=== PATIENT | male | born 1940 | race Caucasian/White ===

== ENCOUNTER 2016-07-30 12:01 | Outpatient (RCR) | payer MEDICARE, OTHER ==
--- OUTSIDE RECORDS SUMMARY | 2016-07-13 15:28 | XMS REPORT | Continuity of Care Document ---
Author Author [facility] Organization [facility] Address Unknown Phone Unavailable Care Team Providers Care Patient Portal Representative Name Role Phone Nidhi Roper PCP [phone] Source Comments Some departments are not documenting in the electronic medical record. If you do not see the information that you expected, contact Release of Information in the Health Information Management department at [phone] for further assistance in locating additional records.[facility] Active Allergies and Adverse Reactions No Known Allergies Current Medications Prescription Sig. Disp. Refills Start End Date Status Date furosemide (LASIX) 40 mg Take 40 mg by mouth Active tablet daily. atorvastatin (LIPITOR) 10 Take 10 mg by mouth Active mg tablet daily. aspirin 81 mg chewable Take 81 mg by mouth Active tablet daily. benazepril (LOTENSIN) 40 Take 40 mg by mouth Active mg tablet daily. glyBURIDE (DIABETA) 5 mg Take 2.5 mg by mouth Active tablet daily with breakfast. metFORMIN-XR(+) Take 500 mg by mouth Active (GLUCOPHAGE XR) 500 mg daily with dinner. tablet spironolactone Take 25 mg by mouth every Active (ALDACTONE) 25 mg tablet 48 hours. COD LIVER OIL PO Take by mouth daily. Active GARLIC PO Take by mouth daily. Active apixaban (ELIQUIS) 5 mg Take 1 Tab by mouth twice 30 Tab 0 06/10/20 Active tab tablet daily. 15 metoprolol XL (TOPROL XL) Take 1.5 Tabs by mouth 135 Tab 3 06/10/20 Active 50 mg tablet daily. 15 Active Problems Problem Noted Date Chronic combined systolic and diastolic congestive heart failure (HCC) 05/17 Typical atrial flutter (HCC) 05/17/2015 Overview: 04/19/15: Successful DCCV. 04/19/15: CROW: EF 35-40%. Moderately impaired LV function. Moderate AV sclerosis. No thrombus. Mild MR. 04/18/15: Echo: LA size 5.1cm. EF 30%. 04/17/15: CT angio chest: No Pulm Embolism. Cardiac enlargement wit post sternotomy changes. Coronary artery disease involving coronary bypass graft of [place] heart without angina pectoris Overview: 2009: CABG at [place] Essential hypertension 05/17/2015 Type 2 diabetes mellitus (HCC) 05/17/2015 Social History Tobacco Use Types Packs/Day Years Used Date Former Smoker Cigarettes 0.5 5 Quit: 09/02/1984 Smokeless Tobacco: Former Chew User Alcohol Use Drinks/Week oz/Week Comments No Last Filed Vital Signs Vital Sign Reading Time Taken Blood Pressure 152/80 06/10/2015 10:22 AM CDT Pulse 70 06/10/2015 10:22 AM CDT Temperature 36.7 C (98.1 F) 06/10/2015 10:22 AM CDT Respiratory Rate - - Height 1.829 m (6') 06/09/2015 7:27 AM CDT Weight 83 kg (182 lb 15.7 oz) 06/09/2015 7:27 AM CDT Body Mass Index 24.81 06/09/2015 7:27 AM CDT Oxygen Saturation 100% 06/10/2015 10:22 AM CDT Plan of Care Health Maintenance Due Date Last Done Comments Physical (Comprehensive) 1947 Exam Pertussis Vaccine 1952 Tetanus Vaccine 1958 Dilated Eye Exam 1959 Foot Exam 1959 Hba1c 1959 Microalbumin 1959 Colorectal Cancer 1991 Screening Shingles Vaccine 2001 Prevnar/Pneumovax (#1) 2006 Influenza Vaccine 05/03/2016 Results from Last 3 Months Not on file
[~2016-07-30 12:01] MED LIST: AMLO10TA2 PO; AMLO5TAB2 PO; APIX5TAB PO; ASPI-983 PO; ATEN-147 PO; ATEN25TA PO; ATOR10TA66 PO; BENA40TA59 PO; BNZ40T PO; CEFU500T PO; COD1CAPS6 PO; DIGO250T PO; DIGO250T15 PO; FRSM40T PO; FURO40TA4 PO; GARL1CAP7 PO; GLYB2.5T2 PO; GLYB5TAB6 PO; KCL10CCR PO; METF500T8 PO; METO-272 PO; METO-274 PO; METO-351 PO; METO-352 PO; PRD20T PO; SPIR25TA3 PO
== END 2016-10-11 | disposition home or self-care (01) ==
LOC: CR 12:01
PROVIDERS: ATTEND Internal Medicine Cardiovascular Disease
DX: I50.9 Heart failure, unspecified (principal)
CPT/HCPCS: 93798

== ENCOUNTER → 2016-09-06 | Outpatient (CLI) | payer MEDICARE, OTHER ==
[~2016-09-06] MED LIST changes: +ALLO100T PO; +AMIO200T2 PO; +AMOX1TAB12 PO; +APIX2.5T PO; +METO-270 PO; +OSLT75C PO; +SACU1TAB PO
--- OUTSIDE RECORDS SUMMARY | 2016-09-06 13:09 | XMS REPORT | Continuity of Care Document ---
Author Author [facility] Organization [facility] Address Unknown Phone Unavailable Care Team Providers Care Certified Paralegal Name Role Phone Nidhi Roper PCP [phone] Source Comments Some departments are not documenting in the electronic medical record. If you do not see the information that you expected, contact Release of Information in the Health Information Management department at [phone] for further assistance in locating additional records.[facility] Active Allergies and Adverse Reactions No Known Allergies Current Medications Prescription Sig. Disp. Refills Start End Date Status Date furosemide (LASIX) 40 mg Take 40 mg by mouth twice Active tablet daily. glyBURIDE (DIABETA) 5 mg Take 2.5 mg by mouth Active tablet daily with breakfast. COD LIVER OIL PO Take by mouth daily. Active GARLIC PO Take by mouth daily. Active apixaban (ELIQUIS) 5 mg Take 1 Tab by mouth twice 30 Tab 0 06/10/20 Active tab tablet daily. 15 sacubitril/valsartan Take 1 Tab by mouth twice Active (ENTRESTO) 24/26 mg daily. tablet digoxin (DIGOX) 125 mcg Take 125 mcg by mouth Active tablet daily. allopurinol (ZYLOPRIM) Take 100 mg by mouth Active 100 mg tablet daily. Take with food. metoprolol XL (TOPROL XL) Take 2 Tabs by mouth 135 Tab 3 09/05/19 Active 50 mg extended release daily. 17 tablet atorvastatin (LIPITOR) 10 Take 10 mg by mouth 09/05/19 Discontin mg tablet daily. 17 ued aspirin 81 mg chewable Take 81 mg by mouth 09/05/19 Discontin tablet daily. 17 ued benazepril (LOTENSIN) 40 Take 40 mg by mouth 09/05/19 Discontin mg tablet daily. 17 ued metFORMIN-XR(+) Take 500 mg by mouth 09/05/19 Discontin (GLUCOPHAGE XR) 500 mg daily with dinner. 17 ued tablet spironolactone Take 25 mg by mouth every 09/05/19 Discontin (ALDACTONE) 25 mg tablet 48 hours. 17 ued metoprolol XL (TOPROL XL) Take 1.5 Tabs by mouth 135 Tab 3 06/10/20 09/05/19 Discontin 50 mg tablet daily. 15 17 ued Active Problems Problem Noted Date Ischemic cardiomyopathy 09/05/2016 Overview: 04/08/16 implantation of ICD - functioning normally but with high pacing threshold. last interrogation 07/11/16 04/13/16 Echo: EF 20%, 10/14/15 Echo: LVEF 25% 05/24/15 MUGA LVEF 33%, 05/19/15 MPE LVEF 22% 04/18/15 - 04/18/15 Echo and CROW LVEF 35 - 40% 02/07/16 [facility]: Single chamber ICD implantation: [employer] [place] passive dual coil 64 cm lead with model number 0286 and serial number [id number], lead - [employer] model E140 serial number [id number] Chronic combined systolic and diastolic congestive heart failure (HCC) 05/17 Typical atrial flutter (HCC) 05/17/2015 Overview: 04/19/15: Successful DCCV. 04/19/15: CROW: EF 35-40%. Moderately impaired LV function. Moderate AV sclerosis. No thrombus. Mild MR. 04/18/15: Echo: LA size 5.1cm. EF 30%. 04/17/15: CT angio chest: No Pulm Embolism. Cardiac enlargement wit post sternotomy changes. Coronary artery disease involving coronary bypass graft of [place] heart without angina pectoris Overview: 2008: CABG at [facility]. CABG x 5 - CARDONA to LAD x 2, 2 SVG to Right ventricular epicardial branch and PDA, SVG to obtuse marginal, Ligation of the left atrial appendage 05/19/15 MPI did not show ischemia or infarction but there was LV enlargement at 22% 04/13/16 Echo: marked impairment of LV systolic function with EF 20%, global hypokinesis of the LV, more marked in the anteroseptal wall. Mod Severe MR and TR mild to mod mitral anular calcification and aortic valve sclerosis without evidence of significant valvular stenosis. PASP est to approx 40 mmHg. Mod to mod severe enlargement of the LA Essential hypertension 05/17/2015 Type 2 diabetes mellitus (HCC) 05/17/2015 Most Recent Encounters Date Type Specialty Providers Description 09/13/2016 Hospital Cardiology Gagan Hernández MD Encounter 09/05/2016 Hospital Cardiology Gagan Hernández MD Arrived Encounter 09/05/2016 Office Visit Cardiology Gagan Hernández MD Atrial Flutter 09/05/2016 Pre-Procedure Cardiology Glenna Calles RN EP Pre-Procedure Instructions Instructions - tikosyn administration, AVN RFA, device upgrade to SECURITIES ATTORNEY-D and RV lead repositioning 09/05/2016 Orders Only Cardiology Mac, Referring 09/05/2016 Documentation Cardiology Дмитрий Toney RN Precertification - Medicare 09/05/2016 Pre-Procedure Cardiology Glenna Calles RN EP Pre-Procedure Instructions Instructions - tikosyn admission, AVN RFA and upgrade device with lead repositioning and cardioversion 09/05/2016 Orders Only Cardiology Angelina Shetty RN Ischemic cardiomyopathy (Primary Dx) 08/06/2016 Orders Only Cardiology Kaci Centeno Atrial fibrillation, unspecified type (HCC) (Primary Dx) Social History Tobacco Use Types Packs/Day Years Used Date Former Smoker Cigarettes 0.5 5 Quit: 09/02/1984 Smokeless Tobacco: Former Chew User Alcohol Use Drinks/Week oz/Week Comments No Last Filed Vital Signs Vital Sign Reading Time Taken Blood Pressure 124/90 09/05/2016 8:33 AM CONTROL INSPECTOR Pulse 116 09/05/2016 8:33 AM CONTROL INSPECTOR Temperature 36.7 C (98.1 F) 06/10/2015 10:22 AM CDT Respiratory Rate - - Height 1.854 m (6' 1") 09/05/2016 8:33 AM CONTROL INSPECTOR Weight 87.998 kg (194 lb) 09/05/2016 8:33 AM CONTROL INSPECTOR Body Mass Index 25.6 09/05/2016 8:33 AM CONTROL INSPECTOR Oxygen Saturation 100% 06/10/2015 10:22 AM CDT Plan of Care Date Type Specialty Providers Description 09/13/2016 Surgery Cardiology Gagan Hernández MD Upgrade to SECURITIES ATTORNEY-D [address] [place] [address] [phone] (Fax) 09/13/2016 Surgery Cardiology Gagan Hernández MD Atrio-Ventricular Node [address] [place] [address] [phone] (Fax) 12/04/2016 Appointment Cardiology Gagan Hernández MD [address] [place] [address] [phone] (Fax) 12/04/2016 Appointment Cardiology Gagan Hernández MD [address] [place] [address] [phone] (Fax) Health Maintenance Due Date Last Done Comments Physical (Comprehensive) 1947 Exam Pertussis Vaccine 1952 Tetanus Vaccine 1958 Dilated Eye Exam 1959 Foot Exam 1959 Hba1c 1959 Microalbumin 1959 Colorectal Cancer 1991 Screening Shingles Vaccine 2001 Prevnar/Pneumovax (#1) 2006 Influenza Vaccine 05/03/2016 Results from Last 3 Months ECG/QRS (09/05/2016) Component Value Range QRS DURATION 102
--- NOTE | 2016-09-06 15:21 | Diagnostic Imaging Report ---
INDICATION: Congestive heart failure. PA and lateral chest. FINDINGS: There are postop changes from a median sternotomy. There is a unipolar pacemaker with AICD. There is elevation of the left hemidiaphragm. There is a small left pleural effusion with some left basilar atelectasis. IMPRESSION: Left basilar atelectasis and effusion. No change compared to 08/03/2016. Dictated by: Dictated on workstation # [id number]
== END ==
LOC: RAD 13:05
PROVIDERS: ATTEND Family Medicine
DX: I50.42 Chronic combined systolic (congestive) and diastolic (congestive) heart failure (principal); J98.11 Atelectasis; J90 Pleural effusion, not elsewhere classified; Z95.0 Presence of cardiac pacemaker
CPT/HCPCS: 71020

== ENCOUNTER 2016-10-21 19:34 | Inpatient (IN) | payer MEDICARE, OTHER ==
[~2016-10-21] VITALS: Ht 182.9 cm; Wt 84.8 kg
[~2016-10-21 19:34] MED LIST changes: -ALLO100T PO; -AMIO200T2 PO; -AMOX1TAB12 PO; -APIX2.5T PO; -METO-270 PO; -OSLT75C PO; -SACU1TAB PO
--- OUTSIDE RECORDS SUMMARY | 2016-10-21 19:40 | XMS REPORT | Continuity of Care Document ---
Author Author [facility] Organization [facility] Address Unknown Phone Unavailable Care Team Providers Care [employer] Collision Estimator Name Role Phone Judson Nidhi PCP [phone] Source Comments Some departments are not documenting in the electronic medical record. If you do not see the information that you expected, contact Release of Information in the Health Information Management department at [phone] for further assistance in locating additional records.[facility] Active Allergies and Adverse Reactions No [...] twice Active (ENTRESTO) 24/26 mg daily. tablet allopurinol (ZYLOPRIM) Take 100 mg by mouth Active 100 mg tablet daily. Take with food. metoprolol XL (TOPROL XL) Take 3 Tabs by mouth 90 Tab 3 09/19/19 Active 25 mg extended release daily. Indications: 17 tablet CHRONIC HEART FAILURE amiodarone (CORDARONE) Take 1 Tab by mouth 90 Tab 3 09/19/19 Active 200 mg tablet daily. Take with food. 17 spironolactone Take 1 Tab by mouth 90 Tab 3 09/19/19 Active (ALDACTONE) 25 mg tablet daily. Take with food. 17 Active Problems Problem Noted Date Acute combined systolic and diastolic CHF, NYHA class 2 (HCC) 09/24/2016 Torsades de pointes (HCC) 09/19/2016 ICD (implantable cardioverter-defibrillator), biventricular, in situ 2016 Overview: 2016 Single-chamber ICD ([employer]) 09/13/16 RV lead revision, RA/LV lead placement and upgrade to BATCH UNLOADER-D (Defibrillation threshold testing (DFTs) at the time of implant) Paroxysmal atrial fibrillation (HCC) 09/12/2016 Overview: 09/17/16 Tikosyn Initiation 09/13/16 AV Katherine Radiofrequency Ablation Ischemic cardiomyopathy 09/05/2016 Overview: 04/08/16 implantation of ICD - functioning normally but with high pacing threshold. last interrogation 07/11/16 04/13/16 Echo: EF 20%, 10/14/15 Echo: LVEF 25% 05/24/15 MUGA LVEF 33%, 05/19/15 MPE LVEF 22% 04/18/15 - 04/18/15 Echo and CROW LVEF 35 - 40% 02/07/16 [facility]: Single chamber ICD implantation: [employer] [place] passive dual coil 64 cm lead with model number 0286 and serial number [id number], lead - [employer] model E140 serial number [id number] Chronic combined systolic and diastolic congestive heart failure (HCC) 05/17 Typical atrial flutter (HCC) 05/17/2015 Overview: 04/19/15: Successful DCCV. 04/19/15: CROW: EF 35-40%. Moderately impaired LV function. Moderate AV sclerosis. No thrombus. Mild MR. 04/18/15: Echo: LA size 5.1cm. EF 30%. 04/17/15: CT angio chest: No Pulm Embolism. Cardiac enlargement wit post sternotomy changes. Coronary artery disease involving coronary bypass graft of sun'aq heart without angina pectoris Overview: 2008: CABG at [facility]. CABG x 5 - CARDONA to [...] Recent Encounters Date Type Specialty Providers Description 09/19/2016 Hospital Cardiology Ggaan Hernández MD Encounter 09/19/2016 Ancillary Cardiology Gagan Hernández MD Biventricular ICD Orders (implantable cardioverter-defibrillato r) in place (Primary Dx); Ischemic cardiomyopathy 09/18/2016 Surgery Cardiology Cath, Physician Coronary Angiography 09/14/2016 [facility] Cardiology Gagan Hernández MD Encounter 09/13/2016 Hospital Cardiology Gagan Hernández MD Encounter 09/13/2016 Surgery Cardiology Gagan Hernández MD Atrio-Ventricular Node Ablation 09/13/2016 Surgery Cardiology Gagan Hernández MD Fluoroscopy 09/12/2016 [facility] Cardiology Khushboo Costa APRN Encounter 09/12/2016 [facility] Joe Watson MD Essential hypertension - Encounter Gagan Hernández MD 09/19/2016 Alesia Jerry MD Mulhern, Kevin M, MD 09/12/2016 [facility] Tamra Reid PA-C Illness, unspecified Encounter 09/12/2016 [facility] Cardiology Joe Watson MD Encounter 09/12/2016 Anesthesia Cardiology Maicol Dixon MD Event 09/10/2016 Pre-Admit Cardiology Tamra Reid PA-C Orders Only 09/10/2016 Documentation Cardiology Conchis Dukes RN Labs Only - Pre -procedure labs 09/05/2016 [facility] Cardiology Gagan Hernández MD Encounter 09/05/2016 Office Visit Cardiology Gagan Hernández MD Atrial Flutter 09/05/2016 Pre-Procedure Cardiology Glenna Calles, VIVEK EP Pre-Procedure Instructions Instructions - tikosyn administration, AVN RFA, device upgrade to BATCH UNLOADER-D and RV lead repositioning 09/05/2016 Orders Only Cardiology Mac, Referring 09/05/2016 Documentation Cardiology Дмитрий Toney RN Precertification - Medicare 09/05/2016 Pre-Procedure Cardiology Glenna Calles, VIVEK EP Pre-Procedure Instructions Instructions - tikosyn admission, [...] Vital Sign Reading Time Taken Blood Pressure 94/63 09/19/2016 12:08 PM YIELD ENGINEER Pulse 80 09/19/2016 12:08 PM YIELD ENGINEER Temperature 36.5 C (97.7 F) 09/19/2016 12:08 PM YIELD ENGINEER Respiratory Rate - - Height 1.829 m (6') 09/13/2016 7:51 PM YIELD ENGINEER Weight 89.812 kg (198 lb) 09/19/2016 6:00 AM YIELD ENGINEER Body Mass Index 26.85 09/19/2016 6:00 AM YIELD ENGINEER Oxygen Saturation 97% 09/19/2016 12:08 PM YIELD ENGINEER Plan of Care Date Type Specialty Providers Description 12/04/2016 Appointment Cardiology Gagan Hernández MD [address] [facility] [address] [place] [address] [phone] (Fax) 12/04/2016 Appointment Cardiology Gagan Hernández MD [address] [facility] [address] [place] [address] [phone] (Fax) 12/20/2016 Appointment Cardiology Health Maintenance Due Date Last Done Comments Physical (Comprehensive) 1948 Exam Pertussis Vaccine 1952 Tetanus Vaccine 1958 Dilated Eye Exam 1959 Foot Exam 1959 Hba1c 1959 Microalbumin 1959 Colorectal Cancer 1991 Screening Shingles Vaccine 2001 Prevnar/Pneumovax (#1) 2006 Influenza Vaccine 05/03/2016 Procedures from Last 3 Months Procedure Name Priority Date/Time Associated Diagnosis Comments ECG-SCAN 09/25/2016 Results for this 9:18 AM YIELD ENGINEER procedure are in the results section. ECG-SCAN 09/25/2016 Results for this 9:18 AM YIELD ENGINEER procedure are in the results section. TELEMETRY STRIPS-SCAN 09/24/2016 Results for this 1:09 PM YIELD ENGINEER procedure are in the results section. PROCEDURE RECORD-SCAN 09/21/2016 Results for this 10:15 AM YIELD ENGINEER procedure are in the results section. ECG UNCONFIRMED-SCAN 09/21/2016 Results for this 8:57 AM YIELD ENGINEER procedure are in the results section. ECG UNCONFIRMED-SCAN 09/21/2016 Results for this 8:57 AM YIELD ENGINEER procedure are in the results section. ECG UNCONFIRMED-SCAN 09/21/2016 Results for this 8:57 AM YIELD ENGINEER procedure are in the results section. ECG UNCONFIRMED-SCAN 09/21/2016 Results for this 8:57 AM YIELD ENGINEER procedure are in the results section. ECG UNCONFIRMED-SCAN 09/21/2016 Results for this 8:57 AM YIELD ENGINEER procedure are in the results section. ECG-SCAN 09/21/2016 Results for this 8:56 AM YIELD ENGINEER procedure are in the results section. ECG-SCAN 09/21/2016 Results for this 8:56 AM YIELD ENGINEER procedure are in the results section. ECG-SCAN 09/21/2016 Results for this 8:56 AM YIELD ENGINEER procedure are in the results section. ECG-SCAN 09/21/2016 Results for this 8:56 AM YIELD ENGINEER procedure are in the results section. ECG-SCAN 09/21/2016 Results for this 8:56 AM YIELD ENGINEER procedure are in the results section. ECG-SCAN 09/19/2016 Results for this 10:28 AM YIELD ENGINEER procedure are in the results section. ECG-SCAN 09/19/2016 Results for this 10:28 AM YIELD ENGINEER procedure are in the results section. ECG-SCAN 09/19/2016 Results for this 10:28 AM YIELD ENGINEER procedure are in the results section. ECG-SCAN 09/19/2016 Results for this 10:28 AM YIELD ENGINEER procedure are in the results section. ECG-SCAN 09/14/2016 Results for this 8:36 AM YIELD ENGINEER procedure are in the results section. ECG-SCAN 09/14/2016 Results for this 8:36 AM YIELD ENGINEER procedure are in the results section. CONSULT IV THERAPY TEAM Routine 09/12/2016 3:10 PM YIELD ENGINEER Results from Last 3 Months ECG-SCAN (09/25/2016 9:18 AM) Narrative Ordered by an unspecified provider. ECG-SCAN (09/25/2016 9:18 AM) Narrative Ordered by an unspecified provider. TELEMETRY STRIPS-SCAN (09/24/2016 1:09 PM) Narrative Ordered by an unspecified provider. PROCEDURE RECORD-SCAN (09/21/2016 10:15 AM) Narrative Ordered by an unspecified provider. CARDIAC CATH REPORT (09/21/2016 9:46 AM) Procedure Note e Sep 18, 2016 5:48 PM YIELD ENGINEER Formatting of this note may be different from the original. [facility] CARDIAC CATHETERIZATION REPORT Page 2 NISHANT Morales : 1940 KU#: [id number] MR #/Billing ID #: [id number] / [id number] DATE: 09/18/2016 ICE CRUSHER: Han Amaya MD DICTATING PROVIDER: Isauro Charles MD REFERRING PHYSICIAN: NIDHI FARIAS FELLOW: Isauro Charles MD PROCEDURES PERFORMED: 1. Left heart catheterization. 2. Selective angiography. 3. Graft angiography of the saphenous venous graft to the jump graft to PDA and right marginal artery. 4. Graft angiography, which is a jump graft from SVG to OM-1 and OM-2. 5. Graft angiography of CARDONA to LAD. INDICATION FOR PROCEDURE: Mr. Nishant Farias is a 75-year-old man who was on Tikosyn and had developed torsades. Given patient has a history of coronary artery disease, status post CABG, there was some concern that this torsades may be an ischemic origin and as a result of which they wanted to get a cardiac catheterization. Patient referred to us for cardiac catheterization. WRITTEN INFORMED CONSENT: Mr. Nishant Farias was consented in the holding area after a thorough explanation of the risks and benefits of the procedure, including alternatives of the procedure. Patient agreed to proceed and gave the written informed consent. DETAILS OF THE PROCEDURE: Mr. Nishant Farias was brought to cardiac catheterization laboratory in a fasting and nonsedated state. Moderate sedation was achieved with 1 mg of Versed and 25 mcg IV fentanyl during the entire procedure and this was maintained. All neurological, hemodynamic, and respiratory parameters, including respiratory rate, heart rate, blood pressure, EKG, level of consciousness, respiratory rate, and pulse oximetry were monitored during the entire procedure by myself, Dr. Han Amaya, and the optical lab technician staff. Total duration of the procedure was 36 minutes. After sterile prep and drape, 20 mL of 1% lidocaine was injected in the right groin subcutaneously, and a 5-[place] long sheath was inserted into the right femoral artery over the regular J-tip guidewire as there was tortuosity noted in the iliac arteries. Once the long sheath was in place, a 5-[place] JL4 was advanced over the guidewire into the aortic root and engaged to the left coronary ostia and left coronary artery images done in multiple views. JL4 removed. A 5-[place] JR4 was advanced over the guidewire into the aortic root and engaged to the right coronary ostia, and right coronary artery images done in multiple views. Then, the JR4 was engaged to the saphenous venous graft to the PDA and saphenous venous graft to PDA angiography done. This graft was also a jump graft to the right active marginal artery. Then, the JR4 was engaged to the saphenous venous graft, which is a jump graft to OM-1 and OM-2, and graft angiography done. Then, JR4 was pulled back, and then further using a guidewire we were able to engage to the left subclavian artery. Over the guidewire, we were able to advance the JR4 all the way into the CARDONA. The CARDONA to LAD angiography done. This beltran the end of the diagnostic coronary angiography and graft angiography. JR4 catheter removed. Then, a 5-[place] pigtail catheter advanced over the guidewire into the aortic root and further advanced into the LV, and LV pressure measurements done. Then, the pigtail catheter pulled back from LV into the aorta, and LV-AO pullback gradient recorded. This beltran the end of the left heart catheterization. After reviewing the images, this was the end of the case. HEMOSTASIS: Hemostasis was achieved at the right femoral arterial access site using the manual sheath pullout ACT protocol in the holding area. FINDINGS OF THE PROCEDURE: HEMODYNAMICS: 1. Aortic systolic pressure 118 with a diastolic of 66 with a mean of 83 mmHg. 2. Left ventricle systolic pressure 118 with left ventricular end-diastolic pressure of 15 mmHg. CORONARY ANGIOGRAPHY FINDINGS: 1. Left main: Left main is a large vessel arising from the left coronary cusp. It bifurcates into LAD and left circumflex. Left main has some calcification. It has no significant stenosis. 2. LAD: LAD is a type 3 configuration vessel wrapping around the apex. However, it is high grade haziness, calcified lesion in the proximal portion, around 80% to 90% stenosis. It gives rise to 4 diagonal branches before the competitive flow is noted from CARDONA to LAD. These 4 diagonal branches are small branches, around 1.5 to 2 mm vessels. 3. Left circumflex: Left circumflex has a high-grade stenosis in the proximal portion, around 80% to 90% haziness. After this, it gives rise to an AV groove branch, and after this is completely occluded. There seems to be competitive flow noted in the OM-1; however, there is no competitive flow noted in the distal left circumflex, is probably a continuation for OM-2. 4. RCA: RCA is a large, dominant vessel arising from right coronary cusp. It has 100% occlusion in the mid RCA SHREDDER OPERATOR and then multiple sequential high-grade lesions in the proximal portion. 5. Saphenous venous graft to PDA and jump graft to the right acute marginal artery. This is widely patent and has around 20% stenosis right around the anastomosis of the SVG to the PDA, but it is widely patent and has no other significant stenosis. 6. Saphenous venous graft, which is a jump graft to OM-1 and sequential graft to OM-1 and OM-2. The sequential graft to OM-1 is widely patent, but sequential to OM-2 is completely occluded. 7. CARDONA to LAD: CARDONA to LAD is widely patent and post anastomosis the LAD is a medium-size vessel, which wraps around the apex and a type 3 configuration, with no significant stenosis. BLOOD LOSS: 20 mL. SPECIMENS REMOVED: None. COMPLICATIONS: None. CONTRAST: Type Visipaque 320, amount 70 mL. FLUORO TIME: 7.8 minutes. AIR KERMA: 866 mGy. MEDICATIONS USED: 1. 1% lidocaine 20 mL subcutaneously. 2. Fentanyl 25 mg IV. 3. Versed 1 mg IV. CONCLUSIONS AND RECOMMENDATIONS: 1. Multivessel CAD with 80% to 90% high-grade occlusion of proximal LAD, 80% to 90% stenosis of the proximal left circumflex, 100% occlusion of the distal left circumflex into OM-2, 100% occlusion of the mid RCA with patent saphenous venous graft to PDA/right marginal artery, patent SVG graft to OM-1, but occluded sequential portion to OM-2, patent CARDONA to LAD, and normal LV filling pressures, LVEDP of 15 mmHg. 2. If there is ischemia and patient has recurrent symptoms or torsades in absence of Tikosyn or other confounding factors, can consider intervention to the distal left circumflex into OM-2, which has an occluded graft portion so the sun'aq vessel can be opened up. 3. Risk factor and lifestyle modification changes. Dr. Han Amaya was present throughout the procedure, monitoring and supervision, performing important parts of the procedure himself when necessary. I was personally present throughout the entire procedure. Han Amaya MD JP/Melissa /[id number] cc: - NIDHI Farias DO, [address] [place] [address], Fax: [phone] ECG UNCONFIRMED-SCAN (09/21/2016 8:57 AM) Narrative Ordered by an unspecified provider. ECG UNCONFIRMED-SCAN (09/21/2016 8:57 AM) Narrative Ordered by an unspecified provider. ECG UNCONFIRMED-SCAN (09/21/2016 8:57 AM) Narrative Ordered by an unspecified provider. ECG UNCONFIRMED-SCAN (09/21/2016 8:57 AM) Narrative Ordered by an unspecified provider. ECG UNCONFIRMED-SCAN (09/21/2016 8:57 AM) Narrative Ordered by an unspecified provider. ECG-SCAN (09/21/2016 8:56 AM) Narrative Ordered by an unspecified provider. ECG-SCAN (09/21/2016 8:56 AM) Narrative Ordered by an unspecified provider. ECG-SCAN (09/21/2016 8:56 AM) Narrative Ordered by an unspecified provider. ECG-SCAN (09/21/2016 8:56 AM) Narrative Ordered by an unspecified provider. ECG-SCAN (09/21/2016 8:56 AM) Narrative Ordered by an unspecified provider. DEVICE EVALUATION - REMOTE ICD (09/19/2016 4:50 PM) Component Value Range Generator Model # INOGEN X4 BATCH UNLOADER-D G148 Generator Serial # [id number] Generator Implnat Date 09/13/2016 GUILLERMINA/EOL Indicator j2ee programmer/transmitter indicated Generator Local Delivery Driver [employer] Generator Investigational No Wireless Generator Yes Device Type BATCH UNLOADER-D Device Wolford Latitude Consult Transmitter Compatible Atrial Lead Model # CapSureFix [id number] MRI SureScan 5076 - 52cm Atrial Lead Serial # [id number] Atrial Lead Implant Date 09/13/2016 Atrial Lead Diaph. 10 Stimulation Atrial Lead Local Delivery Driver Medtronic Atrial Lead No Investigational Atrial Lead Fixation active fixation Atrial Lead Location mid lateral right atrium Atrial Lead Pin Connector IS1 Atrial Lead Polarity Bipolar RV Lead Model # ENDOTAK RELIANCE G Model 0296 64cm RV Lead Serial # [id number] RV Lead Implant Date 09/13/2016 RV Lead Diaph. 10 Stimulation RV Lead Local Delivery Driver [employer] RV Lead Investigational No RV Lead Fixation active fixation RV Lead Location RV low septum RV Lead Pin Connector ICD IS1 RV Lead Coil Dual LV Lead Model # ACUITY X4 Spiral S Model 4674 LV Lead Serial # [id number] LV Lead Implant Date 09/13/2016 LV Lead Polarity Other IS4 LV Lead Configuration E1-E3 Other LV Lead Local Delivery Driver [employer] LV Lead Investigational No LV Lead Fixation passive fixation LV Lead Location posterior lateral vein LV Lead Polarity Mulitpolar Device Mode DDD Lower Rate Limit 90 Upper Rate Limit 130 Sensor Rate Limit 130 Pace AV Delay 180 Sense AV Delay 180 VT Detect Rate (bpm) 150 VT Detect Rate Tx MONITOR ONLY FVT Detect Rate (bpm) 185 FVT Detect Rate Tx ATP AND SHOCKS VF Detect Rate (bpm) 220 VF Detect Rate Tx ATP AND SHOCKS Mode Switch (bpm) 150 Mode Switch Status On Device Implanted By Gagan Hernández MD EP Device Followed by Dr. Hernández Name Pacemaker Dependant Yes EP Device Followed By [facility] Date of Last Remote Check 09/14/16 Next Remote Check Due 12/20/16 AT/AF Daily Exira Hours 6 Remote Monitoring? Yes Remote Check? Yes Daily Exira Threshld On Alert? VF Detection/Therapy Off On Narrative Current Monitoring Period: 09/14/16 - 12/20/16 INITIAL TRANSMISSION: NO CHARGE [09/20/2016 9:39:30 AM - LATOYA EL] Remote alert for ventricular shock therapy delivered to convert arrhythmia. Known issue. Pt was in hospital at time. Device implanted 09/13/16. Shock occurred 09/14/16 at 15:20. Shock X 1 successful. 286 avg V rate bpm. See notes in chart from 09/14/16 for further detail. See attached report for further detail. Report sent to [facility] for review. [09/19/2016 4:51:29 PM - JACK SHEEHAN]This is an initial transmission post implant.No current data to report for measurements. No events.AP-BiVP on presenting. POC GLUCOSE (09/19/2016 12:08 PM)Only the most recent of 31 results within the time period is included. Component Value Range Glucose, POC 163 (H) 70-100 MG/DL ECG-SCAN (09/19/2016 10:28 AM) Narrative Ordered by an unspecified provider. ECG-SCAN (09/19/2016 10:28 AM) Narrative Ordered by an unspecified provider. ECG-SCAN (09/19/2016 10:28 AM) Narrative Ordered by an unspecified provider. ECG-SCAN (09/19/2016 10:28 AM) Narrative Ordered by an unspecified provider. CBC (09/19/2016 4:57 AM)Only the most recent of 9 results within the time period is included. Component Value Range White Blood Cells 8.9 4.5-11.0 K/UL RBC 5.94 (H) 4.4-5.5 M/UL Hemoglobin 16.1 13.5-16.5 GM/DL Hematocrit 51.5 (H) 40-50 % MCV 86.7 80-100 FL MCH 27.2 26-34 PG MCHC 31.3 (L) 32.0-36.0 G/DL RDW 20.8 (H) 11-15 % Platelet Count 126 (L) 150-400 K/UL MPV 9.1 7-11 FL Specimen Blood BASIC METABOLIC PANEL (09/19/2016 4:57 AM)Only the most recent of 12 results within the time period is included. Component Value Range Sodium 135 (L) 137-147 MMOL/L Potassium 5.0 3.5-5.1 MMOL/L Chloride 97 (L) 98-110 MMOL/L CO2 34 (H) 21-30 MMOL/L Anion Gap 4 3-12 Glucose 82 70-100 MG/DL Blood Urea Nitrogen 23 7-25 MG/DL Creatinine 0.94 0.4-1.24 MG/DL Calcium 9.0 8.5-10.6 MG/DL eGFR Non >60Comment: >60 mL/min The eGFR is not validated for use in drug dosing adjustments. Continue to use estimated creatinine clearance per dosing reference text. Please contact the Clinical Pharmacist for questions. eGFR >60Comment: >60 mL/min The eGFR is not validated for use in drug dosing adjustments. Continue to use estimated creatinine clearance per dosing reference text. Please contact the Clinical Pharmacist for questions. Specimen Blood MAGNESIUM (09/19/2016 4:57 AM)Only the most recent of 12 results within the time period is included. Component Value Range Magnesium 2.0 1.6-2.6 mg/dL Specimen Blood CHEST IMMEDIATE POST PROCEDURE (09/18/2016 1:47 PM) Impressions 1. No pneumothorax status post thoracentesis. 2. Persistent mild cardiomegaly with no significant change in appearance of moderate left and small right pleural effusions. 3. Slight improved aeration in the left lung base. By my electronic signature, I attest that I have personally reviewed the images for this examination and formulated the interpretations and opinions expressed in this report Finalized by INDER MCCANN M.D. on 09/18/2016 3:07 PM. Dictated by Hamzah Banks M.D. on 09/18/2016 1:54 PM. Narrative CHEST IMMEDIATE POST PROCEDURE Clinical history: Post thoracentesis (left). Comparison: CT chest 09/16/2016 and CXR 09/15/2016 Findings: Prior median sternotomy. Left chest wall cardiac conduction device remains in place with leads in stable position. Persistent mild cardiomegaly. Pulmonary vasculature is within normal limits. Unchanged moderate left pleural effusion with slight improved aeration in adjacent atelectasis or consolidation. The small right pleural effusion also appears unchanged. No pneumothorax is identified. Procedure Note Interface, Radiant Results - Tue Sep 18, 2016 3:10 PM YIELD ENGINEER CHEST IMMEDIATE POST PROCEDURE Clinical history: Post thoracentesis (left). Comparison: CT chest 09/16/2016 and CXR 09/15/2016 Findings: Prior median sternotomy. Left chest wall cardiac conduction device remains in place with leads in stable position. Persistent mild cardiomegaly. Pulmonary vasculature is within normal limits. Unchanged moderate left pleural effusion with slight improved aeration in adjacent atelectasis or consolidation. The small right pleural effusion also appears unchanged. No pneumothorax is identified. IMPRESSION 1. No pneumothorax status post thoracentesis. 2. Persistent mild cardiomegaly with no significant change in appearance of moderate left and small right pleural effusions. 3. Slight improved aeration in the left lung base. By my electronic signature, I attest that I have personally reviewed the images for this examination and formulated the interpretations and opinions expressed in this report Finalized by INDER MCCANN M.D. on 09/18/2016 3:07 PM. Dictated by Hamzah Banks M.D. on 09/18/2016 1:54 PM. IR ASPIRATION/DRAIN (09/18/2016 1:15 PM) Impressions Successful ultrasound guided thoracentesis with removal of 900 ml of fluid. Finalized by Nahid Rodriguez M.D. on 09/19/2016 9:05 AM. Dictated by Nahid Rodriguez M.D. on 09/19/2016 9:00 AM. Narrative Thoracentesis: History: Pleural effusion Technique and Findings: The risks and benefits of the procedure were explained to the patient, who was allowed to ask any questions at that time.An informed consent was obtained. Using ultrasound guidance, an appropriate insertion site in the lower left chest was marked.The patient was prepped and draped in the usual sterile fashion.A thoracentesis needle was inserted into the pleural space with return of clear yellow-colored pleural fluid.Approximately 900 ml of fluid was aspirated and the needle subsequently removed. The patient tolerated the procedure well. A single expiratory view of the chest would be obtained to assess for a pneumothorax. Sedation: 0 mg IV Versed, 0 mcg IV Fentanyl Procedure Note Interface, Radiant Results - SatSep 19, 2016 9:08 AM YIELD ENGINEER Thoracentesis: History: Pleural effusion Technique and Findings: The risks and benefits of the procedure were explained to the patient, who was allowed to ask any questions at that time. An informed consent was obtained. Using ultrasound guidance, an appropriate insertion site in the lower left chest was marked. The patient was prepped and draped in the usual sterile fashion. A thoracentesis needle was inserted into the pleural space with return of clear yellow-colored pleural fluid. Approximately 900 ml of fluid was aspirated and the needle subsequently removed. The patient tolerated the procedure well. A single expiratory view of the chest would be obtained to assess for a pneumothorax. Sedation: 0 mg IV Versed, 0 mcg IV Fentanyl IMPRESSION Successful ultrasound guided thoracentesis with removal of 900 ml of fluid. Finalized by Nahid Rodriguez M.D. on 09/19/2016 9:05 AM. Dictated by Nahid Rodriguez M.D. on 09/19/2016 9:00 AM. CELL COUNT W/DIFF-FLUIDS (09/18/2016 1:15 PM) Component Value Range White Blood Cells,Fluid 360 /UL Red Blood Cells,Fluid 6000 /UL Segmented Neutrophils, 7 % Fluid Lymphocytes,Fluid 83 % Monocyte/Histo,Fluid 10 % Eosinophils, Fluid 0 % Fluid Source THORACENTESIS FLUID Pathology HEMORRHAGIC FLUID Interpretation,Fluid CHRONIC INFLAMMATION Pathologist Signature INTERPRETED BY MARIANA CABAN M.D. By the PATH SIGNATURE ABOVE, I attest that I have personally formulated the final interpretation expressed in this report and that the above diagnosis is based upon my examination of the slides and/or other material indicated in this report. Specimen Fluid - Thoracentesis Fluid NON-MOLDED GOODS [employer]ER CYTOLOGY (BODY FLUIDS/TISSUE) (09/18/2016 10:28 AM) Component Value Range Cytology [facility] [email or web address] Carly Spangler MD, Director Cytopathology Department of Pathology and Laboratory Medicine [address] [place] [id number] Office: [phone] CYTOLOGY REPORT NAME: NISHANT FARIAS CYTOLOGY #: [id number] MR #: [id number] ALT ID #: [id number] #: [id number] LOCATION: [facility] DATE OF PROCEDURE: 09/18/2016 10:28 AGE: 75 SEX: M DATE RECEIVED: 09/19/2016 : 1940 TIME RECEIVED: 10:28 PHYSICIAN: ALESIA JERRY DATE OF REPORT: 09/19/2016 COPY TO: GAGAN HERNÁNDEZ RAGHUVEER MULHERN, KEVIN DATE OF PRINTIN09/19/2016 HISTORY: Date of Last Menstrual Period: None Given Menstrual History: None Given Contraceptive History: None Given Cancer History: None Given Infection History: None Given Treatment History: None Given Other Clinical Conditions: None Given CLINICAL DIAGNOSIS: 75 year old male with pleural effusion, history of heart disease. MATERIAL RECEIVED: A: Pleural Fluid, Left ################################################## ###################### Final Diagnosis: A. Pleural Fluid, Left: Negative for malignant cells. Attestation: By this signature, I attest that I have personally formulated the final interpretation expressed in this report and that the above diagnosis is based upon my examination of the slides and/or other material indicated in this report. mp/09/19/2016 +++Electronically Signed Out By Fly Puentes MD PhD, Attending Physician+++ Cervical cytology is a SCREENING TEST primarily for detecting cancers and precancerous lesions. This screening test has a well documented false negative rate. Your patient's pap test results should be interpreted in conjunction with history and clinical findings. Reported using [employer] terminology. ################################################## ###################### PTT (APTT) (09/18/2016 5:40 AM)Only the most recent of 8 results within the time period is included. Component Value Range APTT 103.8 (H) 24.0-40.0 SEC Specimen Blood US DOPPLER VENOUS W EXTRM LEFT (09/16/2016 2:14 PM)Only the most recent of 2 results within the time period is included. Impressions Limited examination of the left subclavian vein secondary to overlying bandage material, although no evidence of DVT is visualized within the surveyed areas. By my electronic signature, I attest that I have personally reviewed the images for this examination and formulated the interpretations and opinions expressed in this report Finalized by Edgar Martínez M.D. on 09/16/2016 2:23 PM. Dictated by Joel Montelongo M.D. on 09/16/2016 2:14 PM. Narrative LIMITED DOPPLER ULTRASOUND OF THE LEFT UPPER EXTREMITY CLINICAL HISTORY: 75-year-old male, left forearm swelling. TECHNIQUE: Limited real-time grayscale sonographic images were obtained throughout the left upper extremity with attention to the left internal jugular, and prominent , and subclavian veins with additional color Doppler and duplex acquisitions. COMPARISON: Left extremity Doppler from September 15, 2016. FINDINGS: Edgar Martínez M.D. has personally reviewed these images and formulated the interpretations and opinions expressed in this report. No filling defects are identified within the left internal jugular, and prominent, and axillary veins. There is limited evaluation of the subclavian vein as there was overlying bandage material the patient did not want removed. There is partial visualization of cardiac conduction device leads within the left subclavian vein. No additional filling defects are identified within the medial aspect of the subclavian vein. No evidence of soft tissue mass or fluid collection. CT CHEST W CONTRAST (09/16/2016 12:04 PM)Only the most recent of 2 results within the time period is included. Impressions 1.Limited evaluation of the left subclavian vein. If there is clinical concern for left upper extremity thrombus having developed since one day prior, a repeat left upper extremity venous Doppler could be performed to further evaluate this finding. 2.Near-complete resolution of postoperative gas and blood products along the left chest wall cardiac conduction device battery pack. 3.Postsurgical changes of median sternotomy with persistent mild cardiomegaly and sun'aq coronary artery disease. 4.Unchanged moderate left and small right pleural effusions with bibasilar consolidation, left greater than right. 5.Persistent mild upper abdominal ascites and gallbladder sludge. 6.Unchanged right upper lobe pulmonary nodule, which most likely represents a tiny noncalcified granuloma. In the absence of significant clinical risk factors for pulmonary malignancy, no further follow-up of this nodule is required. By my electronic signature, I attest that I have personally reviewed the images for this examination and formulated the interpretations and opinions expressed in this report Finalized by Pako Juarez M.D. on 09/16/2016 12:36 PM. Dictated by Joel Montelongo M.D. on 09/16/2016 12:[address] CHEST WITH CONTRAST CLINICAL HISTORY: 75-year-old male, left upper extremity swelling, concern for subclavian thrombus. TECHNIQUE: Multiple contiguous axial CT images were obtained through the chest following the administration of IV contrast.Post processing coronal and sagittal reconstruction images were made from the axial images. COMPARISON: CT chest September 14, 2016. IV CONTRAST: Isovue-370 FINDINGS: Lower Neck: Unremarkable. Axilla, Mediastinum and Isabela: No axillary, mediastinal, or hilar lymphadenopathy. Minimal high density material is noted within the distal esophagus. Subtle mild thickening of the lower esophagus and the GE junction. Heart and Great Vessels: Postsurgical changes of median sternotomy and CABG. The heart remains mildly enlarged with dense sun'aq coronary artery disease. No pericardial effusion is identified. A left chest wall cardiac conduction device remains in similar position with right atrial, right ventricular, and coronary sinus leads in appropriate position. The thoracic aorta is normal in caliber. Airway, Lungs and Pleura: The central airways are widely patent. There are persistent moderate left and small right pleural effusions with bibasilar atelectasis, greater on the left. A tiny nodule is noted within the anterior aspect of the right upper lobe, measuring 0.3 cm. The left subclavian vein is poorly evaluated on this exam. Upper Abdomen: Mild abdominal ascites is redemonstrated. High density material is noted within the gallbladder lumen, which may represent biliary sludge or vicarious excretion of contrast. Chest Wall and Osseous Structures: Mild thoracolumbar spondylosis. No destructive osseous lesions are identified. There is moderate body wall edema. Mild bilateral gynecomastia. There has been resolution of near complete resolution of postoperative gas and blood products about the left upper chest cardiac conduction device. Procedure Note Interface, Radiant Results - Sun Sep 16, 2016 12:[address] CHEST WITH CONTRAST CLINICAL HISTORY: 75-year-old male, left upper extremity swelling, concern for subclavian thrombus. TECHNIQUE: Multiple contiguous axial CT images were obtained through the chest following the administration of IV contrast. Post processing coronal and sagittal reconstruction images were made from the axial images. COMPARISON: CT chest September 14, 2016. IV CONTRAST: Isovue-370 FINDINGS: Lower Neck: Unremarkable. Axilla, Mediastinum and Isabela: No axillary, mediastinal, or hilar lymphadenopathy. Minimal high density material is noted within the distal esophagus. Subtle mild thickening of the lower esophagus and the GE junction. Heart and Great Vessels: Postsurgical changes of median sternotomy and CABG. The heart remains mildly enlarged with dense sun'aq coronary artery disease. No pericardial effusion is identified. A left chest wall cardiac conduction device remains in similar position with right atrial, right ventricular, and coronary sinus leads in appropriate position. The thoracic aorta is normal in caliber. Airway, Lungs and Pleura: The central airways are widely patent. There are persistent moderate left and small right pleural effusions with bibasilar atelectasis, greater on the left. A tiny nodule is noted within the anterior aspect of the right upper lobe, measuring 0.3 cm. The left subclavian vein is poorly evaluated on this exam. Upper Abdomen: Mild abdominal ascites is redemonstrated. High density material is noted within the gallbladder lumen, which may represent biliary sludge or vicarious excretion of contrast. Chest Wall and Osseous Structures: Mild thoracolumbar spondylosis. No destructive osseous lesions are identified. There is moderate body wall edema. Mild bilateral gynecomastia. There has been resolution of near complete resolution of postoperative gas and blood products about the left upper chest cardiac conduction device. IMPRESSION 1. Limited evaluation of the left subclavian vein. If there is clinical concern for left upper extremity thrombus having developed since one day prior, a repeat left upper extremity venous Doppler could be performed to further evaluate this finding. 2. Near-complete resolution of postoperative gas and blood products along the left chest wall cardiac conduction device battery pack. 3. Postsurgical changes of median sternotomy with persistent mild cardiomegaly and sun'aq coronary artery disease. 4. Unchanged moderate left and small right pleural effusions with bibasilar consolidation, left greater than right. 5. Persistent mild upper abdominal ascites and gallbladder sludge. 6. Unchanged right upper lobe pulmonary nodule, which most likely represents a tiny noncalcified granuloma. In the absence of significant clinical risk factors for pulmonary malignancy, no further follow-up of this nodule is required. By my electronic signature, I attest that I have personally reviewed the images for this examination and formulated the interpretations and opinions expressed in this report Finalized by Pako Juarez M.D. on 09/16/2016 12:36 PM. Dictated by Joel Montelongo M.D. on 09/16/2016 12:03 PM. SHOULDER MIN 2 VIEWS LEFT (09/16/2016 10:47 AM) Impressions Mild degenerative changes about the left shoulder without evidence of fracture or dislocation. There is an at least moderate left pleural effusion partially visualized. Finalized by Atul Mirza M.D. on 09/16/2016 10:50 AM. Dictated by Atul Mirza M.D. on 09/16/2016 10:48 AM. Narrative Exam: 3views left shoulder Clinical history: Left shoulder pain and swelling after fall. Findings: 3 views of the left shoulder are submitted. There is mild AC joint spurring and mild spurring about the glenohumeral joint. No fractures or dislocations are identified. Cardiac pacer is partially visualized. A left pleural effusion is partially seen. Procedure Note Interface, Radiant Results - Sun Sep 16, 2016 10:53 AM YIELD ENGINEER Exam: 3views left shoulder Clinical history: Left shoulder pain and swelling after fall. Findings: 3 views of the left shoulder are submitted. There is mild AC joint spurring and mild spurring about the glenohumeral joint. No fractures or dislocations are identified. Cardiac pacer is partially visualized. A left pleural effusion is partially seen. IMPRESSION Mild degenerative changes about the left shoulder without evidence of fracture or dislocation. There is an at least moderate left pleural effusion partially visualized. Finalized by Atul Mirza M.D. on 09/16/2016 10:50 AM. Dictated by Atul Mirza M.D. on 09/16/2016 10:48 AM. FOREARM 2 VIEWS LEFT (09/15/2016 9:34 AM) Impressions No acute osseous abnormality of left elbow or forearm. Approved by Teo Rutherford M.D. on 09/15/2016 11:59 AM By my electronic signature, I attest that I have personally reviewed the images for this examination and formulated the interpretations and opinions expressed in this report Finalized by Claude Feng M.D. on 09/15/2016 12:24 PM. Dictated by Teo Rutherford M.D. on 09/15/2016 11:07 AM. Narrative ELBOW MIN 3 VIEWS LEFT, FOREARM 2 VIEWS LEFT CLINICAL HISTORY: Male, 75 years old. fall and swelling. COMPARISON:None TECHNIQUE:ELBOW MIN 3 VIEWS LEFT, FOREARM 2 VIEWS LEFT FINDINGS: Elbow: No joint effusion is identified. Mild subcutaneous edema. No radiopaque foreign bodies. There is no acute fracture or dislocation. No focal osseous lesions are seen.The joint spaces are preserved. Forearm: There is no acute fracture or dislocation. Alignment of the radius and ulna is anatomic. The visualized wrist joints are maintained. There are no focal osseous lesions.Vascular calcification. There are no radiopaque foreign bodies. Procedure Note Interface, Radiant Results - Sat Sep 15, 2016 12:27 PM YIELD ENGINEER ELBOW MIN 3 VIEWS LEFT, FOREARM 2 VIEWS LEFT CLINICAL HISTORY: Male, 75 years old. fall and swelling. COMPARISON: None TECHNIQUE: ELBOW MIN 3 VIEWS LEFT, FOREARM 2 VIEWS LEFT FINDINGS: Elbow: No joint effusion is identified. Mild subcutaneous edema. No radiopaque foreign bodies. There is no acute fracture or dislocation. No focal osseous lesions are seen. The joint spaces are preserved. Forearm: There is no acute fracture or dislocation. Alignment of the radius and ulna is anatomic. The visualized wrist joints are maintained. There are no focal osseous lesions. Vascular calcification. There are no radiopaque foreign bodies. IMPRESSION No acute osseous abnormality of left elbow or forearm. Approved by Teo Rutherford M.D. on 09/15/2016 11:59 AM By my electronic signature, I attest that I have personally reviewed the images for this examination and formulated the interpretations and opinions expressed in this report Finalized by Claude Feng M.D. on 09/15/2016 12:24 PM. Dictated by Teo Rutherford M.D. on 09/15/2016 11:07 AM. ELBOW MIN 3 VIEWS LEFT (09/15/2016 9:33 AM) Impressions No acute osseous abnormality of left elbow or forearm. Approved by Teo Rutherford M.D. on 09/15/2016 11:59 AM By my electronic signature, I attest that I have personally reviewed the images for this examination and formulated the interpretations and opinions expressed in this report Finalized by Claude Feng M.D. on 09/15/2016 12:24 PM. Dictated by Teo Rutherford M.D. on 09/15/2016 11:07 AM. Narrative ELBOW MIN 3 VIEWS LEFT, FOREARM 2 VIEWS LEFT CLINICAL HISTORY: Male, 75 years old. fall and swelling. COMPARISON:None TECHNIQUE:ELBOW MIN 3 VIEWS LEFT, FOREARM 2 VIEWS LEFT FINDINGS: Elbow: No joint effusion is identified. Mild subcutaneous edema. No radiopaque foreign bodies. There is no acute fracture or dislocation. No focal osseous lesions are seen.The joint spaces are preserved. Forearm: There is no acute fracture or dislocation. Alignment of the radius and ulna is anatomic. The visualized wrist joints are maintained. There are no focal osseous lesions.Vascular calcification. There are no radiopaque foreign bodies. Procedure Note Interface, Radiant Results - Sat Sep 15, 2016 12:27 PM YIELD ENGINEER ELBOW MIN 3 VIEWS LEFT, FOREARM 2 VIEWS LEFT CLINICAL HISTORY: Male, 75 years old. fall and swelling. COMPARISON: None TECHNIQUE: ELBOW MIN 3 VIEWS LEFT, FOREARM 2 VIEWS LEFT FINDINGS: Elbow: No joint effusion is identified. Mild subcutaneous edema. No radiopaque foreign bodies. There is no acute fracture or dislocation. No focal osseous lesions are seen. The joint spaces are preserved. Forearm: There is no acute fracture or dislocation. Alignment of the radius and ulna is anatomic. The visualized wrist joints are maintained. There are no focal osseous lesions. Vascular calcification. There are no radiopaque foreign bodies. IMPRESSION No acute osseous abnormality of left elbow or forearm. Approved by Teo Rutherford M.D. on 09/15/2016 11:59 AM By my electronic signature, I attest that I have personally reviewed the images for this examination and formulated the interpretations and opinions expressed in this report Finalized by Claude Feng M.D. on 09/15/2016 12:24 PM. Dictated by Teo Rutherford M.D. on 09/15/2016 11:07 AM. CHEST 2 VIEWS (09/15/2016 6:22 AM)Only the most recent of 2 results within the time period is included. Impressions Stable appearance of the chest with mild cardiomegaly, moderate left pleural effusion and left lower lung consolidation. Finalized by Atul Mirza M.D. on 09/15/2016 9:38 AM. Dictated by Atul Mirza M.D. on 09/15/2016 9:37 AM. Narrative 2 views of the chest Clinical history: Pleural effusion. Findings: Comparison chest film: 09/14/2016 Sternotomy wires and 3-lead cardiac pacer remains in place. There is persistent mild cardiomegaly. There is no significant change in moderate left pleural effusion and left lower lung consolidation. The right lung is clear. No pneumothorax is identified. Procedure Note Interface, Radiant Results - Sat Sep 15, 2016 9:41 AM YIELD ENGINEER 2 views of the chest Clinical history: Pleural effusion. Findings: Comparison chest film: 09/14/2016 Sternotomy wires and 3-lead cardiac pacer remains in place. There is persistent mild cardiomegaly. There is no significant change in moderate left pleural effusion and left lower lung consolidation. The right lung is clear. No pneumothorax is identified. IMPRESSION Stable appearance of the chest with mild cardiomegaly, moderate left pleural effusion and left lower lung consolidation. Finalized by Atul Mirza M.D. on 09/15/2016 9:38 AM. Dictated by Atul Mirza M.D. on 09/15/2016 9:37 AM. CHEST SINGLE VIEW (09/14/2016 4:28 PM) Impressions Persistent mild cardiomegaly, moderate left and small right pleural effusions, and left basilar atelectasis. Finalized by Atul Mirza M.D. on 09/14/2016 4:35 PM. Dictated by Atul Mirza M.D. on 09/14/2016 4:34 PM. Narrative Single view of the chest Clinical history: Congestive heart failure. Findings: Comparison chest film: Correlation is made with same-day chest CT Cardiac pacer leads and sternotomy wires remain in place. There is persistent mild cardiomegaly with moderate left and small right pleural effusion. Left basilar atelectasis is again noted. No pneumothorax. Procedure Note Interface, Radiant Results - SatSep 14, 2016 4:38 PM YIELD ENGINEER Single view of the chest Clinical history: Congestive heart failure. Findings: Comparison chest film: Correlation is made with same-day chest CT Cardiac pacer leads and sternotomy wires remain in place. There is persistent mild cardiomegaly with moderate left and small right pleural effusion. Left basilar atelectasis is again noted. No pneumothorax. IMPRESSION Persistent mild cardiomegaly, moderate left and small right pleural effusions, and left basilar atelectasis. Finalized by Atul Mirza M.D. on 09/14/2016 4:35 PM. Dictated by Atul Mirza M.D. on 09/14/2016 4:34 PM. DEVICE EVALUATION - ICD (09/14/2016 8:57 AM)Only the most recent of 3 results within the time period is included. Component Value Range Generator Model # INOGEN X4 BATCH UNLOADER-D G148 Generator Serial # [id number] Generator Implnat Date 09/13/2016 Generator Local Delivery Driver [employer] Generator Investigational No Wireless Generator Yes Device Type BATCH UNLOADER-D Atrial Lead Model # CapSureFix Novus MRI SureScan 5076 - 52cm Atrial Lead Serial # [id number] Atrial Lead Implant Date 09/13/2016 Atrial Lead Diaph. 10 Stimulation Atrial Lead Local Delivery Driver [employer] Atrial Lead No Investigational Atrial Lead Fixation active fixation Atrial Lead Location mid lateral right atrium Atrial Lead Pin Connector IS1 Atrial Lead Polarity Bipolar RV Lead Model # ENDOTAK RELIANCE G Model 0296 64cm RV Lead Serial # [id number] RV Lead Implant Date 09/13/2016 RV Lead Diaph. 10 Stimulation RV Lead Local Delivery Driver [employer] RV Lead Investigational No RV Lead Fixation active fixation RV Lead Location RV low septum RV Lead Pin Connector ICD IS1 RV Lead Coil Dual LV Lead Model # ACUITY X4 Spiral S Model 4674 LV Lead Serial # [id number] LV Lead Implant Date 09/13/2016 LV Lead Polarity Other IS4 LV Lead Configuration E1-E3 Other LV Lead Local Delivery Driver [employer] LV Lead Investigational No LV Lead Fixation passive fixation LV Lead Location posterior lateral vein LV Lead Polarity Mulitpolar Device Mode DDD Lower Rate Limit 90 Upper Rate Limit 130 Sensor Rate Limit 130 Pace AV Delay 180 Sense AV Delay 180 VT Detect Rate (bpm) 150 VT Detect Rate Tx MONITOR ONLY FVT Detect Rate (bpm) 185 FVT Detect Rate Tx ATP AND SHOCKS VF Detect Rate (bpm) 220 VF Detect Rate Tx ATP AND SHOCKS Mode Switch (bpm) 150 Mode Switch Status On Device Implanted By Gagan Hernández MD Pacemaker Dependant Yes EP Device Followed By MAC Narrative Device Eval by Rep Post Implant Please see attached HRM data sheet for > detail as needed. [09/14/2016 11:36:10 AM - MAICOL PANG] BATCH UNLOADER-D device checked by [employer] rep. Presenting Rhythm : AP-BiVP Underlying: SB w/CHB, No sig escape bts. No changes made by rep. Routed to E for co-sign. ECG-SCAN (09/14/2016 8:36 AM) Narrative Ordered by an unspecified provider. ECG-SCAN (09/14/2016 8:36 AM) Narrative Ordered by an unspecified provider. EP STUDY (09/13/2016 10:56 PM) Narrative [facility] [facility] REPORTER: Gagan Hernández MD MAINTENANCE SPECIALIST: Jhonny Reza MD PROCEDURE: 1. His bundle electrogram recording. 2. Placement of temporary pacing RV catheter 3. Catheter mapping and AV node ablation. 4. Moderate sedation INDICATION FOR PROCEDURE:Recurrent AFib with RVR refractory to medical Tx and with Sxs of fatigue and palpitations.Aslo CHF, 100% RV pacing and CM and RV lead Malfunction--so RV lead needs revision. CONSENT:The risks, benefits and alternatives to the procedure have been explained to the patient in great detail.The patient expresses understanding and wants to proceed. DETAILS OF PROCEDURE:The patient presented to the EP lab in sinus.The heart rate, blood pressure, respiratory rate, level of consciousness and oxygen saturation were monitored prior to, throughout and after the procedure.IV sedation was administered by a trained registered nurse who was, in turn, supervised by me. An 8.5 -[place] right femoral venous sheath and 6Fr sheaths were placed in the right femoral vein. An 8 mm Litespritezer catheter was used to map the His bundle area extensions. We identified the AV katherine region and ablated it using radiofrequency energy at 70 carrasco and 70 deg temperature ,with complete AV block and the patient was in VVI 40 beats per minute paced through the temporary pacemaker. He also had a passive fixation RV ICD lead in place for backup pacing. The patient was in sinus rhythm with CHB at the end of procedure. The patient tolerated the procedure well. 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 LIMITED ECHOCARDIOGRAM (09/13/2016 7:50 PM) Component Value Range BSA 2.09 m2 ECHO EF 20 % Referring Provider Nidhi Farias LVIDD 5.4 4.2-5.9 cm LVIDS 4.8 cm IVS 1.1 0.6-1.0 cm PW 1.3 0.6-1.0 cm FS 11.11 28-44 % EF 18.89 % LA size 6.0 3.0-4.0 cm LA volume 78.0 18-58 mL Left Atrium Index 37.32 10-32 Right Ventricular Basal 4.1 cm (2.4-4.2) Diameter Right Atrial Area 24.2 cm2 (<=18) Right Ventricular Mid 3.7 cm (2.0-3.5) Diameter Right Ventricular Long 8.7 cm (5.6-8.6) Diameter Sinus 3.7 2.1-3.5 cm Narrative 2D only study 1. Trivial pericardial effusion. Located posteriorly. No hemodynamic consequences 2. Normal LV size, mild concentric LVH, and severely reduced systolic function, EF ~ 20-25% 3. Diastolic function not assessed 4. Abnormal septal motion, likely secondary to RV pacing.Septum is D-shaped throughout the cardiac cycle indicative of probable RV pressure and volume overload 5. Mildly dilated RV with qualitatively moderately reduced systolic function 6. Moderate RA enlargement.Mild LA enlargement 7. Device leads noted in right sided cardiac chambers 8. Visualized valves were normal in structure and without 2D evidence of stenosis.Regurgitation not assessed 9. Probable left pleural effusion There are no prior studies for comparison. BNP (B-TYPE NATRIURETIC PEPTI) (09/12/2016 3:30 PM) Component Value Range B Type Natriuretic 1097.0 (H) 0-100 PG/ML Peptide Specimen Blood ECG/QRS (09/05/2016) Component Value Range QRS DURATION 102
[2016-10-21] MEDS ORDERED: SACU1TAB PO (19:46)
[2016-10-21] MEDS ORDERED: ALLO100T PO (19:46)
[2016-10-21] MEDS ORDERED: RT-ALBUTEROL/IPRATROPIUM 3 ML (DUONEB) VIAL INH ONE (20:00)
[2016-10-21 20:05] LABS: BASOPHILS % (AUTO) 0 % (0-10); EOSINOPHILS % (AUTO) 0 % (0-10); LYMPHOCYTES # (AUTO) 1.2 X 10^3 (1.0-4.0); LYMPHOCYTES % (AUTO) 10 % (12-44); MEAN CORPUSCULAR HEMOGLOBIN 28 PG (25-34); MEAN CORPUSCULAR HGB CONC 34 G/DL (32-36); MEAN CORPUSCULAR VOLUME 83 FL (80-99); MEAN PLATELET VOLUME 11.5 FL (7.4-10.4); MONOCYTES # (AUTO) 1.7 X 10^3 (0.0-1.0); MONOCYTES % (AUTO) 15 % (0-12); NEUTROPHILS # (AUTO) 8.8 X 10^3 (1.8-7.8); NEUTROPHILS % (AUTO) 75 % (42-75); PLATELET COUNT 103 10^3/uL (130-400); RED BLOOD COUNT 6.33 10^6/uL (4.35-5.85); RED CELL DISTRIBUTION WIDTH 22.3 % (10.0-14.5); WHITE BLOOD COUNT 11.7 10^3/uL (4.3-11.0)
[2016-10-21 20:17] LABS: INR 2.7 (0.8-1.4); PROTHROMBIN TIME PATIENT 28.1 SEC (12.2-14.7)
[2016-10-21] MEDS ORDERED: RX-OSELTAMIVIR 75 MG (TAMIFLU) BOX OF 10 PO STA (20:33)
--- NOTE | 2016-10-21 20:35 | Diagnostic Imaging Report ---
INDICATION: Weakness. COMPARISON: 09/06/2016 FINDINGS: Frontal and lateral radiographic views of the chest were obtained. There is persistent mild cardiomegaly. Pulmonary vasculature is improved. There is also improved appearance to the pulmonary interstitium. No large effusion is seen on the right on today's exam. There is trace residual left effusion with asymmetric elevation left hemidiaphragm and residual patchy opacities within the left lung base. No pneumothorax is seen on either side. Left-sided AICD and sternotomy wires are noted. Bony structures show no gross acute abnormalities. IMPRESSION: 1. Overall, improved appearance to the chest. There is residual small left basilar effusion with some associated atelectasis and/or infiltrate. Dictated by: Dictated on workstation # [id number]
[2016-10-21 20:37] LABS: ALANINE AMINOTRANSFERASE 932 U/L (0-55); ALBUMIN 3.7 G/DL (3.2-4.5); ANION GAP 15 MMOL/L (5-14); ASPARTATE AMINO TRANSFERASE 627 U/L (5-34); BILIRUBIN,TOTAL 2.8 MG/DL (0.1-1.0); BLOOD UREA NITROGEN 32 MG/DL (7-18); BUN/CREATININE RATIO 28; CALCIUM 8.6 MG/DL (8.5-10.1); CARBON DIOXIDE 23 MMOL/L (21-32); CHLORIDE 94 MMOL/L (98-107); CREATININE SERUM 1.13 MG/DL (0.60-1.30); GFR ESTIMATED > 60; GLUCOSE 155 MG/DL (70-105); POTASSIUM 4.5 MMOL/L (3.6-5.0); SODIUM 132 MMOL/L (135-145); TOTAL PROTEIN 7.3 G/DL (6.4-8.2)
[2016-10-21] MEDS ORDERED: ONDANSETRON 4 MG/2 ML (SDV) Z0FRAN IVP ONE (20:45)
[2016-10-21] MEDS ORDERED: PIPERACILLIN SODIUM/TAZOBACTAM 4.5 GM in NS (IVPB) 100 ML IV ONE (20:45)
[2016-10-21 21:09] LABS: hs C REACTIVE PROTEIN 7.41 MG/DL (0.00-0.50)
--- NOTE | 2016-10-21 21:51 | ED General ---
General Chief Complaint: Respiratory Problems Stated Complaint: SOA, CONGESTION Nursing Triage Note: C/O PRODUCTIVE COUGH, WEAKNESS AND SOA X 1 WEEK. DENIES FEVER Nursing Sepsis Screen: No Definite Risk Source of Information: Patient, Family, Old Records Exam Limitations: No Limitations History of Present Illness Time Seen by Provider: 19:46 Initial Comments This pleasant 76-year-old gentleman presents to the emergency room with complaints of chest rattling, cough, headache, sore throat, nausea, weakness, and loss of appetite for about one week. He denies fever. He also has developed some recent lower extremity edema and some gradual weight gain over the past couple of days. Prior to his cardiac interventions, he had marked edema and lost greater than 20 pounds of water weight during treatment. He has multiple chronic problems including diabetes, atrial fibrillation and cardiomyopathy with congestive heart failure. On September 13 he had an ablation for treatment of atrial fibrillation as well as an upgrade on his pacemaker/ defibrillator. An echocardiogram in his chart from April 2016 demonstrates an EF of 20 percent. He also has significant valvular disease. His primary care provider is Kyle Roper. His associate teacher is Dr. Montes De Oca. Breath sounds are very wet and course even without auscultation. Allergies and Home Medications Allergies Coded Allergies: No Known Drug Allergies (Unverified , 04/17/15) Home Medications Allopurinol 100 Mg Tablet #90 (Reported) Apixaban 5 Mg Tablet 5 MG PO BID (Reported) Aspirin 81 Mg Tablet.dr 81 MG PO HS (Reported) Atorvastatin Calcium 10 Mg Tablet 10 MG PO DAILY (Reported) Benazepril HCl 40 Mg Tab 40 MG PO DAILY (Reported) Cod Liver Oil 1 Each Capsule 1 CAP PO HS (Reported) Digoxin 250 Mcg Tablet 250 MCG PO DAILY (Reported) Furosemide 40 Mg Tablet 40 MG PO DAILY (Reported) Garlic 1 Each Capsule 1 CAP PO DAILY (Reported) Glyburide 5 Mg Tablet 2.5 MG PO DAILY (Reported) TAKES 1/2 (5MG) TABLET Metformin HCl 500 Mg Tab.er.24h 500 MG PO DAILY (Reported) Metoprolol Succinate 50 Mg Tab.er.24h 100 MG PO DAILY (Reported) TAKES 2 (50MG) TABLETS Metoprolol Succinate 25 Mg Tab.er.24h #30 25 MG PO HS Prescribed by: EDEL CHUN on 02/08/16 0941 Sacubitril/Valsartan 1 Each Tablet #60 (Reported) Constitutional: see HPI EENTM: see HPI Respiratory: see HPI Cardiovascular: see HPI Gastrointestinal: nausea Genitourinary: no symptoms reported Musculoskeletal: no symptoms reported Skin: no symptoms reported Psychiatric/Neurological: No Symptoms Reported Hematologic/Lymphatic: No Symptoms Reported Past Ggvrxvg-Tquvoi-Kcjkah Hx Patient Social History Alcohol Use: Denies Use Recreational Drug Use: No Smoking Status: Former Smoker Former Smoker/When Quit: Recent Foreign Travel: No Contact w/Someone Who Travel: No Recent Infectious Disease Expo: No Recent Hopitalizations: No Surgeries HX Surgeries: Yes (PACEMAKER) Surgeries: Cardiac (ablation for treatment of atrial fibrillation), CABG, Defibrillator, Pacemaker Respiratory Hx Respiratory Disorders: No Cardiovascular Hx Cardiac Disorders: Yes (CABG/ATRIAL FLUTTER, congestive heart failure) Cardiac Disorders: Atrial Fibrillation, Cardiomyopathy, Coronary Artery Disease , Hypertension, Valvular Heart Disease Neurological Hx Neurological Disorders: No Reproductive System Hx Reproductive Disorders: No Genitourinary Hx Genitourinary Disorders: No Gastrointestinal Hx Gastrointestinal Disorders: No Musculoskeletal Hx Musculoskeletal Disorders: No Endocrine Hx Endocrine Disorders: Yes Endocrine Disorders: Diabetes, Non-Insulin dep HEENT HX ENT Disorders: No Cancer Hx Cancer: No Psychosocial Hx Psychiatric Problems: No Integumentary HX Skin/Integumentary Disorder: No Blood Transfusions Hx Blood Disorders: No Physical Exam Vital Signs Vital Sign - Last 12Hours 10/21/16 10/21/16 19:41 20:03 Temp 98.4 Pulse 69 Resp 22 B/P 118/78 Pulse Ox 94 O2 Delivery Room Air O2 Flow Rate 2 Capillary Refill : Less Than 3 Seconds General Appearance: WD/WN Moderate Distress HEENT: PERRL/EOMI Normal ENT Inspection Other (mouth is red from eating Jell-O ) Neck: Normal Inspection Respiratory: No Accessory Muscle Use No Respiratory Distress Rhonci Other ( very coarse and gurgly breath sounds throughout) Cardiovascular: Regular Rate, Rhythm No Edema No Murmur Gastrointestinal: Normal Bowel Sounds Non Tender Soft Extremity: Non Tender Pedal Edema (mild to moderate lower leg pitting edema bilaterally) Swelling Neurologic/Psychiatric: Alert Oriented x3 No Motor/Sensory Deficits Normal Mood/Affect aligning checker II-XII Norm as Tested Other (generalized weakness) Skin: Normal Color Warm/Dry Progress/Results/Core Measures Results/Orders Lab Results Laboratory Tests Test 10/21/16 19:50 10/21/16 21:39 10/21/16 22:39 10/22/16 00:20 Range/Units Activated Partial Thromboplast Time 44 H 44 H 24-35 SEC Alanine Aminotransferase (ALT/SGPT) 932 H 715 H 0-55 U/L Albumin 3.7 3.0 L 3.2-4.5 G/DL Alkaline Phosphatase 138 H 106 40-136 U/L Anion Gap 15 H 13 5-14 MMOL/L Aspartate Amino Transf (AST/SGOT) 627 H 445 H 5-34 U/L B-Type Natriuretic Peptide 3535.4 H <100.0 PG/ML BUN/Creatinine Ratio 28 31 Basophils # (Auto) 0.0 0.0-0.1 10^3/uL Basophils (%) (Auto) 0 0-10 % Blood Urea Nitrogen 32 H 33 H 7-18 MG/DL C-Reactive Protein High Sensitivity 7.41 H 0.00-0.50 MG/DL Calcium Level 8.6 7.8 L 8.5-10.1 MG/DL Carbon Dioxide Level 23 25 21-32 MMOL/L Chloride Level 94 L 94 L 98-107 MMOL/L Creatinine 1.13 1.05 0.60-1.30 MG/DL Digoxin Level < 0.30 L 0.80-2.00 NG/ML Eosinophils # (Auto) 0.0 0.0-0.3 10^3/uL Eosinophils (%) (Auto) 0 0-10 % Estimat Glomerular Filtration Rate > 60 > 60 Glucose Level 155 H 135 H 70-105 MG/DL Hematocrit 52 47 40-54 % Hemoglobin 17.9 H 16.2 13.3-17.7 G/DL INR Comment 2.7 H 2.7 H 0.8-1.4 Lactate Dehydrogenase 428 H 125-220 U/L Lactic Acid Level 3.4 *H 3.1 *H 2.6 *H 0.5-2.0 MMOL/L Lipase 24 8-78 U/L Lymphocytes # (Auto) 1.2 1.0-4.0 X 10^3 Lymphocytes (%) (Auto) 10 L 12-44 % Mean Corpuscular Hemoglobin 28 28 25-34 PG Mean Corpuscular Hemoglobin Concent 34 34 32-36 G/DL Mean Corpuscular Volume 83 83 80-99 FL Mean Platelet Volume 11.5 H 7.4-10.4 FL Monocytes # (Auto) 1.7 H 0.0-1.0 X 10^3 Monocytes (%) (Auto) 15 H 0-12 % Neutrophils # (Auto) 8.8 H 1.8-7.8 X 10^3 Neutrophils (%) (Auto) 75 42-75 % Platelet Count 103 L 87 L 130-400 10^3/uL Potassium Level 4.5 3.8 3.6-5.0 MMOL/L Prothrombin Time 28.1 H 28.9 H 12.2-14.7 SEC Red Blood Count 6.33 H 5.71 4.35-5.85 10^6/uL Red Cell Distribution Width 22.3 H 21.8 H 10.0-14.5 % Sodium Level 132 L 132 L 135-145 MMOL/L Total Bilirubin 2.8 H 2.4 H 0.1-1.0 MG/DL Total Protein 7.3 5.9 L 6.4-8.2 G/DL Troponin I < 0.30 <0.30 NG/ML White Blood Count 11.7 H 10.0 4.3-11.0 10^3/uL Urine Bacteria MODERATE H /HPF Urine Bilirubin NEGATIVE NEGATIVE Urine Casts PRESENT /LPF Urine Clarity SLIGHTLY CLOUDY Urine Color YELLOW Urine Crystals NONE /LPF Urine Culture Indicated YES Urine Glucose (UA) NEGATIVE NEGATIVE Urine Granular Casts 0-2 H /LPF Urine Hyaline Casts RARE /LPF Urine Ketones NEGATIVE NEGATIVE Urine Leukocyte Esterase NEGATIVE NEGATIVE Urine Mucus NEGATIVE /LPF Urine Nitrite NEGATIVE NEGATIVE Urine Protein 3+ H NEGATIVE Urine RBC NONE /HPF Urine RBC (Auto) 1+ H NEGATIVE Urine Specific Maxwell 1.020 1.016-1.022 Urine Squamous Epithelial Cells 0-2 /HPF Urine Urobilinogen 4 H NORMAL MG/DL Urine WBC 0-2 /HPF Urine White Blood Cell Casts 0-2 H /LPF Urine pH 5 5-9 Test 10/22/16 02:10 10/22/16 03:37 Range/Units Lactic Acid Level 2.2 *H 0.5-2.0 MMOL/L Alanine Aminotransferase (ALT/SGPT) 650 H 0-55 U/L Albumin 2.9 L 3.2-4.5 G/DL Alkaline Phosphatase 100 40-136 U/L Anion Gap 14 5-14 MMOL/L Aspartate Amino Transf (AST/SGOT) 387 H 5-34 U/L BUN/Creatinine Ratio 32 Basophils # (Auto) 0.0 0.0-0.1 10^3/uL Basophils (%) (Auto) 0 0-10 % Blood Urea Nitrogen 30 H 7-18 MG/DL Calcium Level 7.7 L 8.5-10.1 MG/DL Carbon Dioxide Level 25 21-32 MMOL/L Chloride Level 96 L 98-107 MMOL/L Creatinine 0.93 0.60-1.30 MG/DL Eosinophils # (Auto) 0.0 0.0-0.3 10^3/uL Eosinophils (%) (Auto) 0 0-10 % Estimat Glomerular Filtration Rate > 60 Glucose Level 99 70-105 MG/DL Hematocrit 47 40-54 % Hemoglobin 15.9 13.3-17.7 G/DL INR Comment 2.8 H 0.8-1.4 Lymphocytes # (Auto) 1.3 1.0-4.0 X 10^3 Lymphocytes (%) (Auto) 13 12-44 % Magnesium Level 1.7 L 1.8-2.4 MG/DL Mean Corpuscular Hemoglobin 28 25-34 PG Mean Corpuscular Hemoglobin Concent 34 32-36 G/DL Mean Corpuscular Volume 83 80-99 FL Mean Platelet Volume 11.5 H 7.4-10.4 FL Monocytes # (Auto) 1.1 H 0.0-1.0 X 10^3 Monocytes (%) (Auto) 11 0-12 % Neutrophils # (Auto) 7.6 1.8-7.8 X 10^3 Neutrophils (%) (Auto) 76 H 42-75 % Phosphorus Level 2.9 2.3-4.7 MG/DL Platelet Count 91 L 130-400 10^3/uL Potassium Level 3.6 3.6-5.0 MMOL/L Prothrombin Time 29.0 H 12.2-14.7 SEC Red Blood Count 5.64 4.35-5.85 10^6/uL Red Cell Distribution Width 21.6 H 10.0-14.5 % Sodium Level 135 135-145 MMOL/L Total Bilirubin 2.4 H 0.1-1.0 MG/DL Total Protein 5.7 L 6.4-8.2 G/DL White Blood Count 10.0 4.3-11.0 10^3/uL Micro Results Microbiology 10/21/16 Influenza Types A,B Antigen ([place]) - Final, Complete My Orders Orders-BIJAL FERNANDEZ MD Cbc With Automated Diff (10/21/16 19:41) Comprehensive Metabolic Panel (10/21/16 19:41) Lactic Acid Analyzer (10/21/16 19:41) Blood Culture (10/21/16 19:41) Sputum Culture (10/21/16:41) Ua Culture If Indicated (10/21/16:41) Protime With Inr (10/21/16:41) Partial Thromboplastin Time (10/21/16 19:41) O2 (10/21/16:41) Saline Lock/Iv-Start (10/21/16:41) Saline Lock/Iv-Start (10/21/16 19:41) Vital Signs Adult Sepsis Patie Q1HR (10/21/16 19:41) Remove Rings In Anticipation O (10/21/16 19:41) Influenza A And B Antigens (10/21/16:41) Chest Pa/Lat (2 View) (10/21/16 19:41) Albuterol/Ipra Inhalation Soln (Duoneb I (10/21/16 20:00) BNP (10/21/16 20:00) Troponin I (10/21/16 20:00) Svn Sm Volume Nebulizer Rt-Rfs (10/21/16 20:00) Ekg Tracing (10/21/16 20:00) Monitor-Rhythm Ecg Trace Only (10/21/16 20:00) Rx-Oseltamivir Caps (Rx-Tamiflu Caps) (10/21/16 20:33) Ondansetron Injection (Zofran Injectio (10/21/16 20:45) Hs C Reactive Protein (10/21/16 20:45) Lipase (10/21/16 20:45) Piperacillin Sodium/Tazobactam (Zosyn Vi (10/21/16 20:45) Digoxin (10/21/16 21:15) Furosemide Injection (Lasix Injection) (10/21/16 22:00) Urine Culture (10/21/16 22:39) Medications Given in ED Current Medications Medications Dose Ordered Sig/Kat Route Start Time Stop Time Status Last Admin Dose Admin Albuterol/ Ipratropium 3 ml ONCE ONCE INH 10/21/16 20:00 10/21/16 20:03 DC 10/21/16 20:24 3 ML Furosemide 80 mg ONCE ONCE IVP 10/21/16 22:00 10/21/16 22:01 DC 10/21/16 22:08 80 MG Ondansetron HCl 8 mg 8 mg ONCE ONCE IVP 10/21/16 20:45 10/21/16 20:47 DC 10/21/16 20:51 8 MG Piperacillin Sod/ Tazobactam Sod/ Sodium Chloride 100 ml @ 200 mls/hr ONCE ONCE IV 10/21/16 20:45 10/21/16 21:14 DC 10/21/16 20:52 200 MLS/HR Vital Signs/I&O Vital Sign - Last 12Hours 10/21/16 10/21/16 10/21/16 10/21/16 19:41 20:03 20:20 20:36 Temp 98.4 100.1 Pulse 69 84 Resp B/P 118/78 126/81 Pulse Ox 94 95 96 98 O2 Delivery Room Air Nasal Cannula Nasal Cannula O2 Flow Rate 2 2 2 10/21/16 10/21/16 10/21/16 10/21/16 21:53 22:45 23:00 23:00 Temp 99.4 99.9 99.9 Pulse 81 80 80 Resp 19 B/P 120/69 115/69 115/69 Pulse Ox 97 93 93 93 O2 Delivery Nasal Cannula Nasal Cannula Nasal Cannula O2 Flow Rate 2 2.00 2.00 10/21/16 10/21/16 10/22/16 10/22/16 23:07 23:18 00:00 00:00 Temp 99.9 99.9 Pulse 80 80 80 Resp 24 B/P 108/65 108/65 Pulse Ox 94 95 95 O2 Delivery Nasal Cannula Nasal Cannula O2 Flow Rate 2.00 2.00 2.00 10/22/16 10/22/16 10/22/16 10/22/16 00:30 01:00 01:00 02:00 Pulse 80 80 80 Resp 26 B/P 97/63 92/57 Pulse Ox 95 95 94 O2 Delivery Nasal Cannula Nasal Cannula O2 Flow Rate 2.00 2.00 2.00 10/22/16 10/22/16 10/22/16 10/22/16 03:00 04:00 04:00 04:00 Temp 99.2 Pulse 80 80 Resp 26 27 B/P 102/66 94/65 Pulse Ox 93 93 92 O2 Delivery Nasal Cannula Nasal Cannula O2 Flow Rate 2.00 2.00 2.00 10/22/16 10/22/16 05:00 06:00 Pulse 80 80 Resp 25 23 B/P 98/67 98/64 Pulse Ox 94 93 O2 Delivery Nasal Cannula Nasal Cannula O2 Flow Rate 2.00 2.00 Intake and Output 10/22/16 00:00 Intake Total 100 ml Balance 100 ml Blood Pressure Mean: 96 Progress Note : Progress Note Pneumonia and sepsis were suspected on initial assessment. Influenza screen was obtained and was positive. Patient was started on Tamiflu. Congestive heart failure was also suspected given his recent reaccumulation of fluid and the very wet breath sounds. BNP was markedly elevated but there was no congestion visible on the chest x-ray. Pneumonia was questionable as there was some subtle infiltrate possible in the left lower lung. As a precaution, he was started on broad-spectrum antibiotic therapy. Case was reviewed with Dr. Roper, Dr. Felix, and Dr. Montes De Oca. Fluid status was considered carefully. Given the wet sounds on physical exam and recent fluid accumulation, it was determined Lasix should be given. Fluid resuscitation can be administered in the ICU if response to Lasix is not as anticipated. Patient was noted to have markedly elevated transaminases which is new according to his lab trends in the record. He also has a new thrombocytopenia. Cause is uncertain at this time. An ultrasound of the liver and gallbladder will be performed in the morning. Medications are being held at this time as none were deemed necessary. INR is 2.[address] Montes De Oca cautioned against using any further anticoagulation in the setting of his liver function abnormalities. ECG Initial ECG Impression Date: Oct 21, 2016 Initial ECG Impression Time: 19:46 Initial ECG Rate: 85 Comment Atrial sensed ventricular paced complexes consistent with patient's pacemaker. No acute ST elevation appreciated. Diagnostic Imaging Diagonstic Imaging: Xray Plain Films/CT/US/NM/MRI: chest Comments Chest x-ray viewed by me and report reviewed. See report below: NAME: MICHAELA ROPER [facility] REC#: [id number] PT STATUS: REG ER : 1940 PHYSICIAN: BIJAL FERNANDEZ MD ADMIT DATE: 10/21/16/ER Draft Date of Exam:10/21/16 CHEST PA/LAT (2 VIEW) INDICATION: Weakness. COMPARISON: 09/06/2016 FINDINGS: Frontal and lateral radiographic views of the chest were obtained. There is persistent mild cardiomegaly. Pulmonary vasculature is improved. There is also improved appearance to the pulmonary interstitium. No large effusion is seen on the right on today's exam. There is trace residual left effusion with asymmetric elevation left hemidiaphragm and residual patchy opacities within the left lung base. No pneumothorax is seen on either side. Left-sided AICD and sternotomy wires are noted. Bony structures show no gross acute abnormalities. IMPRESSION: 1. Overall, improved appearance to the chest. There is residual small left basilar effusion with some associated atelectasis and/or infiltrate. Dictated on workstation # [id number] Dict: 10/21/162030 Trans: 10/21/162033 [facility] [id number] Interpreted by: DEVONTE CHRISTIAN Electronically signed by: Departure Impression Impression: Primary Impression: Influenza A Additional Impressions: Sepsis Qualified Code: A41.9 - Sepsis, unspecified organism Left lower lobe pneumonia Qualified Code: J18.1 - Lobar pneumonia, unspecified organism Elevated liver enzymes Thrombocytopenia Cardiomyopathy Qualified Code: I42.9 - Cardiomyopathy, unspecified Fluid overload Qualified Code: E87.70 - Fluid overload, unspecified Disposition: 09 ADMITTED INPATIENT Condition: Improved Departure-Patient Inst. Referrals: KYLE ROPER DO (PCP/Family) Primary Care Physician BIJAL FERNANDEZ MD Oct 21, 2016 21:51
[2016-10-21] MEDS ORDERED: FUROSEMIDE 40 MG/4 ML INJ (LASIX) IVP ONE (22:00)
[2016-10-21 22:44] LABS: BILIRUBIN,URINE NEGATIVE (NEGATIVE); KETONES,URINE NEGATIVE (NEGATIVE); LEUKOCYTE ESTERASE ,URINE NEGATIVE (NEGATIVE); NITRITE,URINE NEGATIVE (NEGATIVE); PH,URINE 5 (5-9); PROTEIN,URINE 3+ (NEGATIVE); UROBILINOGEN,URINE 4 MG/DL (NORMAL)
[2016-10-21 22:53] LABS: GRANULAR CASTS,URINE 0-2 /LPF; HYALINE CASTS, URINE RARE /LPF; SQUAMOUS EPITHELIAL CELL,UR 0-2 /HPF; WBC,URINE 0-2 /HPF
[2016-10-21 22:54] LABS: WHITE BLOOD CELL CASTS, URINE 0-2 /LPF
[2016-10-21 23:00] VITALS: BP 115/69
[2016-10-21] MEDS ORDERED: VANCOMYCIN 1 GM/NS 250 ML IVPB IV SCH ×2 (23:00)
[2016-10-21] MEDS ORDERED: CATHETER FLUSH 10 ML SYR IV PRN (23:00)
[2016-10-21] MEDS ORDERED: ONDANSETRON 4 MG/2 ML (SDV) Z0FRAN IV PRN (23:00)
[2016-10-21] MEDS: LEVOFLOXACIN 750 MG/D5W 150 ML PRE-MIX IV SCH (23:16)
[2016-10-21] MEDS ORDERED: RT-ALBUTEROL SULF 2.5 MG/3 ML PRE-MIX VIAL INH PRN (23:30)
[2016-10-22] VITALS (22 sets, daily range): BP systolic 89–118; BP diastolic 54–77
[2016-10-22 00:41] LABS: MEAN CORPUSCULAR HEMOGLOBIN 28 PG (25-34); MEAN CORPUSCULAR HGB CONC 34 G/DL (32-36); MEAN CORPUSCULAR VOLUME 83 FL (80-99); PLATELET COUNT 87 10^3/uL (130-400); RED BLOOD COUNT 5.71 10^6/uL (4.35-5.85); RED CELL DISTRIBUTION WIDTH 21.8 % (10.0-14.5)
[2016-10-22 00:51] LABS: INR 2.7 (0.8-1.4); PROTHROMBIN TIME PATIENT 28.9 SEC (12.2-14.7)
[2016-10-22 01:02] LABS: ALANINE AMINOTRANSFERASE 715 U/L (0-55); ANION GAP 13 MMOL/L (5-14); ASPARTATE AMINO TRANSFERASE 445 U/L (5-34); BILIRUBIN,TOTAL 2.4 MG/DL (0.1-1.0); BLOOD UREA NITROGEN 33 MG/DL (7-18); BUN/CREATININE RATIO 31; CALCIUM 7.8 MG/DL (8.5-10.1); CARBON DIOXIDE 25 MMOL/L (21-32); CHLORIDE 94 MMOL/L (98-107); CREATININE SERUM 1.05 MG/DL (0.60-1.30); GFR ESTIMATED > 60; GLUCOSE 135 MG/DL (70-105); POTASSIUM 3.8 MMOL/L (3.6-5.0); SODIUM 132 MMOL/L (135-145); TOTAL PROTEIN 5.9 G/DL (6.4-8.2)
[2016-10-22] MEDS: CATHETER FLUSH 10 ML SYR IV SCH ×3 (02:44→19:50)
[2016-10-22] MEDS: PIPERACILLIN/TAZOBACTAM 4.5 GM/NS100 ML IVPB IV SCH ×6 (02:44→19:50)
[2016-10-22 04:09] LABS: BASOPHILS % (AUTO) 0 % (0-10); EOSINOPHILS % (AUTO) 0 % (0-10); LYMPHOCYTES # (AUTO) 1.3 X 10^3 (1.0-4.0); LYMPHOCYTES % (AUTO) 13 % (12-44); MEAN CORPUSCULAR HEMOGLOBIN 28 PG (25-34); MEAN CORPUSCULAR HGB CONC 34 G/DL (32-36); MEAN CORPUSCULAR VOLUME 83 FL (80-99); MEAN PLATELET VOLUME 11.5 FL (7.4-10.4); MONOCYTES # (AUTO) 1.1 X 10^3 (0.0-1.0); MONOCYTES % (AUTO) 11 % (0-12); NEUTROPHILS # (AUTO) 7.6 X 10^3 (1.8-7.8); NEUTROPHILS % (AUTO) 76 % (42-75); PLATELET COUNT 91 10^3/uL (130-400); RED BLOOD COUNT 5.64 10^6/uL (4.35-5.85); RED CELL DISTRIBUTION WIDTH 21.6 % (10.0-14.5)
[2016-10-22 04:18] LABS: INR 2.8 (0.8-1.4)
[2016-10-22 04:36] LABS: ALANINE AMINOTRANSFERASE 650 U/L (0-55); ALBUMIN 2.9 G/DL (3.2-4.5); ANION GAP 14 MMOL/L (5-14); ASPARTATE AMINO TRANSFERASE 387 U/L (5-34); BILIRUBIN,TOTAL 2.4 MG/DL (0.1-1.0); BLOOD UREA NITROGEN 30 MG/DL (7-18); BUN/CREATININE RATIO 32; CALCIUM 7.7 MG/DL (8.5-10.1); CARBON DIOXIDE 25 MMOL/L (21-32); CHLORIDE 96 MMOL/L (98-107); CREATININE SERUM 0.93 MG/DL (0.60-1.30); GFR ESTIMATED > 60; GLUCOSE 99 MG/DL (70-105); MAGNESIUM 1.7 MG/DL (1.8-2.4); PHOSPHORUS 2.9 MG/DL (2.3-4.7); POTASSIUM 3.6 MMOL/L (3.6-5.0); SODIUM 135 MMOL/L (135-145); TOTAL PROTEIN 5.7 G/DL (6.4-8.2)
[2016-10-22] MEDS: RT-ALBUTEROL SULF 2.5 MG/3 ML PRE-MIX VIAL INH SCH ×4 (07:11→18:45)
[2016-10-22] MEDS ORDERED: FLU TRIvalent (5 YOA+) 2016-17 (AFLURIA) 0.5 ML IM ONE (07:30)
[2016-10-22] MEDS ORDERED: VANCOMYCIN INJECTION 1,250 MG in NS (IVPB) 250 ML IV SCH (08:00)
--- NOTE | 2016-10-22 08:00 | Diagnostic Imaging Report ---
INDICATION: Dyspnea, followup pneumonia. DISCUSSION: Single portable upright view of the chest was obtained, comparison 10/21/2016. Borderline cardiomegaly is stable. Median sternotomy and left-sided pacemaker are again noted. Elevated left hemidiaphragm is stable. Suspect small left pleural effusion. The right lung is well-aerated. IMPRESSION: 1. Suspect small left pleural effusion. Dictated by: Dictated on workstation # [id number]
--- NOTE | 2016-10-22 08:35 | Diagnostic Imaging Report ---
PROCEDURE: US Gallbladder. TECHNIQUE: Multiple real-time grayscale images were obtained over the right upper quadrant in various projections. Indication: Abnormal liver function test, sepsis. Comparison: None. Discussion: Sonographic evaluation of the right upper quadrant was performed. The liver appears normal in echotexture and size. No hepatic mass identified. The gallbladder appears normal without evidence of cholelithiasis, wall thickening, or pericholecystic fluid. No evidence of biliary duct dilatation. The common bile duct is normal measuring 0.4 cm. The pancreas is obscured due to overlying bowel gas. The right kidney appears normal in echotexture and size without evidence of hydronephrosis or renal mass. The right kidney measures 13.9 cm. Trace perihepatic ascites is present. No drainable fluid identified. No sonographic Stein sign was reported. Impression: 1. Trace perihepatic ascites. Dictated by: Dictated on workstation # [id number]
--- NOTE | 2016-10-22 09:01 | Consultation-Cardiology ---
HPI-Cardiology Cardiology Consultation: Date of Consultation 10/22/16 Date of Admission 10-21-16 Attending Physician Eduar Paula MD Admitting Physician Nidhi Roper DO Consulting Physician Bolivar Montes De Oca MD HPI: Chief Complaint: CHF Mr. Roper is a 76 year old male admitted to ICU 9 from the ED. He reports increasing weakness, shortness of breath and non-productive cough over the course of the last few days. No reports of fever, chills. He does report nausea. No report of vomiting or diarrhea. He reports he feels somewhat better , but continues to feel weak and short of breath. No c/o CP, palpitations, syncope or near syncope. Review of Systems-Cardiology Review of Systems Constitutional: As described under HPI Eyes: No blurred vision, No drainage, No pain, No vision change Ears/Nose/Throat: No ear discharge, No ear pain, No nasal drainage, No ulcerations Respiratory: As described under HPI Cardiovascular: As described under HPI Gastrointestinal: No constipation, No diarrhea, nauseaNo vomiting, No stool coloration changes Genitourinary: No dysuria, No discharge, No frequency, No hematuria, No urgency Skin: No rash, No skin related problems, No ulcerations Psychiatric/Neurological: No anxiety, No depression, No focal weakness, No seizure, No syncope Hematologic: No bleeding abnormalities FZC-Svaios-Ipodqb Hx Patient Social History Alcohol Use: Denies Use Recreational Drug Use: No Smoking Status: Former Smoker Former smoker/When Quit: Recent Foreign Travel: No Recent Infectious Disease Expo: No Hospitalization with Isolation: Denies Physical Abuse Screen: No Sexual Abuse: No Past Medical History PMH As described under Assessment. Family Medical History Family Medical History: No fam history of early CAD Allergies and Home Medications Allergies Coded Allergies: No Known Drug Allergies (Unverified , 04/17/15) Home Medications Allopurinol 100 Mg Tablet 100 MG PO DAILY (Reported) Amiodarone HCl 200 Mg Tablet 200 MG PO DAILY (Reported) Apixaban 5 Mg Tablet 5 MG PO BID (Reported) Aspirin 81 Mg Tablet.dr 81 MG PO HS (Reported) Cod Liver Oil 1 Each Capsule 1 CAP PO DAILY (Reported) Furosemide 40 Mg Tablet 40 MG PO BID (Reported) Garlic 1 Each Capsule 1 CAP PO DAILY (Reported) Glyburide 5 Mg Tablet 2.5 MG PO DAILY (Reported) TAKES 1/2 (5MG) TABLET Metoprolol Succinate 50 Mg Tab.er.24h 50 MG PO DAILY (Reported) Metoprolol Succinate 25 Mg Tab.er.24h 25 MG PO HS (Reported) Sacubitril/Valsartan 1 Each Tablet 1 TAB PO BID (Reported) Physical Exam-Cardiology Physical Exam Vital Signs/I&O Vital Sign - Last 12Hours 10/22/16 10/22/16 10/22/16 10/22/16 02:00 03:00 04:00 04:00 Pulse 80 80 80 Resp 26 26 27 B/P 92/57 102/66 94/65 Pulse Ox 94 93 93 92 O2 Delivery Nasal Cannula Nasal Cannula Nasal Cannula O2 Flow Rate 2.00 2.00 2.00 2.00 10/22/16 10/22/16 10/22/16 10/22/16 04:00 05:00 06:00 07:00 Temp 99.2 Pulse 80 80 80 Resp 25 23 B/P 98/67 98/64 Pulse Ox 94 93 O2 Delivery Nasal Cannula Nasal Cannula O2 Flow Rate 2.00 2.00 10/22/16 10/22/16 10/22/16 10/22/16 07:00 07:11 08:00 09:00 Pulse 80 80 80 Resp 24 24 26 B/P 93/64 101/64 92/59 Pulse Ox 94 94 92 92 O2 Delivery Nasal Cannula Nasal Cannula Nasal Cannula O2 Flow Rate 2.00 1.00 2.00 2.00 10/22/16 10/22/16 10:00 11:08 Pulse 80 Resp 23 B/P 95/60 Pulse Ox 95 94 O2 Delivery Nasal Cannula O2 Flow Rate 2.00 2.00 Intake and Output 10/22/16 00:00 Intake Total 100 ml Output Total 250 ml Balance -150 ml Capillary Refill : Less Than 3 Seconds Constitutional: appears stated ageNo apparent distress, well-developed well- nourished HEENT: PERRLNo discharge, hearing is well preserved oral hygience is goodNo ulceration, No xanthelasmas are seen Neck: No carotid bruit, carotid pulses are 2 + bilaterally Respiratory: other (good air entry, poor inspiratory effort) Cardiovascular: regular rate-rhythmNo JVD, S1 and S2 systolic murmur Gastrointestinal: No tender, soft roundNo spleenomegaly Extremities: No clubbing, No cyanosis, significant edema (mild bilat LE edema) Neurologic/Psychiatric: alert oriented x 3 power is 5/5 both on sides Skin: No rash, No ulcerations Data Review Labs Laboratory Tests 10/21/16 19:50: Activated Partial Thromboplast Time 44H, Alanine Aminotransferase (ALT/SGPT) 932H, Albumin 3.7, Alkaline Phosphatase 138H, Anion Gap 15H, Aspartate Amino Transf (AST/SGOT) 627H, B-Type Natriuretic Peptide 3535.4H, BUN/Creatinine Ratio 28, Basophils # (Auto) 0.0, Basophils (%) (Auto) 0, Blood Urea Nitrogen 32H, C-Reactive Protein High Sensitivity 7.41H, Calcium Level 8.6, Carbon Dioxide Level 23, Chloride Level 94L, Creatinine 1.13, Digoxin Level < 0.30L, Eosinophils # (Auto) 0.0, Eosinophils (%) (Auto) 0, Estimat Glomerular Filtration Rate > 60, Glucose Level 155H, Hematocrit 52, Hemoglobin 17.9H, INR Comment 2.7H, Lactate Dehydrogenase 428H, Lactic Acid Level 3.4*H, Lipase 24, Lymphocytes # (Auto) 1.2, Lymphocytes (%) (Auto) 10L, Mean Corpuscular Hemoglobin 28, Mean Corpuscular Hemoglobin Concent 34, Mean Corpuscular Volume 83, Mean Platelet Volume 11.5H, Monocytes # (Auto) 1.7H, Monocytes (%) (Auto) 15H, Neutrophils # (Auto) 8.8H, Neutrophils (%) (Auto) 75, Platelet Count 103L, Potassium Level 4.5, Prothrombin Time 28.1H, Red Blood Count 6.33H, Red Cell Distribution Width 22.3H, Sodium Level 132L, Total Bilirubin 2.8H, Total Protein 7.3, Troponin I < 0.30, White Blood Count 11.7H 10/21/16 21:39: Lactic Acid Level 3.1*H 10/21/16 22:39: Urine Bacteria MODERATEH, Urine Bilirubin NEGATIVE, Urine Casts PRESENT, Urine Clarity SLIGHTLY CLOUDY, Urine Color YELLOW, Urine Crystals NONE, Urine Culture Indicated YES, Urine Glucose (UA) NEGATIVE, Urine Granular Casts 0-2H, Urine Hyaline Casts RARE, Urine Ketones NEGATIVE, Urine Leukocyte Esterase NEGATIVE, Urine Mucus NEGATIVE, Urine Nitrite NEGATIVE, Urine Protein 3+H, Urine RBC NONE , Urine RBC (Auto) 1+H, Urine Specific [place] 1.020, Urine Squamous Epithelial Cells 0-2, Urine Urobilinogen 4H, Urine WBC 0-2, Urine White Blood Cell Casts 0- 2H, Urine pH 5 10/22/16 00:20: Activated Partial Thromboplast Time 44H, Alanine Aminotransferase (ALT/SGPT) 715H, Albumin 3.0L, Alkaline Phosphatase 106, Anion Gap 13, Aspartate Amino Transf (AST/SGOT) 445H, BUN/Creatinine Ratio 31, Blood Urea Nitrogen 33H, Calcium Level 7.8L, Carbon Dioxide Level 25, Chloride Level 94L, Creatinine 1.05 , Estimat Glomerular Filtration Rate > 60, Glucose Level 135H, Hematocrit 47, Hemoglobin 16.2, INR Comment 2.7H, Lactic Acid Level 2.6*H, Mean Corpuscular Hemoglobin 28, Mean Corpuscular Hemoglobin Concent 34, Mean Corpuscular Volume 83, Mean Platelet Volume , Platelet Count 87L, Potassium Level 3.8, Prothrombin Time 28.9H, Red Blood Count 5.71, Red Cell Distribution Width 21.8H, Sodium Level 132L, Total Bilirubin 2.4H, Total Protein 5.9L, White Blood Count 10.0 10/22/16 02:10: Lactic Acid Level 2.2*H 10/22/16 03:37: Alanine Aminotransferase (ALT/SGPT) 650H, Albumin 2.9L, Alkaline Phosphatase 100 , Anion Gap 14, Aspartate Amino Transf (AST/SGOT) 387H, BUN/Creatinine Ratio 32 , Basophils # (Auto) 0.0, Basophils (%) (Auto) 0, Blood Urea Nitrogen 30H, Calcium Level 7.7L, Carbon Dioxide Level 25, Chloride Level 96L, Creatinine 0.93 , Eosinophils # (Auto) 0.0, Eosinophils (%) (Auto) 0, Estimat Glomerular Filtration Rate > 60, Glucose Level 99, Hematocrit 47, Hemoglobin 15.9, INR Comment 2.8H, Lymphocytes # (Auto) 1.3, Lymphocytes (%) (Auto) 13, Magnesium Level 1.7L, Mean Corpuscular Hemoglobin 28, Mean Corpuscular Hemoglobin Concent 34, Mean Corpuscular Volume 83, Mean Platelet Volume 11.5H, Monocytes # (Auto) 1.1H, Monocytes (%) (Auto) 11, Neutrophils # (Auto) 7.6, Neutrophils (%) (Auto) 76H, Phosphorus Level 2.9, Platelet Count 91L, Potassium Level 3.6, Prothrombin Time 29.0H, Red Blood Count 5.64, Red Cell Distribution Width 21.6H, Sodium Level 135, Total Bilirubin 2.4H, Total Protein 5.7L, White Blood Count 10.0 10/22/16 09:15: Ammonia 44H Microbiology 10/21/16 Influenza Types A,B Antigen ([place]) - Final, Complete Radiology NAME: MICHAELA ROPER [facility] REC#: [id number] PT STATUS: ADM [place] : 1940 PHYSICIAN: EDUAR PAULA MD ADMIT DATE: 10/21/16/ICU Draft Date of Exam:10/22/16 US GALLBLADDER [id number] PROCEDURE: US Gallbladder. TECHNIQUE: Multiple real-time grayscale images were obtained over the right upper quadrant in various projections. Indication: Abnormal liver function test, sepsis. Comparison: None. Discussion: Sonographic evaluation of the right upper quadrant was performed. The liver appears normal in echotexture and size. No hepatic mass identified. The gallbladder appears normal without evidence of cholelithiasis, wall thickening, or pericholecystic fluid. No evidence of biliary duct dilatation. The common bile duct is normal measuring 0.4 cm. The pancreas is obscured due to overlying bowel gas. The right kidney appears normal in echotexture and size without evidence of hydronephrosis or renal mass. The right kidney measures 13.9 cm. Trace perihepatic ascites is present. No drainable fluid identified. No sonographic Stein sign was reported. Impression: 1. Trace perihepatic ascites. Dictated on workstation # [id number] Dict: 10/22/16 0829 Trans: 10/22/16 0834 ERICK [id number] Interpreted by: KUN HUBBARD MD Electronically signed by: NAME: MICHAELA ROPER [facility] REC#: [id number] PT STATUS: ADM IN : 1940 PHYSICIAN: EDUAR PAULA MD ADMIT DATE: 10/21/16/ICU Draft Date of Exam:10/22/16 CHEST 1 VIEW, AP/PA ONLY INDICATION: Dyspnea, followup pneumonia. DISCUSSION: Single portable upright view of the chest was obtained, comparison 10/21/2016. Borderline cardiomegaly is stable. Median sternotomy and left-sided pacemaker are again noted. Elevated left hemidiaphragm is stable. Suspect small left pleural effusion. The right lung is well-aerated. IMPRESSION: 1. Suspect small left pleural effusion. 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 S/p ext elec cardioversion to NSR on 04/19/15. S/P ablation for atrial flutter by Dr. Hernández at [facility] by Dr. Hernández on 06/09/15 Ischemic Cardiomyopathy. LVEF 35-40%, based on TTE and CROW of 04/18 and 04/19/15. LVEF 22% on MPI of 05/19/15. LVEF 33% on MUGA of 05/24/15. LVEF 25% on echo of 08/17 CAD with history of CABGx5 at the [facility] 5-6 years ago. Details of CABG unavailable. MPI of 05/19/15 did not show ischemia or infarction but there was LV enlargement and LVEF was 22% Echocardiogram of April 13, 2016 showed marked impairment of LV systolic function iwth an ejection fraction of 20%. Global ypokinesis of the LV, more marked in the anteroseptal wall. Mod sever MR and TR. Mild to mod mitral anular calcification and aortic valve sclerosis without evidence of significant valvular stenosis. PASP estimated to approx 40mmHg. 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 Acute on chronic systolic CHF we will treat with diuretics. Monitor lab closely. D/ t acute hepatic failure with coagulopathy (INR >2.5) we are holding off on OAC at this time. We will give Lovenox 40mg subcut daily. Monitor lab closely. Sepsis being managed by medical services. We would like to thank Dr. Collins for this consult. Further recommendations will be based on his hospital course. This consult is being scribed by Pepper Mathis APRN on behalf of Dr. Montes De Oca after examination and discussion regarding plan of care. Clinical Quality Measures DVT/VTE Risk/Contraindication: Risk Factor Score Per Nursin RFS Level Per Nursing on Admit: 2=Moderate Physician Assessment Physician Assessment Lungs: good bilat air entry Cor: reg A&R * As documented in our note above that I updated at the time of this writing * Management is complex due to multiple comorbidities * Monitor closely in ICU EDEL MATHIS Oct 22, 2016 09:01 BOLIVAR MONTES DE OCA MD [facility] Oct 22, 2016 13:09 Ischemic Cardiomyopathy. LVEF 35-40%, based on TTE and CROW of 04/18 and 04/19/15. LVEF 22% on MPI of 05/19/15. LVEF 33% on MUGA of 05/24/15. LVEF 25% on echo of 08/17 CAD with history of CABGx5 at the [facility] 5-6 years ago. Details of CABG unavailable. MPI of 05/19/15 did not show ischemia or infarction but there was LV enlargement and LVEF was 22% Echocardiogram of April 13, 2016 showed marked impairment of LV systolic function iwth an ejection fraction of 20%. Global ypokinesis of the LV, more marked in the anteroseptal wall. Mod sever MR and TR. Mild to mod mitral anular calcification and aortic valve sclerosis without evidence of significant valvular stenosis. PASP estimated to approx 40mmHg. 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 Acute on chronic systolic CHF we will treat with diuretics. Monitor lab closely. D/ t acute hepatic failure with coagulopathy (INR >2.5) we are holding off on OAC at this time. We will give Lovenox 40mg subcut daily. Monitor lab closely. Sepsis being managed by medical services. We would like to thank Dr. Collins for this consult. Further recommendations will be based on his hospital course. This consult is being scribed by Pepper Mathis APRN on behalf of Dr. Montes De Oca after examination and discussion regarding plan of care. Clinical Quality Measures DVT/VTE Risk/Contraindication: Risk Factor Score Per Nursin RFS Level Per Nursing on Admit: 2=Moderate EDEL MATHIS Oct 22, 2016 09:01
--- NOTE | 2016-10-22 09:01 | History & Physical-Hospitalist ---
HPI History of Present Illness: HPI/Chief Complaint CC: Fever with cough HPI: This is a 76-year-old white male clinic patient a [facility] with a past medical history of atrial fibrillation on Eliquis and diabetes mellitus the presents to the ICU after admitted due to fever and cough with an acute influenza a diagnosis with possible left lower lobe pneumonia versus effusion. Cardiology has been consulted for atrial fibrillation and he has a long-standing history of suppressed systolic function due to ischemic cardiomyopathy. At this current time patient is mildly tachypneic but not in any respiratory distress but I am according ABG and I did speak to cardiology regarding the need for gentle IV fluids due to elevated lactic acid. Ultrasound of the liver showed mild ascites and that was obtained due to the elevated liver enzymes and he had not been aware of any liver problems before. He denies any heavy alcohol use and he is vague on when he did have alcohol exposure but it appears to be a remote history. Acute viral hepatitis panel is pending at this current time but doesn't have any risk like IV drug abuse or tattoos that would pose any risk for that so unsure the etiology. The coagulopathy is significant indicating significant cirrhosis since his INR is 2.8 and platelet count is decreased. I did narrow the antibiotic spectrum with discontinuation of vancomycin but maintained Levaquin and Zosyn. Source: patient Exam Limitations: no limitations Date Seen 10/22/16 Attending Physician Kaitlin Felix MD PCP Nidhi Roper DO Referring Physician Date of Admission Oct 21, 2016 at 22:14 Home Medications & Allergies Home Medications Reviewed patient Home Medication Reconciliation Form Allergies Coded Allergies: No Known Drug Allergies (Unverified , 04/17/15) Past Tskxwrx-Gosoiu-Vigxup Hx Patient Social History Marrital Status: Employed/Student: retired Alcohol Use: Denies Use Recreational Drug Use: No Smoking Status: Former Smoker Former smoker/When Quit: Physical Abuse Screen: No Sexual Abuse: No Recent Foreign Travel: No Contact w/other who traveled: No Recent Hopitalizations: No Recent Infectious Disease Expo: No Seasonal Allergies Seasonal Allergies: No Surgeries HX Surgeries: Yes (PACEMAKER) Surgeries: Cardiac, CABG, Defibrillator, Pacemaker Respiratory Hx Respiratory Disorders: No Cardiovascular Hx Cardiovascular Disorders: Yes (CABG/ATRIAL FLUTTER, congestive heart failure ) Cardiac Disorders: Atrial Fibrillation, Cardiomyopathy, Coronary Artery Disease , Hypertension, Valvular Heart Disease Neurological Hx Neurological Disorders: No Reproductive System Hx Reproductive Disorders: No Genitourinary Hx Genitourinary Disorders: No Gastrointestinal Hx Gastrointestinal Disorders: No Musculoskeletal Hx Musculoskeletal Disorders: No Endocrine Hx Endocrine Disorders: Yes Endocrine Disorders: Diabetes, Non-Insulin dep HEENT HX ENT Disorders: No Cancer Hx Cancer: No Psychosocial Hx Psychiatric Problems: No Integumentary HX Skin/Integumentary Disorder: No Blood Transfusions Hx Blood Disorders: No Review of Systems Constitutional: see HPI dizziness fever malaise weakness EENTM: no symptoms reported Respiratory: cough dyspnea on exertion short of breath wheezing Cardiovascular: edema Gastrointestinal: no symptoms reported Genitourinary: no symptoms reported Musculoskeletal: no symptoms reported Skin: no symptoms reported Psychiatric/Neurological: No Symptoms Reported All Other Systems Reviewed Negative Unless Noted: Yes Physical Exam Physical Exam Vital Signs Vital Sign - Last 12Hours 10/21/16 10/21/16 19:41 20:03 Temp 98.4 Pulse 69 Resp 22 B/P 118/78 Pulse Ox 94 O2 Delivery Room Air O2 Flow Rate 2 Capillary Refill : Less Than 3 Seconds General Appearance: No Apparent Distress WD/WN Chronically ill Mild Distress ( mild tachypnea) Eyes: Bilateral Eye Normal Inspection, Bilateral Eye PERRL HEENT: PERRL/EOMI Normal ENT Inspection Pharynx Normal Neck: Full Range of Motion Normal Inspection Non Tender Supple Carotid Bruit Respiratory: Chest Non Tender No Respiratory Distress Crackles Decreased Breath Sounds Wheezing Cardiovascular: No Edema No Gallop No JVD No Murmur Normal Peripheral Pulses Irregularly Irregular Gastrointestinal: Normal Bowel Sounds No Organomegaly No Pulsatile Mass Non Tender Soft Back: Normal Inspection No CVA Tenderness No Vertebral Tenderness Extremity: Normal Capillary Refill Normal Inspection Normal Range of Motion Non Tender No Calf Tenderness Swelling Neurologic/Psychiatric: Alert Oriented x3 No Motor/Sensory Deficits Normal Mood/Affect Skin: Normal Color Warm/Dry Lymphatic: No Adenopathy Results Results/Procedures Lab Laboratory Tests 10/21/16 19:50 10/22/16 00:20 10/22/16 03:37 Assessment/Plan Admission Diagnosis Acute influenza A w/sepsis and elevated lactic acid Pleural effusion left questionable pneumonia so covering empirically Elevated liver enzymes USG reveals small amount of ascites vital hepatitis panel pending Coagulopathy Atrial Fibrillation Wide complex tachycardia hx Acute on Chronic Systolic CHF Ex Diabetes Mellitus Type 2 Mild tachypnea on exam checking ABG CAD previous CABG Assessment and Plan Continue empiric broad-spectrum antibiotics of Zosyn and Levaquin Evaluate acute viral hepatitis panel Gentle IV fluids due to elevated lactic acid Check ABG Consult pulmonology Appreciate cardiology input for atrial fibrillation Monitor labs Maintain ICU admission due to critical illness Monitor closely Clinical Quality Measures DVT/VTE Risk/Contraindication: Risk Factor Score Per Nursin RFS Level Per Nursing on Admit: 2=Moderate CAMMY MIXON DO Oct 22, 2016 09:01
[2016-10-22] MEDS ORDERED: FUROSEMIDE 40 MG/4 ML INJ (LASIX) IVP NR (09:30)
--- NOTE | 2016-10-22 10:04 | Pulmonary Consultation ---
History of Present Illness History of Present Illness Date of Consultation 10/22/16 10:00 Date of Admission History of Present Illness 76yo with hx of A-Fib, DM, ischemic cardiomyopathy presented secondary to worsening SOB, weakness and nonproductive cough. NO prior episodes like this. Denies CP, palpitations, syncope I am consulted for pulmonary management. Allergies and Home Medications Allergies Coded Allergies: No Known Drug Allergies (Unverified , 04/17/15) Home Medications Allopurinol 100 Mg Tablet, 100 MG PO DAILY, (Reported) Amiodarone HCl 200 Mg Tablet, 200 MG PO DAILY, (Reported) Amoxicillin/Potassium Clav 1 Each Tablet, 875 MG PO BID WITH MEALS, #6 Prescribed by: CAMMY MIXON on 10/25/16 1139 Apixaban 2.5 Mg Tablet, 2.5 MG PO BID, #60 Prescribed by: CAMMY MIXON on 10/25/16 1145 Aspirin 81 Mg Tablet.dr, 81 MG PO HS, (Reported) Cod Liver Oil 1 Each Capsule, 1 CAP PO DAILY, (Reported) Furosemide 40 Mg Tablet, 40 MG PO BID, (Reported) Garlic 1 Each Capsule, 1 CAP PO DAILY, (Reported) Glyburide 5 Mg Tablet, 2.5 MG PO DAILY, (Reported) TAKES 1/2 (5MG) TABLET Metoprolol Succinate 50 Mg Tab.er.24h, 50 MG PO DAILY, (Reported) Metoprolol Succinate 25 Mg Tab.er.24h, 25 MG PO HS, (Reported) Oseltamivir Phosphate 75 Mg Cap, 1 EACH PO BID for 2 Days Prescribed by: CAMMY MIXON on 10/25/16 1143 Sacubitril/Valsartan 1 Each Tablet, 1 TAB PO BID, (Reported) Past Txcotvu-Ftgwkg-Akpiox Hx Patient Social History Alcohol Use: Denies Use Recreational Drug Use: No Smoking Status: Former Smoker Former Smoker/When Quit: Recent Foreign Travel: No Contact w/Someone Who Travel: No Recent Infectious Disease Expo: No Recent Hopitalizations: No Physical Abuse Screen: No Sexual Abuse: No Immunizations Up To Date PED Vaccines UTD: No Seasonal Allergies Seasonal Allergies: No Surgeries HX Surgeries: Yes (PACEMAKER) Surgeries: Cardiac, CABG, Defibrillator, Pacemaker Respiratory Hx Respiratory Disorders: No Cardiovascular Hx Cardiac Disorders: Yes (CABG/ATRIAL FLUTTER, congestive heart failure) Cardiac Disorders: Atrial Fibrillation, Cardiomyopathy, Coronary Artery Disease , Hypertension, Valvular Heart Disease Neurological Hx Neurological Disorders: No Reproductive System Hx Reproductive Disorders: No Genitourinary Hx Genitourinary Disorders: No Gastrointestinal Hx Gastrointestinal Disorders: No Musculoskeletal Hx Musculoskeletal Disorders: No Endocrine Hx Endocrine Disorders: Yes Endocrine Disorders: Diabetes, Non-Insulin dep HEENT HX ENT Disorders: No Cancer Hx Cancer: No Psychosocial Hx Psychiatric Problems: No Integumentary HX Skin/Integumentary Disorder: No Blood Transfusions Hx Blood Disorders: No Review of Systems Constitutional: Fever, Malaise, Weakness Eyes: No: Conjunctivae inflammation, Eyelid inflammation, Other, Pain, Redness , Vision change Respiratory: SOB with excertion, Shortness of breath, Sputum Cardiovascular: Paroxysmal Noc. Dyspnea Gastrointestinal: No: Abdominal Pain, Constipation, Diarrhea, Hematochezia, Melena, Nausea, Other, Vomiting Neurological: Weakness Exam Exam Vital Signs Date Time Temp Pulse Resp B/P Pulse Ox O2 Delivery O2 Flow Rate FiO2 10/22/16 09:00 80 26 92/59 92 Nasal Cannula 2.00 10/22/16 08:00 80 24 101/64 92 Nasal Cannula 2.00 10/22/16 07:11 94 1.00 10/22/16 07:00 80 24 93/64 94 Nasal Cannula 2.00 10/22/16 07:00 80 10/22/16 06:00 80 23 98/64 93 Nasal Cannula 2.00 10/22/16 05:00 80 25 98/67 94 Nasal Cannula 2.00 10/22/16 04:00 99.2 10/22/16 04:00 80 27 94/65 92 Nasal Cannula 2.00 10/22/16 04:00 93 2.00 10/22/16 03:00 80 26 102/66 93 Nasal Cannula 2.00 10/22/16 02:00 80 26 92/57 94 Nasal Cannula 2.00 10/22/16 01:00 80 26 97/63 95 Nasal Cannula 2.00 10/22/16 01:00 80 10/22/16 00:30 95 2.00 10/22/16 00:00 99.9 80 24 108/65 95 Nasal Cannula 2.00 10/22/16 00:00 99.9 80 24 108/65 95 Nasal Cannula 2.00 10/21/16 23:18 94 2.00 10/21/16 23:07 80 2/19/17 23:00 99.9 80 19 115/69 93 Nasal Cannula 2.00 10/21/16 23:00 99.9 80 17 115/69 93 Nasal Cannula 10/21/16 22:45 93 2.00 10/21/16 21:53 99.4 81 22 120/69 97 Nasal Cannula 2 10/21/16 20:36 100.1 84 31 126/81 98 Nasal Cannula 2 10/21/16 20:20 96 2 10/21/16 20:03 95 Nasal Cannula 2 10/21/16 19:41 98.4 69 22 118/78 94 Room Air I & O 10/22/16 07:00 Intake Total 875 ml Output Total 1500 ml Balance -625 ml General Appearance: No Apparent Distress, WD/WN, Chronically ill, Mild Distress (mild tachypnea) HEENT: PERRL/EOMI, Normal ENT Inspection, Pharynx Normal Neck: Full Range of Motion, Normal Inspection, Non Tender, Supple, Carotid Bruit Respiratory: Chest Non Tender, No Respiratory Distress, Crackles, Decreased Breath Sounds, Wheezing Cardiovascular: No Edema, No Gallop, No JVD, No Murmur, Normal Peripheral Pulses, Irregularly Irregular Capillary Refill: Less Than 3 Seconds Extremity: Normal Capillary Refill, Normal Inspection, Normal Range of Motion, Non Tender, No Calf Tenderness, Swelling Neurologic/Psychiatric: Alert, Oriented x3, No Motor/Sensory Deficits, Normal Mood/Affect Skin: Normal Color, Warm/Dry Lymphatic: No Adenopathy Results Lab Laboratory Tests 10/21/16 19:50 10/22/16 00:20 10/22/16 03:37 Assessment/Plan Assessment/Plan Acute influenza A w/sepsis Metabolic acidosis and elevated lactic acid -IVF Pneumonia -Continue Abx Elevated liver enzymes USG reveals small amount of ascites -hepatitis panel pending Coagulopathy Atrial Fibrillation Wide complex tachycardia hx Acute on Chronic Systolic CHF Ex Diabetes Mellitus Type 2 Mild tachypnea on exam checking ABG CAD previous CABG Clinical Quality Measures DVT/VTE Risk/Contraindication: Risk Factor Score Per Nursin RFS Level Per Nursing on Admit: 2=Moderate GARRETT MACHADO DO Oct 22, 2016 10:04
[2016-10-22] MEDS: OSELTAMIVIR 75 MG (TAMIFLU) BOX OF 10 PO SCH ×2 (10:14→19:50)
[2016-10-22] MEDS: NS IV 1000 ML 1,000 ML IV SCH ×2 (10:23→19:50)
[2016-10-22] MEDS ORDERED: METO-270 PO (10:26)
[2016-10-22] MEDS ORDERED: AMIO200T2 PO (10:26)
[2016-10-22] MEDS ORDERED: SPIR25TA3 PO (10:26)
[2016-10-22] MEDS: ENOXAPARIN 40 MG/0.4 ML (LOVENOX) SYR SC SCH (10:30)
[2016-10-22] MEDS ORDERED: FUROSEMIDE 40 MG/4 ML INJ (LASIX) IVP SCH (17:00)
[2016-10-22] MEDS: LEVOFLOXACIN 750 MG/D5W 150 ML PRE-MIX IV SCH (23:01)
[2016-10-23] VITALS (9 sets, daily range): BP systolic 104–121; BP diastolic 65–82
[2016-10-23] MEDS: PIPERACILLIN/TAZOBACTAM 4.5 GM/NS100 ML IVPB IV SCH ×6 (02:39→19:51)
[2016-10-23] MEDS: CATHETER FLUSH 10 ML SYR IV SCH ×3 (03:55→22:00)
[2016-10-23 04:29] LABS: BASOPHILS % (AUTO) 0 % (0-10); EOSINOPHILS % (AUTO) 0 % (0-10); LYMPHOCYTES # (AUTO) 1.5 X 10^3 (1.0-4.0); LYMPHOCYTES % (AUTO) 19 % (12-44); MEAN CORPUSCULAR HEMOGLOBIN 28 PG (25-34); MEAN CORPUSCULAR HGB CONC 34 G/DL (32-36); MEAN CORPUSCULAR VOLUME 84 FL (80-99); MONOCYTES % (AUTO) 12 % (0-12); NEUTROPHILS # (AUTO) 5.5 X 10^3 (1.8-7.8); NEUTROPHILS % (AUTO) 69 % (42-75); PLATELET COUNT 83 10^3/uL (130-400); RED BLOOD COUNT 5.67 10^6/uL (4.35-5.85); RED CELL DISTRIBUTION WIDTH 21.9 % (10.0-14.5)
[2016-10-23 04:42] LABS: INR 1.7 (0.8-1.4); PROTHROMBIN TIME PATIENT 19.3 SEC (12.2-14.7)
[2016-10-23 05:07] LABS: ALANINE AMINOTRANSFERASE 463 U/L (0-55); ALBUMIN 2.6 G/DL (3.2-4.5); ANION GAP 10 MMOL/L (5-14); ASPARTATE AMINO TRANSFERASE 204 U/L (5-34); BILIRUBIN,TOTAL 2.4 MG/DL (0.1-1.0); BLOOD UREA NITROGEN 16 MG/DL (7-18); BUN/CREATININE RATIO 22; CARBON DIOXIDE 27 MMOL/L (21-32); CHLORIDE 101 MMOL/L (98-107); CREATININE SERUM 0.73 MG/DL (0.60-1.30); GFR ESTIMATED > 60; GLUCOSE 81 MG/DL (70-105); MAGNESIUM 1.7 MG/DL (1.8-2.4); PHOSPHORUS 2.1 MG/DL (2.3-4.7); POTASSIUM 3.5 MMOL/L (3.6-5.0); SODIUM 138 MMOL/L (135-145); TOTAL PROTEIN 5.5 G/DL (6.4-8.2)
[2016-10-23] MEDS: NS IV 1000 ML 1,000 ML IV SCH (05:24)
[2016-10-23] MEDS ORDERED: KCL 20 MEQ TAB (K-DUR) PO SCH (06:00)
[2016-10-23] MEDS ORDERED: POTASSIUM CL 10MEQ/50ML IVPB 50 ML IV SCH (06:00)
[2016-10-23] MEDS ORDERED: KCL 20 MEQ TAB (K-DUR) PO ONE (06:00)
[2016-10-23] MEDS ORDERED: MAGNESIUM 1 GM/100 ML IVPB 100 ML IV SCH (06:00)
--- NOTE | 2016-10-23 06:13 | Pulmonary Progress Note ---
Subjective Subjective/Events-last exam PT is doing well no complications noted. Exam Exam Vital Signs Date Time Temp Pulse Resp B/P Pulse Ox O2 Delivery O2 Flow Rate FiO2 10/23/16 04:00 98.3 80 20 104/74 96 Nasal Cannula 2.00 10/23/16 03:55 94 2.00 10/23/16 03:00 80 25 110/81 96 Nasal Cannula 2.00 10/23/16 02:37 111/82 10/23/16 02:00 80 27 97 Nasal Cannula 2.00 10/23/16 01:00 80 32 111/72 97 Nasal Cannula 2.00 10/23/16 01:00 80 10/23/16 00:00 98.6 80 22 121/78 96 Nasal Cannula 2.00 10/22/16 23:35 95 2.00 10/22/16 23:15 80 26 96 Nasal Cannula 2.00 10/22/16 23:00 80 13 116/74 91 Room Air 10/22/16 22:00 80 18 118/77 95 Room Air 10/22/16 21:00 80 16 101/65 94 Nasal Cannula 2.00 10/22/16 20:00 80 23 111/68 95 Nasal Cannula 2.00 10/22/16 20:00 93 2.00 10/22/16 19:00 80 10/22/16 19:00 98.2 80 20 118/75 95 Nasal Cannula 2.00 10/22/16 18:45 95 2.00 10/22/16 16:00 93 2.00 10/22/16 16:00 80 89/55 92 Nasal Cannula 2.00 10/22/16 15:00 80 89/54 94 Nasal Cannula 2.00 10/22/16 14:00 80 24 101/55 94 Nasal Cannula 2.00 10/22/16 13:00 80 10/22/16 13:00 80 23 102/65 95 Nasal Cannula 2.00 10/22/16 12:00 93 2.00 10/22/16 12:00 80 20 100/60 94 Nasal Cannula 2.00 10/22/16 11:08 94 2.00 10/22/16 11:00 80 24 106/68 95 Nasal Cannula 2.00 10/22/16 10:00 80 23 95/60 95 Nasal Cannula 2.00 10/22/16 09:00 80 26 92/59 92 Nasal Cannula 2.00 10/22/16 08:00 80 24 101/64 92 Nasal Cannula 2.00 10/22/16 08:00 93 2.00 10/22/16 07:11 94 1.00 10/22/16 07:00 80 24 93/64 94 Nasal Cannula 2.00 10/22/16 07:00 80 I & O 10/23/16 07:00 Intake Total 3750 ml Output Total 2075 ml Balance 1675 ml General Appearance: No Apparent Distress WD/WN Chronically ill Mild Distress ( mild tachypnea) HEENT: PERRL/EOMI Normal ENT Inspection Pharynx Normal Neck: Full Range of Motion Normal Inspection Non Tender Supple Carotid Bruit Respiratory: Chest Non Tender No Respiratory Distress Crackles Decreased Breath Sounds Wheezing Cardiovascular: No Edema No Gallop No JVD No Murmur Normal Peripheral Pulses Irregularly Irregular Capillary Refill: Less Than 3 Seconds Extremity: Normal Capillary Refill Normal Inspection Normal Range of Motion Non Tender No Calf Tenderness Swelling Neurologic/Psychiatric: Alert Oriented x3 No Motor/Sensory Deficits Normal Mood/Affect Skin: Normal Color Warm/Dry Lymphatic: No Adenopathy Results Lab Laboratory Tests 10/21/16 19:50 10/22/16 00:20 10/22/16 03:37 10/23/16 03:40 Assessment/Plan Assessment/Plan Acute influenza A w/sepsis Metabolic acidosis and elevated lactic acid -IVF -repeat LA Pneumonia -Continue Abx Elevated liver enzymes USG reveals small amount of ascites -hepatitis panel pending hx o Coagulopathy Atrial Fibrillation Wide complex tachycardia hx Acute on Chronic Systolic CHF Ex EF 20% Diabetes Mellitus Type 2 Mild tachypnea on exam checking ABG CAD previous CABG Transfer pt to floor. Clinical Quality Measures DVT/VTE Risk/Contraindication: Risk Factor Score Per Nursin RFS Level Per Nursing on Admit: 2=Moderate GARRETT MACHADO DO Oct 23, 2016 06:13
[2016-10-23] MEDS ORDERED: SODIUM PHOSPHATE INJ 30 MM in NS (IVPB) 250 ML IV NR (06:15)
[2016-10-23] MEDS: MAGNESIUM 1 GM/100 ML IVPB 100 ML IV SCH ×2 (06:24→07:18)
[2016-10-23] MEDS: RT-ALBUTEROL SULF 2.5 MG/3 ML PRE-MIX VIAL INH SCH ×4 (06:58→20:04)
[2016-10-23] MEDS ORDERED: TROUGH ORDER-PHARMACY XX NR (07:00)
--- NOTE | 2016-10-23 08:42 | Diagnostic Imaging Report ---
INDICATION: Influenza, sepsis.. TECHNIQUE: Single-view chest 5:22 AM. CORRELATION STUDY: 10/22/2016. FINDINGS: Effusion along with atelectasis or infiltrate, left lung base, persists, relatively stable. Right lung unchanged. Patient is poststernotomy. Stable severity cardiac enlargement. No evidence for overt failure. Left-sided pacemaker stable. IMPRESSION: 1. Small left pleural effusion along with infiltrate or atelectasis, left lung base, generally stable. 2. Stable cardiac enlargement without failure. Dictated by: Dictated on workstation # [id number]
--- NOTE | 2016-10-23 09:06 | Progress Note-Cardiology ---
Cardiology SOAP Progress Note Subjective: States he feels better today. Continues to feel weak. C/O occ loose cough. No c/o CP, palpitations or dyspnea. Objective: I&O/Vital Signs Vital Sign - Last 12Hours 10/23/16 10/23/16 10/23/16 10/23/16 02:00 02:37 03:00 03:55 Pulse 80 80 Resp 27 25 B/P 111/82 110/81 Pulse Ox 97 96 94 O2 Delivery Nasal Cannula Nasal Cannula O2 Flow Rate 2.00 2.00 2.00 10/23/16 10/23/16 10/23/16 10/23/16 04:00 05:00 06:00 06:58 Temp 98.3 Pulse 80 80 80 Resp 20 17 19 B/P 104/74 112/70 121/79 Pulse Ox 96 98 99 98 O2 Delivery Nasal Cannula Nasal Cannula Nasal Cannula O2 Flow Rate 2.00 2.00 2.00 3.00 10/23/16 10/23/16 10/23/16 10/23/16 07:00 08:00 11:09 12:00 Pulse 80 Pulse Ox 94 95 95 10/23/16 12:00 Temp 98.0 Pulse 80 Resp 18 B/P 111/66 O2 Delivery Room Air Intake and Output 10/23/16 00:00 Intake Total 2200 ml Output Total 1400 ml Balance 800 ml Weight (Pounds): 174 Weight (Ounces): 6.0 Weight (Calculated Kilograms): 79.255927 Constitutional: appears stated ageNo apparent distress, well-developed well- nourished Respiratory: wheezing (scattered exp) other (coarse lung sounds lower lobes bilat) Cardiovascular: regular rate-rhythmNo JVD, S1 and S2 systolic murmur Gastrointestional: No tender, soft roundNo spleenomegaly Extremities: No clubbing, No cyanosis, significant edema (mild bilat LE edema) Neurologic/Psychiatric: alert oriented x 3 power is 5/5 both on sides Skin: No rash, No ulcerations Results/Procedures: Labs Laboratory Tests 10/22/16 21:38: Glucometer 117H 10/23/16 03:40: Alanine Aminotransferase (ALT/SGPT) 463H, Albumin 2.6L, Alkaline Phosphatase 86 , Anion Gap 10, Aspartate Amino Transf (AST/SGOT) 204H, BUN/Creatinine Ratio 22 , Basophils # (Auto) 0.0, Basophils (%) (Auto) 0, Blood Urea Nitrogen 16, Calcium Level 8.0L, Carbon Dioxide Level 27, Chloride Level 101, Creatinine 0.73 , Eosinophils # (Auto) 0.0, Eosinophils (%) (Auto) 0, Estimat Glomerular Filtration Rate > 60, Glucose Level 81, Hematocrit 48, Hemoglobin 16.0, INR Comment 1.7H, Lymphocytes # (Auto) 1.5, Lymphocytes (%) (Auto) 19, Magnesium Level 1.7L, Mean Corpuscular Hemoglobin 28, Mean Corpuscular Hemoglobin Concent 34, Mean Corpuscular Volume 84, Mean Platelet Volume , Monocytes # (Auto) 1.0, Monocytes (%) (Auto) 12, Neutrophils # (Auto) 5.5, Neutrophils (%) (Auto) 69, Phosphorus Level 2.1L, Platelet Count 83L, Potassium Level 3.5L, Prothrombin Time 19.3H, Red Blood Count 5.67, Red Cell Distribution Width 21.9H, Sodium Level 138, Total Bilirubin 2.4H, Total Protein 5.5L, White Blood Count 8.0 10/23/16 07:10: Lactic Acid Level 1.5, Vancomycin Level Trough 1.2L 10/23/16 11:15: Glucometer 166H Microbiology 10/21/16 Blood Culture - Preliminary, Resulted No growth 10/21/16 MRSA Screen - Final, Complete MRSA not isolated 10/21/16 Urine Culture - Final, Complete NO GROWTH Laboratory Tests 10/21/16 19:50 10/22/16 00:20 10/22/16 03:37 10/23/16 03:40 Procedures NAME: MICHAELA ROPER [facility] REC#: [id number] PT STATUS: ADM IN : 1940 PHYSICIAN: EDUAR PAULA MD ADMIT DATE: 10/21/16/ICU Draft Date of Exam:10/23/16 CHEST 1 VIEW, AP/PA ONLY INDICATION: Influenza, sepsis.. TECHNIQUE: Single-view chest 5:22 AM. CORRELATION STUDY: 10/22/2016. FINDINGS: Effusion along with atelectasis or infiltrate, left lung base, persists, relatively stable. Right lung unchanged. Patient is poststernotomy. Stable severity cardiac enlargement. No evidence for overt failure. Left-sided pacemaker stable. IMPRESSION: 1. Small left pleural effusion along with infiltrate or atelectasis, left lung base, generally stable. 2. Stable cardiac enlargement without failure. Dictated on workstation # [id number] Dict: 10/23/16 0754 Trans: 10/23/16 0841 [id number] Interpreted by: AMBER LOPEZ DO Electronically signed by: A/P: Assessment: Probable sepsis with multi-organ involvement and hepatic insufficiency - liver enzymes improving (+) Influenza A - medical services managing Chronic systolic CHF - treat with IV diuretics, as needed Persistent a fib with poor vent rate control, treated with AVN ablation in mid Sep 2015 at [facility] by Dr Hernández S/p single ch ICD implanted on 02/07/16, upgraded to SOFTWARE DEVELOPMENT ANALYST-D by Dr Hernández in Sep 2015 , functioning normally on interrogation of 10/10/16 Episode of wide complex tachycardia during hospitalization of January 20, 2016 OAC with Eliquis - currently being withheld d/t coagulopathy d/t hepatic insufficiency Documented episode of NSVT during hospitalization of January 21, 2016 Slow atrial flutter, newly diagnosed on 04/17/15, with 2:1 AV conduction. S/p ext elec cardioversion to NSR on 04/19/15. S/P ablation for atrial flutter by Dr. Hernández at [facility] by Dr. Hernández on 06/09/15 Ischemic Cardiomyopathy. LVEF 35-40%, based on TTE and CROW of 04/18 and 04/19/15. LVEF 22% on MPI of 05/19/15. LVEF 33% on MUGA of 05/24/15. LVEF 25% on echo of 08/17 CAD with history of CABGx5 at the [facility] 5-6 years ago. Details of CABG unavailable. MPI of 05/19/15 did not show ischemia or infarction but there was LV enlargement and LVEF was 22% Echocardiogram of April 13, 2016 showed marked impairment of LV systolic function iwth an ejection fraction of 20%. Global ypokinesis of the LV, more marked in the anteroseptal wall. Mod sever MR and TR. Mild to mod mitral anular calcification and aortic valve sclerosis without evidence of significant valvular stenosis. PASP estimated to approx 40mmHg. 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 Acute on chronic systolic CHF we will treat with diuretics as needed - being managed by pulmonary services Monitor lab closely. D/t acute hepatic failure with coagulopathy at admission (INR >2.5) we are holding off on OAC at this time. Thrombocytopenia (somewhat worse today) - being managed by medical services Sepsis being managed by medical services Generalized weakness Physician Assessment Physician Assessment Lungs: good bilat air entry Cor: reg A&R * As documented in our note above * I spoke with him and answered questions EDEL CHUN Oct 23, 2016 09:05 JESICA PATRICK MD FACP FAC CCDS Oct 23, 2016 14:00 managed by pulmonary services Monitor lab closely. D/t acute hepatic failure with coagulopathy at admission (INR >2.5) we are holding off on OAC at this time. Thrombocytopenia (somewhat worse today) - being managed by medical services Sepsis being managed by medical services Generalized weakness EDEL CHUN Oct 23, 2016 09:05
--- NOTE | 2016-10-23 09:24 | Progress Note-Hospitalist ---
Progress Note HPI/CC on Admission CC: Fever with cough HPI: This is a 76-year-old white male clinic patient a [facility] with a past medical history of atrial fibrillation on Eliquis and diabetes mellitus the presents to the ICU after admitted due to fever and cough with an acute influenza a diagnosis with possible left lower lobe pneumonia versus effusion. Cardiology has been consulted for atrial fibrillation and he has a long-standing history of suppressed systolic function due to ischemic cardiomyopathy. At this current time patient is mildly tachypneic but not in any respiratory distress but I am according ABG and I did speak to cardiology regarding the need for gentle IV fluids due to elevated lactic acid. Ultrasound of the liver showed mild ascites and that was obtained due to the elevated liver enzymes and he had not been aware of any liver problems before. He denies any heavy alcohol use and he is vague on when he did have alcohol exposure but it appears to be a remote history. Acute viral hepatitis panel is pending at this current time but doesn't have any risk like IV drug abuse or tattoos that would pose any risk for that so unsure the etiology. The coagulopathy is significant indicating significant cirrhosis since his INR is 2.8 and platelet count is decreased. I did narrow the antibiotic spectrum with discontinuation of vancomycin but maintained Levaquin and Zosyn. Progress Notes/Assess & Plan Date Seen 10/23/16 Admission Dx/Process Acute influenza A w/sepsis and elevated lactic acid Pleural effusion left questionable pneumonia so covering empirically Elevated liver enzymes USG reveals small amount of ascites vital hepatitis panel pending Coagulopathy Atrial Fibrillation Wide complex tachycardia hx Acute on Chronic Systolic CHF Ex Diabetes Mellitus Type 2 Mild tachypnea on exam checking ABG CAD previous CABG Diagonsis/Assessment & Plan Patient doing much better and has weaned off oxygen very wheezy on exam and overall very weak Liver enzymes are much improved but ammonia level is noted to be 44 and needs bowel movement education anyway so we'll will initiate lactulose to help with that Physical therapy and occupational therapy will be ordered in inpatient rehabilitation evaluate and management to see if we can recuperate there Overall doing well otherwise No fever, vital signs stable, pleasant, improved, chronically ill Irregular rate and rhythm, clear to auscultation in the upper lobes but wheezing in the lower lobes and improved tachypnea from yesterday Trace edema lower extremities with venous stasis changes with vascular changes Laboratory Tests 10/23/16 03:40 Assessment: Acute influenza A w/sepsis and elevated lactic acid Pleural effusion with left pneumonia so covering empirically Elevated liver enzymes USG reveals small amount of ascites vital hepatitis panel pending and ammonia was elevated at 44 Coagulopathy Atrial Fibrillation Wide complex tachycardia hx Acute on Chronic Systolic CHF Ex Diabetes Mellitus Type 2 Mild tachypnea on exam checking ABG CAD previous CABG Constipation Continue empiric broad-spectrum antibiotics of Zosyn Evaluate acute viral hepatitis panel s/p Gentle IV fluids due to elevated lactic acid Consult pulmonology Appreciate cardiology input for atrial fibrillation Monitor labs Monitor closely PT/OT IGORU CAMMY MIXON DO Oct 23, 2016 09:24
--- NOTE | 2016-10-23 10:32 | Physical Therapy Evaluation ---
PT Evaluation-General Medical Diagnosis Admission Date Oct 21, 2016 at 22:14 Medical Diagnosis: influenza A, sepsis, pneumonia Onset Date: Oct 21, 2016 Therapy Diagnosis Therapy Diagnosis: generalized weakness/debility Height/Weight Height (Feet): 6 Height (Inches): 0.00 Weight (Pounds): 174 Weight (Ounces): 6.0 Precautions Precautions/Isolations: Standard Precautions Referral Physician: Karina Reason for Referral: Evaluation/Treatment Medical History Pertinent Medical History: Atrial Fib (pacemaker), CABG, CAD, DM, Heart Failure (EF 20%), HTN Current History SOA x 1 wk with weakness, cough, HUGHES, nausea, loss of appetite Reviewed History: Yes Social History Home: Single Level Current Living Status: Spouse Entry Into Home: Stairs Without Railing PT Steps Into Home: 2 Prior/Core FIM Prior Level of Function Functional [place] Measure 0=Not Assessed/NA 4=Minimal Assistance 1=Total Assistance 5=Supervision or Setup 2=Maximal Assistance 6=Modified [place] 3=Moderate Assistance 7=Complete [place] Bed Mobility: 7 Transfers (B,C,W/C) (FIM): 7 Gait: 7 Locomotion: 7 PT Evaluation-Current Subjective Patient agrees to PT. Patient states he is much stronger than Saturday. Pain Numeric Pain Scale: 0-No Pain Location: No Pain Reported Objective Patient Orientation: Normal For Age Problem Solving: Good ROM/Strength ROM Lower Extremities bilateral LE WFL Strenght Lower Extremities bilateral LE 4/5 grossly Integumentary/Posture Integumentary refer to nursing notes Bowel Incontinence: No Bladder Incontinence: No Posture slightly kyphotic Neuromuscular (Tone, Coordination, Reflexes) grossly intact Sensory Vision: Wears Glasses Hearing: Functional Sensation Right Lower Extremit: Impaired Sensation Left Lower Extremity: Impaired Transfers Functional [place] Measure 0=Not Assessed/NA 4=Minimal Assistance 1=Total Assistance 5=Supervision or Setup 2=Maximal Assistance 6=Modified [place] 3=Moderate Assistance 7=Complete [place] Transfers (B, C, W/C) (FIM): 5 Scootin Rollin Supine to/from Sit: 5 Sit to/from Stand: 5 Gait Mode of Locomotion: Walk Anticipated Mode of Locomotion: Walk Gait (FIM): 5 Distance (FIM): 3=150 ft Distance: 200' Gait Level of Assist: 5 Gait Persons Needed: 1 Gait Assistive Device: FWW Comments/Gait Description safe and functional with FWW; fatigues quickly with activity Balance Sitting Static: Normal Sitting Dynamic: Normal Standing Static: Normal Standing Dynamic: Normal Assessment/Needs 76 y.o. male, will benefit from short term skilled PT to address functional mobility to return to home with spouse at maximum LOF. Rehab Potential: Good PT Short Term Goals Short Term Goals Time Frame: Oct 26, 2016 Transfers (B,C,W/C) (FIM): 6 Gait (FIM): 6 Distance (FIM): 3=150 ft Gait Level of Assist: 6 Gait Assistive Device: None, FWW PT Plan Problem List Problem List: Activity Tolerance Treatment/Plan Treatment Plan: Continue Plan of Care Treatment Plan: Education, Functional Activity Felecia, Functional Strength, Gait , Safety, Therapeutic Exercise, Transfers Treatment Duration: Oct 26, 2016 # of days/week 4 Visits Per Week: 4 Pt/Family Agrees w/Plan: Yes Safety Risks/Education Patient Education: Safety Issues Teaching Recipient: Patient Teaching Methods: Discussion Response to Teaching: Verbalize Understanding Discharge Recommendations Therapy D/C Recommendations: Home w/ Family Support Time/GCodes Time In: 935 Time Out: 955 Total Billed Treatment Time: 20 Total Billed Treatment 1 visit EVLowC 20 min G Codes Necessary: ANITA Smith PT Oct 23, 2016 10:32
[2016-10-23] MEDS: OSELTAMIVIR 75 MG (TAMIFLU) BOX OF 10 PO SCH ×2 (10:42→20:19)
[2016-10-23] MEDS: ENOXAPARIN 40 MG/0.4 ML (LOVENOX) SYR SC SCH (10:42)
[2016-10-23] MEDS: LACTULOSE SYRUP 10GM/15ML (ENULOSE) 30ML UDC PO SCH ×2 (10:43→20:18)
--- NOTE | 2016-10-23 11:13 | Occupational Therapy Eval ---
OT Evaluation-General/PLF Medical Diagnosis Admission Date Oct 21, 2016 at 22:14 Medical Diagnosis: influenza A, sepsis, pneumonia Onset Date: Oct 21, 2016 Therapy Diagnosis Therapy Diagnosis: weakness, decreased self care, decreased activity tolerance Height/Weight Height (Feet): 6 Height (Inches): 0.00 Weight (Pounds): 174 Weight (Ounces): 6.0 Precautions Precautions/Isolations: Standard Precautions Safety Interventions: None Referral Physician: Karina Referral Reason: Evaluation/Treatment Medical History Pertinent Medical History: Atrial Fib (pacemaker), CABG, CAD, DM, Heart Failure (EF 20%), HTN Additional Medical History pacemaker, defibrillator, cardiomyopathy, valvular heart disease, EF 20% Current History Admitted through ED with influenza, sepsis, pneumonia, CHF exacerbation Reviewed History: Yes Social History Home: Single Level Current Living Status: Spouse Entry Into Home: Stairs Without Railing Steps Into Home: 2 ADL-Prior Level of Function ADL PLOF Comments Pt reported that he was able to manage all of his basic ADLs prior to admission. he also did things around the house, mowed, fed the cats in the barn. He still drives and is retired. 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 Pt reported pain 0/10. Pt reported he was interested in ARU but concerned about LOS of 7-10 days. Appearance Alert, cooperative Mental Status/Objective Patient Orientation: Person, Place, Time, Situation Attachments: IV, Telemetry Current Glasses/Contacts: Yes Upper Extremity ROM Grossly WFL bilat. Upper Extremity Sensation Pt reported no problems Upper Extremity Strength Grossly 4/5 bilat Edema: Some edema noted in hands and feet ADL-Treatment Functional [place] Measure 0=Not Assessed/NA 4=Minimal Assistance 1=Total Assistance 5=Supervision or Setup 2=Maximal Assistance 6=Modified [place] 3=Moderate Assistance 7=Complete IndependenceIRFPAI Quality Coding Scale 6 Independent with activity with or without an assistive device 5 Patient requires set up or clean up by helper. Patient completes activity by themselves 4 Supervision or touching assist (CGA). [place] provide cues , steadying assist 3 The helper provides less than half the effort to complete the activity 2 The helper provides more than half the effort to complete the activity 1 Dependent. The helper does all the effort to complete an activity 7 Patient refused to complete or attempt activity 9 The patient did not perform the activity before the current illness or injury 88 Not attempted due to Medical conditions or safety concerns Eating (FIM): 5 (Per pt report) Lower Body Dressing (FIM): 5 (Able to doff and don slipper socks without assistance. will bring in clothes) Toileting (FIM): 3 (Help with wiping, per pt report) Transfers (B, C, W/C) (FIM): 5 (SBA, sit to stand. Stood with FWW with SBA) Pt left up in recliner, legs elevated, all needs met Other Treatments Pt encouraged to elevate legs when up in recliner, Feet were dark and a little edematous Education OT Patient Education: Purpose of tx/functional activities, Rehab process OT Short Term Goals Short Term Goals Transfers (B,C,W/C) (FIM): 6 OT Superintendent Institution Goals Superintendent Institution Goals Time Frame: Oct 30, 2016 Eating (FIM): 6 Grooming(FIM): 6 Bathing(FIM): 6 Upper Body Dressing(FIM): 6 Lower Body Dressing(FIM): 6 Toileting(FIM): 6 Toilet/Commode Transfer(FIM): 6 Shower Transfer(FIM): 6 Additional Goals: 2-Verbalize Understanding, 3-ImproveStrength/Felecia 1=Demonstrate adherence to instructed precautions during ADL tasks. 2=Patient will verbalize/demonstrate understanding of assistive devices/ modifications for ADL. 3=Patient will improve strength/tolerance for activity to enable patient to perform ADL's. OT Education/Plan Problem List/Assessment Assessment: Decreased Activ Tolerance, Decreased UE Strength, Impaired Self- Care Skills Pt would benefit from skilled OT to increase his activity tolerance and independence in basic ADLs to allow him to safely return to his home with his . Discharge Recommendations Plan/Recommendations: Continue POC Treatment Plan/Plan of Care Treatment,Training & Education: Yes Patient would benefit from OT for education, treatment and training to promote independence in ADL's, mobility, safety and/or upper extremity function for ADL' s. Plan of Care: ADL Retraining, UE Funct Exercise/Act Treatment Duration: Oct 30, 2016 # of days/week 5 Visits Per Week: 5 Agreement: Yes Rehab Potential: Good Time/GCodes Start Time: 10:40 Stop Time: 11:00 Total Time Billed (hr/min): 20 Billed Treatment Time visitaraseli low intensity 20 minutes MAICOL WRIGHT OT Oct 23, 2016 11:13
[2016-10-24 02:02] VITALS: BP 119/80
[2016-10-24] MEDS: PIPERACILLIN/TAZOBACTAM 4.5 GM/NS100 ML IVPB IV SCH ×6 (03:52→18:44)
[2016-10-24 04:10] VITALS: BP 124/86
[2016-10-24] MEDS: CATHETER FLUSH 10 ML SYR IV SCH ×3 (06:00→22:00)
[2016-10-24 06:38] LABS: BASOPHILS % (AUTO) 1 % (0-10); EOSINOPHILS % (AUTO) 0 % (0-10); LYMPHOCYTES # (AUTO) 2.2 X 10^3 (1.0-4.0); LYMPHOCYTES % (AUTO) 30 % (12-44); MEAN CORPUSCULAR HEMOGLOBIN 28 PG (25-34); MEAN CORPUSCULAR HGB CONC 33 G/DL (32-36); MEAN CORPUSCULAR VOLUME 84 FL (80-99); MEAN PLATELET VOLUME 11.8 FL (7.4-10.4); MONOCYTES # (AUTO) 0.8 X 10^3 (0.0-1.0); MONOCYTES % (AUTO) 10 % (0-12); NEUTROPHILS # (AUTO) 4.4 X 10^3 (1.8-7.8); NEUTROPHILS % (AUTO) 59 % (42-75); PLATELET COUNT 87 10^3/uL (130-400); RED BLOOD COUNT 5.91 10^6/uL (4.35-5.85); WHITE BLOOD COUNT 7.4 10^3/uL (4.3-11.0)
[2016-10-24 06:40] LABS: ALANINE AMINOTRANSFERASE 364 U/L (0-55); ANION GAP 12 MMOL/L (5-14); ASPARTATE AMINO TRANSFERASE 122 U/L (5-34); BILIRUBIN,TOTAL 2.5 MG/DL (0.1-1.0); BLOOD UREA NITROGEN 14 MG/DL (7-18); BUN/CREATININE RATIO 20; CALCIUM 8.3 MG/DL (8.5-10.1); CARBON DIOXIDE 25 MMOL/L (21-32); CHLORIDE 102 MMOL/L (98-107); CREATININE SERUM 0.69 MG/DL (0.60-1.30); GFR ESTIMATED > 60; GLUCOSE 83 MG/DL (70-105); MAGNESIUM 1.8 MG/DL (1.8-2.4); PHOSPHORUS 2.6 MG/DL (2.3-4.7); POTASSIUM 3.6 MMOL/L (3.6-5.0); SODIUM 139 MMOL/L (135-145); TOTAL PROTEIN 6.1 G/DL (6.4-8.2)
[2016-10-24 06:49] LABS: BAND NEUTROPHILS 2 %; BASOPHILS % (MANUAL) 0 %; EOSINOPHILS % (MANUAL) 1 %; LYMPHOCYTES % (MANUAL) 11 %; NEUTROPHILS % (MANUAL) 59 %; REACTIVE LYMPHOCYTES 15 %
[2016-10-24 06:50] LABS: ANISOCYTOSIS MODERATE; HYPOCHROMASIA SLIGHT; POIKILOCYTOSIS SLIGHT; TARGET CELLS SLIGHT
[2016-10-24] MEDS: RT-ALBUTEROL SULF 2.5 MG/3 ML PRE-MIX VIAL INH SCH ×4 (07:04→18:57)
[2016-10-24] MEDS: LACTULOSE SYRUP 10GM/15ML (ENULOSE) 30ML UDC PO SCH ×2 (08:04→20:00)
[2016-10-24] MEDS: OSELTAMIVIR 75 MG (TAMIFLU) BOX OF 10 PO SCH ×2 (08:05→20:00)
[2016-10-24] MEDS: ENOXAPARIN 40 MG/0.4 ML (LOVENOX) SYR SC SCH (08:05)
--- NOTE | 2016-10-24 08:10 | Pulmonary Progress Note ---
Subjective Subjective/Events-last exam Pt sitting up in chair and states he feels much better. He is not requiring oxygen and does not wear at home. He denies shortness of breath. He denies f/ns/ c. He does have a productive cough. He reports good appetite. He denies pain. He would like to go home tomorrow. Exam Exam Vital Signs Date Time Temp Pulse Resp B/P Pulse Ox O2 Delivery O2 Flow Rate FiO2 10/24/16 07:05 92 10/24/16 04:10 97.6 80 18 124/86 96 Room Air 10/24/16 02:02 97.7 82 22 119/80 98 Room Air 10/23/16 20:04 96 10/23/16 20:00 2.00 10/23/16 15:55 98.0 80 20 108/65 96 Room Air 10/23/16 14:43 96 10/23/16 13:00 2.00 10/23/16 12:00 98.0 80 18 111/66 Room Air 10/23/16 12:00 95 10/23/16 11:09 95 I & O 10/24/16 07:00 Intake Total 1680 ml Output Total 400 ml Balance 1280 ml General Appearance: No Apparent Distress WD/WN Chronically ill HEENT: PERRL/EOMI Normal ENT Inspection Pharynx Normal Neck: Full Range of Motion Normal Inspection Non Tender Supple Respiratory: Chest Non Tender No Respiratory Distress Crackles (LLL) Decreased Breath Sounds (LLL) Cardiovascular: No Edema No Gallop No JVD No Murmur Normal Peripheral Pulses Irregularly Irregular Capillary Refill: Less Than 3 Seconds Extremity: Normal Capillary Refill Normal Inspection Normal Range of Motion Non Tender No Calf Tenderness Swelling Neurologic/Psychiatric: Alert Oriented x3 No Motor/Sensory Deficits Normal Mood/Affect Skin: Normal Color Warm/Dry Lymphatic: No Adenopathy Results Lab Laboratory Tests 10/23/16 03:40 10/24/16 05:30 Assessment/Plan Assessment/Plan Acute influenza A w/sepsis Pneumonia -Continue Abx Elevated liver enzymes USG reveals small amount of ascites -hepatitis panel non-reactive hx of Coagulopathy Atrial Fibrillation Wide complex tachycardia hx Acute on Chronic Systolic CHF Ex EF 20% Diabetes Mellitus Type 2 Mild tachypnea on exam checking ABG CAD previous CABG Clinical Quality Measures DVT/VTE Risk/Contraindication: Risk Factor Score Per Nursin RFS Level Per Nursing on Admit: 2=Moderate KIM TROY APRN Oct 24, 2016 08:10 KIM TROY APRN Oct 24, 2016 08:10
--- NOTE | 2016-10-24 10:06 | Physical Therapy Daily Note ---
PT Daily Note-Current Subjective Patient in bed pre tx, agrees to PT, pleasant and cooperative. No complaints of pain. Appearance Patient in sitting EOB post tx with nurse call, phone, tray, all needs met. Mental Status Patient Orientation: Normal For Age Transfers Functional [place] Measure 0=Not Assessed/NA 4=Minimal Assistance 1=Total Assistance 5=Supervision or Setup 2=Maximal Assistance 6=Modified [place] 3=Moderate Assistance 7=Complete IndependenceIRFPAI Quality Coding Scale 6 Independent with activity with or without an assistive device 5 Patient requires set up or clean up by helper. Patient completes activity by themselves 4 Supervision or touching assist (CGA). [place] provide cues , steadying assist 3 The helper provides less than half the effort to complete the activity 2 The helper provides more than half the effort to complete the activity 1 Dependent. The helper does all the effort to complete an activity 7 Patient refused to complete or attempt activity 9 The patient did not perform the activity before the current illness or injury 88 Not attempted due to Medical conditions or safety concerns Transfers (B, C, W/C) (FIM): 5 Scootin Rollin Supine to/from Sit: 6 Sit to/from Stand: 5 Gait Training Gait (FIM): 4 Distance: 200' Gait Level of Assist: 4 (CGA) Gait Persons Needed: 1 Gait Assistive Device: FWW Patient needs cues for safety and to keep walker closer to him. He is fairly kyphotic. Exercises Seated Therapy Exercises: Ankle pumps, Long arc quads Seated Reps: 20 Treatments bed mobility and transfers, ambulation, functional strengthening Assessment Current Status: Fair Progress Patient joi well, no pain with tx. PT Short Term Goals Short Term Goals Time Frame: Oct 26, 2016 Transfers (B,C,W/C) (FIM): 6 Gait (FIM): 6 Distance (FIM): 3=150 ft Gait Level of Assist: 6 Gait Assistive Device: None, FWW PT Plan Problem List Problem List: Activity Tolerance, Functional Strength, Safety, Balance, Gait, Transfer Treatment/Plan Treatment Plan: Continue Plan of Care Treatment Plan: Education, Functional Activity [place], Functional Strength, Gait , Safety, Therapeutic Exercise, Transfers Treatment Duration: Oct 26, 2016 Visits Per Week: 4 Safety Risks/Education Patient Education: Gait Training, Transfer Techniques, Safety Issues Teaching Recipient: Patient Teaching Methods: Demonstration, Discussion Response to Teaching: Reinforcement Needed Time/GCodes Time In: 940 Time Out: 955 Total Billed Treatment Time: 15 Total Billed Treatment 1 visit GT 15 min FLETCHER BEDOYA PT Oct 24, 2016 10:06
--- NOTE | 2016-10-24 10:29 | Progress Note-Cardiology ---
Cardiology SOAP Progress Note Subjective: Sitting up in bed. States he feels much better today. Still c/o some weakness. C/O occ productive cough. No c/o CP, palpitations, syncope or near syncope. Objective: I&O/Vital Signs Vital Sign - Last 12Hours 10/24/16 10/24/16 10/24/16 10/24/16 07:05 08:05 10:29 12:52 Temp 97.6 96.7 Pulse 80 Resp 20 B/P 118/71 Pulse Ox 92 93 94 O2 Delivery Room Air 10/24/16 10/24/16 14:14 16:00 Temp 97.8 Pulse 80 Resp 20 B/P 121/74 Pulse Ox 95 95 O2 Delivery Room Air Intake and Output 10/24/16 00:00 Intake Total 1060 ml Output Total 200 ml Balance 860 ml Weight (Pounds): 187 Weight (Ounces): 0.0 Weight (Calculated Kilograms): 84.079426 Constitutional: appears stated ageNo apparent distress, well-developed well- nourished Respiratory: wheezing (scattered exp) other (coarse lung sounds lower lobes bilat) Cardiovascular: regular rate-rhythmNo JVD, S1 and S2 systolic murmur Gastrointestional: No tender, soft roundNo spleenomegaly Extremities: No clubbing, No cyanosis, significant edema (mild bilat LE edema) Neurologic/Psychiatric: alert oriented x 3 power is 5/5 both on sides Skin: No rash, No ulcerations Results/Procedures: Labs Laboratory Tests 10/23/16 21:39: Glucometer 114H 10/24/16 05:30: Alanine Aminotransferase (ALT/SGPT) 364H, Albumin 3.0L, Alkaline Phosphatase 99 , Anion Gap 12, Anisocytosis MODERATE, Aspartate Amino Transf (AST/SGOT) 122H, BUN/Creatinine Ratio 20, Band Neutrophils 2, Basophils # (Auto) 0.0, Basophils % (Manual) 0, Basophils (%) (Auto) 1, Blood Urea Nitrogen 14, Calcium Level 8.3L , Carbon Dioxide Level 25, Chloride Level 102, Creatinine 0.69, Elliptocytes SLIGHT, Eosinophils # (Auto) 0.0, Eosinophils % (Manual) 1, Eosinophils (%) ( Auto) 0, Estimat Glomerular Filtration Rate > 60, Glucose Level 83, Hematocrit 50, Hemoglobin 16.5, Hypochromasia SLIGHT, Lymphocytes # (Auto) 2.2, Lymphocytes % (Manual) 11, Lymphocytes (%) (Auto) 30, Magnesium Level 1.8, Mean Corpuscular Hemoglobin 28, Mean Corpuscular Hemoglobin Concent 33, Mean Corpuscular Volume 84, Mean Platelet Volume 11.8H, Monocytes # (Auto) 0.8, Monocytes % (Manual) 12, Monocytes (%) (Auto) 10, Neutrophils # (Auto) 4.4, Neutrophils % (Manual) 59, Neutrophils (%) (Auto) 59, Phosphorus Level 2.6, Platelet Count 87L, Poikilocytosis SLIGHT, Potassium Level 3.6, Reactive Lymphocytes 15, Red Blood Count 5.91H, Red Cell Distribution Width 22.0H, Sodium Level 139, Target Cells SLIGHT, Total Bilirubin 2.5H, Total Protein 6.1L , White Blood Count 7.4 10/24/16 09:35: Glucometer 127H 10/24/16 15:59: Glucometer 156H Microbiology 10/21/16 Blood Culture - Preliminary, Resulted No growth 10/21/16 MRSA Screen - Final, Complete MRSA not isolated 10/21/16 Urine Culture - Final, Complete NO GROWTH A/P: Assessment: Sepsis with multi-organ involvement and hepatic insufficiency - liver enzymes improving (+) Influenza A - medical services managing Chronic systolic CHF - treat with IV diuretics, as needed Persistent a fib with poor vent rate control, treated with AVN ablation in mid Sep 2015 at [facility] by Dr Hernández S/p single ch ICD implanted on 02/07/16, upgraded to CONVERTER SUPERVISOR-D by Dr Hernández in Sep 2015 , functioning normally on interrogation of 10/10/16 Episode of wide complex tachycardia during hospitalization of January 20, 2016 OAC with Eliquis - currently being withheld d/t coagulopathy d/t hepatic insufficiency Documented episode of NSVT during hospitalization of January 21, 2016 Slow atrial flutter, newly diagnosed on 04/17/15, with 2:1 AV conduction. S/p ext elec cardioversion to NSR on 04/19/15. S/P ablation for atrial flutter by Dr. Hernández at [facility] by Dr. Hernández on 06/09/15 Ischemic Cardiomyopathy. LVEF 35-40%, based on TTE and CROW of 04/18 and 04/19/15. LVEF 22% on MPI of 05/19/15. LVEF 33% on MUGA of 05/24/15. LVEF 25% on echo of 08/17 CAD with history of [facility] at [facility] 5[facility]6 years ago. Details of CABG unavailable. MPI of 05/19/15 did not show ischemia or infarction but there was LV enlargement and LVEF was 22% Echocardiogram of April 13, 2016 showed marked impairment of LV systolic function iwth an ejection fraction of 20%. Global ypokinesis of the LV, more marked in the anteroseptal wall. Mod sever MR and TR. Mild to mod mitral anular calcification and aortic valve sclerosis without evidence of significant valvular stenosis. PASP estimated to approx 40mmHg. 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 Liver enzymes are trending down Acute on chronic systolic CHF we will treat with diuretics as needed - being managed by pulmonary services Monitor lab closely. D/t acute hepatic failure with coagulopathy at admission (INR >2.5) we are holding off on OAC at this time. Thrombocytopenia (somewhat better today) - being managed by medical services Sepsis being managed by medical services Generalized weakness Spoke with Dr. Roper Physician Assessment Physician Assessment Lungs: good air entry Cor: reg Mild bilat leg swelling A&R * As documented in our note above * I spoke with him and answered questions EDEL CHUN PROJECT CONTROL OFFICER Oct 24, 2016 10:29 JESICA PATRICK MD FACP FAC CCDS Oct 24, 2016 17:30
[2016-10-24] MEDS ORDERED: guaiFENesin/CODEINE (ROBITUSSIN AC) 10ML UDC PO PRN (10:45)
[2016-10-24] MEDS: inSUlin ASPART (NovoLOG) 1 UNIT/0.01 ML (CHARGE PER UNIT) SC SCH ×3 (11:00→21:00)
--- NOTE | 2016-10-24 11:12 | Progress Note-Hospitalist ---
Progress Note HPI/CC on Admission CC: Fever with cough HPI: This is a 76-year-old white male clinic patient a [facility] with a past medical history of atrial fibrillation on Eliquis and diabetes mellitus the presents to the ICU after admitted due to fever and cough with an acute influenza a diagnosis with possible left lower lobe pneumonia versus effusion. Cardiology has been consulted for atrial fibrillation and he has a long-standing history of suppressed systolic function due to ischemic cardiomyopathy. At this current time patient is mildly tachypneic but not in any respiratory distress but I am according ABG and I did speak to cardiology regarding the need for gentle IV fluids due to elevated lactic acid. Ultrasound of the liver showed mild ascites and that was obtained due to the elevated liver enzymes and he had not been aware of any liver problems before. He denies any heavy alcohol use and he is vague on when he did have alcohol exposure but it appears to be a remote history. Acute viral hepatitis panel is pending at this current time but doesn't have any risk like IV drug abuse or tattoos that would pose any risk for that so unsure the etiology. The coagulopathy is significant indicating significant cirrhosis since his INR is 2.8 and platelet count is decreased. I did narrow the antibiotic spectrum with discontinuation of vancomycin but maintained Levaquin and Zosyn. Progress Notes/Assess & Plan Date Seen 10/24/16 Admission Dx/Process Acute influenza A w/sepsis and elevated lactic acid Pleural effusion left questionable pneumonia so covering empirically Elevated liver enzymes USG reveals small amount of ascites vital hepatitis panel pending Coagulopathy Atrial Fibrillation Wide complex tachycardia hx Acute on Chronic Systolic CHF Ex Diabetes Mellitus Type 2 Mild tachypnea on exam checking ABG CAD previous CABG Diagonsis/Assessment & Plan cashier manager: RN states that pt is being evaluated for move to in-pt rehab. Overall pt is doing very well. Pt has a cough. Pt does not have sliding scale ordered, but sugars are stable. Sugars ere 127 but on fasting was at 83. Patient Interview: Pt states that he feels much better today. Dr. Collins discusses plans for in-pt rehab with pt, but pt does not want to go to rehab. Physical exam stable. Pt states that he is having regular BMs. Pt does not have a walker at home, and does not wear O2 at home. Pt has been ambulating with walker today. Pt has DM. Scribed by Damián Jara under the direct supervision of Dr. Collins. No fever, vital signs stable, pleasant, improved, chronically ill Irregular rate and rhythm, clear to auscultation in the upper lobes but wheezing in the lower lobes and improved tachypnea from yesterday Trace edema lower extremities with venous stasis changes with vascular changes Laboratory Tests 10/24/16 05:30 Assessment: Acute influenza A w/sepsis and elevated lactic acid Pleural effusion with left pneumonia so covering empirically Elevated liver enzymes USG reveals small amount of ascites viral hepatitis panel pending and ammonia was elevated at 44 now much improved Coagulopathy Atrial Fibrillation Wide complex tachycardia hx Acute on Chronic Systolic CHF Ex Diabetes Mellitus Type 2 Mild tachypnea now resolved CAD previous CABG Constipation Plan: Continue empiric broad-spectrum antibiotics of Zosyn Evaluate acute viral hepatitis panel s/p Gentle IV fluids due to elevated lactic acid Consult pulmonology appreciated Appreciate cardiology input for atrial fibrillation Monitor labs Monitor closely PT/OT IRU? DC tomorrow if declines IRU CAMMY COLLINS DO Oct 24, 2016 11:12
[2016-10-24 12:52] VITALS: BP 118/71
--- NOTE | 2016-10-24 14:35 | Occupational Ther Daily Note ---
OT Current Status-Daily Note Subjective Pt in bed, agrees to treatment. Pt has no c/o pain. Mental Status/Objective Functional [place] Measure 0=Not Assessed/NA 4=Minimal Assistance 1=Total Assistance 5=Supervision or Setup 2=Maximal Assistance 6=Modified [place] 3=Moderate Assistance 7=Complete [place] Attachments: IV ADL-Treatment Pt supine to sit with modified independence. Pt demonstrates ability to doff/ don socks without assistance while sitting EOB. Sit to stand with SBA. Gait to restroom with FWW. Pt demonstrates ability to perform toilet transfer with SBA using grab bars for balance. Stood at sink to brush teeth with SBA. Pt stood at toilet to urinate with SBA. Washed hands at sink with SBA. Pt transferred to bed with SBA with FWW. Sit to supine with modified independence. Pt states he hopes to d/c home tomorrow, states spouse will be available to assist if needed. Pt in bed with needs met after session. Grooming (FIM): 5 Toileting (FIM): 5 Toilet/Commode Transfer (FIM): 5 OT Short Term Goals Short Term Goals Transfers (B,C,W/C) (FIM): 6 1=Demonstrate adherence to instructed precautions during ADL tasks. 2=Patient will verbalize/demonstrate understanding of assistive devices/ modifications for ADL. 3=Patient will improve strength/tolerance for activity to enable patient to perform ADL's. OT Prison Goals Echo Vascular Tech Goals Time Frame: Oct 30, 2016 Eating (FIM): 6 Grooming(FIM): 6 Bathing(FIM): 6 Upper Body Dressing(FIM): 6 Lower Body Dressing(FIM): 6 Toileting(FIM): 6 Toilet/Commode Transfer(FIM): 6 Shower Transfer(FIM): 6 Additional Goals: 2-Verbalize Understanding, 3-ImproveStrength/Fele[place] 1=Demonstrate adherence to instructed precautions during ADL tasks. 2=Patient will verbalize/demonstrate understanding of assistive devices/ modifications for ADL. 3=Patient will improve strength/tolerance for activity to enable patient to perform ADL's. OT Education/Plan Problem List/Assessment Pt would benefit from skilled OT to increase his activity tolerance and independence in basic ADLs to allow him to safely return to his home with his . Discharge Recommendations Plan/Recommendations: Continue POC Treatment Plan/Plan of Care Patient would benefit from OT for education, treatment and training to promote independence in ADL's, mobility, safety and/or upper extremity function for ADL' s. Plan of Care: ADL Retraining, UE Funct Exercise/Act Treatment Duration: Oct 30, 2016 Visits Per Week: 5 Agreement: Yes Rehab Potential: Good Time/GCodes Start Time: 14:00 Stop Time: 14:14 Total Time Billed (hr/min): 14 Billed Treatment Time 1 visit, ADL(14minutes) RUDY NUNEZ OT Oct 24, 2016 14:35
[2016-10-24 16:00] VITALS: BP 121/74
[2016-10-24 20:00] VITALS: BP 129/80
[2016-10-25] VITALS: BP 121/75
[2016-10-25] MEDS: PIPERACILLIN/TAZOBACTAM 4.5 GM/NS100 ML IVPB IV SCH ×2 (03:21)
[2016-10-25 05:14] LABS: BASOPHILS % (AUTO) 1 % (0-10); EOSINOPHILS % (AUTO) 0 % (0-10); LYMPHOCYTES % (AUTO) 29 % (12-44); MEAN CORPUSCULAR HEMOGLOBIN 28 PG (25-34); MEAN CORPUSCULAR HGB CONC 33 G/DL (32-36); MEAN CORPUSCULAR VOLUME 84 FL (80-99); MEAN PLATELET VOLUME 10.8 FL (7.4-10.4); MONOCYTES # (AUTO) 0.9 X 10^3 (0.0-1.0); MONOCYTES % (AUTO) 13 % (0-12); NEUTROPHILS % (AUTO) 58 % (42-75); PLATELET COUNT 93 10^3/uL (130-400); RED BLOOD COUNT 5.83 10^6/uL (4.35-5.85); RED CELL DISTRIBUTION WIDTH 22.1 % (10.0-14.5); WHITE BLOOD COUNT 6.9 10^3/uL (4.3-11.0)
[2016-10-25 05:33] LABS: ANION GAP 10 MMOL/L (5-14); BLOOD UREA NITROGEN 10 MG/DL (7-18); BUN/CREATININE RATIO 14; CALCIUM 8.6 MG/DL (8.5-10.1); CARBON DIOXIDE 28 MMOL/L (21-32); CHLORIDE 101 MMOL/L (98-107); CREATININE SERUM 0.73 MG/DL (0.60-1.30); GFR ESTIMATED > 60; GLUCOSE 94 MG/DL (70-105); MAGNESIUM 1.7 MG/DL (1.8-2.4); POTASSIUM 3.8 MMOL/L (3.6-5.0); SODIUM 139 MMOL/L (135-145)
[2016-10-25] MEDS: CATHETER FLUSH 10 ML SYR IV SCH ×2 (06:00→14:00)
[2016-10-25] MEDS: inSUlin ASPART (NovoLOG) 1 UNIT/0.01 ML (CHARGE PER UNIT) SC SCH ×2 (06:00→11:00)
[2016-10-25] MEDS: RT-ALBUTEROL SULF 2.5 MG/3 ML PRE-MIX VIAL INH SCH ×3 (06:55→13:53)
[2016-10-25 08:00] VITALS: BP 124/77
[2016-10-25] MEDS: OSELTAMIVIR 75 MG (TAMIFLU) BOX OF 10 PO SCH (08:36)
[2016-10-25] MEDS: LACTULOSE SYRUP 10GM/15ML (ENULOSE) 30ML UDC PO SCH (08:36)
[2016-10-25] MEDS: ENOXAPARIN 40 MG/0.4 ML (LOVENOX) SYR SC SCH (08:36)
[2016-10-25 09:14] LABS: ALBUMIN 2.9 G/DL (3.2-4.5); BILIRUBIN,DIRECT 1.7 MG/DL (0.0-0.3); BILIRUBIN,INDIRECT 1.1 MG/DL; BILIRUBIN,TOTAL 2.8 MG/DL (0.1-1.0); TOTAL PROTEIN 6.2 G/DL (6.4-8.2)
--- NOTE | 2016-10-25 09:45 | Pulmonary Progress Note ---
Subjective Subjective/Events-last exam PT is doing very well today. He reports he would like to go home today. He denies being short of breath. He is not requiring oxygen. Exam Exam Vital Signs Date Time Temp Pulse Resp B/P Pulse Ox O2 Delivery O2 Flow Rate FiO2 10/25/16 08:00 94 2.00 10/25/16 08:00 97.4 80 20 124/77 94 Room Air 10/25/16 06:56 92 10/25/16 00:00 97.3 80 22 121/75 95 Room Air 10/24/16 20:00 96.7 81 22 129/80 94 Room Air 10/24/16 18:57 95 10/24/16 16:00 97.8 80 20 121/74 95 Room Air 10/24/16 14:14 95 10/24/16 12:52 96.7 80 20 118/71 94 Room Air 10/24/16 10:29 93 I & O 10/25/16 07:00 Intake Total 2210 ml Output Total 545 ml Balance 1665 ml General Appearance: No Apparent Distress WD/WN HEENT: PERRL/EOMI Normal ENT Inspection Pharynx Normal Neck: Full Range of Motion Normal Inspection Non Tender Supple Respiratory: No Accessory Muscle Use No Respiratory Distress Decreased Breath Sounds Cardiovascular: Regular Rate, Rhythm No Edema No Gallop Capillary Refill: Less Than 3 Seconds Gastrointestinal: normal bowel sounds non tender soft Extremity: Normal Capillary Refill Normal Inspection Normal Range of Motion Non Tender No Calf Tenderness Swelling Neurologic/Psychiatric: Alert Oriented x3 No Motor/Sensory Deficits Normal Mood/Affect technical support analyst II-XII Norm as Tested Skin: Normal Color Warm/Dry Lymphatic: No Adenopathy Results Lab Laboratory Tests 10/24/16 05:30 10/25/16 04:53 Assessment/Plan Assessment/Plan Acute influenza A w/sepsis Pneumonia -Continue Abx Elevated liver enzymes USG reveals small amount of ascites -hepatitis panel non-reactive hx of Coagulopathy Atrial Fibrillation Wide complex tachycardia hx Acute on Chronic Systolic CHF Ex EF 20% Diabetes Mellitus Type 2 Mild tachypnea on exam checking ABG CAD previous CABG Clinical Quality Measures DVT/VTE Risk/Contraindication: Risk Factor Score Per Nursin RFS Level Per Nursing on Admit: 2=Moderate KIM TROY APRN Oct 25, 2016 09:45
[2016-10-25] MEDS ORDERED: APIXABAN 2.5 MG (ELIQUIS) TABLET PO NR (10:15)
[2016-10-25] MEDS ORDERED: FUROSEMIDE 40 MG (LASIX) TAB PO NR (10:15)
--- NOTE | 2016-10-25 10:22 | Progress Note-Cardiology ---
Cardiology SOAP Progress Note Subjective: Sitting up on the side of the bed. Wants to go home. C/O LE edema. No c/o CP , palpitations, dyspnea, syncope or near syncope. Objective: I&O/Vital Signs Vital Sign - Last 12Hours 10/25/16 10/25/16 10/25/16 10/25/16 00:00 06:56 08:00 08:00 Temp 97.3 97.4 Pulse 80 80 Resp 22 20 B/P 121/75 124/77 Pulse Ox 95 92 94 94 O2 Delivery Room Air Room Air O2 Flow Rate 2.00 10/25/16 10:19 Pulse Ox 91 Intake and Output 10/25/16 00:00 Intake Total 1760 ml Output Total 545 ml Balance 1215 ml Weight (Pounds): 187 Weight (Ounces): 0.0 Weight (Calculated Kilograms): 84.370898 Constitutional: appears stated ageNo apparent distress, well-developed well- nourished Respiratory: wheezing (scattered exp) other (coarse lung sounds lower lobes bilat) Cardiovascular: regular rate-rhythmNo JVD, S1 and S2 systolic murmur Gastrointestional: No tender, soft roundNo spleenomegaly Extremities: No clubbing, No cyanosis, significant edema (mod bilat LE edema) Neurologic/Psychiatric: alert oriented x 3 power is 5/5 both on sides Skin: No rash, No ulcerations Results/Procedures: Labs Laboratory Tests 10/24/16 15:59: Glucometer 156H 10/24/16 21:16: Glucometer 115H 10/25/16 04:53: Alanine Aminotransferase (ALT/SGPT) 293H, Albumin 2.9L, Alkaline Phosphatase 94 , Anion Gap 10, Aspartate Amino Transf (AST/SGOT) 84H, BUN/Creatinine Ratio 14, Basophils # (Auto) 0.0, Basophils (%) (Auto) 1, Blood Urea Nitrogen 10, Calcium Level 8.6, Carbon Dioxide Level 28, Chloride Level 101, Creatinine 0.73, Direct Bilirubin 1.7H, Eosinophils # (Auto) 0.0, Eosinophils (%) (Auto) 0, Estimat Glomerular Filtration Rate > 60, Glucose Level 94, Hematocrit 49, Hemoglobin 16.2, Indirect Bilirubin 1.1, Lymphocytes # (Auto) 2.0, Lymphocytes (%) (Auto) 29, Magnesium Level 1.7L, Mean Corpuscular Hemoglobin 28, Mean Corpuscular Hemoglobin Concent 33, Mean Corpuscular Volume 84, Mean Platelet Volume 10.8H, Monocytes # (Auto) 0.9, Monocytes (%) (Auto) 13H, Neutrophils # (Auto) 4.0, Neutrophils (%) (Auto) 58, Phosphorus Level 3.0, Platelet Count 93L, Potassium Level 3.8, Red Blood Count 5.83, Red Cell Distribution Width 22.1H, Sodium Level 139, Total Bilirubin 2.8H, Total Protein 6.2L, White Blood Count 6.9 Microbiology 10/21/16 Blood Culture - Preliminary, Resulted No growth 10/21/16 MRSA Screen - Final, Complete MRSA not isolated 10/21/16 Urine Culture - Final, Complete NO GROWTH A/P: Assessment: Sepsis with multi-organ involvement and hepatic insufficiency - liver enzymes improving (+) Influenza A - medical services managing Acute on Chronic systolic CHF Persistent a fib with poor vent rate control, treated with AVN ablation in mid Sep 2015 at [facility] by Dr Hernández S/p single ch ICD implanted on 02/07/16, upgraded to [employer] by Dr Hernández in Sep 2015 , functioning normally on interrogation of 10/10/16 Episode of wide complex tachycardia during hospitalization of January 20, 2016 OAC with Eliquis Documented episode of NSVT during hospitalization of January 21, 2016 Slow atrial flutter, newly diagnosed on 04/17/15, with 2:1 AV conduction. S/p ext elec cardioversion to NSR on 04/19/15. S/P ablation for atrial flutter by Dr. Hernández at [facility] by Dr. Hernández on 06/09/15 Ischemic Cardiomyopathy. LVEF 35-40%, based on TTE and CROW of 04/18 and 04/19/15. LVEF 22% on MPI of 05/19/15. LVEF 33% on MUGA of 05/24/15. LVEF 25% on echo of 08/17 CAD with history of CABGx5 at the [facility] 5-6 years ago. Details of CABG unavailable. MPI of 05/19/15 did not show ischemia or infarction but there was LV enlargement and LVEF was 22% Echocardiogram of April 13, 2016 showed marked impairment of LV systolic function iwth an ejection fraction of 20%. Global ypokinesis of the LV, more marked in the anteroseptal wall. Mod sever MR and TR. Mild to mod mitral anular calcification and aortic valve sclerosis without evidence of significant valvular stenosis. PASP estimated to approx 40mmHg. 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 Liver enzymes are trending down Acute on chronic systolic CHF - resume diuretics Monitor lab closely. Complex issue. He has h/o a-fib which places him at risk for CVA. However d/t hypercoagulation, elevated liver enzymes and new onset of thrombocytopenia OAC was being withheld. However his liver enzymes are improving and his INR is improving. We will restart his OAC, but at a reduced dose if OK with medical services. Advise close outpt f/u Advise close outpt f/u on lab Physician Assessment Physician Assessment Lungs: good bilat air entry Cor: reg Bilat mod pitting edema of the legs A&R * As documented in our note above * I spoke with him, answered questions, and advised outpatient f/u EDEL CHUN Oct 25, 2016 10:22 JESICA PATRICK MD FACP FAC CCDS Oct 25, 2016 11:24
--- NOTE | 2016-10-25 10:51 | Physical Therapy Daily Note ---
PT Daily Note-Current Subjective Patient is agreeable to participate with PT. Pain Numeric Pain Scale: 0-No Pain Location: No Pain Reported Mental Status Patient Orientation: Normal For Age Transfers Functional [place] Measure 0=Not Assessed/NA 4=Minimal Assistance 1=Total Assistance 5=Supervision or Setup 2=Maximal Assistance 6=Modified [place] 3=Moderate Assistance 7=Complete IndependenceIRFPAI Quality Coding Scale 6 Independent with activity with or without an assistive device 5 Patient requires set up or clean up by helper. Patient completes activity by themselves 4 Supervision or touching assist (CGA). [place] provide cues , steadying assist 3 The helper provides less than half the effort to complete the activity 2 The helper provides more than half the effort to complete the activity 1 Dependent. The helper does all the effort to complete an activity 7 Patient refused to complete or attempt activity 9 The patient did not perform the activity before the current illness or injury 88 Not attempted due to Medical conditions or safety concerns Transfers (B, C, W/C) (FIM): 6 Scootin Supine to/from Sit: 6 Sit to/from Stand: 6 Gait Training Gait (FIM): 6 Distance (FIM): 3=150 ft Distance: 300' x 2 Gait Level of Assist: 6 Gait Assistive Device: FWW kyphotic posture with extended UE's with skilled verbal instruction for body placement in FWW Stair Training Stair Training: Handrails/: 1 handrail Stairs (FIM): 2 #of Steps: 4 Stairs: Pattern: Step to Level of Assist: 5 Assessment Patient tolerated treatment well and desires to return to home on this date. Daughter in law and patient discussed with PT POC and agrees to home health upon dismissal. PT Short Term Goals Short Term Goals Time Frame: Oct 26, 2016 Transfers (B,C,W/C) (FIM): 6 Gait (FIM): 6 Distance (FIM): 3=150 ft Gait Level of Assist: 6 Gait Assistive Device: None, FWW PT Plan Treatment/Plan Treatment Plan: Discontinue PT, goals met Treatment Plan: Education, Functional Activity [place], Functional Strength, Gait , Safety, Therapeutic Exercise, Transfers Treatment Duration: Oct 26, 2016 Visits Per Week: 4 Time/GCodes Time In: 915 Time Out: 925 Total Billed Treatment Time: 10 Total Billed Treatment 1 visit FA 10 min ANITA OLVERA PT Oct 25, 2016 10:51
--- NOTE | 2016-10-25 11:27 | Discharge Summary-Hospitalist ---
Diagnosis/Chief Complaint Date of Admission Oct 21, 2016 at 22:14 Date of Discharge Discharge Date: Admission Diagnosis Acute influenza A w/sepsis and elevated lactic acid Pleural effusion left questionable pneumonia so covering empirically Elevated liver enzymes USG reveals small amount of ascites vital hepatitis panel pending Coagulopathy Atrial Fibrillation Wide complex tachycardia hx Acute on Chronic Systolic CHF Ex Diabetes Mellitus Type 2 Mild tachypnea on exam checking ABG CAD previous CABG Discharge Diagnosis Assessment: Acute influenza A w/sepsis and elevated lactic acid Pleural effusion with left pneumonia so covering empirically Elevated liver enzymes USG reveals small amount of ascites viral hepatitis panel pending and ammonia was elevated at 44 now much improved Coagulopathy Atrial Fibrillation Wide complex tachycardia hx Acute on Chronic Systolic CHF Ex Diabetes Mellitus Type 2 Mild tachypnea now resolved CAD previous CABG 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 Overall pt is doing very well. Pt has a cough. Pt does not have sliding scale ordered, but sugars are stable. Sugars ere 127 but on fasting was at 83. Patient Interview: Pt states that he feels much better today. Dr. Collins discusses plans for in-pt rehab with pt, but pt does not want to go to rehab. Physical exam stable. Pt states that he is having regular BMs. Pt does not have a walker at home, and does not wear O2 at home. Pt has been ambulating with walker today. Pt has DM. Scribed by Damián Jara under the direct supervision of Dr. Collins. No fever, vital signs stable, pleasant, improved, chronically ill Irregular rate and rhythm, clear to auscultation in the upper lobes but wheezing in the lower lobes and improved tachypnea from yesterday Trace edema lower extremities with venous stasis changes with vascular changes Laboratory Tests 10/24/16 05:30 Assessment: Acute influenza A w/sepsis and elevated lactic acid Pleural effusion with left pneumonia so covering empirically Elevated liver enzymes USG reveals small amount of ascites viral hepatitis panel pending and ammonia was elevated at 44 now much improved Coagulopathy Atrial Fibrillation Wide complex tachycardia hx Acute on Chronic Systolic CHF Ex Diabetes Mellitus Type 2 Mild tachypnea now resolved CAD previous CABG Constipation Plan: Continue empiric broad-spectrum antibiotics of Zosyn Evaluate acute viral hepatitis panel s/p Gentle IV fluids due to elevated lactic acid Consult pulmonology appreciated Appreciate cardiology input for atrial fibrillation Monitor labs Monitor closely PT/OT IRU? DC tomorrow if declines IRU Reason Hospital Visit/Course CC: Fever with cough HPI: This is a 76-year-old white male clinic patient a [facility] with a past medical history of atrial fibrillation on Eliquis and diabetes mellitus the presents to the ICU after admitted due to fever and cough with an acute influenza a diagnosis with possible left lower lobe pneumonia versus effusion. Cardiology has been consulted for atrial fibrillation and he has a long-standing history of suppressed systolic function due to ischemic cardiomyopathy. At this current time patient is mildly tachypneic but not in any respiratory distress but I am according ABG and I did speak to cardiology regarding the need for gentle IV fluids due to elevated lactic acid. Ultrasound of the liver showed mild ascites and that was obtained due to the elevated liver enzymes and he had not been aware of any liver problems before. He denies any heavy alcohol use and he is vague on when he did have alcohol exposure but it appears to be a remote history. Acute viral hepatitis panel is pending at this current time but doesn't have any risk like IV drug abuse or tattoos that would pose any risk for that so unsure the etiology. The coagulopathy is significant indicating significant cirrhosis since his INR is 2.8 and platelet count is decreased. I did narrow the antibiotic spectrum with discontinuation of vancomycin but maintained Levaquin and Zosyn. Notes from 10/25/2016: Chart Review: No fever Vitals stable WBC 6.9 Platelets 93 and improving Hepatic profile not done so will check that Patient Interview: Pt states that he feels ready to go home, and feels strong enough. Pt does not have a walker. Pt denies need for pain meds. Physical exam stable. Pt states that he would like to have home health upon DC. Pt denies using cough syrup. Pt is unable to remember which physician he sees at [facility]. no fever vital signs stable, pleasant, oriented 3, much improved Irregular irregular rhythm, clear to auscultation bilaterally in the upper lobes but wheezing in the lower lobes much improved and good air movement compared to yesterday Trace edema Plan: Check if pt can DC with walker. Home health Hepatic profile check DC on Augmentin 875 BID for three more days. Scribed by Damián Jara under the direct supervision of Dr. Collins. Hospital course: Patient had a lengthy hospital course that started in the ICU due to severe respiratory insufficiency with elevated lactic acid and influenza A. Zosyn was initiated for empiric treatment of pneumonia with pleural effusion and patient tolerated that well. IV steroids were given for wheezing and pulmonary and cardiology consultation ensued monitoring the patient closely maintaining gentle IV fluids and monitoring due to critical illness. Overall patient improved maintained on Tamiflu for influenza a treatment along with antibiotics for pneumonia and participated in physical therapy and felt overall stronger and declined inpatient rehabilitation transfer. He was doing well was ready for discharge and will have close follow-up with [facility] and will be monitor closely maintain on Tamiflu until finish in 2 days and Augmentin for a total of 3 more days. Discharge Summary Discharge Physical Examination Allergies: Coded Allergies: No Known Drug Allergies (Unverified , 04/17/15) Vitals & I&Os Vital Signs Date Time Temp Pulse Resp B/P Pulse Ox O2 Delivery O2 Flow Rate FiO2 10/25/16 10:19 91 10/25/16 08:00 2.00 10/25/16 08:00 97.4 80 20 124/77 Room Air Hospital Course Labs (last 24 hrs) Laboratory Tests 10/24/16 15:59: Glucometer 156H 10/24/16 21:16: Glucometer 115H 10/25/16 04:53: Alanine Aminotransferase (ALT/SGPT) 293H, Albumin 2.9L, Alkaline Phosphatase 94 , Anion Gap 10, Aspartate Amino Transf (AST/SGOT) 84H, BUN/Creatinine Ratio 14, Basophils # (Auto) 0.0, Basophils (%) (Auto) 1, Blood Urea Nitrogen 10, Calcium Level 8.6, Carbon Dioxide Level 28, Chloride Level 101, Creatinine 0.73, Direct Bilirubin 1.7H, Eosinophils # (Auto) 0.0, Eosinophils (%) (Auto) 0, Estimat Glomerular Filtration Rate > 60, Glucose Level 94, Hematocrit 49, Hemoglobin 16.2, Indirect Bilirubin 1.1, Lymphocytes # (Auto) 2.0, Lymphocytes (%) (Auto) 29, Magnesium Level 1.7L, Mean Corpuscular Hemoglobin 28, Mean Corpuscular Hemoglobin Concent 33, Mean Corpuscular Volume 84, Mean Platelet Volume 10.8H, Monocytes # (Auto) 0.9, Monocytes (%) (Auto) 13H, Neutrophils # (Auto) 4.0, Neutrophils (%) (Auto) 58, Phosphorus Level 3.0, Platelet Count 93L, Potassium Level 3.8, Red Blood Count 5.83, Red Cell Distribution Width 22.1H, Sodium Level 139, Total Bilirubin 2.8H, Total Protein 6.2L, White Blood Count 6.9 10/25/16 10:55: Glucometer 126H Microbiology 10/21/16 Blood Culture - Preliminary, Resulted No growth 10/21/16 MRSA Screen - Final, Complete MRSA not isolated 10/21/16 Urine Culture - Final, Complete NO GROWTH Pending Labs Laboratory Tests 10/25/16 04:53: Alanine Aminotransferase (ALT/SGPT) 293, Albumin 2.9, Alkaline Phosphatase 94, Anion Gap 10, Aspartate Amino Transf (AST/SGOT) 84, BUN/Creatinine Ratio 14, Basophils # (Auto) 0.0, Basophils (%) (Auto) 1, Blood Urea Nitrogen 10, Calcium Level 8.6, Carbon Dioxide Level 28, Chloride Level 101, Creatinine 0.73, Direct Bilirubin 1.7, Eosinophils # (Auto) 0.0, Eosinophils (%) (Auto) 0, Estimat Glomerular Filtration Rate > 60, Glucose Level 94, Hematocrit 49, Hemoglobin 16.2, Indirect Bilirubin 1.1, Lymphocytes # (Auto) 2.0, Lymphocytes (%) (Auto) 29, Magnesium Level 1.7, Mean Corpuscular Hemoglobin 28, Mean Corpuscular Hemoglobin Concent 33, Mean Corpuscular Volume 84, Mean Platelet Volume 10.8, Monocytes # (Auto) 0.9, Monocytes (%) (Auto) 13, Neutrophils # (Auto) 4.0, Neutrophils (%) (Auto) 58, Phosphorus Level 3.0, Platelet Count 93, Potassium Level 3.8, Red Blood Count 5.83, Red Cell Distribution Width 22.1, Sodium Level 139, Total Bilirubin 2.8, Total Protein 6.2, White Blood Count 6.9 10/25/16 10:55: Glucometer 126 Discharge Home Medications: Active Scripts Active Eliquis (Apixaban) 2.5 Mg Tablet 2.5 Mg PO BID Tamiflu (Oseltamivir Phosphate) 75 Mg Cap 1 Each PO BID 2 Days Amox Tr-K Clv 875-125 mg Tab (Amoxicillin/Potassium Clav) 1 Each Tablet 875 Mg PO BID WITH MEALS Reported Metoprolol Succinate 25 Mg Tab.er.24h 25 Mg PO HS Amiodarone HCl 200 Mg Tablet 200 Mg PO DAILY Entresto 24 mg-26 mg Tablet (Sacubitril/Valsartan) 1 Each Tablet 1 Tab PO BID Allopurinol 100 Mg Tablet 100 Mg PO DAILY Metoprolol Succinate 50 Mg Tab.er.24h 50 Mg PO DAILY Eliquis (Apixaban) 5 Mg Tablet 5 Mg PO BID Furosemide 40 Mg Tablet 40 Mg PO BID Cod Liver Oil 1 Each Capsule 1 Cap PO DAILY Garlic 1 Each Capsule 1 Cap PO DAILY Aspirin EC (Aspirin) 81 Mg Tablet.dr 81 Mg PO HS Glyburide 5 Mg Tablet 2.5 Mg PO DAILY TAKES 1/2 (5MG) TABLET Instructions to patient/family Please see electonic discharge instructions given to patient. Clinical Quality Measures DVT/VTE Risk/Contraindication: Risk Factor Score Per Nursin RFS Level Per Nursing on Admit: 2=Moderate CAMMY COLLINS DO Oct 25, 2016 11:27
[2016-10-25] MEDS ORDERED: AMOX1TAB12 PO (11:39)
--- NOTE | 2016-10-25 11:42 | Discharge Inst-Home Health ---
Discharge Inst-to Home Health Patient Instructions Patient Instructions/FollowUp: Maintain appointment at [facility] is scheduled Complete antibiotics and Tamiflu Patient Problems: influenza Pneumonia [place], [place] DISCHARGE ORDERS Allergies: Coded Allergies: No Known Drug Allergies (Unverified , 04/17/15) Height (Feet): 6 Height (Inches): 0.00 Weight (Pounds): 187 Weight (Ounces): 0.0 Home Health Need/Face to Face Reason Pt Homebound severe weakness following influenza and pneumonia I Have Seen Pt Pdse-am-Msci: Yes Date of Face to Face: Oct 25, 2016 Discharged To: Home Diagnosis/Conditions HH Order: medication administration Monitor lung status Consult/Follow Up/New Order *I certify that based on my findings, the following services are medically necessary Home Health Services: Services: Nursing Services My clinical findings support the need for the above services; see Diagnosis. Dicharge Diet: ADA Diet, Cardiac Diet Daily Activity as Tolerated: Yes Pneu Vac Indicated: Yes Discharge Medications: New, Converted, or Re-newed RX: Transmited to Pharmacy I certify that this patient is under my care and that I, a nurse practitioner or a physician; a respiratory therapy assistant working with me, had a face to face encounter that - meets the physician face to face encounter requirements with this patient as dated. CAMMY MIXON DO Oct 25, 2016 11:42
[2016-10-25] MEDS ORDERED: OSLT75C PO (11:43)
[2016-10-25] MEDS ORDERED: RELABEL FOR HOME USE MC SCH (11:45)
[2016-10-25] MEDS ORDERED: APIX2.5T PO (11:45)
[2016-10-25] MEDS ORDERED: AUGMENTIN 875 MG TAB (AMOXICILLIN/CLAVULANATE) PO SCH (17:00)
[2016-10-25] MEDS ORDERED: APIXABAN 2.5 MG (ELIQUIS) TABLET PO SCH (21:00)
[2016-10-26] MEDS ORDERED: FUROSEMIDE 40 MG (LASIX) TAB PO SCH (09:00)
== END 2016-10-25 16:08 | disposition home health service (06) | DRG 871 ==
LOC: EDUNIT# 19:34 → ER 19:35 → ICU 22:14 → 4TH 10-23 12:30
PROVIDERS: ADMIT Family Medicine; ATTEND Family Medicine
DX: A41.89 Other specified sepsis (principal); B97.89 Other viral agents as the cause of diseases classified elsewhere; R65.20 Severe sepsis without septic shock; J10.00 Influenza due to other identified influenza virus with unspecified type of pneumonia; K72.00 Acute and subacute hepatic failure without coma; I50.23 Acute on chronic systolic (congestive) heart failure; I25.5 Ischemic cardiomyopathy; K74.60 Unspecified cirrhosis of liver; D68.4 Acquired coagulation factor deficiency; I10 Essential (primary) hypertension; E11.9 Type 2 diabetes mellitus without complications; I48.91 Unspecified atrial fibrillation; I25.10 Atherosclerotic heart disease of native coronary artery without angina pectoris; D69.6 Thrombocytopenia, unspecified; M10.9 Gout, unspecified; N62 Hypertrophy of breast; K59.00 Constipation, unspecified; Z95.1 Presence of aortocoronary bypass graft; Z79.84 Long term (current) use of oral hypoglycemic drugs; Z87.891 Personal history of nicotine dependence; Z95.810 Presence of automatic (implantable) cardiac defibrillator; Z79.01 Long term (current) use of anticoagulants
CPT/HCPCS: 36415; 71010; 71020; 76705; 80048; 80053; 80074; 80076; 80162; 80202; 81000; 82140; 82962; 83605; 83615; 83690; 83735; 83880; 84100; 84484; 85007; 85025; 85027; 85610; 85730; 86141; 87040; 87081; 87088; 87804; 93005; 93041; 94640; 94760; 96365; 96375

== ENCOUNTER → 2017-08-05 | Outpatient (CLI) | payer MEDICARE, OTHER ==
[~2017-08-05] MED LIST changes: +ALLO100T PO; +AMIO200T2 PO; +AMOX1TAB12 PO; +APIX2.5T PO; -METO-272 PO; -METO-274 PO; +METO-370 PO; +METO-387 PO; +METO-395 PO; +OSLT75C PO; +SACU1TAB PO
[2017-08-05 12:21] LABS: ALBUMIN 3.8 GM/DL (3.2-4.5); BILIRUBIN,TOTAL 2.6 MG/DL (0.1-1.0); CALCIUM 9.5 MG/DL (8.5-10.1); CREATININE SERUM 1.6 MG/DL (0.60-1.30); MAGNESIUM 1.9 MG/DL (1.8-2.4); POTASSIUM 3.5 MMOL/L (3.6-5.0); TOTAL PROTEIN 8.4 GM/DL (6.4-8.2)
== END ==
LOC: LAB 11:29
PROVIDERS: ATTEND Nurse Practitioner Family
DX: I25.5 Ischemic cardiomyopathy (principal); I25.10 Atherosclerotic heart disease of native coronary artery without angina pectoris; I50.22 Chronic systolic (congestive) heart failure; I48.2 Chronic atrial fibrillation
CPT/HCPCS: 36415; 80053; 83735; 83880

== ENCOUNTER → 2017-09-06 | Outpatient (CLI) | payer MEDICARE, OTHER | LOC: CARD 08:53 | PROVIDERS: ATTEND Nurse Practitioner Family | DX: I25.10 Atherosclerotic heart disease of native coronary artery without angina pectoris (principal); I25.5 Ischemic cardiomyopathy; I50.22 Chronic systolic (congestive) heart failure; I48.2 Chronic atrial fibrillation | CPT/HCPCS: 93306 ==

== ENCOUNTER 2017-11-10 18:09 | Inpatient (IN) | payer MEDICARE, OTHER ==
[2017-11-10] VITALS (8 sets, daily range): BP systolic 114–125; BP diastolic 73–97
[~2017-11-10] VITALS: Ht 182.9 cm; Wt 85.0 kg
--- NOTE | 2017-11-10 18:43 | ED General ---
General Chief Complaint: Neurological Problems Stated Complaint: SOB Nursing Triage Note: PT TO RM 5 BY WC FROM VEHICLE WITH CC OF WEAKNESS, CONFUSION THAT STARTED THIS A.M. Nursing Sepsis Screen: No Definite Risk Source of Information: Patient Exam Limitations: Physical Impairments History of Present Illness Date Seen by Provider: Nov 10, 2017 Time Seen by Provider: 18:07 Initial Comments Here by private vehicle with report of weakness and confusion that started this morning but definitely worsened this afternoon. No reported nausea or vomiting. Patient reports that he has not urinated today. He is answering questions well with yes or no but is confused and is not able to really define his situation. He is confused on date. Denies pain currently or respiratory problems. Denies weakness but was two-person assist to get out of the wheelchair. Daughter arrives with him. Timing/Duration: 24 Hours Severity: Moderate, Severe Associated Systoms: Fever/Chills, No Nausea/Vomiting, No Shortness of Air, Weakness Allergies and Home Medications Allergies Coded Allergies: No Known Drug Allergies (Unverified , 04/17/15) Home Medications Allopurinol 100 Mg Tablet, 100 MG PO DAILY, (Reported) Amiodarone HCl 200 Mg Tablet, 200 MG PO DAILY, (Reported) Amoxicillin/Potassium Clav 1 Each Tablet, 875 MG PO BID WITH MEALS Prescribed by: CAMMY MIXON on 10/25/16 1139 Apixaban 2.5 Mg Tablet, 2.5 MG PO BID Prescribed by: CAMMY MIXON on 10/25/16 1145 Aspirin 81 Mg Tablet.dr, 81 MG PO HS, (Reported) Cod Liver Oil 1 Each Capsule, 1 CAP PO DAILY, (Reported) Furosemide 40 Mg Tablet, 40 MG PO BID, (Reported) Garlic 1 Each Capsule, 1 CAP PO DAILY, (Reported) Glyburide 5 Mg Tablet, 2.5 MG PO DAILY, (Reported) TAKES 1/2 (5MG) TABLET Metoprolol Succinate 50 Mg Tab.er.24h, 50 MG PO DAILY, (Reported) Metoprolol Succinate 25 Mg Tab.er.24h, 25 MG PO HS, (Reported) Oseltamivir Phosphate 75 Mg Cap, 1 EACH PO BID Prescribed by: CAMMY MIXON on 10/25/16 1143 Sacubitril/Valsartan 1 Each Tablet, 1 TAB PO BID, (Reported) Patient Home Medication List Home Medication List Reviewed: Yes Constitutional: see HPI, No chills, No fever, weakness EENTM: no symptoms reported Respiratory: No short of breath Cardiovascular: No chest pain, edema Other Unable to complete review of systems due to altered mental status Past Zkxfkwx-Eposbg-Pmypdc Hx Patient Social History Alcohol Use: Denies Use Recreational Drug Use: No Smoking Status: Former Smoker Former Smoker, Quit: Sep 02, 1973 Recent Foreign Travel: No Contact w/Someone Who Travel: No Recent Infectious Disease Expo: No Recent Hopitalizations: No Immunizations Up To Date Tetanus Booster (TDap): Unknown PED Vaccines UTD: No Date of Influenza Vaccine: Jun 05, 2017 Seasonal Allergies Seasonal Allergies: No Surgeries History of Surgeries: Yes (PACEMAKER) Surgeries: Cardiac, CABG, Defibrillator, Pacemaker Respiratory History of Respiratory Disorde: No Currently Using CPAP: No Currently Using BIPAP: No Cardiovascular History of Cardiac Disorders: Yes (CABG/ATRIAL FLUTTER, congestive heart failure) Cardiac Disorders: Atrial Fibrillation, Cardiomyopathy, Coronary Artery Disease , Hypertension, Valvular Heart Disease Neurological History of Neurological Disord: No Reproductive System Hx Reproductive Disorders: No Genitourinary History of Genitourinary Disor: No Gastrointestinal History of Gastrointestinal Di: No Musculoskeletal History of Musculoskeletal Dis: No Endocrine History of Endocrine Disorders: Yes Endocrine Disorders: Diabetes, Non-Insulin dep Cancer History of Cancer: No Psychosocial History of Psychiatric Problem: No Integumentary History of Skin or Integumenta: No Blood Transfusions History of Blood Disorders: No Reviewed Nursing Assessment Reviewed/Agree w Nursing PMH: Yes Family Medical History Significant Family History: No Pertinent Family Hx Physical Exam-Suspected Sepsis Physical Exam Vital Signs Vital Signs - First Documented 11/10/17 18:16 Temp 96.8 Pulse 80 Resp 20 B/P (MAP) 118/89 (99) Pulse Ox 98 O2 Delivery Room Air Capillary Refill : Greater Than 3 Seconds Blood Pressure Mean: 99 General Appearance: Mild Distress, Other (ill appearing) HEENT: PERRL/EOMI, Pharynx Normal Neck: Non Tender, Supple Respiratory: Lungs Clear, Normal Breath Sounds Cardiovascular: Regular Rate, Rhythm, No Murmur Gastrointestinal: Normal Bowel Sounds, No Organomegaly, No Pulsatile Mass, Non Tender, Soft Back: Normal Inspection, No Vertebral Tenderness Extremity: No Calf Tenderness, Pedal Edema (portable is edema to the knees bilaterally), Pelvis Stable Neurologic/Psychiatric: Other (awake and answers yes or no questions. Confused. Does follow commands. Disoriented to time and place but oriented to person.) Skin: warm/dry, cool, No jaundice, No ulcerations Focused Exam Evaluation Lactate Level Laboratory Tests 11/10/17 19:13: Lactic Acid Level 3.63*H Lactic Acid Level Laboratory Tests Test 11/10/17 19:13 Lactic Acid Level 3.63 MMOL/L (0.50-2.00) *H Progress/Results/Core Measures Suspected Sepsis Recent Fever Within 48 Hours: No Infection Criteria Present: Suspected New Infection New/Unexplained Altered Menta: Yes Sepsis Screen: No Definite Risk Sepsis Diagnosis: SIRS Temperature:96.8 Pulse: 80 Respiratory Rate: 20 Laboratory Tests 11/10/17 19:13: White Blood Count 8.8 Blood Pressure 118 /89 Mean: 99 Laboratory Tests 11/10/17 19:13: Lactic Acid Level 3.63*H Laboratory Tests 11/10/17 19:13: Creatinine 1.44H, INR Comment 1.7H, Platelet Count 146, Total Bilirubin 5.1H Results/Orders Lab Results Laboratory Tests Test 11/10/17 18:14 11/10/17 19:00 11/10/17 19:13 11/10/17 20:20 Range/Units Glucometer 153 H 70-110 MG/DL Blood Gas Puncture Site LEFT BRACHIAL Blood Gas Patient Temperature 94.5 Arterial Blood pH 7.47 H 7.37-7.43 Arterial Blood Partial Pressure CO2 30 L 35-45 MMHG Arterial Blood Partial Pressure O2 80 79-93 MMHG Arterial Blood HCO3 22 L 23-27 MMOL/L Arterial Blood Total CO2 23.4 21.0-31.0 MMOL/L Arterial Blood Oxygen Saturation 98 94-100 % Arterial Blood Base Excess -1.2 -2.5-2.5 MMOL/L Oli Test NA Blood Gas Ventilator Setting NO Blood Gas Inspired Oxygen ROOM AIR White Blood Count 8.8 4.3-11.0 10^3/uL Red Blood Count 6.15 H 4.35-5.85 10^6/uL Hemoglobin 17.6 13.3-17.7 G/DL Hematocrit 52 40-54 % Mean Corpuscular Volume 84 80-99 FL Mean Corpuscular Hemoglobin 29 25-34 PG Mean Corpuscular Hemoglobin Concent 34 32-36 G/DL Red Cell Distribution Width 20.8 H 10.0-14.5 % Platelet Count 146 130-400 10^3/uL Mean Platelet Volume 11.2 H 7.4-10.4 FL Neutrophils (%) (Auto) 80 H 42-75 % Lymphocytes (%) (Auto) 13 12-44 % Monocytes (%) (Auto) 7 0-12 % Eosinophils (%) (Auto) 0 0-10 % Basophils (%) (Auto) 0 0-10 % Neutrophils # (Auto) 7.0 1.8-7.8 X 10^3 Lymphocytes # (Auto) 1.2 1.0-4.0 X 10^3 Monocytes # (Auto) 0.6 0.0-1.0 X 10^3 Eosinophils # (Auto) 0.0 0.0-0.3 10^3/uL Basophils # (Auto) 0.0 0.0-0.1 10^3/uL Prothrombin Time 19.8 H 12.2-14.7 SEC INR Comment 1.7 H 0.8-1.4 Activated Partial Thromboplast Time 33 24-35 SEC Sodium Level 137 135-145 MMOL/L Potassium Level 4.3 3.6-5.0 MMOL/L Chloride Level 101 98-107 MMOL/L Carbon Dioxide Level 23 21-32 MMOL/L Anion Gap 13 5-14 MMOL/L Blood Urea Nitrogen 35 H 7-18 MG/DL Creatinine 1.44 H 0.60-1.30 MG/DL Estimat Glomerular Filtration Rate 48 BUN/Creatinine Ratio 24 Glucose Level 153 H 70-105 MG/DL Lactic Acid Level 3.63 *H 0.50-2.00 MMOL/L Calcium Level 9.9 8.5-10.1 MG/DL Magnesium Level 2.0 1.8-2.4 MG/DL Total Bilirubin 5.1 H 0.1-1.0 MG/DL Aspartate Amino Transf (AST/SGOT) 48 H 5-34 U/L Alanine Aminotransferase (ALT/SGPT) 34 0-55 U/L Alkaline Phosphatase 145 H 40-136 U/L Troponin I < 0.30 <0.30 NG/ML C-Reactive Protein High Sensitivity 1.88 H 0.00-0.50 MG/DL B-Type Natriuretic Peptide 1594.0 H <100.0 PG/ML Total Protein 8.0 6.4-8.2 GM/DL Albumin 3.5 3.2-4.5 GM/DL Thyroid Stimulating Hormone (TSH) 3.53 0.35-4.94 UIU/ML Urine Color BECKY H Urine Clarity CLEAR Urine pH 5 5-9 Urine Specific Edison 1.025 H 1.016-1.022 Urine Protein 3+ H NEGATIVE Urine Glucose (UA) 1+ H NEGATIVE Urine Ketones NEGATIVE NEGATIVE Urine Nitrite POSITIVE H NEGATIVE Urine Bilirubin 2+ H NEGATIVE Urine Urobilinogen 12 H NORMAL MG/DL Urine Leukocyte Esterase 1+ H NEGATIVE Urine RBC (Auto) 3+ H NEGATIVE Urine RBC 5-10 H /HPF Urine WBC 0-2 /HPF Urine Crystals PRESENT H /LPF Urine Amorphous Sediment FEW HILDA URATES H /LPF Urine Bacteria NONE /HPF Urine Casts NONE /LPF Urine Mucus NEGATIVE /LPF Urine Culture Indicated YES My Orders Orders - LISA RED MD BNP (11/10/17 18:) Cbc With Automated Diff (11/10/17:) Comprehensive Metabolic Panel (11/10/17:) Hs C Reactive Protein (11/10/17) Lactic Acid Analyzer (11/10/17) Magnesium (11/10/17:) Protime With Inr (11/10/17) Partial Thromboplastin Time (11/10/17) Thyroid Stimulating Hormone (11/10/17) Troponin I (11/10/17:) Ua Culture If Indicated (11/10/17:) Blood Culture (11/10/17:) Chest 1 View, Ap/Pa Only (11/10/17:) Ct Head Wo-R/O Stroke (11/10/17:) Saline Lock/Iv-Start (11/10/17 18:) Ekg Tracing (11/10/17:) Monitor-Rhythm Ecg Trace Only (11/10/17) Arterial Blood Gas (11/10/17 18:30) Ct Chest Wo (11/10/17 19:22) Saline Lock/Iv-Start (11/10/17 19:34) Ns Iv 1000 Ml (Sodium Chloride 0.9%) (11/10/17 19:34) Urine Culture (11/10/17 20:20) Piperacillin Sodium/Tazobactam (Zosyn Vi (11/10/17 20:45) Medications Given in ED Current Medications Medications Dose Ordered Sig/Kat Route Start Time Stop Time Status Last Admin Dose Admin Sodium Chloride 1,000 ml @ 0 mls/hr Q0M ONCE IV 11/10/17 19:34 11/10/17 19:36 DC 11/10/17 20:05 500 MLS/HR Vital Signs/I&O Vital Sign - Last 12Hours 11/10/17 18:16 Temp 96.8 Pulse 80 Resp 20 B/P (MAP) 118/89 (99) Pulse Ox 98 O2 Delivery Room Air Capillary Refill : Greater Than 3 Seconds Blood Pressure Mean: 99 Progress Note : Progress Note Seen and evaluated. IV, labs, EKG and chest x-ray ordered. We will get CT head due to mental status changes. Patient is not a candidate for TPA due to being on oral anticoagulants and he is outside the timeframe. This is discussed with family who agree. Normal saline 500 mL bolus. Monitor patient. Chest x-ray shows what appears to be large left pleural effusion so we will get CT chest without contrast to further evaluate given the significance of the findings. Monitor patient. 1999: Lactic acid is elevated. Patient is receiving 500 mL bolus of normal saline. BP remains in normal range and heart rate is to although he is paced. Monitor patient. 2034: I discussed the case with Dr. Montes De Oca. Patient will be admitted to the ICU. He does have elevated total bilirubin. Dr. Montes De Oca will consult related to the heart failure concerns. He also has a large pleural effusion that we will have Dr. Shetty evaluate the morning and patient likely needs thoracentesis. The lactic acid elevation may be related to the heart failure and strain related to that. Do not see an obvious focus for infection at this time. He is not in septic shock. Fluid resuscitation would be dangerous in this patient at this point although can be considered if status changes. We will go ahead and give Zosyn 4.5 g IV and continue that due to concerns related to the gallbladder. Also could have underlying pneumonia despite not seeing that given that the long is fairly compressed due to fluids. I discussed the case with Dr. Demarcus le at 2049 and she accepts patient for admission, inpatient status. I did discuss the case with Dr. Hernandez at 2037 and he will see the patient in consult. We will get a gallbladder ultrasound in the morning as well as echocardiogram. All the findings, concerns and plan were discussed with the family who agree with the plan. Admit, inpatient status. ECG Initial ECG Impression Date: Nov 10, 2017 Initial ECG Impression Time: 18:20 Initial ECG Rate: 80 Initial ECG Comparisson: Unchanged Comment AV dual paced rhythm. No indications of ST elevation MS. Unchanged from previous. Interpreted by me. Diagnostic Imaging Diagonstic Imaging: Xray Comments NAME: MICHAELA FARIAS [facility] REC#: [id number] PT STATUS: REG ER : 1940 PHYSICIAN: LISA RED MD ADMIT DATE: 11/10/17/ER Signed Date of Exam: 11/10/17 CHEST 1 VIEW, AP/PA ONLY INDICATION: Weakness and confusion. COMPARISON STUDY: Chest from October 23. FINDINGS: A portable upright view of the chest demonstrates increase of the left pleural effusion. Cardiomegaly and postoperative changes are again identified with a cardiac pacemaker in place. The vascularity is normal. IMPRESSION: 1. Increase of the moderate to large left pleural effusion. 2. Stable cardiomegaly and postoperative changes. Dictated by: Dictated on workstation # [id number] Dict: 11/10/171924 Trans: 11/10/171936 Interpreted by: COURTNEY BONE MD Electronically signed by: COURTNEY BONE MD 11/10/171936 Diagonstic Imaging: CT Plain Films/CT/US/NM/MRI: head Comments NAME: MICHAELA FARIAS [facility] REC#: [id number] PT STATUS: REG ER : 1940 PHYSICIAN: LISA RED MD ADMIT DATE: 11/10/17/ER Signed Date of Exam: 11/10/17 CT HEAD WO-R/O STROKE Indication: CVA weakness nonverbal Technique: Standard noncontrast CT scan the head was obtained. Findings: Noncontrast CT scan the head demonstrates mass effect midline shift hemorrhage or extra-axial collections. Moderate atrophy microvascular disease is present. No focal areas of ischemia identified. No insular ribbon sign or hyperdense MCA sign is present. Impression: There is atrophy marked pressure disease with no acute or focal findings. Dictated by: Dictated on workstation # [id number] Dict: 11/10/171854 Trans: 11/10/171855 Interpreted by: COURTNEY BONE MD Electronically signed by: COURTNEY BONE MD 11/10/171855 Diagonstic Imaging: CT Plain Films/CT/US/NM/MRI: chest Comments NAME: MICHAELA FARIAS [facility] REC#: [id number] PT STATUS: REG ER : 1940 PHYSICIAN: LISA RED MD ADMIT DATE: 11/10/17/ER Signed Date of Exam: 11/10/17 CT CHEST WO INDICATION: Shortness of air and weakness. COMPARISON STUDY: Plain film of the chest from today. FINDINGS: There is a large nonloculated left pleural effusion. A small amount of ascites is present. There is a small right pleural effusion. Cardiomegaly is present with no pericardial effusion. Dense coronary artery calcifications are present. There is coronary artery bypass graft changes. A cardiac pacemaker is in place. Atelectasis is seen adjacent to the left pleural effusion. No infiltrates are present. No abnormal adenopathy is seen. IMPRESSION: 1. There is a large left pleural effusion and a small right pleural effusion and some ascites. 2. Cardiomegaly is present with coronary artery bypass graft changes and a cardiac pacemaker. 3. Dependent atelectasis is seen adjacent to the left pleural effusion. Dictated by: Dictated on workstation # [id number] Dict: 11/10/171945 Trans: 11/10/171953 Interpreted by: COURTNEY BONE MD Electronically signed by: COURTNEY BONE MD 11/10/171953 Departure Communication (Admissions) Time/Spoke to Admitting Phy: 20:50 Time/Spoke to Consulting Phy: 20:35 Impression Impression: Primary Impression: Pleural effusion, left Additional Impressions: Elevated lactic acid level Total bilirubin, elevated Disposition: ADMITTED INPATIENT Condition: Stable Admissions Decision to Admit Reason: Admit from ER (General) Decision to Admit/Date: Nov 10, 2017 Time/Decision to Admit Time: 20:35 Departure-Patient Inst. Referrals: KYLE FARIAS DO (PCP/Family) Primary Care Physician LISA RED MD Nov 10, 2017 18:43
--- NOTE | 2017-11-10 18:58 | Diagnostic Imaging Report ---
Indication: CVA weakness nonverbal Technique: Standard noncontrast CT scan the head was obtained. Findings: Noncontrast CT scan the head demonstrates mass effect midline shift hemorrhage or extra-axial collections. Moderate atrophy microvascular disease is present. No focal areas of ischemia identified. No insular ribbon sign or hyperdense MCA sign is present. Impression: There is atrophy marked pressure disease with no acute or focal findings. Dictated by: Dictated on workstation # [id number]
[2017-11-10 19:19] LABS: ABG BASE EXCESS -1.2 MMOL/L (-2.5-2.5); ABG OXYGEN SATURATION 98 % (94-100); ABG PCO2 30 MMHG (35-45); ABG PH 7.47 (7.37-7.43); ABG PO2 80 MMHG (79-93); ABG TCO2 23.4 MMOL/L (21.0-31.0)
[2017-11-10 19:23] LABS: INSPIRED O2 ROOM AIR; PATIENT TEMP 94.5; VENTILATOR NO
[2017-11-10 19:24] LABS: BASOPHILS % (AUTO) 0 % (0-10); EOSINOPHILS % (AUTO) 0 % (0-10); HEMATOCRIT 52 % (40-54); HEMOGLOBIN 17.6 G/DL (13.3-17.7); LYMPHOCYTES # (AUTO) 1.2 X 10^3 (1.0-4.0); LYMPHOCYTES % (AUTO) 13 % (12-44); MEAN CORPUSCULAR HEMOGLOBIN 29 PG (25-34); MEAN CORPUSCULAR HGB CONC 34 G/DL (32-36); MEAN CORPUSCULAR VOLUME 84 FL (80-99); MEAN PLATELET VOLUME 11.2 FL (7.4-10.4); MONOCYTES # (AUTO) 0.6 X 10^3 (0.0-1.0); MONOCYTES % (AUTO) 7 % (0-12); NEUTROPHILS % (AUTO) 80 % (42-75); PLATELET COUNT 146 10^3/uL (130-400); RED BLOOD COUNT 6.15 10^6/uL (4.35-5.85); RED CELL DISTRIBUTION WIDTH 20.8 % (10.0-14.5); WHITE BLOOD COUNT 8.8 10^3/uL (4.3-11.0)
[2017-11-10] MEDS ORDERED: NS IV 1000 ML 1,000 ML IV ONE (19:34)
--- NOTE | 2017-11-10 19:34 | Diagnostic Imaging Report ---
INDICATION: Weakness and confusion. COMPARISON STUDY: Chest from October 23. FINDINGS: A portable upright view of the chest demonstrates increase of the left pleural effusion. Cardiomegaly and postoperative changes are again identified with a cardiac pacemaker in place. The vascularity is normal. IMPRESSION: 1. Increase of the moderate to large left pleural effusion. 2. Stable cardiomegaly and postoperative changes. Dictated by: Dictated on workstation # [id number]
[2017-11-10 19:44] LABS: ALANINE AMINOTRANSFERASE 34 U/L (0-55); ALBUMIN 3.5 GM/DL (3.2-4.5); ALKALINE PHOSPHATASE 145 U/L (40-136); BILIRUBIN,TOTAL 5.1 MG/DL (0.1-1.0); BUN/CREATININE RATIO 24; CALCIUM 9.9 MG/DL (8.5-10.1); CARBON DIOXIDE 23 MMOL/L (21-32); CHLORIDE 101 MMOL/L (98-107); CREATININE SERUM 1.44 MG/DL (0.60-1.30); GFR ESTIMATED 48; GLUCOSE 153 MG/DL (70-105); POTASSIUM 4.3 MMOL/L (3.6-5.0); SODIUM 137 MMOL/L (135-145)
--- NOTE | 2017-11-10 19:51 | Diagnostic Imaging Report ---
INDICATION: Shortness of air and weakness. COMPARISON STUDY: Plain film of the chest from today. FINDINGS: There is a large nonloculated left pleural effusion. A small amount of ascites is present. There is a small right pleural effusion. Cardiomegaly is present with no pericardial effusion. Dense coronary artery calcifications are present. There is coronary artery bypass graft changes. A cardiac pacemaker is in place. Atelectasis is seen adjacent to the left pleural effusion. No infiltrates are present. No abnormal adenopathy is seen. IMPRESSION: 1. There is a large left pleural effusion and a small right pleural effusion and some ascites. 2. Cardiomegaly is present with coronary artery bypass graft changes and a cardiac pacemaker. 3. Dependent atelectasis is seen adjacent to the left pleural effusion. Dictated by: Dictated on workstation # [id number]
[2017-11-10 20:25] LABS: CLARITY,URINE CLEAR; COLOR,URINE AMBER; GLUCOSE, URINE (UA) 1+ (NEGATIVE); KETONES,URINE NEGATIVE (NEGATIVE); LEUKOCYTE ESTERASE ,URINE 1+ (NEGATIVE); NITRITE,URINE POSITIVE (NEGATIVE); PH,URINE 5 (5-9); PROTEIN,URINE 3+ (NEGATIVE); UROBILINOGEN,URINE 12 MG/DL (NORMAL)
[2017-11-10 20:35] LABS: BILIRUBIN,URINE 2+ (NEGATIVE); WBC,URINE 0-2 /HPF
[2017-11-10 20:36] LABS: AMORPHOUS SEDIMENT,UR FEW AMOR URATES /LPF
[2017-11-10] MEDS ORDERED: PIPERACILLIN SODIUM/TAZOBACTAM 4.5 GM in D5W 100 ML IVPB 100 ML IV ONE (20:45)
[2017-11-10 20:46] LABS: INR 1.7 (0.8-1.4); PROTHROMBIN TIME PATIENT 19.8 SEC (12.2-14.7)
[2017-11-10] MEDS ORDERED: LIDOCAINE UROJET 2% GEL 10 ML PKG ONE (23:24)
[2017-11-11] VITALS (26 sets, daily range): BP systolic 82–128; BP diastolic 56–97
[2017-11-11] MEDS: NS IV 1000 ML 1,000 ML IV SCH ×2 (00:06→02:45)
[2017-11-11] MEDS ORDERED: RT-ALBUTEROL/IPRATROPIUM 3 ML (DUONEB) VIAL INH PRN (00:30)
[2017-11-11] MEDS: PIPERACILLIN SODIUM/TAZOBACTAM 4.5 GM in NS (IVPB) 100 ML IV SCH ×3 (02:44→17:45)
[2017-11-11 03:31] LABS: BASOPHILS % (AUTO) 0 % (0-10); EOSINOPHILS % (AUTO) 0 % (0-10); HEMATOCRIT 47 % (40-54); HEMOGLOBIN 16.1 G/DL (13.3-17.7); LYMPHOCYTES # (AUTO) 0.9 X 10^3 (1.0-4.0); LYMPHOCYTES % (AUTO) 12 % (12-44); MEAN CORPUSCULAR HEMOGLOBIN 29 PG (25-34); MEAN CORPUSCULAR HGB CONC 35 G/DL (32-36); MEAN CORPUSCULAR VOLUME 84 FL (80-99); MEAN PLATELET VOLUME 10.9 FL (7.4-10.4); MONOCYTES # (AUTO) 0.8 X 10^3 (0.0-1.0); MONOCYTES % (AUTO) 11 % (0-12); NEUTROPHILS # (AUTO) 5.9 X 10^3 (1.8-7.8); NEUTROPHILS % (AUTO) 78 % (42-75); PLATELET COUNT 120 10^3/uL (130-400); RED BLOOD COUNT 5.53 10^6/uL (4.35-5.85); RED CELL DISTRIBUTION WIDTH 20.5 % (10.0-14.5); WHITE BLOOD COUNT 7.7 10^3/uL (4.3-11.0)
[2017-11-11 03:54] LABS: ALANINE AMINOTRANSFERASE 27 U/L (0-55); ALBUMIN 2.9 GM/DL (3.2-4.5); ALKALINE PHOSPHATASE 106 U/L (40-136); BILIRUBIN,TOTAL 4.8 MG/DL (0.1-1.0); BUN/CREATININE RATIO 32; CALCIUM 8.9 MG/DL (8.5-10.1); CARBON DIOXIDE 21 MMOL/L (21-32); CHLORIDE 102 MMOL/L (98-107); CREATININE SERUM 1.06 MG/DL (0.60-1.30); GFR ESTIMATED > 60; GLUCOSE 127 MG/DL (70-105); MAGNESIUM 1.9 MG/DL (1.8-2.4); PHOSPHORUS 3.5 MG/DL (2.3-4.7); POTASSIUM 4.5 MMOL/L (3.6-5.0); SODIUM 136 MMOL/L (135-145); TOTAL PROTEIN 6.6 GM/DL (6.4-8.2)
[2017-11-11] MEDS: RT-ALBUTEROL/IPRATROPIUM 3 ML (DUONEB) VIAL INH SCH ×4 (04:52→20:02)
--- NOTE | 2017-11-11 06:49 | Pulmonary Consultation ---
History of Present Illness History of Present Illness Date of Consultation 11/11/17 06:44 Time Seen by Provider: 06:44 Date of Admission History of Present Illness 77yo pt presented to ED secondary to worsening weakness and confusion. He is unsure when symptoms started. Pt is confused and it is difficult to obtain complete ROS. He has been seen at [facility] secondary to CAD and cardiomyopathy. His last Echo shows EF of 20%. PT has been having progressive weakness, and confusion. I am consulted for ICU management. Allergies and Home Medications Allergies Coded Allergies: No Known Drug Allergies (Unverified , 04/17/15) Home Medications Allopurinol 100 Mg Tablet, 100 MG PO DAILY, (Reported) Amiodarone HCl 200 Mg Tablet, 200 MG PO DAILY, (Reported) Amoxicillin/Potassium Clav 1 Each Tablet, 875 MG PO BID WITH MEALS Prescribed by: CAMMY MIXON on 10/25/16 1139 Apixaban 2.5 Mg Tablet, 2.5 MG PO BID Prescribed by: CAMMY MIXON on 10/25/16 1145 Aspirin 81 Mg Tablet.dr, 81 MG PO HS, (Reported) Cod Liver Oil 1 Each Capsule, 1 CAP PO DAILY, (Reported) Furosemide 40 Mg Tablet, 40 MG PO BID, (Reported) Garlic 1 Each Capsule, 1 CAP PO DAILY, (Reported) Glyburide 5 Mg Tablet, 2.5 MG PO DAILY, (Reported) TAKES 1/2 (5MG) TABLET Metoprolol Succinate 50 Mg Tab.er.24h, 50 MG PO DAILY, (Reported) Metoprolol Succinate 25 Mg Tab.er.24h, 25 MG PO HS, (Reported) Oseltamivir Phosphate 75 Mg Cap, 1 EACH PO BID Prescribed by: CAMMY MIXON on 10/25/16 1143 Sacubitril/Valsartan 1 Each Tablet, 1 TAB PO BID, (Reported) Past Woavopv-Vvutas-Bggpff Hx Patient Social History Alcohol Use: Denies Use Recreational Drug Use: No Smoking Status: Former Smoker Former Smoker, Quit: Sep 02, 1973 Recent Foreign Travel: No Contact w/Someone Who Travel: No Recent Infectious Disease Expo: No Recent Hopitalizations: No Immunizations Up To Date Tetanus Booster (TDap): Unknown PED Vaccines UTD: No Date of Pneumonia Vaccine: Jun 02, 2017 Date of Influenza Vaccine: Jun 05, 2017 Seasonal Allergies Seasonal Allergies: No Surgeries History of Surgeries: Yes (PACEMAKER) Surgeries: Cardiac, CABG, Defibrillator, Pacemaker Respiratory History of Respiratory Disorde: No Currently Using CPAP: No Currently Using BIPAP: No Cardiovascular History of Cardiac Disorders: Yes (CABG/ATRIAL FLUTTER, congestive heart failure) Cardiac Disorders: Atrial Fibrillation, Cardiomyopathy, Coronary Artery Disease , Hypertension, Valvular Heart Disease Neurological History of Neurological Disord: No Reproductive System Hx Reproductive Disorders: No Sexually Transmitted Disease: No HIV/AIDS: No Genitourinary History of Genitourinary Disor: No Genitourinary Disorders: Kidney Stones Gastrointestinal History of Gastrointestinal Di: No Musculoskeletal History of Musculoskeletal Dis: No Endocrine History of Endocrine Disorders: Yes Endocrine Disorders: Diabetes, Non-Insulin dep HEENT History of HEENT Disorders: No Cancer History of Cancer: No Psychosocial History of Psychiatric Problem: No Integumentary History of Skin or Integumenta: No Blood Transfusions History of Blood Disorders: No Reviewed Nursing Assessment Reviewed/Agree w Nursing PMH: Yes Family Medical History Significant Family History: No Pertinent Family Hx Review of Systems Time Seen by Provider: 07:43 Exam Exam Vital Signs Date Time Temp Pulse Resp B/P (MAP) Pulse Ox O2 Delivery O2 Flow Rate FiO2 11/11/17 06:00 80 12 105/65 (78) 96 Room Air 11/11/17 05:00 80 12 97/66 (76) 95 Room Air 11/11/17 04:06 98.9 11/11/17 04:00 80 13 99/73 (82) 97 Room Air 11/11/17 03:51 97 Room Air 11/11/17 03:00 80 23 98/74 (82) 97 Room Air 11/11/17 02:00 80 13 109/69 (82) 97 Room Air 11/11/17 01:10 97.1 11/11/17 01:00 86 11/11/17 01:00 86 23 124/79 (94) 97 Room Air 11/11/17 00:21 80 97 21 11/11/17 00:00 97 Room Air 11/11/17 00:00 80 13 128/85 (99) 97 Room Air 11/10/17 23:17 80 11/10/17 23:15 80 17 122/84 (97) 98 Room Air 11/10/17 23:00 80 12 114/73 (87) 97 Room Air 11/10/17 22:45 80 15 119/83 (95) 98 Room Air 11/10/17 22:30 80 15 115/87 (96) 98 Room Air 11/10/17 22:15 80 12 119/84 (96) 98 Room Air 11/10/17 22:00 80 15 118/85 (96) 98 Room Air 11/10/17 22:00 98 Room Air 11/10/17 22:00 95.7 80 16 118/88 (94) 97 Room Air 11/10/17 21:58 96.1 80 20 121/80 (94) 98 Room Air 11/10/17 21:45 80 25 125/97 (106) 98 Room Air 11/10/17 21:45 80 11/10/17 18:16 96.8 80 20 118/89 (99) 98 Room Air I & O 11/11/17 07:00 Intake Total 500 ml Output Total 385 ml Balance 115 ml General Appearance: Mild Distress, Other (ill appearing) HEENT: PERRL/EOMI, Pharynx Normal Neck: Non Tender, Supple Respiratory: Decreased Breath Sounds (Left > RIght ) Cardiovascular: Regular Rate, Rhythm, No Murmur Capillary Refill: Less Than 3 Seconds Extremity: No Calf Tenderness, Pedal Edema (portable is edema to the knees bilaterally), Pelvis Stable Neurologic/Psychiatric: Other (awake and answers yes or no questions. Confused. Does follow commands. Disoriented to time and place but oriented to person.) Skin: Normal Color, Warm/Dry Lymphatic: No Adenopathy Results Lab Laboratory Tests 11/10/17 19:13 11/11/17 03:05 Assessment/Plan Assessment/Plan UTI with severe sepsis SIRS criteria (RR, Hypothermia) -Continue Zosyn -secondary to CHF we must be careful with IVF -Decrease IVF to 50cc/hr -Alanis culture pending Left >Right pleural effusion probably from ascites -Pt is on Eliquis at home Dementia with worsening confusion -Check ammonia level -treat UTI currently on Zosyn Cardiomyopathy with EF of 20% - Lasix is ordered BID Weakness/debility -PT/OT Chronically elevated Liver enzymes with ascites -Last hep panel was negative Hx of Afib -PT is on Eliquis at home I discussed pt with and Dr. Roper. Will Continue current plan of care and hold off on thoracentesis vs paracentesis. Critical Care: Critically Ill Patient Time spent with patient (mins): 120 GARRETT MACHADO DO Nov 11, 2017 06:49
--- NOTE | 2017-11-11 08:06 | Diagnostic Imaging Report ---
INDICATION: Heart failure, compared 11/10. FINDINGS: Moderate to large left-sided pleural effusion, unchanged. Cardiomegaly, Unchanged. The right lung clear. The right lung vascularity not pathologically distended. Left lower lobe atelectatic likely owing to compression by the adjacent pleural fluid. IMPRESSION: No substantial change in cardiomegaly, partial left lung atelectasis and prominent left-sided pleural effusion. Dictated by: Dictated on workstation # [id number]
[2017-11-11] MEDS: APIXABAN 2.5 MG (ELIQUIS) TABLET PO SCH ×2 (09:04→20:10)
[2017-11-11] MEDS: ASPIRIN 81 MG CHEW (CHILDREN'S ASA) PO SCH (09:04)
[2017-11-11] MEDS: FUROSEMIDE 40 MG/4 ML INJ (LASIX) IV SCH ×2 (09:04→20:10)
--- NOTE | 2017-11-11 09:12 | Diagnostic Imaging Report ---
PROCEDURE: US abdomen complete. TECHNIQUE: Multiple Real-time grayscale images were obtained over the abdomen in various projections. INDICATION: Ascites with elevated bilirubin. COMPARISON: Gallbladder ultrasound from October 2016. FINDINGS: There is a large amount of shadowing bowel gas limiting acoustical windows in this patient. There is perihepatic and perisplenic ascites without visualized loculated collection. The aorta, IVC, spleen, and pancreas as well as the extrahepatic bile duct are obscured from visualization by overlying bowel gas. There is a large amount of sludge within the gallbladder lumen with no visualized discrete echogenic or shadowing stones and the gallbladder wall is non-thickened. The liver appears nonfocal. The unobstructed right kidney appears grossly unremarkable. The left kidney is partially obscured by overlying shadowing gas but appears grossly unremarkable. IMPRESSION: Ascites without visualized loculated collection. Biliary sludge is noted without bile duct dilatation intrahepatic. Large segments large of the viscera are obscured from visualization by overlying bowel gas limiting the acoustical windows. Dictated by: Dictated on workstation # [id number]
--- OUTSIDE RECORDS SUMMARY | 2017-11-11 10:04 | XMS REPORT | Encounter Summary ---
Author Author [facility] Organization [facility] Address Unknown Phone Unavailable Care Team Providers Care Locomotive Crane Engineer Name Role Phone Kalina Garza Unavailable JudsonNidhi PCP Vickie Monroe RN Unavailable Unavailable Reason for Visit * Reason Comments Medication Refill Encounter Details Date Type Department Care Team Description 10/16/2017 Refill [facility] Ernie Theodore MD Medication Refill [address] [place] [address] [place] [address] [phone] Social History Tobacco Use Types Packs/Day Years Used Date Former Smoker Cigarettes 0.5 5 Quit: 09/02/1984 Smokeless Tobacco: Former Chew User Alcohol Use Drinks/Week oz/Week Comments No Sex Assigned at Date Recorded Not on file as of this encounter Functional Status Functional Status Response Date of Assessment Does the patient have a hearing impairment: No 09/18/2016 as of this encounter Plan of Treatment Not on fileas of this encounter Visit Diagnoses Diagnosis Coronary artery disease involving coronary bypass graft of [place] heart without angina pectoris Essential hypertension Unspecified essential hypertension PVC's (premature ventricular contractions) Other premature beats 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
--- OUTSIDE RECORDS SUMMARY | 2017-11-11 10:04 | XMS REPORT | Encounter Summary ---
Author Author [facility] Organization [facility] Address Unknown Phone Unavailable Care Team Providers Care Demolition Specialist Name Role Phone Kalina Garza Unavailable RoperNidhi PCP Vickie Monroe RN Unavailable Unavailable Reason for Visit * Reason Comments Medication Refill Encounter Details Date Type Department Care Team Description 10/18/2017 Refill [facility] Gagan Hernández MD Medication Refill [address] [facility] [address] [place] [address] [place] [address] [phone] Social History Tobacco Use Types Packs/Day Years Used Date Former Smoker Cigarettes 0.5 5 Quit: 09/02/1984 Smokeless Tobacco: Former Chew User Alcohol Use Drinks/Week oz/Week Comments No Sex Assigned at Date Recorded Not on file as of this encounter Functional Status Functional Status Response Date of Assessment Does the patient have a hearing impairment: No 09/18/2016 as of this encounter Miscellaneous Notes * Telephone Encounter - Frannie Daley, RN - 10/18/2017 9:27 AM MACHINE TOOL ELECTRICIAN Overdue for OV, sees Dr Montes De Oca Is not going to f/u with [facility] in this encounter Plan of Treatment Not on fileas of this encounter Visit Diagnoses Not on filein this encounter
--- OUTSIDE RECORDS SUMMARY | 2017-11-11 10:04 | XMS REPORT | Continuity of Care Document ---
Author Author [employer] Organization [facility] Address Unknown Phone Unavailable Care Team Providers Care Marble Ceiling Installer Name Role Phone [employer] Unavailable Unavailable Problems Medications Allergies, Adverse Reactions, Alerts Immunizations Results Vital Signs Encounters Location Location Details Encounter Type Encounter Number Reason For Visit Attending Provider ADM Date DC Date Status Source OUTPATIENT [id number] MARITZA DIGGS 03/21/2017 03/21/2017 Active [facility] OUTPATIENT [id number] MARITZA DIGGS 06/20/2017 06/20/2017 Active [facility] OUTPATIENT [id number] MARITZA DIGGS 09/19/2017 09/19/2017 Active [facility] O Active [facility] Procedures Plan of Care Social History Assessment and Plan Family History Advance Directives Functional Status
--- OUTSIDE RECORDS SUMMARY | 2017-11-11 10:04 | XMS REPORT | Clinical Summary ---
Author Author [facility] Organization [facility] Address Unknown Phone Unavailable Care Team Providers Care Production Team Advisor Name Role Phone Kalina Garza Unavailable JudsonNidhi PCP Vickie Monroe RN Unavailable Unavailable Source Comments Some departments are not documenting in the electronic medical record. If you do not see the information that you expected, contact Release of Information in the Health Information Management department at [phone] for further assistance in locating additional records.[facility] Allergies No Known Allergies Current Medications Prescription Sig. [...] 25 mg extended release daily. Indications: 17 tabletIndications: CHRONIC HEART FAILURE chronic heart failure amiodarone (CORDARONE) Take 1 Tab by mouth 90 Tab 3 09/19/19 Active 200 mg tabletIndications: daily. Take with food. 17 Coronary artery disease involving coronary bypass graft of [place] heart without angina pectoris, Essential hypertension, PVC's (premature ventricular contractions), Chronic combined systolic and diastolic congestive heart failure (HCC), Ischemic cardiomyopathy, Paroxysmal atrial fibrillation (HCC), Pleural effusion, ICD (implantable cardioverter-defibrillato r), biventricular, in situ, Typical atrial flutter (HCC), Type 2 diabetes mellitus with complication, without long-term current use of insulin (HCC), Torsades de pointes (HCC) spironolactone Take 1 Tab by mouth 90 Tab 3 09/19/19 Active (ALDACTONE) 25 mg daily. Take with food. 17 tabletIndications: Coronary artery disease involving coronary bypass graft of [place] heart without angina pectoris, Essential hypertension, PVC's (premature ventricular contractions), Chronic combined systolic and diastolic congestive heart failure (HCC), Ischemic cardiomyopathy, Paroxysmal atrial fibrillation (HCC), Pleural effusion, ICD (implantable cardioverter-defibrillato r), biventricular, in situ, Typical atrial flutter (HCC), Type 2 diabetes mellitus with complication, without long-term current use of insulin (HCC), Torsades de pointes (HCC) Active Problems Problem Noted Date Acute combined systolic and diastolic CHF, NYHA class 2 (HCC) 09/24/2016 Torsades de pointes (HCC) 09/19/2016 ICD (implantable cardioverter-defibrillator), biventricular, in situ 2016 Overview: 2016 Single-chamber ICD ([place] [employer]) 09/13/16 RV lead revision, RA/LV lead placement and upgrade to TRANSFORMER ASSEMBLER-D (Defibrillation threshold testing (DFTs) at the time of implant) Paroxysmal atrial fibrillation (HCC) 09/12/2016 Overview: 09/17/16 Tikosyn Initiation 09/13/16 AV Fantasma Radiofrequency Ablation Ischemic cardiomyopathy 09/05/2016 Overview: 04/08/16 implantation of ICD - functioning normally but with high pacing threshold. last interrogation 07/11/16 04/13/16 Echo: EF 20%, 10/14/15 Echo: LVEF 25% 05/24/15 MUGA LVEF 33%, 05/19/15 MPE LVEF 22% 04/18/15 - 04/18/15 Echo and CROW LVEF 35 - 40% 02/07/16 [facility]: Single chamber ICD implantation: [employer] [place] passive dual coil 64 cm lead with model number 0286 and serial number [id number], lead - [place] [employer] model E140 serial number [id number] Chronic combined systolic and diastolic congestive heart failure (HCC) 05/17 Typical atrial flutter (HCC) 05/17/2015 Overview: 04/19/15: Successful DCCV. 04/19/15: CROW: EF 35-40%. Moderately impaired LV function. Moderate AV sclerosis. No thrombus. Mild MR. 04/18/15: Echo: LA size 5.1cm. EF 30%. 04/17/15: CT angio chest: No Pulm Embolism. Cardiac enlargement wit post sternotomy changes. Coronary artery disease involving coronary bypass graft of [place] heart without angina pectoris Overview: 2008: [place]. CABG x 5 - CARDONA to LAD [...] 05/17/2015 Type 2 diabetes mellitus (HCC) 05/17/2015 Encounters Date Type Specialty Care Team Description 10/18/2017 Refill Cardiology Gagan Hernández MD Medication Refill 10/16/2017 Refill Cardiology Ernie Theodore MD Medication Refill 10/02/2017 Telephone Cardiology Malina Handley RN Follow Up (Sees Dr. Montes De Oca in [place]) 09/19/2017 [facility] Cardiology Gagan Hernández MD Encounter from Last 3 Months Family History Relation Name Status Comments Father Mother Social History Tobacco Use Types Packs/Day Years Used Date Former Smoker Cigarettes 0.5 5 Quit: 09/02/1984 Smokeless Tobacco: Former Chew User Alcohol Use Drinks/Week oz/Week Comments No Sex Assigned at Date Recorded Not on file Last Filed Vital Signs Vital Sign Reading Time Taken Blood Pressure 94/63 09/19/2016 12:08 PM LIGHTHOUSE KEEPER Pulse 80 09/19/2016 12:08 PM LIGHTHOUSE KEEPER Temperature 36.5 C (97.7 F) 09/19/2016 12:08 PM LIGHTHOUSE KEEPER Respiratory Rate - - Oxygen Saturation 97% 09/19/2016 12:08 PM LIGHTHOUSE KEEPER Inhaled Oxygen - - Concentration Weight 89.8 kg (198 lb) 09/19/2016 6:00 AM LIGHTHOUSE KEEPER Height 182.9 cm (6') 09/13/2016 7:51 PM LIGHTHOUSE KEEPER Body Mass Index 26.85 09/19/2016 6:00 AM LIGHTHOUSE KEEPER Plan of Treatment Health Maintenance Due Date Last Done Comments PHYSICAL (COMPREHENSIVE) 1948 EXAM PERTUSSIS VACCINE 1952 TETANUS VACCINE 1958 DILATED EYE EXAM 1959 FOOT EXAM 1959 HBA1C 1959 MICROALBUMIN 1959 SHINGLES VACCINE 2001 PREVNAR/PNEUMOVAX (#1) 2006 INFLUENZA VACCINE 06/02/2018 Results * DEVICE EVALUATION - REMOTE ICD (10/02/2017 9:02 AM) Component Value Ref Range Generator Model # INOGEN X4 TRANSFORMER ASSEMBLER-D G148 Generator Serial # [id number] Generator Implnat Date 09/13/2016 GUILLERMINA/EOL Indicator python programmer/transmitter indicated Generator Field Auto Appraiser [employer] [employer] Generator Investigational No Wireless Generator Yes Device Type TRANSFORMER ASSEMBLER-D Device Lucan Latitude Consult Transmitter Compatible Atrial Lead Model # CapSureFix Novus MRI SureScan 5076 - 52cm Atrial Lead Serial # [id number] Atrial Lead Implant Date 09/13/2016 Atrial Lead Diaph. 10 Stimulation Atrial Lead Field Auto Appraiser Medtronic Atrial Lead No Investigational Atrial Lead Fixation active fixation Atrial Lead Location mid lateral right atrium Atrial Lead Pin Connector IS1 Atrial Lead Polarity Bipolar RV Lead Model # ENDOTAK RELIANCE G Model 0296 64cm RV Lead Serial # [id number] RV Lead Implant Date 09/13/2016 RV Lead Diaph. 10 Stimulation RV Lead Field Auto Appraiser [employer] RV Lead Investigational No RV Lead Fixation active fixation RV Lead Location RV low septum RV Lead Pin Connector ICD IS1 RV Lead Coil Dual LV Lead Model # ACUITY X4 Spiral S Model 4674 LV Lead Serial # [id number] LV Lead Implant Date 09/13/2016 LV Lead Polarity Other IS4 LV Lead Configuration E1-E3 Other LV Lead Field Auto Appraiser [employer] LV Lead Investigational No LV Lead [...] Pacemaker Dependant Yes EP Device [place] [facility] [place] of Last Remote Check 09/19/17 AT/AF Daily Mcbrides Hours 6 Remote Monitoring? No Daily Mcbrides Threshld On Alert? VF Detection/Therapy Off On Remote Check? Yes Known Diagnosed AFib Yes Other Reason Not Remote Pt will no longer follow with [facility]. Pt sees Dr. Gerard salamanca 3 mo. Specimen Performing Laboratory OTHER OUTSIDE LAB Narrative Current monitoring period 09/19/17-12/18/17 [10/09/2017 10:52:54 AM - REFUGIO TAVERAS] - remote monitoring discontinued and pt to f/u with Dr. Tavon salamanca 3 mo as they have been doing. Pt/ happy with plan. Note in chart. [10/02/2017 9:06:37 AM - MALINA HANDLEY] Please see scanned data sheets for further review. Scheduled Latitude remote transmission received 09/19/17 and reviewed today for 3 chamber TRANSFORMER ASSEMBLER-D.Device function appears appropriate. Presenting EGM shows Ap-BiVp 80bpm. Battery longevity 8yr. Events noted since 06/19/17: Atrial:none. Ventricular:none. Pt is BiVP 100% of the time. PVC burden/amount: 659 over last 91day. Next follow up appt is currently pending. Pt has not been seen here since implant but last check was 06/19/17 so I suspect he is being followed by Dr. Montes De Oca in [place]. Next remote scheduled for 3 months. Results routed to Dr. Hernández for signature and review. __ from Last 3 Months
--- OUTSIDE RECORDS SUMMARY | 2017-11-11 10:05 | XMS REPORT ---
Author Author KYLE FARIAS [facility] Address [address] [place] [address] Care Team Providers Care Shear Tender Name Role Phone KYLE FARIAS Unavailable PROBLEMS Type Condition ICD9-CM Code [id number] Code Onset Dates Condition Status SNOMED Code Problem Nonsustained ventricular tachycardia I47.2 Active 941583487 Problem Acute on chronic systolic (congestive) heart failure I50.23 Active 013793833 Problem Chronic gout, unspecified cause, unspecified site M1A.9XX0 Active 51428551 Problem Gait disturbance R26.9 Active 95915890 Problem 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 Sep, Active 861963581 Problem Typical atrial flutter I48.3 Active 979423504 Problem Dilated cardiomyopathy I42.0 Active 672976358 Problem Hx of atrioventricular node ablation Z98.890 12 Sep, 2016 Active 605443178 Problem Persistent atrial fibrillation I48.1 Active 101114915 Problem Hx of renal calculi Z87.442 Active 257746172 Problem S/P CABG (coronary artery bypass graft) Z95.1 Active 533974047 Problem Coronary artery disease involving [place] coronary artery of [place] heart without angina pectoris I25.10 Active 8042655676966 Problem Type 2 diabetes mellitus without complication E11.9 Active 53445558 Problem Non-ischemic cardiomyopathy I42.9 Apr, Active 00615886 Problem Essential hypertension I10 Active 26727220 Problem 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 Active 916620520983080 Problem Atypical atrial flutter I48.4 Apr, Active 6130481 ALLERGIES No Known Allergies SOCIAL HISTORY No smoking Hx information available PLAN OF CARE VITAL SIGNS MEDICATIONS No Known Medications RESULTS Name Result Date Reference Range Chest X-ray PA and Lateral 2016-09-06 PROCEDURES No Known procedures IMMUNIZATIONS No Known Immunizations
--- OUTSIDE RECORDS SUMMARY | 2017-11-11 10:05 | XMS REPORT ---
Author Author [employer] Organization [facility] Address [address] [place] [address] Care Team Providers Care Bread And Pastry Baker Name Role Phone SAPPHIRE FRANK Unavailable PROBLEMS Type Condition ICD9-CM Code LLU28-HE Code Onset Dates Condition Status SNOMED Code Problem Nonsustained ventricular tachycardia I47.2 Active 923830241 Problem Acute on chronic systolic (congestive) heart failure I50.23 Active 112358809 Problem Chronic gout, unspecified cause, unspecified site M1A.9XX0 Active 92605038 Problem Gait disturbance R26.9 Active 37348577 Problem 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 Sep, Active 199613511 Problem Typical atrial flutter I48.3 Active 884983071 Problem Dilated cardiomyopathy I42.0 Active 626513296 Problem Hx of atrioventricular node ablation Z98.890 12 Sep, 2016 Active 345886520 Problem Persistent atrial fibrillation I48.1 Active 545841726 Problem Hx of renal calculi Z87.442 Active 397942070 Problem S/P CABG (coronary artery bypass graft) Z95.1 Active 686882455 Problem Coronary artery disease involving [place] coronary artery of [place] heart without angina pectoris I25.10 Active 1419616172720 Problem Type 2 diabetes mellitus without complication E11.9 Active 60238319 Problem Non-ischemic cardiomyopathy I42.9 Apr, Active 13813047 Problem Essential hypertension I10 Active 22894973 Problem 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 Active 233731269946657 Problem Atypical atrial flutter I48.4 Apr, Active 8251348 ALLERGIES No Known Allergies SOCIAL HISTORY No smoking Hx information available PLAN OF CARE VITAL SIGNS MEDICATIONS Medication Instructions Dosage Frequency Start Date End Date Duration Status GlyBURIDE 5 mg Orally Once a day 1/4 tablet 24h Mar, Active RESULTS No Results PROCEDURES No Known procedures IMMUNIZATIONS No Known Immunizations
--- OUTSIDE RECORDS SUMMARY | 2017-11-11 10:05 | XMS REPORT | Encounter Summary ---
Author Author [facility] Organization [facility] Address Unknown Phone Unavailable Care Team Providers Care Physical Science Aide Name Role Phone Kalina Garza Unavailable JudsonNidhi PCP Vickie Monroe RN Unavailable Unavailable Encounter Details Date Type Department Care Team Description 09/19/2017 [facility] Cardiology Gagan Hernández MD Encounter Remote Device Check [address] [facility] [phone] [address] [place] [address] [phone] Social History Tobacco Use Types Packs/Day Years Used Date Former Smoker Cigarettes 0.5 5 Quit: 09/02/1984 Smokeless Tobacco: Former Chew User Alcohol Use Drinks/Week oz/Week Comments No Sex Assigned at Date Recorded Not on file as of this encounter Functional Status Functional Status Response Date of Assessment Does the patient have a hearing impairment: No 09/18/2016 as of this encounter Medications at Time of Discharge Medication Sig. Disp. Refills Start Date End Date allopurinol (ZYLOPRIM) Take 100 mg by mouth 100 mg tablet daily. Take with food. amiodarone (CORDARONE) Take 1 Tab by mouth 90 Tab 3 09/19/2016 200 mg tabletIndications: daily. Take with food. Coronary artery disease involving coronary bypass graft of [place] heart without angina pectoris, Essential hypertension, PVC's (premature ventricular contractions), Chronic combined systolic and diastolic congestive heart failure (HCC), Ischemic cardiomyopathy, Paroxysmal atrial fibrillation (HCC), Pleural effusion, ICD (implantable cardioverter-defibrillato r), biventricular, in situ, Typical atrial flutter (HCC), Type 2 diabetes mellitus with complication, without long-term current use of insulin (HCC), Torsades de pointes (HCC) apixaban (ELIQUIS) 5 mg Take 1 Tab by mouth twice 30 Tab 0 06/10/2015 tab tablet daily. COD LIVER OIL PO Take by mouth daily. furosemide (LASIX) 40 mg Take 40 mg by mouth twice tablet daily. GARLIC PO Take by mouth daily. glyBURIDE (DIABETA) 5 mg Take 2.5 mg by mouth tablet daily with breakfast. metoprolol XL (TOPROL XL) Take 3 Tabs by mouth 90 Tab 3 09/19/2016 25 mg extended release daily. Indications: tabletIndications: CHRONIC HEART FAILURE chronic heart failure sacubitril/valsartan Take 1 Tab by mouth twice (ENTRESTO) 24/26 mg daily. tablet spironolactone Take 1 Tab by mouth 90 Tab 3 09/19/2016 (ALDACTONE) 25 mg daily. Take with food. tabletIndications: Coronary artery disease involving coronary bypass graft of [place] heart without angina pectoris, Essential hypertension, PVC's (premature ventricular contractions), Chronic combined systolic and diastolic congestive heart failure (HCC), Ischemic cardiomyopathy, Paroxysmal atrial fibrillation (HCC), Pleural effusion, ICD (implantable cardioverter-defibrillato r), biventricular, in situ, Typical atrial flutter (HCC), Type 2 diabetes mellitus with complication, without long-term current use of insulin (HCC), Torsades de pointes (HCC) as of this encounter Plan of Treatment Not on fileas of this encounter Results * DEVICE EVALUATION - REMOTE ICD (10/02/2017 9:02 AM) Component Value Ref Range Generator Model # INOGEN X4 SUPPLY AND DISTRIBUTION MANAGER-D G148 Generator Serial # [id number] Generator Implnat Date 09/13/2016 GUILLERMINA/EOL Indicator coordinate measuring machine programmer/transmitter indicated Generator Bootmaker Hand Pickie Generator Investigational No Wireless Generator Yes Device Type SUPPLY AND DISTRIBUTION MANAGER-D Device Cascade Latitude Consult Transmitter Compatible Atrial Lead Model # CapSureFix Novus MRI SureScan 5076 - 52cm Atrial Lead Serial # [id number] Atrial Lead Implant Date 09/13/2016 Atrial Lead Diaph. 10 Stimulation Atrial Lead Bootmaker Hand Medtronic Atrial Lead No Investigational Atrial Lead Fixation active fixation Atrial Lead Location mid lateral right atrium Atrial Lead Pin Connector IS1 Atrial Lead Polarity Bipolar RV Lead Model # ENDOTAK RELIANCE G Model 0296 64cm RV Lead Serial # [id number] RV Lead Implant Date 09/13/2016 RV Lead Diaph. 10 Stimulation RV Lead Bootmaker Hand [place] [employer] RV Lead Investigational No RV Lead Fixation active fixation RV Lead Location RV low septum RV Lead Pin Connector ICD IS1 RV Lead Coil Dual LV Lead Model # ACUITY X4 Spiral S Model 4674 LV Lead Serial # [id number] LV Lead Implant Date 09/13/2016 LV Lead Polarity Other IS4 LV Lead Configuration E1-E3 Other LV Lead Bootmaker Hand [place] [employer] LV Lead Investigational No LV Lead [...] Pacemaker Dependant Yes EP Device Followed By [facility] [place] Date of Last Remote Check 09/19/17 AT/AF Daily Acampo Hours 6 Remote Monitoring? No Daily [place] Threshld On Alert? VF Detection/Therapy Off On Remote Check? Yes Known Diagnosed AFib Yes Other Reason Not Remote Pt will no longer follow with [facility]. Pt sees Dr. Gerard salamanca 3 mo. Specimen Performing Laboratory OTHER OUTSIDE LAB Narrative Current monitoring period 09/19/17-12/18/17 [10/09/2017 10:52:54 AM - REFUGIO TAVERAS] - remote monitoring discontinued and pt to f/u with Dr. Tavon salamanca 3 mo as they have been doing. Pt/ happy with plan. Note in chart. [10/02/2017 9:06:37 AM - ABHIJIT HANDLEY] Please see scanned data sheets for further review. Scheduled Latitude remote transmission received 09/19/17 and reviewed today for 3 chamber SUPPLY AND DISTRIBUTION MANAGER-D.Device function appears appropriate. Presenting EGM shows Ap-BiVp 80bpm. Battery longevity 8yr. Events noted since 06/19/17: Atrial:none. Ventricular:none. Pt is BiVP 100% of the time. PVC burden/amount: 659 over last 91day. Next follow up appt is currently pending. Pt has not been seen here since implant but last check was 06/19/17 so I suspect he is being followed by Dr. Montes De Oca in [place]. Next remote scheduled for 3 months. Results routed to Dr. Hernández for signature and review. __ in this encounter Visit Diagnoses Diagnosis ICD (implantable cardioverter-defibrillator) in place
--- OUTSIDE RECORDS SUMMARY | 2017-11-11 10:05 | XMS REPORT | Encounter Summary ---
Author [facility] Address Unknown Phone Unavailable Care Team Providers Care Ceramics Machine Operator Name Role Phone Kalina Garza Unavailable Judson Nidhi PCP Vickie Monroe RN Unavailable Unavailable Reason for Visit * Reason Comments Follow Up Sees Dr. Montes De Oca in [place] Encounter Details Date Type Department Care Team Description 10/02/2017 Telephone [facility] Cardiology Malina Dumont RN Follow Up (Sees [id number] [address] Montes De Oca in [place]) [address] [place] [address] Social History Tobacco Use Types Packs/Day Years [...] encounter Miscellaneous Notes * Telephone Encounter - Ger Morales RN - 10/09/2017 10:48 AM DISPATCHER SERVICE Called patient and spoke with spouse. They continue to see Dr. Montes De Oca every 3 months with a device check every time so they will discontinue home monitoring at this time and see Dr. Montes De Oca regularly. Pt is not going to f/u with MPE any time so home monitoring with [facility] discontinued. I let patient's spouse know to keep home monitor just in case Dr. Montes De Oca's office had the ability to follow device in the future. Pt's spouse happy with plan. * Telephone Encounter - Malina Dumont RN - 10/02/2017 9:22 AM DISPATCHER SERVICE Noted per chart review that pt has not had OV since 09/2016 (when CRTD was implanted) yet we have been doing q 3 mo remote. Looks like there have been a few attempts to contact pt for f/u appts. I tried to call pt. No answer at home number. Left VM at cell number listed. I called Dr. Montes De Oca's office in [facility] and spoke to his nurse Angelina. Pt has been f/u regularly there. (Pt lives in [facility]) His last CRTD check was in June and he is scheduled for another in Oct. They check him in the office q 3-4 months because they do not have remote capability. I will check with Dr. Hernández re: continued remote f/u with this pt. in this encounter Plan of Treatment Not on fileas of this encounter Visit Diagnoses Not on filein this encounter
--- OUTSIDE RECORDS SUMMARY | 2017-11-11 10:05 | XMS REPORT ---
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 Active 919818137105400 Problem Atypical atrial flutter I48.4 16 Apr, 2015 Active 4392268 Problem Coronary artery disease involving [place] coronary artery of [place] heart without angina pectoris I25.10 Active 8054445555857 Problem Typical atrial flutter I48.3 Active 8889677 Problem Acute on chronic systolic (congestive) heart failure I50.23 Active 503775232 Problem Chronic gout, unspecified cause, unspecified site M1A.9XX0 Active 15034841 Problem History of placement of internal cardiac defibrillator Z95.810 Active 095060294 Problem Dilated cardiomyopathy I42.0 Active 594042870 Problem Status post internal cardiac defibrillator procedure Z95.810 Active 179965859 Assessment 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 Aug, Active 156442667428815 Problem S/P CABG (coronary artery bypass graft) Z95.1 Active 770260976 Problem Type 2 diabetes mellitus without complication E11.9 Active 62591305 Problem Nonsustained ventricular tachycardia I47.2 Active 967990467 Problem Non-ischemic cardiomyopathy I42.9 16 Apr, 2015 Active 18270958 Problem Hx of renal calculi Z87.442 Active 854097606 Problem Essential hypertension I10 Active 34416616 ALLERGIES Unknown Allergies SOCIAL HISTORY No smoking Hx information available PLAN OF CARE Activity Details Pending Test DIGOXIN Pending Test MAGNESIUM, SERUM Pending Test BMP ,Reason: VITAL SIGNS MEDICATIONS Unknown Medications RESULTS Name Result Date Reference Range DIGOXIN 2016-08-06 Digoxin, Serum 0.4 0.9-2.0 MAGNESIUM, SERUM 2016-08-06 Magnesium, Serum 2.0 1.6-2.3 BMP 2016-08-06 Glucose, Serum 144 65-99 BUN 22 8-27 Creatinine, Serum 1.06 0.76-1.27 eGFR If NonAfricn Am 69 >59 eGFR If Africn Am 80 >59 BUN/Creatinine Ratio 21 10-22 Sodium, Serum 140 136-144 Potassium, Serum 4.8 3.5-5.2 Chloride, Serum 96 97-106 Carbon Dioxide, Total 26 18-29 Calcium, Serum 9.3 8.6-10.2 PROCEDURES Procedure Date Ordered Related Diagnosis Body Site [facility] Aug 06, 2016 VENIPUNCT, ROUTINE* Aug 06, 2016 IMMUNIZATIONS No Known Immunizations
--- OUTSIDE RECORDS SUMMARY | 2017-11-11 10:05 | XMS REPORT ---
Author Author SAPPHIRE FRANK Organization [employer] Address Unknown Phone Unavailable Care Team Providers Care Airplane Captain Name Role Phone SAPPHIRE FRANK CP Unavailable Allergies No Known Allergies Problems Problem Type Condition ICD-9 Code Onset Dates Condition Status Problem CAD (coronary artery disease) 414.00 Active Medications No Known Medications Results No Known Results Summary Purpose [employer] Submission
--- OUTSIDE RECORDS SUMMARY | 2017-11-11 10:05 | XMS REPORT ---
Author KATARZYNA Granados [facility] [employer] Address Unknown Phone Unavailable Care Team Providers Care Wellness Director Name Role Phone KATARZYNA FARNSWORTH CP Unavailable Allergies, Adverse Reactions, Alerts Substance Reaction Event Type N.K.D.A. 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 Active Problem Acute on chronic systolic (congestive) heart failure I50.23 Active Problem Dilated cardiomyopathy I42.0 Active Problem Typical atrial flutter I48.3 Active Problem History of placement of internal cardiac defibrillator Z95.810 Active Problem Atypical atrial flutter I48.4 Apr 17, 2015 Active Problem Status post internal cardiac defibrillator procedure Z95.810 Active Problem Chronic gout, unspecified cause, unspecified site M1A.9XX0 Active Problem Hx of renal calculi Z87.442 Active Problem S/P CABG (coronary artery bypass graft) Z95.1 Active Assessment Type 2 diabetes mellitus without complication E11.9 Active Problem Type 2 diabetes mellitus without complication E11.9 Active Problem Nonsustained ventricular tachycardia I47.2 Active Problem Non-ischemic cardiomyopathy I42.9 Apr 17, 2015 Active Medications Medication Code System Code Instructions Start Date End Date Status Dosage Garlic [facility] [address] 1000 MG Orally not defined Cod Liver Oil [facility] [address]-09 Orally not defined Furosemide [facility] [address]-50 40 MG Orally Twice a day 1 tablet Digoxin [facility] [address]-08 250 MCG Orally Once a day January 26, 2016 1 tablet Benazepril HCl [facility] 69412584295 40 MG TAKE ONE TABLET BY MOUTH DAILY GlyBURIDE [facility] [address]-90 5 mg Orally Once a day March 07, 2015 1/ 2 tablet Allopurinol [facility] [address]-54 100 MG Orally Once a day March 19, 2016 1 tablet Spironolactone [facility] [address]-26 25 MG Once a day TAKE ONE TABLET BY MOUTH ONCE DAILY Metoprolol Succinate ER [facility] [address]-48 50 MG Orally Once a day TAKE TWO TABLETS BY MOUTH ONCE DAILY Eliquis [facility] [address]-75 5 MG Orally 2 times a day per grants specialist Apr 1 tablet Procedures Procedure Coding System Code Date [facility] VISIT ESTABLISHED PATIENT CPT-4 G0467 Jul 09, 2016 Office Visit, Est Pt., Level 3 CPT-4 27468 Jul 09, 2016 GLYCATED HEMOGLOBIN TEST CPT-4 68307 Jul 09, 2016 Vital Signs Date/Time: Jul 09, 2016 Cardiac Monitoring Heart Rate 72 bpm Weight 177.1 lbs Height 74 in BMI 22.74 Index Blood Pressure Diastolic 76 mmHg Blood Pressure Systolic 108 mmHg Results Name Result Date Reference Range Unit Abnormality Flag A1C (IN HOUSE) ----A1C IN HOUSE 6.9 [id number] 4.3 - 5.6 % ----Previous A1c 7.7 [id number] ----Lot [id number] ----Exp date [id number] Summary Purpose [employer] Submission
--- OUTSIDE RECORDS SUMMARY | 2017-11-11 10:06 | XMS REPORT ---
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 Sep, Active 638062173 Problem Typical atrial flutter I48.3 Active 949737917 Problem Dilated cardiomyopathy I42.0 Active 741200504 Problem Hx of atrioventricular node ablation Z98.890 12 Sep, 2016 Active 105925163 Problem Persistent atrial fibrillation I48.1 Active 292471755 Problem Hx of renal calculi Z87.442 Active 209163400 Problem S/P CABG (coronary artery bypass graft) Z95.1 Active 758945356 Problem Coronary artery disease involving [place] coronary artery of [place] heart without angina pectoris I25.10 Active 6048938671184 Problem Type 2 diabetes mellitus without complication E11.9 Active 15880492 Problem Non-ischemic cardiomyopathy I42.9 Apr, Active 65290240 Problem Essential hypertension I10 Active 21601513 Problem 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 Active 998990864888399 Problem Atypical atrial flutter I48.4 Apr, Active 4864315 ALLERGIES No Known Allergies SOCIAL HISTORY No smoking Hx information available PLAN OF CARE VITAL SIGNS MEDICATIONS Medication Instructions Dosage Frequency Start Date End Date Duration Status Furosemide 40 MG Orally Twice a day 1 tablet 12h Active Blood Glucose Test Strip Test Strips test blood sugar 12h Sep, 30 days Active Blood Glucose Meter 1 glucometer test blood sugar 12h Sep, lifetime Active Eliquis 5 MG Orally 2 times a day per interactive marketing strategist 1 tablet Apr, Active Cod Liver Oil Active Garlic 1000 MG Active GlyBURIDE 5 mg Orally Once a day 1/2 tablet 24h Mar, Active Allopurinol 100 MG Orally Once a day 1 tablet 24h Mar, Active Entresto 24-26 MG Orally Twice a day 1 tablet 12h Active Lancets Ultra Thin Lancets test blood sugar 12h Sep, 30 days Active RESULTS No Results PROCEDURES No Known procedures IMMUNIZATIONS No Known Immunizations
--- OUTSIDE RECORDS SUMMARY | 2017-11-11 10:06 | XMS REPORT ---
Author Author SAPPHIRE FRANK [facility] [employer] Address Unknown Phone Unavailable Care Team Providers Care Lead Printer Name Role Phone SAPPHIRE FRANK CP Unavailable Allergies, Adverse Reactions, Alerts Substance Reaction Event Type N.K.D.A. 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 Apr 17, 2015 Active Problem Atypical atrial flutter I48.4 Apr 17, 2015 Active Problem Type 2 diabetes mellitus without complication E11.9 Active Problem S/P CABG (coronary artery bypass graft) Z95.1 Active Problem Essential hypertension I10 Active Problem Non-ischemic cardiomyopathy I42.9 Apr 17, 2015 Active Medications Medication Code System Code Instructions Start Date End Date Status Dosage Atorvastatin Calcium [facility] 85162510280 10 MG Orally Once a day Pt an appt for further refills 1 tablet Eliquis [facility] [address]-50 5 MG Orally 2 times a day per sr. social media & mobile manager Apr 1 tablet Benazepril HCl [facility] [address]-04 40 MG Orally Once a day March 07, 2015 1 tablet Aspir-81 [facility] [address]-24 81 MG Orally Once a day 1 tablet Atenolol [facility] [address]-17 25 MG take 1 tablet by Oral route 1 time per day Spironolactone [facility] [address]-36 25 MG every other day TAKE ONE TABLET BY MOUTH ONCE DAILY MetFORMIN HCl ER [facility] 69791261729 500 MG TAKE ONE TABLET BY MOUTH ONCE DAILY Metoprolol Succinate ER [facility] 51399624742 50 MG TAKE ONE TABLET BY MOUTH ONCE DAILY Furosemide [facility] [address]-10 40 MG Orally Once a day 1 tablet Procedures Procedure Coding System Code Date [facility] VISIT ESTABLISHED PATIENT CPT-4 G0467 Aug 24, 2015 Office Visit, Est Pt., Level 3 CPT-4 71400 Aug 24, 2015 GLYCATED HEMOGLOBIN TEST CPT-4 52553 Aug 24, 2015 Vital Signs Date/Time: Aug 24, 2015 Temperature 97.4 F Weight 194.9 lbs Height 74 in BMI 25.02 Index Blood Pressure Diastolic 80 mmHg Blood Pressure Systolic 130 mmHg Cardiac Monitoring Heart Rate 72 bpm Results No Known Results Summary Purpose [employer]ClinicalWorks Submission
--- OUTSIDE RECORDS SUMMARY | 2017-11-11 10:06 | XMS REPORT ---
Author Author DEUAR PAULA Organization [facility] Address [address] [place] [address] Care Team Providers Care Spa Assistant Manager Name Role Phone EDUAR PAULA Unavailable PROBLEMS Type Condition ICD9-CM Code [id number] Code Onset Dates Condition Status SNOMED Code Problem Nonsustained ventricular tachycardia I47.2 Active 630238056 Problem Acute on chronic systolic (congestive) heart failure I50.23 Active 691473381 Problem Chronic gout, unspecified cause, unspecified site M1A.9XX0 Active 35074262 Problem Gait disturbance R26.9 Active 03842160 Problem 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 Sep, Active 410259501 Problem Typical atrial flutter I48.3 Active 408013167 Problem Dilated cardiomyopathy I42.0 Active 495773838 Problem Hx of atrioventricular node ablation Z98.890 12 Sep, 2016 Active 347127306 Problem Persistent atrial fibrillation I48.1 Active 807853211 Problem Hx of renal calculi Z87.442 Active 853175442 Problem S/P CABG (coronary artery bypass graft) Z95.1 Active 062919307 Problem Coronary artery disease involving [place] coronary artery of [place] heart without angina pectoris I25.10 Active 7025843023679 Problem Type 2 diabetes mellitus without complication E11.9 Active 21511412 Problem Non-ischemic cardiomyopathy I42.9 Apr, Active 87575929 Problem Essential hypertension I10 Active 17977909 Problem 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 Active 353975701176239 Problem Atypical atrial flutter I48.4 Apr, Active 4362195 ALLERGIES No Information SOCIAL HISTORY Never Assessed PLAN OF CARE VITAL SIGNS MEDICATIONS Medication Instructions Dosage Frequency Start Date End Date Duration Status Aspir-81 81 MG Orally Once a day 1 tablet 24h Active Blood Glucose Test Strip Test Strips test blood sugar 12h Sep, 30 days Active Furosemide 40 MG Orally Twice a day 1 tablet 12h Active Cod Liver Oil Active Blood Glucose Meter 1 glucometer test blood sugar 12h Sep, lifetime Active GlyBURIDE 5 mg Orally Once a day 1/2 tablet 24h Mar, Active Augmentin 875-125 MG Orally 2 times a day with meals 1 tablet Oct, Oct, Active Garlic 1000 MG Active Allopurinol 100 mg Orally Once a day 1 tablet 24h Active Lancets Ultra Thin Lancets test blood sugar 12h Sep, 30 days Active Entresto 24-26 MG Orally Twice a day 1 tablet 12h Active Eliquis 2.5 MG Orally 2 times a day 1 tablet 12h Apr, Active Metoprolol Succinate ER 50 mg Orally Once a day 1 tablet 24h Active Amiodarone HCl 200 MG Orally Once a day 1 tablet 24h Active Metoprolol Succinate 50 mg Orally at bedtime 1/2 tablet Active Tamiflu 75 MG Orally Twice a day 1 capsule 12h Oct, Oct, Active RESULTS No Results PROCEDURES No Known procedures IMMUNIZATIONS No Known Immunizations MEDICAL (GENERAL) HISTORY Type Description Date Medical History hypertension Medical History type II diabetes Medical History hx of kidney stones Medical History hx viral cardiomyopathy Medical History CAD s/p CABG X5 2009 Medical History Atrial Flutter s/p Cardioversion 04/2015, s/p ablation 06/2015 Medical History CHF - chronic, systolic and diastolic heart failure; EF 06/16 33% Medical History Hyperlipidemia Medical History Non-ischemic cardiomyopathy (possibly tachycardia induced) Medical History Gout Medical History History of placement of internal cardiac defibrillator 01/2015 Medical History AV node ablation w/ upgrade of device to pacemaker/ defibrillator 09/13/16 (Dr. Hernández) Surgical History Cardiac Ablation Surgical History Cardiac Bypasses x5 2012 Surgical History History of placement of internal cardiac defibrillator ( [place]) 02/2016 Surgical History implantable cardioverter/defibrillator [facility] 09/2016 Surgical History AV node ablation 09/2016 Hospitalization History Heart Monitoring 2012 Hospitalization History influenza A, Sepsis, Pneumonia, Elevated liver enzymes -[facility] 10/21/16
--- OUTSIDE RECORDS SUMMARY | 2017-11-11 10:06 | XMS REPORT ---
Author Author JESICA PATRICK Organization [facility] Address [address] [place], [place] [address] Care Team Providers Care Audio Production Manager Name Role Phone JESICA PATRICK Unavailable PROBLEMS Type Condition ICD9-CM Code [id number] Code Onset Dates Condition Status SNOMED Code Problem S/P CABG (coronary artery bypass graft) Z95.1 Active 729364924 Problem Non-ischemic cardiomyopathy I42.9 16 Apr, 2015 Active 58382430 Problem Type 2 diabetes mellitus without complication E11.9 Active 80461398 Problem Chronic gout, unspecified cause, unspecified site M1A.9XX0 Active 80484293 Problem History of placement of internal cardiac defibrillator Z95.810 Active 825237904 Problem 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 Active 643402825627258 Problem Essential hypertension I10 Active 31495255 Problem Atypical atrial flutter I48.4 Apr, Active 3057003 Problem Coronary artery disease involving [place] coronary artery of circle heart without angina pectoris I25.10 Active 6009525943026 Assessment Dilated cardiomyopathy I42.0 May, Active 327890131 Assessment Coronary artery disease involving [place] coronary artery of circle heart without angina pectoris I25.10 May, Active 1151834218917 Problem Nonsustained ventricular tachycardia I47.2 Active 620273473 Assessment Typical atrial flutter I48.3 07 May, 2016 Active 6368722 Problem Hx of renal calculi Z87.442 Active 720890334 ALLERGIES Unknown Allergies SOCIAL HISTORY No smoking Hx information available PLAN OF CARE VITAL SIGNS MEDICATIONS Unknown Medications RESULTS Name Result Date Reference Range DIGOXIN 2016-05-09 Digoxin, Serum 1.1 0.9-2.0 MAGNESIUM, SERUM 2016-05-09 Magnesium, Serum 2.0 1.6-2.3 BMP 2016-05-09 Glucose, Serum 137 65-99 BUN 19 8-27 Creatinine, Serum 0.83 0.76-1.27 eGFR If NonAfricn Am 87 >59 eGFR If Africn Am 100 >59 BUN/Creatinine Ratio 23 10-22 Sodium, Serum 139 134-144 Potassium, Serum 4.7 3.5-5.2 Chloride, Serum 95 97-108 Carbon Dioxide, Total 27 18-29 Calcium, Serum 9.8 8.6-10.2 PROCEDURES Procedure Date Ordered Related Diagnosis Body Site LAB [facility] May 09, 2016 VENIPUNCT, ROUTINE* May 09, 2016 IMMUNIZATIONS No Known Immunizations
--- OUTSIDE RECORDS SUMMARY | 2017-11-11 10:06 | XMS REPORT ---
Author Author SAPPHIRE FRANK Organization [employer] Address Unknown Phone Unavailable Care Team Providers Care Skin Care Therapist Name Role Phone SAPPHIRE FRANK CP Unavailable Allergies No Known Allergies Problems Problem Type Condition ICD-9 Code Onset Dates Condition Status Problem CAD (coronary artery disease) 414.00 Active Medications No Known Medications Results No Known Results Summary Purpose [employer] Submission
--- OUTSIDE RECORDS SUMMARY | 2017-11-11 10:06 | XMS REPORT ---
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 Active Problem Acute on chronic systolic (congestive) heart failure I50.23 Active Assessment Status post internal cardiac defibrillator procedure Z95.810 Active Problem Dilated cardiomyopathy I42.0 Active Problem Typical atrial flutter I48.3 Active Problem History of placement of internal cardiac defibrillator Z95.810 Active Problem Atypical atrial flutter I48.4 Apr 17, 2015 Active Problem Status post internal cardiac defibrillator procedure Z95.810 Active Problem Chronic gout, unspecified cause, unspecified site M1A.9XX0 Active Assessment 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 Active Assessment Typical atrial flutter I48.3 Active Assessment Dilated cardiomyopathy I42.0 Active Assessment Acute on chronic systolic (congestive) heart failure I50.23 Active Problem Hx of renal calculi Z87.442 Active Problem S/P CABG (coronary artery bypass graft) Z95.1 Active Assessment Coronary artery disease involving [place] coronary artery of [place] heart without angina pectoris I25.10 Active Problem Type 2 diabetes mellitus without complication E11.9 Active Problem Nonsustained ventricular tachycardia I47.2 Active Problem Non-ischemic cardiomyopathy I42.9 Apr 17, 2015 Active Medications No Known Medications Procedures Procedure Coding System Code Date VENIPUNCT, ROUTINE* CPT-4 29793 Jul 06, 2016 [facility] C[facility] NOBLL Jul 06, 2016 Results Name Result Date Reference Range Unit Abnormality Flag ROUTINE VENIPUNCTURE Summary Purpose [employer]ClinicalWorks Submission
--- OUTSIDE RECORDS SUMMARY | 2017-11-11 10:06 | XMS REPORT ---
Author Author SAPPHIRE FRANK [facility] [employer] Address Unknown Phone Unavailable Care Team Providers Care Merchandise Adjustment Clerk Name Role Phone SAPPHIRE FRANK CP Unavailable Allergies No Known Allergies Problems Problem Type Condition Code Onset Dates Condition Status Problem Hx of renal calculi Z87.442 Active Problem Type 2 diabetes mellitus without complication E11.9 Active Problem S/P CABG (coronary artery bypass graft) Z95.1 Active Problem Nonsustained ventricular tachycardia I47.2 Active Problem History of placement of internal cardiac defibrillator Z95.810 Active Problem Atypical atrial flutter I48.4 Apr 17, 2015 Active Problem Chronic gout, unspecified cause, unspecified site M1A.9XX0 Active Problem Essential hypertension I10 Active Problem Non-ischemic cardiomyopathy I42.9 Apr 17, 2015 Active Problem Coronary artery disease involving [place] coronary artery of [place] heart without angina pectoris I25.10 Active Problem 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
--- OUTSIDE RECORDS SUMMARY | 2017-11-11 10:06 | XMS REPORT ---
Author Author JESICA PATRICK [facility] eClinicalWorks Address Unknown Phone Unavailable Care Team Providers Care Special Procedures Tech Name Role Phone JESICA PATRICK CP Unavailable Allergies No Known Allergies Problems Problem Type Condition Code Onset Dates Condition Status Problem Hx of renal calculi Z87.442 Active Problem Type 2 diabetes mellitus without complication E11.9 Active Problem S/P CABG (coronary artery bypass graft) Z95.1 Active Problem History of placement of internal cardiac defibrillator Z95.810 Active Problem Atypical atrial flutter I48.4 Apr 17, 2015 Active Problem Chronic gout, unspecified cause, unspecified site M1A.9XX0 Active Problem Essential hypertension I10 Active Problem Non-ischemic cardiomyopathy I42.9 Apr 17, 2015 Active Problem 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 Active Problem 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
--- OUTSIDE RECORDS SUMMARY | 2017-11-11 10:07 | XMS REPORT ---
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 Sep, Active 301197233 Problem Typical atrial flutter I48.3 Active 628290818 Problem Dilated cardiomyopathy I42.0 Active 269297864 Problem Hx of atrioventricular node ablation Z98.890 12 Sep, 2016 Active 634456110 Problem Persistent atrial fibrillation I48.1 Active 718417082 Problem Hx of renal calculi Z87.442 Active 480873291 Problem S/P CABG (coronary artery bypass graft) Z95.1 Active 203916807 Problem Coronary artery disease involving [place] coronary artery of [place] heart without angina pectoris I25.10 Active 2329000978882 Problem Type 2 diabetes mellitus without complication E11.9 Active 40434781 Problem Non-ischemic cardiomyopathy I42.9 Apr, Active 44301640 Problem Essential hypertension I10 Active 16267620 Problem 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
--- OUTSIDE RECORDS SUMMARY | 2017-11-11 10:07 | XMS REPORT ---
Author Author SAPPHIRE FRANK Organization eClinicalWorks Address Unknown Phone Unavailable Care Team Providers Care Cfo Name Role Phone SAPPHIRE FRANK CP Unavailable Allergies No Known Allergies Problems Problem Type Condition Code Onset Dates Condition Status Problem Hx of renal calculi Z87.442 Active Problem Type 2 diabetes mellitus without complication E11.9 Active Problem S/P CABG (coronary artery bypass graft) Z95.1 Active Assessment Chronic gout, unspecified cause, unspecified site M1A.9XX0 Active Problem Nonsustained ventricular tachycardia I47.2 Active Problem History of placement of internal cardiac defibrillator Z95.810 Active Problem Atypical atrial flutter I48.4 Apr 17, 2015 Active Problem Chronic gout, unspecified cause, unspecified site M1A.9XX0 Active Problem Essential hypertension I10 Active Problem Non-ischemic cardiomyopathy I42.9 Apr 17, 2015 Active Problem Coronary artery disease involving [place] coronary artery of [place] heart without angina pectoris I25.10 Active Problem 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
--- OUTSIDE RECORDS SUMMARY | 2017-11-11 10:07 | XMS REPORT ---
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 Sep, Active 124084582 Problem Typical atrial flutter I48.3 Active 669849590 Problem Dilated cardiomyopathy I42.0 Active 417722531 Problem Hx of atrioventricular node ablation Z98.890 12 Sep, 2016 Active 470646605 Problem Persistent atrial fibrillation I48.1 Active 921478011 Problem Hx of renal calculi Z87.442 Active 544028172 Problem S/P CABG (coronary artery bypass graft) Z95.1 Active 781178104 Problem Coronary artery disease involving [place] coronary artery of [place] heart without angina pectoris I25.10 Active 3624937191168 Problem Type 2 diabetes mellitus without complication E11.9 Active 90768811 Problem Non-ischemic cardiomyopathy I42.9 Apr, Active 17775578 Problem Essential hypertension I10 Active 10881900 Problem 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 Active 148799408871635 Problem Atypical atrial flutter I48.4 Apr, Active 6508205 ALLERGIES No Known Allergies SOCIAL HISTORY No smoking Hx information available PLAN OF CARE VITAL SIGNS MEDICATIONS No Known Medications RESULTS Name Result Date Reference Range MAGNESIUM, SERUM 2016-09-06 Magnesium, Serum 1.9 1.6-2.3 CBC 2016-09-06 WBC 8.0 3.4-10.8 RBC 6.04 4.14-5.80 Hemoglobin 16.5 12.6-17.7 Hematocrit 51.1 37.5-51.0 MCV 85 79-97 MCH 27.3 26.6-33.0 MCHC 32.3 31.5-35.7 RDW 18.4 12.3-15.4 Platelets 153 150-379 Neutrophils 69 Lymphs 19 Monocytes 10 Eos 2 Basos 0 Neutrophils (Absolute) 5.5 1.4-7.0 Lymphs (Absolute) 1.5 0.7-3.1 Monocytes(Absolute) 0.8 0.1-0.9 Eos (Absolute) 0.2 0.0-0.4 Baso (Absolute) 0.0 0.0-0.2 Immature Granulocytes 0 Immature Grans (Abs) 0.0 0.0-0.1 BMP 2016-09-06 Glucose, Serum 144 65-99 BUN 15 8-27 Creatinine, Serum 0.84 0.76-1.27 eGFR If NonAfricn Am 86 >59 eGFR If Africn Am 100 >59 BUN/Creatinine Ratio 18 10-22 Sodium, Serum 144 134-144 Potassium, Serum 4.0 3.5-5.2 Chloride, Serum 98 96-106 Carbon Dioxide, Total 31 18-29 Calcium, Serum 8.9 8.6-10.2 PROCEDURES Procedure Date Ordered Related Diagnosis Body [facility] Sep 06, 2016 VENIPUNCT, ROUTINE* Sep 06, 2016 IMMUNIZATIONS No Known Immunizations
--- OUTSIDE RECORDS SUMMARY | 2017-11-11 10:08 | XMS REPORT ---
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
--- OUTSIDE RECORDS SUMMARY | 2017-11-11 10:08 | XMS REPORT ---
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
--- OUTSIDE RECORDS SUMMARY | 2017-11-11 10:08 | XMS REPORT ---
Author KYLE Delgado [facility] eClinicalWorks Address Unknown Phone Unavailable Care Team Providers Care Wrapper Sizer Name Role Phone KYLE FARIAS CP Unavailable Allergies No Known Allergies Problems Problem Type Condition ICD-9 Code Onset Dates Condition Status Problem CAD (coronary artery disease) 414.00 Active Medications Medication Code System Code Instructions Start Date End Date Status Dosage Furosemide [facility] [address]-91 40 MG Orally Once a day 1 tablet Results No Known Results Summary Purpose eClinicalWorks Submission
--- OUTSIDE RECORDS SUMMARY | 2017-11-11 10:08 | XMS REPORT ---
Author Author SAPPHIRE FRANK Organization eClinicalWorks Address Unknown Phone Unavailable Care Team Providers Care Bronze Chaser Name Role Phone SAPPHIRE FRANK CP Unavailable Allergies No Known Allergies Problems Problem Type Condition ICD-9 Code Onset Dates Condition Status Problem CAD (coronary artery disease) 414.00 Active Medications Medication Code System Code Instructions Start Date End Date Status Dosage MetFORMIN HCl ER [facility] [address]-13 500 MG Orally Once a day from hospital Apr 25, 2015 1 tablet with evening meal Toprol XL [facility] [address]-96 50 MG Orally Once a day from hospital Apr 25, 2015 1 tablet Spironolactone [facility] [address]-78 25 MG Orally Once a day from hospital Apr 25, 2015 May 25, 2015 1 tablet Eliquis [facility] [address]-14 5 MG Orally 2 times a day per textile knitter Apr 1 tablet Results No Known Results Summary Purpose eClinicalWorks Submission
--- OUTSIDE RECORDS SUMMARY | 2017-11-11 10:08 | XMS REPORT ---
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 Sep, Active 705960680 Problem Typical atrial flutter I48.3 Active 233303522 Problem Dilated cardiomyopathy I42.0 Active 077751844 Problem Hx of atrioventricular node ablation Z98.890 12 Sep, 2016 Active 575185558 Problem Persistent atrial fibrillation I48.1 Active 658811092 Problem Hx of renal calculi Z87.442 Active 729953846 Problem S/P CABG (coronary artery bypass graft) Z95.1 Active 645243922 Problem Coronary artery disease involving [place] coronary artery of [place] heart without angina pectoris I25.10 Active 4505262673467 Problem Type 2 diabetes mellitus without complication E11.9 Active 83692014 Problem Non-ischemic cardiomyopathy I42.9 Apr, Active 14261479 Problem Essential hypertension I10 Active 38259533 Problem 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 Active 820074282167181 Problem Atypical atrial flutter I48.4 Apr, Active 3617759 ALLERGIES No Information SOCIAL HISTORY Never Assessed PLAN OF CARE VITAL SIGNS MEDICATIONS No Known Medications RESULTS No Results PROCEDURES No Known procedures IMMUNIZATIONS No Known Immunizations MEDICAL (GENERAL) HISTORY Type Description Date Medical History hypertension Medical History type II diabetes Medical History hx of kidney stones Medical History hx viral cardiomyopathy Medical History CAD s/p CABG X5 2010 Medical History Atrial Flutter s/p Cardioversion 04/2015, [...] influenza A, Sepsis, Pneumonia, Elevated liver enzymes -[facility] 10/21/16
--- OUTSIDE RECORDS SUMMARY | 2017-11-11 10:08 | XMS REPORT ---
Author Author SAPPHIRE FRANK Organization eClinicalWorks Address Unknown Phone Unavailable Care Team Providers Care Small Lot Operator Name Role Phone SAPPHIRE FRANK CP Unavailable Allergies No Known Allergies Problems Problem Type Condition ICD-9 Code Onset Dates Condition Status Problem CAD (coronary artery disease) 414.00 Active Medications No Known Medications Results No Known Results Summary Purpose eClinicalWorks Submission
--- OUTSIDE RECORDS SUMMARY | 2017-11-11 10:08 | XMS REPORT ---
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 Sep, Active 904555897 Problem Typical atrial flutter I48.3 Active 569993517 Problem Dilated cardiomyopathy I42.0 Active 800108583 Problem Hx of atrioventricular node ablation Z98.890 12 Sep, 2016 Active 742688656 Problem Persistent atrial fibrillation I48.1 Active 910906119 Problem Hx of renal calculi Z87.442 Active 399327140 Problem S/P CABG (coronary artery bypass graft) Z95.1 Active 318727577 Problem Coronary artery disease involving [place] coronary artery of [place] heart without angina pectoris I25.10 Active 1728167401918 Problem Type 2 diabetes mellitus without complication E11.9 Active 76395978 Problem Non-ischemic cardiomyopathy I42.9 Apr, Active 19058273 Problem Essential hypertension I10 Active 26518411 Problem 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 Active 610906063118277 Problem Atypical atrial flutter I48.4 Apr, Active 5567257 ALLERGIES No Information SOCIAL HISTORY Never Assessed PLAN OF CARE VITAL SIGNS MEDICATIONS No Known Medications RESULTS Name Result Date Reference Range MAGNESIUM, SERUM 2016-10-15 Magnesium, Serum 1.7 1.6-2.3 CMP 2016-10-15 Glucose, Serum 161 65-99 BUN 16 8-27 Creatinine, Serum 0.90 0.76-1.27 eGFR If NonAfricn Am 83 >59 eGFR If Africn Am 96 >59 BUN/Creatinine Ratio 18 10-22 Sodium, Serum 139 134-144 Potassium, Serum 4.3 3.5-5.2 Chloride, Serum 98 96-106 Carbon Dioxide, Total 24 18-29 Calcium, Serum 8.9 8.6-10.2 Protein, Total, Serum 6.7 6.0-8.5 Albumin, Serum 3.6 3.5-4.8 Globulin, Total 3.1 1.5-4.5 A/G Ratio 1.2 1.1-2.5 Bilirubin, Total 1.9 0.0-1.2 Alkaline Phosphatase, S 120 39-117 AST (SGOT) 18 0-40 ALT (SGPT) 14 0-44 PROCEDURES Procedure Date Ordered Result Body Site LAB NOT BILLED BY [facility] Oct 15, 2016 VENIPUNCT, ROUTINE* Oct 15, 2016 IMMUNIZATIONS No Known Immunizations MEDICAL (GENERAL) HISTORY [...] influenza A, Sepsis, Pneumonia, Elevated liver enzymes -[facility] 10/21/16
--- OUTSIDE RECORDS SUMMARY | 2017-11-11 10:08 | XMS REPORT ---
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 12 Sep, 2016 Active 606438039 Problem Typical atrial flutter I48.3 Active 508149249 Problem Dilated cardiomyopathy I42.0 Active 317523219 Problem Hx of atrioventricular node ablation Z98.890 12 Sep, 2016 Active 003242234 Problem Persistent atrial fibrillation I48.1 Active 090935620 Problem Hx of renal calculi Z87.442 Active 170234333 Problem S/P CABG (coronary artery bypass graft) Z95.1 Active 381613484 Problem Coronary artery disease involving [place] coronary artery of [place] heart without angina pectoris I25.10 Active 5007655662804 Problem Type 2 diabetes mellitus without complication E11.9 Active 59878155 Problem Non-ischemic cardiomyopathy I42.9 Apr, Active 50178242 Problem Essential hypertension I10 Active 01405998 Problem 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
--- OUTSIDE RECORDS SUMMARY | 2017-11-11 10:08 | XMS REPORT ---
Author Author SAPPHIRE FRANK Organization eClinicalWorks Address Unknown Phone Unavailable Care Team Providers Care Form Layer Name Role Phone SAPPHIRE FRANK CP Unavailable Allergies No Known Allergies Problems Problem Type Condition ICD-9 Code Onset Dates Condition Status Assessment A-fib 427.31 Active Assessment Chronic ischemic heart disease, 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 Active Problem CAD (coronary artery disease) 414.00 Active Assessment Diabetes with hyperosmolarity, type II or unspecified type, uncontrolled 250.22 Active Assessment Ischemic cardiomyopathy 414.8 Active Assessment Chronic combined systolic and diastolic heart failure 428.42 Active Medications No Known Medications Procedures Procedure Coding System Code Date VENIPUNCT, ROUTINE* CPT-4 06029 Apr 26, 2015 [facility] NOB[facility] Apr 26, 2015 Results Name Result Date Reference Range Unit Abnormality Flag ROUTINE VENIPUNCTURE Summary Purpose eClinicalWorks Submission
--- OUTSIDE RECORDS SUMMARY | 2017-11-11 10:09 | XMS REPORT | Continuity of Care Document ---
Author Author [facility] Address Unknown Phone Unavailable Allergies Active Description Code Type Severity Reaction Onset Reported/Identified Relationship to Patient Clinical Status Yes No Known Drug Allergies [id number] Drug Allergy Unknown N/A 04/17/2015 Medications There is no data. Problems Date Dx Coded Attending Type Code Diagnosis Diagnosed By 03/30/2008 ROME FRANK APRNA S 250.00 DIABETES MELLITUS TYPE 2 03/30/2008 250.00 DIABETES MELLITUS TYPE 2 03/30/2008 250.00 DIABETES MELLITUS TYPE 2 03/30/2008 250.00 DIABETES MELLITUS TYPE 2 03/30/2008 KUN BASILIO MD 250.00 DIABETES MELLITUS TYPE 2 03/30/2008 EMORY FRANK APRNNDA S 250.00 DIABETES MELLITUS TYPE 2 03/30/2008 EMORY FRANK APRNNDA S 250.00 DIABETES MELLITUS TYPE 2 03/30/2008 KYLE FARIAS DO 250.00 DIABETES MELLITUS TYPE 2 07/01/2008 EMORY FRANK APRNNDA S 401.1 HYPERTENSION, BENIGN ESSENTIAL 07/01/2008 401.1 HYPERTENSION, BENIGN ESSENTIAL 07/01/2008 401.1 HYPERTENSION, BENIGN ESSENTIAL 07/01/2008 401.1 HYPERTENSION, BENIGN ESSENTIAL 07/01/2008 KUN BASILIO MD 401.1 HYPERTENSION, BENIGN ESSENTIAL 07/01/2008 EMORY FRANK APRNNDA S 401.1 HYPERTENSION, BENIGN ESSENTIAL 07/01/2008 EMORY FRANK APRNNDA S 401.1 HYPERTENSION, BENIGN ESSENTIAL 07/01/2008 KYLE FARIAS DO 401.1 HYPERTENSION, BENIGN ESSENTIAL 05/15/2010 EMORY FRANK APRNNDA S 429.3 ATHLETE'S HEART 05/15/2010 EMORY FRANK APRNNDA S V76.44 psa screening 05/15/2010 429.3 ATHLETE'S HEART 05/15/2010 V76.44 psa screening 05/15/2010 429.3 ATHLETE'S HEART 05/15/2010 V76.44 psa screening 05/15/2010 429.3 ATHLETE'S HEART 05/15/2010 V76.44 psa screening 05/15/2010 KUN BASILIO MD 429.3 ATHLETE'S HEART 05/15/2010 KUN BASILIO MD V76.44 psa screening 05/15/2010 ZAC MEAT TEAM LEAD, SAPPHIRE S 429.3 ATHLETE'S HEART 05/15/2010 ZAC MEAT TEAM LEADEMORY PonceNDA S V76.44 psa screening 05/15/2010 ZAC MEAT TEAM LEAD, SAPPHIRE S 429.3 ATHLETE'S HEART 05/15/2010 ZAC MEAT TEAM LEAD, SAPPHIRE S V76.44 psa screening 05/15/2010 FARIAS DO KYLE K 429.3 ATHLETE'S HEART 05/15/2010 FARIAS DO KYLE K V76.44 psa screening 04/28/2012 EMORY FRANK APRNNDA S 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 [place] OR GRAFT 04/28/2012 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 [place] OR GRAFT 04/28/2012 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 [place] OR GRAFT 04/28/2012 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 [place] OR GRAFT 04/28/2012 KUN BASILIO MD 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 [place] OR GRAFT 04/28/2012 ZAC CASTRO SAPPHIRE S 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 [place] OR GRAFT 04/28/2012 EMORY FRANK APRNNDA S 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 [place] OR GRAFT 04/28/2012 FARIAS DO, KYLE K 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 [place] OR GRAFT 04/19/2015 FARIAS DO, KYLE K Ot 250.00 04/19/2015 FARIAS DO, KYLE K Ot 272.4 04/19/2015 FARIAS DO, KYLE K Ot 401.9 04/19/2015 FARIAS DO, KYLE K Ot 414.00 04/19/2015 FARIAS DO, KYLE K Ot 425.9 04/19/2015 FARIAS DO, KYLE K Ot 427.32 04/19/2015 FARIAS DO, KYLE K Ot 428.0 04/19/2015 FARIAS DO, KYLE K Ot 428.41 04/19/2015 FARIAS DO, KYLE K Ot V15.82 04/19/2015 FARIAS DO, KYLE K Ot V45.81 04/20/2015 FARIAS DO, KYLE K Ot 250.00 04/20/2015 AFRIAS DO, KYLE K Ot 272.4 04/20/2015 FARIAS DO, KYLE K Ot 401.9 04/20/2015 FARIAS DO, KYLE K Ot 414.00 04/20/2015 FARIAS DO, KYLE K Ot 425.9 04/20/2015 FARIAS DO, KYLE K Ot 427.32 04/20/2015 FARIAS DO, KYLE K Ot 428.0 04/20/2015 FARIAS DO, KYLE K Ot 428.41 04/20/2015 FARIAS DO, KYLE K Ot V15.82 04/20/2015 FARIAS DO, KYLE K Ot V45.81 04/20/2015 FARIAS DO, KYLE K Ot 250.00 DIAB KARLI WO COMPL, TYPE II OR UNSPEC TY 04/20/2015 FARIAS DO, KYLE K Ot 272.4 HYPERLIPIDEMIA NEC/NOS 04/20/2015 FARIAS DO, KYLE K Ot 401.9 HYPERTENSION NOS 04/20/2015 FARIAS DO, KYLE K Ot 414.00 CORON ATHEROSCLER NOS TYPE VESSEL, NATIV 04/20/2015 FARIAS DO, KYLE K Ot 414.8 CHR ISCHEMIC HRT DIS NEC 04/20/2015 FARIAS DO, KYLE K Ot 425.9 SECOND CARDIOMYOPATH NOS 04/20/2015 FARIAS DO, KYLE K Ot 427.32 ATRIAL FLUTTER 04/20/2015 FARIAS DO, KYLE K Ot 428.0 CONGESTIVE HEART FAILURE NOS 04/20/2015 FARIAS DO, KYLE K Ot 428.41 ACUTE SYSTOLIC/DIASTOLIC HRT FAILURE 04/20/2015 FARIAS DO, KYLE K Ot V15.82 HISTORY OF TOBACCO USE 04/20/2015 FARIAS DO, KYLE K Ot V45.81 AORTOCORONARY BYPASS 04/28/2015 FARIAS DO, KYLE K Ot 250.00 04/28/2015 FARIAS DO, KYLE K Ot 272.4 04/28/2015 FARIAS DO, KYLE K Ot 401.9 04/28/2015 FARIAS DO, KYLE K Ot 414.00 04/28/2015 FARIAS DO, KYLE K Ot 414.8 04/28/2015 FARIAS DO, KYLE K Ot 425.9 04/28/2015 FARIAS DO, KYLE K Ot 427.32 04/28/2015 FARIAS DO, KYLE K Ot 428.0 04/28/2015 FARIAS DO, KYLE K Ot 428.41 04/28/2015 FARIAS DO, KYLE K Ot V15.82 04/28/2015 FARIAS DO, KYLE K Ot V45.81 04/28/2015 FARIAS DO, KYLE K Ot 250.00 04/28/2015 FARIAS DO, KYLE K Ot 272.4 04/28/2015 FARIAS DO, KYLE K Ot 401.9 04/28/2015 FARIAS DO, KYLE K Ot 414.00 04/28/2015 FARIAS DO, KYLE K Ot 414.8 04/28/2015 FARIAS DO, KYLE K Ot 425.9 04/28/2015 FARIAS DO, KYLE K Ot 427.32 04/28/2015 FARIAS DO, KYLE K Ot 428.0 04/28/2015 FARIAS DO, KYLE K Ot 428.41 04/28/2015 FARIAS DO, KYLE K Ot V15.82 04/28/2015 FARIAS DO, KYLE K Ot V45.81 04/28/2015 FARIAS DO, KYLE K Ot 250.00 04/28/2015 FARIAS DO, KYLE K Ot 272.4 04/28/2015 FARIAS DO, KYLE K Ot 401.9 04/28/2015 FARIAS DO, KYLE K Ot 414.00 04/28/2015 FARIAS DO, KYLE K Ot 414.8 04/28/2015 FARIAS DO, KYLE K Ot 425.9 04/28/2015 FARIAS DO, KYLE K Ot 427.32 04/28/2015 FARIAS DO, KYLE K Ot 428.0 04/28/2015 FARIAS DO, KYLE K Ot 428.41 04/28/2015 FARIAS DO, KYLE K Ot V15.82 04/28/2015 FARIAS DO, KYLE K Ot V45.81 04/28/2015 FARIAS DO, KYLE K Ot 250.00 04/28/2015 FARIAS DO, KYLE K Ot 272.4 04/28/2015 FARIAS DO, KYLE K Ot 401.9 04/28/2015 FARIAS DO, KYLE K Ot 414.00 04/28/2015 FARIAS DO, KYLE K Ot 414.8 04/28/2015 FARIAS DO, KYLE K Ot 425.9 04/28/2015 FARIAS DO, KYLE K Ot 427.32 04/28/2015 FARIAS DO, KYLE K Ot 428.0 04/28/2015 FARIAS DO, KYLE K Ot 428.41 04/28/2015 FARIAS DO, KYLE K Ot V15.82 04/28/2015 FARIAS DO, KYLE K Ot V45.81 06/08/2015 DARNELL ROSARIO FACC, ALI FACP CCDS Ot 250.22 06/08/2015 DARNELL ROSARIO FACC, ALI FACP CCDS Ot 414.8 06/08/2015 DARNELL MD FACC, ALI FACP CCDS Ot 427.32 06/08/2015 DARNELL MD FACC, ALI FACP CCDS Ot 428.42 06/15/2015 DARNELL ROSARIO FACC, ALI FACP CCDS Ot 250.00 06/15/2015 DARNELL ROSARIO FACC, ALI FACP CCDS Ot 414.9 06/15/2015 DARNELL ROSARIO FACC, ALI FACP CCDS Ot 425.4 06/15/2015 DARNELL ROSARIO FACC, ALI FACP CCDS Ot 427.32 06/15/2015 DARNELL ROSARIO FACC, ALI FACP CCDS Ot 428.42 06/28/2015 DARNELL ROSARIO FACC, ALI FACP CCDS Ot 250.22 06/28/2015 DARNELL ROSARIO FACC, ALI FACP CCDS Ot 414.8 06/28/2015 DARNELL ROSARIO FACC, ALI FACP CCDS Ot 427.32 06/28/2015 DARNELL ROSARIO FACC, ALI FACP CCDS Ot 428.42 07/01/2015 DARNELL ROSARIO FACC, ALI FACP CCDS Ot 250.00 07/01/2015 DARNELL ROSARIO FACC, ALI FACP CCDS Ot 414.9 07/01/2015 DARNELL ROSARIO FACC, ALI FACP CCDS Ot 425.4 07/01/2015 DARNELL ROSARIO FACC, ALI FACP CCDS Ot 427.32 07/01/2015 DARNELL ROSARIO FACC, ALI FACP CCDS Ot 428.42 10/14/2015 DARNELL ROSARIO FACC, ALI FACP CCDS Ot 250.22 10/14/2015 DARNELL ROSARIO FACC, ALI FACP CCDS Ot 414.8 10/14/2015 DARNELL ROSARIO FACC, ALI FACP CCDS Ot 427.32 10/14/2015 DARNELL ROSARIO [facility], ALI FACP CCDS Ot 428.42 10/14/2015 DARNELL ROSARIO [facility], ALI FACP CCDS Ot 250.00 10/14/2015 DARNELL ROSARIO [facility], ALI FACP CCDS Ot 414.9 10/14/2015 DARNELL ROSARIO [facility], ALI FACP CCDS Ot 425.4 10/14/2015 DARNELL ROSARIO [facility], ALI FACP CCDS Ot 427.32 10/14/2015 DARNELL ROSARIO [facility], ALI FACP CCDS Ot 428.42 11/04/2015 DARNELL ROSARIO [facility], ALI FACP CCDS Ot E11.9 11/04/2015 DARNELL ROSARIO [facility], ALI FACP CCDS Ot I25.10 11/04/2015 DARNELL ROSARIO [facility], ALI FACP CCDS Ot I42.0 11/04/2015 DARNELL MD [facility], ALI FACP CCDS Ot I48.3 11/28/2015 DARNELL ROSARIO [facility], ALI FACP CCDS Ot E11.9 11/28/2015 DARNELL MD [facility], ALI FACP CCDS Ot I25.10 11/28/2015 DARNELL MD [facility], ALI FACP CCDS Ot I42.0 11/28/2015 DARNELL MD [facility], ALI FACP CCDS Ot I48.3 01/23/2016 WALDEMAR BERGERON MD Ot E11.9 TYPE 2 DIABETES MELLITUS WITHOUT COMPLIC 01/23/2016 WALDEMAR BERGERON MD Ot I10 ESSENTIAL (PRIMARY) HYPERTENSION 01/23/2016 WALDEMAR BERGERON MD Ot I25.10 ATHSCL HEART DISEASE OF [place] CORONARY 01/23/2016 WALDEMAR BERGERON MD Ot I25.5 ISCHEMIC CARDIOMYOPATHY 01/23/2016 WALDEMAR BERGERON MD Ot I47.2 VENTRICULAR TACHYCARDIA 01/23/2016 WALDEMAR BERGERON MD Ot I48.91 UNSPECIFIED ATRIAL FIBRILLATION 01/23/2016 WALDEMAR BERGERON MD Ot I50.23 ACUTE ON CHRONIC SYSTOLIC (CONGESTIVE) H 01/23/2016 WALDEMAR BERGERON MD Ot Z87.891 PERSONAL HISTORY OF NICOTINE DEPENDENCE 01/23/2016 WALDEMAR BERGERON MD Ot Z95.1 PRESENCE OF AORTOCORONARY BYPASS GRAFT 01/24/2016 WALDEMAR BERGERON MD Ot E11.9 TYPE 2 DIABETES MELLITUS WITHOUT COMPLIC 01/24/2016 WALDEMAR BERGERON MD Ot I10 ESSENTIAL (PRIMARY) HYPERTENSION 01/24/2016 WALDEMAR BERGERON MD Ot I25.10 ATHSCL HEART DISEASE OF [place] CORONARY 01/24/2016 WALDEMAR BERGERON MD Ot I25.5 ISCHEMIC CARDIOMYOPATHY 01/24/2016 WALDEMAR BERGERON MD Ot I47.2 VENTRICULAR TACHYCARDIA 01/24/2016 WALDEMAR BERGERON MD Ot I48.91 UNSPECIFIED ATRIAL FIBRILLATION 01/24/2016 WALDEMAR BERGERON MD Ot I50.23 ACUTE ON CHRONIC SYSTOLIC (CONGESTIVE) H 01/24/2016 WALDEMAR BERGERON MD Ot Z87.891 PERSONAL HISTORY OF NICOTINE DEPENDENCE 01/24/2016 WALDEMAR BERGERON MD Ot Z95.1 PRESENCE OF AORTOCORONARY BYPASS GRAFT 01/24/2016 WALDEMAR BERGERON MD Ot E11.9 TYPE 2 DIABETES MELLITUS WITHOUT COMPLIC 01/24/2016 WALDEMAR BERGERON MD Ot I10 ESSENTIAL (PRIMARY) HYPERTENSION 01/24/2016 WALDEMAR BERGERON MD Ot I25.10 ATHSCL HEART DISEASE OF [place] CORONARY 01/24/2016 WALDEMAR BERGERON MD Ot I25.5 ISCHEMIC CARDIOMYOPATHY 01/24/2016 WALDEMAR BERGERON MD Ot I47.2 VENTRICULAR TACHYCARDIA 01/24/2016 WALDEMAR BERGERON MD Ot I48.91 UNSPECIFIED ATRIAL FIBRILLATION 01/24/2016 WALDEMAR BERGERON MD Ot I50.23 ACUTE ON CHRONIC SYSTOLIC (CONGESTIVE) H 01/24/2016 WALDEMAR BERGERON MD Ot Z87.891 PERSONAL HISTORY OF NICOTINE DEPENDENCE 01/24/2016 WALDEMAR BERGERON MD Ot Z95.1 PRESENCE OF AORTOCORONARY BYPASS GRAFT 01/24/2016 WALDEMAR BERGERON MD Ot E11.9 TYPE 2 DIABETES MELLITUS WITHOUT COMPLIC 01/24/2016 WALDEMAR BERGERON MD Ot I10 ESSENTIAL (PRIMARY) HYPERTENSION 01/24/2016 WALDEMAR BERGERON MD Ot I25.10 ATHSCL HEART DISEASE OF [place] CORONARY 01/24/2016 WALDEMAR BERGERON MD Ot I25.5 ISCHEMIC CARDIOMYOPATHY 01/24/2016 WALDEMAR BERGERON MD Ot I47.2 VENTRICULAR TACHYCARDIA 01/24/2016 WALDEMAR BERGERON MD Ot I48.91 UNSPECIFIED ATRIAL FIBRILLATION 01/24/2016 WALDEMAR BERGERON MD Ot I50.23 ACUTE ON CHRONIC SYSTOLIC (CONGESTIVE) H 01/24/2016 WALDEMAR BERGERON MD Ot Z87.891 PERSONAL HISTORY OF NICOTINE DEPENDENCE 01/24/2016 WALDEMAR BERGERON MD Ot Z95.1 PRESENCE OF AORTOCORONARY BYPASS GRAFT 01/25/2016 WALDEMAR BERGERON MD Ot E11.9 TYPE 2 DIABETES MELLITUS WITHOUT COMPLIC 01/25/2016 WALDEMAR BERGERON MD Ot I10 ESSENTIAL (PRIMARY) HYPERTENSION 01/25/2016 WALDEMAR BERGERON MD Ot I25.10 ATHSCL HEART DISEASE OF [place] CORONARY 01/25/2016 WALDEMAR BERGERON MD Ot I25.5 ISCHEMIC CARDIOMYOPATHY 01/25/2016 WALDEMAR BERGERON MD Ot I47.2 VENTRICULAR TACHYCARDIA 01/25/2016 WALDEMAR BERGERON MD Ot I48.91 UNSPECIFIED ATRIAL FIBRILLATION 01/25/2016 WALDEMAR BERGERON MD Ot I50.23 ACUTE ON CHRONIC SYSTOLIC (CONGESTIVE) H 01/25/2016 WALDEMAR BERGERON MD Ot Z87.891 PERSONAL HISTORY OF NICOTINE DEPENDENCE 01/25/2016 WALDEMAR BERGERON MD Ot Z95.1 PRESENCE OF AORTOCORONARY BYPASS GRAFT 01/26/2016 WALDEMAR BERGERON MD Ot E11.9 TYPE 2 DIABETES MELLITUS WITHOUT COMPLIC 01/26/2016 WALDEMAR BERGERON MD Ot I10 ESSENTIAL (PRIMARY) HYPERTENSION 01/26/2016 WALDEMAR BERGERON MD Ot I25.10 ATHSCL HEART DISEASE OF [place] CORONARY 01/26/2016 WALDEMAR BERGERON MD Ot I25.5 ISCHEMIC CARDIOMYOPATHY 01/26/2016 WALDEMAR BERGERON MD Ot I47.2 VENTRICULAR TACHYCARDIA 01/26/2016 WALDEMAR BERGERON MD Ot I48.91 UNSPECIFIED ATRIAL FIBRILLATION 01/26/2016 WALDEMAR BERGERON MD Ot I50.23 ACUTE ON CHRONIC SYSTOLIC (CONGESTIVE) H 01/26/2016 WALDEMAR BERGERON MD Ot Z87.891 PERSONAL HISTORY OF NICOTINE DEPENDENCE 01/26/2016 WALDEMAR BERGERON MD Ot Z95.1 PRESENCE OF AORTOCORONARY BYPASS GRAFT 01/26/2016 RUBIO MD, WALDEMAR A Ot E11.9 TYPE 2 DIABETES MELLITUS WITHOUT COMPLIC 01/26/2016 WALDEMAR BERGERON MD Ot I10 ESSENTIAL (PRIMARY) HYPERTENSION 01/26/2016 WALDEMAR BERGERON MD Ot I25.10 ATHSCL HEART DISEASE OF [place] CORONARY 01/26/2016 WALDEMAR BERGERON MD Ot I25.5 ISCHEMIC CARDIOMYOPATHY 01/26/2016 WALDEMAR BERGERON MD Ot I47.2 VENTRICULAR TACHYCARDIA 01/26/2016 WALDEMAR BERGERON MD Ot I48.91 UNSPECIFIED ATRIAL FIBRILLATION 01/26/2016 WALDEMAR BERGERON MD Ot I50.23 ACUTE ON CHRONIC SYSTOLIC (CONGESTIVE) H 01/26/2016 WALDEMAR BERGERON MD Ot I73.9 PERIPHERAL VASCULAR DISEASE, UNSPECIFIED 01/26/2016 WALDEMAR BERGERON MD Ot 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, LEFT ANKLE AND FOOT 01/26/2016 WALDEMAR BERGERON MD Ot Z87.891 PERSONAL HISTORY OF NICOTINE DEPENDENCE 01/26/2016 WALDEMAR BERGERON MD Ot Z95.1 PRESENCE OF AORTOCORONARY BYPASS GRAFT 02/08/2016 JESICA PATRICK MD, FACCP CCDS Ot E11.9 TYPE 2 DIABETES MELLITUS WITHOUT COMPLIC 02/08/2016 JESICA PATRICK MD, FACC FACP CCDS Ot I10 ESSENTIAL (PRIMARY) HYPERTENSION 02/08/2016 JESICA PATRICK MD, FACC FACP CCDS Ot I25.10 ATHSCL HEART DISEASE OF [place] CORONARY 02/08/2016 JESICA PATRICK MD, FACC FACP CCDS Ot I42.0 DILATED CARDIOMYOPATHY 02/08/2016 JESICA PATRICK MD, FACC FACP CCDS Ot I48.0 PAROXYSMAL ATRIAL FIBRILLATION 02/08/2016 JESICA PATRICK MD, FACC FACP CCDS Ot I50.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 02/08/2016 JESICA PATRICK MD, FACC FACP CCDS Ot Z79.01 PENITENTIARY (CURRENT) USE OF ANTICOAGULANT 02/08/2016 JESICA PATRICK MD, FACC FACP CCDS Ot Z79.899 OTHER PENITENTIARY (CURRENT) DRUG THERAPY 02/08/2016 JESICA PATRICK MD, FACC FACP CCDS Ot Z95.1 PRESENCE OF AORTOCORONARY BYPASS GRAFT 03/07/2016 JESICA PATRICK MD, FACC FACP CCDS Ot E11.9 TYPE 2 DIABETES MELLITUS WITHOUT COMPLIC 03/07/2016 DARNELL ROSARIO FACC, JESICA FACP CCDS Ot I10 ESSENTIAL (PRIMARY) HYPERTENSION 03/07/2016 JESICA PATRICK MD, FACC FACP CCDS Ot I25.10 ATHSCL HEART DISEASE OF [place] CORONARY 03/07/2016 JESICA PATRICK MD, FACC FACP CCDS Ot I42.0 DILATED CARDIOMYOPATHY 03/07/2016 JESICA PATRICK MD, FACC FACP CCDS Ot I48.0 PAROXYSMAL ATRIAL FIBRILLATION 03/07/2016 JESICA PATRICK MD, FACC FACP CCDS Ot I50.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 03/07/2016 JESICA PATRICK MD, FACCP CCDS Ot Z79.01 PENITENTIARY (CURRENT) USE OF ANTICOAGULANT 03/07/2016 JESICA PATRICK MD, FACCP CCDS Ot Z79.899 OTHER [facility]ILD [facility] WORKER (CURRENT) DRUG THERAPY 03/07/2016 JESICA PATRICK MD, FACCP CCDS Ot Z95.1 PRESENCE OF AORTOCORONARY BYPASS GRAFT 04/16/2016 JESICA PATRICK MD, FACC FACP CCDS Ot E11.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 04/16/2016 JESICA PATRICK MD, FACC FACP CCDS Ot I25.10 ATHSCL HEART DISEASE OF [place] CORONARY 04/16/2016 JESICA PATRICK MD, FACC FACP CCDS Ot I42.0 DILATED CARDIOMYOPATHY 04/16/2016 JESICA PATRICK MD, FACCP CCDS Ot I50.23 ACUTE ON CHRONIC SYSTOLIC (CONGESTIVE) H 04/17/2016 JESICA PATRICK MD, FACC FACP CCDS Ot I50.9 HEART FAILURE, UNSPECIFIED 04/24/2016 JESICA PATRICK MD, FACC FACP CCDS Ot 250.22 DIAB W HYPEROSMOLARITY, TYPE II OR UNSPE 04/24/2016 JESICA PATRICK MD, FACC FACP CCDS Ot 414.8 CHR ISCHEMIC HRT DIS NEC 04/24/2016 JESICA PATRICK MD, FACC FACP CCDS Ot 427.32 ATRIAL FLUTTER 04/24/2016 JESICA PATRICK MD, FACC FACP CCDS Ot 428.42 CHRONIC SYSTOLIC/DIASTOLIC HRT FAILURE 04/24/2016 JESICA PATRICK MD, FACC FACP CCDS Ot 250.00 DIAB KARLI WO COMPL, TYPE II OR UNSPEC TY 04/24/2016 JESICA PATRICK MD, FACC FACP CCDS Ot 414.9 CHR ISCHEMIC HRT DIS NOS 04/24/2016 DARNELL ROSARIO FACC, JESICA FACP CCDS Ot 425.4 PRIM CARDIOMYOPATHY NEC 04/24/2016 DARNELL ROSARIO FACC, JESICA FACP CCDS Ot 427.32 ATRIAL FLUTTER 04/24/2016 DARNELL ROSARIO FACC, JESICA FACP CCDS Ot 428.42 CHRONIC SYSTOLIC/DIASTOLIC HRT FAILURE 04/24/2016 DARNELL ROSARIO FACC, JESICA FACP CCDS Ot E11.9 TYPE 2 DIABETES MELLITUS WITHOUT COMPLIC 04/24/2016 DARNELL ROSARIO FACC, JESICA FACP CCDS Ot I25.10 ATHSCL HEART DISEASE OF [place] CORONARY 04/24/2016 DARNELL ROSARIO FACC, JESICA FACP CCDS Ot I42.0 DILATED CARDIOMYOPATHY 04/24/2016 DARNELL ROSARIO FACC, JESICA FACP CCDS Ot I48.3 TYPICAL ATRIAL FLUTTER 04/24/2016 DARNELL ROSARIO FACC, JESICA FACP CCDS Ot I50.9 HEART FAILURE, UNSPECIFIED 04/24/2016 DARNELL ROSARIO FACC, JESICA FACP CCDS Ot E11.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 04/24/2016 DARNELL ROSARIO FACC, JESICA FACP CCDS Ot I25.10 ATHSCL HEART DISEASE OF [place] CORONARY 04/24/2016 DARNELL ROSARIO FACC, JESICA FACP CCDS Ot I42.0 DILATED CARDIOMYOPATHY 04/24/2016 DARNELL ROSARIO FACC, JESICA FACP CCDS Ot I50.23 ACUTE ON CHRONIC SYSTOLIC (CONGESTIVE) H 05/04/2016 DARNELL ROSARIO FACC, JESICA FACP CCDS Ot E11.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 05/04/2016 DARNELL ROSARIO FACC, JESICA FACP CCDS Ot I25.10 ATHSCL HEART DISEASE OF [place] CORONARY 05/04/2016 DARNELL ROSARIO FACC, JESICA FACP CCDS Ot I42.0 DILATED CARDIOMYOPATHY 05/04/2016 DARNELL ROSARIO FACC, JESICA FACP CCDS Ot I50.23 ACUTE ON CHRONIC SYSTOLIC (CONGESTIVE) H 05/11/2016 DARNELL ROSARIO FACC, ALI FACP CCDS Ot E11.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 05/11/2016 DARNELL MD FACC, ALI FACP CCDS Ot I25.10 ATHSCL HEART DISEASE OF [place] CORONARY 05/11/2016 DARNELL ROSARIO FACC, ALI FACP CCDS Ot I42.0 DILATED CARDIOMYOPATHY 05/11/2016 DARNELL ROSARIO FACC, ALI FACP CCDS Ot I50.23 ACUTE ON CHRONIC SYSTOLIC (CONGESTIVE) H 05/24/2016 DARNELL WONGC, ALI FACP CCDS Ot I50.9 HEART FAILURE, UNSPECIFIED 05/30/2016 DARNELL ROSARIO FACC, ALI FACP CCDS Ot I50.9 HEART FAILURE, UNSPECIFIED 07/12/2016 DARNELL WONGC, ALI FACP CCDS Ot I50.9 HEART FAILURE, UNSPECIFIED 07/13/2016 DANRELL ROSARIO FACC, ALI FACP CCDS Ot I50.9 HEART FAILURE, UNSPECIFIED 07/16/2016 DARNELL ROSARIO FACC, ALI FACP CCDS Ot I50.9 HEART FAILURE, UNSPECIFIED 07/17/2016 DARNELL ROSARIO FACC, ALI FACP CCDS Ot I50.9 HEART FAILURE, UNSPECIFIED 08/07/2016 DARNELL WONGC, ALI FACP CCDS Ot I48.2 CHRONIC ATRIAL FIBRILLATION 08/07/2016 DARNELL ROSARIO FACC, ALI FACP CCDS Ot I50.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 08/08/2016 DARNELL WONGC, ALI FACP CCDS Ot I50.9 HEART FAILURE, UNSPECIFIED 08/08/2016 DARNELL ROSARIO FACC, ALI FACP CCDS Ot I50.9 HEART FAILURE, UNSPECIFIED 08/30/2016 DARNELL ROSARIO FACC, ALI FACP CCDS Ot I50.9 HEART FAILURE, UNSPECIFIED 08/30/2016 DARNELL WONGC, ALI FACP CCDS Ot I48.2 CHRONIC ATRIAL FIBRILLATION 08/30/2016 DARNELL ROSARIO FACC, ALI FACP CCDS Ot I50.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 08/30/2016 DARNELL WONGC, ALI FACP CCDS Ot I50.9 HEART FAILURE, UNSPECIFIED 08/30/2016 DARNELL ROSARIO FACC, ALI FACP CCDS Ot I48.2 CHRONIC ATRIAL FIBRILLATION 08/30/2016 DARNELL ROSARIO FACC, ALI FACP CCDS Ot I50.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 10/04/2016 KYLE FARIAS DO Ot I50.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 10/04/2016 FARIAS DO, KYLE K Ot J90 PLEURAL EFFUSION, NOT ELSEWHERE CLASSIFI 10/04/2016 FARIAS DO, KYLE K Ot J98.11 ATELECTASIS 10/04/2016 FARIAS DO, KYLE K Ot Z95.0 PRESENCE OF CARDIAC PACEMAKER 10/09/2016 FARIAS DO, KYLE K Ot I50.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 10/09/2016 FARIAS DO, KYLE K Ot J90 PLEURAL EFFUSION, NOT ELSEWHERE CLASSIFI 10/09/2016 FARIAS DO, KYLE K Ot J98.11 ATELECTASIS 10/09/2016 FARIAS DO, KYLE K Ot Z95.0 PRESENCE OF CARDIAC PACEMAKER 10/11/2016 DARNELL [facility], JESICA ASTORGA CCDS Ot I50.9 HEART FAILURE, UNSPECIFIED 10/12/2016 DARNELL ROSARIO FACC, JESICA ASTORGA CCDS Ot I50.9 HEART FAILURE, UNSPECIFIED 10/25/2016 EDUAR PAULA MD Ot A41.89 OTHER SPECIFIED SEPSIS 10/25/2016 EDUAR PAULA MD Ot B97.89 OTH VIRAL AGENTS THE CAUSE OF DISEASE 10/25/2016 EDUAR PAULA MD Ot D68.4 ACQUIRED COAGULATION FACTOR DEFICIENCY 10/25/2016 EDUAR PAULA MD, Ot D69.6 THROMBOCYTOPENIA, UNSPECIFIED 10/25/2016 EDUAR PAULA MD Ot E11.9 TYPE 2 DIABETES MELLITUS WITHOUT COMPLIC 10/25/2016 EDUAR PAULA MD Ot I10 ESSENTIAL (PRIMARY) HYPERTENSION 10/25/2016 EDUAR PAULA MD Ot I25.10 ATHSCL HEART DISEASE OF [place] CORONARY 10/25/2016 EDUAR PAULA MD Ot I25.5 ISCHEMIC CARDIOMYOPATHY 10/25/2016 EDUAR PAULA MD Ot I48.91 UNSPECIFIED ATRIAL FIBRILLATION 10/25/2016 EDUAR PAULA MD, Ot I50.23 ACUTE ON CHRONIC SYSTOLIC (CONGESTIVE) H 10/25/2016 EDUAR PAULA MD Ot J10.00 FLU DUE TO OTH IDENT FLU VIRUS W UNSP TY 10/25/2016 EDUAR PAULA MD Ot K59.00 CONSTIPATION, UNSPECIFIED 10/25/2016 EDUAR PAULA MD Ot K72.00 ACUTE AND SUBACUTE HEPATIC FAILURE WITHO 10/25/2016 EDUAR PAULA MD Ot K74.60 UNSPECIFIED CIRRHOSIS OF LIVER 10/25/2016 EDUAR PAULA MD, Ot M10.9 GOUT, UNSPECIFIED 10/25/2016 EDUAR PAULA MD Ot N62 HYPERTROPHY OF BREAST 10/25/2016 EDUAR PAULA MD Ot R65.20 SEVERE SEPSIS WITHOUT SEPTIC SHOCK 10/25/2016 EDUAR PAULA MD Ot Z79.01 CHILD [facility] WORKER (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22 CHRONIC SYSTOLIC (CONGESTIVE) HEART FAIL 08/28/2017 EDEL CHUN L TAX EXPERT Ot I25.10 ATHSCL HEART DISEASE OF [place] CORONARY 08/28/2017 TAMMI CHUNHER L TAX EXPERT Ot I25.5 ISCHEMIC CARDIOMYOPATHY 08/28/2017 TAMMI CHUNHER L TAX EXPERT Ot I48.2 CHRONIC ATRIAL FIBRILLATION 08/28/2017 ADIEL EDEL L TAX EXPERT Ot I50.22 CHRONIC SYSTOLIC (CONGESTIVE) HEART FAIL 10/03/2017 EDEL CHUN L TAX EXPERT Ot I25.10 ATHSCL HEART DISEASE OF [place] CORONARY 10/03/2017 EDEL CHUN L TAX EXPERT Ot I25.5 ISCHEMIC CARDIOMYOPATHY 10/03/2017 TAMMI CHUNHER L TAX EXPERT Ot I48.2 CHRONIC ATRIAL FIBRILLATION 10/03/2017 TAMMI CHUNHER L TAX EXPERT Ot I50.22 CHRONIC SYSTOLIC (CONGESTIVE) HEART FAIL Procedures Code Description [place] [id number] MICROALBUMIN 09/08/2012 86320 A1C (IN-HOUSE) 09/08/2012 00353 MICRO ALBUMIN-IN HOUSE 09/08/2012 38343 A1C (IN-HOUSE) 01/08/2013 95195 ROUTINE VENIPUNCTURE 04/23/2013 93184 A1C (IN-HOUSE) 04/23/2013 20698 MICRO ALBUMIN-IN HOUSE 04/23/2013 32673 CBC 04/23/2013 33609 LIPID PANEL 04/23/2013 78805 CMP 04/23/2013 [id number] GFR CALC (RESULT ONLY) 04/23/2013 17219 MICROALBUMIN 04/23/2013 10143 MICRO ALBUMIN-IN HOUSE 03/02/2014 02337 A1C (IN-HOUSE) 03/02/2014 10973 MICROALBUMIN 03/03/2014 64722 ROUTINE VENIPUNCTURE 03/11/2014 08105 CBC 03/11/2014 [id number] GFR CALC (RESULT ONLY) 03/11/2014 85920 CMP 03/11/2014 02519 LIPID PANEL 03/11/2014 33307 TSH 03/11/2014 99.61 04/19/2015 Results Test Result Range Bacterial blood culture - 10/21/16 19:38 QUANTITY OF GROWTH Isolated [facility] Bacterial blood culture [id number] [facility] Influenza virus A and B antigen detection - 10/21/16 19:45 CALL POSITIVES (F1 HELP) CALLED TO JAMES IN ED AT 2023 [facility] FLU RESULT POSITIVE FOR INFLUENZA A ANTIGEN, NEG FOR B ANTIGEN, BY [facility] Complete blood count (CBC) with automated white blood cell (WBC) differential - 10/21/16 19:50 Blood leukocytes automated count (number/volume) 11.7 10*3/uL 4.3-11.0 Blood erythrocytes automated count (number/volume) 6.33 10*6/uL 4.35-5.85 Venous blood hemoglobin measurement (mass/volume) 17.9 g/dL 13.3-17.7 Blood hematocrit (volume fraction) 52 % 40-54 Automated erythrocyte mean corpuscular volume 83 [foz_us] 80-99 Automated erythrocyte mean corpuscular hemoglobin (mass per erythrocyte) 28 pg 25-34 Automated erythrocyte mean corpuscular hemoglobin concentration measurement ( mass/volume) 34 g/dL 32-36 Automated erythrocyte distribution width ratio 22.3 % 10.0-14.5 Automated blood platelet count (count/volume) 103 10*3/uL 130-400 Automated blood platelet mean volume measurement 11.5 [foz_us] 7.4-10.4 Automated blood neutrophils/100 leukocytes 75 % 42-75 Automated blood lymphocytes/100 leukocytes 10 % 12-44 Blood monocytes/100 leukocytes 15 % 0-12 Automated blood eosinophils/100 leukocytes 0 % 0-10 Automated blood basophils/100 leukocytes 0 % 0-10 Blood neutrophils automated count (number/volume) 8.8 10*3 1.8-7.8 Blood lymphocytes automated count (number/volume) 1.2 10*3 1.0-4.0 Blood monocytes automated count (number/volume) 1.7 10*3 0.0-1.0 Automated eosinophil count 0.0 10*3/uL 0.0-0.3 Automated blood basophil count (count/volume) 0.0 10*3/uL 0.0-0.1 PT panel in platelet poor plasma by coagulation assay - 10/21/16 19:50 Prothrombin time (PT) in platelet poor plasma by coagulation assay 28.1 s 12.2-14.7 INR in platelet poor plasma or blood by coagulation assay 2.7 0.8-1.4 Activated partial thromboplastin time (aPTT) in platelet poor plasma bycoagulation assay - 10/21/16 19:50 Activated partial thromboplastin time (aPTT) in platelet poor plasma bycoagulation assay 44 s 24-35 Serum or plasma troponin i.cardiac measurement (mass/volume) - 10/21/16 19:50 Serum or plasma troponin i.cardiac measurement (mass/volume) < ng/ mL <0.30 Comprehensive metabolic panel - 10/21/16 19:50 Serum or plasma sodium measurement (moles/volume) 132 mmol/L 135-145 Serum or plasma potassium measurement (moles/volume) 4.5 mmol/L 3.6-5.0 Serum or plasma chloride measurement (moles/volume) 94 mmol/L 98-107 Carbon dioxide 23 mmol/L 21-32 Serum or plasma anion gap determination (moles/volume) 15 mmol/L 5-14 Serum or plasma urea nitrogen measurement (mass/volume) 32 mg/dL 7-18 Serum or plasma creatinine measurement (mass/volume) 1.13 mg/dL 0.60-1.30 Serum or plasma urea nitrogen/creatinine mass ratio 28 NRG Serum or plasma creatinine measurement with calculation of estimated glomerular filtration rate > NRG Serum or plasma glucose measurement (mass/volume) 155 mg/dL 70-105 Serum or plasma calcium measurement (mass/volume) 8.6 mg/dL 8.5-10.1 Serum or plasma total bilirubin measurement (mass/volume) 2.8 mg/dL 0.1-1.0 Serum or plasma alkaline phosphatase measurement (enzymatic activity/volume) 138 U/L 40-136 Serum or plasma aspartate aminotransferase measurement (enzymatic activity/ volume) 627 U/L 5-34 Serum or plasma alanine aminotransferase measurement (enzymatic activity/volume ) 932 U/L 0-55 Serum or plasma protein measurement (mass/volume) 7.3 g/dL 6.4-8.2 Serum or plasma albumin measurement (mass/volume) 3.7 g/dL 3.2-4.5 Blood lactic acid measurement (moles/volume) - 10/21/16 19:50 Blood lactic acid measurement (moles/volume) 3.4 mmol/L 0.5-2.0 Serum or plasma lithium measurement (moles/volume) - 10/21/16 19:50 BNP level 3535.4 pg/mL <100.0 Lipase - 10/21/16 19:50 Lipase 24 U/L 8-78 Serum or plasma C reactive protein measurement (mass/volume) - 10/21/16 19:50 Serum or plasma C reactive protein measurement (mass/volume) 7.41 mg /dL 0.00-0.50 Digoxin - 10/21/16 19:50 Digoxin < ng/mL 0.80-2.00 Lactate dehydrogenase 1 [enzymatic activity/volume] in serum or plasma - 19:50 Lactate dehydrogenase 1 [enzymatic activity/volume] in serum or plasma 428 U/L 125-220 Bacterial blood culture - 10/21/16 19:50 Bacterial blood culture NG NRG Serum or plasma lactate measurement (moles/volume) - 10/21/16 21:39 Serum or plasma lactate measurement (moles/volume) 3.1 mmol/L 0.5-2.0 Complete urinalysis with reflex to culture - 10/21/16 22:39 Urine color determination YELLOW NRG Urine clarity determination SLIGHTLY CLOUDY NRG Urine pH measurement by test strip 5 5-9 Specific gravity of urine by test strip 1.020 1.016- 1.022 Urine protein assay by test strip, semi-quantitative 3+ NEGATIVE Urine glucose detection by automated test strip NEGATIVE NEGATIVE Erythrocytes detection in urine sediment by light microscopy 1+ NEGATIVE Urine ketones detection by automated test strip NEGATIVE NEGATIVE Urine nitrite detection by test strip NEGATIVE NEGATIVE Urine total bilirubin detection by test strip NEGATIVE NEGATIVE Urine urobilinogen measurement by automated test strip (mass/volume) 4 mg/dL NORMAL Urine leukocyte esterase detection by dipstick NEGATIVE NEGATIVE Automated urine sediment erythrocyte count by microscopy (number/high power field) NONE NRG Automated urine sediment leukocyte count by microscopy (number/high power field ) [HPF] NRG Bacteria detection in urine sediment by light microscopy MODERATE NRG Squamous epithelial cells detection in urine sediment by light microscopy 0-2 NRG Crystals detection in urine sediment by light microscopy NONE NRG Casts detection in urine sediment by light microscopy PRESENT NRG Mucus detection in urine sediment by light microscopy NEGATIVE NRG Complete urinalysis with reflex to culture YES NRG Hyaline casts detection in urine sediment by light microscopy RARE NRG Granular casts detection in urine sediment by light microscopy 0-2 NRG WBC casts detection in urine sediment by light microscopy 0-2 NRG Bacterial urine culture - 10/21/16 22:39 Bacterial urine culture NG NRG Methicillin resistant Staphylococcus aureus (MRSA) screening culture - 23:00 Methicillin resistant Staphylococcus aureus (MRSA) screening culture NEG NRG Automated blood complete blood count (hemogram) panel - 10/22/16 00:20 Blood leukocytes automated count (number/volume) 10.0 10*3/uL 4.3-11.0 Blood erythrocytes automated count (number/volume) 5.71 10*6/uL 4.35-5.85 Venous blood hemoglobin measurement (mass/volume) 16.2 g/dL 13.3-17.7 Blood hematocrit (volume fraction) 47 % 40-54 Automated erythrocyte mean corpuscular volume 83 [foz_us] 80-99 Automated erythrocyte mean corpuscular hemoglobin (mass per erythrocyte) 28 pg 25-34 Automated erythrocyte mean corpuscular hemoglobin concentration measurement ( mass/volume) 34 g/dL 32-36 Automated erythrocyte distribution width ratio 21.8 % 10.0-14.5 Automated blood platelet count (count/volume) 87 10*3/uL 130-400 Automated blood platelet mean volume measurement TNP 7.4 -10.4 PT panel in platelet poor plasma by coagulation assay - 10/22/16 00:20 Prothrombin time (PT) in platelet poor plasma by coagulation assay 28.9 s 12.2-14.7 INR in platelet poor plasma or blood by coagulation assay 2.7 0.8-1.4 Activated partial thromboplastin time (aPTT) in platelet poor plasma bycoagulation assay - 10/22/16 00:20 Activated partial thromboplastin time (aPTT) in platelet poor plasma bycoagulation assay 44 s 24-35 Comprehensive metabolic panel - 10/22/16 00:20 Serum or plasma sodium measurement (moles/volume) 132 mmol/L 135-145 Serum or plasma potassium measurement (moles/volume) 3.8 mmol/L 3.6-5.0 Serum or plasma chloride measurement (moles/volume) 94 mmol/L 98-107 Carbon dioxide 25 mmol/L 21-32 Serum or plasma anion gap determination (moles/volume) 13 mmol/L 5-14 Serum or plasma urea nitrogen measurement (mass/volume) 33 mg/dL 7-18 Serum or plasma creatinine measurement (mass/volume) 1.05 mg/dL 0.60-1.30 Serum or plasma urea nitrogen/creatinine mass ratio 31 NRG Serum or plasma creatinine measurement with calculation of estimated glomerular filtration rate > NRG Serum or plasma glucose measurement (mass/volume) 135 mg/dL 70-105 Serum or plasma calcium measurement (mass/volume) 7.8 mg/dL 8.5-10.1 Serum or plasma total bilirubin measurement (mass/volume) 2.4 mg/dL 0.1-1.0 Serum or plasma alkaline phosphatase measurement (enzymatic activity/volume) 106 U/L 40-136 Serum or plasma aspartate aminotransferase measurement (enzymatic activity/ volume) 445 U/L 5-34 Serum or plasma alanine aminotransferase measurement (enzymatic activity/volume ) 715 U/L 0-55 Serum or plasma protein measurement (mass/volume) 5.9 g/dL 6.4-8.2 Serum or plasma albumin measurement (mass/volume) 3.0 g/dL 3.2-4.5 Blood lactic acid measurement (moles/volume) - 10/22/16 00:20 Blood lactic acid measurement (moles/volume) 2.6 mmol/L 0.5-2.0 Acute hepatitis panel - 10/22/16 00:20 Confirmatory quantitative serum or plasma hepatitis B virus surface antigen measurement Non-Reactive Non-Reactive Hepatitis A virus IgM antibody assay Non-Reactive Non- Reactive Hepatitis B virus core IgM antibody assay Non-Reactive Non-Reactive Serum hepatitis C virus antibody detection Non-Reactive Non-Reactive Serum or plasma lactate measurement (moles/volume) - 10/22/16 02:10 Serum or plasma lactate measurement (moles/volume) 2.2 mmol/L 0.5-2.0 Complete blood count (CBC) with automated white blood cell (WBC) differential - 10/22/16 03:37 Blood leukocytes automated count (number/volume) 10.0 10*3/uL 4.3-11.0 Blood erythrocytes automated count (number/volume) 5.64 10*6/uL 4.35-5.85 Venous blood hemoglobin measurement (mass/volume) 15.9 g/dL 13.3-17.7 Blood hematocrit (volume fraction) 47 % 40-54 Automated erythrocyte mean corpuscular volume 83 [foz_us] 80-99 Automated erythrocyte mean corpuscular hemoglobin (mass per erythrocyte) 28 pg 25-34 Automated erythrocyte mean corpuscular hemoglobin concentration measurement ( mass/volume) 34 g/dL 32-36 Automated erythrocyte distribution width ratio 21.6 % 10.0-14.5 Automated blood platelet count (count/volume) 91 10*3/uL 130-400 Automated blood platelet mean volume measurement 11.5 [foz_us] 7.4-10.4 Automated blood neutrophils/100 leukocytes 76 % 42-75 Automated blood lymphocytes/100 leukocytes 13 % 12-44 Blood monocytes/100 leukocytes 11 % 0-12 Automated blood eosinophils/100 leukocytes 0 % 0-10 Automated blood basophils/100 leukocytes 0 % 0-10 Blood neutrophils automated count (number/volume) 7.6 10*3 1.8-7.8 Blood lymphocytes automated count (number/volume) 1.3 10*3 1.0-4.0 Blood monocytes automated count (number/volume) 1.1 10*3 0.0-1.0 Automated eosinophil count 0.0 10*3/uL 0.0-0.3 Automated blood basophil count (count/volume) 0.0 10*3/uL 0.0-0.1 PT panel in platelet poor plasma by coagulation assay - 10/22/16 03:37 Prothrombin time (PT) in platelet poor plasma by coagulation assay 29.0 s 12.2-14.7 INR in platelet poor plasma or blood by coagulation assay 2.8 0.8-1.4 Comprehensive metabolic panel - 10/22/16 03:37 Serum or plasma sodium measurement (moles/volume) 135 mmol/L 135-145 Serum or plasma potassium measurement (moles/volume) 3.6 mmol/L 3.6-5.0 Serum or plasma chloride measurement (moles/volume) 96 mmol/L 98-107 Carbon dioxide 25 mmol/L 21-32 Serum or plasma anion gap determination (moles/volume) 14 mmol/L 5-14 Serum or plasma urea nitrogen measurement (mass/volume) 30 mg/dL 7-18 Serum or plasma creatinine measurement (mass/volume) 0.93 mg/dL 0.60-1.30 Serum or plasma urea nitrogen/creatinine mass ratio 32 NRG Serum or plasma creatinine measurement with calculation of estimated glomerular filtration rate > NRG Serum or plasma glucose measurement (mass/volume) 99 mg/dL 70-105 Serum or plasma calcium measurement (mass/volume) 7.7 mg/dL 8.5-10.1 Serum or plasma total bilirubin measurement (mass/volume) 2.4 mg/dL 0.1-1.0 Serum or plasma alkaline phosphatase measurement (enzymatic activity/volume) 100 U/L 40-136 Serum or plasma aspartate aminotransferase measurement (enzymatic activity/ volume) 387 U/L 5-34 Serum or plasma alanine aminotransferase measurement (enzymatic activity/volume ) 650 U/L 0-55 Serum or plasma protein measurement (mass/volume) 5.7 g/dL 6.4-8.2 Serum or plasma albumin measurement (mass/volume) 2.9 g/dL 3.2-4.5 Serum or plasma phosphate measurement (mass/volume) - 10/22/16 03:37 Serum or plasma phosphate measurement (mass/volume) 2.9 mg/dL 2.3-4.7 Magnesium - 10/22/16 03:37 Magnesium 1.7 mg/dL 1.8-2.4 Ammonia - 10/22/16 09:15 Ammonia 44 umol/L 11-32 Capillary blood glucose measurement by glucometer (mass/volume) - 10/22/16 21: 38 Capillary blood glucose measurement by glucometer (mass/volume) 117 mg/dL 70-110 Complete blood count (CBC) with automated white blood cell (WBC) differential - 10/23/16 03:40 Blood leukocytes automated count (number/volume) 8.0 10*3/uL 4.3-11.0 Blood erythrocytes automated count (number/volume) 5.67 10*6/uL 4.35-5.85 Venous blood hemoglobin measurement (mass/volume) 16.0 g/dL 13.3-17.7 Blood hematocrit (volume fraction) 48 % 40-54 Automated erythrocyte mean corpuscular volume 84 [foz_us] 80-99 Automated erythrocyte mean corpuscular hemoglobin (mass per erythrocyte) 28 pg 25-34 Automated erythrocyte mean corpuscular hemoglobin concentration measurement ( mass/volume) 34 g/dL 32-36 Automated erythrocyte distribution width ratio 21.9 % 10.0-14.5 Automated blood platelet count (count/volume) 83 10*3/uL 130-400 Automated blood platelet mean volume measurement TNP 7.4 -10.4 Automated blood neutrophils/100 leukocytes 69 % 42-75 Automated blood lymphocytes/100 leukocytes 19 % 12-44 Blood monocytes/100 leukocytes 12 % 0-12 Automated blood eosinophils/100 leukocytes 0 % 0-10 Automated blood basophils/100 leukocytes 0 % 0-10 Blood neutrophils automated count (number/volume) 5.5 10*3 1.8-7.8 Blood lymphocytes automated count (number/volume) 1.5 10*3 1.0-4.0 Blood monocytes automated count (number/volume) 1.0 10*3 0.0-1.0 Automated eosinophil count 0.0 10*3/uL 0.0-0.3 Automated blood basophil count (count/volume) 0.0 10*3/uL 0.0-0.1 PT panel in platelet poor plasma by coagulation assay - 10/23/16 03:40 Prothrombin time (PT) in platelet poor plasma by coagulation assay 19.3 s 12.2-14.7 INR in platelet poor plasma or blood by coagulation assay 1.7 0.8-1.4 Comprehensive metabolic panel - 10/23/16 03:40 Serum or plasma sodium measurement (moles/volume) 138 mmol/L 135-145 Serum or plasma potassium measurement (moles/volume) 3.5 mmol/L 3.6-5.0 Serum or plasma chloride measurement (moles/volume) 101 mmol/L 98-107 Carbon dioxide 27 mmol/L 21-32 Serum or plasma anion gap determination (moles/volume) 10 mmol/L 5-14 Serum or plasma urea nitrogen measurement (mass/volume) 16 mg/dL 7-18 Serum or plasma creatinine measurement (mass/volume) 0.73 mg/dL 0.60-1.30 Serum or plasma urea nitrogen/creatinine mass ratio 22 NRG Serum or plasma creatinine measurement with calculation of estimated glomerular filtration rate > NRG Serum or plasma glucose measurement (mass/volume) 81 mg/dL 70-105 Serum or plasma calcium measurement (mass/volume) 8.0 mg/dL 8.5-10.1 Serum or plasma total bilirubin measurement (mass/volume) 2.4 mg/dL 0.1-1.0 Serum or plasma alkaline phosphatase measurement (enzymatic activity/volume) 86 U/L 40-136 Serum or plasma aspartate aminotransferase measurement (enzymatic activity/ volume) 204 U/L 5-34 Serum or plasma alanine aminotransferase measurement (enzymatic activity/volume ) 463 U/L 0-55 Serum or plasma protein measurement (mass/volume) 5.5 g/dL 6.4-8.2 Serum or plasma albumin measurement (mass/volume) 2.6 g/dL 3.2-4.5 Serum or plasma phosphate measurement (mass/volume) - 10/23/16 03:40 Serum or plasma phosphate measurement (mass/volume) 2.1 mg/dL 2.3-4.7 Magnesium - 10/23/16 03:40 Magnesium 1.7 mg/dL 1.8-2.4 Blood lactic acid measurement (moles/volume) - 10/23/16 07:10 Blood lactic acid measurement (moles/volume) 1.5 mmol/L 0.5-2.0 Vancomycin trough - 10/23/16 07:10 Vancomycin trough 1.2 ug/mL 10.0-20.0 Capillary blood glucose measurement by glucometer (mass/volume) - 10/23/16 11: 15 Capillary blood glucose measurement by glucometer (mass/volume) 166 mg/dL 70-110 Capillary blood glucose measurement by glucometer (mass/volume) - 10/23/16 14: 22 Capillary blood glucose measurement by glucometer (mass/volume) 161 mg/dL 70-110 Capillary blood glucose measurement by glucometer (mass/volume) - 10/23/16 21: 39 Capillary blood glucose measurement by glucometer (mass/volume) 114 mg/dL 70-110 Comprehensive metabolic panel - 10/24/16 05:30 Serum or plasma sodium measurement (moles/volume) 139 mmol/L 135-145 Serum or plasma potassium measurement (moles/volume) 3.6 mmol/L 3.6-5.0 Serum or plasma chloride measurement (moles/volume) 102 mmol/L 98-107 Carbon dioxide 25 mmol/L 21-32 Serum or plasma anion gap determination (moles/volume) 12 mmol/L 5-14 Serum or plasma urea nitrogen measurement (mass/volume) 14 mg/dL 7-18 Serum or plasma creatinine measurement (mass/volume) 0.69 mg/dL 0.60-1.30 Serum or plasma urea nitrogen/creatinine mass ratio 20 NRG Serum or plasma creatinine measurement with calculation of estimated glomerular filtration rate > NRG Serum or plasma glucose measurement (mass/volume) 83 mg/dL 70-105 Serum or plasma calcium measurement (mass/volume) 8.3 mg/dL 8.5-10.1 Serum or plasma total bilirubin measurement (mass/volume) 2.5 mg/dL 0.1-1.0 Serum or plasma alkaline phosphatase measurement (enzymatic activity/volume) 99 U/L 40-136 Serum or plasma aspartate aminotransferase measurement (enzymatic activity/ volume) 122 U/L 5-34 Serum or plasma alanine aminotransferase measurement (enzymatic activity/volume ) 364 U/L 0-55 Serum or plasma protein measurement (mass/volume) 6.1 g/dL 6.4-8.2 Serum or plasma albumin measurement (mass/volume) 3.0 g/dL 3.2-4.5 Serum or plasma phosphate measurement (mass/volume) - 10/24/16 05:30 Serum or plasma phosphate measurement (mass/volume) 2.6 mg/dL 2.3-4.7 Magnesium - 10/24/16 05:30 Magnesium 1.8 mg/dL 1.8-2.4 Complete blood count (CBC) with automated white blood cell (WBC) differential - 10/24/16 05:30 Blood leukocytes automated count (number/volume) 7.4 10*3/uL 4.3-11.0 Blood erythrocytes automated count (number/volume) 5.91 10*6/uL 4.35-5.85 Venous blood hemoglobin measurement (mass/volume) 16.5 g/dL 13.3-17.7 Blood hematocrit (volume fraction) 50 % 40-54 Automated erythrocyte mean corpuscular volume 84 [foz_us] 80-99 Automated erythrocyte mean corpuscular hemoglobin (mass per erythrocyte) 28 pg 25-34 Automated erythrocyte mean corpuscular hemoglobin concentration measurement ( mass/volume) 33 g/dL 32-36 Automated erythrocyte distribution width ratio 22.0 % 10.0-14.5 Automated blood platelet count (count/volume) 87 10*3/uL 130-400 Automated blood platelet mean volume measurement 11.8 [foz_us] 7.4-10.4 Automated blood neutrophils/100 leukocytes 59 % 42-75 Automated blood lymphocytes/100 leukocytes 30 % 12-44 Blood monocytes/100 leukocytes 10 % 0-12 Automated blood eosinophils/100 leukocytes 0 % 0-10 Automated blood basophils/100 leukocytes 1 % 0-10 Blood neutrophils automated count (number/volume) 4.4 10*3 1.8-7.8 Blood lymphocytes automated count (number/volume) 2.2 10*3 1.0-4.0 Blood monocytes automated count (number/volume) 0.8 10*3 0.0-1.0 Automated eosinophil count 0.0 10*3/uL 0.0-0.3 Automated blood basophil count (count/volume) 0.0 10*3/uL 0.0-0.1 Blood manual differential performed detection - 10/24/16 05:30 Blood monocytes/100 leukocytes 12 % NRG Manual blood segmented neutrophils/100 leukocytes 59 % NRG Blood band neutrophils/100 leukocytes 2 % NRG Manual blood lymphocytes/100 leukocytes 11 % NRG Manual eosinophils/100 leukocytes in nose 1 % NRG Manual blood basophils/100 leukocytes 0 % NRG Blood lymphocytes variant/100 leukocytes 15 % NRG Blood anisocytosis detection by light microscopy MODERATE NRG Blood ovalocytes detection by light microscopy SLIGHT NRG Blood poikilocytosis detection by light microscopy SLIGHT NRG Blood hypochromia detection by light microscopy SLIGHT NRG Blood target cells detection by light microscopy SLIGHT NRG Capillary blood glucose measurement by glucometer (mass/volume) - 10/24/16 09: 35 Capillary blood glucose measurement by glucometer (mass/volume) 127 mg/dL 70-110 Capillary blood glucose measurement by glucometer (mass/volume) - 10/24/16 15: 59 Capillary blood glucose measurement by glucometer (mass/volume) 156 mg/dL 70-110 Capillary blood glucose measurement by glucometer (mass/volume) - 10/24/16 21: 16 Capillary blood glucose measurement by glucometer (mass/volume) 115 mg/dL 70-110 Complete blood count (CBC) with automated white blood cell (WBC) differential - 10/25/16 04:53 Blood leukocytes automated count (number/volume) 6.9 10*3/uL 4.3-11.0 Blood erythrocytes automated count (number/volume) 5.83 10*6/uL 4.35-5.85 Venous blood hemoglobin measurement (mass/volume) 16.2 g/dL 13.3-17.7 Blood hematocrit (volume fraction) 49 % 40-54 Automated erythrocyte mean corpuscular volume 84 [foz_us] 80-99 Automated erythrocyte mean corpuscular hemoglobin (mass per erythrocyte) 28 pg 25-34 Automated erythrocyte mean corpuscular hemoglobin concentration measurement ( mass/volume) 33 g/dL 32-36 Automated erythrocyte distribution width ratio 22.1 % 10.0-14.5 Automated blood platelet count (count/volume) 93 10*3/uL 130-400 Automated blood platelet mean volume measurement 10.8 [foz_us] 7.4-10.4 Automated blood neutrophils/100 leukocytes 58 % 42-75 Automated blood lymphocytes/100 leukocytes 29 % 12-44 Blood monocytes/100 leukocytes 13 % 0-12 Automated blood eosinophils/100 leukocytes 0 % 0-10 Automated blood basophils/100 leukocytes 1 % 0-10 Blood neutrophils automated count (number/volume) 4.0 10*3 1.8-7.8 Blood lymphocytes automated count (number/volume) 2.0 10*3 1.0-4.0 Blood monocytes automated count (number/volume) 0.9 10*3 0.0-1.0 Automated eosinophil count 0.0 10*3/uL 0.0-0.3 Automated blood basophil count (count/volume) 0.0 10*3/uL 0.0-0.1 Whole blood basic metabolic panel - 10/25/16 04:53 Serum or plasma sodium measurement (moles/volume) 139 mmol/L 135-145 Serum or plasma potassium measurement (moles/volume) 3.8 mmol/L 3.6-5.0 Serum or plasma chloride measurement (moles/volume) 101 mmol/L 98-107 Carbon dioxide 28 mmol/L 21-32 Serum or plasma anion gap determination (moles/volume) 10 mmol/L 5-14 Serum or plasma urea nitrogen measurement (mass/volume) 10 mg/dL 7-18 Serum or plasma creatinine measurement (mass/volume) 0.73 mg/dL 0.60-1.30 Serum or plasma urea nitrogen/creatinine mass ratio 14 NRG Serum or plasma creatinine measurement with calculation of estimated glomerular filtration rate > NRG Serum or plasma glucose measurement (mass/volume) 94 mg/dL 70-105 Serum or plasma calcium measurement (mass/volume) 8.6 mg/dL 8.5-10.1 Serum or plasma phosphate measurement (mass/volume) - 10/25/16 04:53 Serum or plasma phosphate measurement (mass/volume) 3.0 mg/dL 2.3-4.7 Magnesium - 10/25/16 04:53 Magnesium 1.7 mg/dL 1.8-2.4 Liver function panel (serum or plasma alk phos, alb, total and direct bili, total protein, ALT, AST) - 10/25/16 04:53 Serum or plasma total bilirubin measurement (mass/volume) 2.8 mg/dL 0.1-1.0 Serum or plasma alkaline phosphatase measurement (enzymatic activity/volume) 94 U/L 40-136 Serum or plasma aspartate aminotransferase measurement (enzymatic activity/ volume) 84 U/L 5-34 Serum or plasma alanine aminotransferase measurement (enzymatic activity/volume ) 293 U/L 0-55 Serum or plasma protein measurement (mass/volume) 6.2 g/dL 6.4-8.2 Serum or plasma albumin measurement (mass/volume) 2.9 g/dL 3.2-4.5 Bilirubin direct 1.7 mg/dL 0.0-0.3 Serum or plasma indirect bilirubin measurement (mass/volume) 1.1 mg/ dL NRG Capillary blood glucose measurement by glucometer (mass/volume) - 10/25/16 10: 55 Capillary blood glucose measurement by glucometer (mass/volume) 126 mg/dL 70-110 Encounters ACCT No. Visit Date/Time Discharge Status Pt. Type Provider Facility Loc./Unit Complaint [id number] 03/11/2014 07:29:00 03/11/2014 23:59:59 CLS Outpatient SAPPHIRE FRANK APRN [id number] 03/02/2014 15:39:00 03/02/2014 23:59:59 CLS Outpatient KYEL FARIAS DO [id number] 10/20/2013 15:10:00 10/20/2013 23:59:59 CLS Outpatient ZAC SAPPHIRE CASTRO Blanca [id number] 05/14/2013 17:12:00 05/14/2013 23:59:59 CLS Outpatient KUN BASILIO MD [id number] 09/08/2012 15:44:00 09/08/2012 23:59:59 CLS Outpatient [id number] 09/08/2012 15:44:00 09/08/2012 23:59:59 CLS Outpatient SAPPHIRE FRANK APRN [id number] 04/23/2013 08:00:00 Document Registration [id number] 01/08/2013 15:59:00 Document Registration [id number] 09/06/2017 08:53:00 09/06/2017 23:59:59 CLS Outpatient EDEL CHUN [facility] CARD CAD I25.10 [id number] 08/05/2017 11:29:00 08/05/2017 23:59:59 CLS Outpatient EDEL CHUN [facility] LAB I25.5 I25.10 I50.22 I48.2 [id number] 10/21/2016 22:14:00 10/25/2016 16:08:00 DIS Inpatient EDUAR PAULA MD [facility] 4TH INFLUENZA A; SEPSIS; PNEUMONIA; ELEVATED LOWER ENZ [id number] 10/12/2016 11:00:00 10/12/2016 23:59:59 CLS Preadmit JESICA PATRICK MD, FACC, FACP CCDS [facility] CR CHF,IMPLANT [id number] 07/30/2016 12:01:00 10/11/2016 00:01:00 DIS Outpatient JESICA PATRICK MD, FACC, FACP CCDS [facility] CR CHF,IMPLANT [id number] 09/06/2016 13:05:00 09/06/2016 23:59:59 CLS Outpatient KYLE FARIAS DO [facility] RAD CONGESTIVE HEART FAILURE [id number] 08/03/2016 11:25:00 08/03/2016 23:59:59 CLS Outpatient DARNELL ROSARIO FACC, ALI FACP CCDS [facility] RAD EVALUATION FOR ASCITES,CHF [id number] 07/09/2016 16:28:00 07/12/2016 00:01:00 DIS Outpatient DARNELL ROSARIO FACC, ALI FACP CCDS [facility] CR CHF,IMPLANT [id number] 04/13/2016 13:53:00 04/13/2016 23:59:59 CLS Outpatient DARNELL ROSARIO FACC, ALI FACP CCDS [facility] CARD CAD,DM,DM II [id number] 02/07/2016 09:30:00 02/08/2016 14:30:00 DIS Outpatient DARNELL ROSARIO FACC, JESICA FACP CCDS [facility] CATH CARDIOMYOPATHY,CAD,HTN [id number] 01/21/2016 12:13:00 01/26/2016 15:26:00 DIS Inpatient WALDEMAR BERGERON MD [facility] ICU EXACERBATION OF CHF, SHORT RUN OF V TACH,BRONCHITIS [id number] 10/14/2015 13:59:00 10/14/2015 23:59:59 CLS Outpatient DARNELL ROSARIO FACC, ALI FACP CCDS [facility] CARD CARDIOMYOPATHY, CAD [id number] 05/24/2015 13:23:00 05/24/2015 23:59:59 CLS Outpatient DARNELL ROSARIO FACC, ALI FACP CCDS [facility] CARD CARDIOMYOPATHY [id number] 05/19/2015 07:37:00 05/19/2015 23:59:59 CLS Outpatient DARNELL ROSARIO FACC, ALI FACP CCDS [facility] CARD A FLUTTER, CAD [id number] 04/18/2015 09:13:00 04/20/2015 11:30:00 DIS Inpatient KYLE FARIAS DO [facility] CSD CHF TACHYCARDIA
--- NOTE | 2017-11-11 10:16 | Consultation ---
History of Present Illness History of Present Illness Patient Consulted On(claire/time) 11/11/17 10:11 Time Seen by Provider: 09:52 History of Present Illness Surgery is asked to consult regarding Ascites, Pleural Effusion and Elevated LFT 's. HPI per ED: Here by private vehicle with report of weakness and confusion that started this morning but definitely worsened this afternoon. No reported nausea or vomiting. Patient reports that he has not urinated today. He is answering questions well with yes or no but is confused and is not able to really define his situation. He is confused on date. Denies pain currently or respiratory problems. Denies weakness but was two-person assist to get out of the wheelchair. Daughter arrives with him. Timing/Duration: 24 Hours Severity: Moderate, Severe Associated Systoms: Fever/Chills, No Nausea/Vomiting, No Shortness of Air, Weakness When seen today pt denies any abdominal pain, he states he came in yesterday because he was feeling weak but feels stronger today. He appear comfortable and not in any respiratory distress. Allergies and Home Medications Allergies Coded Allergies: No Known Drug Allergies (Unverified , 04/17/15) Home Medications Allopurinol 100 Mg Tablet, 100 MG PO DAILY, (Reported) Amiodarone HCl 200 Mg Tablet, 200 MG PO DAILY, (Reported) Amoxicillin/Potassium Clav 1 Each Tablet, 875 MG PO BID WITH MEALS Prescribed by: CAMMY MIXON on 10/25/16 1139 Apixaban 2.5 Mg Tablet, 2.5 MG PO BID Prescribed by: CAMMY MIXON on 10/25/16 1145 Aspirin 81 Mg Tablet.dr, 81 MG PO HS, (Reported) Cod Liver Oil 1 Each Capsule, 1 CAP PO DAILY, (Reported) Furosemide 40 Mg Tablet, 40 MG PO BID, (Reported) Garlic 1 Each Capsule, 1 CAP PO DAILY, (Reported) Glyburide 5 Mg Tablet, 2.5 MG PO DAILY, (Reported) TAKES 1/2 (5MG) TABLET Metoprolol Succinate 50 Mg Tab.er.24h, 50 MG PO DAILY, (Reported) Metoprolol Succinate 25 Mg Tab.er.24h, 25 MG PO HS, (Reported) Oseltamivir Phosphate 75 Mg Cap, 1 EACH PO BID Prescribed by: CAMMY MIXON on 10/25/16 1143 Sacubitril/Valsartan 1 Each Tablet, 1 TAB PO BID, (Reported) Patient Home Medication List Home Medication List Reviewed: Yes Past Ptocmir-Ybjjph-Luckzt Hx Patient Social History Alcohol Use: Denies Use Recreational Drug Use: No Smoking Status: Former Smoker Former Smoker, Quit: Sep 02, 1973 Recent Foreign Travel: No Contact w/Someone Who Travel: No Recent Infectious Disease Expo: No Recent Hopitalizations: No Physical Abuse Screen: No Sexual Abuse: No Immunizations Up To Date Tetanus Booster (TDap): Unknown PED Vaccines UTD: No Date of Pneumonia Vaccine: Jun 02, 2017 Date of Influenza Vaccine: Jun 05, 2017 Seasonal Allergies Seasonal Allergies: No Surgeries History of Surgeries: Yes (PACEMAKER) Surgeries: Cardiac, CABG, Defibrillator, Pacemaker Respiratory History of Respiratory Disorde: No Cardiovascular History of Cardiac Disorders: Yes (CABG/ATRIAL FLUTTER, congestive heart failure) Cardiac Disorders: Atrial Fibrillation, Cardiomyopathy, Coronary Artery Disease , Hypertension, Valvular Heart Disease Neurological History of Neurological Disord: No Reproductive System Hx Reproductive Disorders: No Sexually Transmitted Disease: No HIV/AIDS: No Genitourinary History of Genitourinary Disor: No Genitourinary Disorders: Kidney Stones Gastrointestinal History of Gastrointestinal Di: No Musculoskeletal History of Musculoskeletal Dis: No Endocrine History of Endocrine Disorders: Yes Endocrine Disorders: Diabetes, Non-Insulin dep HEENT History of HEENT Disorders: No Cancer History of Cancer: No Psychosocial History of Psychiatric Problem: No Integumentary History of Skin or Integumenta: No Blood Transfusions History of Blood Disorders: No Reviewed Nursing Assessment Reviewed/Agree w Nursing PMH: Yes Family Medical History Significant Family History: Cancer (Mother and sister), Hypertension (Father) Review of Systems-General Constitutional: No chills, No diaphoresis, weakness EENTM: No blurred vision, No mouth swelling, No epistaxis Respiratory: No cough, No hemoptysis, short of breath Cardiovascular: No chest pain, Hx of Intervention, vascular heart diseas Gastrointestinal: No abdominal pain, No hematemesis Genitourinary: No dysuria, No frequency, No hematuria Skin: No change in color, No change in hair/nails Physical Exam-General Problems Physical Exam Vital Signs Vital Signs - First Documented 11/10/17 11/11/17 18:16 00:21 Temp 96.8 Pulse 80 Resp 20 B/P (MAP) 118/89 (99) Pulse Ox 98 O2 Delivery Room Air FiO2 21 Capillary Refill : Less Than 3 Seconds General Appearance: no apparent distress, thin Eyes: Bilateral Eye PERRL, Bilateral Eye EOMI HEENT: pharynx normal, scleral icterus (R), scleral icterus (L) Neck: supple, No thyromegaly Respiratory: decreased breath sounds (left more than right), crackles, other ( dullness to percusion on left) Cardiovascular: systolic murmur, other (Paced rhythm) Gastrointestinal: normal bowel sounds, soft, No guarding, No rebound, hepatomegaly Back: no CVA tenderness, no vertebral tenderness Extremities: normal range of motion, no calf tenderness, normal capillary refill Neurologic/Psychiatric: welfare interviewer II-XII nml as tested, alert, normal mood/affect Skin: warm/dry Lymphatic: no adenopathy (neck, axilla or groin) Data Review Labs Laboratory Tests 11/10/17 18:14: Glucometer 153H 11/10/17 19:00: Blood Gas Puncture Site LEFT BRACHIAL, Blood Gas Patient Temperature 94.5, Arterial Blood pH 7.47H, Arterial Blood Partial Pressure CO2 30L, Arterial Blood Partial Pressure O2 80, Arterial Blood HCO3 22L, Arterial Blood Total CO2 23.4, Arterial Blood Oxygen Saturation 98, Arterial Blood Base Excess -1.2, Oli Test NA, Blood Gas Ventilator Setting NO, Blood Gas Inspired Oxygen ROOM AIR 11/10/17 19:13: White Blood Count 8.8, Red Blood Count 6.15H, Hemoglobin 17.6, Hematocrit 52, Mean Corpuscular Volume 84, Mean Corpuscular Hemoglobin 29, Mean Corpuscular Hemoglobin Concent 34, Red Cell Distribution Width 20.8H, Platelet Count 146, Mean Platelet Volume 11.2H, Neutrophils (%) (Auto) 80H, Lymphocytes (%) (Auto) 13, Monocytes (%) (Auto) 7, Eosinophils (%) (Auto) 0, Basophils (%) (Auto) 0, Neutrophils # (Auto) 7.0, Lymphocytes # (Auto) 1.2, Monocytes # (Auto) 0.6, Eosinophils # (Auto) 0.0, Basophils # (Auto) 0.0, Prothrombin Time 19.8H, INR Comment 1.7H, Activated Partial Thromboplast Time 33, Sodium Level 137, Potassium Level 4.3, Chloride Level 101, Carbon Dioxide Level 23, Anion Gap 13, Blood Urea Nitrogen 35H, Creatinine 1.44H, Estimat Glomerular Filtration Rate 48 , BUN/Creatinine Ratio 24, Glucose Level 153H, Lactic Acid Level 3.63*H, Calcium Level 9.9, Magnesium Level 2.0, Total Bilirubin 5.1H, Aspartate Amino Transf (AST/SGOT) 48H, Alanine Aminotransferase (ALT/SGPT) 34, Alkaline Phosphatase 145H, Troponin I < 0.30, C-Reactive Protein High Sensitivity 1.88H, B-Type Natriuretic Peptide 1594.0H, Total Protein 8.0, Albumin 3.5, Thyroid Stimulating Hormone (TSH) 3.53 11/10/17 20:20: Urine Color AMBERH, Urine Clarity CLEAR, Urine pH 5, Urine Specific [place] 1.025H, Urine Protein 3+H, Urine Glucose (UA) 1+H, Urine Ketones NEGATIVE, Urine Nitrite POSITIVEH, Urine Bilirubin 2+H, Urine Urobilinogen 12H, Urine Leukocyte Esterase 1+H, Urine RBC (Auto) 3+H, Urine RBC 5-10H, Urine WBC 0-2, Urine Crystals PRESENTH, Urine Amorphous Sediment FEW HILDA URATESH, Urine Bacteria NONE, Urine Casts NONE, Urine Mucus NEGATIVE, Urine Culture Indicated YES 11/10/17 21:12: Lactic Acid Level 2.55*H 11/11/17 03:05: Lactic Acid Level 2.21*H, White Blood Count 7.7, Red Blood Count 5.53, Hemoglobin 16.1, Hematocrit 47, Mean Corpuscular Volume 84, Mean Corpuscular Hemoglobin 29, Mean Corpuscular Hemoglobin Concent 35, Red Cell Distribution Width 20.5H, Platelet Count 120L, Mean Platelet Volume 10.9H, Neutrophils (%) ( Auto) 78H, Lymphocytes (%) (Auto) 12, Monocytes (%) (Auto) 11, Eosinophils (%) ( Auto) 0, Basophils (%) (Auto) 0, Neutrophils # (Auto) 5.9, Lymphocytes # (Auto) 0.9L, Monocytes # (Auto) 0.8, Eosinophils # (Auto) 0.0, Basophils # (Auto) 0.0, Sodium Level 136, Potassium Level 4.5, Chloride Level 102, Carbon Dioxide Level 21, Anion Gap 13, Blood Urea Nitrogen 34H, Creatinine 1.06, Estimat Glomerular Filtration Rate > 60, BUN/Creatinine Ratio 32, Glucose Level 127H, Calcium Level 8.9, Phosphorus Level 3.5, Magnesium Level 1.9, Total Bilirubin 4.8H, Aspartate Amino Transf (AST/SGOT) 44H, Alanine Aminotransferase (ALT/SGPT) 27, Alkaline Phosphatase 106, Total Protein 6.6, Albumin 2.9L 11/11/17 05:04: Lactic Acid Level 1.80 11/11/17 07:08: Ammonia 64H Assessment/Plan Assessment/Plan Assessment/Plan Ascites Pleural Effusion Hyperbilirubinemia Elevated ammonia level CHF AMS Pt has multiple medical problems, most likely secondary to his CHF. His O2 saturation is 100% so probably doesn't need a thoracentesis at this time. The US of abdomen did not really have much fluid; probably not enough to do paracentesis. He would benefit from Lactulose to try and bring down ammonia level. Would watch LFT's, most likley elevated secondary to back-up of liver caused by CHF. I will follow along if anything is needed, thank you for the consult. Clinical Quality Measures DVT/VTE Risk/Contraindication: Risk Factor Score Per Nursin RFS Level Per Nursing on Admit: 4+=Very High SINHG GRIMES DO Nov 11, 2017 10:16
--- OUTSIDE RECORDS SUMMARY | 2017-11-11 10:38 | XMS REPORT | Encounter Summary ---
Author Author [facility] Organization [facility] Address Unknown Phone Unavailable Care Team Providers Care Director Presales Name Role Phone Kalina Garza Unavailable RoperNidhi PCP Vickie Monroe RN Unavailable Unavailable Reason for Visit * Reason Comments Medication Refill Encounter Details Date Type Department Care Team Description 10/18/2017 Refill [facility] Gagan Hernández MD Medication Refill [address] [place] [address] [place] [address] [phone] Social History Tobacco Use Types Packs/Day Years [...] Frannie Daley, RN - 10/18/2017 9:27 AM PET ADOPTION COUNSELOR Overdue for OV, sees Dr Montes De Oca Is not going to f/u with [facility] in this encounter Plan of Treatment Not on fileas of this encounter Visit Diagnoses Not on filein this encounter
--- OUTSIDE RECORDS SUMMARY | 2017-11-11 10:38 | XMS REPORT | Encounter Summary ---
Author Author [facility] Organization [facility] Address Unknown Phone Unavailable Care Team Providers Care Natural Resource Officer Name Role Phone Kalina Garza Unavailable Judson Nidhi PCP Vickie Monroe RN Unavailable Unavailable Reason for Visit * Reason Comments Follow Up Sees Dr. Montes De Oca in [place] Encounter Details Date Type Department Care Team Description 10/02/2017 Telephone [facility] Cardiology Malina Dumont RN Follow Up (Sees [id number] Montes De Oca in [place]) [address] [place] [address] Social History Tobacco Use Types Packs/Day Years [...] Ger Morales RN - 10/09/2017 10:48 AM ORTHOPEDICS PEDIATRIC PHYSICIAN Called patient and spoke with spouse. They [...] Malina Dumont RN - 10/02/2017 9:22 AM ORTHOPEDICS PEDIATRIC PHYSICIAN Noted per chart review that pt has not had OV since 09/2016 (when CRTD was implanted) yet we have been doing q 3 mo remote. Looks like there have been a few attempts to contact pt for f/u appts. I tried to call pt. No answer at home number. Left VM at cell number listed. I called Dr. Montes De Oca's office in [facility] and spoke to his nurse Angelina. Pt has been f/u regularly there. (Pt lives in [facility]) His last CRTD check was in June [...]
--- OUTSIDE RECORDS SUMMARY | 2017-11-11 10:38 | XMS REPORT | Encounter Summary ---
Author Author [facility] Organization [facility] Address Unknown Phone Unavailable Care Team Providers Care Clipman Name Role Phone Kalina Garza Unavailable JudsonNidhi PCP Vickie Monroe RN Unavailable Unavailable Encounter Details Date Type Department Care Team Description 09/19/2017 [facility] Cardiology Gagan Hernández MD Encounter Remote Device Check [address] [phone] [place] [address] [phone] Social History Tobacco Use Types Packs/Day Years [...] artery disease involving coronary bypass graft of [place] heart without angina pectoris, Essential hypertension, PVC's [...] artery disease involving coronary bypass graft of [place] heart without angina pectoris, Essential hypertension, PVC's [...] Ref Range Generator Model # INOGEN X4 LABORER YARD-D G148 Generator Serial # [id number] Generator Implnat Date 09/13/2016 GUILLERMINA/EOL Indicator perl programmer/transmitter indicated Generator Physician/Internist Nimbix Generator Investigational No Wireless Generator Yes Device Type LABORER YARD-D Device [place] Latitude Consult Transmitter Compatible Atrial Lead Model # CapSureFix Novus MRI SureScan 5076 - 52cm Atrial Lead Serial # [id number] Atrial Lead Implant Date 09/13/2016 Atrial Lead Diaph. 10 Stimulation Atrial Lead Physician/Internist Medtronic Atrial Lead No Investigational Atrial Lead Fixation active fixation Atrial Lead Location mid lateral right atrium Atrial Lead Pin Connector IS1 Atrial Lead Polarity Bipolar RV Lead Model # ENDOTAK RELIANCE G Model 0296 64cm RV Lead Serial # [id number] RV Lead Implant Date 09/13/2016 RV Lead Diaph. 10 Stimulation RV Lead Physician/Internist [employer] RV Lead Investigational No RV Lead Fixation active fixation RV Lead Location RV low septum RV Lead Pin Connector ICD IS1 RV Lead Coil Dual LV Lead Model # ACUITY X4 Spiral S Model 4674 LV Lead Serial # [id number] LV Lead Implant Date 09/13/2016 LV Lead Polarity Other IS4 LV Lead Configuration E1-E3 Other LV Lead Physician/Internist [employer] LV Lead Investigational No LV Lead [...] Pacemaker Dependant Yes EP Device Followed By [facility] Date of Last Remote Check 09/19/17 AT/AF Daily [place] Hours 6 Remote Monitoring? No Daily [place] Threshld On Alert? VF Detection/Therapy Off On [...] 09/19/17 and reviewed today for 3 chamber LABORER YARD-D.Device function appears appropriate. Presenting EGM shows Ap-BiVp 80bpm. Battery longevity 8yr. Events noted since 06/19/17: Atrial:none. Ventricular:none. Pt is BiVP 100% of the time. PVC burden/amount: 659 over last 91day. Next follow up appt is currently pending. Pt has not been seen here since implant but last check was 06/19/17 so I suspect he is being followed by Dr. Montes De Oca in [place]. Next remote scheduled for 3 months. Results routed to Dr. Hernández for signature and review. __ in this encounter Visit Diagnoses Diagnosis ICD (implantable cardioverter-defibrillator) in place
--- OUTSIDE RECORDS SUMMARY | 2017-11-11 10:38 | XMS REPORT | Encounter Summary ---
Author Author [facility] Organization [facility] Address Unknown Phone Unavailable Support Name Relationship Address Phone Makayla Roper [address] [address] Matty Roper Unknown Care Team Providers Care Silviculture Forester Name Role Phone Kalina Garza Unavailable JudsonNidhi PCP Vickie Monroe RN Unavailable Unavailable Reason for Visit * Reason Comments Medication Refill Encounter Details Date Type Department Care Team Description 10/16/2017 Refill [facility] Cardiology Ernie Theodore MD Medication Refill [address] [place] [address] [place] [address] [phone] Social History Tobacco Use Types Packs/Day Years [...] artery disease involving coronary bypass graft of [place] heart without angina pectoris Essential hypertension Unspecified [...]
--- OUTSIDE RECORDS SUMMARY | 2017-11-11 10:38 | XMS REPORT | Clinical Summary ---
Author Author [facility] Organization [facility] Address Unknown Phone Unavailable Care Team Providers Care Waterproof Material Folder Name Role Phone Kalina Garza Unavailable JudsonNidhi PCP Vickie Monroe RN Unavailable Unavailable Source Comments Some departments are not documenting in the electronic medical record. If you do not see the information that you expected, contact Release of Information in the Health Information Management department at [phone] for further assistance in locating additional records.[facility] Allergies No Known Allergies Current Medications Prescription [...] artery disease involving coronary bypass graft of [place] heart without angina pectoris, Essential hypertension, PVC's [...] artery disease involving coronary bypass graft of [place] heart without angina pectoris, Essential hypertension, PVC's [...] in situ 2016 Overview: 2016 Single-chamber ICD ([employer]) 09/13/16 RV lead revision, RA/LV lead placement and upgrade to EXPLOSIVES DETONATOR-D (Defibrillation threshold testing (DFTs) at the time [...] CROW LVEF 35 - 40% 02/07/16 [facility]: Single chamber ICD implantation: [employer] [place] passive dual coil 64 cm lead with model number 0286 and serial number [id number], lead - [employer] model E140 serial number [id number] Chronic combined systolic and diastolic congestive heart failure (HCC) 05/17 Typical atrial flutter (HCC) 05/17/2015 Overview: 04/19/15: Successful DCCV. 04/19/15: CROW: EF 35-40%. Moderately impaired LV function. Moderate AV sclerosis. No thrombus. Mild MR. 04/18/15: Echo: LA size 5.1cm. EF 30%. 04/17/15: CT angio chest: No Pulm Embolism. Cardiac enlargement wit post sternotomy changes. Coronary artery disease involving coronary bypass graft of [place] heart without angina pectoris Overview: 2008: CAB[place]. CABG x 5 - CARDONA to [...] Up (Sees Dr. Montes De Oca in [place]) 09/19/2017 [facility] Cardiology Gagan Hernández MD Encounter from Last [...] Taken Blood Pressure 94/63 09/19/2016 12:08 PM CIRCUIT BREAKER SUPERVISOR Pulse 80 09/19/2016 12:08 PM CIRCUIT BREAKER SUPERVISOR Temperature 36.5 C (97.7 F) 09/19/2016 12:08 PM CIRCUIT BREAKER SUPERVISOR Respiratory Rate - - Oxygen Saturation 97% 09/19/2016 12:08 PM CIRCUIT BREAKER SUPERVISOR Inhaled Oxygen - - Concentration Weight 89.8 kg (198 lb) 09/19/2016 6:00 AM CIRCUIT BREAKER SUPERVISOR Height 182.9 cm (6') 09/13/2016 7:51 PM CIRCUIT BREAKER SUPERVISOR Body Mass Index 26.85 09/19/2016 6:00 AM CIRCUIT BREAKER SUPERVISOR Plan of Treatment Health Maintenance Due Date Last Done Comments PHYSICAL (COMPREHENSIVE) 1948 EXAM PERTUSSIS VACCINE 1952 TETANUS VACCINE 1958 DILATED EYE EXAM 1959 FOOT EXAM 1959 HBA1C 1959 MICROALBUMIN 1959 SHINGLES VACCINE 2001 PREVNAR/PNEUMOVAX (#1) 2006 INFLUENZA VACCINE 06/02/2018 Results * DEVICE EVALUATION - REMOTE ICD (10/02/2017 9:02 AM) Component Value Ref Range Generator Model # INOGEN X4 EXPLOSIVES DETONATOR-D G148 Generator Serial # [id number] Generator Implnat Date 09/13/2016 GUILLERMINA/EOL Indicator senior systems programmer/transmitter indicated Generator Hydrotreater Operator [employer] Generator Investigational No Wireless Generator Yes Device Type EXPLOSIVES DETONATOR-D Device [place] Latitude Consult Transmitter Compatible Atrial Lead Model # CapSureFix Novus MRI SureScan 5076 - 52cm Atrial Lead Serial # [id number] Atrial Lead Implant Date 09/13/2016 Atrial Lead Diaph. 10 Stimulation Atrial Lead Hydrotreater Operator Medtronic Atrial Lead No Investigational Atrial Lead Fixation active fixation Atrial Lead Location mid lateral right atrium Atrial Lead Pin Connector IS1 Atrial Lead Polarity Bipolar RV Lead Model # ENDOTAK RELIANCE G Model 0296 64cm RV Lead Serial # [id number] RV Lead Implant Date 09/13/2016 RV Lead Diaph. 10 Stimulation RV Lead Hydrotreater Operator [employer] RV Lead Investigational No RV Lead Fixation active fixation RV Lead Location RV low septum RV Lead Pin Connector ICD IS1 RV Lead Coil Dual LV Lead Model # ACUITY X4 Spiral S Model 4674 LV Lead Serial # [id number] LV Lead Implant Date 09/13/2016 LV Lead Polarity Other IS4 LV Lead Configuration E1-E3 Other LV Lead Hydrotreater Operator [employer] LV Lead Investigational No LV Lead [...] Pacemaker Dependant Yes EP Device Followed By [facility] Date of Last Remote Check 09/19/17 AT/AF Daily [place] Hours 6 Remote Monitoring? No Daily [place] Threshld On Alert? VF Detection/Therapy Off On [...] 09/19/17 and reviewed today for 3 chamber EXPLOSIVES DETONATOR-D.Device function appears appropriate. Presenting EGM shows Ap-BiVp 80bpm. Battery longevity 8yr. Events noted since 06/19/17: Atrial:none. Ventricular:none. Pt is BiVP 100% of the time. PVC burden/amount: 659 over last 91day. Next follow up appt is currently pending. Pt has not been seen here since implant but last check was 06/19/17 so I suspect he is being followed by Dr. Montes De Oca in [place]. Next remote scheduled for 3 months. Results routed to Dr. Hernández for signature and review. __ from Last 3 Months
--- OUTSIDE RECORDS SUMMARY | 2017-11-11 10:38 | XMS REPORT | Continuity of Care Document ---
Author Author [employer] Organization [facility] Address Unknown Phone Unavailable Care Team Providers Care Photogravure Press Operator Name Role Phone [employer] Unavailable Unavailable Problems Medications Allergies, Adverse Reactions, Alerts Immunizations Results Vital Signs Encounters Location Location Details Encounter Type Encounter Number Reason For Visit Attending Provider ADM Date DC Date Status Source OUTPATIENT [id number] MARITZA DIGGS 03/21/2017 03/21/2017 Active [facility] OUTPATIENT [id number] MARITZA DIGGS 06/20/2017 06/20/2017 Active [facility] OUTPATIENT [id number] MARITZA DIGGS 09/19/2017 09/19/2017 Active [facility] O Active [facility] Procedures Plan of Care Social History Assessment and Plan Family History Advance Directives Functional Status
--- OUTSIDE RECORDS SUMMARY | 2017-11-11 10:42 | XMS REPORT | Continuity of Care Document ---
Author Author [facility] Address Unknown Phone Unavailable Allergies Active Description Code Type Severity Reaction Onset Reported/Identified Relationship to Patient Clinical Status Yes No Known Drug Allergies [id number] Drug Allergy Unknown N/A 04/17/2015 Medications There [...] BASILIO MD V76.44 psa screening 05/15/2010 ZAC METAL MOCKUP MAKER, SAPPHIRE S 429.3 ATHLETE'S HEART 05/15/2010 ZAC METAL MOCKUP MAKEREMORY PonceNDA S V76.44 psa screening 05/15/2010 ZAC METAL MOCKUP MAKER, SAPPHIRE S 429.3 ATHLETE'S HEART 05/15/2010 ZAC METAL MOCKUP MAKER, SAPPHIRE S V76.44 psa screening 05/15/2010 FARIAS DO KYLE K 429.3 ATHLETE'S HEART 05/15/2010 FARIAS DO KYLE K V76.44 psa screening 04/28/2012 EMORY FRANK APRNNDA S 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 [place] OR GRAFT 04/28/2012 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 [place] OR GRAFT 04/28/2012 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 [place] OR GRAFT 04/28/2012 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 [place] OR GRAFT 04/28/2012 KUN BASILIO MD 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 [place] OR GRAFT 04/28/2012 ZAC CASTRO SAPPHIRE S 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 [place] OR GRAFT 04/28/2012 EMORY FRANK APRNNDA S 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 [place] OR GRAFT 04/28/2012 FARIAS DO, KYLE K 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 [place] OR GRAFT 04/19/2015 FARIAS DO, KYLE K [...] FARIAS DO, KYLE K Ot 250.00 04/20/2015 FARIAS DO, KYLE K Ot 272.4 04/20/2015 FARIAS [...] FACP CCDS Ot 427.32 10/14/2015 DARNELL ROSARIO [facility], ALI FACP CCDS Ot 428.42 10/14/2015 DARNELL ROSARIO [facility], ALI FACP CCDS Ot 250.00 10/14/2015 DARNELL ROSARIO [facility], ALI FACP CCDS Ot 414.9 10/14/2015 DARNELL ROSARIO [facility], ALI FACP CCDS Ot 425.4 10/14/2015 DARNELL ROSARIO [facility], ALI FACP CCDS Ot 427.32 10/14/2015 DARNELL ROSARIO [facility], ALI FACP CCDS Ot 428.42 11/04/2015 DARNELL ROSARIO [facility], ALI FACP CCDS Ot E11.9 11/04/2015 DARNELL ROSARIO [facility], ALI FACP CCDS Ot I25.10 11/04/2015 DARNELL ROSARIO [facility], ALI FACP CCDS Ot I42.0 11/04/2015 DARNELL MD [facility], ALI FACP CCDS Ot I48.3 11/28/2015 DARNELL ROSARIO [facility], ALI FACP CCDS Ot E11.9 11/28/2015 DARNELL MD [facility], ALI FACP CCDS Ot I25.10 11/28/2015 DARNELL MD [facility], ALI FACP CCDS Ot I42.0 11/28/2015 DARNELL MD [facility], ALI FACP CCDS Ot I48.3 01/23/2016 WALDEMAR BERGERON MD Ot E11.9 TYPE 2 DIABETES MELLITUS WITHOUT COMPLIC 01/23/2016 WALDEMAR BERGERON MD Ot I10 ESSENTIAL (PRIMARY) HYPERTENSION 01/23/2016 WALDEMAR BERGERON MD Ot I25.10 ATHSCL HEART DISEASE OF [place] CORONARY 01/23/2016 WALDEMAR BERGERON MD Ot I25.5 [...] MD Ot I25.10 ATHSCL HEART DISEASE OF [place] CORONARY 01/24/2016 WALDEMAR BERGERON MD Ot I25.5 [...] MD Ot I25.10 ATHSCL HEART DISEASE OF [place] CORONARY 01/24/2016 WALDEMAR BERGERON MD Ot I25.5 [...] MD Ot I25.10 ATHSCL HEART DISEASE OF [place] CORONARY 01/24/2016 WALDEMAR BERGERON MD Ot I25.5 [...] MD Ot I25.10 ATHSCL HEART DISEASE OF [place] CORONARY 01/25/2016 WALDEMAR BERGERON MD Ot I25.5 [...] MD Ot I25.10 ATHSCL HEART DISEASE OF [place] CORONARY 01/26/2016 WALDEMAR BERGERON MD Ot I25.5 [...] MD Ot I25.10 ATHSCL HEART DISEASE OF [place] CORONARY 01/26/2016 WALDEMAR BERGERON MD Ot I25.5 [...] CCDS Ot I25.10 ATHSCL HEART DISEASE OF [place] CORONARY 02/08/2016 JESICA PATRICK MD, FACC FACP [...] CCDS Ot I25.10 ATHSCL HEART DISEASE OF [place] CORONARY 03/07/2016 JESICA PATRICK MD, FACC FACP CCDS Ot I42.0 DILATED CARDIOMYOPATHY 03/07/2016 JESICA PATRICK MD, FACC FACP CCDS Ot I48.0 PAROXYSMAL ATRIAL FIBRILLATION 03/07/2016 JESICA PATRICK MD, FACC FACP CCDS Ot I50.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 03/07/2016 JESICA PATRICK MD, FACCP CCDS Ot Z79.01 PENITENTIARY (CURRENT) USE OF ANTICOAGULANT 03/07/2016 JESICA PATRICK MD, FACCP CCDS Ot Z79.899 OTHER DEPARTMENT STORE DOOR GREETER (CURRENT) DRUG THERAPY 03/07/2016 JESICA PATRICK MD, FACCP CCDS Ot Z95.1 PRESENCE OF AORTOCORONARY BYPASS GRAFT 04/16/2016 JESICA PATRICK MD, FACC FACP CCDS Ot E11.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 04/16/2016 JESICA PATRICK MD, FACC FACP CCDS Ot I25.10 ATHSCL HEART DISEASE OF [place] CORONARY 04/16/2016 JESICA PATRICK MD, FACC FACP [...] CCDS Ot I25.10 ATHSCL HEART DISEASE OF [place] CORONARY 04/24/2016 DARNELL ROSARIO FACC, JESICA FACP [...] CCDS Ot I25.10 ATHSCL HEART DISEASE OF [place] CORONARY 04/24/2016 DARNELL ROSARIO FACC, JESICA FACP CCDS Ot I42.0 DILATED CARDIOMYOPATHY 04/24/2016 DARNELL ROSARIO FACC, JESICA FACP CCDS Ot I50.23 ACUTE ON CHRONIC SYSTOLIC (CONGESTIVE) H 05/04/2016 DARNELL ROSARIO FACC, JESICA FACP CCDS Ot E11.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 05/04/2016 DARNELL ROSARIO FACC, JESICA FACP CCDS Ot I25.10 ATHSCL HEART DISEASE OF [place] CORONARY 05/04/2016 DARNELL ROSARIO FACC, JESICA FACP CCDS Ot I42.0 DILATED CARDIOMYOPATHY 05/04/2016 DARNELL ROSARIO FACC, JESICA FACP CCDS Ot I50.23 ACUTE ON CHRONIC SYSTOLIC (CONGESTIVE) H 05/11/2016 DARNELL ROSARIO FACC, ALI FACP CCDS Ot E11.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 05/11/2016 DARNELL MD FACC, ALI FACP CCDS Ot I25.10 ATHSCL HEART DISEASE OF [place] CORONARY 05/11/2016 DARNELL ROSARIO FACC, ALI FACP CCDS Ot I42.0 DILATED CARDIOMYOPATHY 05/11/2016 DARNELL ROSARIO FACC, ALI FACP CCDS Ot I50.23 ACUTE ON CHRONIC SYSTOLIC (CONGESTIVE) H 05/24/2016 DARNELL WONGC, ALI FACP CCDS Ot I50.9 HEART FAILURE, UNSPECIFIED 05/30/2016 DARNELL ROSARIO FACC, ALI FACP CCDS Ot I50.9 HEART FAILURE, UNSPECIFIED 07/12/2016 DARNELL WONGC, ALI FACP CCDS Ot I50.9 HEART FAILURE, UNSPECIFIED 07/13/2016 DARNELL ROSARIO FACC, ALI FACP CCDS Ot [...] Ot I50.9 HEART FAILURE, UNSPECIFIED 08/30/2016 DARNELL ORSARIO FACC, ALI FACP CCDS Ot I48.2 CHRONIC [...] PRESENCE OF CARDIAC PACEMAKER 10/11/2016 DARNELL ROSARIO [facility], JESICA ASTORGA CCDS Ot I50.9 HEART FAILURE, [...] MD Ot I25.10 ATHSCL HEART DISEASE OF [place] CORONARY 10/25/2016 EDUAR PAULA MD Ot I25.5 [...] SHOCK 10/25/2016 EDUAR PAULA MD Ot Z79.01 DEPARTMENT STORE DOOR GREETER (CURRENT) USE OF ANTICOAGULANT 10/25/2016 EDUAR PAULA MD Ot Z79.84 PENITENTIARY (CURRENT) USE OF ORAL HYPOGLYC 10/25/2016 EDUAR PAULA MD, Ot Z87.891 PERSONAL HISTORY OF NICOTINE DEPENDENCE 10/25/2016 EDUAR PAULA MD Ot Z95.1 PRESENCE OF AORTOCORONARY BYPASS GRAFT 10/25/2016 EDUAR PAULA MD Ot Z95.810 PRESENCE OF AUTOMATIC (IMPLANTABLE) CARD 08/06/2017 EDEL CHUN L WATER CARTER Ot I25.10 ATHSCL HEART DISEASE OF [place] CORONARY 08/06/2017 EDEL CHUN L WATER CARTER Ot I25.5 ISCHEMIC CARDIOMYOPATHY 08/06/2017 EDEL CHUN L WATER CARTER Ot I48.2 CHRONIC ATRIAL FIBRILLATION 08/06/2017 EDEL CHUN L WATER CARTER Ot I50.22 CHRONIC SYSTOLIC (CONGESTIVE) HEART FAIL 08/28/2017 EDEL CHUN L WATER CARTER Ot I25.10 ATHSCL HEART DISEASE OF [place] CORONARY 08/28/2017 TAMMI CHUNHER L WATER CARTER Ot I25.5 ISCHEMIC CARDIOMYOPATHY 08/28/2017 TAMMI CHUNHER L WATER CARTER Ot I48.2 CHRONIC ATRIAL FIBRILLATION 08/28/2017 ADIEL EDEL L WATER CARTER Ot I50.22 CHRONIC SYSTOLIC (CONGESTIVE) HEART FAIL 10/03/2017 EDEL CHUN L WATER CARTER Ot I25.10 ATHSCL HEART DISEASE OF [place] CORONARY 10/03/2017 EDEL CHUN L WATER CARTER Ot I25.5 ISCHEMIC CARDIOMYOPATHY 10/03/2017 TAMMI CHUNHER L WATER CARTER Ot I48.2 CHRONIC ATRIAL FIBRILLATION 10/03/2017 TAMMI CHUNHER L WATER CARTER Ot I50.22 CHRONIC SYSTOLIC (CONGESTIVE) HEART FAIL Procedures Code Description [place] [address] MICROALBUMIN 09/08/2012 82120 A1C (IN-HOUSE) 09/08/2012 15759 MICRO ALBUMIN-IN HOUSE 09/08/2012 62459 A1C (IN-HOUSE) 01/08/2013 33500 ROUTINE VENIPUNCTURE 04/23/2013 09695 A1C (IN-HOUSE) 04/23/2013 91770 MICRO ALBUMIN-IN HOUSE 04/23/2013 92609 CBC 04/23/2013 30505 LIPID PANEL 04/23/2013 32764 CMP 04/23/2013 4759135 GFR CALC (RESULT ONLY) 04/23/2013 18305 MICROALBUMIN 04/23/2013 17280 MICRO ALBUMIN-IN HOUSE 03/02/2014 45233 A1C (IN-HOUSE) 03/02/2014 24595 MICROALBUMIN 03/03/2014 06082 ROUTINE VENIPUNCTURE 03/11/2014 66461 CBC 03/11/2014 8925746 GFR CALC (RESULT ONLY) 03/11/2014 86905 CMP 03/11/2014 18330 LIPID PANEL 03/11/2014 37374 TSH 03/11/2014 99.61 04/19/2015 Results Test Result Range Bacterial blood culture - 10/21/16 19:38 QUANTITY OF GROWTH Isolated [facility] Bacterial blood culture [id number] [facility] Influenza virus A and B antigen detection - 10/21/16 19:45 CALL POSITIVES (F1 HELP) CALLED TO JAMES IN ED AT 2023 [facility] FLU RESULT POSITIVE FOR INFLUENZA A ANTIGEN, NEG FOR B ANTIGEN, BY IA [facility] Complete blood count (CBC) with automated [...] Status Pt. Type Provider Facility Loc./Unit Complaint [id number] 03/11/2014 07:29:00 03/11/2014 23:59:59 CLS Outpatient SAPPHIRE FRANK APRN [id number] 03/02/2014 15:39:00 03/02/2014 23:59:59 CLS Outpatient KYLE FARIAS DO [id number] 10/20/2013 15:10:00 10/20/2013 23:59:59 CLS Outpatient ZAC SAPPHIRE CASTRO Blanca [id number] 05/14/2013 17:12:00 05/14/2013 23:59:59 CLS Outpatient KUN BASILIO MD [id number] 09/08/2012 15:44:00 09/08/2012 23:59:59 CLS Outpatient [id number] 09/08/2012 15:44:00 09/08/2012 23:59:59 CLS Outpatient SAPPHIRE FRANK APRN [id number] 04/23/2013 08:00:00 Document Registration [id number] 01/08/2013 15:59:00 Document Registration [id number] 09/06/2017 08:53:00 09/06/2017 23:59:59 CLS Outpatient EDEL CHUN [facility] CARD CAD I25.10 [id number] 08/05/2017 11:29:00 08/05/2017 23:59:59 CLS Outpatient EDEL CHUN [facility] LAB I25.5 I25.10 I50.22 I48.2 [id number] 10/21/2016 22:14:00 10/25/2016 16:08:00 DIS Inpatient EDUAR PAULA MD [facility] 4TH INFLUENZA A; SEPSIS; PNEUMONIA; ELEVATED LOWER ENZ [id number] 10/12/2016 11:00:00 10/12/2016 23:59:59 CLS Preadmit JESICA PATRICK MD, FACC, FACP CCDS [facility] CR CHF,IMPLANT [id number] 07/30/2016 12:01:00 10/11/2016 00:01:00 DIS Outpatient JESICA PATRICK MD, FACC, FACP CCDS [facility] CR CHF,IMPLANT [id number] 09/06/2016 13:05:00 09/06/2016 23:59:59 CLS Outpatient KYLE FARIAS DO [facility] RAD CONGESTIVE HEART FAILURE [id number] 08/03/2016 11:25:00 08/03/2016 23:59:59 CLS Outpatient DARNELL ROSARIO FACC, ALI FACP CCDS [facility] RAD EVALUATION FOR ASCITES,CHF [id number] 07/09/2016 16:28:00 07/12/2016 00:01:00 DIS Outpatient DARNELL ROSARIO FACC, ALI FACP CCDS [facility] CR CHF,IMPLANT [id number] 04/13/2016 13:53:00 04/13/2016 23:59:59 CLS Outpatient DARNELL ROSARIO FACC, ALI FACP CCDS [facility] CARD CAD,DM,DM II [id number] 02/07/2016 09:30:00 02/08/2016 14:30:00 DIS Outpatient DARNELL ROSARIO FACC, JESICA FACP CCDS [facility] CATH CARDIOMYOPATHY,CAD,HTN [id number] 01/21/2016 12:13:00 01/26/2016 15:26:00 DIS Inpatient WALDEMAR BERGERON MD [facility] ICU EXACERBATION OF CHF, SHORT RUN OF V TACH,BRONCHITIS [id number] 10/14/2015 13:59:00 10/14/2015 23:59:59 CLS Outpatient DARNELL ROSARIO FACC, ALI FACP CCDS [facility] CARD CARDIOMYOPATHY, CAD [id number] 05/24/2015 13:23:00 05/24/2015 23:59:59 CLS Outpatient DARNELL ROSARIO FACC, ALI FACP CCDS [facility] CARD CARDIOMYOPATHY [id number] 05/19/2015 07:37:00 05/19/2015 23:59:59 CLS Outpatient DARNELL ROSARIO FACC, ALI FACP CCDS [facility] CARD A FLUTTER, CAD [id number] 04/18/2015 09:13:00 04/20/2015 11:30:00 DIS Inpatient KYLE FARIAS DO [facility] CSD CHF TACHYCARDIA
[2017-11-11] MEDS ORDERED: LISI10TA2 PO (11:06)
[2017-11-11] MEDS ORDERED: POTA10TA6 PO (11:21)
[2017-11-11] MEDS ORDERED: GARL10002 PO (11:21)
[2017-11-11] MEDS ORDERED: MULT-35 PO (11:21)
[2017-11-11] MEDS ORDERED: METO5TAB6 PO (11:23)
--- NOTE | 2017-11-11 13:33 | History & Physicial (CHS) ---
HPI History of Present Illness: 77 yo M with multiple medical comorbidities that presents to the ER brought in by family with increasing confusion. Patient was found to have UTI with Severe Sepsis. Patient states that he had been feeling bad for several days prior to coming to ER. Denies missing doses of medications. Denies any pain. Still pleasantly confused this AM. Source: patient, RN/MD Exam Limitations: clinical condition Date seen by provider: Nov 11, 2017 Time Seen by Provider: 10:09 Attending Physician Ana Pryor DO PCP Nidhi Roper DO Consult Date of Admission Nov 10, 2017 at 20:45 Home Medications Home Medications Reviewed patient Home Medication Reconciliation Form Allergies Coded Allergies: No Known Drug Allergies (Unverified , 04/17/15) JXI-Hafjrr-Gkzjhi Hx Patient Social History Living Status: Lives in home with Alcohol Use: Denies Use Recreational Drug Use: No Smoking Status: Former Smoker Recent Foreign Travel: No Contact w/other who traveled: No Recent Hopitalizations: No Recent Infectious Disease Expo: No Physical Abuse Screen: No Sexual Abuse: No Immunizations Up To Date Tetanus Booster (TDap): Unknown Date of Pneumonia Vaccine: Jun 02, 2017 Date of Influenza Vaccine: Jun 05, 2017 Past Medical History Chronic Systolic CHF EF 20% 2018 Elevated LFTs Chronic Atrial fibrillation Diabetes PVD Family Medical History Significant Family History: Cancer (Mother and sister), Hypertension (Father) Review of Systems ([facility]) Constitutional: No chills, No fever, malaise, weakness EENTM: no symptoms reported Respiratory: no symptoms reported, No cough, No dyspnea on exertion, No short of breath Cardiovascular: no symptoms reported, No chest pain, No palpitations Gastrointestinal: no symptoms reported, No abdominal pain, No constipation, No diarrhea, No nausea, No vomiting Genitourinary: frequency Musculoskeletal: no symptoms reported, No back pain, No joint pain, No muscle pain Skin: no symptoms reported Psychiatric/Neurological: Denies Headache Reviewed Test Results Reviewed Test Results Lab Laboratory Tests Test 11/11/17 03:05 11/11/17 05:04 11/11/17 07:08 11/12/17 03:50 Range/Units White Blood Count 7.7 8.6 4.3-11.0 10^3/uL Red Blood Count 5.53 5.26 4.35-5.85 10^6/uL Hemoglobin 16.1 15.4 13.3-17.7 G/DL Hematocrit 47 45 40-54 % Mean Corpuscular Volume 84 86 80-99 FL Mean Corpuscular Hemoglobin 29 29 25-34 PG Mean Corpuscular Hemoglobin Concent 35 34 32-36 G/DL Red Cell Distribution Width 20.5 H 20.2 H 10.0-14.5 % Platelet Count 120 L 112 L 130-400 10^3/uL Mean Platelet Volume 10.9 H 10.7 H 7.4-10.4 FL Neutrophils (%) (Auto) 78 H 69 42-75 % Lymphocytes (%) (Auto) 12 18 12-44 % Monocytes (%) (Auto) 11 14 H 0-12 % Eosinophils (%) (Auto) 0 0 0-10 % Basophils (%) (Auto) 0 0 0-10 % Neutrophils # (Auto) 5.9 5.9 1.8-7.8 X 10^3 Lymphocytes # (Auto) 0.9 L 1.5 1.0-4.0 X 10^3 Monocytes # (Auto) 0.8 1.2 H 0.0-1.0 X 10^3 Eosinophils # (Auto) 0.0 0.0 0.0-0.3 10^3/uL Basophils # (Auto) 0.0 0.0 0.0-0.1 10^3/uL Sodium Level 136 139 135-145 MMOL/L Potassium Level 4.5 4.0 3.6-5.0 MMOL/L Chloride Level 102 103 98-107 MMOL/L Carbon Dioxide Level 21 24 21-32 MMOL/L Anion Gap 13 12 5-14 MMOL/L Blood Urea Nitrogen 34 H 32 H 7-18 MG/DL Creatinine 1.06 1.31 H 0.60-1.30 MG/DL Estimat Glomerular Filtration Rate > 60 53 BUN/Creatinine Ratio 32 24 Glucose Level 127 H 166 H 70-105 MG/DL Lactic Acid Level 2.21 *H 1.80 0.50-2.00 MMOL/L Calcium Level 8.9 8.8 8.5-10.1 MG/DL Phosphorus Level 3.5 3.9 2.3-4.7 MG/DL Magnesium Level 1.9 1.8 1.8-2.4 MG/DL Total Bilirubin 4.8 H 0.1-1.0 MG/DL Aspartate Amino Transf (AST/SGOT) 44 H 5-34 U/L Alanine Aminotransferase (ALT/SGPT) 27 0-55 U/L Alkaline Phosphatase 106 40-136 U/L Total Protein 6.6 6.4-8.2 GM/DL Albumin 2.9 L 3.2-4.5 GM/DL Ammonia 64 H 11-32 UMOL/L Radiology NAME: MICHAELA ROPER [facility] REC#: [id number] PT STATUS: ADM IN : 1940 PHYSICIAN: GARRETT MACHADO DO ADMIT DATE: 11/10/17/ICU Draft Date of Exam:11/11/17 CHEST 1 VIEW, AP/PA ONLY INDICATION: Heart failure, compared 11/10. FINDINGS: Moderate to large left-sided pleural effusion, unchanged. Cardiomegaly, Unchanged. The right lung clear. The right lung vascularity not pathologically distended. Left lower lobe atelectatic likely owing to compression by the adjacent pleural fluid. IMPRESSION: No substantial change in cardiomegaly, partial left lung atelectasis and prominent left-sided pleural effusion. Dictated on workstation # [id number] Dict: 11/11/17 [id number] Trans: 11/11/17 [id number] [id number] Interpreted by: SELWYN CANDELARIA Electronically signed by: NAME: MICHAELA ROPER [facility] REC#: [id number] PT STATUS: REG ER : 1940 PHYSICIAN: LISA RED MD ADMIT DATE: 11/10/17/ER Signed Date of Exam: 11/10/17 CT CHEST WO INDICATION: Shortness of air and weakness. COMPARISON STUDY: Plain film of the chest from today. FINDINGS: There is a large nonloculated left pleural effusion. A small amount of ascites is present. There is a small right pleural effusion. Cardiomegaly is present with no pericardial effusion. Dense coronary artery calcifications are present. There is coronary artery bypass graft changes. A cardiac pacemaker is in place. Atelectasis is seen adjacent to the left pleural effusion. No infiltrates are present. No abnormal adenopathy is seen. IMPRESSION: 1. There is a large left pleural effusion and a small right pleural effusion and some ascites. 2. Cardiomegaly is present with coronary artery bypass graft changes and a cardiac pacemaker. 3. Dependent atelectasis is seen adjacent to the left pleural effusion. Dictated by: Dictated on workstation # [id number] Dict: 11/10/171945 Trans: 11/10/171953 Interpreted by: COURTNEY BONE MD Electronically signed by: COURTNEY BONE MD 11/10/171953 Physical Exam-([facility]) Physical Exam Vital Signs VS - Last 72 Hours, by Label 11/10/17 11/10/17 11/10/17 11/10/17 18:16 21:45 21:45 21:58 Temp 96.8 96.1 Pulse 80 80 80 80 Resp 20 25 20 B/P (MAP) 118/89 (99) 125/97 (106) 121/80 (94) Pulse Ox 98 98 98 O2 Delivery Room Air Room Air Room Air 11/10/17 11/10/17 11/10/17 11/10/17 22:00 22:00 22:00 22:15 Temp 95.7 Pulse 80 80 80 Resp 16 15 12 B/P (MAP) 118/88 (94) 118/85 (96) 119/84 (96) Pulse Ox 97 98 98 98 O2 Delivery Room Air Room Air Room Air Room Air 11/10/17 11/10/17 11/10/17 11/10/17 22:30 22:45 23:00 23:15 Pulse 80 80 80 80 Resp 15 15 12 17 B/P (MAP) 115/87 (96) 119/83 (95) 114/73 (87) 122/84 (97) Pulse Ox 98 98 97 98 O2 Delivery Room Air Room Air Room Air Room Air 11/10/17 11/11/17 11/11/17 11/11/17 23:17 00:00 00:00 00:21 Pulse 80 80 80 Resp 13 B/P (MAP) 128/85 (99) Pulse Ox 97 97 97 O2 Delivery Room Air Room Air FiO2 21 11/11/17 11/11/17 11/11/17 11/11/17 01:00 01:00 01:10 02:00 Temp 97.1 Pulse 86 86 80 Resp 23 13 B/P (MAP) 124/79 (94) 109/69 (82) Pulse Ox 97 97 O2 Delivery Room Air Room Air 11/11/17 11/11/17 11/11/17 11/11/17 03:00 03:51 04:00 04:06 Temp 98.9 Pulse 80 80 Resp 23 13 B/P (MAP) 98/74 (82) 99/73 (82) Pulse Ox 97 97 97 O2 Delivery Room Air Room Air Room Air 11/11/17 11/11/17 11/11/17 11/11/17 05:00 06:00 07:00 07:00 Pulse 80 80 80 80 Resp 12 12 16 B/P (MAP) 97/66 (76) 105/65 (78) 113/73 (86) Pulse Ox 95 96 96 O2 Delivery Room Air Room Air Room Air 11/11/17 11/11/17 11/11/17 11/11/17 08:00 08:00 09:00 09:48 Temp 96.9 Pulse 80 80 Resp 18 16 B/P (MAP) 108/72 (84) 104/75 (85) Pulse Ox 95 98 99 O2 Delivery Room Air Room Air Room Air Room Air 11/11/17 11/11/17 11/11/17 11/11/17 10:00 11:00 11:53 11:53 Temp 97.0 Pulse 80 80 Resp 15 12 B/P (MAP) 110/73 (85) 104/66 (79) Pulse Ox 99 97 O2 Delivery Room Air Room Air Room Air 11/11/17 11/11/17 11/11/17 11/11/17 12:00 13:00 13:00 14:00 Pulse 80 80 80 80 Resp 19 13 12 B/P (MAP) 103/69 (80) 101/69 (80) 106/73 (84) Pulse Ox 94 96 97 O2 Delivery Room Air Room Air Room Air 11/11/17 11/11/17 11/11/17 11/11/17 15:00 16:00 16:00 16:57 Pulse 80 80 Resp 12 14 B/P (MAP) 95/66 (76) 98/63 (75) Pulse Ox 91 97 98 O2 Delivery Room Air Room Air Room Air Room Air 11/11/17 11/11/17 11/11/17 11/11/17 17:00 17:45 18:00 19:00 Temp 99.0 Pulse 80 80 80 80 Resp 12 12 13 12 B/P (MAP) 99/66 (77) 93/56 (68) 92/57 (69) 91/59 (70) Pulse Ox 100 97 99 99 O2 Delivery Room Air Room Air Room Air Room Air 11/11/17 11/11/17 11/11/17 11/11/17 19:00 20:00 20:00 20:00 Temp 97.2 Pulse 80 80 Resp 12 B/P (MAP) 82/62 (69) Pulse Ox 100 96 O2 Delivery Room Air Room Air 11/11/17 11/11/17 11/11/17 11/11/17 20:03 21:00 22:00 23:00 Pulse 81 80 80 Resp 17 18 12 B/P (MAP) 93/59 (70) 103/69 (80) 85/57 (66) Pulse Ox 99 98 99 99 O2 Delivery Room Air Room Air Room Air Room Air 11/12/17 11/12/17 11/12/17 11/12/17 00:00 00:00 00:00 00:00 Temp 97.5 97.6 Pulse 80 Resp 12 B/P (MAP) 92/64 (73) Pulse Ox 91 94 O2 Delivery Room Air Room Air 11/12/17 11/12/17 11/12/17 11/12/17 01:00 01:00 02:00 03:00 Pulse 80 80 80 80 Resp 12 15 12 B/P (MAP) 91/59 (70) 96/69 (78) 93/70 (78) Pulse Ox 97 97 94 O2 Delivery Room Air Room Air Room Air 11/12/17 11/12/17 11/12/17 11/12/17 03:28 04:00 04:00 04:00 Temp 97.2 Pulse 80 Resp 14 B/P (MAP) 99/65 (76) Pulse Ox 99 98 93 O2 Delivery Room Air Room Air Room Air 11/12/17 11/12/17 11/12/17 11/12/17 05:00 06:00 07:00 07:00 Pulse 80 80 80 80 Resp 10 11 14 B/P (MAP) 98/63 (75) 96/60 (72) 94/65 (75) Pulse Ox 92 96 97 O2 Delivery Room Air Room Air 11/12/17 11/12/17 11/12/17 11/12/17 08:00 08:00 08:00 08:58 Temp 97.8 Pulse 80 Resp 17 B/P (MAP) 95/64 (74) Pulse Ox 97 97 O2 Delivery Room Air Room Air Room Air 11/12/17 11/12/17 11/12/17 11/12/17 09:00 10:00 10:39 12:00 Temp 98.4 97.7 Pulse 80 80 81 80 Resp 23 12 18 20 B/P (MAP) 99/74 (82) 95/57 (70) 107/56 (73) 111/69 (83) Pulse Ox 97 98 99 99 O2 Delivery Room Air Room Air Room Air Room Air 11/12/17 11/12/17 11/12/17 11/12/17 13:00 16:06 16:55 19:00 Temp 98.1 Pulse 81 79 81 Resp 16 B/P (MAP) 102/63 (76) Pulse Ox 98 99 O2 Delivery Room Air Room Air Capillary Refill : Less Than 3 Seconds General Appearance: no apparent distress, other (pleasantly confused) HEENT: PERRL/EOMI Neck: full range of motion, supple Respiratory: chest non-tender, lungs clear, no respiratory distress, no accessory muscle use Cardiovascular: regular rate, rhythm, systolic murmur, irregularly irregular Gastrointestinal: normal bowel sounds, non tender, soft, No rebound, No tenderness, No mass Extremities: non-tender, no calf tenderness, pedal edema, other (hemociderin deposition) 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, no motor/sensory deficits, alert, normal mood/affect Skin: warm/dry, cool Lymphatic: no adenopathy Assessment/Plan Assessment/Plan Admission Status: Inpatient Order (span 2 midnights) Reason for Inpatient Admission: Requires IV medications including antiboitics (1) Altered mental status Status: Acute Assessment & Plan: - Infection vs hepatic - Ammonia level elevated - Improving but not at baseline this AM Qualifiers: Qualified Codes: R41.0 - Disorientation, unspecified (2) Increased ammonia level Status: Acute Assessment & Plan: - Discussed with Dr Hernandez and will start lactulose (3) UTI (urinary tract infection) Status: Acute Assessment & Plan: - Start antibiotics Qualifiers: Qualified Codes: N30.01 - Acute cystitis with hematuria (4) Pleural effusion Status: Acute (5) Chronic atrial fibrillation Status: Chronic Assessment & Plan: - Continue oral anticoagulation (6) Elevated liver enzymes Status: Acute Assessment & Plan: - Abdominal US pending (7) Acute on chronic combined systolic and diastolic CHF (congestive heart failure) Status: Acute Assessment & Plan: - Cardiology consulted - IV lasix given this AM (8) LIMITATION OF ACTIVITIES DUE TO DISABILITY Status: Acute Assessment & Plan: - PT/OT consulted (9) DVT prophylaxis Status: Acute Assessment & Plan: - Oral anticoagulation Clinical Quality Measures DVT/VTE Risk/Contraindication: Risk Factor Score Per Nursin RFS Level Per Nursing on Admit: 4+=Very High Copy Copies To 1: Tacho LO HOLLY R MD Nov 11, 2017 13:33
--- NOTE | 2017-11-11 13:49 | Speech Therapy Progress Note ---
Therapy Progress Note Speech pathology consult (dysphagia) received at 13:25 and chart extensively reviewed. As this clinician will be out of the office at 14:00, she contacted the [employer] to notify of availability of dysphagia evaluation and information of evaluation to be completed on 11/12/2017 at 8am. The RN stated she would update the ordering physician. ROSA ROSARIO Nov 11, 2017 13:49
--- NOTE | 2017-11-11 17:21 | Consultation-Cardiology ---
HPI-Cardiology Cardiology Consultation: Date of Consultation 11/11/17 Time Seen by Provider: 09:20 Date of Admission Attending Physician Ana Pryor DO Admitting Physician Nidhi Roper DO Consulting Physician JESICA PATRICK MD, MA, FACP, FACC, FSCAI, CCDS HPI: Chief Complaint: Reason for consultation: Pleural effusion, chronic systolic CHF HPI Mr. Roper is a 77 year old male admitted from the ED to ICU 11 with increasing confusion and generalized weakness. He was found to have a large left pleural effusion on CXR. He reports increasing weakness over the last 3 weeks. He states approx 3 weeks ago he tripped and fell at home. He reports he hit his right leg and it was bruised, but this has improved. He reports increasing shortness of breath over the last 3 weeks as well. He has chronic bilat LE edema, but feels this has also been increasingly worse over the last several weeks. He denies any CP, syncope or near syncope. No c/o n/v/d. No c/ o fever or chills. He reports he continues to feel weak this morning. Review of Systems-Cardiology Review of Systems Constitutional: No chills, No fever, malaise Eyes: No vision change Ears/Nose/Throat: No recent hearing loss Respiratory: As described under HPI Cardiovascular: As described under HPI Gastrointestinal: No diarrhea, No nausea, No vomiting Genitourinary: No dysuria, No hematuria Musculoskeletal: joint pain (chronic) Skin: other (abrasion to right crouch and knee) Psychiatric/Neurological: No anxiety, No depression, No syncope Hematologic: No bleeding abnormalities KCP-Pdyudo-Qabjfx Hx Patient Social History Alcohol Use: Denies Use Recreational Drug Use: No Smoking Status: Former Smoker Recent Foreign Travel: No Recent Infectious Disease Expo: No Physical Abuse Screen: No Sexual Abuse: No Immunizations Up To Date Tetanus Booster (TDap): Unknown Date of Pneumonia Vaccine: Jun 02, 2017 Date of Influenza Vaccine: Jun 05, 2017 Past Medical History PMH As described under Assessment. Family Medical History Family Medical History: No fam history of early CAD Allergies and Home Medications Allergies Coded Allergies: No Known Drug Allergies (Unverified , 04/17/15) Home Medications Allopurinol 100 Mg Tablet, 100 MG PO DAILY, (Reported) Amiodarone HCl 200 Mg Tablet, 200 MG PO DAILY, (Reported) Aspirin 81 Mg Tablet., 81 MG PO DAILY, (Reported) Furosemide 40 Mg Tablet, 80 MG PO DAILY, (Reported) LAST FILLED #60 08-27-17 TAKES 2 (40MG) TABLETS Garlic 1,000 Mg Capsule, 1,000 MG PO DAILY, (Reported) Glyburide 5 Mg Tablet, 2.5 MG PO DAILY, (Reported) LAST FILLED #45 05-27-17 TAKES 1/2 (5MG) TABLET Lisinopril 10 Mg Tablet, 10 MG PO DAILY, (Reported) Metolazone 5 Mg Tablet, 5 MG PO DAILY, (Reported) LAST FILLED #31 AUGUST 2017 Metoprolol Succinate 25 Mg Tab.er.24h, 25 MG PO DAILY, (Reported) Multivitamin 1 Each Tablet, 1 TAB PO DAILY, (Reported) Potassium Chloride 10 Meq Tablet.er, 10 MEQ PO DAILY, (Reported) Patient Home Medication List Home Medication List Reviewed: Yes Physical Exam-Cardiology Physical Exam Vital Signs/I&O Vital Sign - Last 12Hours 11/11/17 11/11/17 11/11/17 11/11/17 06:00 07:00 07:00 08:00 Temp 96.9 Pulse 80 80 80 80 Resp 12 16 18 B/P (MAP) 105/65 (78) 113/73 (86) 108/72 (84) Pulse Ox 96 96 95 O2 Delivery Room Air Room Air Room Air 11/11/17 11/11/17 11/11/17 11/11/17 08:00 09:00 09:48 10:00 Pulse 80 80 Resp 16 15 B/P (MAP) 104/75 (85) 110/73 (85) Pulse Ox 98 99 99 O2 Delivery Room Air Room Air Room Air Room Air 11/11/17 11/11/17 11/11/17 11/11/17 11:00 11:53 11:53 12:00 Temp 97.0 Pulse 80 80 Resp 12 19 B/P (MAP) 104/66 (79) 103/69 (80) Pulse Ox 97 94 O2 Delivery Room Air Room Air Room Air 11/11/17 11/11/17 11/11/17 11/11/17 13:00 13:00 14:00 16:00 Pulse 80 80 80 Resp 13 12 B/P (MAP) 101/69 (80) 106/73 (84) Pulse Ox 96 97 O2 Delivery Room Air Room Air Room Air 11/11/17 16:57 Pulse Ox 98 O2 Delivery Room Air Intake and Output 11/11/17 00:00 Intake Total 500 ml Output Total 100 ml Balance 400 ml Capillary Refill : Less Than 3 Seconds Constitutional: AAO x 3 HEENT: hard of hearing, oral hygience is good Neck: carotid pulses are 2 + bilaterally Respiratory: other (diminished left lower lobe) Cardiovascular: regular rate-rhythm (paced), S1 and S2, systolic murmur Gastrointestinal: soft, audible bowel sounds Rectal: deferred Genital/Rectal: other (urinary catheter to DD with dark, louis urine) Extremities: significant edema (2 (+) bilat LE edema, mild upper extremity edema) Neurologic/Psychiatric: grossly intact Skin: warm/dry, jaundice, No ulcerations, other (scabbing to the right knee; right crouch with an abrasion with serous drainage) Lymphatic: no adenopathy (neck, axilla or groin) Data Review Labs Laboratory Tests 11/10/17 18:14: Glucometer 153H 11/10/17 19:00: Blood Gas Puncture Site LEFT BRACHIAL, Blood Gas Patient Temperature 94.5, Arterial Blood pH 7.47H, Arterial Blood Partial Pressure CO2 30L, Arterial Blood Partial Pressure O2 80, Arterial Blood HCO3 22L, Arterial Blood Total CO2 23.4, Arterial Blood Oxygen Saturation 98, Arterial Blood Base Excess -1.2, Oli Test NA, Blood Gas Ventilator Setting NO, Blood Gas Inspired Oxygen ROOM AIR 11/10/17 19:13: White Blood Count 8.8, Red Blood Count 6.15H, Hemoglobin 17.6, Hematocrit 52, Mean Corpuscular Volume 84, Mean Corpuscular Hemoglobin 29, Mean Corpuscular Hemoglobin Concent 34, Red Cell Distribution Width 20.8H, Platelet Count 146, Mean Platelet Volume 11.2H, Neutrophils (%) (Auto) 80H, Lymphocytes (%) (Auto) 13, Monocytes (%) (Auto) 7, Eosinophils (%) (Auto) 0, Basophils (%) (Auto) 0, Neutrophils # (Auto) 7.0, Lymphocytes # (Auto) 1.2, Monocytes # (Auto) 0.6, Eosinophils # (Auto) 0.0, Basophils # (Auto) 0.0, Prothrombin Time 19.8H, INR Comment 1.7H, Activated Partial Thromboplast Time 33, Sodium Level 137, Potassium Level 4.3, Chloride Level 101, Carbon Dioxide Level 23, Anion Gap 13, Blood Urea Nitrogen 35H, Creatinine 1.44H, Estimat Glomerular Filtration Rate 48 , BUN/Creatinine Ratio 24, Glucose Level 153H, Lactic Acid Level 3.63*H, Calcium Level 9.9, Magnesium Level 2.0, Total Bilirubin 5.1H, Aspartate Amino Transf (AST/SGOT) 48H, Alanine Aminotransferase (ALT/SGPT) 34, Alkaline Phosphatase 145H, Troponin I < 0.30, C-Reactive Protein High Sensitivity 1.88H, B-Type Natriuretic Peptide 1594.0H, Total Protein 8.0, Albumin 3.5, Thyroid Stimulating Hormone (TSH) 3.53 11/10/17 20:20: Urine Color AMBERH, Urine Clarity CLEAR, Urine pH 5, Urine Specific [place] 1.025H, Urine Protein 3+H, Urine Glucose (UA) 1+H, Urine Ketones NEGATIVE, Urine Nitrite POSITIVEH, Urine Bilirubin 2+H, Urine Urobilinogen 12H, Urine Leukocyte Esterase 1+H, Urine RBC (Auto) 3+H, Urine RBC 5-10H, Urine WBC 0-2, Urine Crystals PRESENTH, Urine Amorphous Sediment FEW HILDA URATESH, Urine Bacteria NONE, Urine Casts NONE, Urine Mucus NEGATIVE, Urine Culture Indicated YES 11/10/17 21:12: Lactic Acid Level 2.55*H 11/11/17 03:05: Lactic Acid Level 2.21*H, White Blood Count 7.7, Red Blood Count 5.53, Hemoglobin 16.1, Hematocrit 47, Mean Corpuscular Volume 84, Mean Corpuscular Hemoglobin 29, Mean Corpuscular Hemoglobin Concent 35, Red Cell Distribution Width 20.5H, Platelet Count 120L, Mean Platelet Volume 10.9H, Neutrophils (%) ( Auto) 78H, Lymphocytes (%) (Auto) 12, Monocytes (%) (Auto) 11, Eosinophils (%) ( Auto) 0, Basophils (%) (Auto) 0, Neutrophils # (Auto) 5.9, Lymphocytes # (Auto) 0.9L, Monocytes # (Auto) 0.8, Eosinophils # (Auto) 0.0, Basophils # (Auto) 0.0, Sodium Level 136, Potassium Level 4.5, Chloride Level 102, Carbon Dioxide Level 21, Anion Gap 13, Blood Urea Nitrogen 34H, Creatinine 1.06, Estimat Glomerular Filtration Rate > 60, BUN/Creatinine Ratio 32, Glucose Level 127H, Calcium Level 8.9, Phosphorus Level 3.5, Magnesium Level 1.9, Total Bilirubin 4.8H, Aspartate Amino Transf (AST/SGOT) 44H, Alanine Aminotransferase (ALT/SGPT) 27, Alkaline Phosphatase 106, Total Protein 6.6, Albumin 2.9L 11/11/17 05:04: Lactic Acid Level 1.80 11/11/17 07:08: Ammonia 64H Microbiology 11/10/17 Blood Culture - Preliminary, Resulted No growth 11/10/17 Urine Culture - Preliminary, Resulted NO GROWTH Laboratory Tests 11/10/17 19:13 11/11/17 03:05 A/P-Cardiology Assessment/Admission Diagnosis Dyspnea likely multifactorial r/t large left pleural effusion and acute on chronic systolic CHF Large left pleural effusion seen on CT of the chest of 11-10-17 and CXR of - management per pulmonary services Weakness/confusion of new onset - confusion improved, but remains weak Elevated bilirubin, indicative of jaundice of unknown etiology Elevated AST and bilirubin level - poss d/t hepatobiliary congestion Ischemic Cardiomyopathy. LVEF 35-40%, based on TTE and CROW of 04/18/15 and . LVEF 22% on MPI of 05/19/15. LVEF 33% on MUGA of 05/24/15. LVEF 20-25% on echo of 09/06/17 (that also showed grade 3 clemente dysfunction, mod to sev dilated LA , mod dilate RA, mod MR, mod TR) Hospitalization in Oct 2016 with sepsis and influenza A and multi-organ involvement, including hepatic insufficiency - resolved Acut on Chronic systolic CHF Persistent a fib with poor vent rate control, treated with AVN ablation in mid Sep 2015 at [facility] by Dr Hernández. S/P ablation for atrial flutter by Dr. Hernández at [facility] by Dr. Hernández on 06/09/15 S/p single ch ICD implanted on 02/07/16, upgraded to [employer] by Dr Hernández in Sep 2015 , functioning normally on interrogation of June 2017 Episode of wide complex tachycardia during hospitalization of January 20, 2016 OAC with Xarelto CAD with history of CABGx5 at the [facility] February 2012. Details of CABG unavailable. 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
[2017-11-12] VITALS (16 sets, daily range): BP systolic 91–124; BP diastolic 56–79
[2017-11-12] MEDS: NS IV 1000 ML 1,000 ML IV SCH (02:12)
[2017-11-12] MEDS: PIPERACILLIN SODIUM/TAZOBACTAM 4.5 GM in NS (IVPB) 100 ML IV SCH ×3 (02:12→17:03)
[2017-11-12] MEDS: RT-ALBUTEROL/IPRATROPIUM 3 ML (DUONEB) VIAL INH SCH ×4 (03:28→22:45)
[2017-11-12 04:16] LABS: BASOPHILS % (AUTO) 0 % (0-10); EOSINOPHILS % (AUTO) 0 % (0-10); HEMATOCRIT 45 % (40-54); HEMOGLOBIN 15.4 G/DL (13.3-17.7); LYMPHOCYTES # (AUTO) 1.5 X 10^3 (1.0-4.0); LYMPHOCYTES % (AUTO) 18 % (12-44); MEAN CORPUSCULAR HEMOGLOBIN 29 PG (25-34); MEAN CORPUSCULAR HGB CONC 34 G/DL (32-36); MEAN CORPUSCULAR VOLUME 86 FL (80-99); MEAN PLATELET VOLUME 10.7 FL (7.4-10.4); MONOCYTES # (AUTO) 1.2 X 10^3 (0.0-1.0); MONOCYTES % (AUTO) 14 % (0-12); NEUTROPHILS # (AUTO) 5.9 X 10^3 (1.8-7.8); NEUTROPHILS % (AUTO) 69 % (42-75); PLATELET COUNT 112 10^3/uL (130-400); RED BLOOD COUNT 5.26 10^6/uL (4.35-5.85); RED CELL DISTRIBUTION WIDTH 20.2 % (10.0-14.5); WHITE BLOOD COUNT 8.6 10^3/uL (4.3-11.0)
[2017-11-12 04:34] LABS: CALCIUM 8.8 MG/DL (8.5-10.1); CREATININE SERUM 1.31 MG/DL (0.60-1.30); MAGNESIUM 1.8 MG/DL (1.8-2.4); PHOSPHORUS 3.9 MG/DL (2.3-4.7)
[2017-11-12] MEDS ORDERED: KCL 20 MEQ TAB (K-DUR) PO SCH (06:00)
[2017-11-12] MEDS ORDERED: POTASSIUM CL 10MEQ/50ML IVPB 50 ML IV SCH (06:00)
[2017-11-12] MEDS ORDERED: MAGNESIUM 1 GM/100 ML IVPB 100 ML IV SCH (06:00)
--- NOTE | 2017-11-12 08:11 | Speech Therapy Progress Note ---
Therapy Progress Note Bedside Swallow Screen completed by RN. The patient did not demonstrate any difficulty and an oral diet was initiated. Speech pathology received cancelled orders this AM. Please reconsult speech pathology if warranted. Thank you. ROSA ROSARIO Nov 12, 2017 08:11
--- NOTE | 2017-11-12 08:11 | Diagnostic Imaging Report ---
Indication: Heart failure with elevated bilirubin lactic acidosis. Comparison: 11/11/2017. Findings: Stable moderate to large left pleural effusion. Left basilar confluent pulmonary opacities are stable. Right lung remains clear. No pneumothorax. Stable cardiomegaly with left pectoral transvenous dual-chamber pacemaker/ICD. Impression: 1. No interval change in large left pleural effusion and associated left basilar pulmonary opacities. Dictated by: Dictated on workstation # [id number]
--- NOTE | 2017-11-12 08:19 | Pulmonary Progress Note ---
Subjective Time Seen by Provider: 08:26 Subjective/Events-last exam PT is feeling improved. He is on RA and wants to order breakfast. Focused Exam Evaluation Lactate Level Laboratory Tests 11/10/17 21:12: Lactic Acid Level 2.55*H 11/11/17 03:05: Lactic Acid Level 2.21*H 11/11/17 05:04: Lactic Acid Level 1.80 Exam Exam Vital Signs Date Time Temp Pulse Resp B/P (MAP) Pulse Ox O2 Delivery O2 Flow Rate FiO2 11/12/17 06:00 80 11 96/60 (72) 96 11/12/17 05:00 80 10 98/63 (75) 92 Room Air 11/12/17 04:00 97.2 11/12/17 04:00 93 Room Air 11/12/17 04:00 80 14 99/65 (76) 98 Room Air 11/12/17 03:28 99 Room Air 11/12/17 03:00 80 12 93/70 (78) 94 Room Air 11/12/17 02:00 80 15 96/69 (78) 97 Room Air 11/12/17 01:00 80 12 91/59 (70) 97 Room Air 11/12/17 01:00 80 11/12/17 00:00 94 Room Air 11/12/17 00:00 80 12 92/64 (73) 91 Room Air 11/12/17 00:00 97.6 11/12/17 00:00 97.5 11/11/17 23:00 80 12 85/57 (66) 99 Room Air 11/11/17 22:00 80 18 103/69 (80) 99 Room Air 11/11/17 21:00 81 17 93/59 (70) 98 Room Air 11/11/17 20:03 99 Room Air 11/11/17 20:00 96 Room Air 11/11/17 20:00 97.2 11/11/17 20:00 80 12 82/62 (69) 100 Room Air 11/11/17 19:00 80 11/11/17 19:00 80 12 91/59 (70) 99 Room Air 11/11/17 18:00 80 13 92/57 (69) 99 Room Air 11/11/17 17:45 99.0 80 12 93/56 (68) 97 Room Air 11/11/17 17:00 80 12 99/66 (77) 100 Room Air 11/11/17 16:57 98 Room Air 11/11/17 16:00 Room Air 11/11/17 16:00 80 14 98/63 (75) 97 Room Air 11/11/17 15:00 80 12 95/66 (76) 91 Room Air 11/11/17 14:00 80 12 106/73 (84) 97 Room Air 11/11/17 13:00 80 11/11/17 13:00 80 13 101/69 (80) 96 Room Air 11/11/17 12:00 80 19 103/69 (80) 94 Room Air 11/11/17 11:53 Room Air 11/11/17 11:53 97.0 11/11/17 11:00 80 12 104/66 (79) 97 Room Air 11/11/17 10:00 80 15 110/73 (85) 99 Room Air 11/11/17 09:48 99 Room Air 11/11/17 09:00 80 16 104/75 (85) 98 Room Air I & O 11/12/17 07:00 Intake Total 1840 ml Output Total 2350 ml Balance -510 ml General Appearance: Mild Distress, Other (ill appearing) HEENT: PERRL/EOMI, Pharynx Normal Neck: Non Tender, Supple Respiratory: Decreased Breath Sounds (Left > RIght ) Cardiovascular: Regular Rate, Rhythm, No Murmur Capillary Refill: Less Than 3 Seconds Gastrointestinal: normal bowel sounds, soft, No guarding, No rebound, hepatomegaly Extremity: No Calf Tenderness, Pedal Edema (portable is edema to the knees bilaterally), Pelvis Stable Neurologic/Psychiatric: Alert, Oriented x3, Other (awake and answers yes or no questions. Confused. Does follow commands. Disoriented to time and place but oriented to person.) Skin: Normal Color, Warm/Dry Lymphatic: No Adenopathy Results Lab Laboratory Tests 11/10/17 19:13 11/11/17 03:05 11/12/17 03:50 Assessment/Plan Assessment/Plan UTI with severe sepsis SIRS criteria (RR, Hypothermia) -Continue Zosyn -Alanis culture pending Left >Right pleural effusion probably from ascites -Pt is on Eliquis -I discussed with Dr. Roper will hold off on thoracentesis pt is only on RA -D/C IVF and continue LAsix Dementia with worsening confusion -high ammonia level - start lactulose -treat UTI currently on Zosyn Cardiomyopathy with EF of 20% - Lasix is ordered BID Weakness/debility -PT/OT Chronically elevated Liver enzymes with ascites -Last hep panel was negative Hx of Afib -PT is on Eliquis at home transfer pt to 4th floor. 233 Critical Care: Critically Ill Patient GARRETT MACHADO DO Nov 12, 2017 08:19
[2017-11-12] MEDS: KCL 20 MEQ TAB (K-DUR) PO SCH ×2 (08:33→17:04)
[2017-11-12] MEDS: LACTULOSE SYRUP 10GM/15ML (ENULOSE) 30ML UDC PO SCH ×2 (08:33→21:51)
[2017-11-12] MEDS: FUROSEMIDE 40 MG/4 ML INJ (LASIX) IV SCH ×2 (08:33→21:49)
[2017-11-12] MEDS: ASPIRIN 81 MG CHEW (CHILDREN'S ASA) PO SCH (08:33)
[2017-11-12] MEDS: APIXABAN 2.5 MG (ELIQUIS) TABLET PO SCH ×2 (08:33→21:49)
--- NOTE | 2017-11-12 11:41 | Progress Note-Cardiology ---
Cardiology SOAP Progress Note Subjective: Transferred to [facility] this morning. Sitting up in a chair at the bedside. Spouse and visitors x 2 at the bedside. He is much more alert and talkative today. He reports he feels his breathing is back to his usual baseline. No c/o CP, palpitations, syncope or near syncope. Objective: I&O/Vital Signs Vital Sign - Last 12Hours 11/12/17 11/12/17 11/12/17 11/12/17 03:00 03:28 04:00 04:00 Pulse 80 80 Resp 12 14 B/P (MAP) 93/70 (78) 99/65 (76) Pulse Ox 94 99 98 93 O2 Delivery Room Air Room Air Room Air Room Air 11/12/17 11/12/17 11/12/17 11/12/17 04:00 05:00 06:00 07:00 Temp 97.2 Pulse 80 80 80 Resp 10 11 14 B/P (MAP) 98/63 (75) 96/60 (72) 94/65 (75) Pulse Ox 92 96 97 O2 Delivery Room Air Room Air 11/12/17 11/12/17 11/12/17 11/12/17 07:00 08:00 08:00 08:00 Temp 97.8 Pulse 80 80 Resp 17 B/P (MAP) 95/64 (74) Pulse Ox 97 O2 Delivery Room Air Room Air 11/12/17 11/12/17 11/12/17 11/12/17 08:58 09:00 10:00 10:39 Temp 98.4 Pulse 80 80 81 Resp 23 12 18 B/P (MAP) 99/74 (82) 95/57 (70) 107/56 (73) Pulse Ox 97 97 98 99 O2 Delivery Room Air Room Air Room Air Room Air 11/12/17 12:00 Temp 97.7 Pulse 80 Resp 20 B/P (MAP) 111/69 (83) Pulse Ox 99 O2 Delivery Room Air Intake and Output 11/12/17 00:00 Intake Total 540 ml Output Total 1550 ml Balance -1010 ml Weight (Pounds): 182 Weight (Ounces): 8.0 Weight (Calculated Kilograms): 82.417247 Constitutional: AAO x 3 Respiratory: other (diminished left lower lobe) Cardiovascular: regular rate-rhythm (paced), S1 and S2, systolic murmur Gastrointestional: soft, audible bowel sounds Extremities: significant edema (mod bilat LE edema, mild upper extremity edema) Neurologic/Psychiatric: grossly intact Skin: warm/dry, jaundice, No ulcerations, other (scabbing to the right knee; right crouch with an abrasion with serous drainage) Results/Procedures: Labs Laboratory Tests 11/12/17 03:50: White Blood Count 8.6, Red Blood Count 5.26, Hemoglobin 15.4, Hematocrit 45, Mean Corpuscular Volume 86, Mean Corpuscular Hemoglobin 29, Mean Corpuscular Hemoglobin Concent 34, Red Cell Distribution Width 20.2H, Platelet Count 112L, Mean Platelet Volume 10.7H, Neutrophils (%) (Auto) 69, Lymphocytes (%) (Auto) 18 , Monocytes (%) (Auto) 14H, Eosinophils (%) (Auto) 0, Basophils (%) (Auto) 0, Neutrophils # (Auto) 5.9, Lymphocytes # (Auto) 1.5, Monocytes # (Auto) 1.2H, Eosinophils # (Auto) 0.0, Basophils # (Auto) 0.0, Sodium Level 139, Potassium Level 4.0, Chloride Level 103, Carbon Dioxide Level 24, Anion Gap 12, Blood Urea Nitrogen 32H, Creatinine 1.31H, Estimat Glomerular Filtration Rate 53, BUN/ Creatinine Ratio 24, Glucose Level 166H, Calcium Level 8.8, Phosphorus Level 3.9 , Magnesium Level 1.8 Microbiology 11/10/17 Blood Culture - Preliminary, Resulted No growth 11/10/17 MRSA Screen - Final, Complete MRSA not isolated 11/10/17 Urine Culture - Final, Complete NO GROWTH Procedures NAME: MICHAELA ROPER [facility] REC#: [id number] PT STATUS: ADM IN : 1940 PHYSICIAN: GARRETT SHETTY DO ADMIT DATE: 11/10/17/ICU Signed Date of Exam: 11/12/17 CHEST 1 VIEW, AP/PA ONLY Indication: Heart failure with elevated bilirubin lactic acidosis. Comparison: 11/11/2017. Findings: Stable moderate to large left pleural effusion. Left basilar confluent pulmonary opacities are stable. Right lung remains clear. No pneumothorax. Stable cardiomegaly with left pectoral transvenous dual-chamber pacemaker/ICD. Impression: 1. No interval change in large left pleural effusion and associated left basilar pulmonary opacities. Dictated by: Dictated on workstation # [id number] Dict: 11/12/17 0758 Trans: 11/12/17 1009 Interpreted by: EVER THAKKAR MD Electronically signed by: EVER THAKKAR MD 11/12/17 1009 A/P: Assessment: Shortness of breath that is likely multifactorial (see below) Acute on chronic systolic CHF Large left pleural effusion seen on CT of the chest of 11-10-17 and CXR of - management per pulmonary services Weakness/confusion of new onset - confusion improved, but remains weak Elevated bilirubin, indicative of jaundice of unknown etiology Echo of 11/11/17: LVEF 15-20%, biatrial enlargement, mod MR, mild to mod TR, PASP approx 30 mmHg, IVC dilatation UTI - management per medical services Ischemic Cardiomyopathy. LVEF 35-40%, based on TTE and CROW of 04/18/15 and . LVEF 22% on MPI of 05/19/15. LVEF 33% on MUGA of 05/24/15. LVEF 20-25% on echo of 09/06/17. LVEF 15-20% on echo of 11/11/17 Hospitalization in Oct 2016 with sepsis and influenza A and multi-organ involvement, including hepatic insufficiency - resolved Persistent a fib with poor vent rate control, treated with AVN ablation in mid Sep 2015 at [facility] by Dr Hernández. S/P ablation for atrial flutter by Dr. Hernández at [facility] by Dr. Hernández on 06/09/15 S/p single ch ICD implanted on 02/07/16, upgraded to ADMISSION DISCHARGE RN-D by Dr Hernández in Sep 2015 , functioning normally on interrogation of June 2017 Episode of wide complex tachycardia during hospitalization of January 20, 2016 OAC with Xarelto CAD with history of CABGx5 at [facility] 2012. Details of CABG unavailable. 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 Hernandez/Dr. Shetty * Eval for jaundice (Med Svce) * Follow closely * UTI - management per medical services Physician Assessment Physician Assessment Feels somewhat better. Still short of breath and weak. No cp or palp or syncope Lungs: dec/absent bs on the L base and mid zone (dullness to percussion) Cor: irreg with 2/6 HSM at the apex Ext: 2-3+ bilateral leg edema A&R * As documented in our note above that I updated (italics) and as noted below * Very complex case of very advanced cm and refractory heart failure, in addition to other multisystem comorbidities * terminal operations manager prognosis guarded * If thoracentesis is to be done, we will hold off on Eliquis for 48 hours prior and 24 hours after * Monitor labs EDEL CHUN FURNITURE INSTALLER Nov 12, 2017 11:41 JESICA PATRICK MD FACP [facility] Nov 12, 2017 14:33
--- NOTE | 2017-11-12 11:55 | Physical Therapy Evaluation ---
PT Evaluation-General Medical Diagnosis Admission Date Nov 10, 2017 at 20:45 Medical Diagnosis: acute heart failure Onset Date: Nov 10, 2017 Therapy Diagnosis Therapy Diagnosis: generalized weakness/debility Height/Weight Height (Feet): 6 Height (Inches): 0.00 Weight (Pounds): 182 Weight (Ounces): 8.0 Precautions Precautions/Isolations: Fall Prevention, Standard Precautions Weight Bear Status Right Lower Extremity: Right Weight Bearing/Tolerated Left Lower Extremity: Left Weight Bearing/Tolerated Referral Physician: Carmen Reason for Referral: Evaluation/Treatment Medical History Pertinent Medical History: Atrial Fib, CABG, CAD, DM, Dementia, Heart Failure, HTN Additional Medical History EF 20% Current History ED with increase confusion/weakness, pleural effusion Reviewed History: Yes Social History Home: Single Level Current Living Status: Spouse Prior/Core FIM Prior Level of Function Functional [place] Measure 0=Not Assessed/NA 4=Minimal Assistance 1=Total Assistance 5=Supervision or Setup 2=Maximal Assistance 6=Modified [place] 3=Moderate Assistance 7=Complete [place] Bed Mobility: 6 Transfers (B,C,W/C) (FIM): 6 Gait: 6 uses cane or FWW PT Evaluation-Current Subjective Patient agrees to PT. He does know this PT x several years. Pain Numeric Pain Scale: 0-No Pain Location: No Pain Reported Objective Patient Orientation: Person, Time, Situation Problem Solving: Fair Attachments: Kirby Catheter, IV ROM/Strength ROM Lower Extremities bilateral LE WNL Strength Lower Extremities right knee flexion/extension 4-/5; hip flexion 4-/5; DF/PF 4-/5; abd/add 4-/5 left knee flexion/extension 4-/5; hip flexion 4-/5; DF/PF 4-/5; abd/add 4-/5 Integumentary/Posture Integumentary refer to nursing notes Bowel Incontinence: No Bladder Incontinence: Kirby Cath Posture severe kyphosis Neuromuscular (Tone, Coordination, Reflexes) slightly diminished coordination due to weakness/diminished functional mobility Sensory Vision: Wears Glasses Hearing: Impaired Sensation Right Lower Extremit: Intact Sensation Left Lower Extremity: Intact Transfers Functional [place] Measure 0=Not Assessed/NA 4=Minimal Assistance 1=Total Assistance 5=Supervision or Setup 2=Maximal Assistance 6=Modified [place] 3=Moderate Assistance 7=Complete [place] Transfers (B, C, W/C) (FIM): 4 Scootin Rollin Supine to/from Sit: 5 Sit to/from Stand: 4 Gait Mode of Locomotion: Walk Anticipated Mode of Locomotion: Walk Gait (FIM): 2 Distance (FIM): 1=212-90 ft Distance: 125' Gait Level of Assist: 5 Gait Persons Needed: 1 Gait Assistive Device: FWW Comments/Gait Description functional gait sequence with 2 episodes with LOB with self correction Balance Sitting Static: Normal Sitting Dynamic: Normal Standing Static: Fair Standing Dynamic: Fair Assessment/Needs 77 y.o. male, will benefit from skilled PT to address functional strength and mobility to improve current LOF and to safely return to home with spouse at maximum LOF. From a PT standpoint, patient would benefit from short stay in ARU to improve mobility and strength. Rehab Potential: Good PT Supervisor Publications Goals Supervisor Publications Goals PT Supervisor Publications Goals Time Frame: Nov 29, 2017 Transfers (B,C,W/C) (FIM): 6 Gait (FIM): 6 Gait distance (FIM): 3=150 ft Distance: 200' Gait Level of Assist: 6 Gait Assistive Device: FWW PT Plan Problem List Problem List: Activity Tolerance, Functional Strength, Safety, Balance, Gait, Transfer, Bed Mobility Treatment/Plan Treatment Plan: Continue Plan of Care Treatment Plan: Bed Mobility, Education, Functional Activity Fe[place], Functional Strength, Gait, Safety, Therapeutic Exercise, Transfers Treatment Duration: Nov 29, 2017 Frequency: 6 times per week Estimated Hrs Per Day: .25 hour per day Patient and/or Family Agrees t: Yes Safety Risks/Education Patient Education: Safety Issues Teaching Recipient: Patient Teaching Methods: Discussion Response to Teaching: Verbalize Understanding Discharge Recommendations Therapy D/C Recommendations: Acute Rehab Time/GCodes Time In: 1051 Time Out: 1105 Total Billed Treatment Time: 14 Total Billed Treatment 1 visit EVModC 14 min ANITA OLVERA PT Nov 12, 2017 11:55
--- NOTE | 2017-11-12 21:38 | Progress Note (SOAP) ---
Subjective Subjective/Events-last exam Patient much improved this AM. Alert and oriented. Tolerating PO diet. BM last night. Denies any pain or discomfort. Review of Systems Date Seen by Provider: Nov 12, 2017 Time Seen by Provider: 09:32 Pulmonary: No Dyspnea, No Cough Cardiovascular: Edema, No: Chest Pain, Palpitations Gastrointestinal: No: Nausea, Vomiting, Abdominal Pain, Diarrhea, Constipation Neurological: Weakness, No: Confusion Focused Exam Evaluation Lactate Level Laboratory Tests 11/10/17 21:12: Lactic Acid Level 2.55*H 11/11/17 03:05: Lactic Acid Level 2.21*H 11/11/17 05:04: Lactic Acid Level 1.80 Objective Exam Last Set of Vital Signs Vital Signs Date Time Temp Pulse Resp B/P (MAP) Pulse Ox O2 Delivery O2 Flow Rate FiO2 11/12/17 19:00 81 11/12/17 16:55 98.1 16 102/63 (76) 99 Room Air 11/11/17 00:21 21 Capillary Refill : Less Than 3 Seconds I&O Intake and Output 11/11/17 23:59 Intake Total 540 ml Output Total 1985 ml Balance -1445 ml Intake Oral 440 ml IV Total 100 ml Output Urine Total 1985 ml # Bowel Movements 1 General: Alert, Oriented X3, Cooperative, No Acute Distress HEENT: Mucous Memb Moist/Mcnab Lungs: Clear to Auscultation, Normal Air Movement Heart: Regular Rate, No Murmurs Abdomen: Normal Bowel Sounds, Soft, No Tenderness, No Masses Extremities: Other (2+ pitting edema) Neuro: Sensation Intact, Cranial Nerves 3-12 NL Psych/Mental Status: Mental Status NL, Mood NL Results/Procedures Lab Laboratory Tests 11/12/17 03:50: White Blood Count 8.6, Red Blood Count 5.26, Hemoglobin 15.4, Hematocrit 45, Mean Corpuscular Volume 86, Mean Corpuscular Hemoglobin 29, Mean Corpuscular Hemoglobin Concent 34, Red Cell Distribution Width 20.2H, Platelet Count 112L, Mean Platelet Volume 10.7H, Neutrophils (%) (Auto) 69, Lymphocytes (%) (Auto) 18 , Monocytes (%) (Auto) 14H, Eosinophils (%) (Auto) 0, Basophils (%) (Auto) 0, Neutrophils # (Auto) 5.9, Lymphocytes # (Auto) 1.5, Monocytes # (Auto) 1.2H, Eosinophils # (Auto) 0.0, Basophils # (Auto) 0.0, Sodium Level 139, Potassium Level 4.0, Chloride Level 103, Carbon Dioxide Level 24, Anion Gap 12, Blood Urea Nitrogen 32H, Creatinine 1.31H, Estimat Glomerular Filtration Rate 53, BUN/ Creatinine Ratio 24, Glucose Level 166H, Calcium Level 8.8, Phosphorus Level 3.9 , Magnesium Level 1.8 Microbiology 11/10/17 Blood Culture - Preliminary, Resulted No growth 11/10/17 MRSA Screen - Final, Complete MRSA not isolated 11/10/17 Urine Culture - Final, Complete NO GROWTH Radiology NAME: MICHAELA FARIAS [facility] REC#: [id number] PT STATUS: ADM IN : 1940 PHYSICIAN: GARRETT MACHADO DO ADMIT DATE: 11/10/17/ICU Draft Date of Exam:11/11/17 CHEST 1 VIEW, AP/PA ONLY INDICATION: Heart failure, compared 11/10. FINDINGS: Moderate to large left-sided pleural effusion, unchanged. Cardiomegaly, Unchanged. The right lung clear. The right lung vascularity not pathologically distended. Left lower lobe atelectatic likely owing to compression by the adjacent pleural fluid. IMPRESSION: No substantial change in cardiomegaly, partial left lung atelectasis and prominent left-sided pleural effusion. Dictated on workstation # [id number] Dict: 11/11/17 0758 Trans: 11/11/17 0805 [facility] [id number] Interpreted by: SELWYN CANDELARIA Electronically signed by: NAME: MICHAELA FARIAS [facility] REC#: [id number] PT STATUS: REG ER : 1940 PHYSICIAN: LISA RED MD ADMIT DATE: 11/10/17/ER Signed Date of Exam: 11/10/17 CT CHEST WO INDICATION: Shortness of air and weakness. COMPARISON STUDY: Plain film of the chest from today. FINDINGS: There is a large nonloculated left pleural effusion. A small amount of ascites is present. There is a small right pleural effusion. Cardiomegaly is present with no pericardial effusion. Dense coronary artery calcifications are present. There is coronary artery bypass graft changes. A cardiac pacemaker is in place. Atelectasis is seen adjacent to the left pleural effusion. No infiltrates are present. No abnormal adenopathy is seen. IMPRESSION: 1. There is a large left pleural effusion and a small right pleural effusion and some ascites. 2. Cardiomegaly is present with coronary artery bypass graft changes and a cardiac pacemaker. 3. Dependent atelectasis is seen adjacent to the left pleural effusion. Dictated by: Dictated on workstation # [id number] Dict: 11/10/171945 Trans: 11/10/171953 Interpreted by: COURTNEY BONE MD Electronically signed by: COURTNEY BONE MD 11/10/171953 Assessment/Plan Assessment/Plan (1) Altered mental status Status: Resolved Qualifiers: Qualified Codes: R41.0 - Disorientation, unspecified (2) Increased ammonia level Status: Acute Assessment & Plan: - Mental status improved and at baseline with lactulose (3) UTI (urinary tract infection) Status: Acute Assessment & Plan: - Day 2/5 antibiotics Qualifiers: Qualified Codes: N30.01 - Acute cystitis with hematuria (4) Pleural effusion Status: Acute Assessment & Plan: - Continue to monitor with Daily CXR (5) Chronic atrial fibrillation Status: Chronic Assessment & Plan: - Continue oral anticoagulation (6) Elevated liver enzymes Status: Acute Assessment & Plan: - Abdominal US with ascites and biliary sludge - Dr Hernandez consulted and evaluated patient (7) Acute on chronic combined systolic and diastolic CHF (congestive heart failure) Status: Acute Assessment & Plan: - Cardiology consulted - IV lasix given this AM (8) LIMITATION OF ACTIVITIES DUE TO DISABILITY Status: Acute Assessment & Plan: - PT/OT consulted - IRF consulted this AM (9) DVT prophylaxis Status: Acute Assessment & Plan: - Oral anticoagulation Clinical Quality Measures DVT/VTE Risk/Contraindication: Risk Factor Score Per Nursin RFS Level Per Nursing on Admit: 4+=Very High PARMINDER KAY MD Nov 12, 2017 21:38
[2017-11-12] MEDS: lisINopril 5 MG (PRINIVIL) TABLET PO SCH (21:50)
[2017-11-12] MEDS: CARVEDILOL 3.125 MG (COREG) TABLET PO SCH (21:50)
[2017-11-13] VITALS: BP 121/71
[2017-11-13] MEDS: PIPERACILLIN SODIUM/TAZOBACTAM 4.5 GM in NS (IVPB) 100 ML IV SCH ×2 (02:58→11:06)
[2017-11-13] MEDS: RT-ALBUTEROL/IPRATROPIUM 3 ML (DUONEB) VIAL INH SCH ×3 (03:02→19:54)
[2017-11-13 04:00] VITALS: BP 112/64
[2017-11-13 06:01] LABS: BASOPHILS % (AUTO) 0 % (0-10); EOSINOPHILS # (AUTO) 0.1 10^3/uL (0.0-0.3); EOSINOPHILS % (AUTO) 1 % (0-10); HEMATOCRIT 43 % (40-54); HEMOGLOBIN 14.9 G/DL (13.3-17.7); LYMPHOCYTES # (AUTO) 0.9 X 10^3 (1.0-4.0); LYMPHOCYTES % (AUTO) 11 % (12-44); MEAN CORPUSCULAR HEMOGLOBIN 30 PG (25-34); MEAN CORPUSCULAR HGB CONC 34 G/DL (32-36); MEAN CORPUSCULAR VOLUME 86 FL (80-99); MEAN PLATELET VOLUME 11.9 FL (7.4-10.4); MONOCYTES # (AUTO) 0.8 X 10^3 (0.0-1.0); MONOCYTES % (AUTO) 9 % (0-12); NEUTROPHILS # (AUTO) 6.9 X 10^3 (1.8-7.8); NEUTROPHILS % (AUTO) 79 % (42-75); PLATELET COUNT 105 10^3/uL (130-400); RED BLOOD COUNT 5.04 10^6/uL (4.35-5.85); RED CELL DISTRIBUTION WIDTH 20.3 % (10.0-14.5); WHITE BLOOD COUNT 8.7 10^3/uL (4.3-11.0)
[2017-11-13] MEDS: KCL 20 MEQ TAB (K-DUR) PO SCH ×2 (06:06→17:11)
[2017-11-13 06:24] LABS: ALANINE AMINOTRANSFERASE 25 U/L (0-55); ALBUMIN 2.8 GM/DL (3.2-4.5); ALKALINE PHOSPHATASE 112 U/L (40-136); BILIRUBIN,TOTAL 3.6 MG/DL (0.1-1.0); BUN/CREATININE RATIO 24; CALCIUM 8.1 MG/DL (8.5-10.1); CARBON DIOXIDE 24 MMOL/L (21-32); CHLORIDE 102 MMOL/L (98-107); CREATININE SERUM 1.11 MG/DL (0.60-1.30); GFR ESTIMATED > 60; GLUCOSE 170 MG/DL (70-105); MAGNESIUM 1.8 MG/DL (1.8-2.4); PHOSPHORUS 2.7 MG/DL (2.3-4.7); POTASSIUM 3.9 MMOL/L (3.6-5.0); SODIUM 137 MMOL/L (135-145); TOTAL PROTEIN 6.2 GM/DL (6.4-8.2)
--- NOTE | 2017-11-13 06:33 | Pulmonary Progress Note ---
Subjective Time Seen by Provider: 06:39 Subjective/Events-last exam Pt has no complaints and states he feels improved. Focused Exam Evaluation Lactate Level Laboratory Tests 11/10/17 21:12: Lactic Acid Level 2.55*H 11/11/17 03:05: Lactic Acid Level 2.21*H 11/11/17 05:04: Lactic Acid Level 1.80 Exam Exam Vital Signs Date Time Temp Pulse Resp B/P (MAP) Pulse Ox O2 Delivery O2 Flow Rate FiO2 11/13/17 04:00 98.2 80 18 112/64 (80) 96 Room Air 11/13/17 03:13 97 Room Air 11/13/17 01:00 80 11/13/17 00:00 97.0 83 16 121/71 (88) 98 Room Air 11/12/17 22:45 99 Room Air 11/12/17 21:44 84 124/74 (91) 11/12/17 20:00 98.1 80 16 114/79 (91) 97 Room Air 11/12/17 19:00 81 11/12/17 16:55 98.1 79 16 102/63 (76) 99 Room Air 11/12/17 16:06 98 Room Air 11/12/17 13:00 81 11/12/17 12:00 97.7 80 20 111/69 (83) 99 Room Air 11/12/17 10:39 98.4 81 18 107/56 (73) 99 Room Air 11/12/17 10:00 80 12 95/57 (70) 98 Room Air 11/12/17 09:00 80 23 99/74 (82) 97 Room Air 11/12/17 08:58 97 Room Air 11/12/17 08:00 Room Air 11/12/17 08:00 80 17 95/64 (74) 97 Room Air 11/12/17 08:00 97.8 11/12/17 07:00 80 11/12/17 07:00 80 14 94/65 (75) 97 Room Air I & O 11/13/17 07:00 Intake Total 1740 ml Output Total 1275 ml Balance 465 ml General Appearance: No Apparent Distress, Other (ill appearing) HEENT: PERRL/EOMI, Pharynx Normal Neck: Non Tender, Supple Respiratory: Decreased Breath Sounds (Left > RIght ) Cardiovascular: Regular Rate, Rhythm, No Murmur Capillary Refill: Less Than 3 Seconds Gastrointestinal: normal bowel sounds, non tender, soft, No rebound, No tenderness, No mass Extremity: No Calf Tenderness, Pedal Edema (portable is edema to the knees bilaterally), Pelvis Stable Neurologic/Psychiatric: Alert, Oriented x3, Other (awake and answers yes or no questions. Confused. Does follow commands. Disoriented to time and place but oriented to person.) Skin: Normal Color, Warm/Dry Lymphatic: No Adenopathy Results Lab Laboratory Tests 11/12/17 03:50 11/13/17 05:30 Assessment/Plan Assessment/Plan Left >Right pleural effusion -Pt is on Eliquis -I discussed with Dr. Roper will hold off on thoracentesis pt is only on RA -Dr. Roper will let me know if they decide to have thoracentesis -D/C IVF and continue Lasix UTI with severe sepsis SIRS criteria (RR, Hypothermia) -Zosyn -Alanis culture pending Dementia with worsening confusion - ammonia level is elevated -lactulose Cardiomyopathy with EF of 20% - Lasix is ordered BID -Consider adding spironolactone Weakness/debility -PT/OT Chronically elevated Liver enzymes with ascites -Last hep panel was negative Hx of Afib -PT is on Eliquis at home 232 Critical Care: Critically Ill Patient GARRETT MACHADO DO Nov 13, 2017 06:33
--- NOTE | 2017-11-13 07:55 | Diagnostic Imaging Report ---
INDICATION: Heart failure. Comparison with 11/12/2017. FINDINGS: There continues to be a large left pleural effusion. Left upper lung remains clear. Right lung is well-aerated and clear. There is no pulmonary edema. No hilar adenopathy. Cardiomegaly with median sternotomy changes again noted. The ICD pacer on the left is unchanged. IMPRESSION: Large left pleural effusion unchanged. Dictated by: Dictated on workstation # [id number]
[2017-11-13 08:00] VITALS: BP 110/71
[2017-11-13] MEDS: ASPIRIN 81 MG CHEW (CHILDREN'S ASA) PO SCH (08:32)
[2017-11-13] MEDS: lisINopril 5 MG (PRINIVIL) TABLET PO SCH ×2 (08:32→20:05)
[2017-11-13] MEDS: APIXABAN 2.5 MG (ELIQUIS) TABLET PO SCH ×2 (08:32→20:06)
[2017-11-13] MEDS: FUROSEMIDE 40 MG/4 ML INJ (LASIX) IV SCH (08:33)
[2017-11-13] MEDS: LACTULOSE SYRUP 10GM/15ML (ENULOSE) 30ML UDC PO SCH ×2 (08:33→20:06)
[2017-11-13] MEDS: CARVEDILOL 3.125 MG (COREG) TABLET PO SCH ×2 (08:33→20:05)
--- NOTE | 2017-11-13 11:56 | Progress Note (SOAP) ---
Subjective Subjective/Events-last exam Patient awake and eating breakfast this AM. States that he is feeling better but still weak. Walked to chair yesterday with PT and patient states that he was really unsteady. Denies any pain. Tolerating PO diet. BM this AM Review of Systems Date Seen by Provider: Nov 13, 2017 Time Seen by Provider: 10:25 Pulmonary: No Dyspnea, No Cough Cardiovascular: Edema, No: Chest Pain, Palpitations Gastrointestinal: No: Nausea, Vomiting, Diarrhea, Constipation Neurological: Weakness (generalized) Focused Exam Evaluation Lactate Level Laboratory Tests 11/10/17 21:12: Lactic Acid Level 2.55*H 11/11/17 03:05: Lactic Acid Level 2.21*H 11/11/17 05:04: Lactic Acid Level 1.80 Objective Exam Last Set of Vital Signs Vital Signs Date Time Temp Pulse Resp B/P (MAP) Pulse Ox O2 Delivery O2 Flow Rate FiO2 11/13/17 08:57 95 Room Air 11/13/17 08:00 98.0 80 20 110/71 (84) 11/11/17 00:21 21 Capillary Refill : Less Than 3 Seconds I&O Intake and Output 11/13/17 00:00 Intake Total 3040 ml Output Total 1925 ml Balance 1115 ml Intake Oral 1840 ml IV Total 1200 ml Output Urine Total 1925 ml General: Alert, Oriented X3, Cooperative, No Acute Distress HEENT: Mucous Memb Moist/[place] Lungs: Clear to Auscultation, Normal Air Movement Heart: Regular Rate, Other (systolic murmur) Abdomen: Normal Bowel Sounds, Soft, No Tenderness Extremities: Other (LE pitting edema bilaterally 2+, swelling around elbows bilaterally 1+ pitting edema) Skin: No Rashes, No Breakdown Neuro: Normal Speech Results/Procedures Lab Laboratory Tests 11/13/17 05:30: White Blood Count 8.7, Red Blood Count 5.04, Hemoglobin 14.9, Hematocrit 43, Mean Corpuscular Volume 86, Mean Corpuscular Hemoglobin 30, Mean Corpuscular Hemoglobin Concent 34, Red Cell Distribution Width 20.3H, Platelet Count 105L, Mean Platelet Volume 11.9H, Neutrophils (%) (Auto) 79H, Lymphocytes (%) (Auto) 11L, Monocytes (%) (Auto) 9, Eosinophils (%) (Auto) 1, Basophils (%) (Auto) 0, Neutrophils # (Auto) 6.9, Lymphocytes # (Auto) 0.9L, Monocytes # (Auto) 0.8, Eosinophils # (Auto) 0.1, Basophils # (Auto) 0.0, Sodium Level 137, Potassium Level 3.9, Chloride Level 102, Carbon Dioxide Level 24, Anion Gap 11, Blood Urea Nitrogen 27H, Creatinine 1.11, Estimat Glomerular Filtration Rate > 60, BUN /Creatinine Ratio 24, Glucose Level 170H, Calcium Level 8.1L, Phosphorus Level 2.7, Magnesium Level 1.8, Total Bilirubin 3.6H, Aspartate Amino Transf (AST/SGOT ) 36H, Alanine Aminotransferase (ALT/SGPT) 25, Alkaline Phosphatase 112, Total Protein 6.2L, Albumin 2.8L Microbiology 11/10/17 Blood Culture - Preliminary, Resulted No growth 11/10/17 MRSA Screen - Final, Complete MRSA not isolated 11/10/17 Urine Culture - Final, Complete NO GROWTH Radiology NAME: MICHAELA FARIAS [facility] REC#: [id number] PT STATUS: ADM IN : 1940 PHYSICIAN: GARRETT MACHADO DO ADMIT DATE: 11/10/17/ICU Draft Date of Exam:11/11/17 CHEST 1 VIEW, AP/PA ONLY INDICATION: Heart failure, compared 11/10. FINDINGS: Moderate to large left-sided pleural effusion, unchanged. Cardiomegaly, Unchanged. The right lung clear. The right lung vascularity not pathologically distended. Left lower lobe atelectatic likely owing to compression by the adjacent pleural fluid. IMPRESSION: No substantial change in cardiomegaly, partial left lung atelectasis and prominent left-sided pleural effusion. Dictated on workstation # [id number] Dict: 11/11/17 0758 Trans: 11/11/17 0805 [facility] [id number] Interpreted by: SELWYN CANDELARIA Electronically signed by: NAME: MICHAELA FARIAS [facility] REC#: [id number] PT STATUS: REG ER : 1940 PHYSICIAN: LISA RED MD ADMIT DATE: 11/10/17/ER Signed Date of Exam: 11/10/17 CT CHEST WO INDICATION: Shortness of air and weakness. COMPARISON STUDY: Plain film of the chest from today. FINDINGS: There is a large nonloculated left pleural effusion. A small amount of ascites is present. There is a small right pleural effusion. Cardiomegaly is present with no pericardial effusion. Dense coronary artery calcifications are present. There is coronary artery bypass graft changes. A cardiac pacemaker is in place. Atelectasis is seen adjacent to the left pleural effusion. No infiltrates are present. No abnormal adenopathy is seen. IMPRESSION: 1. There is a large left pleural effusion and a small right pleural effusion and some ascites. 2. Cardiomegaly is present with coronary artery bypass graft changes and a cardiac pacemaker. 3. Dependent atelectasis is seen adjacent to the left pleural effusion. Dictated by: Dictated on workstation # [id number] Dict: 11/10/171945 Trans: 11/10/171953 Interpreted by: COURTNEY BONE MD Electronically signed by: COURTNEY BONE MD 11/10/171953 Assessment/Plan Assessment/Plan (1) Altered mental status Status: Resolved Qualifiers: Qualified Codes: R41.0 - Disorientation, unspecified (2) Increased ammonia level Status: Acute Assessment & Plan: - Continue lactulose (3) UTI (urinary tract infection) Status: Acute Assessment & Plan: - Day 3/5 antibiotics, Will stop antibiotics as culture did not grow Qualifiers: Qualified Codes: N30.01 - Acute cystitis with hematuria (4) Pleural effusion Status: Acute Assessment & Plan: - Continue to monitor with Daily CXR, stable on CXR (5) Chronic atrial fibrillation Status: Chronic Assessment & Plan: - Continue oral anticoagulation, rate controlled (6) Elevated liver enzymes Status: Acute Assessment & Plan: - Abdominal US with ascites and biliary sludge, patient not good surgical candidate - Dr Hernandez consulted and evaluated patient (7) Acute on chronic combined systolic and diastolic CHF (congestive heart failure) Status: Acute Assessment & Plan: - Cardiology consulted - IV lasix given this AM (8) LIMITATION OF ACTIVITIES DUE TO DISABILITY Status: Acute Assessment & Plan: - Plan to transfer to IRF tomorrow or Saturday, patient has been accepted (9) DVT prophylaxis Status: Acute Assessment & Plan: - Oral anticoagulation Clinical Quality Measures DVT/VTE Risk/Contraindication: Risk Factor Score Per Nursin RFS Level Per Nursing on Admit: 4+=Very High PARMINDER KAY MD Nov 13, 2017 11:56
[2017-11-13 12:00] VITALS: BP 96/61
--- NOTE | 2017-11-13 15:50 | Physical Therapy Daily Note ---
PT Daily Note-Current Subjective Pt finishing shower with Aide assisting upon arrival. Pt agrees to PT. Pain Location: No Pain Reported Mental Status Patient Orientation: Person, Place, Situation Attachments: Kirby Catheter, IV Transfers Functional [place] Measure 0=Not Assessed/NA 4=Minimal Assistance 1=Total Assistance 5=Supervision or Setup 2=Maximal Assistance 6=Modified [place] 3=Moderate Assistance 7=Complete IndependenceIRFPAI Quality Coding Scale 6 Independent with activity with or without an assistive device 5 Patient requires set up or clean up by helper. Patient completes activity by themselves 4 Supervision or touching assist (CGA). [place] provide cues , steadying assist 3 The helper provides less than half the effort to complete the activity 2 The helper provides more than half the effort to complete the activity 1 Dependent. The helper does all the effort to complete an activity 7 Patient refused to complete or attempt activity 9 The patient did not perform the activity before the current illness or injury 88 Not attempted due to Medical conditions or safety concerns Scootin Supine to/from Sit: 5 Sit to/from Stand: 4 Weight Bearing Right Lower Extremity: Right Weight Bearing/Tolerated Left Lower Extremity: Left Weight Bearing/Tolerated Gait Training Distance (FIM): 3=150 ft Distance: 200' Gait Level of Assist: 5 Gait Persons Needed: 1 Gait Assistive Device: FWW Pt needs VC to stay closer to FWW. Pt walks with slow but steady gait, no LOB. Exercises Seated Therapy Exercises: Sit to stand Treatments Pt walks with Aide from bathroom to EOB to [facility] socks & shirt. ASSISTANT BOILER OPERATOR asked Nurse to check on pt's IV and upon return IV was pulled and pt was bleeding. Nurse & ASSISTANT BOILER OPERATOR assist pt with clean up. Pt transfers to standing from EOB at SBA then ambulates in hallway using FWW at close SBA. Pt returns to rest in recliner with all needs met at end of tx. Assessment Current Status: Good Progress Pt is walking farther distances with decreased effort. Pt is getting stronger. PT Adjuster And Inspector Goals Adjuster And Inspector Goals PT Snf Goals Time Frame: Nov 29, 2017 Transfers (B,C,W/C) (FIM): 6 Gait (FIM): 6 Gait distance (FIM): 3=150 ft Distance: 200' Gait Level of Assist: 6 Gait Assistive Device: FWW PT Plan Problem List Problem List: Activity Tolerance, Functional Strength, Safety, Balance, Gait Treatment/Plan Treatment Plan: Continue Plan of Care Treatment Plan: Bed Mobility, Education, Functional Activity Fele[place], Functional Strength, Gait, Safety, Therapeutic Exercise, Transfers Treatment Duration: Nov 29, 2017 Frequency: 6 times per week Estimated Hrs Per Day: .25 hour per day Patient and/or Family Agrees t: Yes Safety Risks/Education Patient Education: Gait Training, Transfer Techniques, Correct Positioning, Safety Issues Teaching Recipient: Patient Teaching Methods: Discussion Response to Teaching: Verbalize Understanding Time/GCodes Time In: 1435 Time Out: 1505 Total Billed Treatment Time: 30 Total Billed Treatment 1, GT (15m) & FA (15m) LAKESHA GARCIA ASSISTANT BOILER OPERATOR Nov 13, 2017 15:50
[2017-11-13 16:00] VITALS: BP 93/62
[2017-11-13] MEDS: FUROSEMIDE 40 MG (LASIX) TAB PO SCH (17:11)
--- NOTE | 2017-11-13 18:04 | Progress Note-Cardiology ---
Cardiology SOAP Progress Note Objective: I&O/Vital Signs Vital Sign - Last 12Hours 11/13/17 11/13/17 11/13/17 11/13/17 07:00 08:00 08:15 08:57 Temp 98.0 Pulse 80 80 Resp 20 B/P (MAP) 110/71 (84) Pulse Ox 97 95 O2 Delivery Room Air Room Air Room Air 11/13/17 11/13/17 11/13/17 11/13/17 12:00 13:00 14:56 16:00 Temp 98.6 97.8 Pulse 80 80 80 79 Resp 20 18 B/P (MAP) 96/61 (73) 93/62 (72) Pulse Ox 98 95 93 O2 Delivery Room Air Room Air Intake and Output 11/13/17 00:00 Intake Total 1380 ml Output Total 1000 ml Balance 380 ml Weight (Pounds): 185 Weight (Ounces): 4.0 Weight (Calculated Kilograms): 84.327551 Constitutional: AAO x 3 Respiratory: other (dullness to percussion and dimished bs over the L mid and lower zones ) Cardiovascular: regular rate-rhythm (paced), S1 and S2, systolic murmur Gastrointestional: soft, audible bowel sounds Extremities: significant edema (mod bilat LE edema, mild upper extremity edema) Neurologic/Psychiatric: grossly intact Skin: warm/dry, jaundice, No ulcerations, other (scabbing to the right knee; right crouch with an abrasion with serous drainage) Results/Procedures: Labs Laboratory Tests 11/13/17 05:30: White Blood Count 8.7, Red Blood Count 5.04, Hemoglobin 14.9, Hematocrit 43, Mean Corpuscular Volume 86, Mean Corpuscular Hemoglobin 30, Mean Corpuscular Hemoglobin Concent 34, Red Cell Distribution Width 20.3H, Platelet Count 105L, Mean Platelet Volume 11.9H, Neutrophils (%) (Auto) 79H, Lymphocytes (%) (Auto) 11L, Monocytes (%) (Auto) 9, Eosinophils (%) (Auto) 1, Basophils (%) (Auto) 0, Neutrophils # (Auto) 6.9, Lymphocytes # (Auto) 0.9L, Monocytes # (Auto) 0.8, Eosinophils # (Auto) 0.1, Basophils # (Auto) 0.0, Sodium Level 137, Potassium Level 3.9, Chloride Level 102, Carbon Dioxide Level 24, Anion Gap 11, Blood Urea Nitrogen 27H, Creatinine 1.11, Estimat Glomerular Filtration Rate > 60, BUN /Creatinine Ratio 24, Glucose Level 170H, Calcium Level 8.1L, Phosphorus Level 2.7, Magnesium Level 1.8, Total Bilirubin 3.6H, Aspartate Amino Transf (AST/SGOT ) 36H, Alanine Aminotransferase (ALT/SGPT) 25, Alkaline Phosphatase 112, Total Protein 6.2L, Albumin 2.8L Microbiology 11/10/17 Blood Culture - Preliminary, Resulted No growth 11/10/17 MRSA Screen - Final, Complete MRSA not isolated 11/10/17 Urine Culture - Final, Complete NO GROWTH Laboratory Tests 11/12/17 03:50 11/13/17 05:30 A/P: Assessment: Shortness of breath that is likely multifactorial (see below) Acute on chronic systolic CHF Large left pleural effusion seen on CT of the chest of 11-10-17 and CXR of - management per pulmonary services Weakness/confusion of new onset - confusion improved, but remains weak Elevated bilirubin, indicative of jaundice of unknown etiology Echo of 11/11/17: LVEF 15-20%, biatrial enlargement, mod MR, mild to mod TR, PASP approx 30 mmHg, IVC dilatation UTI - management per medical services Ischemic Cardiomyopathy. LVEF 35-40%, based on TTE and CROW of 04/18/15 and . LVEF 22% on MPI of 05/19/15. LVEF 33% on MUGA of 05/24/15. LVEF 20-25% on echo of 09/06/17. LVEF 15-20% on echo of 11/11/17 Hospitalization in Oct 2016 with sepsis and influenza A and multi-organ involvement, including hepatic insufficiency - resolved Persistent a fib with poor vent rate control, treated with AVN ablation in mid Sep 2015 at [facility] by Dr Hernández. S/P ablation for atrial flutter by Dr. Hernández at [facility] by Dr. Hernández on 06/09/15 S/p single ch ICD implanted on 02/07/16, upgraded to OFFICE CASHIER-D by Dr Hernández in Sep 2015 , functioning normally on interrogation of June 2017 Episode of wide complex tachycardia during hospitalization of January 20, 2016 OAC with Xarelto CAD with history of CABGx5 at the [facility] February 2012. Details of CABG unavailable. 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
[2017-11-13 19:56] VITALS: BP 111/78
[2017-11-14 00:15] VITALS: BP 109/69
[2017-11-14 03:58] VITALS: BP 109/77
[2017-11-14 06:27] LABS: BASOPHILS % (AUTO) 0 % (0-10); EOSINOPHILS # (AUTO) 0.1 10^3/uL (0.0-0.3); EOSINOPHILS % (AUTO) 1 % (0-10); HEMATOCRIT 45 % (40-54); HEMOGLOBIN 15.5 G/DL (13.3-17.7); LYMPHOCYTES # (AUTO) 1.2 X 10^3 (1.0-4.0); LYMPHOCYTES % (AUTO) 13 % (12-44); MEAN CORPUSCULAR HEMOGLOBIN 30 PG (25-34); MEAN CORPUSCULAR HGB CONC 34 G/DL (32-36); MEAN CORPUSCULAR VOLUME 87 FL (80-99); MONOCYTES # (AUTO) 0.8 X 10^3 (0.0-1.0); MONOCYTES % (AUTO) 9 % (0-12); NEUTROPHILS # (AUTO) 6.9 X 10^3 (1.8-7.8); NEUTROPHILS % (AUTO) 77 % (42-75); PLATELET COUNT 108 10^3/uL (130-400); RED BLOOD COUNT 5.24 10^6/uL (4.35-5.85); RED CELL DISTRIBUTION WIDTH 20.2 % (10.0-14.5); WHITE BLOOD COUNT 8.9 10^3/uL (4.3-11.0)
[2017-11-14] MEDS: KCL 20 MEQ TAB (K-DUR) PO SCH (06:32)
[2017-11-14] MEDS: FUROSEMIDE 40 MG (LASIX) TAB PO SCH (06:32)
[2017-11-14 06:47] LABS: INR 1.6 (0.8-1.4); PROTHROMBIN TIME PATIENT 19.4 SEC (12.2-14.7)
--- NOTE | 2017-11-14 06:54 | Diagnostic Imaging Report ---
INDICATION: Acute cardiac failure. COMPARISON: 11/13/2017 FINDINGS: Single frontal radiographic view of the chest was obtained and demonstrates persistent large left-sided pleural effusion. Right lung is relatively clear. There is no large effusion on the right. No pneumothorax is seen on either side. Overall, aeration is largely stable Cardiac silhouette is partially obscured, but does appear to be enlarged. Pulmonary vasculature is within normal limits. Sternotomy wires and left-sided AICD are noted. Bony structures show no gross acute abnormalities. IMPRESSION: 1. Stable exam of the chest showing large left-sided pleural effusion. 2. Cardiomegaly. Dictated by: Dictated on workstation # [id number]
[2017-11-14 07:10] LABS: BUN/CREATININE RATIO 23; CALCIUM 8.5 MG/DL (8.5-10.1); CARBON DIOXIDE 24 MMOL/L (21-32); CHLORIDE 101 MMOL/L (98-107); CREATININE SERUM 1.07 MG/DL (0.60-1.30); GFR ESTIMATED > 60; GLUCOSE 143 MG/DL (70-105); MAGNESIUM 1.8 MG/DL (1.8-2.4); PHOSPHORUS 2.3 MG/DL (2.3-4.7); POTASSIUM 4.2 MMOL/L (3.6-5.0); SODIUM 134 MMOL/L (135-145)
--- NOTE | 2017-11-14 08:15 | Pulmonary Progress Note ---
Subjective Time Seen by Provider: 08:14 Subjective/Events-last exam pt appears stable and is only on RA. Exam Exam Vital Signs Date Time Temp Pulse Resp B/P (MAP) Pulse Ox O2 Delivery O2 Flow Rate FiO2 11/14/17 07:00 80 11/14/17 03:58 97.9 80 16 109/77 (88) 96 Room Air 11/14/17 01:00 80 11/14/17 00:15 98.2 79 17 109/69 (82) 97 Room Air 11/13/17 20:10 Room Air 11/13/17 19:56 98.2 80 20 111/78 (89) 98 Room Air 11/13/17 19:54 96 Room Air 11/13/17 19:00 80 11/13/17 16:00 97.8 79 18 93/62 (72) 93 Room Air 11/13/17 14:56 80 95 11/13/17 13:00 80 11/13/17 12:00 98.6 80 20 96/61 (73) 98 Room Air 11/13/17 08:57 95 Room Air 11/13/17 08:15 Room Air I & O 11/14/17 07:00 Intake Total 1960 ml Output Total 1350 ml Balance 610 ml General Appearance: No Apparent Distress, Other (ill appearing) HEENT: PERRL/EOMI, Pharynx Normal Neck: Non Tender, Supple Respiratory: Decreased Breath Sounds (Left > RIght ) Cardiovascular: Regular Rate, Rhythm, No Murmur Capillary Refill: Less Than 3 Seconds Gastrointestinal: normal bowel sounds, non tender, soft, No rebound, No tenderness, No mass Extremity: No Calf Tenderness, Pedal Edema (portable is edema to the knees bilaterally), Pelvis Stable Neurologic/Psychiatric: Alert, Oriented x3, Other (awake and answers yes or no questions. Confused. Does follow commands. Disoriented to time and place but oriented to person.) Skin: Normal Color, Warm/Dry Lymphatic: No Adenopathy Results Lab Laboratory Tests 11/13/17 05:30 11/14/17 05:30 Assessment/Plan Assessment/Plan Left >Right pleural effusion -Pt is on Eliquis -I discussed with Dr. Roper will hold off on thoracentesis pt is only on RA -Dr. Roper will let me know if they decide to have thoracentesis -D/C IVF and continue Lasix UTI with severe sepsis SIRS criteria (RR, Hypothermia) -Zosyn -Alanis culture pending Dementia with worsening confusion - ammonia level is elevated -lactulose Cardiomyopathy with EF of 20% - Lasix is ordered BID Weakness/debility -PT/OT Chronically elevated Liver enzymes with ascites -Last hep panel was negative Hx of Afib -PT is on Eliquis at home 232 Critical Care: Critically Ill Patient GARRETT MACHADO DO Nov 14, 2017 08:15
[2017-11-14 08:30] VITALS: BP 110/76
--- NOTE | 2017-11-14 08:38 | Cardiology Progress Note ---
Subjective Date Seen by Provider: Nov 14, 2017 Time Seen by Provider: 08:32 Subjective/Events-last exam Patient is sitting up in bed, no new complaints. Denies any CP or dyspnea. Review of Systems General: No Night Sweats, No Fatigue, No Malaise HEENT: No Visual Changes, No Dysphasia, No Sore Throat Pulmonary: No Dyspnea, No Cough Cardiovascular: Edema, No: Chest Pain, Palpitations Gastrointestinal: No: Nausea, Vomiting, Abdominal Pain Genitourinary: No Dysuria, No Frequency Musculoskeletal: No: neck pain, back pain Neurological: Weakness, No: Numbness, Change in speech, Confusion Objective-Cardiology Exam Last Set of Vital Signs Vital Signs 11/11/17 11/14/17 11/14/17 00:21 03:58 07:00 Temp 97.9 Pulse 80 Resp 16 B/P (MAP) 109/77 (88) Pulse Ox 96 O2 Delivery Room Air FiO2 21 Capillary Refill : Less Than 3 Seconds I&O Intake and Output 11/14/17 00:00 Intake Total 1760 ml Output Total 2050 ml Balance -290 ml Intake Oral 1560 ml IV Total 200 ml Output Urine Total 2050 ml # Bowel Movements 1 General: Alert, Oriented X3, Cooperative, No Acute Distress HEENT: Mucous Memb Moist/Wise Lungs: Clear to Auscultation, Normal Air Movement Heart: Regular Rate, Other (systolic murmur) Abdomen: Normal Bowel Sounds, Soft, No Tenderness Extremities: Other (LE pitting edema bilaterally 1+) Skin: No Rashes, No Breakdown Neuro: Normal Speech Psych/Mental Status: Mental Status NL, Mood NL Results Lab Laboratory Tests 11/14/17 05:30 A/P-Cardiology Admission Diagnosis Acute on Chronic CHF, Ischemic Cardiomyopathy CAD HTN Chronic Atrial fibrillation Assessment/Plan Shortness of breath that is likely multifactorial (see below).Patient reports improvement in breathing today. Continue to monitor. Acute on chronic systolic CHF, Ischemic Cardiomyopathy. LVEF 35-40%, based on TTE and CROW of 04/18/15 and 04/19/15. LVEF 22% on MPI of 05/19/15. LVEF 33% on MUGA of 05/24/15. LVEF 20-25% on echo of 09/06/17. LVEF 15-20% on echo of 11/11/17 Large left pleural effusion seen on CT of the chest of 11-10-17 and CXR of - management per pulmonary services CAD with history of CABGx5 at the [facility] February 2012. Details of CABG unavailable. MPI of 05/19/15 did not show ischemia or infarction but there was LV enlargement and LVEF was 22% Persistent a fib with poor vent rate control, treated with AVN ablation in mid Sep 2015 at [facility] by Dr Hernández. S/P ablation for atrial flutter by Dr. Hernández at [facility] by Dr. Hernández on 06/09/15, maintained on Xarelto. Telemetry reveals paced rhythm, continue to monitor. S/p single ch ICD implanted on 02/07/16, upgraded to CEREAL CHEMIST-D by Dr Hernández in Sep 2015 , functioning normally on interrogation of June 2017 Weakness/confusion of new onset - confusion improved, but remains weak Elevated bilirubin, indicative of jaundice of unknown etiology, continue to monitor. 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
[2017-11-14] MEDS ORDERED: cefTRIAXone INJECTION 1,000 MG in NS (IVPB) 100 ML IV NR (09:00)
[2017-11-14] MEDS: RT-ALBUTEROL/IPRATROPIUM 3 ML (DUONEB) VIAL INH SCH (09:37)
[2017-11-14] MEDS: APIXABAN 2.5 MG (ELIQUIS) TABLET PO SCH (09:58)
[2017-11-14] MEDS: ASPIRIN 81 MG CHEW (CHILDREN'S ASA) PO SCH (09:59)
[2017-11-14] MEDS: lisINopril 5 MG (PRINIVIL) TABLET PO SCH (09:59)
[2017-11-14] MEDS: LACTULOSE SYRUP 10GM/15ML (ENULOSE) 30ML UDC PO SCH (09:59)
[2017-11-14] MEDS: CARVEDILOL 3.125 MG (COREG) TABLET PO SCH (09:59)
--- NOTE | 2017-11-14 10:26 | Discharge Summary ---
Diagnosis/Chief Complaint Date of Admission Nov 10, 2017 at 8:45 pm Date of Discharge Chief Complaint/HPI Chief Complaint/HPI 77 yo M with multiple medical comorbidities that presents to the ER brought in by family with increasing confusion. Patient was found to have UTI with Severe Sepsis. Patient states that he had been feeling bad for several days prior to coming to ER. Denies missing doses of medications. Denies any pain. Still pleasantly confused this AM. Discharge Summary-Simple/Stand Consultations Discharge Physical Examination Allergies: Coded Allergies: No Known Drug Allergies (Unverified , 04/17/15) Vitals & I&Os Vital Sign - Last 12Hours Date Time Temp Pulse Resp B/P (MAP) Pulse Ox O2 Delivery O2 Flow Rate FiO2 11/14/17 09:37 95 Room Air 11/14/17 08:30 97.3 80 20 110/76 (87) 11/11/17 00:21 21 Intake and Output 11/14/17 00:00 Intake Total 1560 ml Output Total 1050 ml Balance 510 ml Hospital Course See final discharge diagnosis. Radiology Reviewed NAME: CESILIA FARIASDY Andrew [facility] REC#: [id number] PT STATUS: ADM IN : 1940 PHYSICIAN: GARRETT MACHADO DO ADMIT DATE: 11/10/17/ICU Draft Date of Exam:11/11/17 CHEST 1 VIEW, AP/PA ONLY INDICATION: Heart failure, compared 11/10. FINDINGS: Moderate to large left-sided pleural effusion, unchanged. Cardiomegaly, Unchanged. The right lung clear. The right lung vascularity not pathologically distended. Left lower lobe atelectatic likely owing to compression by the adjacent pleural fluid. IMPRESSION: No substantial change in cardiomegaly, partial left lung atelectasis and prominent left-sided pleural effusion. Dictated on workstation # [id number] Dict: 11/11/17 0758 Trans: 11/11/17 0805 [facility] [id number] Interpreted by: SELWYN CANDELARIA Electronically signed by: NAME: CESILIA FARIASDY Andrew [facility] REC#: [id number] PT STATUS: REG ER : 1940 PHYSICIAN: LISA RED MD ADMIT DATE: 11/10/17/ER Signed Date of Exam: 11/10/17 CT CHEST WO INDICATION: Shortness of air and weakness. COMPARISON STUDY: Plain film of the chest from today. FINDINGS: There is a large nonloculated left pleural effusion. A small amount of ascites is present. There is a small right pleural effusion. Cardiomegaly is present with no pericardial effusion. Dense coronary artery calcifications are present. There is coronary artery bypass graft changes. A cardiac pacemaker is in place. Atelectasis is seen adjacent to the left pleural effusion. No infiltrates are present. No abnormal adenopathy is seen. IMPRESSION: 1. There is a large left pleural effusion and a small right pleural effusion and some ascites. 2. Cardiomegaly is present with coronary artery bypass graft changes and a cardiac pacemaker. 3. Dependent atelectasis is seen adjacent to the left pleural effusion. Dictated by: Dictated on workstation # [id number] Dict: 11/10/171945 Trans: 11/10/171953 Interpreted by: COURTNEY BONE MD Electronically signed by: COURTNEY BONE MD 11/10/171953 Discharge Instructions to patient/family Please see electronic discharge instructions given to patient. Discharge Medications Reviewed and agree with Discharge Medication list on patient's Discharge Instruction sheet Clinical Quality Measures DVT/VTE Risk/Contraindication: Risk Factor Score Per Nursin RFS Level Per Nursing on Admit: 4+=Very High PARMINDER KAY MD Nov 14, 2017 10:26 am
[2017-11-14] MEDS ORDERED: LACT20SO2 PO (10:31)
[2017-11-14] MEDS ORDERED: CARV3.122 PO (10:31)
[2017-11-14] MEDS ORDERED: APIX2.5T PO (10:31)
--- NOTE | 2017-11-14 10:32 | Discharge Instructions ---
Discharge Inst-[facility] Discharge Medications New, Converted or Re-Newed RX: Other New Medications: Apixaban (Eliquis) 2.5 Mg Tablet 2.5 MG PO BID for 30 Days, TAB Carvedilol (Carvedilol) 3.125 Mg Tablet 3.125 MG PO BID for 30 Days, TAB Lactulose (Lactulose) 20 Gm/30 Ml Solution 10 GM PO DAILY for 30 Days, EA Continued Medications: Allopurinol (Allopurinol) 100 Mg Tablet 100 MG PO DAILY, TAB Aspirin (Aspirin EC) 81 Mg Tablet.dr 81 MG PO DAILY, TAB Furosemide (Furosemide) 40 Mg Tablet 80 MG PO DAILY, TAB LAST FILLED #60 08-27-17 TAKES 2 (40MG) TABLETS Glyburide (Glyburide) 5 Mg Tablet 2.5 MG PO DAILY, TAB LAST FILLED #45 05-27-17 TAKES 1/2 (5MG) TABLET Lisinopril (Lisinopril) 10 Mg Tablet 10 MG PO DAILY, TAB Metolazone (Metolazone) 5 Mg Tablet 5 MG PO DAILY, TAB LAST FILLED #31 AUGUST 2017 Multivitamin (Daily Multiple Vitamin) 1 Each Tablet 1 TAB PO DAILY, TAB Potassium Chloride (Klor-Con 10) 10 Meq Tablet.er 10 MEQ PO DAILY, TAB Discontinued Medications: Amiodarone HCl (Amiodarone HCl) 200 Mg Tablet 200 MG PO DAILY, TAB Garlic (Garlic) 1,000 Mg Capsule 1000 MG PO DAILY, CAP Metoprolol Succinate (Metoprolol Succinate) 25 Mg Tab.er.24h 25 MG PO DAILY, TAB Patient Instructions Goal/Follow Up Appt: - Transfer to [facility] PARMINDER KAY MD Nov 14, 2017 10:32 am
[2017-11-14] MEDS ORDERED: AMIO200T2 PO (13:37)
[2017-11-14] MEDS ORDERED: METO-387 PO (13:37)
[2017-11-14] MEDS ORDERED: GARL10002 PO (13:37)
== END 2017-11-14 10:41 | DRG 871 ==
LOC: EDUNIT# 18:09 → ER 18:10 → ICU 20:45 → 4TH 11-12 10:40
PROVIDERS: ADMIT Family Medicine; ATTEND Family Medicine
DX: A41.9 Sepsis, unspecified organism (principal); R65.20 Severe sepsis without septic shock; N39.0 Urinary tract infection, site not specified; I13.0 Hypertensive heart and chronic kidney disease with heart failure and stage 1 through stage 4 chronic kidney disease, or unspecified chronic kidney disease; I50.43 Acute on chronic combined systolic (congestive) and diastolic (congestive) heart failure; N18.4 Chronic kidney disease, stage 4 (severe); R18.8 Other ascites; J90 Pleural effusion, not elsewhere classified; K83.8 Other specified diseases of biliary tract; I25.5 Ischemic cardiomyopathy; I25.10 Atherosclerotic heart disease of native coronary artery without angina pectoris; E11.51 Type 2 diabetes mellitus with diabetic peripheral angiopathy without gangrene; I48.2 Chronic atrial fibrillation; R74.8 Abnormal levels of other serum enzymes; R41.0 Disorientation, unspecified; F03.90 Unspecified dementia, unspecified severity, without behavioral disturbance, psychotic disturbance, mood disturbance, and anxiety; D69.6 Thrombocytopenia, unspecified; R53.1 Weakness; I08.1 Rheumatic disorders of both mitral and tricuspid valves; M10.9 Gout, unspecified; I65.29 Occlusion and stenosis of unspecified carotid artery; N62 Hypertrophy of breast; Z79.84 Long term (current) use of oral hypoglycemic drugs; Z87.891 Personal history of nicotine dependence; Z95.810 Presence of automatic (implantable) cardiac defibrillator; Z95.1 Presence of aortocoronary bypass graft; Z79.01 Long term (current) use of anticoagulants; Z79.899 Other long term (current) drug therapy; Z91.81 History of falling
CPT/HCPCS: 36415; 70450; 71045; 71250; 76700; 80048; 80053; 81000; 82140; 82805; 82962; 83605; 83735; 83880; 84100; 84443; 84484; 85025; 85610; 85730; 86141; 87040; 87081; 87088; 93005; 93041; 93306; 94640; 94760; 96361; 96365

== ENCOUNTER 2017-11-14 10:10 | Inpatient (IN) | payer MEDICARE, OTHER ==
[~2017-11-14] VITALS: Ht 182.9 cm; Wt 84.1 kg
[~2017-11-14 10:10] MED LIST changes: +GARL10002 PO; +LISI10TA2 PO; +METO5TAB6 PO; +MULT-35 PO; +POTA10TA6 PO
[2017-11-14] MEDS ORDERED: LACT20SO2 PO (10:31)
[2017-11-14] MEDS ORDERED: CARV3.122 PO (10:31)
[2017-11-14] MEDS ORDERED: APIX2.5T PO (10:31)
[2017-11-14 10:40] VITALS: BP 124/72
--- NOTE | 2017-11-14 11:34 | Physical Therapy Evaluation ---
PT Evaluation-General Medical Diagnosis Admission Date 2017 Medical Diagnosis: acute heart failure Onset Date: Nov 10, 2017 Therapy Diagnosis Therapy Diagnosis: generalized weakness/debility Height/Weight Height (Feet): 6 Height (Inches): 0.00 Weight (Pounds): 187 Weight (Ounces): 6.4 Precautions Precautions/Isolations: Fall Prevention, Standard Precautions Weight Bear Status Right Lower Extremity: Right Full Weight Bearing Left Lower Extremity: Left Full Weight Bearing Referral Physician: Jt Reason for Referral: Evaluation/Treatment Medical History Pertinent Medical History: Atrial Fib, CABG, CAD, DM, Dementia, Heart Failure, HTN Additional Medical History EF 20% Current History ED with increase confusion and weakness Reviewed History: Yes Social History Home: Single Level Current Living Status: Spouse Entry Into Home: Stairs Without Railing PT Steps Into Home: 3 Prior/Core FIM Prior Level of Function Functional [place] Measure 0=Not Assessed/NA 4=Minimal Assistance 1=Total Assistance 5=Supervision or Setup 2=Maximal Assistance 6=Modified [place] 3=Moderate Assistance 7=Complete [place] Bed Mobility: 6 Transfers (B,C,W/C) (FIM): 6 Gait: 6 PT Evaluation-Current Subjective Patient agrees to PT. No c/o. Pain Numeric Pain Scale: 0-No Pain Location: No Pain Reported Objective Patient Orientation: Normal For Age Problem Solving: Fair ROM/Strength ROM Lower Extremities bilateral LE wNL Strenght Lower Extremities right knee flexion/extension 4-/5; hip flexion 4-/5; DF/PF 4-/5 left knee flexion/extension 4-/5; hip flexion 4-/5; DF/PF 4-/5 Integumentary/Posture Integumentary refer to nursing notes Bowel Incontinence: No Bladder Incontinence: No Posture kyphotic Neuromuscular (Tone, Coordination, Reflexes) diminished coordination due to weakness and inactivity PLOF Sensory Vision: Wears Glasses Hearing: Impaired Sensation Right Lower Extremit: Intact Sensation Left Lower Extremity: Intact Transfers Functional [place] Measure 0=Not Assessed/NA 4=Minimal Assistance 1=Total Assistance 5=Supervision or Setup 2=Maximal Assistance 6=Modified [place] 3=Moderate Assistance 7=Complete IndependenceIRFPAI Quality Coding Scale 6 Independent with activity with or without an assistive device 5 Patient requires set up or clean up by helper. Patient completes activity by themselves 4 Supervision or touching assist (CGA). [place] provide cues , steadying assist 3 The helper provides less than half the effort to complete the activity 2 The helper provides more than half the effort to complete the activity 1 Dependent. The helper does all the effort to complete an activity 7 Patient refused to complete or attempt activity 9 The patient did not perform the activity before the current illness or injury 88 Not attempted due to Medical conditions or safety concerns Transfers (B, C, W/C) (FIM): 4 Scootin Rollin Roll Left to Right (QC): 4 Supine to/from Sit: 4 Sit to/from Stand: 4 Sit to Lying (QC): 4 Lying to Sitting/Side of Bed(Q: 4 Sit to Stand (QC): 4 Chair/Nlg-nq-Xpkzn Xfer(QC): 4 Car Transfer (QC): 4 Gait Does the Patient Walk?: Yes Mode of Locomotion: Walk Anticipated Mode of Locomotion: Walk Gait (FIM): 2 Distance (FIM): 2=896-06 ft Walk 10 feet (QC): 4 Walk 50 ft with 2 Turns(QC): 4 Walk 150 ft (QC): 88 Walking 10ft/uneven surface-QC: 4 Distance: 125' x 4 Gait Level of Assist: 4 Gait Persons Needed: 1 Gait Assistive Device: FWW Comments/Gait Description extended UE's with FWW with skilled verbal instruction for body placement in FWW for safety. shuffle gait sequence/minimal foot clearance Wheelchair Training Does the Pt Use a Wheelchair?: No Stairs Stairs (FIM): 4 #of Steps: 8 Level of Assist: 4 1 Step (curb) (QC): 4 4 Steps (QC): 4 12 Steps (QC): 9 Balance Sitting Static: Normal Sitting Dynamic: Normal Standing Static: Fair Standing Dynamic: Fair Picking up an Object (QC): 3 Treatment NuStep WL 4 x 10 min to increase strength and improve functional mobility Assessment/Needs 77 y.o. male, will benefit from skilled PT to address functional strength and mobility to improve current LOF and to safely return to home with spouse at maximum LOF. Rehab Potential: Fair Post Rehab Potential-Barriers: EF 20% PT Half-Way Goals Half-Way Goals PT Yarn Weigher Goals Time Frame: Dec 06, 2017 Transfers (B,C,W/C) (FIM): 6 Sit to Lying (QC): 6 Lying-Sitting on Side/Bed(QC): 6 Sit to Stand (QC): 6 Rollin Roll Left to Right (QC): 6 Chair/Psf-mq-Uaqli Xfer(QC): 6 Car Transfer (QC): 6 Does the Patient Walk: Yes Gait (FIM): 6 Gait distance (FIM): 3=150 ft Distance: 150' Walk 10 feet (QC): 6 Walk 10ft-Uneven Surface(QC): 6 Walk 50ft with 2 Turns (QC): 6 Walk 150 ft (QC): 6 Gait Level of Assist: 6 Gait Assistive Device: FWW Stairs (FIM): 5 # of Steps: 8 1 Step (curb) (QC): 5 4 Steps (QC): 5 12 Steps (QC): 9 Stairs Level Of Assist: 5 Picking up an Object (QC): 5 PT Plan Problem List Problem List: Activity Tolerance, Functional Strength, Safety, Balance, Gait, Transfer, Bed Mobility, ROM Treatment/Plan Treatment Plan: Continue Plan of Care Treatment Plan: Bed Mobility, Concurrent Therapy, Education, Functional Activity [place], Functional Strength, Group Therapy, Gait, Safety, Therapeutic Exercise, Transfers Treatment Duration: Dec 06, 2017 Frequency: At least 5 of 7 days/Wk (IRF) Estimated Hrs Per Day: 1.5 hours per day Patient and/or Family Agrees t: Yes Safety Risks/Education Patient Education: Safety Issues Teaching Recipient: Patient Teaching Methods: Discussion Response to Teaching: Verbalize Understanding Discharge Recommendations Therapy D/C Recommendations: Home w/ Family Support, Physical Therapy Home Care Time/GCodes Time In: 1035 Time Out: 1125 Total Billed Treatment Time: 50 Total Billed Treatment 1 visit EVModC 40 min EX 10 min ANITA OLVERA PT Nov 14, 2017 11:34
--- NOTE | 2017-11-14 12:43 | PM&R Post Admission Assessment ---
Post Admission Physician Asses The preadmission screen agrees with the post admission assessment that the patient is a good candidate for inpatient rehabilitation. The patient will have a comprehensive program of inpatient rehabilitation with a goal of maximizing level of functional independence prior to discharge home with spouse. The patient will have PT/OT ninety minutes per day, each discipline, five days a week for gait, strengthening, conditioning, balance, ADLs, any patient/family/caregiver training as necessary. Speech therapy to do cognitive assessment and treat as indicated. Rehabilitation nursing to assist with bowel, bladder, skin, wound care, medication administration, pain management. Bread Wrapping Machine Feeder to assist with discharge planning, community reentry. SCD's for DVT prophylaxis. He appears to be well motivated to participate in three hours of therapy a day. He should be able to tolerate three hours of therapy a day from a medical standpoint. He should benefit from the three hours of therapy a day. He has a reasonable discharge plan, reasonable discharge rehabilitation goals and a supportive family. He has various comorbidities that need to be closely monitored with medications and treatments adjusted on a daily basis as needed. These include: acute on chronic Systolic CHF CAD A FIB CKD4 DM 2 Barriers to discharge for this patient who had been independent prior to this are for him to be modified independent to supervision for ADLs and mobility skills prior to discharge home with spouse, so as to lessen the burden of the caregivers. Risks for this patient include: 1. Fall 2. Fracture 3. DVT 4. Pulmonary embolism 5. Worsening CHF 6. Skin breakdown 7. Contractures 8. Poorly controlled pain 9. Urinary retention 10. UTI 11. Respiratory infection 12. Aspiration 13. Recurrent UTI 14. Worsening control of DM 15. Chronic thrombocytopenia 16. Gynecomastia on spironolactone Estimated Length of Stay: 14 days Prognosis: Rehab prognosis appears good for goal of discharge home with spouse modified independent to supervision for ADLs and mobility skills. SINGH REYES MD Nov 14, 2017 12:43 pm
--- NOTE | 2017-11-14 13:05 | ST Cognitive Linguistic Eval ---
Speech Evaluation-General Medical Diagnosis acute heart failure Onset Date: Nov 10, 2017 Therapy Diagnosis Therapy Diagnosis: Cognitive Linguistic Skills WNL Precautions Precautions/Isolations: Fall Prevention, Standard Precautions Referral Referring Physician: Dr. Juan Waters Reason for Referral: Evaluation/Treatment Cognitive Evaluation Medical History Pertinent Medical History: Atrial Fib, CABG, CAD, DM, Dementia, Heart Failure, HTN Reviewed History: Yes Social History Current Living Status: Spouse Speech PLF-Current Status Prior Level of Function The patient (and , present at bedside) denied any challenges with speech, language, or cognition. Subjective The patient was seated upright in recliner, eating lunch upon entrance. The patient greeted the clinician and was agreeable to participation in the cognitive evaluation. Per patient's (with patient confirmation), he does not recall the events immediately surrounding his drive to the hospital, however , does not report any additional memory deficits. Language Eval: Auditory Comprehends Simple Yes/No Ques: Functional Indent/Objects Multiple [place]: Functional Ident/Pics in Multiple [place]: Functional Follows 1-Step Commands: Functional Follows Complex Directions: Functional Follows General Conversations: Functional Language Eval: Verbal Language Completes Spontaneous Greeting: Functional Produces Auto, Serial Info: Functional Imitates Simple Words/Phrases: Functional Word Finding: Mild Requests Basic Needs: Functional States Basic Personal Info: Functional Cognitive Patient Orientation The patient is independently oriented to month, day of week, date, and year. Objective Cognitive Domain Attention: WNL Memory: Mild (Age appropriate.) Problem Solving: Functional Objective Impression The patient demonstrated cognitive linguistic skills grossly within normal limits and appropriate for completion of ADL's. Communication/Social Cognition Comprehension: 6 Expression: 6 Social Interaction: 6 Problem Solvin Memory: 5 Speech Patient Assess Expression of Ideas/Wants: Expression (4) Understanding [place] Content: Understands (4) Brief Interview-Mental Status: Yes Repetition of Three Words: Three (3) Temporal Orientation: Year: Correct (3) Temporal Orientation: Month: Accurate within 5 days(2) Temporal Orientation: Day: Correct (1) Recall : Wear to say "Sock": Yes, no cue required (2) Recall : Color: Yes, no cue required (2) Recall : Bed: Yes,after cueing (1) Speech-Plan Treatment Plan Speech Therapy Treatment Plan: Discontinue ST Evaluation, only. Frequency: Modified Program (IRF) Estimated Hrs Per Day: Other Rehab Potential: Fair Safety Risks/Education Teaching Recipient: Patient, Significant Other Teaching Methods: Discussion Response to Teaching: Verbalize Understanding Education Topics Provided: Results, Recommendations, Plan of Care Time Speech Therapy Time In: 12:20 Speech Therapy Time Out: 12:35 Total Billed Time: 15 Billed Treatment Time 1, ROSA ALVES Nov 14, 2017 13:05
[2017-11-14] MEDS ORDERED: GARL10002 PO (13:37)
[2017-11-14] MEDS ORDERED: METO-387 PO (13:37)
[2017-11-14] MEDS ORDERED: AMIO200T2 PO (13:37)
--- NOTE | 2017-11-14 13:46 | HISTORY AND PHYSICAL ---
DATE OF SERVICE: 11/14/2017 Date of Admission: 11/14/17 CHIEF COMPLAINT: Difficulty with walking. HISTORY OF PRESENT ILLNESS: The patient is a 77-year-old male with multiple medical comorbidities that was admitted to [facility] on 11/10 at [facility] due to increased confusion. He was found to have a UTI associated with severe sepsis. The patient was treated for this and also seen in consultation by cardiology for treatment of acute on chronic systolic congestive heart failure associated with ischemic cardiomyopathy, a large left pleural effusion, coronary artery disease and persistent atrial fibrillation. Medications were adjusted, antibiotics provided, respiratory treatments provided, oxygen provided. The patient was left with general debilitation from this and is referred to inpatient rehabilitation unit. The patient had been modified independent with a walker for the most part prior to this with some assistance from his spouse. Currently, he requires assistance for his ADLs and mobility skills.He is min assist for Gait with walker and min assist for transfers, He is setup for grooming and mod assist for bathing. He is max assist for lower body dressing and Min assist for upper body dressing. PAST MEDICAL HISTORY: Chronic systolic congestive heart failure, ischemic cardiomyopathy with left ventricular ejection fraction 35% to 40%, coronary artery disease, status post CABG x5 at the [facility] in 02/2012, persistent atrial fibrillation with poor ventricular rate control, treated with AVN ablation in mid September 2015 at [facility], status post ablation of atrial flutter at [facility] on 06/09/2015, maintained on Xarelto, history of torsade de pointes, diabetes type 2, chronic kidney disease stage IV, mild to moderate carotid arterial disease by carotid ultrasound in 10/2016, gout in his left hand, tender, gynecomastia, on spironolactone, mild chronic thrombocytopenia, managed by PCP. PAST SURGICAL HISTORY: As per above, CABG, also an ICD implanted on 02/07/2016, upgraded to a DELIMER-D by Dr. Hernández in 09/2015 at [facility]. ALLERGIES: No known medication allergies. FAMILY HISTORY: Noncontributory. SOCIAL HISTORY: Retired, lives with spouse in [place], [place]. His [id number] is Dr. Roper. REVIEW OF SYSTEMS: A 10-point review of systems is significant for some swelling in arms, weakness, shortness of breath, pitting edema in ankles, systolic murmur. MEDICATIONS: Lactulose 10 grams p.o. daily, allopurinol 100 mg p.o. daily, ASA 81 mg p.o. daily, furosemide 80 mg p.o. daily, lisinopril 10 mg p.o. daily, metolazone 5 mg p.o. daily, multivitamins with minerals 1 tablet p.o. daily, KCl 10 mEq p.o. daily, glyburide 2.5 mg p.o. daily, Eliquis 2.5 mg p.o. b.i.d., Coreg 3.125 mg p.o. b.i.d. PHYSICAL EXAMINATION: GENERAL: Significant for a pleasant male sitting in chair, in no acute distress. VITAL SIGNS: He is afebrile, pulse is 80, respirations 16, blood pressure 109/77, O2 sat 96% on room air. HEENT: Vision, speech, hearing are grossly intact. No oral lesion is noted. NECK: Supple without mass. HEART: Regular rhythm. Systolic murmur is appreciated. CHEST: Clear. ABDOMEN: Soft, nontender, bowel sounds present. EXTREMITIES: He has a 1+ pitting edema, both ankles. No calf tenderness. MUSCULOSKELETAL: He has functional active range of motion in all 4 extremities. He has functional strength, both upper limbs. NEUROLOGIC: Cognition appears grossly intact. He is reported to be continent of bowel and bladder. Strength in lower limbs is 4-/5 at the knee, hip flexion and ankle. His coordination is somewhat diminished. His hearing is mildly impaired. He wears glasses for vision. He is min assist for transfers and gait with a front wheel walker.Strength Uppper limbs 3/5. He has generalized edema. SKIN Some weeping associated with edema in arms He has erythema involving the buttocks. IMPRESSION: 1. General debilitation secondary to urinary tract infection associated with sepsis, treated. 2. Acute on chronic systolic congestive heart failure under treatment by Cardiology, associate with generalized edema. 3. Large left pleural effusion seen on CT of the chest on 11/10/2017, improving pulmonary services following. 4. Coronary artery disease with history of coronary artery bypass graft x5. 5. Persistent atrial fibrillation, status post ablation, improved. 6. Status post cardiac resynchronization therapy defibrillator by Dr. Hernández in 09/2015. 7. Diabetes mellitus type 2, controlled with medication. 8. Chronic kidney disease, stage IV, stable. 9. Mild to moderate carotid arterial disease, stable. 10. History of gout, left hand. 11. Tender gynecomastia, on spironolactone. 12. Mild chronic thrombocytopenia. 13. History of torsade de pointes. 14. Hypertension, controlled with medication. PLAN: The patient is admitted to the inpatient rehabilitation unit for a comprehensive program of inpatient rehabilitation with the goal of maximizing level of functional [place] prior to discharge home with spouse. The patient will have PT and OT 90 minutes per day each discipline 5 days a week with plan of care as per post-admission physician evaluation. Please see that separate document for further details. Speech therapy to do cognitive assessment and treat as indicated. Rehabilitation nursing to assist with bowel, bladder, skin care, medication administration. cargo services coordinator to assist with discharge planning, community reentry. Therapy with cardiac and fall precautions. Follow up with [facility] physician and cardiology as per their schedule. Monitor Accu-Cheks and peripheral edema and adjust medications as per PCP and cardiology.Consult DR Jenkins wound care. ESTIMATED LENGTH OF STAY: 14 days. PROGNOSIS: Rehab prognosis appears good for returning to prior level of function, modified independent for ADLs, mobility skills with a wheeled walker with some assistance from family as needed. DIET: Carb consistent. CODE STATUS: Full code. Job ID: [id number] DocumentID: [id number] Dictated Date: 11/14/2017 12:55:17 Shipper/Receiver Date: 11/14/2017 13:45:36 Dictated By: SINGH REYES MD MTDD
--- NOTE | 2017-11-14 14:00 | Physical Therapy Daily Note ---
PT Daily Note-Current Subjective Patient is with OT and agrees to PT cotreat with OT. Pain Numeric Pain Scale: 0-No Pain Location: No Pain Reported Mental Status Patient Orientation: Person, Time, Situation Transfers Functional [place] Measure 0=Not Assessed/NA 4=Minimal Assistance 1=Total Assistance 5=Supervision or Setup 2=Maximal Assistance 6=Modified [place] 3=Moderate Assistance 7=Complete IndependenceIRFPAI Quality Coding Scale 6 Independent with activity with or without an assistive device 5 Patient requires set up or clean up by helper. Patient completes activity by themselves 4 Supervision or touching assist (CGA). [place] provide cues , steadying assist 3 The helper provides less than half the effort to complete the activity 2 The helper provides more than half the effort to complete the activity 1 Dependent. The helper does all the effort to complete an activity 7 Patient refused to complete or attempt activity 9 The patient did not perform the activity before the current illness or injury 88 Not attempted due to Medical conditions or safety concerns Transfers (B, C, W/C) (FIM): 4 Scootin Sit to/from Stand: 4 Sit to Stand (QC): 4 CGA to minimal assist x 5-6 sets with standing LE and UE exercises and balance exercises. PT focused on balance and posture in stand while OT focused on UE exercises. Seated posture also performed during bilateral UE exercises. Weight Bearing Right Lower Extremity: Right Full Weight Bearing Left Lower Extremity: Left Full Weight Bearing Gait Training Does the Patient Walk?: Yes Gait (FIM): 2 Distance (FIM): 9=982-87 ft Distance: 125' Walk 10 feet (QC): 4 Walk 50 ft with 2 Turns(QC): 4 Gait Level of Assist: 4 Gait Persons Needed: 1 Gait Assistive Device: FWW shuffle gait sequence Exercises Seated Therapy Exercises: Ankle pumps, Long arc quads, Hip flexion Seated Reps: 10 (4 sets) Standing: Heel/toe raises, Marching Assessment Patient requires recovery periods secondary to fatigue. Patient continues to be very edematous bilateral LE's and left UE. RN is aware. Patient returned to room and up on recliner with bilateral LE elevated. PT Alf Goals Alf Goals PT Jewel Hole Finish Opener Goals Time Frame: Dec 06, 2017 Transfers (B,C,W/C) (FIM): 6 Sit to Lying (QC): 6 Lying-Sitting on Side/Bed(QC): 6 Sit to Stand (QC): 6 Rollin Roll Left to Right (QC): 6 Chair/Ejd-si-Kdyis Xfer(QC): 6 Car Transfer (QC): 6 Does the Patient Walk: Yes Gait (FIM): 6 Gait distance (FIM): 3=150 ft Distance: 150' Walk 10 feet (QC): 6 Walk 10ft-Uneven Surface(QC): 6 Walk 50ft with 2 Turns (QC): 6 Walk 150 ft (QC): 6 Gait Level of Assist: 6 Gait Assistive Device: FWW Stairs (FIM): 5 # of Steps: 8 1 Step (curb) (QC): 5 4 Steps (QC): 5 12 Steps (QC): 9 Stairs Level Of Assist: 5 Picking up an Object (QC): 5 PT Plan Treatment/Plan Treatment Plan: Continue Plan of Care Treatment Plan: Bed Mobility, Concurrent Therapy, Education, Functional Activity Felecia, Functional Strength, Group Therapy, Gait, Safety, Therapeutic Exercise, Transfers Treatment Duration: Dec 06, 2017 Frequency: At least 5 of 7 days/Wk (IRF) Estimated Hrs Per Day: 1.5 hours per day Patient and/or Family Agrees t: Yes Time/GCodes Time In: 1315 Time Out: 1345 Total Billed Treatment Time: 30 Total Billed Treatment 1 visit FA/EX (25 min cotreat with OT and 5 min GT) ANITA OLVERA PT Nov 14, 2017 14:00
--- NOTE | 2017-11-14 14:48 | Occupational Therapy Eval ---
OT Evaluation-General/PLF Medical Diagnosis Admission Date Nov 14, 2017 at 11:00 Medical Diagnosis: acute heart failure Onset Date: Nov 10, 2017 Therapy Diagnosis Therapy Diagnosis: Weakness Height/Weight Height (Feet): 6 Height (Inches): 0.00 Weight (Pounds): 187 Weight (Ounces): 6.4 Precautions Precautions/Isolations: Fall Prevention, Standard Precautions Weight Bear Status Weight Bearing Restriction: Weight Bearing/Tolerated Referral Physician: Jt Referral Reason: Activity Tolerance, Self Care, Evaluation/Treatment, Strengthening/ROM Medical History Pertinent Medical History: Atrial Fib, CABG, CAD, DM, Dementia, Heart Failure, HTN Additional Medical History Heart valve, non insulin dependent DM Reviewed History: Yes Social History Home: Single Level Current Living Status: Spouse Entry Into Home: Stairs Without Railing Steps Into Home: 3 ADL-Prior Level of Function ADL PLOF Comments Pt. and spouse in room. Spouse answers for pt. States that pt. was able to bathe and dress self previous to getting sick. Uses a walker at home. DME/Equipment: Bath Chair, Tub/Shower OT Current Status Subjective Pt. does not report pain but does report being fatigued after shower. Appearance pt. in chair. Alert but does ask same questions multiple times. Pt. very concerned about missing the [employer] basketball game. Mental Status/Objective Patient Orientation: Person Current Glasses/Contacts: Yes Hand Dominance: Right Upper Extremity ROM WFL Upper Extremity Strength 3/5 bilateral UE strength Edema: Pt. does have edema in bilateral UE. ADL-Treatment Functional [place] Measure 0=Not Assessed/NA 4=Minimal Assistance 1=Total Assistance 5=Supervision or Setup 2=Maximal Assistance 6=Modified [place] 3=Moderate Assistance 7=Complete IndependenceIRFPAI Quality Coding Scale 6 Independent with activity with or without an assistive device 5 Patient requires set up or clean up by helper. Patient completes activity by themselves 4 Supervision or touching assist (CGA). [place] provide cues , steadying assist 3 The helper provides less than half the effort to complete the activity 2 The helper provides more than half the effort to complete the activity 1 Dependent. The helper does all the effort to complete an activity 7 Patient refused to complete or attempt activity 9 The patient did not perform the activity before the current illness or injury 88 Not attempted due to Medical conditions or safety concerns Grooming (FIM): 5 (Pt. able to comb hair with set up.) Bathing (FIM): 3 (Pt. required assist to bathe while seated and assist to stay upright with balance while bathing.) Shower/Bathe Self (QC): 3 Upper Body Dressing (FIM): 4 Upper Body Dressing (QC): 4 Lower Body Dressing (FIM): 2 (Overall, pt. required max assist to don socks, shoes, and pants.) Lower Body Dressing (QC): 2 On/Off Footwear (QC): 2 Transfers (B, C, W/C) (FIM): 4 Shower Transfer (FIM): 4 Other Treatments Pt. demonstrates poor balance and poor endurance at times. Pt. seen for initial evaluation, and then shower. After this, completed partial co-tx with PT due to fatigue. Stood at walker and worked on balance/UE ROM. PT facilitated standing balance while OT facilitated UE strength with dumbbell (2 lb). Completed intermittent bicep flexion/deltoid flexion exercises x 10 reps in all planes while standing. all needs met and PT took pt. back to room. Education OT Patient Education: Exercise program, Modified ADL techniques, Progress toward Goal/Update tx plan, Purpose of tx/functional activities, Reviewed precautions, Rehab process, Transfer techniques Teaching Recipient: Patient Teaching Methods: Demonstration, Discussion Response to Teaching: Verbalize Understanding, Return Demonstration OT Short Term Goals Short Term Goals Time Frame: Nov 28, 2017 Eating(FIM): 5 Grooming(FIM): 5 Bathing(FIM): 3 Upper Body Dressing(FIM): 5 Lower Body Dressing(FIM): 4 Toileting(FIM): 5 Transfers (B,C,W/C) (FIM): 5 Toilet/Commode Transfer(FIM): 5 Shower Transfer(FIM): 4 Additional Short Term Goals: 1-Demonstrate ADL Tasks, 2-Verbalize Understanding , 3-ImproveStrength/Felecia 1=Demonstrate adherence to instructed precautions during ADL tasks. 2=Patient will verbalize/demonstrate understanding of assistive devices/ modifications for ADL. 3=Patient will improve strength/tolerance for activity to enable patient to perform ADL's. OT Nurse Anesthetist Goals Nurse Anesthetist Goals Time Frame: Dec 12, 2017 Eating (FIM): 6 Eating (QC): 6 Groomin Oral Hygiene (QC): 5 Bathing(FIM): 5 Shower/Bathe Self (QC): 5 Upper Body Dressing(FIM): 6 Upper Body Dressing (QC): 6 Lower Body Dressing(FIM): 5 Lower Body Dressing (QC): 5 On/Off Footwear (QC): 5 Toileting(FIM): 6 Toileting Hygiene (QC): 6 Transfers (B,C,W/C) (FIM): 6 Toilet/Commode Transfer(FIM): 6 Toilet/Commode Transfer (QC): 6 Shower Transfer(FIM): 5 Additional Goals: 1-Demonstrate ADL Tasks, 2-Verbalize Understanding, 3- ImproveStrength/Felecia 1=Demonstrate adherence to instructed precautions during ADL tasks. 2=Patient will verbalize/demonstrate understanding of assistive devices/ modifications for ADL. 3=Patient will improve strength/tolerance for activity to enable patient to perform ADL's. OT Education/Plan Problem List/Assessment Assessment: Decreased Activ Tolerance, Dependent Transfers, Impaired Bed Mobility, Impaired Funct Balance, Impaired I ADL's, Impaired Self-Care Skills Discharge Recommendations Plan/Recommendations: Continue POC Therapy D/C Recommendations: Home w/ Family Support, Occupational Therapy Home Care Equpiment Recommendations-D/C: Hip Kit Barriers to Progress Pt. is kyphotic and demonstrates decreased upright balance. Treatment Plan/Plan of Care Treatment,Training & Education: Yes Patient would benefit from OT for education, treatment and training to promote independence in ADL's, mobility, safety and/or upper extremity function for ADL' s. Plan of Care: ADL Retraining, Functional Mobility, UE Funct Exercise/Act Treatment Duration: Dec 12, 2017 Frequency: 5 times per week Estimated Hrs Per Day: 1.5 hours per day Agreement: Yes Rehab Potential: Fair Time/GCodes Start Time: 11:40 Stop Time: 13:40 Total Time Billed (hr/min): 85 Billed Treatment Time 2506-2719 1, EVM 2199-5563 1, ADL x 30minutes, FA x 35minutes (partial co-treat with PT) Please see above note for designated roles. GERMAINE REID OT Nov 14, 2017 14:47
[2017-11-14 16:48] VITALS: BP 115/78
[2017-11-14] MEDS: APIXABAN 2.5 MG (ELIQUIS) TABLET PO SCH (21:13)
[2017-11-14] MEDS: CARVEDILOL 3.125 MG (COREG) TABLET PO SCH (21:13)
[2017-11-15 05:00] VITALS: BP 107/67
[2017-11-15] MEDS: KCL 10 MEQ TAB (MICRO K) PO SCH (07:29)
[2017-11-15] MEDS: glyBURIDE 2.5 MG (MICRONASE) TAB PO SCH (07:29)
[2017-11-15] MEDS: MULTIVIT W/MINERALS TAB (THERAGRAN M) PO SCH (07:29)
[2017-11-15] MEDS: FUROSEMIDE 20 MG (LASIX) TAB PO SCH (08:38)
[2017-11-15] MEDS: APIXABAN 2.5 MG (ELIQUIS) TABLET PO SCH ×2 (08:38→20:26)
[2017-11-15] MEDS: METOLAZONE 5 MG (ZAROXOLYN) TAB PO SCH (08:38)
[2017-11-15] MEDS: lisINopril 10 MG (PRINIVIL) TABLET PO SCH (08:38)
[2017-11-15] MEDS: ALLOPURINOL 100 MG (ZYLOPRIM) TAB PO SCH (08:38)
[2017-11-15] MEDS: ASPIRIN E.C. 81 MG (ECOTRIN) TAB PO SCH (08:38)
[2017-11-15] MEDS: CARVEDILOL 3.125 MG (COREG) TABLET PO SCH ×2 (08:38→20:26)
[2017-11-15] MEDS: LACTULOSE SYRUP 10GM/15ML (ENULOSE) 30ML UDC PO SCH (08:39)
--- NOTE | 2017-11-15 09:29 | Physical Therapy Daily Note ---
PT Daily Note-Current Subjective Patient in bed pre tx, agrees to PT, no complaints of pain. Patient has a lot of swelling in legs, feet, and arms. Appearance Patient BTB post tx with nurse call, phone, tray, all needs met. Mental Status Patient Orientation: Normal For Age Transfers Functional [place] Measure 0=Not Assessed/NA 4=Minimal Assistance 1=Total Assistance 5=Supervision or Setup 2=Maximal Assistance 6=Modified [place] 3=Moderate Assistance 7=Complete IndependenceIRFPAI Quality Coding Scale 6 Independent with activity with or without an assistive device 5 Patient requires set up or clean up by helper. Patient completes activity by themselves 4 Supervision or touching assist (CGA). [place] provide cues , steadying assist 3 The helper provides less than half the effort to complete the activity 2 The helper provides more than half the effort to complete the activity 1 Dependent. The helper does all the effort to complete an activity 7 Patient refused to complete or attempt activity 9 The patient did not perform the activity before the current illness or injury 88 Not attempted due to Medical conditions or safety concerns Transfers (B, C, W/C) (FIM): 3 Scootin Rollin Supine to/from Sit: 3 Sit to/from Stand: 3 Bed to/from Chair: 4 Patient retropulsive upon standing for the first time, had a lot of trouble just sitting up at the edge of the bed. Patient needs cues for positioning during transfers, will let go of walker and turn or not turn completely. Weight Bearing Right Lower Extremity: Right Full Weight Bearing Left Lower Extremity: Left Full Weight Bearing Gait Training Gait (FIM): 4 Distance: 75'x2, 150' Gait Level of Assist: 4 Gait Persons Needed: 1 Gait Assistive Device: FWW slow, slumped, tends to have walker too far out in front Exercises NuStep Minutes: 10 NuStep Workload: 5 Treatments bed mobility and transfers, dressing lowers and socks, ambulation, functional strengthening Assessment Current Status: Fair Progress Patient slow transitioning, stiff, reluctant to move PT Short Term Goals Short Term Goals Transfers (B,C,W/C) (FIM): 5 PT Rehabilitation Coordinator Goals Detention Goals PT Detention Goals Time Frame: Dec 06, 2017 Transfers (B,C,W/C) (FIM): 6 Sit to Lying (QC): 6 Lying-Sitting on Side/Bed(QC): 6 Sit to Stand (QC): 6 Rollin Roll Left to Right (QC): 6 Chair/Gpf-bx-Vhvsl Xfer(QC): 6 Car Transfer (QC): 6 Does the Patient Walk: Yes Gait (FIM): 6 Gait distance (FIM): 3=150 ft Distance: 150' Walk 10 feet (QC): 6 Walk 10ft-Uneven Surface(QC): 6 Walk 50ft with 2 Turns (QC): 6 Walk 150 ft (QC): 6 Gait Level of Assist: 6 Gait Assistive Device: FWW Stairs (FIM): 5 # of Steps: 8 1 Step (curb) (QC): 5 4 Steps (QC): 5 12 Steps (QC): 9 Stairs Level Of Assist: 5 Picking up an Object (QC): 5 PT Plan Problem List Problem List: Activity Tolerance, Functional Strength, Safety, Balance, Gait, Transfer, Bed Mobility, ROM Treatment/Plan Treatment Plan: Continue Plan of Care Treatment Plan: Bed Mobility, Concurrent Therapy, Education, Functional Activity Felecia, Functional Strength, Group Therapy, Gait, Safety, Therapeutic Exercise, Transfers Treatment Duration: Dec 06, 2017 Frequency: At least 5 of 7 days/Wk (IRF) Estimated Hrs Per Day: 1.5 hours per day Patient and/or Family Agrees t: Yes Safety Risks/Education Patient Education: Gait Training, Transfer Techniques, Correct Positioning, Safety Issues Teaching Recipient: Patient Teaching Methods: Demonstration, Discussion Response to Teaching: Reinforcement Needed Time/GCodes Time In: 845 Time Out: 930 Total Billed Treatment Time: 45 Total Billed Treatment 1 visit EX 10' GT 20' FA 15' FLETCHER BEDOYA PT Nov 15, 2017 09:29
--- NOTE | 2017-11-15 09:34 | PM & R (SOAP) Progress Note ---
Subjective Time Seen by Provider: 08:45 Subjective/Events-last exam Patient was seen in his room this AM Patient Min asdsist for transfers Discussed with RN from power and recovery shift engineer and todays day shift Patient up much of night toileting mostlikely due to diuresing with Lasix Peripheral edema improving No accucheks ordered will order BID as patient on meds for DM Review of Systems Cardiovascular: Edema Genitourinary: Frequency Objective Exam Last Set of Vital Signs Vital Signs Date Time Temp Pulse Resp B/P (MAP) Pulse Ox O2 Delivery O2 Flow Rate FiO2 11/15/17 05:00 97.4 80 16 107/67 (80) 95 Room Air Capillary Refill : I&O Intake and Output 11/15/17 00:00 Intake Total 1180 ml Balance 1180 ml Intake Oral 1180 ml # Voids 1 Daily Weight Change No General: Alert, Oriented X3, Cooperative, No Acute Distress HEENT: Atraumatic, PERRLA, EOMI, Mucous Memb Moist/[place] Neck: Supple, No JVD Lungs: Clear to Auscultation Heart: Regular Rate Abdomen: Normal Bowel Sounds, Soft, No Tenderness Extremities: Other (edema decreasing) Neuro: Other (generalized weakness) Assessment/Plan Assessment General debil secondary to UTI with sepsis treated Nocturia most likely related diuresis Acute on chronic Systolic CHF being followed by Cardiology A FIB being followed by Cardiology DM2 being followed by [facility] Accuchecks ordered Mild chronic thrombocytopenia HTN controlled 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 SINGH REYES MD Nov 15, 2017 09:34
--- NOTE | 2017-11-15 11:47 | Consultation (CHS) ---
HPI History of Present Illness: Here for Medical consult while patient is on Rehab. No acute concerns today. Source: patient Exam Limitations: no limitations Date seen by provider: Nov 15, 2017 Time Seen by Provider: 11:45 Attending Physician Juan Waters MD PCP Nidhi Roper DO Consult Date of Admission Nov 14, 2017 at 11:00 Home Medications Home Medications Reviewed patient Home Medication Reconciliation performed by pharmacy medication reconciliations aviation technician aircraft and/or nursing. Patients Allergies have been reviewed. Allergies Coded Allergies: No Known Drug Allergies (Unverified , 04/17/15) [id number] Hx Patient Social History Living Status: Living at home with Alcohol Use: Denies Use Recreational Drug Use: No Recent Foreign Travel: No Contact w/other who traveled: No Recent Hopitalizations: Yes Recent Infectious Disease Expo: No Physical Abuse Screen: No Sexual Abuse: No Immunizations Up To Date Tetanus Booster (TDap): Unknown Date of Pneumonia Vaccine: Jun 02, 2017 Date of Influenza Vaccine: Jun 05, 2017 Past Medical History Chronic Systolic CHF EF 20% 2017 Elevated LFTs Chronic Atrial fibrillation s/p ablation Diabetes PVD CAD s/p 5x bypass Family Medical History Significant Family History: Cancer, Hypertension Family History: Patient reports no known family medical history. Review of Systems ([facility]) Constitutional: malaise, weakness EENTM: no symptoms reported, No nose congestion Respiratory: No cough, dyspnea on exertion, No orthopnea, No short of breath Cardiovascular: No chest pain, edema, No palpitations Gastrointestinal: no symptoms reported, No abdominal pain, No constipation, No diarrhea, No nausea, No vomiting Genitourinary: no symptoms reported, No dysuria, No frequency, No hematuria Musculoskeletal: back pain, joint pain, muscle pain, muscle weakness Skin: no symptoms reported Psychiatric/Neurological: No Symptoms Reported Physical Exam-([facility]) Physical Exam Vital Signs VS - Last 72 Hours, by Label 11/14/17 11/14/17 11/14/17 11/15/17 10:40 12:15 16:48 05:00 Temp 97.5 97.8 97.4 Pulse 84 80 80 Resp 22 17 16 B/P (MAP) 124/72 (89) 115/78 (90) 107/67 (80) Pulse Ox 97 92 95 O2 Delivery Room Air Room Air Room Air Room Air Capillary Refill : General Appearance: WD/WN, no apparent distress HEENT: PERRL/EOMI Neck: non-tender, full range of motion Respiratory: chest non-tender, lungs clear, normal breath sounds, no respiratory distress, no accessory muscle use Cardiovascular: regular rate, rhythm, no murmur Gastrointestinal: normal bowel sounds, non tender, soft Back: no vertebral tenderness Extremities: no calf tenderness, pedal edema (3+ bilaterally with hemociderin deposition) Neurologic/Psychiatric: bariatric surgeon II-XII nml as tested, no motor/sensory deficits, alert, normal mood/affect, oriented x 3 Lymphatic: no adenopathy Assessment/Plan Assessment/Plan (1) Non-insulin dependent type 2 diabetes mellitus Status: Chronic Assessment & Plan: - Continue home meds, ADA diet (2) CKD (chronic kidney disease), stage IV Status: Chronic Assessment & Plan: - At baseline (3) Elevated liver enzymes Status: Chronic (4) Cardiomyopathy Status: Chronic Qualifiers: Qualified Codes: I25.5 - Ischemic cardiomyopathy (5) Acute on chronic combined systolic and diastolic CHF (congestive heart failure) Status: Acute Assessment & Plan: - Continue PO diuresis (6) LIMITATION OF ACTIVITIES DUE TO DISABILITY Status: Acute (7) Pleural effusion Status: Acute (8) UTI (urinary tract infection) Status: Resolved Assessment & Plan: - Culture neg, completed 3 days of antibiotics (9) Chronic atrial fibrillation Status: Chronic Assessment & Plan: Rate controlled, continue PO anticoagulation (10) Increased ammonia level Status: Acute Assessment & Plan: - Daily lactulose Clinical Quality Measures DVT/VTE Risk/Contraindication: Risk Factor Score Per Nursin RFS Level Per Nursing on Admit: 2=Moderate Copy Copies To 1: Amanda watts HOLLY R MD Nov 15, 2017 11:47
--- NOTE | 2017-11-15 12:40 | Occupational Ther Daily Note ---
OT Current Status-Daily Note Subjective Pt asleep in bed, woke to name. Pt agreed to therapy. No c/o pain. Weeping at inner L elbow, nrsg notified. Mental Status/Objective Patient Orientation: Person, Place, Time, Situation Functional [place] Measure 0=Not Assessed/NA 4=Minimal Assistance 1=Total Assistance 5=Supervision or Setup 2=Maximal Assistance 6=Modified [place] 3=Moderate Assistance 7=Complete [place] ADL-Treatment Pt declined shower or sponge bath. Also declined changing clothes. Pt required mod A to go from supine to sitting then assist to sit on EOB due to leaning backwards. Pt was able to go from sit to standing with min A then transferred from bed to recliner using FWW with min A. Nrsg came in to look at edema of L elbow. Assist to don socks and shoes. Pt then ambulated to therapy gym with 1 recovery break. Pt completed UE and fine motor tasks to increase strength and activity tolerance for daily functional tasks. Pt took increased time to complete each tasks. Pt then ambulated back to room and laid down in bed with min A. Mod A for bed mobility. After therapy, pt lying in bed with call light/phone in reach. All needs met in room. Functional [place] Measure 0=Not Assessed/NA 4=Minimal Assistance 1=Total Assistance 5=Supervision or Setup 2=Maximal Assistance 6=Modified [place] 3=Moderate Assistance 7=Complete IndependenceIRFPAI Quality Coding Scale 6 Independent with activity with or without an assistive device 5 Patient requires set up or clean up by helper. Patient completes activity by themselves 4 Supervision or touching assist (CGA). [place] provide cues , steadying assist 3 The helper provides less than half the effort to complete the activity 2 The helper provides more than half the effort to complete the activity 1 Dependent. The helper does all the effort to complete an activity 7 Patient refused to complete or attempt activity 9 The patient did not perform the activity before the current illness or injury 88 Not attempted due to Medical conditions or safety concerns On/Off Footwear (QC): 2 OT Short Term Goals Short Term Goals Time Frame: Nov 28, 2017 Eating(FIM): 5 Grooming(FIM): 5 Bathing(FIM): 3 Upper Body Dressing(FIM): 5 Lower Body Dressing(FIM): 4 Toileting(FIM): 5 Transfers (B,C,W/C) (FIM): 5 Toilet/Commode Transfer(FIM): 5 Shower Transfer(FIM): 4 Additional Short Term Goals: 1-Demonstrate ADL Tasks, 2-Verbalize Understanding , 3-ImproveStrength/Felecia 1=Demonstrate adherence to instructed precautions during ADL tasks. 2=Patient will verbalize/demonstrate understanding of assistive devices/ modifications for ADL. 3=Patient will improve strength/tolerance for activity to enable patient to perform ADL's. OT Solar Mechanical Engineer Goals Long-Term Goals Time Frame: Dec 12, 2017 Eating (FIM): 6 Eating (QC): 6 Groomin Oral Hygiene (QC): 5 Bathing(FIM): 5 Shower/Bathe Self (QC): 5 Upper Body Dressing(FIM): 6 Upper Body Dressing (QC): 6 Lower Body Dressing(FIM): 5 Lower Body Dressing (QC): 5 On/Off Footwear (QC): 5 Toileting(FIM): 6 Toileting Hygiene (QC): 6 Transfers (B,C,W/C) (FIM): 6 Toilet/Commode Transfer(FIM): 6 Toilet/Commode Transfer (QC): 6 Shower Transfer(FIM): 5 Additional Goals: 1-Demonstrate ADL Tasks, 2-Verbalize Understanding, 3- ImproveStrength/Felecia 1=Demonstrate adherence to instructed precautions during ADL tasks. 2=Patient will verbalize/demonstrate understanding of assistive devices/ modifications for ADL. 3=Patient will improve strength/tolerance for activity to enable patient to perform ADL's. OT Education/Plan Discharge Recommendations Plan/Recommendations: Continue POC Treatment Plan/Plan of Care Patient would benefit from OT for education, treatment and training to promote independence in ADL's, mobility, safety and/or upper extremity function for ADL' s. Plan of Care: ADL Retraining, Functional Mobility, UE Funct Exercise/Act Treatment Duration: Dec 12, 2017 Frequency: 5 times per week Estimated Hrs Per Day: 1.5 hours per day Agreement: Yes Rehab Potential: Fair Time/GCodes Start Time: 10:00 Stop Time: 11:00 Total Time Billed (hr/min): 60 Billed Treatment Time 1 visit-FA 2 (30 min) EX 2 (30 min) LAMBERT BRITO Nov 15, 2017 12:40
--- NOTE | 2017-11-15 14:38 | Therapy Group Daily Note ---
Therapy Daily Group Note Other/Notes Each patient participated in group therapy in the common area of rehab. Each patient ambulated or was transported to the common area and everyone sat in a [place]. Each patient then had to introduce themselves, state where they were from and answer a question that involved memory and critical thinking. The group was oriented to rehab due to having a lot of new patients and each discipline was explained and the their daily rehab schedule. Then the group was educated, with encouraged patient interaction, about the senses and changes with aging and injury. Home safety and driving was also covered. Interaction between patients and therapist and other patients was encouraged. Patient performed a stereoagnosis activity at the end of therapy. Each patient then ambulated or was transported back to their room and placed in chair or bed with nurse call, phone, all needs met. Start Time: 13:00 Stop Time: 14:15 Total Billed Treatment Time: 75 Total Billed Treatment 1 visit GRP 75' FLETCHER BEDOYA PT Nov 15, 2017 14:38
--- NOTE | 2017-11-15 14:54 | Therapy Group Daily Note ---
Therapy Daily Group Note Patient Education Topic Other List Below LAMBERT BRITO Nov 15, 2017 14:54
--- NOTE | 2017-11-15 15:37 | Wound Care Assessment ---
Wound Care Assessment Date Seen by Provider: Nov 15, 2017 Time Seen by Provider: 15:15 Chief Complaint R leg ulcers, bilateral buttock ulcers. HPI 77 year old male with debility and ulcers of R anterior calf and bilateral buttock excoriations. Is incontinent of stool and urine. Has moderate lymphedema. Past Medical History: Admits Diabetes Type II, Admits Heart Disease, Admits Myocardial Infarction, Admits Peripheral Artery Disease Pacemaker Recreational Drug Use: No Alcohol Use: Denies Use Review of Systems Pulmonary: No Dyspnea Cardiovascular: No: Chest Pain Exam Vital Signs Date Time Temp Pulse Resp B/P (MAP) Pulse Ox O2 Delivery O2 Flow Rate FiO2 11/15/17 05:00 97.4 80 16 107/67 (80) 95 Room Air Capillary Refill : General Appearance: no apparent distress Respiratory: no respiratory distress Skin: other (R anterior calf -- cluster of 3 wounds, largest is 4.5 x 4.0 x 0.1 cm, 75% regenerating tissue, 25% slough, drainage, large serous.) Assessment/Plan/Dx 1. Venous insufficiency ulcer, R calf, full thickness. 2. Congestive heart failure. 3. Lymphedema. 4. Diabetes. Plan: Xeroform/Kerlix/Nicola dressings daily. The patient is encouraged to elevate his legs. YOLANDA GRIGGS MD Nov 15, 2017 15:37
[2017-11-15 18:20] VITALS: BP 109/70
[2017-11-15] MEDS: ZINC OXIDE 16% OINT (BUTT PASTE) 113 GM TUBE TOP SCH (21:22)
[2017-11-16 05:15] VITALS: BP 98/63
[2017-11-16] MEDS: MULTIVIT W/MINERALS TAB (THERAGRAN M) PO SCH (06:13)
[2017-11-16] MEDS: glyBURIDE 2.5 MG (MICRONASE) TAB PO SCH (06:13)
[2017-11-16] MEDS: KCL 10 MEQ TAB (MICRO K) PO SCH (06:13)
[2017-11-16] MEDS: lisINopril 10 MG (PRINIVIL) TABLET PO SCH (08:07)
[2017-11-16] MEDS: METOLAZONE 5 MG (ZAROXOLYN) TAB PO SCH (08:08)
[2017-11-16] MEDS: FUROSEMIDE 20 MG (LASIX) TAB PO SCH (08:08)
[2017-11-16] MEDS: ASPIRIN E.C. 81 MG (ECOTRIN) TAB PO SCH (08:08)
[2017-11-16] MEDS: CARVEDILOL 3.125 MG (COREG) TABLET PO SCH ×2 (08:08→20:06)
[2017-11-16] MEDS: ALLOPURINOL 100 MG (ZYLOPRIM) TAB PO SCH (08:08)
[2017-11-16] MEDS: APIXABAN 2.5 MG (ELIQUIS) TABLET PO SCH ×2 (08:08→20:06)
[2017-11-16] MEDS: ZINC OXIDE 16% OINT (BUTT PASTE) 113 GM TUBE TOP SCH ×3 (08:09→20:06)
[2017-11-16] MEDS: LACTULOSE SYRUP 10GM/15ML (ENULOSE) 30ML UDC PO SCH (08:09)
--- NOTE | 2017-11-16 11:19 | Cardiology Progress Note ---
Subjective Date Seen by Provider: Nov 16, 2017 Time Seen by Provider: 11:13 Subjective/Events-last exam Mr. Roper is a 77 years old gentleman with history of congestive heart failure, has been seen by Dr. Montes De Oca and was transferred to acute rehabilitation. I was called to evaluate him today. Upon my evaluation he was sitting in a chair, comfortable, reporting shortness of breath and pedal edema. Denied any chest pain, still complaining of generalized weakness and loss of energy. He denied any fever or chills. No palpitation or syncope Review of Systems General: No Chills, No Night Sweats, Fatigue, Malaise, No Appetite, No Other HEENT: No Head Aches, No Visual Changes, No Eye Pain, No Ear Pain, No Dysphasia , No Sinus Congestion, No Post Nasal Drip, No Sore Throat, No Other Pulmonary: Dyspnea, No Cough, No Pleuritic Chest Pain, No Other Cardiovascular: Edema, No: Chest Pain, Palpitations, Orthopnea, Paroxysmal Noc. Dyspnea, Lt Headedness, Other Gastrointestinal: No: Nausea, Vomiting, Abdominal Pain, Diarrhea, Constipation , Melena, Hematochezia, Other Objective-Cardiology Exam Last Set of Vital Signs Vital Signs 11/16/17 05:15 Temp 97.0 Pulse 80 Resp 18 B/P (MAP) 98/63 (75) Pulse Ox 95 O2 Delivery Room Air Capillary Refill : I&O Intake and Output 11/16/17 00:00 Intake Total 1765 ml Output Total 900 ml Balance 865 ml Intake Oral 1765 ml Output Urine Total 900 ml # Voids 4 # Bowel Movements 3 General: Alert, Oriented X3, Cooperative, No Acute Distress HEENT: Atraumatic, PERRLA, EOMI, Mucous Memb Moist/[place] Neck: Supple, No JVD Lungs: Clear to Auscultation Heart: Regular Rate, Normal S1, Normal S2, Other (S3 is present) Abdomen: Normal Bowel Sounds, Soft, No Tenderness Extremities: No Clubbing, No Cyanosis, Other (+3 pedal edema, upper extremities edema) Skin: Other (Chronic venous stasis changes) Neuro: Normal Speech, Normal Tone, Sensation Intact, Other (generalized weakness) Psych/Mental Status: Mental Status NL Results Lab Laboratory Tests Test 11/15/17 16:17 11/16/17 05:09 Range/Units Glucometer 78 71 70-110 MG/DL A/P-Cardiology Admission Diagnosis Debility Congestive heart failure Coronary artery disease Chronic renal insufficiency Assessment/Plan Debility, generalized weakness, Secondary to congestive heart failure and coronary artery disease receiving physical therapy Congestive heart failure, acute on chronic left ventricular systolic dysfunction , ischemic cardiomyopathy, last evaluation estimated ejection fraction 15-20 percent. Still receiving aggressive diuresis. He is maintained on beta blockers and Zestril. I will discontinue JIM inhibitor, patient received the last dose on November 16, 2017, planning to start Entresto on November 18, 2017 in the evening and monitor his tolerance and response closely. Large left pleural effusion seen on CT of the chest of 11-10-17 and CXR of , continue to monitor at this time. Peripheral edema, chronic venous stasis, continue with aggressive diuretics and monitor electrolytes closely, monitor renal function closely CAD with history of CABGx5 at the [facility] February 2012. Details of CABG unavailable. MPI of 05/19/15 did not show ischemia or infarction but there was LV enlargement and LVEF was 22%, no active chest pain. Continue to monitor Persistent a fib with poor vent rate control, treated with AVN ablation in mid Sep 2015 at [facility] by Dr Hernández. S/P ablation for atrial flutter by Dr. Hernández at [facility] by Dr. Hernández on 06/09/15, maintained on Xarelto. Monitor heart rate. No changes are recommended S/p single ch ICD implanted on 02/07/16, upgraded to RADIO INTERFERENCE TROUBLE SHOOTER-D by Dr Hernández in Sep 2015 , functioning normally on interrogation of June 2017, no changes are recommended Elevated bilirubin, indicative of jaundice of unknown etiology, continue to monitor. Hypertension, currently borderline hypotensive. Continue to monitor with continued diuretics and monitor closely. Chronic renal insufficiency, chronic kidney disease stage IV, monitor renal function closely. 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
--- NOTE | 2017-11-16 11:51 | Physical Therapy Daily Note ---
PT Daily Note-Current Subjective Pt. up in recliner. Pillows beneath him damp from weaping LEs and UEs. Agrees to Rx. Wants to stand to use urinal Pain Numeric Pain Scale: 0-No Pain Transfers Functional [place] Measure 0=Not Assessed/NA 4=Minimal Assistance 1=Total Assistance 5=Supervision or Setup 2=Maximal Assistance 6=Modified [place] 3=Moderate Assistance 7=Complete IndependenceIRFPAI Quality Coding Scale 6 Independent with activity with or without an assistive device 5 Patient requires set up or clean up by helper. Patient completes activity by themselves 4 Supervision or touching assist (CGA). [place] provide cues , steadying assist 3 The helper provides less than half the effort to complete the activity 2 The helper provides more than half the effort to complete the activity 1 Dependent. The helper does all the effort to complete an activity 7 Patient refused to complete or attempt activity 9 The patient did not perform the activity before the current illness or injury 88 Not attempted due to Medical conditions or safety concerns Transfers (B, C, W/C) (FIM): 4 Scootin Sit to/from Stand: 4 Bed to/from Chair: 4 Weight Bearing Right Lower Extremity: Right Full Weight Bearing Left Lower Extremity: Left Full Weight Bearing Gait Training Does the Patient Walk?: Yes Gait (FIM): 3 Distance (FIM): 3=150 ft Gait Level of Assist: 4 Gait Persons Needed: 1 Gait Assistive Device: FWW slow, rests in chair Exercises Seated Therapy Exercises: Ankle pumps, Sit to stand, Long arc quads, Hip flexion Seated Reps: 8 Treatments stood with min to mod assist to manage use of urinal managing pants up down and balance. Stats he likes to be up in recliner but it hurts his bottom to be up , this STUDENT RECORDS SPECIALIST explaining reclining in chair and use of pillows as well as adjusting in chair for less wt bearing etc Assessment Current Status: Good Progress PT Short Term Goals Short Term Goals Transfers (B,C,W/C) (FIM): 5 PT Puppet Master Goals Custodial Goals PT Puppet Master Goals Time Frame: Dec 06, 2017 Transfers (B,C,W/C) (FIM): 6 Sit to Lying (QC): 6 Lying-Sitting on Side/Bed(QC): 6 Sit to Stand (QC): 6 Rollin Roll Left to Right (QC): 6 Chair/Zyz-fc-Eakjr Xfer(QC): 6 Car Transfer (QC): 6 Does the Patient Walk: Yes Gait (FIM): 6 Gait distance (FIM): 3=150 ft Distance: 150' Walk 10 feet (QC): 6 Walk 10ft-Uneven Surface(QC): 6 Walk 50ft with 2 Turns (QC): 6 Walk 150 ft (QC): 6 Gait Level of Assist: 6 Gait Assistive Device: FWW Stairs (FIM): 5 # of Steps: 8 1 Step (curb) (QC): 5 4 Steps (QC): 5 12 Steps (QC): 9 Stairs Level Of Assist: 5 Picking up an Object (QC): 5 PT Plan Treatment/Plan Treatment Plan: Continue Plan of Care Treatment Plan: Bed Mobility, Concurrent Therapy, Education, Functional Activity Felecia, Functional Strength, Group Therapy, Gait, Safety, Therapeutic Exercise, Transfers Treatment Duration: Dec 06, 2017 Frequency: At least 5 of 7 days/Wk (IRF) Estimated Hrs Per Day: 1.5 hours per day Patient and/or Family Agrees t: Yes Safety Risks/Education Patient Education: Gait Training, Transfer Techniques Teaching Recipient: Patient Teaching Methods: Demonstration, Discussion Response to Teaching: Verbalize Understanding, Return Demonstration, Reinforcement Needed Time/GCodes Time In: 1035 Time Out: 1100 Total Billed Treatment Time: 25 Total Billed Treatment 1,FA25m G Codes Necessary: NAN Nicole PTA Nov 16, 2017 11:51
--- NOTE | 2017-11-16 15:00 | Diagnostic Imaging Report ---
INDICATION: Peripheral arterial disease. FINDINGS: Resting ankle-brachial indices are greater than one bilaterally. IMPRESSION: Unremarkable screening study with normal ankle-brachial indices. Dictated by: Dictated on workstation # [id number]
[2017-11-16 17:52] VITALS: BP 93/51
[2017-11-17 05:49] VITALS: BP 112/71
[2017-11-17 05:54] LABS: HEMOGLOBIN 14.9 G/DL (13.3-17.7); MEAN PLATELET VOLUME 10.5 FL (7.4-10.4); RED BLOOD COUNT 5.02 10^6/uL (4.35-5.85); RED CELL DISTRIBUTION WIDTH 19.1 % (10.0-14.5); WHITE BLOOD COUNT 8.5 10^3/uL (4.3-11.0)
[2017-11-17] MEDS: MULTIVIT W/MINERALS TAB (THERAGRAN M) PO SCH (06:03)
[2017-11-17] MEDS: KCL 10 MEQ TAB (MICRO K) PO SCH (06:03)
[2017-11-17] MEDS: glyBURIDE 2.5 MG (MICRONASE) TAB PO SCH (06:03)
[2017-11-17 06:33] LABS: ALANINE AMINOTRANSFERASE 22 U/L (0-55); ALBUMIN 2.8 GM/DL (3.2-4.5); ALKALINE PHOSPHATASE 133 U/L (40-136); BILIRUBIN,TOTAL 3.5 MG/DL (0.1-1.0); BUN/CREATININE RATIO 30; CALCIUM 8.6 MG/DL (8.5-10.1); CARBON DIOXIDE 24 MMOL/L (21-32); CHLORIDE 97 MMOL/L (98-107); CREATININE SERUM 0.83 MG/DL (0.60-1.30); GFR ESTIMATED > 60; GLUCOSE 118 MG/DL (70-105); POTASSIUM 3.5 MMOL/L (3.6-5.0); SODIUM 133 MMOL/L (135-145); TOTAL PROTEIN 6.2 GM/DL (6.4-8.2)
[2017-11-17 08:29] VITALS: BP 116/70
[2017-11-17] MEDS: FUROSEMIDE 20 MG (LASIX) TAB PO SCH (08:30)
[2017-11-17] MEDS: METOLAZONE 5 MG (ZAROXOLYN) TAB PO SCH (08:30)
[2017-11-17] MEDS: ASPIRIN E.C. 81 MG (ECOTRIN) TAB PO SCH (08:30)
[2017-11-17] MEDS: CARVEDILOL 3.125 MG (COREG) TABLET PO SCH ×2 (08:30→19:51)
[2017-11-17] MEDS: ALLOPURINOL 100 MG (ZYLOPRIM) TAB PO SCH (08:30)
[2017-11-17] MEDS: APIXABAN 2.5 MG (ELIQUIS) TABLET PO SCH ×2 (08:30→19:50)
[2017-11-17] MEDS: LACTULOSE SYRUP 10GM/15ML (ENULOSE) 30ML UDC PO SCH (08:31)
[2017-11-17] MEDS: ZINC OXIDE 16% OINT (BUTT PASTE) 113 GM TUBE TOP SCH ×3 (08:31→19:51)
--- NOTE | 2017-11-17 09:46 | Cardiology Progress Note ---
Subjective Date Seen by Provider: Nov 17, 2017 Time Seen by Provider: 09:45 Subjective/Events-last exam Patient is laying down in bed, feeling better, breathing better, edema slightly better. Denied any chest pain. Review of Systems General: No Chills, No Night Sweats, No Fatigue, No Malaise, No Appetite, No Other HEENT: No Head Aches, No Visual Changes, No Eye Pain, No Ear Pain, No Dysphasia , No Sinus Congestion, No Post Nasal Drip, No Sore Throat, No Other Pulmonary: Dyspnea, No Cough, No Pleuritic Chest Pain, No Other Cardiovascular: Edema, No: Chest Pain, Palpitations, Orthopnea, Paroxysmal Noc. Dyspnea, Lt Headedness, Other Objective-Cardiology Exam Last Set of Vital Signs Vital Signs 11/17/17 11/17/17 05:49 08:29 Temp 98.1 Pulse 73 Resp 18 B/P (MAP) 116/70 (85) Pulse Ox 96 O2 Delivery Room Air Capillary Refill : I&O Intake and Output 11/17/17 00:00 Intake Total 1050 ml Output Total 775 ml Balance 275 ml Intake Oral 1050 ml Output Urine Total 775 ml # Voids 4 # Bowel Movements 1 General: Alert, Oriented X3, Cooperative, No Acute Distress HEENT: Atraumatic, PERRLA, EOMI, Mucous Memb Moist/[place] Neck: Supple, No JVD Lungs: Clear to Auscultation Heart: Regular Rate, Normal S1, Normal S2, Other (S3 is present) Abdomen: Normal Bowel Sounds, Soft, No Tenderness Extremities: No Clubbing, No Cyanosis, Other (+3 pedal edema, upper extremities edema) Skin: Other (Chronic venous stasis changes) Neuro: Normal Speech, Normal Tone, Sensation Intact, Other (generalized weakness) Psych/Mental Status: Mental Status NL Results Lab Laboratory Tests 11/17/17 05:10 A/P-Cardiology Admission Diagnosis Debility Congestive heart failure Coronary artery disease Chronic renal insufficiency Assessment/Plan Debility, generalized weakness, Secondary to congestive heart failure and coronary artery disease receiving physical therapy, continue to monitor, no changes are recommended Congestive heart failure, acute on chronic left ventricular systolic dysfunction , ischemic cardiomyopathy, last evaluation estimated ejection fraction 15-20 percent. Still receiving aggressive diuresis. He is maintained on beta blockers and Zestril. I will discontinue JIM inhibitor, patient received the last dose on November 16, 2017, planning to start Entresto on November 18, 2017 in the evening and monitor his tolerance and response closely. Large left pleural effusion seen on CT of the chest of 11-10-17 and CXR of , continue to monitor, followed and managed by primary care physician Peripheral edema, chronic venous stasis, continue with aggressive diuretics and monitor electrolytes closely, monitor renal function closely CAD with history of CABGx5 at the [facility] February 2012. Details of CABG unavailable. MPI of 05/19/15 did not show ischemia or infarction but there was LV enlargement and LVEF was 22%, no active chest pain. Continue to monitor Persistent a fib with poor vent rate control, treated with AVN ablation in mid Sep 2015 at [facility] by Dr Hernández. S/P ablation for atrial flutter by Dr. Hernández at [facility] by Dr. Hernández on 06/09/15, maintained on Xarelto. Monitor heart rate. No changes are recommended S/p single ch ICD implanted on 02/07/16, upgraded to VIDEOGAME TESTER-D by Dr Hernández in Sep 2015 , functioning normally on interrogation of June 2017, no changes are recommended Elevated bilirubin, indicative of jaundice of unknown etiology, continue to monitor. Hypertension, currently borderline hypotensive. Continue to monitor with continued diuretics and monitor closely. Chronic renal insufficiency, chronic kidney disease stage IV, monitor renal function closely. 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
[2017-11-17 17:13] VITALS: BP 108/75
[2017-11-18 05:07] VITALS: BP 101/66
[2017-11-18] MEDS: glyBURIDE 2.5 MG (MICRONASE) TAB PO SCH (06:03)
[2017-11-18] MEDS: MULTIVIT W/MINERALS TAB (THERAGRAN M) PO SCH (06:03)
[2017-11-18] MEDS: KCL 10 MEQ TAB (MICRO K) PO SCH (06:03)
[2017-11-18] MEDS: CARVEDILOL 3.125 MG (COREG) TABLET PO SCH ×2 (08:00→20:34)
[2017-11-18] MEDS: APIXABAN 2.5 MG (ELIQUIS) TABLET PO SCH ×2 (08:00→20:34)
[2017-11-18] MEDS: LACTULOSE SYRUP 10GM/15ML (ENULOSE) 30ML UDC PO SCH (08:00)
[2017-11-18] MEDS: ALLOPURINOL 100 MG (ZYLOPRIM) TAB PO SCH (08:00)
[2017-11-18] MEDS: METOLAZONE 5 MG (ZAROXOLYN) TAB PO SCH (08:00)
[2017-11-18] MEDS: ASPIRIN E.C. 81 MG (ECOTRIN) TAB PO SCH (08:00)
[2017-11-18] MEDS: FUROSEMIDE 20 MG (LASIX) TAB PO SCH (08:00)
[2017-11-18] MEDS: ZINC OXIDE 16% OINT (BUTT PASTE) 113 GM TUBE TOP SCH ×3 (08:01→20:35)
--- NOTE | 2017-11-18 08:32 | Cardiology Progress Note ---
Subjective Date Seen by Provider: Nov 18, 2017 Time Seen by Provider: 08:30 Subjective/Events-last exam Patient in bed, no new complaints. Denies any CP or dyspnea. Review of Systems General: No Night Sweats, No Fatigue, No Malaise HEENT: No Visual Changes, No Dysphasia, No Sore Throat Pulmonary: No Dyspnea, No Cough Cardiovascular: No: Chest Pain, Palpitations, Orthopnea Gastrointestinal: No: Nausea, Vomiting, Abdominal Pain Genitourinary: No Dysuria, No Frequency Musculoskeletal: No: neck pain, back pain Neurological: Weakness, No: Numbness, Change in speech, Confusion Objective-Cardiology Exam Last Set of Vital Signs Vital Signs 11/18/17 05:07 Temp 97.9 Pulse 79 Resp 18 B/P (MAP) 101/66 (78) Pulse Ox 95 O2 Delivery Room Air Capillary Refill : I&O Intake and Output 11/18/17 00:00 Intake Total 1155 ml Output Total 2550 ml Balance -1395 ml Intake Oral 1155 ml Output Urine Total 2550 ml General: Alert, Oriented X3, Cooperative, No Acute Distress HEENT: Atraumatic, PERRLA, EOMI, Mucous Memb Moist/[place] Neck: Supple, No JVD Lungs: Clear to Auscultation Heart: Regular Rate, Normal S1, Normal S2, Other (S3 is present) Abdomen: Normal Bowel Sounds, Soft, No Tenderness Extremities: No Clubbing, No Cyanosis, Other (+2 pedal edema, upper extremities edema) Skin: Other (Chronic venous stasis changes) Neuro: Normal Speech, Normal Tone, Sensation Intact, Other (generalized weakness) Psych/Mental Status: Mental Status NL A/P-Cardiology Admission Diagnosis Debility Congestive heart failure Coronary artery disease Chronic renal insufficiency Assessment/Plan Debility, generalized weakness, secondary to congestive heart failure and coronary artery disease receiving physical therapy, continue to monitor, no changes are recommended Congestive heart failure, acute on chronic left ventricular systolic dysfunction , ischemic cardiomyopathy, last evaluation estimated ejection fraction 15-20 percent. Still receiving aggressive diuresis. He is maintained on beta blockers. JIM inhibitor was discontinued, patient received the last dose on November 16, 2017, planning to start Entresto on November 18, 2017 in the evening and monitor his tolerance and response closely. Large left pleural effusion seen on CT of the chest of 11-10-17 and CXR of , continue to monitor, followed and managed by primary care physician Peripheral edema, chronic venous stasis, continue with aggressive diuretics and monitor electrolytes closely, monitor renal function closely CAD with history of CABGx5 at the [facility] February 2012. Details of CABG unavailable. MPI of 05/19/15 did not show ischemia or infarction but there was LV enlargement and LVEF was 22%, no active chest pain. Continue to monitor Persistent a fib with poor vent rate control, treated with AVN ablation in mid Sep 2015 at [facility] by Dr Hernández. S/P ablation for atrial flutter by Dr. Hernández at [facility] by Dr. Hernández on 06/09/15, maintained on Xarelto. Monitor heart rate. No changes are recommended S/p single ch ICD implanted on 02/07/16, upgraded to LABORER ROAD-D by Dr Hernández in Sep 2015 , functioning normally on interrogation of June 2017, no changes are recommended Elevated bilirubin, indicative of jaundice of unknown etiology, continue to monitor. Hypertension, controlled. Continue to monitor with continued diuretics and monitor closely. Chronic renal insufficiency, chronic kidney disease stage IV, monitor renal function closely. Episode of wide complex tachycardia during hospitalization of January 20, 2016 H/o torsade de pointes, continue to monitor Diabetes mellitus, followed and managed by primary care physician Mild to moderate carotid arterial disease carotid u/s of October 2016 Gout in his left hand History of gynecomastia on spironolactone Mild chronic thrombocytopenia, continue to monitor platelets, followed and managed by primary care physician Clinical Quality Measures DVT/VTE Risk/Contraindication: Risk Factor Score Per Nursin RFS Level Per Nursing on Admit: 2=Moderate ANCELMO SIHN Nov 18, 2017 08:32
--- NOTE | 2017-11-18 09:58 | Physical Therapy Daily Note ---
PT Daily Note-Current Subjective Patient in bed pre tx, agrees to PT, has pain of 10/10 on his bottom. Patient needs dressed lowers. Patient seems to have less swelling in general. Appearance Patient in recliner post tx with legs elevated, has nurse call, phone, tray, all needs met. Mental Status Patient Orientation: Person, Place, Situation Transfers Functional [place] Measure 0=Not Assessed/NA 4=Minimal Assistance 1=Total Assistance 5=Supervision or Setup 2=Maximal Assistance 6=Modified [place] 3=Moderate Assistance 7=Complete IndependenceIRFPAI Quality Coding Scale 6 Independent with activity with or without an assistive device 5 Patient requires set up or clean up by helper. Patient completes activity by themselves 4 Supervision or touching assist (CGA). [place] provide cues , steadying assist 3 The helper provides less than half the effort to complete the activity 2 The helper provides more than half the effort to complete the activity 1 Dependent. The helper does all the effort to complete an activity 7 Patient refused to complete or attempt activity 9 The patient did not perform the activity before the current illness or injury 88 Not attempted due to Medical conditions or safety concerns Transfers (B, C, W/C) (FIM): 3 Scootin Rollin Supine to/from Sit: 4 Sit to/from Stand: 4 Bed to/from Chair: 4 occasional cues for positioning Weight Bearing Right Lower Extremity: Right Full Weight Bearing Left Lower Extremity: Left Full Weight Bearing Gait Training Gait (FIM): 4 Distance: 150'x2 Gait Level of Assist: 4 Gait Persons Needed: 1 Gait Assistive Device: FWW CGA, slow but steady, poor foot clearance Exercises Standing: Hip Abduction, Hamstring curls, Heel/toe raises, Marching, Mini squats, Step-ups Standing Reps: 15 NuStep Minutes: 15 NuStep Workload: 5 Treatments transfers, dressing (max assist for lowers), ambulation, functional strengthening Assessment Current Status: Fair Progress improved transfers today PT Short Term Goals Short Term Goals Transfers (B,C,W/C) (FIM): 5 PT Half-Way Goals Gasket Maker Goals PT Half-Way Goals Time Frame: Dec 06, 2017 Transfers (B,C,W/C) (FIM): 6 Sit to Lying (QC): 6 Lying-Sitting on Side/Bed(QC): 6 Sit to Stand (QC): 6 Rollin Roll Left to Right (QC): 6 Chair/Trr-ik-Pyqys Xfer(QC): 6 Car Transfer (QC): 6 Does the Patient Walk: Yes Gait (FIM): 6 Gait distance (FIM): 3=150 ft Distance: 150' Walk 10 feet (QC): 6 Walk 10ft-Uneven Surface(QC): 6 Walk 50ft with 2 Turns (QC): 6 Walk 150 ft (QC): 6 Gait Level of Assist: 6 Gait Assistive Device: FWW Stairs (FIM): 5 # of Steps: 8 1 Step (curb) (QC): 5 4 Steps (QC): 5 12 Steps (QC): 9 Stairs Level Of Assist: 5 Picking up an Object (QC): 5 PT Plan Problem List Problem List: Activity Tolerance, Functional Strength, Safety, Balance, Gait, Transfer, Bed Mobility, ROM Treatment/Plan Treatment Plan: Continue Plan of Care Treatment Plan: Bed Mobility, Concurrent Therapy, Education, Functional Activity Felecia, Functional Strength, Group Therapy, Gait, Safety, Therapeutic Exercise, Transfers Treatment Duration: Dec 06, 2017 Frequency: At least 5 of 7 days/Wk (IRF) Estimated Hrs Per Day: 1.5 hours per day Patient and/or Family Agrees t: Yes Safety Risks/Education Patient Education: Gait Training, Transfer Techniques, Correct Positioning, Safety Issues Teaching Recipient: Patient Teaching Methods: Demonstration, Discussion Response to Teaching: Reinforcement Needed Time/GCodes Time In: 900 Time Out: 1000 Total Billed Treatment Time: 60 Total Billed Treatment 1 visit EX 30' GT 20' FA 10' FLETCHER BEDOYA PT Nov 18, 2017 09:57
--- NOTE | 2017-11-18 11:38 | Occupational Ther Daily Note ---
OT Current Status-Daily Note Subjective No pain reported. Appearance Pt. states that he is tired and asks OT to come back. OT explains purpose of rehab and that there is a schedule. Pt. agrees to get cleaned up but declines showering. Mental Status/Objective Patient Orientation: Person Functional [place] Measure 0=Not Assessed/NA 4=Minimal Assistance 1=Total Assistance 5=Supervision or Setup 2=Maximal Assistance 6=Modified [place] 3=Moderate Assistance 7=Complete [place] ADL-Treatment Functional [place] Measure 0=Not Assessed/NA 4=Minimal Assistance 1=Total Assistance 5=Supervision or Setup 2=Maximal Assistance 6=Modified [place] 3=Moderate Assistance 7=Complete IndependenceIRFPAI Quality Coding Scale 6 Independent with activity with or without an assistive device 5 Patient requires set up or clean up by helper. Patient completes activity by themselves 4 Supervision or touching assist (CGA). [place] provide cues , steadying assist 3 The helper provides less than half the effort to complete the activity 2 The helper provides more than half the effort to complete the activity 1 Dependent. The helper does all the effort to complete an activity 7 Patient refused to complete or attempt activity 9 The patient did not perform the activity before the current illness or injury 88 Not attempted due to Medical conditions or safety concerns Grooming (FIM): 4 (Pt. requires min assist to comb hair. Pt. is able to shave face after set up seated at sink.) Oral Hygiene (QC): 4 Bathing (FIM): 4 (Pt. required min assist in stance to wash cassie area. ) Shower/Bathe Self (QC): 4 Upper Body (FIM): 4 (Pt. had difficulty finding hole of shirt and orienting it to put it on.) Upper Body Dressing (QC): 4 Lower Body Dressing (FIM): 2 Lower Body Dressing (QC): 2 On/Off Footwear (QC): 2 Transfers (B, C, W/C) (FIM): 4 (Min assist to ambulate with walker to gym.) After ADLs in room, pt. stood at walker and ambulated to therapy gym. OT donned 1 lb. wrist weights and pt. completed nut/bolt activity with bilateral UE to increase overall strength. Tolerated treatment well. Education OT Patient Education: Exercise program, Progress toward Goal/Update tx plan, Purpose of tx/functional activities, Reviewed precautions, Rehab process, Transfer techniques Teaching Recipient: Patient Teaching Methods: Demonstration, Discussion Response to Teaching: Verbalize Understanding, Return Demonstration OT Short Term Goals Short Term Goals Time Frame: Nov 28, 2017 Eating(FIM): 5 Grooming(FIM): 5 Bathing(FIM): 3 Upper Body Dressing(FIM): 5 Lower Body Dressing(FIM): 4 Toileting(FIM): 5 Transfers (B,C,W/C) (FIM): 5 Toilet/Commode Transfer(FIM): 5 Shower Transfer(FIM): 4 Additional Short Term Goals: 1-Demonstrate ADL Tasks, 2-Verbalize Understanding , 3-ImproveStrength/Felecia 1=Demonstrate adherence to instructed precautions during ADL tasks. 2=Patient will verbalize/demonstrate understanding of assistive devices/ modifications for ADL. 3=Patient will improve strength/tolerance for activity to enable patient to perform ADL's. OT Combination Technician Goals [facility] Goals Time Frame: Dec 12, 2017 Eating (FIM): 6 Eating (QC): 6 Groomin Oral Hygiene (QC): 5 Bathing(FIM): 5 Shower/Bathe Self (QC): 5 Upper Body Dressing(FIM): 6 Upper Body Dressing (QC): 6 Lower Body Dressing(FIM): 5 Lower Body Dressing (QC): 5 On/Off Footwear (QC): 5 Toileting(FIM): 6 Toileting Hygiene (QC): 6 Transfers (B,C,W/C) (FIM): 6 Toilet/Commode Transfer(FIM): 6 Toilet/Commode Transfer (QC): 6 Shower Transfer(FIM): 5 Additional Goals: 1-Demonstrate ADL Tasks, 2-Verbalize Understanding, 3- ImproveStrength/Felecia 1=Demonstrate adherence to instructed precautions during ADL tasks. 2=Patient will verbalize/demonstrate understanding of assistive devices/ modifications for ADL. 3=Patient will improve strength/tolerance for activity to enable patient to perform ADL's. OT Education/Plan Problem List/Assessment Assessment: Decreased Activ Tolerance, Dependent Transfers, Edema, Impaired Funct Balance, Impaired I ADL's, Impaired Self-Care Skills Discharge Recommendations Plan/Recommendations: Continue POC Therapy D/C Recommendations: 24 hr Supervision, Home w/ Family Support, Occupational Therapy Home Care Treatment Plan/Plan of Care Treatment,Training & Education: Yes Patient would benefit from OT for education, treatment and training to promote independence in ADL's, mobility, safety and/or upper extremity function for ADL' s. Plan of Care: ADL Retraining, Functional Mobility, UE Funct Exercise/Act Treatment Duration: Dec 12, 2017 Frequency: 5 times per week Estimated Hrs Per Day: 1.5 hours per day Agreement: Yes Rehab Potential: Fair Time/GCodes Start Time: 10:00 Stop Time: 11:00 Total Time Billed (hr/min): 60 Billed Treatment Time 1, ADL x 45minutes, Ex x 15minutes GERMAINE REID OT Nov 18, 2017 11:37
--- NOTE | 2017-11-18 14:37 | Therapy Group Daily Note ---
Therapy Daily Group Note Other/Notes Each patient participated in group therapy in the common area of rehab. Each patient ambulated or was transported to the common area of rehab and seated in a solomon. Each patient had to introduce themselves, state where they were born and answer a question that required memory and critical thinking. The group was educated about adaptive equipment for showers, transfers, and dressing. Patients then participated in group lower extremity strengthening exercises. Each patient had to perform a car transfer and Nishant performed it with Román. Then each patient performed a matching game that involved memory, upper extremity strength, and manual dexterity. Patients were encouraged to participate and interact with each other to problem solve. Then, each patient ambulated or was transported back to their room and placed in bed or chair with nurse call, phone, and tray. Start Time: 13:00 Stop Time: 14:20 Total Billed Treatment Time: 80 Total Billed Treatment 1 visit GRP 80' FLETCHER BEDOYA PT Nov 18, 2017 14:37
[2017-11-18 17:54] VITALS: BP 110/56
[2017-11-19 06:00] VITALS: BP 102/71
[2017-11-19] MEDS: glyBURIDE 2.5 MG (MICRONASE) TAB PO SCH (06:24)
[2017-11-19] MEDS: KCL 10 MEQ TAB (MICRO K) PO SCH (06:24)
[2017-11-19] MEDS: MULTIVIT W/MINERALS TAB (THERAGRAN M) PO SCH (06:24)
[2017-11-19 07:01] VITALS: BP 102/71
--- NOTE | 2017-11-19 08:09 | Cardiology Progress Note ---
Subjective Date Seen by Provider: Nov 19, 2017 Time Seen by Provider: 08:08 Subjective/Events-last exam Patient is asleep in bed, easily awakens to answer questions. Denies any CP or dyspnea. Review of Systems General: No Night Sweats, No Fatigue, No Malaise HEENT: No Visual Changes, No Dysphasia Pulmonary: No Dyspnea, No Cough Cardiovascular: Edema, No: Chest Pain, Palpitations, Paroxysmal Noc. Dyspnea Gastrointestinal: No: Nausea, Vomiting, Diarrhea, Constipation Genitourinary: No Dysuria, No Frequency Musculoskeletal: No: neck pain, back pain Neurological: No: Weakness, Numbness, Change in speech, Confusion Objective-Cardiology Exam Last Set of Vital Signs Vital Signs 11/19/17 07:01 Temp 96.5 Pulse 86 Resp 18 B/P (MAP) 102/71 (81) Pulse Ox 94 O2 Delivery Room Air Capillary Refill : I&O Intake and Output 11/19/17 00:00 Intake Total 1125 ml Output Total 550 ml Balance 575 ml Intake Oral 1125 ml Output Urine Total 550 ml # Voids 5 # Bowel Movements 2 General: Alert, Oriented X3, Cooperative, No Acute Distress HEENT: Atraumatic, PERRLA, EOMI, Mucous Memb Moist/[place] Neck: Supple, No JVD Lungs: Clear to Auscultation Heart: Regular Rate, Normal S1, Normal S2, Other (S3 is present) Abdomen: Normal Bowel Sounds, Soft, No Tenderness Extremities: No Clubbing, No Cyanosis, Other (+1-2 pedal edema, upper extremities edema) Skin: Other (Chronic venous stasis changes) Neuro: Normal Speech, Normal Tone, Sensation Intact, Other (generalized weakness) Psych/Mental Status: Mental Status NL A/P-Cardiology Admission Diagnosis Debility Congestive heart failure Coronary artery disease Chronic renal insufficiency Assessment/Plan Debility, generalized weakness, secondary to congestive heart failure and coronary artery disease receiving physical therapy, continue to monitor, no changes are recommended Congestive heart failure, acute on chronic left ventricular systolic dysfunction , ischemic cardiomyopathy, last evaluation estimated ejection fraction 15-20 percent. Still receiving aggressive diuresis. He is maintained on beta blockers. JIM inhibitor was discontinued, patient received the last dose on November 16, 2017, Entresto started this morning, continue to monitor. Large left pleural effusion seen on CT of the chest of 11-10-17 and CXR of , continue to monitor, followed and managed by primary care physician Peripheral edema, chronic venous stasis, continue with aggressive diuretics and monitor electrolytes closely, monitor renal function closely CAD with history of CABGx5 at [facility] February 2012. Details of CABG unavailable. MPI of 05/19/15 did not show ischemia or infarction but there was LV enlargement and LVEF was 22%, no active chest pain. Continue to monitor Persistent a fib with poor vent rate control, treated with AVN ablation in mid Sep [address] [facility] by Dr Hernández. S/P ablation for atrial flutter by Dr. Hernández at [facility] by Dr. Hernández on 06/09/15, maintained on Xarelto. Monitor heart rate. No changes are recommended S/p single ch ICD implanted on 02/07/16, upgraded to OIL LABORATORY ANALYST-D by Dr Hernández in Sep 2015 , functioning normally on interrogation of June 2017, no changes are recommended Elevated bilirubin, indicative of jaundice of unknown etiology, continue to monitor. Hypertension, controlled. Continue to monitor with continued diuretics and monitor closely. Chronic renal insufficiency, chronic kidney disease stage IV, monitor renal function closely. Episode of wide complex tachycardia during hospitalization of January 20, 2016 H/o torsade de pointes, continue to monitor Diabetes mellitus, followed and managed by primary care physician Mild to moderate carotid arterial disease carotid u/s of October 2016 Gout in his left hand History of gynecomastia on spironolactone Mild chronic thrombocytopenia, continue to monitor platelets, followed and managed by primary care physician Clinical Quality Measures DVT/VTE Risk/Contraindication: Risk Factor Score Per Nursin RFS Level Per Nursing on Admit: 2=Moderate ANCELMO SHIN Nov 19, 2017 08:09
--- NOTE | 2017-11-19 08:12 | Cardiology Progress Note ---
Subjective Date Seen by Provider: Nov 19, 2017 Time Seen by Provider: 08:11 Subjective/Events-last exam Patient is laying down in bed, feeling better, still having edema. Review of Systems General: No Chills, No Night Sweats, No Fatigue, No Malaise, No Appetite, No Other HEENT: No Head Aches, No Visual Changes, No Eye Pain, No Ear Pain, No Dysphasia , No Sinus Congestion, No Post Nasal Drip, No Sore Throat, No Other Pulmonary: Dyspnea, No Cough, No Pleuritic Chest Pain, No Other Cardiovascular: Edema, No: Chest Pain, Palpitations, Orthopnea, Paroxysmal Noc. Dyspnea, Lt Headedness, Other Objective-Cardiology Exam Last Set of Vital Signs Vital Signs 11/19/17 07:01 Temp 96.5 Pulse 86 Resp 18 B/P (MAP) 102/71 (81) Pulse Ox 94 O2 Delivery Room Air Capillary Refill : I&O Intake and Output 11/19/17 00:00 Intake Total 1125 ml Output Total 550 ml Balance 575 ml Intake Oral 1125 ml Output Urine Total 550 ml # Voids 5 # Bowel Movements 2 General: Alert, Oriented X3, Cooperative, No Acute Distress HEENT: Atraumatic, PERRLA, EOMI, Mucous Memb Moist/[place] Neck: Supple, No JVD Lungs: Clear to Auscultation Heart: Regular Rate, Normal S1, Normal S2, Other (S3 is present) Abdomen: Normal Bowel Sounds, Soft, No Tenderness Extremities: No Clubbing, No Cyanosis, Other (+1-2 pedal edema, upper extremities edema) Skin: Other (Chronic venous stasis changes) Neuro: Normal Speech, Normal Tone, Sensation Intact, Other (generalized weakness) Psych/Mental Status: Mental Status NL Results Lab Laboratory Tests Test 11/18/17 16:25 11/19/17 06:26 Range/Units Glucometer 155 H 88 70-110 MG/DL A/P-Cardiology Admission Diagnosis Debility Congestive heart failure Coronary artery disease Chronic renal insufficiency Assessment/Plan Debility, generalized weakness, secondary to congestive heart failure and coronary artery disease receiving physical therapy, continue to monitor, no changes are recommended Congestive heart failure, acute on chronic left ventricular systolic dysfunction , ischemic cardiomyopathy, last evaluation estimated ejection fraction 15-20 percent. Still receiving aggressive diuresis. He is maintained on beta blockers. JIM inhibitor was discontinued, patient received the last dose on November 16, 2017, Entresto started this morning, continue to monitor. Large left pleural effusion seen on CT of the chest of 11-10-17 and CXR of , continue to monitor, followed and managed by primary care physician Peripheral edema, chronic venous stasis, continue with aggressive diuretics and monitor electrolytes closely, monitor renal function closely CAD with history of CABGx5 at the [facility] February 2012. Details of CABG unavailable. MPI of 05/19/15 did not show ischemia or infarction but there was LV enlargement and LVEF was 22%, no active chest pain. Continue to monitor Persistent a fib with poor vent rate control, treated with AVN ablation in mid Sep 2015 at [facility] by Dr Hernández. S/P ablation for atrial flutter by Dr. Hernández at [facility] by Dr. Hernández on 06/09/15, maintained on Xarelto. Monitor heart rate. No changes are recommended S/p single ch ICD implanted on 02/07/16, upgraded to IMAGE ARCHIVIST-D by Dr Hernández in Sep 2015 , functioning normally on interrogation of June 2017, no changes are recommended Elevated bilirubin, indicative of jaundice of unknown etiology, continue to monitor. Hypertension, controlled. Continue to monitor with continued diuretics and monitor closely. Chronic renal insufficiency, chronic kidney disease stage IV, monitor renal function closely. Episode of wide complex tachycardia during hospitalization of January 20, 2016 H/o torsade de pointes, continue to monitor Diabetes mellitus, followed and managed by primary care physician Mild to moderate carotid arterial disease carotid u/s of October 2016 Gout in his left hand History of gynecomastia on spironolactone Mild chronic thrombocytopenia, continue to monitor platelets, followed and managed by primary care physician Dr. Duarte is covering Clinical Quality Measures DVT/VTE Risk/Contraindication: Risk Factor Score Per Nursin RFS Level Per Nursing on Admit: 2=Moderate PAGE BENDER MD Nov 19, 2017 08:12
[2017-11-19] MEDS: CARVEDILOL 3.125 MG (COREG) TABLET PO SCH ×2 (08:30→21:39)
[2017-11-19] MEDS: LACTULOSE SYRUP 10GM/15ML (ENULOSE) 30ML UDC PO SCH (08:31)
[2017-11-19] MEDS: METOLAZONE 5 MG (ZAROXOLYN) TAB PO SCH (08:31)
[2017-11-19] MEDS: ALLOPURINOL 100 MG (ZYLOPRIM) TAB PO SCH (08:31)
[2017-11-19] MEDS: FUROSEMIDE 20 MG (LASIX) TAB PO SCH (08:31)
[2017-11-19] MEDS: ASPIRIN E.C. 81 MG (ECOTRIN) TAB PO SCH (08:31)
[2017-11-19] MEDS: APIXABAN 2.5 MG (ELIQUIS) TABLET PO SCH ×2 (08:31→21:39)
[2017-11-19] MEDS: ZINC OXIDE 16% OINT (BUTT PASTE) 113 GM TUBE TOP SCH ×3 (08:31→21:39)
[2017-11-19] MEDS: SACUBITRIL/VALSARTAN 24/26 MG (ENTRESTO) TABLET PO SCH ×2 (08:32→21:39)
--- NOTE | 2017-11-19 09:45 | Physical Therapy Daily Note ---
PT Daily Note-Current Subjective Patient in bed pre tx, agrees to PT, no complaints of pain. Appearance Patient in bed post tx with nurse call, phone, tray, all needs met. Mental Status Patient Orientation: Person, Place, Situation Transfers Functional [place] Measure 0=Not Assessed/NA 4=Minimal Assistance 1=Total Assistance 5=Supervision or Setup 2=Maximal Assistance 6=Modified [place] 3=Moderate Assistance 7=Complete IndependenceIRFPAI Quality Coding Scale 6 Independent with activity with or without an assistive device 5 Patient requires set up or clean up by helper. Patient completes activity by themselves 4 Supervision or touching assist (CGA). [place] provide cues , steadying assist 3 The helper provides less than half the effort to complete the activity 2 The helper provides more than half the effort to complete the activity 1 Dependent. The helper does all the effort to complete an activity 7 Patient refused to complete or attempt activity 9 The patient did not perform the activity before the current illness or injury 88 Not attempted due to Medical conditions or safety concerns Transfers (B, C, W/C) (FIM): 4 Scootin Rollin Supine to/from Sit: 4 Sit to/from Stand: 5 Bed to/from Chair: 5 min assist getting leg into bed Weight Bearing Right Lower Extremity: Right Full Weight Bearing Left Lower Extremity: Left Full Weight Bearing Gait Training Gait (FIM): 5 Distance: 150'x4 Gait Level of Assist: 5 Gait Persons Needed: 1 Gait Assistive Device: FWW slow ambulation, slumped with walker too far out in front, does not correct much with cues Exercises Supine Ex: Bridging, Ankle pumps, Quad Set, Glut sets, Heel Slides, Short Arc Quads, Straight leg raise, Hip abd/add Supine Reps: 20 LAQ alternating with 2# ankle weights for 5 min Treatments bed mobility and transfers, ambulation, functional strengthening, patient was also toileted once for a BM and needed assist with wiping and to get his pants up but not down Assessment Current Status: Fair Progress slowly improving strength and endurance PT Short Term Goals Short Term Goals Transfers (B,C,W/C) (FIM): 5 PT Production [place] Goals Production [place] Goals PT Production [place] Goals Time Frame: Dec 06, 2017 Transfers (B,C,W/C) (FIM): 6 Sit to Lying (QC): 6 Lying-Sitting on Side/Bed(QC): 6 Sit to Stand (QC): 6 Rollin Roll Left to Right (QC): 6 Chair/Cqf-av-Rrkds Xfer(QC): 6 Car Transfer (QC): 6 Does the Patient Walk: Yes Gait (FIM): 6 Gait distance (FIM): 3=150 ft Distance: 150' Walk 10 feet (QC): 6 Walk 10ft-Uneven Surface(QC): 6 Walk 50ft with 2 Turns (QC): 6 Walk 150 ft (QC): 6 Gait Level of Assist: 6 Gait Assistive Device: FWW Stairs (FIM): 5 # of Steps: 8 1 Step (curb) (QC): 5 4 Steps (QC): 5 12 Steps (QC): 9 Stairs Level Of Assist: 5 Picking up an Object (QC): 5 PT Plan Problem List Problem List: Activity Tolerance, Functional Strength, Safety, Balance, Gait, Transfer, Bed Mobility, ROM Treatment/Plan Treatment Plan: Continue Plan of Care Treatment Plan: Bed Mobility, Concurrent Therapy, Education, Functional Activity Felecia, Functional Strength, Group Therapy, Gait, Safety, Therapeutic Exercise, Transfers Treatment Duration: Dec 06, 2017 Frequency: At least 5 of 7 days/Wk (IRF) Estimated Hrs Per Day: 1.5 hours per day Patient and/or Family Agrees t: Yes Safety Risks/Education Patient Education: Gait Training, Transfer Techniques, Correct Positioning, Safety Issues Teaching Recipient: Patient Teaching Methods: Demonstration, Discussion Response to Teaching: Reinforcement Needed Time/GCodes Time In: 845 Time Out: 945 Total Billed Treatment Time: 60 Total Billed Treatment 1 visit GT 30' EX 20' FA 10' FLETCHER BEDOYA PT Nov 19, 2017 09:45
--- NOTE | 2017-11-19 10:48 | Occupational Ther Daily Note ---
OT Current Status-Daily Note Subjective No pain reported. Appearance Pt. in bed. Agrees to shower. Mental Status/Objective Patient Orientation: Person Functional [place] Measure 0=Not Assessed/NA 4=Minimal Assistance 1=Total Assistance 5=Supervision or Setup 2=Maximal Assistance 6=Modified [place] 3=Moderate Assistance 7=Complete [place] ADL-Treatment Functional [place] Measure 0=Not Assessed/NA 4=Minimal Assistance 1=Total Assistance 5=Supervision or Setup 2=Maximal Assistance 6=Modified [place] 3=Moderate Assistance 7=Complete IndependenceIRFPAI Quality Coding Scale 6 Independent with activity with or without an assistive device 5 Patient requires set up or clean up by helper. Patient completes activity by themselves 4 Supervision or touching assist (CGA). [place] provide cues , steadying assist 3 The helper provides less than half the effort to complete the activity 2 The helper provides more than half the effort to complete the activity 1 Dependent. The helper does all the effort to complete an activity 7 Patient refused to complete or attempt activity 9 The patient did not perform the activity before the current illness or injury 88 Not attempted due to Medical conditions or safety concerns Grooming (FIM): 4 (Pt. would like to stand instead of sit at sink to shave. Pt. requires CGA in stance.) Oral Hygiene (QC): 4 Bathing (FIM): 4 (Pt. requires min assist in stance to wash cassie areas. Pt. holds onto grab bars in shower. Pt. requires assist to wash feet.) Shower/Bathe Self (QC): 4 Upper Body (FIM): 5 Upper Body Dressing (QC): 4 Lower Body Dressing (FIM): 2 (Pt. requires max assist overall to don socks and pants. Pt. states that his spouse will assist at home.) Lower Body Dressing (QC): 2 On/Off Footwear (QC): 2 Toileting (FIM): 4 (CGA in stance to manage urinal.) Toileting Hygiene (QC): 4 Transfers (B, C, W/C) (FIM): 4 Shower Transfer(FIM): 4 Other Treatment Pt. does not initiate tasks well. Requires cues to start or to try the task. Pt. is encouraged to do things for himself. Will state that he can do them, but then unable to. When prompted, pt. states that his spouse can assist at home. OT removes bandage on right LE after shower. Nursing notified to change bandage. All needs met. Education OT Patient Education: Correct positioning, Modified ADL techniques, Progress toward Goal/Update tx plan, Purpose of tx/functional activities, Reviewed precautions, Rehab process, Transfer techniques Teaching Recipient: Patient Teaching Methods: Demonstration, Discussion Response to Teaching: Verbalize Understanding, Return Demonstration OT Short Term Goals Short Term Goals Time Frame: Nov 28, 2017 Eating(FIM): 5 Grooming(FIM): 5 Bathing(FIM): 3 Upper Body Dressing(FIM): 5 Lower Body Dressing(FIM): 4 Toileting(FIM): 5 Transfers (B,C,W/C) (FIM): 5 Toilet/Commode Transfer(FIM): 5 Shower Transfer(FIM): 4 Additional Short Term Goals: 1-Demonstrate ADL Tasks, 2-Verbalize Understanding , 3-ImproveStrength/Felecia 1=Demonstrate adherence to instructed precautions during ADL tasks. 2=Patient will verbalize/demonstrate understanding of assistive devices/ modifications for ADL. 3=Patient will improve strength/tolerance for activity to enable patient to perform ADL's. OT Jail Goals Jail Goals Time Frame: Dec 12, 2017 Eating (FIM): 6 Eating (QC): 6 Groomin Oral Hygiene (QC): 5 Bathing(FIM): 5 Shower/Bathe Self (QC): 5 Upper Body Dressing(FIM): 6 Upper Body Dressing (QC): 6 Lower Body Dressing(FIM): 5 Lower Body Dressing (QC): 5 On/Off Footwear (QC): 5 Toileting(FIM): 6 Toileting Hygiene (QC): 6 Transfers (B,C,W/C) (FIM): 6 Toilet/Commode Transfer(FIM): 6 Toilet/Commode Transfer (QC): 6 Shower Transfer(FIM): 5 Additional Goals: 1-Demonstrate ADL Tasks, 2-Verbalize Understanding, 3- ImproveStrength/Felecia 1=Demonstrate adherence to instructed precautions during ADL tasks. 2=Patient will verbalize/demonstrate understanding of assistive devices/ modifications for ADL. 3=Patient will improve strength/tolerance for activity to enable patient to perform ADL's. OT Education/Plan Problem List/Assessment Assessment: Decreased Activ Tolerance, Decreased UE Strength, Dependent Transfers, Impaired Bed Mobility, Impaired Funct Balance, Impaired I ADL's, Impaired Self-Care Skills Discharge Recommendations Plan/Recommendations: Continue POC Therapy D/C Recommendations: Home w/ Family Support, Occupational Therapy Home Care Comment Equipment needs to be determined. Treatment Plan/Plan of Care Treatment,Training & Education: Yes Patient would benefit from OT for education, treatment and training to promote independence in ADL's, mobility, safety and/or upper extremity function for ADL' s. Plan of Care: ADL Retraining, Functional Mobility, UE Funct Exercise/Act Treatment Duration: Dec 12, 2017 Frequency: 5 times per week Estimated Hrs Per Day: 1.5 hours per day Agreement: Yes Rehab Potential: Fair Time/GCodes Start Time: 09:45 Stop Time: 10:45 Total Time Billed (hr/min): 60 Billed Treatment Time 1, ADL x 4 GERMAINE REID OT Nov 19, 2017 10:48
--- NOTE | 2017-11-19 14:04 | Physical Therapy Daily Note ---
PT Daily Note-Current Subjective Patient in therapy gym pre tx, agrees to PT, no complaints of pain. Appearance Patient in bed post tx with nurse call, phone, tray, all needs met. Mental Status Patient Orientation: Person, Place, Situation Transfers Functional [place] Measure 0=Not Assessed/NA 4=Minimal Assistance 1=Total Assistance 5=Supervision or Setup 2=Maximal Assistance 6=Modified [place] 3=Moderate Assistance 7=Complete IndependenceIRFPAI Quality Coding Scale 6 Independent with activity with or without an assistive device 5 Patient requires set up or clean up by helper. Patient completes activity by themselves 4 Supervision or touching assist (CGA). [place] provide cues , steadying assist 3 The helper provides less than half the effort to complete the activity 2 The helper provides more than half the effort to complete the activity 1 Dependent. The helper does all the effort to complete an activity 7 Patient refused to complete or attempt activity 9 The patient did not perform the activity before the current illness or injury 88 Not attempted due to Medical conditions or safety concerns Transfers (B, C, W/C) (FIM): 4 Scootin Rollin Supine to/from Sit: 4 Sit to/from Stand: 5 Bed to/from Chair: 5 Patient needs assist with left leg getting into bed. Weight Bearing Right Lower Extremity: Right Full Weight Bearing Left Lower Extremity: Left Full Weight Bearing Gait Training Gait (FIM): 5 Distance: 150' Gait Level of Assist: 5 Gait Persons Needed: 1 Gait Assistive Device: FWW Exercises NuStep Minutes: 10 NuStep Workload: 5 Treatments ambulation, functional strengthening, patient also needed to be toileted for a BM, he was able to get his pants up and down without assist but needed help wiping and butt paste applied Assessment Current Status: Fair Progress improving endurance PT Short Term Goals Short Term Goals Transfers (B,C,W/C) (FIM): 5 PT Wire Communications Engineer Goals Alf Goals PT Alf Goals Time Frame: Dec 06, 2017 Transfers (B,C,W/C) (FIM): 6 Sit to Lying (QC): 6 Lying-Sitting on Side/Bed(QC): 6 Sit to Stand (QC): 6 Rollin Roll Left to Right (QC): 6 Chair/Wms-hl-Drxey Xfer(QC): 6 Car Transfer (QC): 6 Does the Patient Walk: Yes Gait (FIM): 6 Gait distance (FIM): 3=150 ft Distance: 150' Walk 10 feet (QC): 6 Walk 10ft-Uneven Surface(QC): 6 Walk 50ft with 2 Turns (QC): 6 Walk 150 ft (QC): 6 Gait Level of Assist: 6 Gait Assistive Device: FWW Stairs (FIM): 5 # of Steps: 8 1 Step (curb) (QC): 5 4 Steps (QC): 5 12 Steps (QC): 9 Stairs Level Of Assist: 5 Picking up an Object (QC): 5 PT Plan Problem List Problem List: Activity Tolerance, Functional Strength, Safety, Balance, Gait, Transfer, Bed Mobility, ROM Treatment/Plan Treatment Plan: Continue Plan of Care Treatment Plan: Bed Mobility, Concurrent Therapy, Education, Functional Activity Felecia, Functional Strength, Group Therapy, Gait, Safety, Therapeutic Exercise, Transfers Treatment Duration: Dec 06, 2017 Frequency: At least 5 of 7 days/Wk (IRF) Estimated Hrs Per Day: 1.5 hours per day Patient and/or Family Agrees t: Yes Safety Risks/Education Patient Education: Gait Training, Transfer Techniques, Correct Positioning, Safety Issues Teaching Recipient: Patient Teaching Methods: Demonstration, Discussion Response to Teaching: Reinforcement Needed Time/GCodes Time In: 1330 Time Out: 1400 Total Billed Treatment Time: 30 Total Billed Treatment 1 visit EX 10' FA 20' FLETCHER BEDOYA PT Nov 19, 2017 14:04
--- NOTE | 2017-11-19 14:56 | Occupational Ther Daily Note ---
OT Current Status-Daily Note Subjective Pt. asleep. Wakes up and agrees to work with OT. Appearance Pt. in bed. Agrees to work with OT. Mental Status/Objective Patient Orientation: Person, Place Functional [place] Measure 0=Not Assessed/NA 4=Minimal Assistance 1=Total Assistance 5=Supervision or Setup 2=Maximal Assistance 6=Modified [place] 3=Moderate Assistance 7=Complete [place] ADL-Treatment Functional [place] Measure 0=Not Assessed/NA 4=Minimal Assistance 1=Total Assistance 5=Supervision or Setup 2=Maximal Assistance 6=Modified [place] 3=Moderate Assistance 7=Complete IndependenceIRFPAI Quality Coding Scale 6 Independent with activity with or without an assistive device 5 Patient requires set up or clean up by helper. Patient completes activity by themselves 4 Supervision or touching assist (CGA). [place] provide cues , steadying assist 3 The helper provides less than half the effort to complete the activity 2 The helper provides more than half the effort to complete the activity 1 Dependent. The helper does all the effort to complete an activity 7 Patient refused to complete or attempt activity 9 The patient did not perform the activity before the current illness or injury 88 Not attempted due to Medical conditions or safety concerns Transfers (B, C, W/C) (FIM): 4 (Pt. transfers supine-sit with min assist, and sit-stand with SBA.) Other Treatment Pt. ambulated to therapy gym with OT assist. Pt. donned 1lb. wrist weights and completed arm arc and then therapy peg exercise with intermittent reaching to increase overall strength with bilateral UE. Pt. tolerated this well. At end of session, all needs met and PT coming into treatment area. Education OT Patient Education: Correct positioning, Exercise program, Modified ADL techniques, Progress toward Goal/Update tx plan, Purpose of tx/functional activities, Reviewed precautions, Rehab process, Transfer techniques Teaching Recipient: Patient Teaching Methods: Demonstration, Discussion Response to Teaching: Verbalize Understanding, Return Demonstration OT Short Term Goals Short Term Goals Time Frame: Nov 28, 2017 Eating(FIM): 5 Grooming(FIM): 5 Bathing(FIM): 3 Upper Body Dressing(FIM): 5 Lower Body Dressing(FIM): 4 Toileting(FIM): 5 Transfers (B,C,W/C) (FIM): 5 Toilet/Commode Transfer(FIM): 5 Shower Transfer(FIM): 4 Additional Short Term Goals: 1-Demonstrate ADL Tasks, 2-Verbalize Understanding , 3-ImproveStrength/Felecia 1=Demonstrate adherence to instructed precautions during ADL tasks. 2=Patient will verbalize/demonstrate understanding of assistive devices/ modifications for ADL. 3=Patient will improve strength/tolerance for activity to enable patient to perform ADL's. OT Tear Down Matcher Goals Tear Down Matcher Goals Time Frame: Dec 12, 2017 Eating (FIM): 6 Eating (QC): 6 Groomin Oral Hygiene (QC): 5 Bathing(FIM): 5 Shower/Bathe Self (QC): 5 Upper Body Dressing(FIM): 6 Upper Body Dressing (QC): 6 Lower Body Dressing(FIM): 5 Lower Body Dressing (QC): 5 On/Off Footwear (QC): 5 Toileting(FIM): 6 Toileting Hygiene (QC): 6 Transfers (B,C,W/C) (FIM): 6 Toilet/Commode Transfer(FIM): 6 Toilet/Commode Transfer (QC): 6 Shower Transfer(FIM): 5 Additional Goals: 1-Demonstrate ADL Tasks, 2-Verbalize Understanding, 3- ImproveStrength/Felecia 1=Demonstrate adherence to instructed precautions during ADL tasks. 2=Patient will verbalize/demonstrate understanding of assistive devices/ modifications for ADL. 3=Patient will improve strength/tolerance for activity to enable patient to perform ADL's. OT Education/Plan Problem List/Assessment Assessment: Decreased Activ Tolerance, Decreased UE Strength, Dependent Transfers, Impaired I ADL's, Impaired Self-Care Skills Discharge Recommendations Plan/Recommendations: Continue POC Therapy D/C Recommendations: Home w/ Family Support Target Placement Home with family and home health as needed. Treatment Plan/Plan of Care Treatment,Training & Education: Yes Patient would benefit from OT for education, treatment and training to promote independence in ADL's, mobility, safety and/or upper extremity function for ADL' s. Plan of Care: ADL Retraining, Functional Mobility, UE Funct Exercise/Act Treatment Duration: Dec 12, 2017 Frequency: 5 times per week Estimated Hrs Per Day: 1.5 hours per day Agreement: Yes Rehab Potential: Fair Time/GCodes Start Time: 13:00 Stop Time: 13:30 Total Time Billed (hr/min): 30 Billed Treatment Time 1, FA x 2 GERMAINE REID OT Nov 19, 2017 14:56
[2017-11-19 17:55] VITALS: BP 92/60
--- NOTE | 2017-11-19 18:19 | Wound Care Assessment ---
Wound Care Assessment Date Seen by Provider: Nov 19, 2017 Time Seen by Provider: 18:06 Chief Complaint R leg ulcers. HPI 77 year old male with debility and ulcers of R anterior calf. The lymphedema is better. Arterial studies show adequate perfusion. Will order Nicola compression. Past Medical History: Admits Diabetes Type II, Admits Myocardial Infarction Congestive heart failure, EF 15-20% Smoking Status: Never a Smoker Recreational Drug Use: No Alcohol Use: Denies Use Review of Systems Pulmonary: No Dyspnea Musculoskeletal: No: leg pain Exam Vital Signs Date Time Temp Pulse Resp B/P (MAP) Pulse Ox O2 Delivery O2 Flow Rate FiO2 11/19/17 07:01 96.5 86 18 102/71 (81) 94 Room Air Capillary Refill : General Appearance: no apparent distress Respiratory: no respiratory distress Skin Character: lesion (R anterior calf ulcer -- 4.6 x 3.7 x 0.2 cm 50% slough, 50% regenerating tissue.) Results Laboratory Tests 11/19/17 06:26: Glucometer 88 11/19/17 15:56: Glucometer 116H Assessment/Plan/Dx 1. Ulcer R anterior calf, due to lymphedema and diabetes. 2. Congestive heart failure with secondary lymphedema. 3. Adequate arterial perfusion. 4. Debility Plan: Change to Xeroform/Kerlix/Nicola dressings. YOLANDA GRIGGS MD Nov 19, 2017 18:19
--- NOTE | 2017-11-19 20:46 | PM & R (SOAP) Progress Note ---
Subjective Time Seen by Provider: 20:45 Subjective/Events-last exam Patient was seen in his room thi s evening patient min assist for transfers Appreciate Dr Becerril and Gwen notes and orders RT Leg nas wrapped Objective Exam Last Set of Vital Signs Vital Signs Date Time Temp Pulse Resp B/P (MAP) Pulse Ox O2 Delivery O2 Flow Rate FiO2 11/19/17 17:55 97.0 82 14 92/60 (71) 97 Room Air Capillary Refill : I&O Intake and Output 11/19/17 00:00 Intake Total 1125 ml Output Total 550 ml Balance 575 ml Intake Oral 1125 ml Output Urine Total 550 ml # Voids 5 # Bowel Movements 2 General: Alert, Oriented X3, Cooperative, No Acute Distress HEENT: Atraumatic, PERRLA, EOMI, Mucous Memb Moist/[place] Neck: Supple, No JVD Lungs: Clear to Auscultation Heart: Regular Rate, Normal S1, Normal S2, Other (S3 is present) Abdomen: Normal Bowel Sounds, Soft, No Tenderness Extremities: No Clubbing, No Cyanosis, Other (+1-2 pedal edema, upper extremities edema) Skin: Other (Chronic venous stasis changes) Neuro: Normal Speech, Normal Tone, Sensation Intact, Other (generalized weakness) Psych/Mental Status: Mental Status NL Results Lab Laboratory Tests 11/17/17 05:03: Glucometer 109 11/17/17 05:10: White Blood Count 8.5, Red Blood Count 5.02, Hemoglobin 14.9, Hematocrit 42, Mean Corpuscular Volume 83, Mean Corpuscular Hemoglobin 30, Mean Corpuscular Hemoglobin Concent 36, Red Cell Distribution Width 19.1H, Platelet Count 104L, Mean Platelet Volume 10.5H, Sodium Level 133L, Potassium Level 3.5L, Chloride Level 97L, Carbon Dioxide Level 24, Anion Gap 12, Blood Urea Nitrogen 25H, Creatinine 0.83, Estimat Glomerular Filtration Rate > 60, BUN/Creatinine Ratio 30, Glucose Level 118H, Calcium Level 8.6, Total Bilirubin 3.5H, Aspartate Amino Transf (AST/SGOT) 35H, Alanine Aminotransferase (ALT/SGPT) 22, Alkaline Phosphatase 133, Total Protein 6.2L, Albumin 2.8L 11/17/17 16:20: Glucometer 95 11/18/17 05:13: Glucometer 101 11/18/17 16:25: Glucometer 155H 11/19/17 06:26: Glucometer 88 11/19/17 15:56: Glucometer 116H Assessment/Plan Assessment General debil secondary to UTI with sepsis treated Nocturia most likely related diuresis-improved Acute on chronic Systolic CHF being followed by Cardiology A FIB being followed by Cardiology DM2 being followed by [facility] Accuchecks ordered Mild chronic thrombocytopenia HTN controlled 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 SINGH REYES MD Nov 19, 2017 20:46
--- NOTE | 2017-11-19 20:54 | Individualized Plan of Care ---
Individualized Plan of Care Rehab Nursing IPOC Order Admission Date Nov 14, 2017 at 11:00 Current Orders Orders Cho 60g/M 0snack (16-2000 Stone) (11/14/17 Lunch) Admission Order(Inpt,Obs,Sdc) (11/14/17 11:19) Vital Signs: Routine (Ord) 08,16,00 (11/14/17 11:19) Sequential Compression Device 08,20 (11/14/17 11:19) Security System Analyst-Inpt Rehab (11/14/17 11:19) Rehab Nursing Orders-Ipoc (11/14/17 11:19) Physical Therapy Rehab Orders (11/14/17 11:19) Occupational Therapy Rehab Ord (11/14/17 11:19) Speech Therapy Rehab Orders (11/14/17 11:19) Precautions (Aru) (11/14/17 11:19) Weekly Weight (Lbs) WEEK (11/14/17 11:19) Consult Physician (11/14/17 11:24) Admission Arrival Bed Request (11/14/17 11:26) Apixaban Tablet (Eliquis Tablet) (11/14/17 21:00) Carvedilol Tablet (Coreg Tablet) (11/14/17 21:00) Lactulose Oral Solution (Enulose Oral So (11/15/17 09:00) Allopurinol Tablet (Zyloprim Tablet) (11/15/17 09:00) Aspirin Enteric Coated Tablet (Ecotrin T (11/15/17 09:00) Furosemide Tablet (Lasix Tablet) (11/15/17 09:00) Glyburide Tablet (Micronase Tablet) (11/15/17 06:30) Lisinopril Tablet (Zestril Tablet) (11/15/17 09:00) Metolazone Tablet (Zaroxolyn Tablet) (11/15/17 09:00) Therapeutic Multivitamin Tab (Vitamins, (11/15/17 07:00) Potassium Chloride (Tablet) (Klor Con Ta (11/15/17 07:00) Cho 60g/M 1snack (16-2000 Stone) (11/14/17 Lunch) Patient Visit (11/14/17 ) Pt Eval Moderate Complexity (11/14/17 ) Exercise Therap, Ea 15 Min (11/14/17 ) Patient Visit (11/14/17 ) Speech Sound Lang Comp (11/14/17 ) Patient Visit (11/14/17 ) Exercise Therap, Ea 15 Min (11/14/17 ) Functional Activities, Ea 15 (11/14/17 ) Ambulate TID (11/14/17 18:18) Sequential Compression Device 08,20 (11/14/17 18:18) Dvt/Vte Risk - Notifiy Physici 08 (11/14/17 18:18) Consult Physician (11/14/17 19:36) Accucheck Bid DBID (11/15/17 09:22) Patient Visit (11/15/17 ) Functional Activities, Ea 15 (11/15/17 ) Exercise Therap, Ea 15 Min (11/15/17 ) Gait Training, Ea 15 Min (11/15/17 ) Therapeutic, Group (11/15/17 ) Advanced Wound Care Dressing O BID PRN (11/15/17 15:12) Advanced Wound Care Dressing O TID PRN (11/15/17 15:12) Nursing Communication (Ord) Q2HR (11/15/17 15:12) Zinc Oxide 16% Ointment (Butt Paste) (11/15/17 21:00) Us Noninvas Ext 3 Or >[id number] (11/16/17 08:00) Patient Visit (11/15/17 ) Functional Activities, Ea 15 (11/15/17 ) Exercise Therap, Ea 15 Min (11/15/17 ) Cbc No Diff (11/17/17 05:00) Comprehensive Metabolic Panel (11/17/17 05:00) Consult Physician (11/16/17 11:03) Patient Visit (11/16/17 ) Functional Activities, Ea 15 (11/16/17 ) Patient Visit (11/18/17 ) Exercise Therap, Ea 15 Min (11/18/17 ) Gait Training, Ea 15 Min (11/18/17 ) Functional Activities, Ea 15 (11/18/17 ) Therapeutic, Group (11/18/17 ) Sacubitril/Valsartan 24/26 Mg (Entresto (11/19/17 09:00) Patient Visit (11/19/17 ) Gait Training, Ea 15 Min (11/19/17 ) Functional Activities, Ea 15 (11/19/17 ) Exercise Therap, Ea 15 Min (11/19/17 ) Advanced Wound Care Dressing O DAILY PRN (11/19/17 18:20) Rehab Nursing Orders: Diseage Management, Edu in Press Rel Techn, Hydration Management, Nutrition Management, Pain Management Other Nursing Orders: ongoing wound care Monitor for constipation and urinary retention PT IPOC Problem List: Activity Tolerance, Functional Strength, Safety, Balance, Gait, Transfer, Bed Mobility, ROM Treatment Plan: Continue Plan of Care Bed Mobility, Concurrent Therapy, Education, Functional Activity Felecia, Functional Strength, Group Therapy, Gait, Safety, Therapeutic Exercise, Transfers Treatment Duration: Dec 06, 2017 Frequency: At least 5 of 7 days/Wk (IRF) Estimated Hrs Per Day: 1.5 hours per day OT IPOC Problems: Decreased Activ Tolerance, Decreased UE Strength, Dependent Transfers , Impaired I ADL's, Impaired Self-Care Skills OT Treatment, Training and Edu: Yes Plan of Care: ADL Retraining, Functional Mobility, UE Funct Exercise/Act Treatment Duration: Dec 12, 2017 Frequency: 5 times per week Estimated Hrs Per Day: 1.[address] IPOC Speech Therapy Treatment Plan: Discontinue ST Treatment Duration: Nov 19, 2017 Frequency: Modified Program (IRF) Estimated Hrs Per Day: Other Security System Analyst/Case Mgmt Security System Analyst/Case Managemen: Discharge Planning, Patient/Family Counseling Physician IPOC Medical Issues being managed closely and that require the 24 hour availability of a physician: CHF Ulcer rt leg Ischemic cardiomyopathy with EF 35 to 40 % cardiology following Persistent A FIB Medical Issues: DVT Prophylaxis, Falls Precautions, Fluid/Electrolyte/ Nutrition Balance, Infection Protection, Pain Management, Wound Care, Other ( List) (as per above) Brief Synthesis of Preadmission Screen, Post-Admission Evaluation, and Therapy Evaluations: 77 yo male who had been Modified Independent and living with family who had a decline in Functional Mobility due to acute exacerbation of CHF Being followed by [facility] and cardiology and Wound care Has multiple comorbidities as per H&P IGC CODE 20 Etiologic DX Acute on chronic CHF Medical Prognosis: good Anticipated Length of Stay: 4-12-18 Rehab Goals Modified Independent for adls and mobility skills Anticipated discharge destinat: Home with family and [facility] SINGH REYES MD Nov 19, 2017 20:54
[2017-11-20 05:55] VITALS: BP 97/61
[2017-11-20] MEDS: KCL 10 MEQ TAB (MICRO K) PO SCH (06:28)
[2017-11-20] MEDS: glyBURIDE 2.5 MG (MICRONASE) TAB PO SCH (06:28)
[2017-11-20] MEDS: MULTIVIT W/MINERALS TAB (THERAGRAN M) PO SCH (06:28)
[2017-11-20] MEDS: APIXABAN 2.5 MG (ELIQUIS) TABLET PO SCH ×2 (08:33→20:56)
[2017-11-20] MEDS: CARVEDILOL 3.125 MG (COREG) TABLET PO SCH ×2 (08:33→20:56)
[2017-11-20] MEDS: SACUBITRIL/VALSARTAN 24/26 MG (ENTRESTO) TABLET PO SCH ×2 (08:33→20:56)
[2017-11-20] MEDS: ALLOPURINOL 100 MG (ZYLOPRIM) TAB PO SCH (08:33)
[2017-11-20] MEDS: METOLAZONE 5 MG (ZAROXOLYN) TAB PO SCH (08:33)
[2017-11-20] MEDS: ZINC OXIDE 16% OINT (BUTT PASTE) 113 GM TUBE TOP SCH ×3 (08:34→20:56)
[2017-11-20] MEDS: FUROSEMIDE 20 MG (LASIX) TAB PO SCH (08:34)
[2017-11-20] MEDS: LACTULOSE SYRUP 10GM/15ML (ENULOSE) 30ML UDC PO SCH (08:34)
[2017-11-20] MEDS: ASPIRIN E.C. 81 MG (ECOTRIN) TAB PO SCH (08:34)
--- NOTE | 2017-11-20 09:24 | PM & R (SOAP) Progress Note ---
Subjective Time Seen by Provider: 08:05 Subjective/Events-last exam Patient was seen in his room this AM Patient min assist for transfers Objective Exam Last Set of Vital Signs Vital Signs Date Time Temp Pulse Resp B/P (MAP) Pulse Ox O2 Delivery O2 Flow Rate FiO2 11/20/17 05:55 96.1 77 20 97/61 (73) 94 Room Air Capillary Refill : I&O Intake and Output 11/20/17 00:00 Intake Total 1230 ml Output Total 1650 ml Balance -420 ml Intake Oral 1230 ml Output Urine Total 1650 ml # Bowel Movements 3 General: Alert, Oriented X3, Cooperative, No Acute Distress HEENT: Atraumatic, PERRLA, EOMI, Mucous Memb Moist/[place] Neck: Supple, No JVD Lungs: Clear to Auscultation Heart: Regular Rate, Normal S1, Normal S2, Other (S3 is present) Abdomen: Normal Bowel Sounds, Soft, No Tenderness Extremities: No Clubbing, No Cyanosis, Other (+1-2 pedal edema, upper extremities edema) Skin: Other (Chronic venous stasis changes) Neuro: Normal Speech, Normal Tone, Sensation Intact, Other (generalized weakness) Psych/Mental Status: Mental Status NL Results Lab Laboratory Tests 11/17/17 16:20: Glucometer 95 11/18/17 05:13: Glucometer 101 11/18/17 16:25: Glucometer 155H 11/19/17 06:26: Glucometer 88 11/19/17 15:56: Glucometer 116H 11/20/17 06:34: Glucometer 57*L 11/20/17 07:13: Glucometer 78 Assessment/Plan Assessment General debil secondary to UTI with sepsis treated Nocturia most likely related diuresis-improved Acute on chronic Systolic CHF being followed by Cardiology A FIB being followed by Cardiology DM2 being followed by Replaced By [facility] Accuchecks ordered Mild chronic thrombocytopenia HTN controlled Chronic Kidney D stage 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 SINGH REYES MD Nov 20, 2017 09:24
--- NOTE | 2017-11-20 10:12 | Occupational Ther Daily Note ---
OT Current Status-Daily Note Subjective Pt seen in room, up in bed, agreeable to OT. No pain mentioned. Appearance Alert, cooperative Mental Status/Objective Functional [place] Measure 0=Not Assessed/NA 4=Minimal Assistance 1=Total Assistance 5=Supervision or Setup 2=Maximal Assistance 6=Modified [place] 3=Moderate Assistance 7=Complete [place] ADL-Treatment Pt was able to get on/off BSC over toilet with SBA and was able to manage clothing and hygiene with SBA and extra time, FWW. Pt walked back to his bed and was able to get legs into bed with a little difficulty. Left with feet floating on pillow, 4 rails up, all needs met. Functional [place] Measure 0=Not Assessed/NA 4=Minimal Assistance 1=Total Assistance 5=Supervision or Setup 2=Maximal Assistance 6=Modified [place] 3=Moderate Assistance 7=Complete IndependenceIRFPAI Quality Coding Scale 6 Independent with activity with or without an assistive device 5 Patient requires set up or clean up by helper. Patient completes activity by themselves 4 Supervision or touching assist (CGA). [place] provide cues , steadying assist 3 The helper provides less than half the effort to complete the activity 2 The helper provides more than half the effort to complete the activity 1 Dependent. The helper does all the effort to complete an activity 7 Patient refused to complete or attempt activity 9 The patient did not perform the activity before the current illness or injury 88 Not attempted due to Medical conditions or safety concerns Toileting (FIM): 5 Toilet/Commode Transfer (FIM): 5 Other Treatment Pt was able to get up out of bed with CGA and walked CGA, FWW to gym (walker out in front of him). O2 sats remained around 95% after walk and when checked periodically throughout the treatment. Heart rate 55-65 throughout. pt did 12 minutes bilat UE exercise with arm bike set at 15W resistance (gentle). Pt took brief recovery breaks about every two minutes due to fatigue. Pt also did graded clothespins and nuts and bolts board with 1# weight on each arm, to strengthen arms to help with transfers and ADLs. Pt walked back to room with FWW , CGA and several cues to get closer to walker. Education OT Patient Education: Exercise program, Purpose of tx/functional activities Teaching Recipient: Patient Teaching Methods: Discussion Response to Teaching: Verbalize Understanding OT Short Term Goals Short Term Goals Time Frame: Nov 28, 2017 Eating(FIM): 5 Grooming(FIM): 5 Bathing(FIM): 3 Upper Body Dressing(FIM): 5 Lower Body Dressing(FIM): 4 Toileting(FIM): 5 Transfers (B,C,W/C) (FIM): 5 Toilet/Commode Transfer(FIM): 5 Shower Transfer(FIM): 4 Additional Short Term Goals: 1-Demonstrate ADL Tasks, 2-Verbalize Understanding , 3-ImproveStrength/Felecia 1=Demonstrate adherence to instructed precautions during ADL tasks. 2=Patient will verbalize/demonstrate understanding of assistive devices/ modifications for ADL. 3=Patient will improve strength/tolerance for activity to enable patient to perform ADL's. OT Film Printer Goals Intermediate Goals Time Frame: Dec 12, 2017 Eating (FIM): 6 Eating (QC): 6 Groomin Oral Hygiene (QC): 5 Bathing(FIM): 5 Shower/Bathe Self (QC): 5 Upper Body Dressing(FIM): 6 Upper Body Dressing (QC): 6 Lower Body Dressing(FIM): 5 Lower Body Dressing (QC): 5 On/Off Footwear (QC): 5 Toileting(FIM): 6 Toileting Hygiene (QC): 6 Transfers (B,C,W/C) (FIM): 6 Toilet/Commode Transfer(FIM): 6 Toilet/Commode Transfer (QC): 6 Shower Transfer(FIM): 5 Additional Goals: 1-Demonstrate ADL Tasks, 2-Verbalize Understanding, 3- ImproveStrength/Felecia 1=Demonstrate adherence to instructed precautions during ADL tasks. 2=Patient will verbalize/demonstrate understanding of assistive devices/ modifications for ADL. 3=Patient will improve strength/tolerance for activity to enable patient to perform ADL's. OT Education/Plan Discharge Recommendations Plan/Recommendations: Continue POC Treatment Plan/Plan of Care Patient would benefit from OT for education, treatment and training to promote independence in ADL's, mobility, safety and/or upper extremity function for ADL' s. Plan of Care: ADL Retraining, Functional Mobility, UE Funct Exercise/Act Treatment Duration: Dec 12, 2017 Frequency: 5 times per week Estimated Hrs Per Day: 1.5 hours per day Agreement: Yes Rehab Potential: Fair Time/GCodes Start Time: 09:00 Stop Time: 10:05 Total Time Billed (hr/min): 65 Billed Treatment Time visit, 50 minutes exercise, 15 minutes ADL MAICOL WRIGHT OT Nov 20, 2017 10:12
--- NOTE | 2017-11-20 11:11 | Physical Therapy Daily Note ---
PT Daily Note-Current Subjective Pt. states he would like to wear his shoes for gait this date. States he has help at home, his is healthy and he wants to go home "today" then smiles. Pain Numeric Pain Scale: 0-No Pain Appearance weaping edema in U&L extremities. edema in trunk, edema in scrotum as well Mental Status Patient Orientation: Normal For Age Transfers Functional [place] Measure 0=Not Assessed/NA 4=Minimal Assistance 1=Total Assistance 5=Supervision or Setup 2=Maximal Assistance 6=Modified [place] 3=Moderate Assistance 7=Complete IndependenceIRFPAI Quality Coding Scale 6 Independent with activity with or without an assistive device 5 Patient requires set up or clean up by helper. Patient completes activity by themselves 4 Supervision or touching assist (CGA). [place] provide cues , steadying assist 3 The helper provides less than half the effort to complete the activity 2 The helper provides more than half the effort to complete the activity 1 Dependent. The helper does all the effort to complete an activity 7 Patient refused to complete or attempt activity 9 The patient did not perform the activity before the current illness or injury 88 Not attempted due to Medical conditions or safety concerns Transfers (B, C, W/C) (FIM): 5 Scootin Rollin Roll Left to Right (QC): 5 Supine to/from Sit: 6 Sit to/from Stand: 5 Sit to Lying (QC): 6 Sit to Stand (QC): 5 Chair/Rrg-rj-Cytwn Xfer(QC): 5 Bed to/from Chair: 5 Car Transfer (QC): 5 Weight Bearing Right Lower Extremity: Right Full Weight Bearing Left Lower Extremity: Left Full Weight Bearing Gait Training Does the Patient Walk?: Yes Gait (FIM): 5 Distance (FIM): 3=150 ft (200x2) Walk 10 feet (QC): 5 Walk 50 ft with 2 Turns(QC): 5 Walk 150 ft (QC): 5 Walking 10ft/uneven surface-QC: 5 Gait Level of Assist: 5 Gait Persons Needed: 1 Gait Assistive Device: FWW pt maintains position far away from FWW, trunk flexed Stair Training Stair Training: Handrails/: 2 handrails Stairs (FIM): 5 #of Steps: 4 1 Step (curb) (QC): 5 4 Steps (QC): 5 Stairs: Pattern: Reciprocal Level of Assist: 5 Balance Special Test Comments unsafe to bend over for object Exercises Supine Ex: Bridging, Ankle pumps, Quad Set, Rolling, Glut sets, Heel Slides, Short Arc Quads, Scooting, Straight leg raise, Hip abd/add Supine Reps: 15 NuStep Minutes: 10 NuStep Workload: 4 Treatments sit to stands from recliner height simulating home x 5 SBA Assessment Current Status: Good Progress fatigues but quickly recovers PT Short Term Goals Short Term Goals Transfers (B,C,W/C) (FIM): 5 PT Batching Operator Goals Batching Operator Goals PT Batching Operator Goals Time Frame: Dec 06, 2017 Transfers (B,C,W/C) (FIM): 6 Sit to Lying (QC): 6 Lying-Sitting on Side/Bed(QC): 6 Sit to Stand (QC): 6 Rollin Roll Left to Right (QC): 6 Chair/Fyk-xe-Pfdtr Xfer(QC): 6 Car Transfer (QC): 6 Does the Patient Walk: Yes Gait (FIM): 6 Gait distance (FIM): 3=150 ft Distance: 150' Walk 10 feet (QC): 6 Walk 10ft-Uneven Surface(QC): 6 Walk 50ft with 2 Turns (QC): 6 Walk 150 ft (QC): 6 Gait Level of Assist: 6 Gait Assistive Device: FWW Stairs (FIM): 5 # of Steps: 8 1 Step (curb) (QC): 5 4 Steps (QC): 5 12 Steps (QC): 9 Stairs Level Of Assist: 5 Picking up an Object (QC): 5 PT Plan Treatment/Plan Treatment Plan: Continue Plan of Care Treatment Plan: Bed Mobility, Concurrent Therapy, Education, Functional Activity Felecia, Functional Strength, Group Therapy, Gait, Safety, Therapeutic Exercise, Transfers Treatment Duration: Dec 06, 2017 Frequency: At least 5 of 7 days/Wk (IRF) Estimated Hrs Per Day: 1.5 hours per day Patient and/or Family Agrees t: Yes Safety Risks/Education Patient Education: Gait Training, Transfer Techniques, Steps, Correct Positioning, Disease Process, Safety Issues Teaching Recipient: Patient Teaching Methods: Demonstration, Discussion Response to Teaching: Verbalize Understanding, Return Demonstration, Reinforcement Needed Time/GCodes Time In: 1015 Time Out: 1100 Total Billed Treatment Time: 45 Total Billed Treatment 1,EX15m,FA15m,GT15m G Codes Necessary: NAN Nicole DIVING SUPERVISOR Nov 20, 2017 11:11
--- NOTE | 2017-11-20 15:02 | Therapy Group Daily Note ---
Therapy Daily Group Note Patient Education Topic Other List Below Exercises LE Seated Exercise, UE Exercise Other/Notes Pt ambulated with CGA using FWW to OT/PT group. Group consisted of introductions (name, place living, "Remember when..."), socialization, pt led UE /LE seated exercises, education on work simplification and energy conservation. Pt introduced self appropriately and actively listened to peers introduce themselves. Pt verbalized understanding of educational topics and adaptive equipment that was introduced. Pt contributed to conversations throughout therapy and was attentive to peers opinions. Pt was able to lead peers in exercises. After group, pt lying in bed. Call light/phone in reach. All needs met in room. Start Time: 13:00 Stop Time: 14:20 Total Billed Treatment Time: 80 Total Billed Treatment 1-GRP LAMBERT BRITO Nov 20, 2017 15:02
--- NOTE | 2017-11-20 15:23 | Cardiology Progress Note ---
Cardiology SOAP Progress Note Subjective: Improved shortness of breath. Objective: I&O/Vital Signs Vital Sign - Last 12Hours 11/20/17 05:55 Temp 96.1 Pulse 77 Resp 20 B/P (MAP) 97/61 (73) Pulse Ox 94 O2 Delivery Room Air Intake and Output 11/20/17 00:00 Intake Total 980 ml Output Total 1000 ml Balance -20 ml Weight (Pounds): 189 Weight (Ounces): 12.0 Weight (Calculated Kilograms): 85.900527 Constitutional: No appears stated age, AAO x 3, No apparent distress, No PERRL , No well-developed, No well-nourished, No other Respiratory: No accessory muscle use, No respiratory distress, No chest tender , No chest expansion is symmetric, chest is bilaterally symmetric, No lungs clear to percussion, lungs clear to auscultation, No crackles, No rhonchi, No rales, No stridor, No wheezing, No pleural rub, No other Cardiovascular: regular rate-rhythm, No irregularly irregular, No extra beats, No parasternal heave is noted, No JVD, edema, No bradycardia, No tachycardia, No point of maximal impulse, No cardiac thrills are palpable, S1 and S2, No gallop/S3, No gallop/S4, No diastolic murmur, No systolic murmur, No friction rub, No click, No other Gastrointestional: No tender, No soft, No round, No distended, No pulsatile mass, No organomegaly, No guarding, No rebound, No tenderness, No hernia, No mass, No audible bowel sounds, No abnormal bowel sounds, No abdominal bruits, No spleenomegaly, No other Extremities: No normal range of motion, No non-tender, No normal inspection, pedal edema, No calf tenderness, No normal capillary refill, No pelvis stable, No calf tenderness, No inflammation, No pedal edema, No slow capillary refill, No swelling, No other, No abrasion, No clubbing, No cyanosis, No ecchymosis, No laceration, No no lower extremity edema bilateral, No significant edema, No tenderness, No wound Neurologic/Psychiatric: No director of regional sales II-XII nml as tested, No no motor/sensory deficits, alert, normal mood/affect, oriented x 3, No abnormal cerebellar tests , No abnormal director of regional sales II-XII, No abnormal gait, No aphasia, No EOM palsy, No facial droop, No motor weakness, No sensory deficit, No depressed affect, No disoriented x 3, No other, No grossly intact, No power is 5/5 both on sides Skin: No normal color, No warm/dry, No cyanosis, No cool, No diaphoresis, No damp, No ecchymosis, No jaundice, No mottled, No pallor, No rash, No tattoos/ piercings, No ulcerations, No rash on exposed areas, No ulcerations on exposed areas, No other Results/Procedures: Labs Laboratory Tests 11/19/17 15:56: Glucometer 116H 11/20/17 06:34: Glucometer 57*L 11/20/17 07:13: Glucometer 78 A/P: Assessment/Dx: Debility Congestive heart failure Coronary artery disease Chronic renal insufficiency Plan: Debility, generalized weakness, secondary to congestive heart failure and coronary artery disease receiving physical therapy, continue to monitor, no changes are recommended Congestive heart failure, acute on chronic left ventricular systolic dysfunction , ischemic cardiomyopathy, last evaluation estimated ejection fraction 15-20 percent. Still receiving aggressive diuresis. He is maintained on beta blockers. IJM inhibitor was discontinued, patient received the last dose on November 16, 2017, Entresto yesterday, continue to monitor. Large left pleural effusion seen on CT of the chest of 11-10-17 and CXR of , continue to monitor, followed and managed by primary care physician Peripheral edema, chronic venous stasis, continue with aggressive diuretics and monitor electrolytes closely, monitor renal function closely CAD with history of CABGx5 at [facility] 2012. Details of CABG unavailable. MPI of 05/19/15 did not show ischemia or infarction but there was LV enlargement and LVEF was 22%, no active chest pain. Continue to monitor Persistent a fib with poor vent rate control, treated with AVN ablation in mid Sep 2015 at [facility] by Dr Hernández. S/P ablation for atrial flutter by Dr. Hernández at [facility] by Dr. Hernández on 06/09/15, maintained on Xarelto. Monitor heart rate. No changes are recommended S/p single ch ICD implanted on 02/07/16, upgraded to [facility] by Dr Hernández in Sep 2015 , functioning normally on interrogation of June 2017, no changes are recommended Elevated bilirubin, indicative of jaundice of unknown etiology, continue to monitor. Hypertension, controlled. Continue to monitor with continued diuretics and monitor closely. Chronic renal insufficiency, chronic kidney disease stage IV, monitor renal function closely. Episode of wide complex tachycardia during hospitalization of January 20, 2016 H/o torsade de pointes, continue to monitor Diabetes mellitus, followed and managed by primary care physician Mild to moderate carotid arterial disease carotid u/s of October 2016 Gout in his left hand History of gynecomastia on spironolactone Mild chronic thrombocytopenia, continue to monitor platelets, followed and managed by primary care physician Thank you for your consultation. Please call me if you have any questions. Marissa Duarte MD, FACP, FACC, FSCAI, FHRS, CCDS Interventional Cardiology Cardiac Electrophysiology Vascular Medicine and Endovascular Interventions Andrew DUARTE MD Nov 20, 2017 15:23
[2017-11-20 18:00] VITALS: BP 96/69
[2017-11-21 05:14] VITALS: BP 93/61
[2017-11-21] MEDS: glyBURIDE 2.5 MG (MICRONASE) TAB PO SCH (06:22)
[2017-11-21] MEDS: MULTIVIT W/MINERALS TAB (THERAGRAN M) PO SCH (06:22)
[2017-11-21] MEDS: KCL 10 MEQ TAB (MICRO K) PO SCH (06:22)
[2017-11-21] MEDS: LACTULOSE SYRUP 10GM/15ML (ENULOSE) 30ML UDC PO SCH (08:33)
[2017-11-21] MEDS: ASPIRIN E.C. 81 MG (ECOTRIN) TAB PO SCH (08:33)
[2017-11-21] MEDS: FUROSEMIDE 20 MG (LASIX) TAB PO SCH (08:33)
[2017-11-21] MEDS: CARVEDILOL 3.125 MG (COREG) TABLET PO SCH ×2 (08:33→20:52)
[2017-11-21] MEDS: SACUBITRIL/VALSARTAN 24/26 MG (ENTRESTO) TABLET PO SCH ×2 (08:33→20:52)
[2017-11-21] MEDS: APIXABAN 2.5 MG (ELIQUIS) TABLET PO SCH ×2 (08:33→20:52)
[2017-11-21] MEDS: METOLAZONE 5 MG (ZAROXOLYN) TAB PO SCH (08:33)
[2017-11-21] MEDS: ALLOPURINOL 100 MG (ZYLOPRIM) TAB PO SCH (08:33)
[2017-11-21] MEDS: ZINC OXIDE 16% OINT (BUTT PASTE) 113 GM TUBE TOP SCH ×3 (08:34→20:52)
--- NOTE | 2017-11-21 10:49 | Occupational Ther Daily Note ---
OT Current Status-Daily Note Subjective Pt seen in room, up in bed, agreeable to OT. No pain mentioned. Appearance Alert, coordinated Mental Status/Objective Functional [place] Measure 0=Not Assessed/NA 4=Minimal Assistance 1=Total Assistance 5=Supervision or Setup 2=Maximal Assistance 6=Modified [place] 3=Moderate Assistance 7=Complete [place] ADL-Treatment Pt got out of bed with SBA, FWW and walked to bathroom, with cues to keep walker closer throughout tx. He got on and off BSC over toilet with SBA and stood to wipe with SBA, FWW, leaning head against wall for support. He was incontinent of stool in his pants but did not want to take them off until he had shaved and brushed his teeth. He walked with SBA, FWW to sink to brush teeth and shave. He was unable to stand more than 2-3 minutes at a time and took three seated recovery breaks during ADL. He walked with SBA, FWW to shower and transferred in with CGA, grab bar, to shower bench. He used the grab bars to help with getting up and down and balanced with his head against the wall to wash and dry his bottom, with CGA for safety. He needed several seated recovery breaks during shower. He was too fatigued to walk out of the shower so transferred with CGA from bench to chair with arms placed beside shower. He completed dressing and walked back to bed, SBA, FWW, getting into bed with SBA, for dressing change. barrier cream applied to bottom before pulling pants up. Pt left in nursing care, all needs met. Functional [place] Measure 0=Not Assessed/NA 4=Minimal Assistance 1=Total Assistance 5=Supervision or Setup 2=Maximal Assistance 6=Modified [place] 3=Moderate Assistance 7=Complete IndependenceIRFPAI Quality Coding Scale 6 Independent with activity with or without an assistive device 5 Patient requires set up or clean up by helper. Patient completes activity by themselves 4 Supervision or touching assist (CGA). [place] provide cues , steadying assist 3 The helper provides less than half the effort to complete the activity 2 The helper provides more than half the effort to complete the activity 1 Dependent. The helper does all the effort to complete an activity 7 Patient refused to complete or attempt activity 9 The patient did not perform the activity before the current illness or injury 88 Not attempted due to Medical conditions or safety concerns Grooming (FIM): 5 (SBA standing at sink. Required several seated recovery breaks. Balanced at countertop with UEs, hips and head against wall.) Bathing (FIM): 4 (Pt washed and dried all parts, seated on bench, except needed CGA for standing to wash bottom. Shower bench, grab bars, hand held shower) Bathing Location: L Arm, R Arm, L Upper Leg, R Upper Leg, L Lower Leg ( including foot), R Lower Leg (including foot), Chest, Abdomen, Buttocks, Perineal Area Upper Body (FIM): 5 (Doffed and donned t shirt with setup) Lower Body Dressing (FIM): 4 (A little help needed to get pants on over feet but he was able to pull them up, CGA, FWW. He got slipper socks off and put shoes on with setup.) Toileting (FIM): 5 (SBA to wipe in standing. FWW, grab bar, BSC over toilet. Was incontinent small amount of BM in pants. Declined briefs) Toilet/Commode Transfer (FIM): 5 (SBA, getting on and off BSC over toilet, using grab bar and FWW) Shower Transfer(FIM): 4 (CGA, shower bench, grab bars) Education OT Patient Education: Modified ADL techniques, Progress toward Goal/Update tx plan, Purpose of tx/functional activities, Safety issues Teaching Recipient: Patient Teaching Methods: Demonstration, Discussion Response to Teaching: Verbalize Understanding, Return Demonstration, Reinforcement Needed OT Short Term Goals Short Term Goals Time Frame: Nov 28, 2017 Eating(FIM): 5 Grooming(FIM): 5 Bathing(FIM): 3 Upper Body Dressing(FIM): 5 Lower Body Dressing(FIM): 4 Toileting(FIM): 5 Transfers (B,C,W/C) (FIM): 5 Toilet/Commode Transfer(FIM): 5 Shower Transfer(FIM): 4 Additional Short Term Goals: 1-Demonstrate ADL Tasks, 2-Verbalize Understanding , 3-ImproveStrength/Felecia 1=Demonstrate adherence to instructed precautions during ADL tasks. 2=Patient will verbalize/demonstrate understanding of assistive devices/ modifications for ADL. 3=Patient will improve strength/tolerance for activity to enable patient to perform ADL's. OT Group Home Goals Group Home Goals Time Frame: Dec 12, 2017 Eating (FIM): 6 Eating (QC): 6 Groomin Oral Hygiene (QC): 5 Bathing(FIM): 5 Shower/Bathe Self (QC): 5 Upper Body Dressing(FIM): 6 Upper Body Dressing (QC): 6 Lower Body Dressing(FIM): 5 Lower Body Dressing (QC): 5 On/Off Footwear (QC): 5 Toileting(FIM): 6 Toileting Hygiene (QC): 6 Transfers (B,C,W/C) (FIM): 6 Toilet/Commode Transfer(FIM): 6 Toilet/Commode Transfer (QC): 6 Shower Transfer(FIM): 5 Additional Goals: 1-Demonstrate ADL Tasks, 2-Verbalize Understanding, 3- ImproveStrength/Felecia 1=Demonstrate adherence to instructed precautions during ADL tasks. 2=Patient will verbalize/demonstrate understanding of assistive devices/ modifications for ADL. 3=Patient will improve strength/tolerance for activity to enable patient to perform ADL's. OT Education/Plan Discharge Recommendations Plan/Recommendations: Continue POC Treatment Plan/Plan of Care Patient would benefit from OT for education, treatment and training to promote independence in ADL's, mobility, safety and/or upper extremity function for ADL' s. Plan of Care: ADL Retraining, Functional Mobility, UE Funct Exercise/Act Treatment Duration: Dec 12, 2017 Frequency: 5 times per week Estimated Hrs Per Day: 1.5 hours per day Agreement: Yes Rehab Potential: Fair Time/GCodes Start Time: 08:30 Stop Time: 09:35 Total Time Billed (hr/min): 65 Billed Treatment Time visit, 65 minutes ADL MAICOL WRIGHT OT Nov 21, 2017 10:49
--- NOTE | 2017-11-21 11:03 | Physical Therapy Daily Note ---
PT Daily Note-Current Subjective Pt. states "Im smiling b/c I a m going home Saturday!" Agrees to Rx. Pain Numeric Pain Scale: 0-No Pain Appearance damp pants secondary to slight incont. Assisted pt. to jaimie brief and change pants, Mental Status Patient Orientation: Normal For Age Transfers Functional Alloy Measure 0=Not Assessed/NA 4=Minimal Assistance 1=Total Assistance 5=Supervision or Setup 2=Maximal Assistance 6=Modified Alloy 3=Moderate Assistance 7=Complete IndependenceIRFPAI Quality Coding Scale 6 Independent with activity with or without an assistive device 5 Patient requires set up or clean up by helper. Patient completes activity by themselves 4 Supervision or touching assist (CGA). [place] provide cues , steadying assist 3 The helper provides less than half the effort to complete the activity 2 The helper provides more than half the effort to complete the activity 1 Dependent. The helper does all the effort to complete an activity 7 Patient refused to complete or attempt activity 9 The patient did not perform the activity before the current illness or injury 88 Not attempted due to Medical conditions or safety concerns Transfers (B, C, W/C) (FIM): 6 Scootin Rollin Supine to/from Sit: 6 Sit to/from Stand: 6 Bed to/from Chair: 6 Weight Bearing Right Lower Extremity: Right Full Weight Bearing Left Lower Extremity: Left Full Weight Bearing Gait Training Does the Patient Walk?: Yes Gait (FIM): 5 Distance (FIM): 3=150 ft (200x3) Gait Level of Assist: 5 Gait Persons Needed: 1 Gait Assistive Device: FWW slow, bent over FWW Stair Training Stair Training: Handrails/: 2 handrails Stairs (FIM): 5 #of Steps: 12 Stairs: Pattern: Reciprocal Level of Assist: 5 Exercises Seated Therapy Exercises: Ankle pumps, Sit to stand, Long arc quads, Hip flexion, Hip abd/add Seated Reps: 15 NuStep Minutes: 10 NuStep Workload: 4 Assessment Current Status: Good Progress long discussion with nursing regarding pts prognosis and that he really wants to be home, pts. condition chronic and declining PT Short Term Goals Short Term Goals Transfers (B,C,W/C) (FIM): 5 PT Half-Way Goals Half-Way Goals PT Half-Way Goals Time Frame: Dec 06, 2017 Transfers (B,C,W/C) (FIM): 6 Sit to Lying (QC): 6 Lying-Sitting on Side/Bed(QC): 6 Sit to Stand (QC): 6 Rollin Roll Left to Right (QC): 6 Chair/Akh-cv-Bvaan Xfer(QC): 6 Car Transfer (QC): 6 Does the Patient Walk: Yes Gait (FIM): 6 Gait distance (FIM): 3=150 ft Distance: 150' Walk 10 feet (QC): 6 Walk 10ft-Uneven Surface(QC): 6 Walk 50ft with 2 Turns (QC): 6 Walk 150 ft (QC): 6 Gait Level of Assist: 6 Gait Assistive Device: FWW Stairs (FIM): 5 # of Steps: 8 1 Step (curb) (QC): 5 4 Steps (QC): 5 12 Steps (QC): 9 Stairs Level Of Assist: 5 Picking up an Object (QC): 5 PT Plan Treatment/Plan Treatment Plan: Continue Plan of Care Treatment Plan: Bed Mobility, Concurrent Therapy, Education, Functional Activity Felecia, Functional Strength, Group Therapy, Gait, Safety, Therapeutic Exercise, Transfers Treatment Duration: Dec 06, 2017 Frequency: At least 5 of 7 days/Wk (IRF) Estimated Hrs Per Day: 1.5 hours per day Patient and/or Family Agrees t: Yes Safety Risks/Education Patient Education: Gait Training, Transfer Techniques, Steps, Correct Positioning, Disease Process, Safety Issues Teaching Recipient: Patient Teaching Methods: Demonstration, Discussion Response to Teaching: Verbalize Understanding, Return Demonstration, Reinforcement Needed Time/GCodes Time In: 1000 Time Out: 1100 Total Billed Treatment Time: 60 Total Billed Treatment 1,FA20m,EX25,GT15m G Codes Necessary: NAN Nicole PTA Nov 21, 2017 11:02
--- NOTE | 2017-11-21 14:13 | Occupational Ther Daily Note ---
OT Current Status-Daily Note Subjective Pt seen in room, up in bed, agreeable to OT. No pain mentioned. Pt reported that he hopes to go home on Saturday. Appearance Alert, cooperative Mental Status/Objective Functional Colbert Measure 0=Not Assessed/NA 4=Minimal Assistance 1=Total Assistance 5=Supervision or Setup 2=Maximal Assistance 6=Modified [place] 3=Moderate Assistance 7=Complete [place]bert ADL-Treatment Functional Colbert Measure 0=Not Assessed/NA 4=Minimal Assistance 1=Total Assistance 5=Supervision or Setup 2=Maximal Assistance 6=Modified [place] 3=Moderate Assistance 7=Complete IndependenceIRFPAI Quality Coding Scale 6 Independent with activity with or without an assistive device 5 Patient requires set up or clean up by helper. Patient completes activity by themselves 4 Supervision or touching assist (CGA). [place] provide cues , steadying assist 3 The helper provides less than half the effort to complete the activity 2 The helper provides more than half the effort to complete the activity 1 Dependent. The helper does all the effort to complete an activity 7 Patient refused to complete or attempt activity 9 The patient did not perform the activity before the current illness or injury 88 Not attempted due to Medical conditions or safety concerns Other Treatment Pt got up to EOB without assistance and struggled a little to stand, SBA, FWW. Pt walked to gym with SBA, FWW, cues to get closer to walker. He did not need a rest break on the way to the gym or on the way back. He did 10 minutes bilat UE exercise on the arm bike, set at 15W resistance. He was able to work 4.5 minutes before needing a recovery period, which is an improvement in activity tolerance from yesterday when he needed to stop about every 2 minutes. He took one more brief break after 3 minutes and worked at a steady pace. Metal Miner Blasting stopped in and said, "Good!" when he saw what equipment pt was using (this is frequently found in cardiac rehab programs). Pt walked back to room and needed just a little help to get L leg into bed. Pt left up in bed, 4 rails up, feet floating on pillows, all needs met. Education OT Patient Education: Exercise program, Progress toward Goal/Update tx plan, Purpose of tx/functional activities, Safety issues Teaching Recipient: Patient Teaching Methods: Discussion Response to Teaching: Verbalize Understanding, Return Demonstration, Reinforcement Needed OT Short Term Goals Short Term Goals Time Frame: Nov 28, 2017 Eating(FIM): 5 Grooming(FIM): 5 Bathing(FIM): 3 Upper Body Dressing(FIM): 5 Lower Body Dressing(FIM): 4 Toileting(FIM): 5 Transfers (B,C,W/C) (FIM): 5 Toilet/Commode Transfer(FIM): 5 Shower Transfer(FIM): 4 Additional Short Term Goals: 1-Demonstrate ADL Tasks, 2-Verbalize Understanding , 3-ImproveStrength/Felecia 1=Demonstrate adherence to instructed precautions during ADL tasks. 2=Patient will verbalize/demonstrate understanding of assistive devices/ modifications for ADL. 3=Patient will improve strength/tolerance for activity to enable patient to perform ADL's. OT Shelter Goals Physical Biochemist Goals Time Frame: Dec 12, 2017 Eating (FIM): 6 Eating (QC): 6 Groomin Oral Hygiene (QC): 5 Bathing(FIM): 5 Shower/Bathe Self (QC): 5 Upper Body Dressing(FIM): 6 Upper Body Dressing (QC): 6 Lower Body Dressing(FIM): 5 Lower Body Dressing (QC): 5 On/Off Footwear (QC): 5 Toileting(FIM): 6 Toileting Hygiene (QC): 6 Transfers (B,C,W/C) (FIM): 6 Toilet/Commode Transfer(FIM): 6 Toilet/Commode Transfer (QC): 6 Shower Transfer(FIM): 5 Additional Goals: 1-Demonstrate ADL Tasks, 2-Verbalize Understanding, 3- ImproveStrength/Felecia 1=Demonstrate adherence to instructed precautions during ADL tasks. 2=Patient will verbalize/demonstrate understanding of assistive devices/ modifications for ADL. 3=Patient will improve strength/tolerance for activity to enable patient to perform ADL's. OT Education/Plan Discharge Recommendations Plan/Recommendations: Continue POC Treatment Plan/Plan of Care Patient would benefit from OT for education, treatment and training to promote independence in ADL's, mobility, safety and/or upper extremity function for ADL' s. Plan of Care: ADL Retraining, Functional Mobility, UE Funct Exercise/Act Treatment Duration: Dec 12, 2017 Frequency: 5 times per week Estimated Hrs Per Day: 1.5 hours per day Agreement: Yes Rehab Potential: Fair Time/GCodes Start Time: 13:00 Stop Time: 13:30 Total Time Billed (hr/min): 30 Billed Treatment Time visit, 30 minutes exercise MAICOL WRIGHT OT Nov 21, 2017 14:13
--- NOTE | 2017-11-21 14:14 | Physical Therapy Daily Note ---
PT Daily Note-Current Subjective Pt. states he really wants to go home and hopes his understands all the particulars about his illness and managing it. Pain Numeric Pain Scale: 0-No Pain Mental Status Patient Orientation: Normal For Age Transfers Functional [place] Measure 0=Not Assessed/NA 4=Minimal Assistance 1=Total Assistance 5=Supervision or Setup 2=Maximal Assistance 6=Modified [place] 3=Moderate Assistance 7=Complete IndependenceIRFPAI Quality Coding Scale 6 Independent with activity with or without an assistive device 5 Patient requires set up or clean up by helper. Patient completes activity by themselves 4 Supervision or touching assist (CGA). [place] provide cues , steadying assist 3 The helper provides less than half the effort to complete the activity 2 The helper provides more than half the effort to complete the activity 1 Dependent. The helper does all the effort to complete an activity 7 Patient refused to complete or attempt activity 9 The patient did not perform the activity before the current illness or injury 88 Not attempted due to Medical conditions or safety concerns rolling and scooting up in bed as pt was very low in bed with feet against the foot board. took several tries but pt managed to scoot up in bed with HOB down and use of hand rails etc Weight Bearing Right Lower Extremity: Right Full Weight Bearing Left Lower Extremity: Left Full Weight Bearing Exercises Supine Ex: Bridging, Ankle pumps, Quad Set, Rolling, Heel Slides, Short Arc Quads, Scooting, Straight leg raise, Hip abd/add Supine Reps: 15 Assessment Current Status: Good Progress PT Short Term Goals Short Term Goals Transfers (B,C,W/C) (FIM): 5 PT Kitchen Lead Goals Kitchen Lead Goals PT Halfway Goals Time Frame: Dec 06, 2017 Transfers (B,C,W/C) (FIM): 6 Sit to Lying (QC): 6 Lying-Sitting on Side/Bed(QC): 6 Sit to Stand (QC): 6 Rollin Roll Left to Right (QC): 6 Chair/Trg-tq-Uredx Xfer(QC): 6 Car Transfer (QC): 6 Does the Patient Walk: Yes Gait (FIM): 6 Gait distance (FIM): 3=150 ft Distance: 150' Walk 10 feet (QC): 6 Walk 10ft-Uneven Surface(QC): 6 Walk 50ft with 2 Turns (QC): 6 Walk 150 ft (QC): 6 Gait Level of Assist: 6 Gait Assistive Device: FWW Stairs (FIM): 5 # of Steps: 8 1 Step (curb) (QC): 5 4 Steps (QC): 5 12 Steps (QC): 9 Stairs Level Of Assist: 5 Picking up an Object (QC): 5 PT Plan Treatment/Plan Treatment Plan: Continue Plan of Care Treatment Plan: Bed Mobility, Concurrent Therapy, Education, Functional Activity Felecia, Functional Strength, Group Therapy, Gait, Safety, Therapeutic Exercise, Transfers Treatment Duration: Dec 06, 2017 Frequency: At least 5 of 7 days/Wk (IRF) Estimated Hrs Per Day: 1.5 hours per day Patient and/or Family Agrees t: Yes Safety Risks/Education Patient Education: Transfer Techniques, Issued Written HEP Teaching Recipient: Patient Teaching Methods: Demonstration, Discussion Response to Teaching: Verbalize Understanding, Return Demonstration, Reinforcement Needed Time/GCodes Time In: 1345 Time Out: 1415 Total Billed Treatment Time: 30 Total Billed Treatment 1,EX20,FA10 G Codes Necessary: NAN Nicole ARABIC TRANSLATOR Nov 21, 2017 14:14
--- NOTE | 2017-11-21 15:31 | Cardiology Progress Note ---
Cardiology SOAP Progress Note Subjective: No shortness of breath. Objective: I&O/Vital Signs Vital Sign - Last 12Hours 11/21/17 05:14 Temp 98.2 Pulse 83 Resp 18 B/P (MAP) 93/61 (72) Pulse Ox 97 Intake and Output 11/21/17 00:00 Intake Total 1520 ml Output Total 925 ml Balance 595 ml Weight (Pounds): 194 Weight (Ounces): 4.8 Weight (Calculated Kilograms): 88.262938 Constitutional: No appears stated age, AAO x 3, No apparent distress, No PERRL , No well-developed, No well-nourished, No other Respiratory: No accessory muscle use, No respiratory distress, No chest tender , No chest expansion is symmetric, chest is bilaterally symmetric, No lungs clear to percussion, lungs clear to auscultation, No crackles, No rhonchi, No rales, No stridor, No wheezing, No pleural rub, No other Cardiovascular: regular rate-rhythm, No irregularly irregular, No extra beats, No parasternal heave is noted, No JVD, edema, No bradycardia, No tachycardia, No point of maximal impulse, No cardiac thrills are palpable, S1 and S2, No gallop/S3, No gallop/S4, No diastolic murmur, No systolic murmur, No friction rub, No click, No other Gastrointestional: No tender, No soft, No round, No distended, No pulsatile mass, No organomegaly, No guarding, No rebound, No tenderness, No hernia, No mass, No audible bowel sounds, No abnormal bowel sounds, No abdominal bruits, No spleenomegaly, No other Extremities: No normal range of motion, No non-tender, No normal inspection, pedal edema, No calf tenderness, No normal capillary refill, No pelvis stable, No calf tenderness, No inflammation, No pedal edema, No slow capillary refill, No swelling, No other, No abrasion, No clubbing, No cyanosis, No ecchymosis, No laceration, No no lower extremity edema bilateral, No significant edema, No tenderness, No wound Neurologic/Psychiatric: No driller multiple spindle II-XII nml as tested, No no motor/sensory deficits, alert, normal mood/affect, oriented x 3, No abnormal cerebellar tests , No abnormal driller multiple spindle II-XII, No abnormal gait, No aphasia, No EOM palsy, No facial droop, No motor weakness, No sensory deficit, No depressed affect, No disoriented x 3, No other, No grossly intact, No power is 5/5 both on sides Skin: No normal color, No warm/dry, No cyanosis, No cool, No diaphoresis, No damp, No ecchymosis, No jaundice, No mottled, No pallor, No rash, No tattoos/ piercings, No ulcerations, No rash on exposed areas, No ulcerations on exposed areas, No other Results/Procedures: Labs Laboratory Tests 11/20/17 17:16: Glucometer 144H 11/21/17 05:23: Glucometer 66L 11/21/17 16:11: Glucometer 63L A/P: Assessment/Dx: Debility Congestive heart failure Coronary artery disease Chronic renal insufficiency Plan: Debility, generalized weakness, secondary to congestive heart failure and coronary artery disease receiving physical therapy, continue to monitor, no changes are recommended Congestive heart failure, acute on chronic left ventricular systolic dysfunction , ischemic cardiomyopathy, last evaluation estimated ejection fraction 15-20 percent. Still receiving aggressive diuresis. He is maintained on beta blockers. JIM inhibitor was discontinued, patient received the last dose on November 16, 2017, Entresto yesterday, continue to monitor. Large left pleural effusion seen on CT of the chest of 11-10-17 and CXR of , continue to monitor, followed and managed by primary care physician Peripheral edema, chronic venous stasis, continue with aggressive diuretics and monitor electrolytes closely, monitor renal function closely CAD with history of CABGx5 at the [facility] February 2012. Details of CABG unavailable. MPI of 05/19/15 did not show ischemia or infarction but there was LV enlargement and LVEF was 22%, no active chest pain. Continue to monitor Persistent a fib with poor vent rate control, treated with AVN ablation in mid Sep 2015 at [facility] by Dr Hernández. S/P ablation for atrial flutter by Dr. Hernández at [facility] by Dr. Hernández on 06/09/15, maintained on Xarelto. Monitor heart rate. No changes are recommended S/p single ch ICD implanted on 02/07/16, upgraded to FIN[employer] SAL[employer]SULTANT-D by Dr Hernández in Sep 2015 , functioning normally on interrogation of June 2017, no changes are recommended Elevated bilirubin, indicative of jaundice of unknown etiology, continue to monitor. Hypertension, controlled. Continue to monitor with continued diuretics and monitor closely. Chronic renal insufficiency, chronic kidney disease stage IV, monitor renal function closely. Episode of wide complex tachycardia during hospitalization of January 20, 2016 H/o torsade de pointes, continue to monitor Diabetes mellitus, followed and managed by primary care physician Mild to moderate carotid arterial disease carotid u/s of October 2016 Gout in his left hand History of gynecomastia on spironolactone Mild chronic thrombocytopenia, continue to monitor platelets, followed and managed by primary care physician Thank you for your consultation. Please call me if you have any questions. Marissa Duarte MD, FACP, FACC, FSCAI, FHRS, CCDS Interventional Cardiology Cardiac Electrophysiology Vascular Medicine and Endovascular Interventions Andrew DUARTE MD Nov 21, 2017 3:31 pm
--- NOTE | 2017-11-21 15:59 | D/C HH Face to Face Order ---
D/C Face to Face Orders Instructions for Patient Patient Instructions/FollowUp: Dr. Judson Montes De Oca Physician to follow Patient: Dr. Roper Discharge Diet for Home: other diet (60 CHO) Patient Data-Allergies,Ht & Wt Patient Allergies: Coded Allergies: No Known Drug Allergies (Unverified , 04/17/15) Height (Feet): 6 Height (Inches): 0.00 Weight (Pounds): 194 Weight (Ounces): 4.8 Home Health Need/Face to Face Date of Face to Face: Nov 25, 2017 Clinical Findings: Generalized weakness and fatigue, Muscle weakness, Unsteady gait I have seen Pt [id number]: Yes Discharged To: Home Diagnosis/Conditions: Debility Problems/Diagnosis/Condition: Patient is Homebound due to: Alec fall risk due to instabilty, Muscle weakness Homebound Status Due to the above stated illness, injury or surgical procedure (medical condition or diagnosis) and associated clinical findings, the patient is homebound because of his/her inability to leave home except with aid of a supportive device and/or person AND leaving the home requires a considerable and taxing effort or is medically contraindicated. Pt req the following assistanc: Walker Home Health Nursing Orders Home Health Services Order: Nursing Services, Asbestos Brake Lining Finisher Helper-Evaluate & Treat, Physical Therapy-Evaluate & Treat Weekly labs to assess kidney functioning and ammonia levels daily dressing changes to R crouch-zeroform and abd pad, butt paste to coccyx cardiac monitoring for edema Therapy Orders Therapy Orders: OT (must have SN or PT order), Physical Therapy Therapy Specific Orders: Eval assistive deivces, Teach enviro modifications/ safety, Gait training, Increase strength/endurance Certify Stmt I certify that this patient is under my care and that I, a nurse practitioner or a physician; a assistant designer working with me, had a face to face encounter that - meets the physician face to face encounter requirements with this patient as dated. I personally scribed for SINGH REYES MD (CHARU) on 11/21/17 at 15:59. Electronically submitted by Angelina Mazariegos ([id number]). I personally scribed for SINGH REYES MD) on 11/22/17 at 13:15. Electronically submitted by Angelina Mazariegos ([id number]). I personally scribed for SINGH REYES MD (CHARU) on 11/22/17 at 13:16. Electronically submitted by Angelina Mazariegos ([id number]). I personally scribed for SINGH REYES MD (CHARU) on 11/22/17 at 13:18. Electronically submitted by Angelina Mazariegos ([id number]). SINGH REYES MD Nov 21, 2017 15:59
[2017-11-21 17:50] VITALS: BP 104/69
--- NOTE | 2017-11-21 19:55 | PM & R (SOAP) Progress Note ---
Subjective Time Seen by Provider: 19:45 Subjective/Events-last exam Patient was seen in his room this AM Diuresing with DR Hidalgo RX Patient using urinal with RNS assistance Patient Modified Independent for transfers SW informed me that Discharge to home set for Saturday11-25-17.Accuchecks low may need to hold Glipizide Objective Exam Last Set of Vital Signs Vital Signs Date Time Temp Pulse Resp B/P (MAP) Pulse Ox O2 Delivery O2 Flow Rate FiO2 11/21/17 17:50 97.9 73 18 104/69 (81) 96 Room Air Capillary Refill : I&O Intake and Output 11/21/17 00:00 Intake Total 1870 ml Output Total 1780 ml Balance 90 ml Intake Oral 1870 ml Output Urine Total 1780 ml # Voids 1 # Bowel Movements 1 General: Alert, Oriented X3, Cooperative, No Acute Distress HEENT: Atraumatic, PERRLA, EOMI, Mucous Memb Moist/Nellie Neck: Supple, No JVD Lungs: Clear to Auscultation Heart: Regular Rate, Normal S1, Normal S2, Other (S3 is present) Abdomen: Normal Bowel Sounds, Soft, No Tenderness Extremities: No Clubbing, No Cyanosis, Other (+1-2 pedal edema, upper extremities edema) Skin: Other (Chronic venous stasis changes) Neuro: Normal Speech, Normal Tone, Sensation Intact, Other (generalized weakness) Psych/Mental Status: Mental Status NL Results Lab Laboratory Tests 11/19/17 06:26: Glucometer 88 11/19/17 15:56: Glucometer 116H 11/20/17 06:34: Glucometer 57*L 11/20/17 07:13: Glucometer 78 11/20/17 17:16: Glucometer 144H 11/21/17 05:23: Glucometer 66L 11/21/17 16:11: Glucometer 63L Assessment/Plan Assessment General debil secondary to UTI with sepsis treated Nocturia most likely related diuresis-improved Acute on chronic Systolic CHF being followed by Cardiology A FIB being followed by Cardiology DM2 being followed by [facility]-BID Accuchecks ordered-quite low this AM Will follow-up Mild chronic thrombocytopenia HTN controlled Chronic Kidney D stage IV 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 SINGH REYES MD Nov 21, 2017 19:55
[2017-11-22 05:07] VITALS: BP 99/67
[2017-11-22] MEDS: glyBURIDE 2.5 MG (MICRONASE) TAB PO SCH (06:14)
[2017-11-22] MEDS: MULTIVIT W/MINERALS TAB (THERAGRAN M) PO SCH (06:14)
[2017-11-22] MEDS: KCL 10 MEQ TAB (MICRO K) PO SCH (06:14)
[2017-11-22] MEDS: APIXABAN 2.5 MG (ELIQUIS) TABLET PO SCH ×2 (08:03→20:55)
[2017-11-22] MEDS: ALLOPURINOL 100 MG (ZYLOPRIM) TAB PO SCH (08:03)
[2017-11-22] MEDS: METOLAZONE 5 MG (ZAROXOLYN) TAB PO SCH (08:03)
[2017-11-22] MEDS: ZINC OXIDE 16% OINT (BUTT PASTE) 113 GM TUBE TOP SCH ×3 (08:03→20:56)
[2017-11-22] MEDS: SACUBITRIL/VALSARTAN 24/26 MG (ENTRESTO) TABLET PO SCH ×2 (08:03→20:55)
[2017-11-22] MEDS: ASPIRIN E.C. 81 MG (ECOTRIN) TAB PO SCH (08:03)
[2017-11-22] MEDS: LACTULOSE SYRUP 10GM/15ML (ENULOSE) 30ML UDC PO SCH (08:03)
[2017-11-22] MEDS: FUROSEMIDE 20 MG (LASIX) TAB PO SCH (08:03)
[2017-11-22] MEDS: CARVEDILOL 3.125 MG (COREG) TABLET PO SCH ×2 (08:03→20:55)
--- NOTE | 2017-11-22 09:59 | Occupational Ther Daily Note ---
OT Current Status-Daily Note Subjective Pt in bed, agrees to treatment. Pt has no c/o pain. Mental Status/Objective Functional [place] Measure 0=Not Assessed/NA 4=Minimal Assistance 1=Total Assistance 5=Supervision or Setup 2=Maximal Assistance 6=Modified [place] 3=Moderate Assistance 7=Complete [place] ADL-Treatment Supine to sit with modified independence. Gait to restroom with FWW. Pt stood at sink to complete grooming tasks. Pt shaved and brushed teeth with SBA for balance. Required one sitting rest break secondary to fatigue. Transfer to [facility] over toilet with SBA. Pt able to manage clothing and hygiene with SBA, increased time. Transfer to walk in shower with CGA using grab bar for balance. Pt able to wash all areas, requires CGA for balance during standing to wash buttocks. Don pullover shirt with set up. Pt required minimal assistance to start Depends and pants over feet. Stood with supervision for pant hike. Increased time for ADL tasks. Pt sitting in recliner for dressing change after session, needs met. Functional [place] Measure 0=Not Assessed/NA 4=Minimal Assistance 1=Total Assistance 5=Supervision or Setup 2=Maximal Assistance 6=Modified [place] 3=Moderate Assistance 7=Complete IndependenceIRFPAI Quality Coding Scale 6 Independent with activity with or without an assistive device 5 Patient requires set up or clean up by helper. Patient completes activity by themselves 4 Supervision or touching assist (CGA). [place] provide cues , steadying assist 3 The helper provides less than half the effort to complete the activity 2 The helper provides more than half the effort to complete the activity 1 Dependent. The helper does all the effort to complete an activity 7 Patient refused to complete or attempt activity 9 The patient did not perform the activity before the current illness or injury 88 Not attempted due to Medical conditions or safety concerns Grooming (FIM): 5 Oral Hygiene (QC): 4 Bathing (FIM): 4 Shower/Bathe Self (QC): 4 Upper Body (FIM): 5 Upper Body Dressing (QC): 5 Lower Body Dressing (FIM): 4 Lower Body Dressing (QC): 3 Toileting (FIM): 5 Toileting Hygiene (QC): 4 Toilet/Commode Transfer (FIM): 5 Toilet Transfer (QC): 4 Shower Transfer(FIM): 4 OT Short Term Goals Short Term Goals Time Frame: Nov 28, 2017 Eating(FIM): 5 Grooming(FIM): 5 Bathing(FIM): 3 Upper Body Dressing(FIM): 5 Lower Body Dressing(FIM): 4 Toileting(FIM): 5 Transfers (B,C,W/C) (FIM): 5 Toilet/Commode Transfer(FIM): 5 Shower Transfer(FIM): 4 Additional Short Term Goals: 1-Demonstrate ADL Tasks, 2-Verbalize Understanding , 3-ImproveStrength/Felecia 1=Demonstrate adherence to instructed precautions during ADL tasks. 2=Patient will verbalize/demonstrate understanding of assistive devices/ modifications for ADL. 3=Patient will improve strength/tolerance for activity to enable patient to perform ADL's. OT Auto Rental Clerk Goals Auto Rental Clerk Goals Time Frame: Dec 12, 2017 Eating (FIM): 6 Eating (QC): 6 Groomin Oral Hygiene (QC): 5 Bathing(FIM): 5 Shower/Bathe Self (QC): 5 Upper Body Dressing(FIM): 6 Upper Body Dressing (QC): 6 Lower Body Dressing(FIM): 5 Lower Body Dressing (QC): 5 On/Off Footwear (QC): 5 Toileting(FIM): 6 Toileting Hygiene (QC): 6 Transfers (B,C,W/C) (FIM): 6 Toilet/Commode Transfer(FIM): 6 Toilet/Commode Transfer (QC): 6 Shower Transfer(FIM): 5 Additional Goals: 1-Demonstrate ADL Tasks, 2-Verbalize Understanding, 3- ImproveStrength/Felecia 1=Demonstrate adherence to instructed precautions during ADL tasks. 2=Patient will verbalize/demonstrate understanding of assistive devices/ modifications for ADL. 3=Patient will improve strength/tolerance for activity to enable patient to perform ADL's. OT Education/Plan Discharge Recommendations Plan/Recommendations: Continue POC Treatment Plan/Plan of Care Patient would benefit from OT for education, treatment and training to promote independence in ADL's, mobility, safety and/or upper extremity function for ADL' s. Plan of Care: ADL Retraining, Functional Mobility, UE Funct Exercise/Act Treatment Duration: Dec 12, 2017 Frequency: 5 times per week Estimated Hrs Per Day: 1.5 hours per day Agreement: Yes Rehab Potential: Fair Time/GCodes Start Time: 09:00 Stop Time: 10:00 Total Time Billed (hr/min): 60 Billed Treatment Time 1 visit, ADLx4(60minutes) RUDY NUNEZ OT Nov 22, 2017 09:59
--- NOTE | 2017-11-22 11:03 | Physical Therapy Daily Note ---
PT Daily Note-Current Subjective Agrees to Rx. FEeling well, has less edema Pain Numeric Pain Scale: 0-No Pain Mental Status Patient Orientation: Normal For Age Transfers Functional [place] Measure 0=Not Assessed/NA 4=Minimal Assistance 1=Total Assistance 5=Supervision or Setup 2=Maximal Assistance 6=Modified [place] 3=Moderate Assistance 7=Complete IndependenceIRFPAI Quality Coding Scale 6 Independent with activity with or without an assistive device 5 Patient requires set up or clean up by helper. Patient completes activity by themselves 4 Supervision or touching assist (CGA). [place] provide cues , steadying assist 3 The helper provides less than half the effort to complete the activity 2 The helper provides more than half the effort to complete the activity 1 Dependent. The helper does all the effort to complete an activity 7 Patient refused to complete or attempt activity 9 The patient did not perform the activity before the current illness or injury 88 Not attempted due to Medical conditions or safety concerns Transfers (B, C, W/C) (FIM): 6 Scootin Rollin Supine to/from Sit: 6 Sit to/from Stand: 6 Bed to/from Chair: 6 Weight Bearing Right Lower Extremity: Right Full Weight Bearing Left Lower Extremity: Left Full Weight Bearing Gait Training Does the Patient Walk?: Yes Gait (FIM): 5 Distance (FIM): 3=150 ft (x3) Gait Level of Assist: 5 Gait Persons Needed: 1 Gait Assistive Device: FWW flexed trunk, positioned far away from walker, unable to straighten Wheelchair Training Does the Pt Use a Wheelchair?: No Stair Training Stair Training: Handrails/: 2 handrails Stairs (FIM): 5 #of Steps: 4 Stairs: Pattern: Reciprocal Level of Assist: 5 Exercises Supine Ex: Bridging, Ankle pumps, Quad Set, Rolling, Glut sets, Heel Slides, Short Arc Quads, Scooting, Straight leg raise, Hip abd/add Supine Reps: 15 Seated Therapy Exercises: Ankle pumps, Sit to stand, Long arc quads, Hip flexion Seated Reps: 10 NuStep Minutes: 10 NuStep Workload: 4 Treatments stood to use urinal x2 with min assist to hole urinal Assessment Current Status: Good Progress meeting goals, may need help for standing to use urinal at home PT Short Term Goals Short Term Goals Transfers (B,C,W/C) (FIM): 5 PT Retirement Goals Retirement Goals PT Retirement Goals Time Frame: Dec 06, 2017 Transfers (B,C,W/C) (FIM): 6 Sit to Lying (QC): 6 Lying-Sitting on Side/Bed(QC): 6 Sit to Stand (QC): 6 Rollin Roll Left to Right (QC): 6 Chair/Cpz-lv-Ccsoe Xfer(QC): 6 Car Transfer (QC): 6 Does the Patient Walk: Yes Gait (FIM): 6 Gait distance (FIM): 3=150 ft Distance: 150' Walk 10 feet (QC): 6 Walk 10ft-Uneven Surface(QC): 6 Walk 50ft with 2 Turns (QC): 6 Walk 150 ft (QC): 6 Gait Level of Assist: 6 Gait Assistive Device: FWW Stairs (FIM): 5 # of Steps: 8 1 Step (curb) (QC): 5 4 Steps (QC): 5 12 Steps (QC): 9 Stairs Level Of Assist: 5 Picking up an Object (QC): 5 PT Plan Treatment/Plan Treatment Plan: Continue Plan of Care Treatment Plan: Bed Mobility, Concurrent Therapy, Education, Functional Activity Felecia, Functional Strength, Group Therapy, Gait, Safety, Therapeutic Exercise, Transfers Treatment Duration: Dec 06, 2017 Frequency: At least 5 of 7 days/Wk (IRF) Estimated Hrs Per Day: 1.5 hours per day Patient and/or Family Agrees t: Yes Safety Risks/Education Patient Education: Gait Training, Transfer Techniques, Steps, Correct Positioning, Disease Process, Safety Issues Teaching Recipient: Patient Teaching Methods: Demonstration, Discussion Response to Teaching: Verbalize Understanding, Return Demonstration, Reinforcement Needed Time/GCodes Time In: 1000 Time Out: 1100 Total Billed Treatment Time: 60 Total Billed Treatment 1,GT15m,EX20m,FA25m G Codes Necessary: NAN Nicole WARP STARTER Nov 22, 2017 11:03
--- NOTE | 2017-11-22 11:05 | PM & R (SOAP) Progress Note ---
Subjective Time Seen by Provider: 10:30 Subjective/Events-last exam Patient was seen in his room this AM Patient Modified Independent for transfers.Ulcer rt leg viewed healing well Discussed case with SW Discharge remains set for Saturday11-25-17 Objective Exam Last Set of Vital Signs Vital Signs Date Time Temp Pulse Resp B/P (MAP) Pulse Ox O2 Delivery O2 Flow Rate FiO2 11/22/17 05:07 97.6 80 18 99/67 (78) 96 Room Air Capillary Refill : I&O Intake and Output 11/22/17 00:00 Intake Total 1750 ml Output Total 1800 ml Balance -50 ml Intake Oral 1750 ml Output Urine Total 1800 ml # Bowel Movements 1 General: Alert, Oriented X3, Cooperative, No Acute Distress HEENT: Atraumatic, PERRLA, EOMI, Mucous Memb Moist/[place] Neck: Supple, No JVD Lungs: Clear to Auscultation Heart: Regular Rate, Normal S1, Normal S2, Other (S3 is present) Abdomen: Normal Bowel Sounds, Soft, No Tenderness Extremities: No Clubbing, No Cyanosis, Other (+1-2 pedal edema, upper extremities edema) Skin: Other (Chronic venous stasis changes) Neuro: Normal Speech, Normal Tone, Sensation Intact, Other (generalized weakness) Psych/Mental Status: Mental Status NL Results Lab Laboratory Tests 11/19/17 15:56: Glucometer 116H 11/20/17 06:34: Glucometer 57*L 11/20/17 07:13: Glucometer 78 11/20/17 17:16: Glucometer 144H 11/21/17 05:23: Glucometer 66L 11/21/17 16:11: Glucometer 63L 11/22/17 05:36: Glucometer 47*L 11/22/17 06:03: Glucometer 93 Assessment/Plan Assessment General debil secondary to UTI with sepsis treated Nocturia most likely related diuresis-improved Acute on chronic Systolic CHF being followed by Cardiology A FIB being followed by Cardiology DM2 being followed by [facility] Accuchecks ordered-quite low this AM Will follow-up Mild chronic thrombocytopenia HTN controlled Chronic Kidney D stage IV 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 SINGH REYES MD Nov 22, 2017 11:05
[2017-11-22] MEDS ORDERED: SACU1TAB PO (11:11)
[2017-11-22] MEDS ORDERED: APIX2.5T PO (11:11)
[2017-11-22] MEDS ORDERED: CARV3.122 PO (11:11)
[2017-11-22] MEDS ORDERED: LACT20SO2 PO (11:11)
[2017-11-22] MEDS ORDERED: ZINC28PA TOP (11:11)
--- NOTE | 2017-11-22 12:04 | Cardiology Progress Note ---
Cardiology SOAP Progress Note Subjective: No shortness of breath. Objective: I&O/Vital Signs Vital Sign - Last 12Hours 11/22/17 05:07 Temp 97.6 Pulse 80 Resp 18 B/P (MAP) 99/67 (78) Pulse Ox 96 O2 Delivery Room Air Intake and Output 11/22/17 00:00 Intake Total 1600 ml Output Total 1100 ml Balance 500 ml Weight (Pounds): 185 Weight (Ounces): 8.0 Weight (Calculated Kilograms): [id number] Constitutional: No appears stated age, AAO x 3, No apparent distress, No PERRL , No well-developed, No well-nourished, No other Respiratory: No accessory muscle use, No respiratory distress, No chest tender , No chest expansion is symmetric, chest is bilaterally symmetric, No lungs clear to percussion, lungs clear to auscultation, No crackles, No rhonchi, No rales, No stridor, No wheezing, No pleural rub, No other Cardiovascular: regular rate-rhythm, No irregularly irregular, No extra beats, No parasternal heave is noted, No JVD, edema, No bradycardia, No tachycardia, No point of maximal impulse, No cardiac thrills are palpable, S1 and S2, No gallop/S3, No gallop/S4, No diastolic murmur, No systolic murmur, No friction rub, No click, No other Gastrointestional: No tender, No soft, No round, No distended, No pulsatile mass, No organomegaly, No guarding, No rebound, No tenderness, No hernia, No mass, No audible bowel sounds, No abnormal bowel sounds, No abdominal bruits, No spleenomegaly, No other Extremities: No normal range of motion, No non-tender, No normal inspection, pedal edema, No calf tenderness, No normal capillary refill, No pelvis stable, No calf tenderness, No inflammation, No pedal edema, No slow capillary refill, No swelling, No other, No abrasion, No clubbing, No cyanosis, No ecchymosis, No laceration, No no lower extremity edema bilateral, No significant edema, No tenderness, No wound Neurologic/Psychiatric: No chief clerk II-XII nml as tested, No no motor/sensory deficits, alert, normal mood/affect, oriented x 3, No abnormal cerebellar tests , No abnormal chief clerk II-XII, No abnormal gait, No aphasia, No EOM palsy, No facial droop, No motor weakness, No sensory deficit, No depressed affect, No disoriented x 3, No other, No grossly intact, No power is 5/5 both on sides Skin: No normal color, No warm/dry, No cyanosis, No cool, No diaphoresis, No damp, No ecchymosis, No jaundice, No mottled, No pallor, No rash, No tattoos/ piercings, No ulcerations, No rash on exposed areas, No ulcerations on exposed areas, No other Results/Procedures: Labs Laboratory Tests 11/21/17 16:11: Glucometer 63L 11/22/17 05:36: Glucometer 47*L 11/22/17 06:03: Glucometer 93 A/P: Assessment/Dx: Debility Congestive heart failure Coronary artery disease Chronic renal insufficiency Plan: Debility, generalized weakness, secondary to congestive heart failure and coronary artery disease receiving physical therapy, continue to monitor, no changes are recommended Congestive heart failure, acute on chronic left ventricular systolic dysfunction , ischemic cardiomyopathy, last evaluation estimated ejection fraction 15-20 percent. Still receiving aggressive diuresis. He is maintained on beta blockers. JIM inhibitor was discontinued, patient received the last dose on November 16, 2017, Entresto started, continue to monitor. Large left pleural effusion seen on CT of the chest of 11-10-17 and CXR of , continue to monitor, followed and managed by primary care physician Peripheral edema, chronic venous stasis, continue with aggressive diuretics and monitor electrolytes closely, monitor renal function closely CAD with history [facility] CABGx[facility] 2012. Details of CABG unavailable. MPI of 05/19/15 did not show ischemia or infarction but there was LV enlargement and LVEF was 22%, no active chest pain. Continue to monitor Persistent a fib with poor vent rate control, treated with AVN ablation in mid Sep 2015 at [facility] by Dr Hernández. S/P ablation for atrial flutter by Dr. Hernández at [facility] by Dr. Hernández on 06/09/15, maintained on Xarelto. Monitor heart rate. No changes are recommended S/p single ch ICD implanted on 02/07/16, upgraded to SENIOR INFORMATION SECURITY ENGINEER-D by Dr Hernández in Sep 2015 , functioning normally on interrogation of June 2017, no changes are recommended Elevated bilirubin, indicative of jaundice of unknown etiology, continue to monitor. Hypertension, controlled. Continue to monitor with continued diuretics and monitor closely. Chronic renal insufficiency, chronic kidney disease stage IV, monitor renal function closely. Episode of wide complex tachycardia during hospitalization of January 20, 2016 H/o torsade de pointes, continue to monitor Diabetes mellitus, followed and managed by primary care physician Mild to moderate carotid arterial disease carotid u/s of October 2016 Gout in his left hand History of gynecomastia on spironolactone Mild chronic thrombocytopenia, continue to monitor platelets, followed and managed by primary care physician Thank you for your consultation. Please call me if you have any questions. Marissa Duarte MD, FACP, FACC, FSCAI, FHRS, CCDS Interventional Cardiology Cardiac Electrophysiology Vascular Medicine and Endovascular Interventions Andrew DAURTE MD Nov 22, 2017 12:04
--- NOTE | 2017-11-22 14:40 | Therapy Group Daily Note ---
Therapy Daily Group Note Patient Education Topic Home Safety, Other List Below (continuum of care : acute to rehab to home) Exercises LE Seated Exercise, UE Exercise Other/Notes Pt. participated in PT OT group this date. Pt. ambulated FWW with SBA to from group. Pts socialized, introduced selves and shared mutual interests etc. Pts interacted with [employer] Home safety question/answer game with bag toss and seated U&L extremity exercises . Pts interacted well. Local resources after DC were shared. Pt to room after , call pisano at hand Start Time: 13:00 Stop Time: 14:10 Total Billed Treatment Time: 70 Total Billed Treatment 1,GRP NAN KING WOOD COATER Nov 22, 2017 14:40
[2017-11-22 18:18] VITALS: BP 108/65
[2017-11-23 05:17] VITALS: BP 97/62
[2017-11-23] MEDS: KCL 10 MEQ TAB (MICRO K) PO SCH (06:00)
[2017-11-23] MEDS: MULTIVIT W/MINERALS TAB (THERAGRAN M) PO SCH (06:00)
[2017-11-23] MEDS: glyBURIDE 2.5 MG (MICRONASE) TAB PO SCH (06:00)
[2017-11-23 08:30] VITALS: BP 94/62
[2017-11-23] MEDS: APIXABAN 2.5 MG (ELIQUIS) TABLET PO SCH ×2 (08:36→21:15)
[2017-11-23] MEDS: METOLAZONE 5 MG (ZAROXOLYN) TAB PO SCH (08:36)
[2017-11-23] MEDS: ZINC OXIDE 16% OINT (BUTT PASTE) 113 GM TUBE TOP SCH ×3 (08:36→21:15)
[2017-11-23] MEDS: ASPIRIN E.C. 81 MG (ECOTRIN) TAB PO SCH (08:36)
[2017-11-23] MEDS: SACUBITRIL/VALSARTAN 24/26 MG (ENTRESTO) TABLET PO SCH ×2 (08:37→21:15)
[2017-11-23] MEDS: ALLOPURINOL 100 MG (ZYLOPRIM) TAB PO SCH (08:37)
[2017-11-23] MEDS: FUROSEMIDE 20 MG (LASIX) TAB PO SCH (08:38)
[2017-11-23] MEDS: LACTULOSE SYRUP 10GM/15ML (ENULOSE) 30ML UDC PO SCH (08:39)
--- NOTE | 2017-11-23 11:45 | Physical Therapy Progress Note ---
Therapy Progress Note Pt in bed, requesting to stand to utilize urinal. Pt moved to standing EOB with SBA, stood to utilize urinal with SBA. Pt returned to lying down stating he needed to rest, "I didn't sleep worth a darn last night". Pt declined PT this date. Agreeable to ambulate this PM with nursing after resting. Returned to bed with alarm activated, SCDs in place. BERTIN BENEDICT DPT Nov 23, 2017 11:45
[2017-11-23 12:00] VITALS: BP 106/72
--- NOTE | 2017-11-23 12:10 | Wound Care Assessment ---
Wound Care Assessment Date Seen by Provider: Nov 23, 2017 Time Seen by Provider: 12:02 Chief Complaint R leg ulcer. HPI 77 year old male with debility and ulcers of R anterior calf. The wound is improved. The margins demonstrate a large amount of epithelialization. The patient is to be discharged in two days. He is encouraged to follow-up in [facility] to get his wound healed. He is reluctant to follow-up in Wound Care. Past Medical History: Admits Diabetes Type II, Admits Heart Disease, Admits Myocardial Infarction, Admits Peripheral Artery Disease Smoking Status: Never a Smoker Recreational Drug Use: No Alcohol Use: Denies Use Review of Systems Pulmonary: No Dyspnea Cardiovascular: No: Chest Pain Exam Vital Signs Date Time Temp Pulse Resp B/P (MAP) Pulse Ox O2 Delivery O2 Flow Rate FiO2 11/23/17 05:17 97.9 80 18 97/62 (74) 98 Room Air Capillary Refill : General Appearance: no apparent distress Respiratory: no respiratory distress Skin: other (R anterior calf ulcer -- 4.2 x 3.1 x 0.2 cm, 100% granulation tissue, large amount of epithelialization.) Results Laboratory Tests 11/22/17 16:26: Glucometer 77 11/23/17 04:51: Glucometer 84 Assessment/Plan/Dx 1. Venous insufficiency ulcer, R calf, full thickness. 2. Congestive heart failure. 3. Lymphedema. 4. Diabetes. Plan: Continue Xeroform/Kerlix/Nicola dressings daily. The patient is encouraged to elevate his legs. Xeroform only needs to cover wounded area. Kerlix and Nicola should be from base of toes to just below the knee. We will be glad to follow-up patient as out-patient, if he is willing. YOLANDA GRIGGS MD Nov 23, 2017 12:10
[2017-11-23] MEDS: CARVEDILOL 3.125 MG (COREG) TABLET PO SCH ×2 (12:32→21:15)
--- NOTE | 2017-11-23 13:52 | Cardiology Progress Note ---
Cardiology SOAP Progress Note Subjective: No shortness of breath. Objective: I&O/Vital Signs Vital Sign - Last 12Hours 11/23/17 11/23/17 11/23/17 12:00 17:56 21:13 Temp 97.1 Pulse 80 80 80 Resp 20 B/P (MAP) 106/72 (83) 91/59 (70) 110/63 (79) Pulse Ox 95 O2 Delivery Room Air Intake and Output 11/23/17 00:00 Intake Total 900 ml Output Total 850 ml Balance 50 ml Weight (Pounds): 186 Weight (Ounces): 0.0 Weight (Calculated Kilograms): 84.940600 Constitutional: No appears stated age, AAO x 3, No apparent distress, No PERRL , No well-developed, No well-nourished, No other Respiratory: No accessory muscle use, No respiratory distress, No chest tender , No chest expansion is symmetric, chest is bilaterally symmetric, No lungs clear to percussion, lungs clear to auscultation, No crackles, No rhonchi, No rales, No stridor, No wheezing, No pleural rub, No other Cardiovascular: regular rate-rhythm, No irregularly irregular, No extra beats, No parasternal heave is noted, No JVD, edema, No bradycardia, No tachycardia, No point of maximal impulse, No cardiac thrills are palpable, S1 and S2, No gallop/S3, No gallop/S4, No diastolic murmur, No systolic murmur, No friction rub, No click, No other Gastrointestional: No tender, No soft, No round, No distended, No pulsatile mass, No organomegaly, No guarding, No rebound, No tenderness, No hernia, No mass, No audible bowel sounds, No abnormal bowel sounds, No abdominal bruits, No spleenomegaly, No other Extremities: No normal range of motion, No non-tender, No normal inspection, pedal edema, No calf tenderness, No normal capillary refill, No pelvis stable, No calf tenderness, No inflammation, No pedal edema, No slow capillary refill, No swelling, No other, No abrasion, No clubbing, No cyanosis, No ecchymosis, No laceration, No no lower extremity edema bilateral, No significant edema, No tenderness, No wound Neurologic/Psychiatric: No city recorder II-XII nml as tested, No no motor/sensory deficits, alert, normal mood/affect, oriented x 3, No abnormal cerebellar tests , No abnormal city recorder II-XII, No abnormal gait, No aphasia, No EOM palsy, No facial droop, No motor weakness, No sensory deficit, No depressed affect, No disoriented x 3, No other, No grossly intact, No power is 5/5 both on sides Skin: No normal color, No warm/dry, No cyanosis, No cool, No diaphoresis, No damp, No ecchymosis, No jaundice, No mottled, No pallor, No rash, No tattoos/ piercings, No ulcerations, No rash on exposed areas, No ulcerations on exposed areas, No other Results/Procedures: Labs Laboratory Tests 11/23/17 04:51: Glucometer 84 11/23/17 15:53: Glucometer 140H A/P: Assessment/Dx: Debility Congestive heart failure-improved. Coronary artery disease Chronic renal insufficiency Plan: Debility, generalized weakness, secondary to congestive heart failure and coronary artery disease receiving physical therapy, continue to monitor, no changes are recommended Congestive heart failure, acute on chronic left ventricular systolic dysfunction , ischemic cardiomyopathy, last evaluation estimated ejection fraction 15-20 percent. Still receiving aggressive diuresis. He is maintained on beta blockers. JIM inhibitor was discontinued, patient received the last dose on November 16, 2017, Entresto started, continue to monitor. Large left pleural effusion seen on CT of the chest of 11-10-17 and CXR of , continue to monitor, followed and managed by primary care physician Peripheral edema, chronic venous stasis, continue with aggressive diuretics and monitor electrolytes closely, monitor renal function closely CAD with history of CABGx5 at the [facility] February 2012. Details of CABG unavailable. MPI of 05/19/15 did not show ischemia or infarction but there was LV enlargement and LVEF was 22%, no active chest pain. Continue to monitor Persistent a fib with poor vent rate control, treated with AVN ablation in mid Sep 2015 at [facility] by Dr Hernández. S/P ablation for atrial flutter by Dr. Hernández at [facility] by Dr. Hernández on 06/09/15, maintained on Xarelto. Monitor heart rate. No changes are recommended S/p single ch ICD implanted on 02/07/16, upgraded to ULTRASOUND TESTER-D by Dr Hernández in Sep 2015 , functioning normally on interrogation of June 2017, no changes are recommended Elevated bilirubin, indicative of jaundice of unknown etiology, continue to monitor. Hypertension, controlled. Continue to monitor with continued diuretics and monitor closely. Chronic renal insufficiency, chronic kidney disease stage IV, monitor renal function closely. Episode of wide complex tachycardia during hospitalization of January 20, 2016 H/o torsade de pointes, continue to monitor Diabetes mellitus, followed and managed by primary care physician Mild to moderate carotid arterial disease carotid u/s of October 2016 Gout in his left hand History of gynecomastia on spironolactone Mild chronic thrombocytopenia, continue to monitor platelets, followed and managed by primary care physician Thank you for your consultation. Please call me if you have any questions. Marissa Duarte MD, FACP, FACC, FSCAI, FHRS, CCDS Interventional Cardiology Cardiac Electrophysiology Vascular Medicine and Endovascular Interventions Andrew DUARTE MD Nov 23, 2017 1:52 pm
[2017-11-23 17:56] VITALS: BP 91/59
[2017-11-23 21:13] VITALS: BP 110/63
[2017-11-24 04:00] VITALS: BP 102/70
[2017-11-24] MEDS: MULTIVIT W/MINERALS TAB (THERAGRAN M) PO SCH (06:11)
[2017-11-24] MEDS: KCL 10 MEQ TAB (MICRO K) PO SCH (06:11)
[2017-11-24] MEDS: glyBURIDE 2.5 MG (MICRONASE) TAB PO SCH (06:11)
[2017-11-24 08:31] VITALS: BP 107/71
[2017-11-24] MEDS: METOLAZONE 5 MG (ZAROXOLYN) TAB PO SCH (08:31)
[2017-11-24] MEDS: FUROSEMIDE 20 MG (LASIX) TAB PO SCH (08:31)
[2017-11-24] MEDS: ALLOPURINOL 100 MG (ZYLOPRIM) TAB PO SCH (08:32)
[2017-11-24] MEDS: APIXABAN 2.5 MG (ELIQUIS) TABLET PO SCH ×2 (08:32→21:01)
[2017-11-24] MEDS: SACUBITRIL/VALSARTAN 24/26 MG (ENTRESTO) TABLET PO SCH ×2 (08:32→21:01)
[2017-11-24] MEDS: CARVEDILOL 3.125 MG (COREG) TABLET PO SCH ×2 (08:32→21:01)
[2017-11-24] MEDS: ZINC OXIDE 16% OINT (BUTT PASTE) 113 GM TUBE TOP SCH ×3 (08:32→21:01)
[2017-11-24] MEDS: ASPIRIN E.C. 81 MG (ECOTRIN) TAB PO SCH (08:32)
[2017-11-24] MEDS: LACTULOSE SYRUP 10GM/15ML (ENULOSE) 30ML UDC PO SCH (08:36)
--- NOTE | 2017-11-24 10:30 | Cardiology Progress Note ---
Cardiology SOAP Progress Note Subjective: No shortness of breath. Objective: I&O/Vital Signs Vital Sign - Last 12Hours 11/24/17 17:49 Temp 97.2 Pulse 80 Resp 16 B/P (MAP) 100/66 (77) Pulse Ox 97 O2 Delivery Room Air Intake and Output 11/24/17 00:00 Intake Total 1300 ml Output Total 1100 ml Balance 200 ml Weight (Pounds): 184 Weight (Ounces): 0.0 Weight (Calculated Kilograms): 83.647443 Constitutional: No appears stated age, AAO x 3, No apparent distress, No PERRL , No well-developed, No well-nourished, No other Respiratory: No accessory muscle use, No respiratory distress, No chest tender , No chest expansion is symmetric, chest is bilaterally symmetric, No lungs clear to percussion, lungs clear to auscultation, No crackles, No rhonchi, No rales, No stridor, No wheezing, No pleural rub, No other Cardiovascular: regular rate-rhythm, No irregularly irregular, No extra beats, No parasternal heave is noted, No JVD, edema, No bradycardia, No tachycardia, No point of maximal impulse, No cardiac thrills are palpable, S1 and S2, No gallop/S3, No gallop/S4, No diastolic murmur, No systolic murmur, No friction rub, No click, No other Gastrointestional: No tender, No soft, No round, No distended, No pulsatile mass, No organomegaly, No guarding, No rebound, No tenderness, No hernia, No mass, No audible bowel sounds, No abnormal bowel sounds, No abdominal bruits, No spleenomegaly, No other Extremities: No normal range of motion, No non-tender, No normal inspection, pedal edema, No calf tenderness, No normal capillary refill, No pelvis stable, No calf tenderness, No inflammation, No pedal edema, No slow capillary refill, No swelling, No other, No abrasion, No clubbing, No cyanosis, No ecchymosis, No laceration, No no lower extremity edema bilateral, No significant edema, No tenderness, No wound Neurologic/Psychiatric: No liquor tester II-XII nml as tested, No no motor/sensory deficits, alert, normal mood/affect, oriented x 3, No abnormal cerebellar tests , No abnormal liquor tester II-XII, No abnormal gait, No aphasia, No EOM palsy, No facial droop, No motor weakness, No sensory deficit, No depressed affect, No disoriented x 3, No other, No grossly intact, No power is 5/5 both on sides Skin: No normal color, No warm/dry, No cyanosis, No cool, No diaphoresis, No damp, No ecchymosis, No jaundice, No mottled, No pallor, No rash, No tattoos/ piercings, No ulcerations, No rash on exposed areas, No ulcerations on exposed areas, No other Results/Procedures: Labs Laboratory Tests 11/24/17 04:32: Glucometer 105 11/24/17 16:36: Glucometer 201H A/P: Assessment/Dx: Debility Congestive heart failure-improved. Coronary artery disease Chronic renal insufficiency Plan: Plan for patient to be discharged on Saturday11/25/2017. 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 Debility, generalized weakness, secondary to congestive heart failure and coronary artery disease receiving physical therapy, continue to monitor, no changes are recommended Congestive heart failure, acute on chronic left ventricular systolic dysfunction , ischemic cardiomyopathy, last evaluation estimated ejection fraction 15-20 percent. Still receiving aggressive diuresis. He is maintained on beta blockers. JIM inhibitor was discontinued, patient received the last dose on November 16, 2017, Entresto started earlier in the admission, continue to monitor. Large left pleural effusion seen on CT of the chest of 11-10-17 and CXR of , continue to monitor, followed and managed by primary care physician Peripheral edema, chronic venous stasis, continue with aggressive diuretics and monitor electrolytes closely, monitor renal function closely CAD with history of CABGx5 at the [facility] February 2012. Details of CABG unavailable. MPI of 05/19/15 did not show ischemia or infarction but there was LV enlargement and LVEF was 22%, no active chest pain. Continue to monitor Persistent a fib with poor vent rate control, treated with AVN ablation in mid Sep [address] [facility] by Dr Hernández. S/P ablation for atrial flutter by Dr. Hernández at [facility] by Dr. Hernández on 06/09/15, maintained on Xarelto. Monitor heart rate. No changes are recommended S/p single ch ICD implanted on 02/07/16, upgraded to PUBLIC HEALTH SANITARIAN-D by Dr Hernández in Sep 2015 , functioning normally on interrogation of June 2017, no changes are recommended Elevated bilirubin, indicative of jaundice of unknown etiology, continue to monitor. Hypertension, controlled. Continue to monitor with continued diuretics and monitor closely. Chronic renal insufficiency, chronic kidney disease stage IV, monitor renal function closely. Episode of wide complex tachycardia during hospitalization of January 20, 2016 H/o torsade de pointes, continue to monitor Diabetes mellitus, followed and managed by primary care physician Mild to moderate carotid arterial disease carotid u/s of October 2016 Thank you for your consultation. Please call me if you have any questions. Marissa Duarte MD, FACP, FACC, FSCAI, FHRS, CCDS Interventional Cardiology Cardiac Electrophysiology Vascular Medicine and Endovascular Interventions Andrew DUARTE MD Nov 24, 2017 10:30 am
[2017-11-24 17:49] VITALS: BP 100/66
[2017-11-25 05:07] VITALS: BP 100/64
[2017-11-25] MEDS: glyBURIDE 2.5 MG (MICRONASE) TAB PO SCH (05:59)
[2017-11-25] MEDS: KCL 10 MEQ TAB (MICRO K) PO SCH (06:00)
[2017-11-25] MEDS: MULTIVIT W/MINERALS TAB (THERAGRAN M) PO SCH (06:00)
[2017-11-25] MEDS: LACTULOSE SYRUP 10GM/15ML (ENULOSE) 30ML UDC PO SCH (07:55)
[2017-11-25] MEDS: METOLAZONE 5 MG (ZAROXOLYN) TAB PO SCH (07:55)
[2017-11-25] MEDS: ALLOPURINOL 100 MG (ZYLOPRIM) TAB PO SCH (07:55)
[2017-11-25] MEDS: CARVEDILOL 3.125 MG (COREG) TABLET PO SCH (07:56)
[2017-11-25] MEDS: ZINC OXIDE 16% OINT (BUTT PASTE) 113 GM TUBE TOP SCH (07:56)
[2017-11-25] MEDS: ASPIRIN E.C. 81 MG (ECOTRIN) TAB PO SCH (07:56)
[2017-11-25] MEDS: FUROSEMIDE 20 MG (LASIX) TAB PO SCH (07:56)
[2017-11-25] MEDS: SACUBITRIL/VALSARTAN 24/26 MG (ENTRESTO) TABLET PO SCH (07:56)
[2017-11-25] MEDS: APIXABAN 2.5 MG (ELIQUIS) TABLET PO SCH (07:56)
--- NOTE | 2017-11-25 08:59 | Physical Therapy Daily Note ---
PT Daily Note-Current Subjective Pt laying Supine in bed upon arrival. Pt agrees to PT for FIM scoring before discharging today. Pain Location: No Pain Reported Mental Status Patient Orientation: Person, Place, Time, Situation Transfers Functional [place] Measure 0=Not Assessed/NA 4=Minimal Assistance 1=Total Assistance 5=Supervision or Setup 2=Maximal Assistance 6=Modified [place] 3=Moderate Assistance 7=Complete IndependenceIRFPAI Quality Coding Scale 6 Independent with activity with or without an assistive device 5 Patient requires set up or clean up by helper. Patient completes activity by themselves 4 Supervision or touching assist (CGA). [place] provide cues , steadying assist 3 The helper provides less than half the effort to complete the activity 2 The helper provides more than half the effort to complete the activity 1 Dependent. The helper does all the effort to complete an activity 7 Patient refused to complete or attempt activity 9 The patient did not perform the activity before the current illness or injury 88 Not attempted due to Medical conditions or safety concerns Transfers (B, C, W/C) (FIM): 6 Scootin Rollin Roll Left to Right (QC): 6 Supine to/from Sit: 6 Sit to/from Stand: 6 Sit to Lying (QC): 6 Sit to Stand (QC): 6 Chair/Lmk-bh-Srwnv Xfer(QC): 6 Bed to/from Chair: 6 Car Transfer (QC): 6 Weight Bearing Right Lower Extremity: Right Full Weight Bearing Left Lower Extremity: Left Full Weight Bearing Gait Training Does the Patient Walk?: Yes Gait (FIM): 6 Distance (FIM): 3=150 ft Distance: 150' Walk 10 feet (QC): 6 Walk 50 ft with 2 Turns(QC): 6 Walk 150 ft (QC): 6 Walking 10ft/uneven surface-QC: 6 Gait Level of Assist: 6 Gait Persons Needed: 1 Gait Assistive Device: FWW Pt walks with slight kyphotic posture and occasionally needs reminder to bring FWW closer while ambulating. Wheelchair Training Does the Pt Use a Wheelchair?: No Stair Training Stair Training: Handrails/: 2 handrails Stairs (FIM): 6 #of Steps: 12 1 Step (curb) (QC): 6 4 Steps (QC): 6 12 Steps (QC): 6 Stairs: Pattern: Reciprocal Level of Assist: 6 Balance Picking up an Object (QC): 5 Treatments Pt transfers from Supine to sitting to standing using FWW at Mod I. Pt ambulates in hallway using FWW at Mod I. Pt able to walk across varying surface for at least 10', complete 3 sets of 4 stairs, pickle sorter object from floor & complete car transfer at SBA-Mod I. Pt returns to room to rest in bed at end of tx with all needs met. Assessment Current Status: Good Progress Pt has improved with safety & independence of transfers and mobility. PT Short Term Goals Short Term Goals Transfers (B,C,W/C) (FIM): 5 PT Lead Coater Goals Lead Coater Goals PT Senior Care Goals Time Frame: Dec 06, 2017 Transfers (B,C,W/C) (FIM): 6 Sit to Lying (QC): 6 Lying-Sitting on Side/Bed(QC): 6 Sit to Stand (QC): 6 Rollin Roll Left to Right (QC): 6 Chair/Bak-lw-Yltic Xfer(QC): 6 Car Transfer (QC): 6 Does the Patient Walk: Yes Gait (FIM): 6 Gait distance (FIM): 3=150 ft Distance: 150' Walk 10 feet (QC): 6 Walk 10ft-Uneven Surface(QC): 6 Walk 50ft with 2 Turns (QC): 6 Walk 150 ft (QC): 6 Gait Level of Assist: 6 Gait Assistive Device: FWW Stairs (FIM): 5 # of Steps: 8 1 Step (curb) (QC): 5 4 Steps (QC): 5 12 Steps (QC): 9 Stairs Level Of Assist: 5 Picking up an Object (QC): 5 PT Plan Problem List Problem List: Activity Tolerance Treatment/Plan Treatment Plan: Continue Plan of Care Treatment Plan: Bed Mobility, Concurrent Therapy, Education, Functional Activity [place], Functional Strength, Group Therapy, Gait, Safety, Therapeutic Exercise, Transfers Treatment Duration: Dec 06, 2017 Frequency: At least 5 of 7 days/Wk (IRF) Estimated Hrs Per Day: 1.5 hours per day Patient and/or Family Agrees t: Yes Safety Risks/Education Patient Education: Gait Training, Correct Positioning, Safety Issues Teaching Recipient: Patient Teaching Methods: Discussion Response to Teaching: Verbalize Understanding Time/GCodes Time In: 815 Time Out: 845 Total Billed Treatment Time: 30 Total Billed Treatment 1, GT (15m) & FA (15m) TREIBER,LAKESHA FASHION CONSULTANT Nov 25, 2017 08:59
--- NOTE | 2017-11-25 09:06 | Progress Note-Cardiology ---
Cardiology SOAP Progress Note Subjective: Up to the sink shaving. Denies SOB, CP or palpitations. C/O swelling in his feet, but feels it is better. No c/o syncope or near syncope. Objective: I&O/Vital Signs Vital Sign - Last 12Hours 11/25/17 05:07 Temp 97.9 Pulse 80 Resp 18 B/P (MAP) 100/64 (76) Pulse Ox 95 O2 Delivery Room Air Intake and Output 11/25/17 00:00 Intake Total 1010 ml Output Total 1450 ml Balance -440 ml Weight (Pounds): 185 Weight (Ounces): 0.0 Weight (Calculated Kilograms): 83.226325 Constitutional: AAO x 3 Respiratory: chest is bilaterally symmetric, other (diminished LLL) Cardiovascular: regular rate-rhythm, edema, S1 and S2 Gastrointestional: audible bowel sounds Extremities: pedal edema Neurologic/Psychiatric: grossly intact Skin: other (Drsg to RLE, D&I - not removed ) Results/Procedures: Labs Laboratory Tests 11/24/17 16:36: Glucometer 201H 11/25/17 05:17: Glucometer 123H A/P: Assessment: Generalized weakness - improved Congestive heart failure, acute on chronic left ventricular systolic dysfunction , ischemic cardiomyopathy, last evaluation estimated ejection fraction 15-20 percent. Continue Entresto Large left pleural effusion seen on CT of the chest of 11-10-17 and CXR of - management per pulmonary services CAD with history of CABGx5 at the [facility] February 2012. Details of CABG unavailable. MPI of 05/19/15 did not show ischemia or infarction but there was LV enlargement and LVEF was 22%, no active chest pain Persistent a fib with poor vent rate control, treated with AVN ablation in mid Sep 2015 at [facility] by Dr Hernández. S/P ablation for atrial flutter by Dr. Hernández at [facility] by Dr. Hernández on 06/09/15, maintained on Eliquis S/p single ch ICD implanted on 02/07/16, upgraded to FRANKFURTER INSPECTOR-D by Dr Hernández in Sep 2015 , functioning normally on interrogation of June 2017 Elevated bilirubin, indicative of jaundice of unknown etiology - management per medical services Hypertension, controlled Chronic renal insufficiency, chronic kidney disease stage IV, monitor renal function closely. Episode of wide complex tachycardia during hospitalization of January 20, 2016 H/o torsade de pointes, continue to monitor Diabetes mellitus, followed and managed by primary care physician Mild to moderate carotid arterial disease carotid u/s of October 2016 Plan: Plan per medical services is to discharge home today Continue current medication regimen Monitor lab as an out pt Out pt f/u Physician Assessment Physician Assessment Notes improvement of shortness of breath and edema. Does not report cp or palp or syncope Lungs: good air entry, but diminished at the L base Cor: irreg Ext: no c/c. Mild leg edema A&R * As documented in our note above that I updated (italics) at the time of this writing * Due to multiple comorbidities, management has been complex and has led to this long hospitalization * I had a detailed discussion with her and answered his questions * Close outpatient f/u is advised after discharge EDEL CHUN Nov 25, 2017 09:06 JESICA PATRICK MD FACP [facility] Nov 25, 2017 14:51
--- NOTE | 2017-11-25 09:25 | D/C HH Face to Face Order ---
D/C Face to Face Orders Instructions for Patient Patient Instructions/FollowUp: Dr. Judson Montes De Oca Physician to follow Patient: Dr. Roper Discharge Diet for Home: other diet (60 CHO) Patient Data-Allergies,Ht & Wt Patient Allergies: Coded Allergies: No Known Drug Allergies (Unverified , 04/17/15) Height (Feet): 6 Height (Inches): 0.00 Weight (Pounds): 185 Weight (Ounces): 8.0 Home Health Need/Face to Face Date of Face to Face: Nov 25, 2017 Clinical Findings: Generalized weakness and fatigue, Muscle weakness, Unsteady gait I have seen Pt [id number]: Yes Discharged To: Home Diagnosis/Conditions: Debility Problems/Diagnosis/Condition: Patient is Homebound due to: Alec fall risk due to instabilty, Muscle weakness Homebound Status Due to the above stated illness, injury or surgical procedure (medical condition or diagnosis) and associated clinical findings, the patient is homebound because of his/her inability to leave home except with aid of a supportive device and/or person AND leaving the home requires a considerable and taxing effort or is medically contraindicated. Pt req the following assistanc: [facility] Nursing Orders Home Health Services Order: Nursing Services, Director Of Strategic Marketing-Evaluate & Treat, Physical Therapy-Evaluate & Treat Weekly labs to assess kidney functioning and ammonia levels daily dressing changes to R crouch-zeroform and abd pad, butt paste to coccyx cardiac monitoring for edema Therapy Orders Therapy Orders: OT (must have SN or PT order), Physical Therapy Therapy Specific Orders: Eval assistive deivces, Teach enviro modifications/ safety, Gait training, Increase strength/endurance Certify Stmt I certify that this patient is under my care and that I, a nurse practitioner or a physician; a medical support assistant working with me, had a face to face encounter that - meets the physician face to face encounter requirements with this patient as dated. I personally scribed for SINGH REYES MD (CHARU) on 11/22/17 at 13:17. Electronically submitted by Angelina Mazariegos ([id number]). I personally scribed for SINGH REYES MD (CHARU) on 11/25/17 at 09:25. Electronically submitted by Angelina Mazariegos ([id number]). SINGH REYES MD Nov 22, 2017 13:17
--- NOTE | 2017-11-25 10:14 | Occupational Ther Daily Note ---
OT Current Status-Daily Note Subjective Pt in bed, agrees to treatment. Pt has no c/o pain, is eager to d/c home today. Mental Status/Objective Functional [place] Measure 0=Not Assessed/NA 4=Minimal Assistance 1=Total Assistance 5=Supervision or Setup 2=Maximal Assistance 6=Modified [place] 3=Moderate Assistance 7=Complete [place] ADL-Treatment Pt supine to sit with modified independence. Sit to stand with modified independence. Gait to restroom with FWW. Pt completed grooming at sink. Pt brushed teeth and shaved with modified independence. One brief seated rest break. Pt used urinal while standing with set up. Transfer to walk in shower with supervision for safety. Pt doffed clothing without assistance. Pt completed bathing using hand held shower. Pt able to wash/dry all areas with supervision. Stood with SBA to wash buttocks. Don pullover shirt with set up. Pt required minimal assistance to start Depends over feet. Pt states he doesn't think he will be wearing those at home. Don pants with supervision for balance during standing for pant hike. Pt declined to don socks, states he doesn't usually wear them at home. Pt donned slip on shoes with set up. Pt demonstrated ability to perform transfer to [facility] over toilet with modified independence using grab bars. Pt returned to bed, sit to supine with modified independence. Plan is for pt to d/c home today with spouse. Pt has no questions or concerns, states spouse will be available to assist as needed. Pt in bed with needs met after session. Functional [place] Measure 0=Not Assessed/NA 4=Minimal Assistance 1=Total Assistance 5=Supervision or Setup 2=Maximal Assistance 6=Modified [place] 3=Moderate Assistance 7=Complete IndependenceIRFPAI Quality Coding Scale 6 Independent with activity with or without an assistive device 5 Patient requires set up or clean up by helper. Patient completes activity by themselves 4 Supervision or touching assist (CGA). [place] provide cues , steadying assist 3 The helper provides less than half the effort to complete the activity 2 The helper provides more than half the effort to complete the activity 1 Dependent. The helper does all the effort to complete an activity 7 Patient refused to complete or attempt activity 9 The patient did not perform the activity before the current illness or injury 88 Not attempted due to Medical conditions or safety concerns Eating (FIM): 6 (Pt reports feeding self and managing containers) Eating (QC): 6 Grooming (FIM): 6 Oral Hygiene (QC): 6 Bathing (FIM): 5 Shower/Bathe Self (QC): 4 Upper Body (FIM): 5 Upper Body Dressing (QC): 5 Lower Body Dressing (FIM): 4 Lower Body Dressing (QC): 3 On/Off Footwear (QC): 5 Toileting (FIM): 5 Toileting Hygiene (QC): 5 Toilet/Commode Transfer (FIM): 6 Toilet Transfer (QC): 6 Shower Transfer(FIM): 5 OT Short Term Goals Short Term Goals Time Frame: Nov 28, 2017 Eating(FIM): 5 Grooming(FIM): 5 Bathing(FIM): 3 Upper Body Dressing(FIM): 5 Lower Body Dressing(FIM): 4 Toileting(FIM): 5 Transfers (B,C,W/C) (FIM): 5 Toilet/Commode Transfer(FIM): 5 Shower Transfer(FIM): 4 Additional Short Term Goals: 1-Demonstrate ADL Tasks, 2-Verbalize Understanding , 3-ImproveStrength/Felecia 1=Demonstrate adherence to instructed precautions during ADL tasks. 2=Patient will verbalize/demonstrate understanding of assistive devices/ modifications for ADL. 3=Patient will improve strength/tolerance for activity to enable patient to perform ADL's. OT Assistant Professor Of German Goals Alf Goals Time Frame: Dec 12, 2017 Eating (FIM): 6 (met 11/25/17) Eating (QC): 6 (6-MET) Groomin (met 11/25/17) Oral Hygiene (QC): 5 (6-exceeded) Bathing(FIM): 5 (met 11/25/17) Shower/Bathe Self (QC): 5 (4-not met) Upper Body Dressing(FIM): 6 (not met) Upper Body Dressing (QC): 6 (5-not met) Lower Body Dressing(FIM): 5 (not met) Lower Body Dressing (QC): 5 (4-not met) On/Off Footwear (QC): 5 (5-MET) Toileting(FIM): 6 (not met) Toileting Hygiene (QC): 6 (5-not met) Transfers (B,C,W/C) (FIM): 6 Toilet/Commode Transfer(FIM): 6 (met 11/25/17) Toilet/Commode Transfer (QC): 6 (6-MET) Shower Transfer(FIM): 5 (met 11/25/17) Additional Goals: 1-Demonstrate ADL Tasks, 2-Verbalize Understanding, 3- ImproveStrength/Felecia 1=Demonstrate adherence to instructed precautions during ADL tasks. 2=Patient will verbalize/demonstrate understanding of assistive devices/ modifications for ADL. 3=Patient will improve strength/tolerance for activity to enable patient to perform ADL's. OT Education/Plan Discharge Recommendations Plan/Recommendations: Continue POC Treatment Plan/Plan of Care Patient would benefit from OT for education, treatment and training to promote independence in ADL's, mobility, safety and/or upper extremity function for ADL' s. Plan of Care: ADL Retraining, Functional Mobility, UE Funct Exercise/Act Treatment Duration: Dec 12, 2017 Frequency: 5 times per week Estimated Hrs Per Day: 1.5 hours per day Agreement: Yes Rehab Potential: Fair Time/GCodes Start Time: 08:45 Stop Time: 09:35 Total Time Billed (hr/min): 50 Billed Treatment Time 1 visit, ADLx3(50minutes) RUDY NUNEZ OT Nov 25, 2017 10:14
--- NOTE | 2017-11-25 11:36 | Therapy Team Discharge Summary ---
Therapy Discharge Summary Discharge Recommendations Date of Discharge Therapy D/C Recommendations: Home w/ Family Support Occupational Therapy Pt admitted to ARU following acute hospitalization for acute heart failure. On admission pt required max assist for LE dressin, mod assist for bathing, and min assist for UE dressing and transfers. Skilled OT intervention focused on ADL training, transfers, strengthening, and safety education. Pt progressed with therapy and by discharge is completing eating, grooming, and toilet transfer with modified independence; bathing and UE dressing with set up; shower transfer and toileting with SBA. Min assist is required for LE dressing. Pt did not meet LTG for dressing or toileting, but met all other LTG. Plan is for pt to d/c home today with spouse. D/C ARU OT at this time. PT Redevelopment Specialist Goals Detention Goals PT Detention Goals Time Frame: Dec 06, 2017 Transfers (B,C,W/C) (FIM): 6 Roll Left to Right (QC): 6 Sit to Lying (QC): 6 Lying-Sitting on Side/Bed(QC): 6 Sit to Stand (QC): 6 Chair/Oiu-ru-Xpafy Xfer(QC): 6 Car Transfer (QC): 6 Does the Patient Walk: Yes Gait (FIM): 6 Gait distance (FIM): 3=150 ft Distance: 150' Walk 10 feet (QC): 6 Walk 10ft-Uneven Surface(QC): 6 Walk 50ft with 2 Turns (QC): 6 Walk 150 ft (QC): 6 Gait Level of Assist: 6 Gait Assistive Device: FWW Stairs (FIM): 5 # of Steps: 8 1 Step (curb) (QC): 5 4 Steps (QC): 5 12 Steps (QC): 9 Stairs Level Of Assist: 5 Picking up an Object (QC): 5 OT Redevelopment Specialist Goals Detention Goals Time Frame: Dec 12, 2017 Eating (FIM): 6 (met 11/25/17) Eating (QC): 6 (6-MET) Oral Hygiene (QC): 5 (6-exceeded) Grooming(FIM): 6 (met 11/25/17) Bathing(FIM): 5 (met 11/25/17) Shower/Bathe Self (QC): 5 (4-not met) Upper Body Dressing(FIM): 6 (not met) Upper Body Dressing (QC): 6 (5-not met) Lower Body Dressing(FIM): 5 (not met) Lower Body Dressing (QC): 5 (4-not met) On/Off Footwear (QC): 5 (5-MET) Toileting(FIM): 6 (not met) Toileting Hygiene (QC): 6 (5-not met) Transfers (B,C,W/C) (FIM): 6 Toilet/Commode Transfer(FIM): 6 (met 11/25/17) Toilet/Commode Transfer (QC): 6 (6-MET) Shower Transfer(FIM): 5 (met 11/25/17) Additional Goals: 1-Demonstrate ADL Tasks, 2-Verbalize Understanding, 3- ImproveStrength/Felecia 1=Demonstrate adherence to instructed precautions during ADL tasks. 2=Patient will verbalize/demonstrate understanding of assistive devices/ modifications for ADL. 3=Patient will improve strength/tolerance for activity to enable patient to perform ADL's. RUDY NUNEZ OT Nov 25, 2017 11:36
--- NOTE | 2017-11-25 13:41 | Therapy Team Discharge Summary ---
Therapy Discharge Summary Discharge Recommendations Date of Discharge 11/25/2017 Therapy D/C Recommendations: Home w/ Family Support Physical Therapy this patient has been seen on ARU post acute hospital admit for heart failure. Prior to his hospital stay, he was mod indep with functional mobility. Upon admit to ARU, he was min assist with transfers, amb 125 ft with FWW with min assist and went up/down steps with min assist. Treatment has consisted of functional strength and mobility as well as safety and balance training. He has made good progress and at dc he is mod indep with transfers, gait and stairs. He has met all goals. Pt to discharge at this time. C to follow. PT Prison Goals Correspondence Transcriber Goals PT Prison Goals Time Frame: Dec 06, 2017 Transfers (B,C,W/C) (FIM): 6 (met) Roll Left to Right (QC): 6 (met) Sit to Lying (QC): 6 (met) Lying-Sitting on Side/Bed(QC): 6 (met) Sit to Stand (QC): 6 (met) Chair/Nek-kn-Gyufh Xfer(QC): 6 (met) Car Transfer (QC): 6 (met) Does the Patient Walk: Yes Gait (FIM): 6 (met) Gait distance (FIM): 3=150 ft Distance: 150' Walk 10 feet (QC): 6 (met) Walk 10ft-Uneven Surface(QC): 6 (met) Walk 50ft with 2 Turns (QC): 6 (met) Walk 150 ft (QC): 6 (met) Gait Level of Assist: 6 Gait Assistive Device: FWW Stairs (FIM): 5 (exceeded) # of Steps: 8 1 Step (curb) (QC): 5 (met) 4 Steps (QC): 5 (met) 12 Steps (QC): 9 Stairs Level Of Assist: 5 Picking up an Object (QC): 5 (met) All goals set to a satisfactory level. OT Correspondence Transcriber Goals Prison Goals Time Frame: Dec 12, 2017 Eating (FIM): 6 (met 11/25/17) Eating (QC): 6 (6-MET) Oral Hygiene (QC): 5 (6-exceeded) Grooming(FIM): 6 (met 11/25/17) Bathing(FIM): 5 (met 11/25/17) Shower/Bathe Self (QC): 5 (4-not met) Upper Body Dressing(FIM): 6 (not met) Upper Body Dressing (QC): 6 (5-not met) Lower Body Dressing(FIM): 5 (not met) Lower Body Dressing (QC): 5 (4-not met) On/Off Footwear (QC): 5 (5-MET) Toileting(FIM): 6 (not met) Toileting Hygiene (QC): 6 (5-not met) Transfers (B,C,W/C) (FIM): 6 Toilet/Commode Transfer(FIM): 6 (met 11/25/17) Toilet/Commode Transfer (QC): 6 (6-MET) Shower Transfer(FIM): 5 (met 11/25/17) Additional Goals: 1-Demonstrate ADL Tasks, 2-Verbalize Understanding, 3- ImproveStrength/Felecia 1=Demonstrate adherence to instructed precautions during ADL tasks. 2=Patient will verbalize/demonstrate understanding of assistive devices/ modifications for ADL. 3=Patient will improve strength/tolerance for activity to enable patient to perform ADL's. LAMBERT OLIVA PT Nov 25, 2017 13:41
--- NOTE | 2017-11-25 19:16 | PM & R (SOAP) Progress Note ---
Subjective Time Seen by Provider: 12:00 Subjective/Events-last exam Patient discharged to home earlier today Has progressed well Appreciate Cardiology note Objective Exam Last Set of Vital Signs Vital Signs Date Time Temp Pulse Resp B/P (MAP) Pulse Ox O2 Delivery O2 Flow Rate FiO2 11/25/17 05:07 97.9 80 18 100/64 (76) 95 Room Air Capillary Refill : I&O Intake and Output 11/25/17 00:00 Intake Total 1250 ml Output Total 2050 ml Balance -800 ml Intake Oral 1250 ml Output Urine Total 2050 ml # Voids 1 # Bowel Movements 1 General: Alert, Oriented X3, Cooperative, No Acute Distress HEENT: Atraumatic, PERRLA, EOMI, Mucous Memb Moist/[place] Neck: Supple, No JVD Lungs: Clear to Auscultation Heart: Regular Rate, Normal S1, Normal S2, Other (S3 is present) Abdomen: Normal Bowel Sounds, Soft, No Tenderness Extremities: No Clubbing, No Cyanosis, Other (+1-2 pedal edema, upper extremities edema) Skin: Other (Chronic venous stasis changes) Neuro: Normal Speech, Normal Tone, Sensation Intact, Other (generalized weakness) Psych/Mental Status: Mental Status NL Results Lab Laboratory Tests 11/23/17 04:51: Glucometer 84 11/23/17 15:53: Glucometer 140H 11/24/17 04:32: Glucometer 105 11/24/17 16:36: Glucometer 201H 11/25/17 05:17: Glucometer 123H Assessment/Plan Assessment General debil secondary to UTI with sepsis treated Nocturia most likely related diuresis-improved Acute on chronic Systolic CHF being followed by Cardiology A FIB being followed by Cardiology DM2 being followed by [facility] Accuchecks ordered-quite low this AM Will follow-up Mild chronic thrombocytopenia HTN controlled Chronic Kidney D stage IV 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 . SINGH REYES MD Nov 25, 2017 19:16
== END 2017-11-25 13:00 | disposition home health service (06) | DRG 947 ==
PROVIDERS: ADMIT Physical Medicine & Rehabilitation; ATTEND Physical Medicine & Rehabilitation
DX: R53.1 Weakness (principal); R26.2 Difficulty in walking, not elsewhere classified; I50.23 Acute on chronic systolic (congestive) heart failure; I25.5 Ischemic cardiomyopathy; I48.1 Persistent atrial fibrillation; J90 Pleural effusion, not elsewhere classified; I12.9 Hypertensive chronic kidney disease with stage 1 through stage 4 chronic kidney disease, or unspecified chronic kidney disease; N18.4 Chronic kidney disease, stage 4 (severe); L97.219 Non-pressure chronic ulcer of right calf with unspecified severity; I25.10 Atherosclerotic heart disease of native coronary artery without angina pectoris; E11.9 Type 2 diabetes mellitus without complications; I87.2 Venous insufficiency (chronic) (peripheral); M10.9 Gout, unspecified; N62 Hypertrophy of breast; D69.6 Thrombocytopenia, unspecified; R32 Unspecified urinary incontinence; R15.9 Full incontinence of feces; I89.0 Lymphedema, not elsewhere classified; Z95.1 Presence of aortocoronary bypass graft; Z79.84 Long term (current) use of oral hypoglycemic drugs
CPT/HCPCS: 36415; 80053; 82962; 85027; 93923

== ENCOUNTER → 2017-11-27 | Outpatient (CLI) | payer MEDICARE, OTHER ==
[~2017-11-27] MED LIST changes: +CARV3.122 PO; +LACT20SO2 PO; +ZINC28PA TOP
== END ==
LOC: WOUNDCARE 08:52
PROVIDERS: ATTEND Surgery
DX: E11.622 Type 2 diabetes mellitus with other skin ulcer (principal); L97.222 Non-pressure chronic ulcer of left calf with fat layer exposed; I87.331 Chronic venous hypertension (idiopathic) with ulcer and inflammation of right lower extremity; I89.0 Lymphedema, not elsewhere classified; I50.9 Heart failure, unspecified
CPT/HCPCS: 11042

== ENCOUNTER → 2017-12-04 | Outpatient (CLI) | payer MEDICARE, OTHER | LOC: WOUNDCARE 09:02 | PROVIDERS: ATTEND Surgery | DX: E11.622 Type 2 diabetes mellitus with other skin ulcer (principal); L97.222 Non-pressure chronic ulcer of left calf with fat layer exposed; L89.613 Pressure ulcer of right heel, stage 3; I87.331 Chronic venous hypertension (idiopathic) with ulcer and inflammation of right lower extremity; I89.0 Lymphedema, not elsewhere classified; I50.9 Heart failure, unspecified | CPT/HCPCS: 11042 ==

== ENCOUNTER → 2017-12-11 | Outpatient (CLI) | payer MEDICARE, OTHER | LOC: WOUNDCARE 09:07 | PROVIDERS: ATTEND Surgery | DX: L89.613 Pressure ulcer of right heel, stage 3 (principal); E11.622 Type 2 diabetes mellitus with other skin ulcer; L97.222 Non-pressure chronic ulcer of left calf with fat layer exposed; I87.331 Chronic venous hypertension (idiopathic) with ulcer and inflammation of right lower extremity; I89.0 Lymphedema, not elsewhere classified; I50.9 Heart failure, unspecified | CPT/HCPCS: 11042 ==

== ENCOUNTER → 2017-12-18 | Outpatient (CLI) | payer MEDICARE, OTHER ==
[~2017-12-18] MED LIST changes: -AMIO200T2 PO; +AMIO200T4 PO; +BENA40TA5 PO; -BNZ40T PO; -SPIR25TA3 PO; +SPIR25TA5 PO
== END ==
LOC: WOUNDCARE 09:04
PROVIDERS: ATTEND Surgery
DX: L89.613 Pressure ulcer of right heel, stage 3 (principal); E11.622 Type 2 diabetes mellitus with other skin ulcer; I87.331 Chronic venous hypertension (idiopathic) with ulcer and inflammation of right lower extremity; L97.222 Non-pressure chronic ulcer of left calf with fat layer exposed; I89.0 Lymphedema, not elsewhere classified; I50.9 Heart failure, unspecified
CPT/HCPCS: 11042

== ENCOUNTER → 2018-01-01 | Outpatient (CLI) | payer MEDICARE, OTHER ==
[~2018-01-01] MED LIST changes: +AMIO200T2 PO; -AMIO200T4 PO; -BENA40TA5 PO; +BNZ40T PO; +SPIR25TA3 PO; -SPIR25TA5 PO
== END ==
LOC: WOUNDCARE 09:02
PROVIDERS: ATTEND Surgery
DX: L89.613 Pressure ulcer of right heel, stage 3 (principal); I87.321 Chronic venous hypertension (idiopathic) with inflammation of right lower extremity; I50.9 Heart failure, unspecified
CPT/HCPCS: 99212

== ENCOUNTER 2018-10-14 14:59 | Emergency (ER) | payer MEDICARE, OTHER ==
[~2018-10-14] VITALS: Ht 182.9 cm; Wt 78.5 kg
[~2018-10-14 14:59] MED LIST changes: -AMIO200T2 PO; +AMIO200T4 PO; -AMLO10TA2 PO; +AMLO10TA7 PO; +BENA40TA5 PO; -BNZ40T PO; -SPIR25TA3 PO; +SPIR25TA5 PO
--- OUTSIDE RECORDS SUMMARY | 2018-10-14 15:11 | XMS REPORT | Clinical Summary ---
Author Author [facility] Organization [facility] Address Unknown Phone Unavailable Care Team Providers Care Diesel Retrofit Designer Name Role Phone Kalina Garza Unavailable JudsonNidhi PCP Vickie Monroe RN Unavailable Unavailable Source Comments Some departments are not documenting in the electronic medical record. If you do not see the information that you expected, contact Release of Information in the Health Information Management department at [phone] for further assistance in locating additional records.[facility] Allergies No Known Allergies Medications End Date Status Medication Sig Dispensed Refills Start Date Active furosemide (LASIX) 40 mg Take 40 mg by 0 tablet mouth twice daily. Active glyBURIDE (DIABETA) 5 mg Take 2.5 mg 0 tablet by mouth daily with breakfast. Active COD LIVER OIL PO Take by 0 mouth daily. Active GARLIC PO Take by 0 mouth daily. Active apixaban (ELIQUIS) 5 mg Take 1 Tab by 30 Tab 0 tab tablet mouth twice 5 daily. Active sacubitril/valsartan Take 1 Tab by 0 (ENTRESTO) 24/26 mg mouth twice tablet daily. Active allopurinol (ZYLOPRIM) Take 100 mg 0 100 mg tablet by mouth daily. Take with food. Active metoprolol XL (TOPROL XL) Take 3 Tabs 90 Tab 3 25 mg extended release by mouth 7 tabletIndications: daily. chronic heart failure Indications: CHRONIC HEART FAILURE Active amiodarone (CORDARONE) Take 1 Tab by 90 Tab 3 200 mg tabletIndications: mouth daily. 7 Coronary artery disease Take with involving coronary bypass food. graft of [place] heart without angina pectoris, Essential hypertension, PVC's (premature ventricular contractions), Chronic combined systolic and diastolic congestive heart failure (HCC), Ischemic cardiomyopathy, Paroxysmal atrial fibrillation (HCC), Pleural effusion, ICD (implantable cardioverter-defibrillato r), biventricular, in situ, Typical atrial flutter (HCC), Type 2 diabetes mellitus with complication, without long-term current use of insulin (HCC), Torsades de pointes (HCC) Active spironolactone Take 1 Tab by 90 Tab 3 (ALDACTONE) 25 mg mouth daily. 7 tabletIndications: Take with Coronary artery disease food. involving coronary bypass graft of [place] heart without angina pectoris, Essential hypertension, PVC's [...] systolic and diastolic CHF, NYHA class 2 09/24/2016 Torsades de pointes 09/19/2016 ICD (implantable cardioverter-defibrillator), biventricular, in situ 2016 Overview: 2016 Single-chamber ICD ([employer]) 09/13/16 RV lead revision, RA/LV lead placement and upgrade to FARM EQUIPMENT OPERATOR-D (Defibrillation threshold testing (DFTs) at the time of implant) Paroxysmal atrial fibrillation 09/12/2016 Overview: 09/17/16 Tikosyn Initiation 09/13/16 AV Fantasma Radiofrequency Ablation Ischemic cardiomyopathy 09/05/2016 Overview: 04/08/16 implantation of ICD - functioning normally but with high pacing threshold. last interrogation 07/11/16 04/13/16 Echo: EF 20%, 10/14/15 Echo: LVEF 25% 05/24/15 MUGA LVEF 33%, 05/19/15 MPE LVEF 22% 04/18/15 - 04/18/15 Echo and CROW LVEF 35 - 40% 02/07/16 [facility]: Single chamber ICD implantation: [employer] Hailey passive dual coil 64 cm lead with model number 0286 and serial number [id number], lead - [employer] model E140 serial number [id number] Chronic combined systolic and diastolic congestive heart failure 05/17/2015 Typical atrial flutter 05/17/2015 Overview: 04/19/15: Successful DCCV. 04/19/15: CORW: EF 35-40%. Moderately impaired LV function. Moderate AV sclerosis. No thrombus. Mild MR. 04/18/15: Echo: LA size 5.1cm. EF 30%. 04/17/15: CT angio chest: No Pulm Embolism. Cardiac enlargement wit post sternotomy changes. Coronary artery disease involving coronary bypass graft of [place] heart without angina pectoris Overview: 2009: CABG at [facility]. CABG x 5 - CARDONA to LAD [...] Essential hypertension 05/17/2015 Type 2 diabetes mellitus 05/17/2015 Family History Relation Name Status Comments Father Mother Social History Date Tobacco Use Types Packs/Day Years Used Quit: 09/02/1984 Former Smoker Cigarettes 0.5 5 Smokeless Tobacco: Former Chew User Alcohol Use Drinks/Week oz/Week Comments No Sex Assigned at Date Recorded Not on file Industry Job Start Date Occupation Not on file Not on file Not on file Travel End Travel History Travel Start No recent travel history available. Last Filed Vital Signs Time Taken Vital Sign Reading 09/19/2016 12:08 PM LONG TERM CARE PHLEBOTOMIST Blood Pressure 94/63 09/19/2016 12:08 PM LONG TERM CARE PHLEBOTOMIST Pulse 80 09/19/2016 12:08 PM LONG TERM CARE PHLEBOTOMIST Temperature 36.5 C (97.7 F) - Respiratory Rate - 09/19/2016 12:08 PM LONG TERM CARE PHLEBOTOMIST Oxygen Saturation 97% - Inhaled Oxygen - Concentration 09/19/2016 6:00 AM LONG TERM CARE PHLEBOTOMIST Weight 89.8 kg (198 lb) 09/13/2016 7:51 PM LONG TERM CARE PHLEBOTOMIST Height 182.9 cm (6') 09/19/2016 6:00 AM LONG TERM CARE PHLEBOTOMIST Body Mass Index 26.85 Plan of Treatment Health Maintenance Due Date Last Done Comments PHYSICAL (COMPREHENSIVE) 1947 EXAM DILATED EYE EXAM 1959 DTAP/TDAP VACCINES (1 - 1959 Tdap) FOOT EXAM 1959 HBA1C 1959 MICROALBUMIN 1959 SHINGLES RECOMBINANT 1991 VACCINE (1 of 2) PNEUMONIA (PCV13/PPSV23) 2006 VACCINES (1 of 2 - PCV13) INFLUENZA VACCINE 04/02/2018 Implants Device Identifier Shelf Expiration Date Model / Serial / Lot Implanted Type Area Manufactur er Icd ICD Results Not on filefrom Last 3 Months Insurance Payer Benefit Subscriber ID Type Phone Address Plan / Group MEDICARE MEDICARE xxxxxxxxxx Medicare PART A AND B [place] [employer] x[employer] Advance Directives Patient has advance care planning documents, and code status on file. For more information, please contact: [facility] [address] [place] [address] Date Inactivated Comments Code Status Date Activated 09/19/2016 4:40 PM Full Code 09/12/2016 2:01 PM Provider has discussed Code Status No, more discussion w/Patient or Family? needed 06/10/2015 12:42 PM Full Code 06/09/2015 7:03 AM Provider has discussed Code Status No, more discussion w/Patient or Family? needed
--- OUTSIDE RECORDS SUMMARY | 2018-10-14 15:11 | XMS REPORT ---
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 Sep, Active 064662770 Problem Type 2 diabetes mellitus without complication E11.9 Active 185903572 Problem 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 Active 0287392558034 Problem Hyperbilirubinemia E80.6 Active 38985496 Problem 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 Active 210502910665330 Problem Non-ischemic cardiomyopathy I42.9 Apr, Active 03261871 Problem Risk for falls Z91.81 Active 555144018 Problem Chronic kidney disease, unspecified CKD stage N18.9 Active 891007135 Problem Increased ammonia level R79.89 Active 152994943 Problem Chronic atrial fibrillation I48.2 Active 109693868 Problem Hyperammonemia E72.20 Active 6921695 Problem Essential hypertension I10 Active 74047075 Problem Atypical atrial flutter I48.4 Apr, Active 5842891 Problem Hypokalemia E87.6 Active 68310990 Problem Dilated cardiomyopathy I42.0 Active 992021018 Problem Typical atrial flutter I48.3 Active 785525808 Problem Hx of renal calculi Z87.442 Active 413452481 Problem Nonsustained ventricular tachycardia I47.2 Active 335887783 Problem Acute on chronic systolic (congestive) heart failure I50.23 Active 964973415 Problem S/P CABG (coronary artery bypass graft) Z95.1 Active 007913979 Problem Chronic gout, unspecified cause, unspecified site M1A.9XX0 Active 89944608 Problem Persistent atrial fibrillation I48.1 Active 362079183 ALLERGIES No Known Allergies ENCOUNTERS Encounter Location Date Diagnosis [place] [id number] [place] [address] 60751- 9143 Apr, Chronic atrial fibrillation I48.2 and 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 [place] [id number] [place] [address] 20855- 3915 Apr, Type 2 diabetes mellitus without complication E11.9 ; Hypokalemia E87.6 ; Chronic atrial fibrillation I48.2 and Dilated cardiomyopathy I42.0 [place] [address] 66287- 8498 December, [place] [address] 38194- 4362 December, [place] [id number] [place] [address] 81700- 3331 Dec, Hyperammonemia E72.20 [place] [address] 74666- 8135 Oct, Increased ammonia level R79.89 ; Pleural effusion, left J90 ; Dilated cardiomyopathy I42.0 ; Weakness R53.1 ; Gait disturbance R26.9 and Diabetes mellitus E11.9 [place] [id number] [place] [address] 95960- 0965 Oct, [place] [id number] [place] [address] 41940- 5700 Oct, [place] [id number] [place] [address] 89037- 4797 Oct, [place] [id number] [place] [address] 75282- 0829 Oct, Weakness R53.1 and Gait disturbance R26.9 [place] [id number] [place] [address] 01587- 6432 Oct, Weakness R53.1 ; 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 ; Type 2 diabetes mellitus without complication E11.9 ; Chronic kidney disease, unspecified CKD stage N18.9 ; Chronic atrial fibrillation I48.2 and Hypokalemia E87.6 [place] [id number] [place] [address] 68759- 0015 Oct, Dilated cardiomyopathy I42.0 ; 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 ; Type 2 diabetes mellitus without complication E11.9 and Chronic atrial fibrillation I48.2 [place] [id number] [place] [address] 27080- 1715 Oct, [place] [id number] [place] [address] 94698- 1530 Oct, Hypokalemia E87.6 ; Other specified hypotension I95.89 ; Type 2 diabetes mellitus without complication E11.9 and Weakness R53.1 [place] [id number] [place] [address] 66815- 5257 Sep, Hypokalemia E87.6 [place] [id number] [place] [address] 92545- 4942 Sep, Chronic kidney disease, unspecified CKD stage N18.9 [place] [id number] [place] [address] 75451- 6411 Sep, Type 2 diabetes mellitus without complication E11.9 ; Cough R05 and Chronic kidney disease, unspecified CKD stage N18.9 [place] [address] [place] [address] 79090- 1123 Aug, Hypokalemia E87.6 and Acute bronchitis, unspecified organism J20.9 [place] [address] [place] [address] 98438- 3010 Aug, Gait disturbance R26.9 ; Risk for falls Z91.81 ; Acute bronchitis, unspecified organism J20.[address] [facility] [id number] [place] [address] 14562- 8185 08 Aug, [address] [facility] [id number] [place] [address] 33199- 9423 Jul, [facility] [id number] [place] [address] 06132- 3495 Jul, Encounter for immunization Z23 [facility] [address] 98978- 4110 Jun, Encounter for immunization Z23 [place] [address] 80781- 7130 Apr, Type 2 diabetes mellitus without complication E11.9 [place] [address] 26470- 0292 Mar, [facility] [address] 99969- 7504 Jan, 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 and Type 2 diabetes mellitus with hypoglycemia without coma, without long-term current use of insulin E11.649 [place] [address] [place] [address] 92828- 7884 Sep, Chronic gout, unspecified cause, unspecified site M1A.9XX0 [place] [id number] [place] [address] 34204- 4265 Sep, Type 2 diabetes mellitus without complication E11.9 [place] [id number] [place] [address] 57230- 8322 Sep, Persistent atrial fibrillation I48.1 ; 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 and Non-ischemic cardiomyopathy I42.9 [place] [address] [place] [address] 59807- 3647 Sep, Persistent atrial fibrillation I48.1 ; 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 and Non-ischemic cardiomyopathy I42.9 [place] [address] [place] [address] 51897- 0128 Aug, 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 [place] [id number] [place] [address] 52043- 1892 Jul, Type 2 diabetes mellitus without complication E11.9 [place] [address] [place] [address] 20781- 9568 Jul, 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 ; Typical atrial flutter I48.3 ; 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 ; Acute on chronic systolic (congestive) heart failure I50.23 ; Dilated cardiomyopathy I42.0 and Status post internal cardiac defibrillator procedure Z95.810 [place] [address] [place] [address] 69896- 6329 May, 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 ; Dilated cardiomyopathy I42.0 and Typical atrial flutter I48.3 [place] [address] [address]- 4109 Apr, [place] [address] [place] [address] 97309- 1827 Apr, 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 ; Type 2 diabetes mellitus without complication E11.9 and 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 [place] [id number] [place] [address] 54075- 1058 Apr, [place] [id number] [place] [address] 54285- 0032 Apr, [place] [id number] [place] [address] 47930- 6023 Apr, Dilated cardiomyopathy I42.0 ; 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 [id number] [place] [address] 33723- 1030 Jan, [facility] [id number] [place] [address] 28136- 2201 Jan, [place] [id number] [place] [address] 79537- 4234 December, [facility] [id number] [place] [address] 89608- 9151 December, [place] [id number] [place] [address] 09070- 8100 December, Type 2 diabetes mellitus with complication, without long- term current use of insulin E11.8 ; Hyperlipidemia, unspecified hyperlipidemia type E78.5 and Neuropathy G62.9 [place] [address] [place] [address] 82252- 2179 Dec, [place] [id number] [place] [address] 75705- 2063 Oct, [place] [address] [place] [address] 71870- 6642 Oct, Dilated cardiomyopathy I42.0 ; CAD (coronary artery disease ) I25.10 ; Typical atrial flutter I48.3 and Diabetes mellitus type II, controlled E11.9 [place] [address] [place] [address] 62245- 3796 Aug, Diabetes mellitus E11.9 and History of atrial flutter Z86.79 [place] [id number] [place] [address] 54967- 0708 May, [place] [id number] [place] [address] 15708- 1950 May, Hyperkalemia 276.7 and Atrial flutter 427.32 [place] [address] [address]- 2737 May, [facility] [id number] [place] [address] 02869- 9618 May, [facility] [id number] [place] [address] 69871- 0420 May, [facility] [id number] [place] [address] 46727- 2134 Apr, [facility] [address] [place] [address] 25224- 2198 Apr, A-fib 427.31 ; Chronic ischemic heart disease, 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 ; Ischemic cardiomyopathy 414.8 ; Chronic combined systolic and diastolic heart failure 428.42 and Diabetes with hyperosmolarity, type II or unspecified type, uncontrolled 250.22 [facility] [address] [place] [address] 65439- 4734 Apr, [facility] [address] [place] [address] 12906- 8017 Apr, [facility] [address] [place] [address] 51575- 0013 Apr, [facility] [address] [place] [address] 43001- 7439 Mar, CAD (coronary artery disease) 414.00 ; Diabetes mellitus, type 2 250.00 and HTN (hypertension), benign 401.1 [facility] [address] [place] [address] 34999- 3872 Mar, Diabetes mellitus, type II 250.00 and CAD (coronary artery disease) 414.00 [facility] [address] [place] [address] 42341- 6935 Mar, [facility] [id number] [place] [address] 85435- 6064 Mar, [facility] [address] [place] [address] 87238- 7100 Jan, [facility] [place] [facility] [address] [id number] [place] [address]- 7897 December, [facility] [place] [facility] [address] [id number] [place] [address]- 8826 December, [facility] [place] [facility] [address] [id number] [place] [address]- 8527 Dec, [facility] [place] [facility] [address] [id number] [place] [address]- 8940 Dec, [facility] [place] [facility] [address] [id number] [place] [address]- 5314 Oct, [facility] [place] [facility] [address] [id number] [place] [address]- 6348 Oct, [facility] [place] [facility] [address] [id number] [place] [address]- 1087 Sep, [facility] [place] [facility] [address] [id number] [place] [address]- 1279 Sep, [facility] [place] [facility] [address] [id number] [place] [address]- 7497 Sep, [facility] [place] [facility] [address] [id number] [place] [address]- 2112 Sep, [facility] [place] [facility] [address] [id number] [place] [address]- 0094 Aug, [facility] [place] [facility] [address] [id number] [address]- 4459 Aug, [facility] [place] [facility] [address] [id number] [place] [address]- 9411 Mar, [facility] [place] [facility] [address] [id number] [place] [address]- 1592 Mar, [facility] [place] [facility] [address] [id number] [place] [address]- 2080 Mar, [facility] [place] [facility] [address] [id number], [place] [address]- 6822 Mar, [facility] [address] [id number] [place] [address]- 4258 Mar, [facility] [place] [facility] [address] [id number] [place] [address]- 9971 Mar, [facility] [place] [facility] [address] [id number] [place] [address]- 7679 Mar, [facility] [place] [facility] [address] [id number] [place] [address]- 5993 Dec, [facility] [place] [facility] [address] [id number] [place] [address]- 1108 Dec, [facility] [place] [facility] [address] [id number] [place] [address]- 1777 Dec, [facility] [place] [facility] [address] [id number] [place] [address]- 4014 Dec, [facility] [place] [facility] [address] [id number] [place] [address]- 9495 Oct, [facility] [place] [facility] [address] [id number] [place] [address]- 5070 Oct, [facility] [place] [facility] [address] [facility] [id number] [place] [address]- 8009 May, [facility] [place] [facility] [address] [id number] [place] [address]- 4140 Apr, [facility] [place] [facility] [address] [id number] [place] [address]- 9371 Apr, [facility] [place] [facility] [address] [id number] [place] [address]- 8853 December, [facility] [place] [facility] [address] [id number] [place] [address]- 1183 Dec, [facility] [place] [facility] [address] [id number] [place] [address]- 8514 Sep, [facility] [place] [facility] [address] [id number] [place] [address]- 4996 Sep, [facility] [place] [facility] [address] [id number] [place] [address]- 7870 Sep, [facility] [place] [facility] [address] [id number] [place] [address]- 4376 Jul, [facility] [place] [facility] [address] [id number] [place] [address]- 9856 May, [facility] [place] [facility] [address] [id number] [place] [address]- 7778 May, [facility] [place] [facility] [address] [id number] [place] [address]- 0836 May, [facility] [place] [facility] [address] [id number] [place] [address]- 9874 Apr, [facility] [place] [facility] [address] [id number] [place] [address]- 9525 Apr, [facility] [place] [facility] [address] [id number] [place] [address]- 5680 Apr, [facility] [place] [facility] [address] [id number] [place] [address]- 9797 Mar, [facility] [place] [facility] [address] [id number] [place] [address]- 6988 Mar, [facility] [place] [facility] [address] [id number] [place] [address]- 9016 Dec, [facility] [place] [facility] [address] [id number] [place] [address]- 2693 Oct, [facility] [place] [facility] [address] [id number] [place] [address]- 1507 Oct, [facility] [place] [facility] [address] [id number] [place] [address]- 6798 Oct, [facility] [place] [facility] [address] [id number] [place] [address]- 9900 08 Nov, 2011 [facility] [address] [facility] [address] [id number] [address] 2546 Oct, [facility] [address] [facility] [address] [id number] [address]- 9676 Aug, [facility] [id number] [address] 2546 Sep[address] [facility] [address] [facility] [address] [id number] [address] 2546 May, [facility] [address] [facility] [address] [id number] [address]- 2576 Jul, [facility] [id number] [address]- 9506 Jul, [facility] [address] [facility] [address] [id number] [address]- 0585 10 May, 2009 IMMUNIZATIONS No Known Immunizations SOCIAL HISTORY Never Assessed REASON FOR VISIT Diabetes--Justin PLAN OF CARE Activity Details Follow Up 3 Months Reason:DM and fasting labs VITAL SIGNS Height 74 in 2018-04-14 Weight 171.5 lbs 2018-04-14 Temperature 98.3 degrees Fahrenheit 2018-04-14 Heart Rate 68 bpm 2018-04-14 BMI 22.02 kg/m2 2018-04-14 Blood pressure systolic 108 mmHg 2018-04-14 Blood pressure diastolic 70 mmHg 2018-04-14 MEDICATIONS Medication Instructions Dosage Frequency Start Date End Date Duration Status Blood Glucose Meter 1 glucometer test blood sugar 12h Sep, lifetime Active Allopurinol 100 mg Orally Once a day 1 tablet 24h 90 Active Eliquis 2.5 MG Orally 2 times a day 1 tablet 12h Apr, Active Entresto 24-26 MG Orally Twice a day 1 tablet 12h Active Aspir-81 81 MG Orally Once a day 1 tablet 24h Active Lancets Ultra Thin Lancets test blood sugar 12h Sep, 30 days Active Klor-Con 10 10 MEQ Orally Once a day 1 tablet 24h Active Garlic 1000 MG Orally Once a day 1 capsule 24h Active Blood Glucose Test Strip Test Strips test blood sugar 12h Sep, 30 days Active Cane - as directed Aug, Active Furosemide 40 MG Orally Once a day in the morning 2 tablets Active Zinc Oxide 28 Externally 3 times a day 1 application to affected area 8h Oct, Active Cod Liver Oil Active RESULTS No Results PROCEDURES Procedure Date Ordered Result Body Site GLYCATED HEMOGLOBIN TEST Apr 14, 2018 [facility], 2018 [facility] VISIT ESTABLISHED PATIENT Apr 14, 2018 VENIPUNCT, ROUTINE* Apr 14, 2018 INSTRUCTIONS MEDICATIONS ADMINISTERED No Known Medications MEDICAL (GENERAL) HISTORY Type Description Date Medical [...] device to pacemaker/ defibrillator 09/13/16 (Dr. Hernández) Medical History Hyperbilirubinemia Medical History Increased ammonia level Medical History Increased ammonia level Surgical History Cardiac Ablation Surgical History Cardiac Bypasses x5 2012 Surgical History History of placement of internal cardiac defibrillator ( [place]) 02/2016 Surgical History implantable cardioverter/defibrillator KU 09/2016 Surgical History AV node ablation 09/2016 Hospitalization History Heart Monitoring 2012 Hospitalization History influenza A, Sepsis, Pneumonia, Elevated liver enzymes -[facility] 10/21/16 Hospitalization History fatigue, observation 11/17
--- OUTSIDE RECORDS SUMMARY | 2018-10-14 15:12 | XMS REPORT ---
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 Sep, Active 366752761 Problem Type 2 diabetes mellitus without complication E11.9 Active 553412916 Problem 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 Active 5805503212290 Problem Hyperbilirubinemia E80.6 Active 27872866 Problem 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 Active 805002907091263 Problem Non-ischemic cardiomyopathy I42.9 Apr, Active 19760035 Problem Risk for falls Z91.81 Active 605484358 Problem Chronic kidney disease, unspecified CKD stage N18.9 Active 355317244 Problem Increased ammonia level R79.89 Active 020241534 Problem Chronic atrial fibrillation I48.2 Active 186320496 Problem Hyperammonemia E72.20 Active 2176830 Problem Essential hypertension I10 Active 71610108 Problem Atypical atrial flutter I48.4 Apr, Active 6058548 Problem Hypokalemia E87.6 Active 24610204 Problem Dilated cardiomyopathy I42.0 Active 075678219 Problem Typical atrial flutter I48.3 Active 189440700 Problem Hx of renal calculi Z87.442 Active 315284525 Problem Nonsustained ventricular tachycardia I47.2 Active 392626668 Problem Acute on chronic systolic (congestive) heart failure I50.23 Active 943491236 Problem S/P CABG (coronary artery bypass graft) Z95.1 Active 458357338 Problem Chronic gout, unspecified cause, unspecified site M1A.9XX0 Active 43112873 Problem Persistent atrial fibrillation I48.1 Active 587816899 ALLERGIES No Information ENCOUNTERS Encounter Location Date Diagnosis [facility] [id number] [place] [address] 71913- 1837 Apr, Chronic atrial fibrillation I48.2 and 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 [facility] [id number] [place] [address] 38420- 8714 Apr, Type 2 diabetes mellitus without complication E11.9 ; Hypokalemia E87.6 ; Chronic atrial fibrillation I48.2 and Dilated cardiomyopathy I42.0 [place] [address] 12191- 2598 December, [place] [facility] [address] 06323- 6612 December, [place] [address] 69879- 7604 Dec, Hyperammonemia E72.20 [place] [address] 57856- 0156 Oct, Increased ammonia level R79.89 ; Pleural effusion, left J90 ; Dilated cardiomyopathy I42.0 ; Weakness R53.1 ; Gait disturbance R26.9 and Diabetes mellitus E11.9 [place] [id number] [place] [address] 28464- 6500 Oct, [place] [id number] [place] [address] 72195- 5304 Oct, [place] [id number] [place] [address] 74899- 7423 Oct, [facility] [facility] [id number] [place] [address] 60198- 3719 Oct, Weakness R53.1 and Gait disturbance R26.9 [facility] [id number] [place] [address] 19839- 8280 Oct, Weakness R53.1 ; 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 ; Type 2 diabetes mellitus without complication E11.9 ; Chronic kidney disease, unspecified CKD stage N18.9 ; Chronic atrial fibrillation I48.2 and Hypokalemia E87.6 [place] [address] [place] [address] 97760- 8924 Oct, Dilated cardiomyopathy I42.0 ; 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 ; Type 2 diabetes mellitus without complication E11.9 and Chronic atrial fibrillation I48.2 [place] [id number] [place] [address] 65482- 4997 Oct, [place] [id number] [place] [address] 03719- 8134 Oct, Hypokalemia E87.6 ; Other specified hypotension I95.89 ; Type 2 diabetes mellitus without complication E11.9 and Weakness R53.1 [facility] [id number] [place] [address] 01567- 4279 Sep, Hypokalemia E87.6 [facility] [id number] [place] [address] 23533- 7852 Sep, Chronic kidney disease, unspecified CKD stage N18.9 [facility] [address] [place] [address] 08529- 3006 Sep, Type 2 diabetes mellitus without complication E11.9 ; Cough R05 and Chronic kidney disease, unspecified CKD stage N18.9 [place] [id number] [place] [address] 47105- 2253 Aug, Hypokalemia E87.6 and Acute bronchitis, unspecified organism J20.9 [place] [address] [place] [address] 09231- 3489 Aug, Gait disturbance R26.9 ; Risk for falls Z91.81 ; Acute bronchitis, unspecified organism J20.[address] [facility] [id number] [place] [address] 98214- 8480 08 Aug, [address] [facility] [id number] [place] [address] 71325- 0784 Jul, [facility] [id number] [place] [address] 97472- 5442 Jul, Encounter for immunization Z23 [facility] [address] 92262- 7854 Jun, Encounter for immunization Z23 [place] [address] 91785- 8874 Apr, Type 2 diabetes mellitus without complication E11.9 [place] [address] 26822- 8253 Mar, [place] [address] 08588- 8108 Jan, 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 and Type 2 diabetes mellitus with hypoglycemia without coma, without long-term current use of insulin E11.649 [place] [address] [place] [address] 87455- 9084 Sep, Chronic gout, unspecified cause, unspecified site M1A.9XX0 [facility] [address] [place] [address] 16972- 6518 Sep, Type 2 diabetes mellitus without complication E11.9 [place] [address] [place] [address] 93064- 3823 Sep, Persistent atrial fibrillation I48.1 ; 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 and Non-ischemic cardiomyopathy I42.9 [place] [address] [place] [address] 39151- 9674 Sep, Persistent atrial fibrillation I48.1 ; 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 and Non-ischemic cardiomyopathy I42.9 [place] [address] [place] [address] 44102- 6059 Aug, 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 [place] [address] [place] [address] 56111- 9381 Jul, Type 2 diabetes mellitus without complication E11.9 [place] [address] [place] [address] 22546- 4212 Jul, 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 ; Typical atrial flutter I48.3 ; 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 ; Acute on chronic systolic (congestive) heart failure I50.23 ; Dilated cardiomyopathy I42.0 and Status post internal cardiac defibrillator procedure Z95.810 [place] [address] [place] [address] 01186- 4094 May, 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 ; Dilated cardiomyopathy I42.0 and Typical atrial flutter I48.3 [place] [address] [address]- 2234 Apr, [facility] [id number] [place] [address] 06174- 2872 Apr, 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 ; Type 2 diabetes mellitus without complication E11.9 and 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 [facility] [id number] [place] [address] 98031- 7362 Apr, [place] [id number] [place] [address] 95619- 4855 Apr, [facility] [id number] [place] [address] 36457- 3966 Apr, Dilated cardiomyopathy I42.0 ; 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 ; Typical atrial flutter I48.3 and Automatic implantable cardioverter- defibrillator in situ Z95.810 [place] [address] [address]- 7273 Mar, Chronic gout, unspecified cause, unspecified site M1A.9XX0 [facility] [address] [address]- 2619 Mar, [place] [address] [address]- 1513 Jan, [place] [id number] [place] [address] 31863- 1840 Jan, Left arm swelling M79.89 ; Diabetes mellitus E11.9 and CAD ( coronary artery disease) I25.10 [place] [address] [address]- 7209 Jan, Essential hypertension I10 ; 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 [id number] [place] [address] 69617- 7208 Jan, [facility] [id number] [place] [address] 82958- 4467 Jan, [place] [id number] [place] [address] 40546- 0660 December, [facility] [id number] [place] [address] 69924- 3898 December, [place] [id number] [place] [address] 60348- 5529 December, Type 2 diabetes mellitus with complication, without long- term current use of insulin E11.8 ; Hyperlipidemia, unspecified hyperlipidemia type E78.5 and Neuropathy G62.9 [place] [id number] [place] [address] 69776- 0993 Dec, [facility] [id number] [place] [address] 40281- 5002 Oct, [place] [id number] [place] [address] 61880- 0225 Oct, Dilated cardiomyopathy I42.0 ; CAD (coronary artery disease ) I25.10 ; Typical atrial flutter I48.3 and Diabetes mellitus type II, controlled E11.9 [place] [address] [address]- 7771 Aug, Diabetes mellitus E11.9 and History of atrial flutter Z86.79 [place] [id number] [place] [address] 41133- 5739 May, [place] [id number] [place] [address] 64454- 0985 May, Hyperkalemia 276.7 and Atrial flutter 427.32 [place] [address] [address]- 1529 May, [facility] [id number] [place] [address] 85292- 9279 May, [facility] [id number] [place] [address] 07317- 8969 May, [facility] [id number] [place] [address] 07959- 3068 Apr, [facility] [id number] [place] [address] 82824- 1179 Apr, A-fib 427.31 ; Chronic ischemic heart disease, 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 ; Ischemic cardiomyopathy 414.8 ; Chronic combined systolic and diastolic heart failure 428.42 and Diabetes with hyperosmolarity, type II or unspecified type, uncontrolled 250.22 [facility] [id number] [place] [address] 15814- 8458 Apr, [facility] [id number] [place] [address] 83790- 7909 Apr, [facility] [id number] [place] [address] 78752- 5027 Apr, [facility] [id number] [place] [address] 44882- 0053 Mar, CAD (coronary artery disease) 414.00 ; Diabetes mellitus, type 2 250.00 and HTN (hypertension), benign 401.1 [facility] [id number] [place] [address] 49212- 2547 Mar, Diabetes mellitus, type II 250.00 and CAD (coronary artery disease) 414.00 [facility] [id number] [place] [address] 64274- 4402 Mar, [facility] [id number] [place] [address] 93608- 1279 Mar, [facility] [address] [place] [address] 57666- 6664 Jan, [facility] [address] [id number] [place] [address]- 0348 December, [facility] [place] [facility] [address] [id number] [place] [address]- 1953 December, [facility] [place] [facility] [address] [id number] [place] [address]- 4651 Dec, [facility] [place] [facility] [address] [id number] [place] [address]- 7456 Dec, [facility] [place] [facility] [address] [id number] [place] [address]- 0411 Oct, [facility] [place] [facility] [address] [id number] [place] [address]- 4439 Oct, [facility] [place] [facility] [address] [id number] [place] [address]- 3946 Sep, [facility] [place] [facility] [address] [id number] [place] [address]- 8938 Sep, [facility] [place] [facility] [address] [id number] [place] [address]- 1953 Sep, [facility] [place] [facility] [address] [id number] [place] [address]- 6971 Sep, [facility] [place] [facility] [address] [id number] [place] [address]- 6225 Aug, [facility] [place] [facility] [address] [id number] [address]- 3402 Aug, [facility] [place] [facility] [address] [id number] [place] [address]- 3079 Mar, [facility] [place] [facility] [address] [id number] [place] [address]- 1842 Mar, [facility] [place] [facility] [address] [id number] [place] [address]- 3763 Mar, [facility] [place] [facility] [address] [id number] [place] [address]- 0585 Mar, [facility] [address] [id number] [place] [address]- 1014 Mar, [facility] [place] [facility] [address] [id number] [place] [address]- 8342 Mar, [facility] [place] [facility] [address] [id number] [place] [address]- 9069 Mar, [facility] [place] [facility] [address] [id number] [place] [address]- 9932 Dec, [facility] [place] [facility] [address] [id number] [place] [address]- 8049 Dec, [facility] [place] [facility] [address] [id number] [place] [address]- 9512 Dec, [facility] [place] [facility] [address] [id number] [place] [address]- 0552 Dec, [facility] [place] [facility] [address] [id number] [place] [address]- 1459 Oct, [facility] [place] [facility] [address] [id number] [place] [address]- 9804 Oct, [facility] [place] [facility] [address] [id number] [place] [address]- 8881 May, [facility] [place] [facility] [address] [id number] [place] [address]- 8982 Apr, [facility] [place] [facility] [address] [id number] [place] [address]- 4731 Apr, [facility] [place] [facility] [address] [id number] [place] [address]- 4710 December, [facility] [place] [facility] [address] [id number] [place] [address]- 4076 Dec, [facility] [place] [facility] [address] [id number] [place] [address]- 2613 Sep, [facility] [place] [facility] [address] [id number] [place] [address]- 2428 Sep, [facility] [place] [facility] [address] [id number] [place] [address]- 2274 Sep, [facility] [place] [facility] [address] [id number] [place] [address]- 0736 Jul, [facility] [place] [facility] [address] [id number] [place] [address]- 9436 05 May, 2012 [facility] [place] [facility] [address] [id number] [place] [address] 2540 05 May, 2012 [facility] [place] [facility] [address] [id number] [place] [address]- 4798 May, [facility] [place] [facility] [address] [id number] [place] [address]- 6774 Apr, [facility] [place] [facility] [address] [id number] [place] [address]- 4530 15 Apr, 2012 [facility] [place] [facility] [address] [id number] [place] [address]- 0726 14 Apr, 2012 [facility] [place] [facility] [address] [id number] [place] [address]- 9726 Mar, [facility] [place] [facility] [address] [id number] [place] [address]- 4038 Mar, [facility] [place] [facility] [address] [id number] [place] [address]- 5553 Dec, [facility] [place] [facility] [address] [id number] [place] [address]- 9132 Oct, [facility] [place] [facility] [address] [id number] [place] [address]- 6310 Oct, [facility] [place] [facility] [address] [id number] [place] [address]- 8787 Oct, [facility] [place] [facility] [address] [id number] [place] [address]- 2375 Oct, [facility] [address] [facility] [id number] [address]- 1286 Oct, [facility] [id number] [address]- 9026 Aug, [facility] [id number] [address]- 4026 Sep, [facility] [address] [address] 8451 May, [facility] [id number] [address]- 9380 Jul, [facility] [address], [place] [address]- 4532 Jul, [facility] [address], [place] [address]- 5327 10 May, 2009 IMMUNIZATIONS No Known Immunizations SOCIAL HISTORY Never Assessed REASON FOR VISIT PALS/Entresto Eliquis PLAN OF CARE VITAL SIGNS MEDICATIONS Medication Instructions Dosage Frequency Start Date End Date Duration Status Entresto 24-26 MG Orally Twice a day 1 tablet 12h 90 days Active Eliquis 2.5 MG Orally 2 times a day 1 tablet 12h 24 Apr, 2015 90 days Active RESULTS No Results PROCEDURES No Known procedures INSTRUCTIONS MEDICATIONS ADMINISTERED No Known Medications MEDICAL [...] influenza A, Sepsis, Pneumonia, Elevated liver enzymes -[facility] 10/21/16 Hospitalization History fatigue, observation 11/17
--- OUTSIDE RECORDS SUMMARY | 2018-10-14 15:12 | XMS REPORT ---
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 Active [id number] Problem Hyperbilirubinemia E80.6 Active 78852569 Problem Non-ischemic cardiomyopathy I42.9 Apr, Active 41169602 Problem S/P CABG (coronary artery bypass graft) Z95.1 Active 080790035 Problem Risk for falls Z91.81 Active 211585392 Problem Chronic kidney disease, unspecified CKD stage N18.9 Active 505169451 Problem Increased ammonia level R79.89 Active 826975012 Problem Chronic atrial fibrillation I48.2 Active 383626668 Problem Essential hypertension I10 Active 98456373 Problem Atypical atrial flutter I48.4 Apr, Active 6292882 Problem Coronary artery disease involving [place] coronary artery of [place] heart without angina pectoris I25.10 Active 7903157876836 Problem Hyperammonemia E72.20 Active 1390034 Problem Dilated cardiomyopathy I42.0 Active 787005315 Problem Typical atrial flutter I48.3 Active 263872818 Problem Nonsustained ventricular tachycardia I47.2 Active 257088756 Problem Hypokalemia E87.6 Active 43602944 Problem Acute on chronic systolic (congestive) heart failure I50.23 Active 137393803 Problem Hx of renal calculi Z87.442 Active 693309724 Problem Chronic gout, unspecified cause, unspecified site M1A.9XX0 Active 92032662 Problem Persistent atrial fibrillation I48.1 Active 063567651 ALLERGIES No Information ENCOUNTERS Encounter Location Date Diagnosis [place] [id number] [place] [address] 21389- 6058 Apr, [place] [id number] [place] [address] 03727- 7203 December, [place] [id number] [place] [address] 81584- 1504 December, [place] [id number] [place] [address] 67656- 1414 Dec, Hyperammonemia E72.20 [place] [id number] [place] [address] 48399- 3311 Oct, Increased ammonia level R79.89 ; Pleural effusion, left J90 ; Dilated cardiomyopathy I42.0 ; Weakness R53.1 ; Gait disturbance R26.9 and Diabetes mellitus E11.9 [place] [id number] [place] [address] 37435- 2845 Oct, [place] [id number] [place] [address] 42924- 8337 Oct, [place] [id number] [place] [address] 54962- 0278 Oct, [place] [id number] [place] [address] 50348- 1939 Oct, Weakness R53.1 and Gait disturbance R26.9 [place] [id number] [place] [address] 64490- 1147 Oct, Weakness R53.1 ; 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 ; Type 2 diabetes mellitus without complication E11.9 ; Chronic kidney disease, unspecified CKD stage N18.9 ; Chronic atrial fibrillation I48.2 and Hypokalemia E87.6 [place] [id number] [place] [address] 76796- 3287 19 Oct, 2017 Dilated cardiomyopathy I42.0 ; 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 ; Type 2 diabetes mellitus without complication E11.9 and Chronic atrial fibrillation I48.2 [place] [address] 79091- 4831 09 Oct, 2017 [place] [address] 29450- 2221 Oct, Hypokalemia E87.6 ; Other specified hypotension I95.89 ; Type 2 diabetes mellitus without complication E11.9 and Weakness R53.1 [place] [address] 76307- 6646 Sep, Hypokalemia E87.6 [place] [address] 96103- 0983 Sep, Chronic kidney disease, unspecified CKD stage N18.9 [place] [address] 54643- 4462 Sep, Type 2 diabetes mellitus without complication E11.9 ; Cough R05 and Chronic kidney disease, unspecified CKD stage N18.9 [place] [address] 54355- 4688 Aug, Hypokalemia E87.6 and Acute bronchitis, unspecified organism J20.9 [place] [address] 21217- 1395 Aug, Gait disturbance R26.9 ; Risk for falls Z91.81 ; Acute bronchitis, unspecified organism J20.9 and Hypokalemia E87.6 [place] [address] 51310- 4517 Aug, Hypokalemia E87.6 [place] [address] 08359- 2539 Jul, [place] [address] 15865- 4385 Jul, Encounter for immunization Z23 [place] [id number] [place] [address] 05044- 5019 Jun, Encounter for immunization Z23 [place] [id number] [place] [address] 08170- 3556 Apr, Type 2 diabetes mellitus without complication E11.9 [place] [address] 44155- 7765 Mar, [place] [address] 59727- 4918 Jan, [place] [address] 41165- 8224 Oct, 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 ; Weakness R53.1 and Gait disturbance R26.9 [place] [address] 23242- 0817 Oct, [place] [address] [id number] Oct, 2016 [place] [address] 28980- 0858 13 Oct, 2016 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 ; 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 and Typical atrial flutter I48.3 [place] [id number] [place] [address] 84962- 8140 03 Oct, 2016 Hx of atrioventricular node ablation Z98.890 ; 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 and Type 2 diabetes mellitus with hypoglycemia without coma, without long-term current use of insulin E11.649 [place] [id number] [place] [address] 40087- 5007 Sep, Chronic gout, unspecified cause, unspecified site M1A.9XX0 [place] [id number] [place] [address] 91872- 6208 Sep, Type 2 diabetes mellitus without complication E11.9 [facility] [place] [address] [place] [address] 26379- 8135 Sep, Persistent atrial fibrillation I48.1 ; 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 and Non-ischemic cardiomyopathy I42.9 [place] [address] [place] [address] 99786- 4685 Sep, Persistent atrial fibrillation I48.1 ; 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 and Non-ischemic cardiomyopathy I42.9 [place] [address] [place] [address] 30147- 1483 Aug, 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 [place] [address] [place] [address] 59053- 5018 Jul, Type 2 diabetes mellitus without complication E11.9 [place] [address] [place] [address] 17866- 9564 Jul, Coronary artery disease involving [place] coronary artery of [place] heart without angina pectoris I25.10 ; Typical atrial flutter I48.3 ; 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 ; Acute on chronic systolic (congestive) heart failure I50.23 ; Dilated cardiomyopathy I42.0 and Status post internal cardiac defibrillator procedure Z95.810 [place] [address] [place] [address] 72262- 9507 May, Coronary artery disease involving [place] coronary artery of [place] heart without angina pectoris I25.10 ; Dilated cardiomyopathy I42.0 and Typical atrial flutter I48.3 [place] [address] [place] [address] 06114- 2290 Apr, [place] [address] [place] [address] 07179- 3144 Apr, Coronary artery disease involving [place] coronary artery of [place] heart without angina pectoris I25.10 ; Type 2 diabetes mellitus without complication E11.9 and 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 [facility] [place] [address] [address]- 7456 Apr, [facility] [place] [address] [place] [address]- 1474 Apr, [facility] [place] [address] [place] [address]- 9757 Apr, Dilated cardiomyopathy I42.0 ; Coronary artery disease involving [place] coronary artery of [place] heart without angina pectoris I25.10 ; Typical atrial flutter I48.3 and Automatic implantable cardioverter- defibrillator in situ Z95.810 [facility] [place] [id number] [place] [address] 18407- 3123 Mar, Chronic gout, unspecified cause, unspecified site M1A.9XX0 [facility] [place] [id number] [address]- 6973 Mar, [facility] [place] [address] [place] [address]- 6998 Jan, [facility] [place] [address] [place] [address] 95975- 4479 Jan, Left arm swelling M79.89 ; Diabetes mellitus E11.9 and CAD ( coronary artery disease) I25.10 [facility] [place] [address] [place] [address]- 0476 Jan, Essential hypertension I10 ; 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 ; Type 2 diabetes mellitus without complication E11.9 and Coronary artery disease involving [place] coronary artery of [place] heart without angina pectoris I25.10 [facility] [place] [address], [place] [address]- 5620 Jan, [facility] [place] [address] [address]- 8858 Jan, [facility] [place] [address] [address]- 3305 Jan, [place] [address] [place] [address]- 3535 December, [facility] [place] [id number] [place] [address] 40364- 9135 December, [facility] [place] [id number] [place] [address] 22780- 6560 December, Type 2 diabetes mellitus with complication, without long- term current use of insulin E11.8 ; Hyperlipidemia, unspecified hyperlipidemia type E78.5 and Neuropathy G62.9 [place] [id number] [place] [address] 15712- 9784 Dec, [place] [id number] [place] [address] 04540- 6358 Oct, [place] [id number] [place] [address] 29992- 4544 Oct, Dilated cardiomyopathy I42.0 ; CAD (coronary artery disease ) I25.10 ; Typical atrial flutter I48.3 and Diabetes mellitus type II, controlled E11.9 [place] [id number] [place] [address] 66290- 9183 Aug, Diabetes mellitus E11.9 and History of atrial flutter Z86.79 [place] [id number] [place] [address] 22940- 1636 May, [place] [id number] [place] [address] 12410- 3027 May, Hyperkalemia 276.7 and Atrial flutter 427.32 [place] [id number] [place] [address] 07827- 5692 May, [place] [id number] [place] [address] 98920- 9189 May, [place] [id number] [place] [address] 75899- 4587 May, [place] [id number] [address]- 1022 Apr, [facility] [place] [id number] [place] [address] 64719- 9784 Apr, A-fib 427.31 ; Chronic ischemic heart disease, 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 ; Ischemic cardiomyopathy 414.8 ; Chronic combined systolic and diastolic heart failure 428.42 and Diabetes with hyperosmolarity, type II or unspecified type, uncontrolled 250.22 [facility] [place] [id number] [place] [address] 74485- 6848 Apr, [facility] [place] [id number] [place] [address] 78675- 1459 Apr, [facility] [place] [id number] [place] [address] 29498- 6711 Apr, [facility] [place] [id number] [place] [address] 64510- 2029 Mar, CAD (coronary artery disease) 414.00 ; Diabetes mellitus, type 2 250.00 and HTN (hypertension), benign 401.1 [facility] [place] [id number] [place] [address] 10463- 8332 Mar, Diabetes mellitus, type II 250.00 and CAD (coronary artery disease) 414.00 [facility] [place] [address] [place] [address] 05205- 5932 Mar, [facility] [place] [id number] [place] [address] 62978- 7070 Mar, [facility] [place] [address] [address]- 2449 Jan, [facility] [place] [id number] [place] [address] 92129- 4353 December, [facility] [place] [id number] [address]- 7000 December, [facility] [place] [id number] [place] [address] 98648- 1025 Dec, [facility] [place] [facility] [address] [id number] [place] [address]- 0965 Dec, [facility] [place] [facility] [address] [id number] [place] [address]- 6690 Oct, [facility] [place] [facility] [address] [id number] [place] [address]- 6201 Oct, [facility] [place] [facility] [address] [id number] [place] [address]- 5840 Sep, [facility] [place] [facility] [address] [id number] [place] [address]- 7708 Sep, [facility] [place] [facility] [address] [id number] [place] [address]- 0279 Sep, [facility] [place] [facility] [address] [id number] [place] [address]- 2598 Sep, [facility] [place] [facility] [address] [id number] [place] [address]- 9122 Aug, [facility] [place] [facility] [address] [id number] [place] [address]- 8039 Aug, [facility] [place] [facility] [address] [id number] [place] [address]- 8909 Mar, [facility] [place] [facility] [address] [id number] [place] [address]- 6388 Mar, [facility] [place] [facility] [address] [id number], [place] [address]- 3547 Mar, [facility] [place] [facility] [address] [id number] [place] [address]- 2455 Mar, [facility] [place] [facility] [address] [id number] [place] [address]- 9660 Mar, [facility] [place] [facility] [address] [id number], [place] [address]- 8384 Mar, [facility] [place] [facility] [address] [id number], [place] [address]- 4227 Mar, [facility] [address] [id number] [place] [address]- 6304 Dec, [facility] [place] [facility] [address] [id number] [place] [address]- 5887 Dec, [facility] [place] [facility] [address] [id number] [place] [address]- 7806 Dec, [facility] [place] [facility] [address] [id number] [place] [address]- 1310 Dec, [facility] [place] [facility] [address] [id number] [place] [address]- 7407 Oct, [facility] [place] [facility] [address] [id number] [place] [address]- 5179 Oct, [facility] [address] [id number] [place] [address]- 8788 May, [facility] [place] [facility] [address] [id number] [place] [address]- 4161 Apr, [facility] [address] [id number] [place] [address]- 0577 Apr, [facility] [place] [facility] [address] [id number] [place] [address]- 6444 December, [facility] [place] [facility] [address] [id number] [place] [address]- 8922 Dec, [facility] [place] [facility] [address] [id number] [place] [address]- 3249 Sep, [facility] [place] [facility] [address] [id number] [place] [address]- 8096 Sep, [facility] [place] [facility] [address] [id number] [place] [address]- 5489 Sep, [facility] [place] [facility] [address] [id number] [place] [address]- 7207 Jul, [facility] [place] [facility] [address] [id number] [place] [address]- 3615 05 May, 2012 [facility] [place] [facility] [address] [id number] [place] [address]- 6770 05 May, 2012 [facility] [place] [facility] [address] [id number] [place] [address]- 8956 04 May, 2012 [facility] [place] [facility] [address] [id number] [place] [address]- 2416 27 Apr, 2012 [facility] [place] [facility] [address] [id number] [place] [address]- 8110 15 Apr, 2012 [facility] [place] [facility] [address] [id number] [place] [address]- 9447 14 Apr, 2012 [facility] [place] [facility] [address] [id number] [place] [address]- 5730 Mar, [facility] [place] [facility] [address] [id number] [place] [address]- 8068 Mar, [facility] [place] [facility] [address] [id number] [place] [address]- 6284 Dec, [facility] [place] [facility] [address] [id number] [place] [address]- 1584 Oct, [facility] [place] [facility] [address] [id number] [place] [address]- 5446 Oct, [facility] [place] [facility] [address] [id number] [place] [address]- 9110 Oct, [facility] [place] [facility] [address] [id number] [place] [address]- 5597 Oct, [facility] [place] [facility] [address] [id number] [place] [address]- 7395 Oct, [facility] [place] [facility] [address] [id number] [place] [address]- 2991 Aug, [facility] [place] [facility] [address] [id number] [place] [address]- 2616 17 Sep, 2010 [facility] [place] [address] [facility] [id number] [place] [address]- 4125 13 May, 2010 [facility] [place] [address] [facility] [id number] [place] [address]- 1718 17 Jul, 2009 [facility] [place] [address] [facility] [id number] [place] [address]- 1186 16 Jul, 2009 [facility] [place] [address] [facility] [id number], [place] [address]- 0150 10 May, 2009 IMMUNIZATIONS No Known Immunizations SOCIAL HISTORY Never Assessed REASON FOR VISIT lab PLAN OF CARE VITAL SIGNS MEDICATIONS Unknown Medications RESULTS No Results PROCEDURES No Known [...] influenza A, Sepsis, Pneumonia, Elevated liver enzymes -VC 10/21/16 Hospitalization History fatigue, observation 11/17
--- OUTSIDE RECORDS SUMMARY | 2018-10-14 15:12 | XMS REPORT ---
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 Sep, Active 319090585 Problem Type 2 diabetes mellitus without complication E11.9 Active 909411812 Problem Coronary artery disease involving [place] coronary artery of [place] heart without angina pectoris I25.10 Active 6920880502900 Problem Hyperbilirubinemia E80.6 Active 82927961 Problem 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 Active [id number] Problem Non-ischemic cardiomyopathy I42.9 Apr, Active 15600230 Problem Risk for falls Z91.81 Active 448712719 Problem Chronic kidney disease, unspecified CKD stage N18.9 Active 284422363 Problem Increased ammonia level R79.89 Active 789469196 Problem Chronic atrial fibrillation I48.2 Active 920011416 Problem Hyperammonemia E72.20 Active 3397847 Problem Essential hypertension I10 Active 17607208 Problem Atypical atrial flutter I48.4 Apr, Active 2283129 Problem Hypokalemia E87.6 Active 28790526 Problem Dilated cardiomyopathy I42.0 Active 087557167 Problem Typical atrial flutter I48.3 Active 370300732 Problem Hx of renal calculi Z87.442 Active 179040877 Problem Nonsustained ventricular tachycardia I47.2 Active 077747073 Problem Acute on chronic systolic (congestive) heart failure I50.23 Active 793312263 Problem S/P CABG (coronary artery bypass graft) Z95.1 Active 915213560 Problem Chronic gout, unspecified cause, unspecified site M1A.9XX0 Active 04715022 Problem Persistent atrial fibrillation I48.1 Active 333691021 ALLERGIES No Known Allergies ENCOUNTERS Encounter Location Date Diagnosis [facility] [id number] [place] [address] 22498- 3703 Apr, Chronic atrial fibrillation I48.2 and Coronary artery disease involving [place] coronary artery of [place] heart without angina pectoris I25.10 [facility] [facility] [id number] [place] [address] 58783- 4642 Apr, Type 2 diabetes mellitus without complication E11.9 ; Hypokalemia E87.6 ; Chronic atrial fibrillation I48.2 and Dilated cardiomyopathy I42.0 [facility] [facility] [address] 82358- 1078 December, [facility] [facility] [address] 69766- 7313 December, [facility] [facility] [id number] [place] [address] 94856- 4974 Dec, Hyperammonemia E72.20 [facility] [facility] [address] 85307- 8678 Oct, Increased ammonia level R79.89 ; Pleural effusion, left J90 ; Dilated cardiomyopathy I42.0 ; Weakness R53.1 ; Gait disturbance R26.9 and Diabetes mellitus E11.9 [facility] [facility] [id number] [place] [address] 42838- 6641 Oct, [facility] [id number] [place] [address] 14325- 3267 Oct, [facility] [facility] [id number] [place] [address] 14998- 1016 Oct, [facility] [id number] [place] [address] 16899- 3268 Oct, Weakness R53.1 and Gait disturbance R26.9 [facility] [facility] [id number] [place] [address] 94829- 1069 Oct, Weakness R53.1 ; 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 ; Type 2 diabetes mellitus without complication E11.9 ; Chronic kidney disease, unspecified CKD stage N18.9 ; Chronic atrial fibrillation I48.2 and Hypokalemia E87.6 [facility] [id number] [place] [address] 72313- 3724 Oct, Dilated cardiomyopathy I42.0 ; 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 ; Type 2 diabetes mellitus without complication E11.9 and Chronic atrial fibrillation I48.2 [facility] [id number] [place] [address] 22463- 7767 Oct, [place] [id number] [place] [address] 03672- 3383 Oct, Hypokalemia E87.6 ; Other specified hypotension I95.89 ; Type 2 diabetes mellitus without complication E11.9 and Weakness R53.1 [facility] [id number] [place] [address] 76638- 8165 Sep, Hypokalemia E87.6 [facility] [id number] [place] [address] 69669- 5663 Sep, Chronic kidney disease, unspecified CKD stage N18.9 [facility] [id number] [place] [address] 80498- 6098 Sep, Type 2 diabetes mellitus without complication E11.9 ; Cough R05 and Chronic kidney disease, unspecified CKD stage N18.9 [place] [id number] [place] [address] 97658- 9509 Aug, Hypokalemia E87.6 and Acute bronchitis, unspecified organism J20.9 [facility] [id number] [place] [address] 98631- 8158 Aug, Gait disturbance R26.9 ; Risk for falls Z91.81 ; Acute bronchitis, unspecified organism J20.9 and Hypokalemia E87.6 [facility] [id number] [place] [address] 64982- 1630 08 Aug, 2017 Hypokalemia E87.6 [facility] [id number] [place] [address] 43033- 6536 Jul, [facility] [id number] [place] [address] 76718- 0997 Jul, Encounter for immunization Z23 [facility] [address] 63650- 5938 Jun, Encounter for immunization Z23 [facility] [address] 07453- 3502 Apr, Type 2 diabetes mellitus without complication E11.9 [place] [address] 92236- 0783 Mar, [facility] [address] 75406- 1344 Jan, [facility] [id number] [place] [address] 28286- 0702 Oct, 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 and Type 2 diabetes mellitus with hypoglycemia without coma, without long-term current use of insulin E11.649 [place] [id number] [place] [address] 00749- 5207 Sep, Chronic gout, unspecified cause, unspecified site M1A.9XX0 [place] [id number] [place] [address] 26046- 0193 Sep, Type 2 diabetes mellitus without complication E11.9 [place] [id number] [place] [address] 01367- 3169 Sep, Persistent atrial fibrillation I48.1 ; 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 and Non-ischemic cardiomyopathy I42.9 [place] [address] [place] [address] 99156- 6512 Sep, Persistent atrial fibrillation I48.1 ; 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 and Non-ischemic cardiomyopathy I42.9 [facility] [id number] [place] [address] 42133- 2688 Aug, 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 [facility] [id number] [place] [address] 80395- 1485 Jul, Type 2 diabetes mellitus without complication E11.9 [facility] [id number] [place] [address] 82885- 6345 Jul, Coronary artery disease involving [place] coronary artery of [place] heart without angina pectoris I25.10 ; Typical atrial flutter I48.3 ; 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 ; Acute on chronic systolic (congestive) heart failure I50.23 ; Dilated cardiomyopathy I42.0 and Status post internal cardiac defibrillator procedure Z95.810 [place] [id number] [place] [address] 45254- 1649 May, Coronary artery disease involving [place] coronary artery of [place] heart without angina pectoris I25.10 ; Dilated cardiomyopathy I42.0 and Typical atrial flutter I48.3 [facility] [address] [address]- 7147 Apr, [place] [id number] [place] [address] 70784- 8444 Apr, Coronary artery disease involving [place] coronary artery of [place] heart without angina pectoris I25.10 ; Type 2 diabetes mellitus without complication E11.9 and 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 [facility] [id number] [place] [address] 36675- 5759 Apr, [facility] [id number] [place] [address] 56687- 3609 Apr, [facility] [id number] [place] [address] 55473- 5194 Apr, Dilated cardiomyopathy I42.0 ; Coronary artery disease involving [place] coronary artery of [place] heart without angina pectoris I25.10 ; Typical atrial flutter I48.3 and Automatic implantable cardioverter- defibrillator in situ Z95.810 [place] [address] [address]- 7610 Mar, Chronic gout, unspecified cause, unspecified site M1A.9XX0 [facility] [address] [address]- 0324 Mar, [place] [address] [address]- 6831 Jan, [facility] [id number] [place] [address] 07270- 4145 Jan, Left arm swelling M79.89 ; Diabetes mellitus E11.9 and CAD ( coronary artery disease) I25.10 [place] [address] [address]- 6550 Jan, Essential hypertension I10 ; 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 ; Type 2 diabetes mellitus without complication E11.9 and Coronary artery disease involving [place] coronary artery of [place] heart without angina pectoris I25.10 [place] [address] [address]- 6541 13 Feb, 2016 [facility] [id number] [place] [address] 93984- 9448 Jan, [facility] [id number] [place] [address] 39452- 1402 Jan, [place] [id number] [place] [address] 89523- 3891 December, [facility] [id number] [place] [address] 21345- 6215 December, [place] [id number] [place] [address] 08213- 3233 December, Type 2 diabetes mellitus with complication, without long- term current use of insulin E11.8 ; Hyperlipidemia, unspecified hyperlipidemia type E78.5 and Neuropathy G62.9 [facility] [id number] [place] [address] 88051- 2262 Dec, [facility] [id number] [place] [address] 07468- 4049 Oct, [facility] [id number] [place] [address] 09046- 3387 Oct, Dilated cardiomyopathy I42.0 ; CAD (coronary artery disease ) I25.10 ; Typical atrial flutter I48.3 and Diabetes mellitus type II, controlled E11.9 [facility] [id number] [place] [address] 47893- 9879 Aug, Diabetes mellitus E11.9 and History of atrial flutter Z86.79 [facility] [id number] [place] [address] 95901- 4699 May, [place] [id number] [place] [address] 04054- 3666 May, Hyperkalemia 276.7 and Atrial flutter 427.32 [place] [id number] [address]- 3194 May, [facility] [id number] [place] [address] 56086- 4205 May, [facility] [id number] [place] [address] 54333- 3798 May, [facility] [id number] [place] [address] 87296- 6522 Apr, [facility] [id number] [place] [address] 83549- 1035 Apr, A-fib 427.31 ; Chronic ischemic heart disease, 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 ; Ischemic cardiomyopathy 414.8 ; Chronic combined systolic and diastolic heart failure 428.42 and Diabetes with hyperosmolarity, type II or unspecified type, uncontrolled 250.22 [facility] [id number] [place] [address] 11106- 5644 Apr, [facility] [id number] [place] [address] 02757- 8727 Apr, [facility] [id number] [place] [address] 80805- 2474 Apr, [facility] [id number] [place] [address] 82786- 5752 Mar, CAD (coronary artery disease) 414.00 ; Diabetes mellitus, type 2 250.00 and HTN (hypertension), benign 401.1 [facility] [id number] [place] [address] 35349- 3204 Mar, Diabetes mellitus, type II 250.00 and CAD (coronary artery disease) 414.00 [facility] [id number] [place] [address] 83157- 2206 Mar, [facility] [id number] [place] [address] 35827- 6844 Mar, [facility] [id number] [place] [address] 05788- 8918 Jan, [facility] [place] [facility] [address] [id number] [place] [address]- 3672 December, [facility] [place] [facility] [address] [id number] [place] [address]- 1362 December, [facility] [place] [facility] [address] [id number] [place] [address]- 0967 Dec, [facility] [place] [facility] [address] [id number] [place] [address]- 7536 Dec, [facility] [place] [facility] [address] [id number] [place] [address]- 7159 Oct, [facility] [place] [facility] [address] [id number] [place] [address]- 1460 Oct, [facility] [place] [facility] [address] [id number] [place] [address]- 9389 Sep, [facility] [place] [facility] [address] [id number] [place] [address]- 3312 Sep, [facility] [place] [facility] [address] [id number] [place] [address]- 2619 Sep, [facility] [place] [facility] [address] [id number] [place] [address]- 6700 Sep, [facility] [place] [facility] [address] [id number] [place] [address]- 8686 Aug, [facility] [place] [facility] [address] [id number], [place] [address]- 4419 Aug, [facility] [place] [facility] [address] [id number] [place] [address]- 1209 Mar, [facility] [place] [facility] [address] [id number] [place] [address]- 8376 Mar, [facility] [place] [facility] [address] [id number] [place] [address]- 4709 Mar, [facility] [place] [facility] [address] [id number], [place] [address]- 1334 Mar, [facility] [address] [id number] [place] [address]- 5985 Mar, [facility] [place] [facility] [address] [id number] [place] [address]- 7880 Mar, [facility] [place] [facility] [address] [id number] [place] [address]- 1948 Mar, [facility] [place] [facility] [address] [id number] [place] [address]- 4552 Dec, [facility] [place] [facility] [address] [id number] [place] [address]- 0475 Dec, [facility] [place] [facility] [address] [id number] [place] [address]- 4562 Dec, [facility] [place] [facility] [address] [id number] [place] [address]- 8114 Dec, [facility] [place] [facility] [address] [id number] [place] [address]- 8397 Oct, [facility] [place] [facility] [address] [id number] [place] [address]- 4069 Oct, [facility] [place] [facility] [address] [facility] [id number] [place] [address]- 6411 May, [facility] [place] [facility] [address] [id number] [place] [address]- 9507 Apr, [facility] [place] [facility] [address] [id number] [place] [address]- 5128 Apr, [facility] [place] [facility] [address] [id number] [place] [address]- 8666 December, [facility] [place] [facility] [address] [id number] [place] [address]- 1122 Dec, [facility] [place] [facility] [address] [id number] [place] [address]- 2179 Sep, [facility] [place] [facility] [address] [id number] [place] [address]- 3454 Sep, [facility] [place] [facility] [address] [id number] [place] [address]- 4808 Sep, [facility] [place] [facility] [address] [id number] [place] [address]- 2183 Jul, [facility] [place] [facility] [address] [id number] [place] [address]- 7248 May, [facility] [place] [facility] [address] [id number] [place] [address]- 3135 May, [facility] [place] [facility] [address] [id number] [place] [address]- 8776 May, [facility] [place] [facility] [address] [id number] [place] [address]- 2660 Apr, [facility] [place] [facility] [address] [id number] [place] [address]- 6058 Apr, [facility] [place] [facility] [address] [id number] [place] [address]- 1635 Apr, [facility] [place] [facility] [address] [id number] [place] [address]- 4558 Mar, [facility] [place] [facility] [address] [id number] [place] [address]- 4959 Mar, [facility] [place] [facility] [address] [id number] [place] [address]- 1797 Dec, [facility] [place] [facility] [address] [id number] [place] [address]- 8654 Oct, [facility] [place] [facility] [address] [id number] [place] [address]- 7802 Oct, [facility] [place] [facility] [address] [id number] [place] [address]- 9695 Oct, [facility] [place] [facility] [address] [id number] [place] [address]- 2533 08 Nov, 2011 [facility] [address] [facility] [id number], [place] [address]- 1226 Oct, [facility] [id number] [address]- 5366 Aug, [facility] [address] [place] [address] 2546 Sep, [facility] [address], [place] [address]- 2676 May, [facility] [address], [place] [address]- 5106 Jul, [facility] [address], [place] [address]- 7346 Jul, [facility] [id number] [address]- 5721 May, IMMUNIZATIONS No Known Immunizations SOCIAL HISTORY Never Assessed REASON FOR VISIT Hospital f/u, [facility], Medications verified via Discharge Summary 10/2017.LBean PLAN OF CARE Activity Details Follow Up 3 Months Reason:DM VITAL SIGNS Height 74 in 2017-11-27 Weight 180 lbs 2017-11-27 Temperature 97.6 degrees Fahrenheit 2017-11-27 Heart Rate 70 bpm 2017-11-27 Respiratory Rate 20 2017-11-27 BMI 23.11 kg/m2 2017-11-27 Blood pressure systolic 122 mmHg 2017-11-27 Blood pressure diastolic 72 mmHg 2017-11-27 MEDICATIONS Medication Instructions Dosage Frequency Start Date End Date Duration Status Aspir-81 81 MG Orally Once a day 1 tablet 24h Active Cane - as directed Aug, Active Allopurinol 100 mg Orally Once a day 1 tablet 24h 90 Active Lactulose 20 GM/30ML Orally Once a day 15 ml 24h Active Lancets Ultra Thin Lancets test blood sugar 12h Sep, 30 days Active Metolazone 5 MG Orally Once a day 1 tablet 24h Active Carvedilol 3.125 MG Orally 2 times a day 1 tablet 12h Active Garlic 1000 MG Orally Once a day 1 capsule 24h Active Blood Glucose Meter 1 glucometer test blood sugar 12h Sep, lifetime Active Blood Glucose Test Strip Test Strips test blood sugar 12h Sep, 30 days Active Furosemide 80 MG Orally Once a day 1 tablet in the morning 24h Active Eliquis 2.5 MG Orally 2 times a day 1 tablet 12h 24 Apr, 2015 Active Zinc Oxide 28 Externally 3 times a day 1 application to affected area 8h 16 Oct, 2017 Active GlyBURIDE 5 MG Orally Once a day 0.5 tablet 24h Mar, Active Cod Liver Oil Unknown Klor-Con 10 10 MEQ Orally Once a day 1 tablet 24h Active Entresto 24-26 MG Orally Twice a day 1 tablet 12h 24 Oct, 2017 Active RESULTS No Results PROCEDURES Procedure Date Ordered Result Body Site [facility] VISIT ESTABLISHED PATIENT November 27, 2017 INSTRUCTIONS MEDICATIONS ADMINISTERED No Known Medications MEDICAL [...] influenza A, Sepsis, Pneumonia, Elevated liver enzymes -[facility] 10/21/16 Hospitalization History fatigue, observation 11/17
--- OUTSIDE RECORDS SUMMARY | 2018-10-14 15:13 | XMS REPORT ---
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 Active 727248137888812 Problem Hyperbilirubinemia E80.6 Active 40616286 Problem Non-ischemic cardiomyopathy I42.9 Apr, Active 84557757 Problem S/P CABG (coronary artery bypass graft) Z95.1 Active 045475455 Problem Risk for falls Z91.81 Active 318665067 Problem Chronic kidney disease, unspecified CKD stage N18.9 Active 470447502 Problem Increased ammonia level R79.89 Active 529822684 Problem Chronic atrial fibrillation I48.2 Active 704927957 Problem Essential hypertension I10 Active 30265818 Problem Atypical atrial flutter I48.4 Apr, Active 8137591 Problem Coronary artery 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.10 Active [id number] Problem Hyperammonemia E72.20 Active 2395144 Problem Dilated cardiomyopathy I42.0 Active 833829595 Problem Typical atrial flutter I48.3 Active 872031908 Problem Nonsustained ventricular tachycardia I47.2 Active 125202684 Problem Hypokalemia E87.6 Active 82772394 Problem Acute on chronic systolic (congestive) heart failure I50.23 Active 051850156 Problem Hx of renal calculi Z87.442 Active 834045491 Problem Chronic gout, unspecified cause, unspecified site M1A.9XX0 Active 65334209 Problem Persistent atrial fibrillation I48.1 Active 861135578 ALLERGIES No Information ENCOUNTERS Encounter Location Date Diagnosis [place] [id number] [place] [address] 55989- 4091 Apr, [place] [id number] [place] [address] 28644- 5655 December, [place] [id number] [place] [address] 31250- 4151 December, [facility] [id number] [place] [address] 29759- 6306 Dec, Hyperammonemia E72.20 [place] [id number] [place] [address] 72211- 2771 Oct, Increased ammonia level R79.89 ; Pleural effusion, left J90 ; Dilated cardiomyopathy I42.0 ; Weakness R53.1 ; Gait disturbance R26.9 and Diabetes mellitus E11.9 [place] [id number] [place] [address] 37505- 7193 Oct, [place] [id number] [place] [address] 65450- 3011 Oct, [place] [id number] [place] [address] 74144- 2506 Oct, [place] [id number] [place] [address] 75282- 5304 Oct, Weakness R53.1 and Gait disturbance R26.9 [place] [id number] [place] [address] 50708- 4629 Oct, Weakness R53.1 ; 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 ; Type 2 diabetes mellitus without complication E11.9 ; Chronic kidney disease, unspecified CKD stage N18.9 ; Chronic atrial fibrillation I48.2 and Hypokalemia E87.6 [place] [id number] [place] [address] 96587- 3897 19 Oct, 2017 Dilated cardiomyopathy I42.0 ; 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 ; Type 2 diabetes mellitus without complication E11.9 and Chronic atrial fibrillation I48.2 [place] [address] 29054- 1402 09 Oct, 2017 [place] [address] 02612- 4117 Oct, Hypokalemia E87.6 ; Other specified hypotension I95.89 ; Type 2 diabetes mellitus without complication E11.9 and Weakness R53.1 [place] [address] 26924- 7565 Sep, Hypokalemia E87.6 [place] [address] 44415- 7613 Sep, Chronic kidney disease, unspecified CKD stage N18.9 [place] [address] 98765- 8587 Sep, Type 2 diabetes mellitus without complication E11.9 ; Cough R05 and Chronic kidney disease, unspecified CKD stage N18.9 [place] [address] 32974- 6302 Aug, Hypokalemia E87.6 and Acute bronchitis, unspecified organism J20.9 [place] [address] 70625- 7911 Aug, Gait disturbance R26.9 ; Risk for falls Z91.81 ; Acute bronchitis, unspecified organism J20.9 and Hypokalemia E87.6 [place] [address] 71515- 7160 Aug, Hypokalemia E87.6 [place] [address] 02126- 0215 Jul, [place] [address] 59820- 7028 Jul, Encounter for immunization Z23 [place] [id number] [place] [address] 59749- 9566 Jun, Encounter for immunization Z23 [place] [id number] [place] [address] 45418- 2770 Apr, Type 2 diabetes mellitus without complication E11.9 [place] [address] 58933- 1263 Mar, [place] [address] 97958- 8198 Jan, [place] [address] 00007- 8671 Oct, 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 ; Weakness R53.1 and Gait disturbance R26.9 [place] [address] 56533- 8212 Oct, [place] [address] [id number] Oct, 2016 [place] [address] 15362- 1490 13 Oct, 2016 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 ; 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 and Typical atrial flutter I48.3 [place] [id number] [place] [address] 55682- 0623 03 Oct, 2016 Hx of atrioventricular node ablation Z98.890 ; 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 and Type 2 diabetes mellitus with hypoglycemia without coma, without long-term current use of insulin E11.649 [place] [id number] [place] [address] 80103- 8589 Sep, Chronic gout, unspecified cause, unspecified site M1A.9XX0 [place] [id number] [place] [address] 81503- 1912 Sep, Type 2 diabetes mellitus without complication E11.9 [facility] [address] [place] [address] 74295- 8280 Sep, Persistent atrial fibrillation I48.1 ; 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 and Non-ischemic cardiomyopathy I42.9 [place] [address] [place] [address] 84366- 2087 Sep, Persistent atrial fibrillation I48.1 ; 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 and Non-ischemic cardiomyopathy I42.9 [place] [address] [place] [address] 82665- 3235 Aug, 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 [place] [address] [place] [address] 37424- 7093 Jul, Type 2 diabetes mellitus without complication E11.9 [place] [address] [place] [address] 02441- 4972 Jul, Coronary artery 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.10 ; Typical atrial flutter I48.3 ; 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 ; Acute on chronic systolic (congestive) heart failure I50.23 ; Dilated cardiomyopathy I42.0 and Status post internal cardiac defibrillator procedure Z95.810 [place] [address] [place] [address] 02150- 5175 May, Coronary artery 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.10 ; Dilated cardiomyopathy I42.0 and Typical atrial flutter I48.3 [place] [address] [place] [address] 80132- 1465 Apr, [place] [address] [place] [address] 64913- 2654 Apr, Coronary artery 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.10 ; Type 2 diabetes mellitus without complication E11.9 and 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 [facility] [address] [address]- 1004 Apr, [facility] [address] [address]- 0380 Apr, [facility] [address] [address]- 3543 Apr, Dilated cardiomyopathy I42.0 ; Coronary artery 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.10 ; Typical atrial flutter I48.3 and Automatic implantable cardioverter- defibrillator in situ Z95.810 [facility] [id number] [place] [address] 81617- 8533 Mar, Chronic gout, unspecified cause, unspecified site M1A.9XX0 [facility] [id number] [address]- 0238 Mar, [facility] [address] [address]- 4758 Jan, [facility] [address] [place] [address] 30391- 1237 Jan, Left arm swelling M79.89 ; Diabetes mellitus E11.9 and CAD ( coronary artery disease) I25.10 [facility] [address] [address]- 0984 Jan, Essential hypertension I10 ; 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 ; Type 2 diabetes mellitus without complication E11.9 and Coronary artery 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.10 [facility] [address] [address]- 2802 Jan, [facility] [address] [address]- 6948 Jan, [facility] [address] [address]- 0926 Jan, [place] [address] [address]- 8367 December, [facility] [id number] [place] [address] 69516- 1763 December, [facility] [id number] [place] [address] 26460- 8646 December, Type 2 diabetes mellitus with complication, without long- term current use of insulin E11.8 ; Hyperlipidemia, unspecified hyperlipidemia type E78.5 and Neuropathy G62.9 [place] [id number] [place] [address] 73832- 4474 Dec, [place] [id number] [place] [address] 97576- 7711 Oct, [place] [id number] [place] [address] 36408- 3958 Oct, Dilated cardiomyopathy I42.0 ; CAD (coronary artery disease ) I25.10 ; Typical atrial flutter I48.3 and Diabetes mellitus type II, controlled E11.9 [place] [id number] [place] [address] 69336- 8222 Aug, Diabetes mellitus E11.9 and History of atrial flutter Z86.79 [place] [id number] [place] [address] 08731- 4486 May, [place] [id number] [place] [address] 53795- 2366 May, Hyperkalemia 276.7 and Atrial flutter 427.32 [place] [id number] [place] [address] 22635- 1838 May, [place] [id number] [place] [address] 95025- 2480 May, [place] [id number] [place] [address] 94043- 6569 May, [place] [id number] [address]- 6982 Apr, [facility] [id number] [place] [address] 52657- 5191 Apr, A-fib 427.31 ; Chronic ischemic heart disease, 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 ; Ischemic cardiomyopathy 414.8 ; Chronic combined systolic and diastolic heart failure 428.42 and Diabetes with hyperosmolarity, type II or unspecified type, uncontrolled 250.22 [facility] [id number] [place] [address] 11258- 6415 Apr, [facility] [id number] [place] [address] 77203- 5741 Apr, [facility] [id number] [place] [address] 23792- 5362 Apr, [facility] [id number] [place] [address] 12198- 4579 Mar, CAD (coronary artery disease) 414.00 ; Diabetes mellitus, type 2 250.00 and HTN (hypertension), benign 401.1 [facility] [id number] [place] [address] 73616- 8497 Mar, Diabetes mellitus, type II 250.00 and CAD (coronary artery disease) 414.00 [facility] [address] [place] [address] 32456- 5988 Mar, [facility] [id number] [place] [address] 01653- 9988 Mar, [facility] [address] [address]- 6431 Jan, [facility] [id number] [place] [address] 87748- 7688 December, [facility] [id number] [address]- 4511 December, [facility] [id number] [place] [address] 01623- 0256 Dec, [facility] [place] [facility] [address] [id number] [place] [address]- 9132 Dec, [facility] [place] [facility] [address] [id number] [place] [address]- 3506 Oct, [facility] [place] [facility] [address] [id number] [place] [address]- 7317 Oct, [facility] [place] [facility] [address] [id number] [place] [address]- 8167 Sep, [facility] [place] [facility] [address] [id number] [place] [address]- 1720 Sep, [facility] [place] [facility] [address] [id number] [place] [address]- 6350 Sep, [facility] [place] [facility] [address] [id number] [place] [address]- 9506 Sep, [facility] [place] [facility] [address] [id number] [place] [address]- 0140 Aug, [facility] [place] [facility] [address] [id number] [place] [address]- 7969 Aug, [facility] [place] [facility] [address] [id number] [place] [address]- 6688 Mar, [facility] [place] [facility] [address] [id number] [place] [address]- 4856 Mar, [facility] [place] [facility] [address] [id number] [place] [address]- 8419 Mar, [facility] [place] [facility] [address] [id number] [place] [address]- 9638 Mar, [facility] [place] [facility] [address] [id number] [place] [address]- 2939 Mar, [facility] [place] [facility] [address] [id number] [place] [address]- 5833 Mar, [facility] [place] [facility] [address] [id number] [place] [address]- 7597 Mar, [facility] [address] [id number] [place] [address]- 8329 Dec, [facility] [place] [facility] [address] [id number] [place] [address]- 7165 Dec, [facility] [place] [facility] [address] [id number] [place] [address]- 5507 Dec, [facility] [place] [facility] [address] [id number] [place] [address]- 2474 Dec, [facility] [place] [facility] [address] [id number] [place] [address]- 7990 Oct, [facility] [place] [facility] [address] [id number] [place] [address]- 9549 Oct, [facility] [address] [id number] [place] [address]- 8270 May, [facility] [place] [facility] [address] [id number] [place] [address]- 6902 Apr, [facility] [address] [id number] [place] [address]- 3496 Apr, [facility] [place] [facility] [address] [id number] [place] [address]- 4008 December, [facility] [place] [facility] [address] [id number] [place] [address]- 1661 Dec, [facility] [place] [facility] [address] [id number] [place] [address]- 1674 Sep, [facility] [place] [facility] [address] [id number] [place] [address]- 8353 Sep, [facility] [place] [facility] [address] [id number] [place] [address]- 5809 Sep, [facility] [place] [facility] [address] [id number] [place] [address]- 1623 Jul, [facility] [place] [facility] [address] [id number] [place] [address]- 4651 05 May, 2012 [facility] [place] [facility] [address] [id number] [place] [address]- 9525 05 May, 2012 [facility] [place] [facility] [address] [id number] [place] [address]- 6846 04 May, 2012 [facility] [place] [facility] [address] [id number] [place] [address]- 1972 27 Apr, 2012 [facility] [place] [facility] [address] [id number] [place] [address]- 6520 15 Apr, 2012 [facility] [place] [facility] [address] [id number] [place] [address]- 1679 14 Apr, 2012 [facility] [place] [facility] [address] [id number] [place] [address]- 7279 Mar, [facility] [place] [facility] [address] [id number] [place] [address]- 3999 Mar, [facility] [place] [facility] [address] [id number] [place] [address]- 7131 Dec, [facility] [place] [facility] [address] [id number] [place] [address]- 2685 Oct, [facility] [place] [facility] [address] [id number] [place] [address]- 9030 Oct, [facility] [place] [facility] [address] [id number] [place] [address]- 3417 Oct, [facility] [place] [facility] [address] [id number] [place] [address]- 1974 Oct, [facility] [place] [facility] [address] [id number] [place] [address]- 3106 Oct, [facility] [place] [facility] [address] [id number] [place] [address]- 1061 Aug, [facility] [place] [facility] [address] [id number] [place] [address]- 3038 17 Sep, 2010 [facility] [address] [facility] [id number] [place] [address]- 3209 13 May, 2010 [facility] [address] [facility] [id number] [place] [address]- 4816 17 Jul, 2009 [facility] [address] [facility] [id number] [place] [address]- 4898 16 Jul, 2009 [facility] [address] [facility] [id number] [place] [address]- 9810 10 May, 2009 IMMUNIZATIONS No Known Immunizations SOCIAL HISTORY Never Assessed REASON FOR VISIT Medication Side Effects PLAN OF CARE VITAL SIGNS MEDICATIONS Unknown Medications RESULTS Name Result Date Reference Range AMMONIA 2017-12-31 Request Problem Ammonia, Plasma AMMONIA (P) PROCEDURES Procedure Date Ordered Result Body Site LAB NOT BILLED BY [facility] December 12, 2017 INSTRUCTIONS MEDICATIONS ADMINISTERED No Known Medications [...] influenza A, Sepsis, Pneumonia, Elevated liver enzymes -[facility] 10/21/16 Hospitalization History fatigue, observation 11/17
--- OUTSIDE RECORDS SUMMARY | 2018-10-14 15:13 | XMS REPORT ---
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 Active [id number] Problem Hyperbilirubinemia E80.6 Active 82662911 Problem Non-ischemic cardiomyopathy I42.9 Apr, Active 13516013 Problem S/P CABG (coronary artery bypass graft) Z95.1 Active 756071741 Problem Risk for falls Z91.81 Active 193119800 Problem Chronic kidney disease, unspecified CKD stage N18.9 Active 634501581 Problem Increased ammonia level R79.89 Active 716398230 Problem Chronic atrial fibrillation I48.2 Active 224618505 Problem Essential hypertension I10 Active 51935632 Problem Atypical atrial flutter I48.4 Apr, Active 3240296 Problem 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 Active 9116035128011 Problem Hyperammonemia E72.20 Active 2483662 Problem Dilated cardiomyopathy I42.0 Active 047353905 Problem Typical atrial flutter I48.3 Active 748011481 Problem Nonsustained ventricular tachycardia I47.2 Active 042008554 Problem Hypokalemia E87.6 Active 54662201 Problem Acute on chronic systolic (congestive) heart failure I50.23 Active 558746135 Problem Hx of renal calculi Z87.442 Active 408968268 Problem Chronic gout, unspecified cause, unspecified site M1A.9XX0 Active 85719271 Problem Persistent atrial fibrillation I48.1 Active 513541524 ALLERGIES No Information ENCOUNTERS Encounter Location Date Diagnosis [place] [id number] [place] [address] 63747- 0915 Apr, [place] [id number] [place] [address] 26231- 0095 December, [place] [id number] [place] [address] 01648- 5146 December, [place] [id number] [place] [address] 03971- 6802 Dec, Hyperammonemia E72.20 [place] [id number] [place] [address] 43545- 8472 Oct, Increased ammonia level R79.89 ; Pleural effusion, left J90 ; Dilated cardiomyopathy I42.0 ; Weakness R53.1 ; Gait disturbance R26.9 and Diabetes mellitus E11.9 [place] [id number] [place] [address] 43701- 3338 Oct, [place] [id number] [place] [address] 03363- 5389 Oct, [place] [id number] [place] [address] 79096- 4989 Oct, [place] [id number] [place] [address] 61678- 9373 Oct, Weakness R53.1 and Gait disturbance R26.9 [place] [id number] [place] [address] 96221- 6806 Oct, Weakness R53.1 ; 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 ; Type 2 diabetes mellitus without complication E11.9 ; Hypokalemia E87.6 ; Chronic atrial fibrillation I48.2 and Chronic kidney disease, unspecified CKD stage N18.9 [place] [id number] [place] [address] 32324- 2401 19 Oct, 2017 Dilated cardiomyopathy I42.0 ; 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 ; Type 2 diabetes mellitus without complication E11.9 and Chronic atrial fibrillation I48.2 [place] [address] 18654- 2294 09 Oct, 2017 [place] [address] 63395- 8782 Oct, Hypokalemia E87.6 ; Other specified hypotension I95.89 ; Type 2 diabetes mellitus without complication E11.9 and Weakness R53.1 [place] [address] 20314- 7392 Sep, Hypokalemia E87.6 [place] [address] 04490- 8175 Sep, Chronic kidney disease, unspecified CKD stage N18.9 [place] [address] 08918- 5183 Sep, Type 2 diabetes mellitus without complication E11.9 ; Cough R05 and Chronic kidney disease, unspecified CKD stage N18.9 [place] [address] 57294- 9985 Aug, Hypokalemia E87.6 and Acute bronchitis, unspecified organism J20.9 [place] [address] 49759- 5833 Aug, Gait disturbance R26.9 ; Risk for falls Z91.81 ; Acute bronchitis, unspecified organism J20.9 and Hypokalemia E87.6 [place] [address] 26225- 7639 Aug, Hypokalemia E87.6 [place] [address] 74746- 7936 Jul, [place] [address] 35118- 1417 Jul, Encounter for immunization Z23 [place] [id number] [place] [address] 43510- 0987 Jun, Encounter for immunization Z23 [place] [id number] [place] [address] 63133- 7045 Apr, Type 2 diabetes mellitus without complication E11.9 [place] [address] 83209- 6260 Mar, [place] [address] 51667- 4045 Jan, [place] [address] 58877- 7972 Oct, 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 ; Weakness R53.1 and Gait disturbance R26.9 [place] [address] 74831- 9199 Oct, [place] [address] [id number] 24 Oct, 2016 [place] [address] 99882- 7918 13 Oct, 2016 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 ; 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 and Typical atrial flutter I48.3 [place] [id number] [place] [address] 73341- 2489 03 Oct, 2016 Presence of combination internal cardiac defibrillator (ICD ) and pacemaker Z95.810 ; Hx of atrioventricular node ablation Z98.890 and Type 2 diabetes mellitus with hypoglycemia without coma, without long-term current use of insulin E11.649 [place] [id number] [place] [address] 05790- 0655 Sep, Chronic gout, unspecified cause, unspecified site M1A.9XX0 [place] [id number] [place] [address] 02743- 4849 Sep, Type 2 diabetes mellitus without complication E11.9 [facility] [address] [place] [address] 20160- 1306 Sep, Persistent atrial fibrillation I48.1 ; 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 and Non-ischemic cardiomyopathy I42.9 [place] [address] [place] [address] 48943- 1582 Sep, Persistent atrial fibrillation I48.1 ; 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 and Non-ischemic cardiomyopathy I42.9 [place] [address] [place] [address] 58568- 5167 Aug, 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 [place] [address] [place] [address] 56363- 1742 Jul, Type 2 diabetes mellitus without complication E11.9 [place] [address] [place] [address] 84069- 6516 Jul, 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 ; Typical atrial flutter I48.3 ; 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 ; Acute on chronic systolic (congestive) heart failure I50.23 ; Dilated cardiomyopathy I42.0 and Status post internal cardiac defibrillator procedure Z95.810 [place] [address] [place] [address] 74053- 8330 May, 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 ; Dilated cardiomyopathy I42.0 and Typical atrial flutter I48.3 [place] [address] [place] [address] 85475- 7610 Apr, [place] [address] [place] [address] 04867- 7476 Apr, 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 ; Type 2 diabetes mellitus without complication E11.9 and 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 [facility] [address] [address]- 3212 Apr, [facility] [address] [address]- 5406 Apr, [facility] [address] [address]- 3238 Apr, Dilated cardiomyopathy I42.0 ; 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 ; Typical atrial flutter I48.3 and Automatic implantable cardioverter- defibrillator in situ Z95.810 [facility] [id number] [place] [address] 51544- 3070 Mar, Chronic gout, unspecified cause, unspecified site M1A.9XX0 [facility] [id number] [address]- 5984 Mar, [facility] [address], [place] [address]- 3346 Jan, [facility] [address] [place] [address] 35842- 5213 Jan, Left arm swelling M79.89 ; Diabetes mellitus E11.9 and CAD ( coronary artery disease) I25.10 [facility] [address] [address]- 1883 Jan, Essential hypertension I10 ; 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 ; Type 2 diabetes mellitus without complication E11.9 and 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 [facility] [address], [place] [address]- 5994 Jan, [facility] [address] [address]- 3090 Jan, [facility] [address], [place] [address]- 7574 Jan, [place] [address] [address]- 3455 December, [facility] [id number] [place] [address] 25628- 0416 December, [facility] [id number] [place] [address] 79995- 0931 December, Type 2 diabetes mellitus with complication, without long- term current use of insulin E11.8 ; Hyperlipidemia, unspecified hyperlipidemia type E78.5 and Neuropathy G62.9 [place] [id number] [place] [address] 28491- 6924 Dec, [place] [id number] [place] [address] 47833- 7049 Oct, [place] [id number] [place] [address] 03599- 3175 Oct, Dilated cardiomyopathy I42.0 ; CAD (coronary artery disease ) I25.10 ; Typical atrial flutter I48.3 and Diabetes mellitus type II, controlled E11.9 [place] [id number] [place] [address] 89117- 3305 Aug, Diabetes mellitus E11.9 and History of atrial flutter Z86.79 [place] [id number] [place] [address] 65296- 2649 May, [place] [id number] [place] [address] 52827- 7052 May, Hyperkalemia 276.7 and Atrial flutter 427.32 [place] [id number] [place] [address] 69171- 1191 May, [place] [id number] [place] [address] 69867- 8042 May, [place] [id number] [place] [address] 53913- 4335 May, [place] [id number] [address]- 3941 Apr, [facility] [id number] [place] [address] 18657- 3541 Apr, A-fib 427.31 ; Chronic ischemic heart disease, 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 ; Ischemic cardiomyopathy 414.8 ; Chronic combined systolic and diastolic heart failure 428.42 and Diabetes with hyperosmolarity, type II or unspecified type, uncontrolled 250.22 [facility] [id number] [place] [address] 24734- 5234 Apr, [facility] [id number] [place] [address] 33767- 6985 Apr, [facility] [id number] [place] [address] 46107- 5101 Apr, [facility] [id number] [place] [address] 72687- 8796 Mar, CAD (coronary artery disease) 414.00 ; Diabetes mellitus, type 2 250.00 and HTN (hypertension), benign 401.1 [facility] [id number] [place] [address] 99231- 8446 Mar, Diabetes mellitus, type II 250.00 and CAD (coronary artery disease) 414.00 [facility] [address] [place] [address] 91141- 9237 Mar, [facility] [id number] [place] [address] 41052- 5413 Mar, [facility] [address] [address]- 0297 Jan, [facility] [id number] [place] [address] 99672- 2482 December, [facility] [id number] [address]- 0163 December, [facility] [id number] [place] [address] 69601- 5939 Dec, [facility] [place] [facility] [address] [id number] [place] [address]- 9069 Dec, [facility] [place] [facility] [address] [id number] [place] [address]- 2167 Oct, [facility] [place] [facility] [address] [id number] [place] [address]- 0591 Oct, [facility] [place] [facility] [address] [id number] [place] [address]- 6393 Sep, [facility] [place] [facility] [address] [id number] [place] [address]- 2704 Sep, [facility] [place] [facility] [address] [id number] [place] [address]- 6527 Sep, [facility] [place] [facility] [address] [id number] [place] [address]- 1477 Sep, [facility] [place] [facility] [address] [id number] [place] [address]- 6594 Aug, [facility] [place] [facility] [address] [id number] [place] [address]- 4892 Aug, [facility] [place] [facility] [address] [id number] [place] [address]- 1099 Mar, [facility] [place] [facility] [address] [id number] [place] [address]- 9792 Mar, [facility] [place] [facility] [address] [id number], [place] [address]- 8376 Mar, [facility] [place] [facility] [address] [id number] [place] [address]- 7293 Mar, [facility] [place] [facility] [address] [id number] [place] [address]- 0056 Mar, [facility] [place] [facility] [address] [id number], [place] [address]- 5441 Mar, [facility] [place] [facility] [address] [id number], [place] [address]- 4214 Mar, [facility] [address] [id number] [place] [address]- 0733 Dec, [facility] [place] [facility] [address] [id number] [place] [address]- 7873 Dec, [facility] [place] [facility] [address] [id number] [place] [address]- 6631 Dec, [facility] [place] [facility] [address] [id number] [place] [address]- 1354 Dec, [facility] [place] [facility] [address] [id number] [place] [address]- 6472 Oct, [facility] [place] [facility] [address] [id number] [place] [address]- 7124 Oct, [facility] [address] [id number] [place] [address]- 4316 May, [facility] [place] [facility] [address] [id number] [place] [address]- 3837 Apr, [facility] [address] [id number] [place] [address]- 8671 Apr, [facility] [place] [facility] [address] [id number] [place] [address]- 0476 December, [facility] [place] [facility] [address] [id number] [place] [address]- 9504 Dec, [facility] [place] [facility] [address] [id number] [place] [address]- 2902 Sep, [facility] [place] [facility] [address] [id number] [place] [address]- 3178 Sep, [facility] [place] [facility] [address] [id number] [place] [address]- 8287 Sep, [facility] [place] [facility] [address] [id number] [place] [address]- 9887 Jul, [facility] [place] [facility] [address] [id number] [place] [address]- 1617 05 May, 2012 [facility] [place] [facility] [address] [id number] [place] [address]- 3244 05 May, 2012 [facility] [place] [facility] [address] [id number] [place] [address]- 8246 04 May, 2012 [facility] [place] [facility] [address] [id number] [place] [address]- 6774 27 Apr, 2012 [facility] [place] [facility] [address] [id number] [place] [address]- 7263 15 Apr, 2012 [facility] [place] [facility] [address] [id number] [place] [address]- 0055 14 Apr, 2012 [facility] [place] [facility] [address] [id number] [place] [address]- 6365 Mar, [facility] [place] [facility] [address] [id number] [place] [address]- 9866 Mar, [facility] [place] [facility] [address] [id number] [place] [address]- 7788 Dec, [facility] [place] [facility] [address] [id number] [place] [address]- 4170 Oct, [facility] [place] [facility] [address] [id number] [place] [address]- 7606 Oct, [facility] [place] [facility] [address] [id number] [place] [address]- 3172 Oct, [facility] [place] [facility] [address] [id number] [place] [address]- 4976 Oct, [facility] [place] [facility] [address] [id number] [place] [address]- 8841 Oct, [facility] [place] [facility] [address] [id number] [place] [address]- 0319 Aug, [facility] [place] [facility] [address] [id number] [place] [address]- 5735 17 Sep, 2010 [facility] [address] [facility] [id number] [place] [address]- 9084 13 May, 2010 [facility] [id number] [address]- 3813 17 Jul, 2009 [facility] [address] [facility] [id number] [place] [address]- 1533 16 Jul, 2009 [facility] [address] [facility] [id number], [place] [address]- 3129 10 May, 2009 IMMUNIZATIONS No Known Immunizations SOCIAL HISTORY Never Assessed REASON FOR VISIT Referral Request PLAN OF CARE VITAL SIGNS MEDICATIONS Unknown [...]
--- OUTSIDE RECORDS SUMMARY | 2018-10-14 15:13 | XMS REPORT ---
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 Active 192628622434660 Problem Hyperbilirubinemia E80.6 Active 40441697 Problem Non-ischemic cardiomyopathy I42.9 Apr, Active 70199149 Problem S/P CABG (coronary artery bypass graft) Z95.1 Active 551341597 Problem Risk for falls Z91.81 Active 449596195 Problem Chronic kidney disease, unspecified CKD stage N18.9 Active 311185656 Problem Increased ammonia level R79.89 Active 229332134 Problem Chronic atrial fibrillation I48.2 Active 569012796 Problem Essential hypertension I10 Active 12406052 Problem Atypical atrial flutter I48.4 Apr, Active 6868367 Problem Coronary artery 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.10 Active 3653014542248 Problem Hyperammonemia E72.20 Active 7394456 Problem Dilated cardiomyopathy I42.0 Active 634904551 Problem Typical atrial flutter I48.3 Active 280658576 Problem Nonsustained ventricular tachycardia I47.2 Active 393898471 Problem Hypokalemia E87.6 Active 16972391 Problem Acute on chronic systolic (congestive) heart failure I50.23 Active 639491237 Problem Hx of renal calculi Z87.442 Active 930068164 Problem Chronic gout, unspecified cause, unspecified site M1A.9XX0 Active 29931652 Problem Persistent atrial fibrillation I48.1 Active 643697045 ALLERGIES No Information ENCOUNTERS Encounter Location Date Diagnosis [facility] [id number] [place] [address] 16371- 2442 Apr, [facility] [id number] [place] [address] 54120- 9140 December, [facility] [id number] [place] [address] 83635- 1500 December, [facility] [id number] [place] [address] 50475- 7102 Dec, Hyperammonemia E72.20 [facility] [id number] [place] [address] 52399- 7890 Oct, Increased ammonia level R79.89 ; Pleural effusion, left J90 ; Dilated cardiomyopathy I42.0 ; Weakness R53.1 ; Gait disturbance R26.9 and Diabetes mellitus E11.9 [facility] [id number] [place] [address] 05602- 2997 Oct, [facility] [id number] [place] [address] 74959- 2267 Oct, [facility] [id number] [place] [address] 22648- 9681 Oct, [facility] [id number] [place] [address] 54566- 7304 Oct, Weakness R53.1 and Gait disturbance R26.9 [facility] [id number] [place] [address] 56821- 5332 Oct, Weakness R53.1 ; 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 ; Type 2 diabetes mellitus without complication E11.9 ; Chronic kidney disease, unspecified CKD stage N18.9 ; Chronic atrial fibrillation I48.2 and Hypokalemia E87.6 [facility] [id number] [place] [address] 23469- 5036 19 Oct, 2017 Dilated cardiomyopathy I42.0 ; 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 ; Type 2 diabetes mellitus without complication E11.9 and Chronic atrial fibrillation I48.2 [facility] [address] 04825- 8590 09 Oct, 2017 [facility] [address] 80173- 5996 Oct, Hypokalemia E87.6 ; Other specified hypotension I95.89 ; Type 2 diabetes mellitus without complication E11.9 and Weakness R53.1 [facility] [address] 68053- 1164 Sep, Hypokalemia E87.6 [facility] [address] 50117- 0949 Sep, Chronic kidney disease, unspecified CKD stage N18.9 [facility] [address] 62419- 9231 Sep, Type 2 diabetes mellitus without complication E11.9 ; Cough R05 and Chronic kidney disease, unspecified CKD stage N18.9 [facility] [address] 05263- 0129 Aug, Hypokalemia E87.6 and Acute bronchitis, unspecified organism J20.9 [facility] [address] 85683- 5532 Aug, Gait disturbance R26.9 ; Risk for falls Z91.81 ; Acute bronchitis, unspecified organism J20.9 and Hypokalemia E87.6 [facility] [address] 15633- 1839 Aug, Hypokalemia E87.6 [facility] [address] 29022- 3871 Jul, [facility] [address] 42650- 8751 Jul, Encounter for immunization Z23 [facility] [id number] [place] [address] 12837- 1403 Jun, Encounter for immunization Z23 [facility] [id number] [place] [address] 95224- 1852 Apr, Type 2 diabetes mellitus without complication E11.9 [facility] [address] 40569- 8407 Mar, [facility] [address] 63547- 6500 Jan, [facility] [address] 16036- 5907 Oct, 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 ; Weakness R53.1 and Gait disturbance R26.9 [facility] [address] 83408- 3888 Oct, [place] [facility] [address] [id number] Oct, 2016 [facility] [address] 84842- 2604 13 Oct, 2016 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 ; 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 and Typical atrial flutter I48.3 [facility] [id number] [place] [address] 69496- 2326 03 Oct, 2016 Hx of atrioventricular node ablation Z98.890 ; 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 and Type 2 diabetes mellitus with hypoglycemia without coma, without long-term current use of insulin E11.649 [facility] [id number] [place] [address] 32774- 0275 Sep, Chronic gout, unspecified cause, unspecified site M1A.9XX0 [facility] [id number] [place] [address] 32190- 0240 Sep, Type 2 diabetes mellitus without complication E11.9 [facility] [address] [place] [address] 07799- 5164 Sep, Persistent atrial fibrillation I48.1 ; 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 and Non-ischemic cardiomyopathy I42.9 [facility] [address] [place] [address] 25741- 8418 Sep, Persistent atrial fibrillation I48.1 ; 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 and Non-ischemic cardiomyopathy I42.9 [facility] [address] [place] [address] 88866- 5092 Aug, 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 [facility] [id number] [place] [address] 18356- 7761 Jul, Type 2 diabetes mellitus without complication E11.9 [facility] [address] [place] [address] 67819- 2268 Jul, Coronary artery 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.10 ; Typical atrial flutter I48.3 ; 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 ; Acute on chronic systolic (congestive) heart failure I50.23 ; Dilated cardiomyopathy I42.0 and Status post internal cardiac defibrillator procedure Z95.810 [facility] [address] [place] [address] 96251- 8664 May, Coronary artery 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.10 ; Dilated cardiomyopathy I42.0 and Typical atrial flutter I48.3 [facility] [id number] [place] [address] 27705- 8053 Apr, [facility] [address] [place] [address] 54860- 9831 Apr, Coronary artery 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.10 ; Type 2 diabetes mellitus without complication E11.9 and 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 [facility] [address] [address]- 2035 Apr, [facility] [address] [place] [address]- 7091 Apr, [facility] [address] [place] [address]- 0689 Apr, Dilated cardiomyopathy I42.0 ; Coronary artery 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.10 ; Typical atrial flutter I48.3 and Automatic implantable cardioverter- defibrillator in situ Z95.810 [facility] [id number] [place] [address] 53203- 8762 Mar, Chronic gout, unspecified cause, unspecified site M1A.9XX0 [facility] [id number] [address]- 3104 Mar, [facility] [address] [place] [address]- 9323 Jan, [facility] [address] [place] [address] 82718- 4495 Jan, Left arm swelling M79.89 ; Diabetes mellitus E11.9 and CAD ( coronary artery disease) I25.10 [facility] [address] [place] [address]- 9072 Jan, Essential hypertension I10 ; 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 ; Type 2 diabetes mellitus without complication E11.9 and Coronary artery 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.10 [facility] [address] [place] [address]- 4072 Jan, [facility] [address] [place] [address]- 2376 Jan, [facility] [address] [place] [address]- 9585 Jan, [place] [address] [place] [address]- 0610 December, [facility] [id number] [place] [address] 73305- 8318 December, [facility] [id number] [place] [address] 77935- 4846 December, Type 2 diabetes mellitus with complication, without long- term current use of insulin E11.8 ; Hyperlipidemia, unspecified hyperlipidemia type E78.5 and Neuropathy G62.9 [facility] [id number] [place] [address] 96906- 5941 Dec, [facility] [id number] [place] [address] 93245- 6043 Oct, [facility] [id number] [place] [address] 51473- 3191 Oct, Dilated cardiomyopathy I42.0 ; CAD (coronary artery disease ) I25.10 ; Typical atrial flutter I48.3 and Diabetes mellitus type II, controlled E11.9 [facility] [id number] [place] [address] 07731- 7158 Aug, Diabetes mellitus E11.9 and History of atrial flutter Z86.79 [facility] [id number] [place] [address] 65619- 1268 May, [facility] [id number] [place] [address] 37140- 2724 May, Hyperkalemia 276.7 and Atrial flutter 427.32 [facility] [id number] [place] [address] 90352- 5864 May, [facility] [id number] [place] [address] 21824- 1816 May, [facility] [id number] [place] [address] 32381- 1005 May, [facility] [id number] [place] [address]- 2854 Apr, [facility] [id number] [place] [address] 85960- 7960 Apr, A-fib 427.31 ; Chronic ischemic heart disease, 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 ; Ischemic cardiomyopathy 414.8 ; Chronic combined systolic and diastolic heart failure 428.42 and Diabetes with hyperosmolarity, type II or unspecified type, uncontrolled 250.22 [facility] [id number] [place] [address] 72174- 9209 Apr, [facility] [id number] [place] [address] 88485- 7781 Apr, [facility] [id number] [place] [address] 23133- 2528 Apr, [facility] [id number] [place] [address] 14365- 2164 Mar, CAD (coronary artery disease) 414.00 ; Diabetes mellitus, type 2 250.00 and HTN (hypertension), benign 401.1 [facility] [id number] [place] [address] 79175- 4253 Mar, Diabetes mellitus, type II 250.00 and CAD (coronary artery disease) 414.00 [facility] [address] [place] [address] 31722- 8230 Mar, [facility] [id number] [place] [address] 61728- 4081 Mar, [facility] [address], [place] [address]- 4392 Jan, [facility] [id number] [place] [address] 52170- 2872 December, [facility] [id number] [address]- 7641 December, [facility] [id number] [place] [address] 16322- 4240 Dec, [facility] [place] [facility] [address] [id number] [place] [address]- 5116 Dec, [facility] [place] [facility] [address] [id number] [place] [address]- 0960 Oct, [facility] [place] [facility] [address] [id number] [place] [address]- 7161 Oct, [facility] [place] [facility] [address] [id number] [place] [address]- 3981 Sep, [facility] [place] [facility] [address] [id number] [place] [address]- 1263 Sep, [facility] [place] [facility] [address] [id number] [place] [address]- 2430 Sep, [facility] [place] [facility] [address] [id number] [place] [address]- 5854 Sep, [facility] [place] [facility] [address] [id number] [place] [address]- 7353 Aug, [facility] [place] [facility] [address] [id number] [place] [address]- 1841 Aug, [facility] [place] [facility] [address] [id number] [place] [address]- 8633 Mar, [facility] [place] [facility] [address] [id number] [place] [address]- 2975 Mar, [facility] [place] [facility] [address] [id number], [place] [address]- 9522 Mar, [facility] [place] [facility] [address] [id number] [place] [address]- 0881 Mar, [facility] [place] [facility] [address] [id number] [place] [address]- 1491 Mar, [facility] [place] [facility] [address] [id number], [place] [address]- 0168 Mar, [facility] [place] [facility] [address] [id number], [place] [address]- 8775 Mar, [facility] [address] [id number] [place] [address]- 9222 Dec, [facility] [place] [facility] [address] [id number] [place] [address]- 8883 Dec, [facility] [place] [facility] [address] [id number] [place] [address]- 2095 Dec, [facility] [place] [facility] [address] [id number] [place] [address]- 7762 Dec, [facility] [place] [facility] [address] [id number] [place] [address]- 8551 Oct, [facility] [place] [facility] [address] [id number] [place] [address]- 4795 Oct, [facility] [address] [id number] [place] [address]- 3378 May, [facility] [place] [facility] [address] [id number] [place] [address]- 3093 Apr, [facility] [address] [id number] [place] [address]- 8531 Apr, [facility] [place] [facility] [address] [id number] [place] [address]- 7415 December, [facility] [place] [facility] [address] [id number] [place] [address]- 4420 Dec, [facility] [place] [facility] [address] [id number] [place] [address]- 5232 Sep, [facility] [place] [facility] [address] [id number] [place] [address]- 4543 Sep, [facility] [place] [facility] [address] [id number] [place] [address]- 8621 Sep, [facility] [place] [facility] [address] [id number] [place] [address]- 4312 Jul, [facility] [place] [facility] [address] [id number] [place] [address]- 1196 05 May, 2012 [facility] [place] [facility] [address] [id number] [place] [address]- 1373 05 May, 2012 [facility] [place] [facility] [address] [id number] [place] [address]- 4026 04 May, 2012 [facility] [place] [facility] [address] [id number] [place] [address]- 0689 27 Apr, 2012 [facility] [place] [facility] [address] [id number] [place] [address]- 3890 15 Apr, 2012 [facility] [place] [facility] [address] [id number] [place] [address]- 0312 14 Apr, 2012 [facility] [place] [facility] [address] [id number] [place] [address]- 6100 Mar, [facility] [place] [facility] [address] [id number] [place] [address]- 1154 Mar, [facility] [place] [facility] [address] [id number] [place] [address]- 3589 Dec, [facility] [place] [facility] [address] [id number] [place] [address]- 9897 Oct, [facility] [place] [facility] [address] [id number] [place] [address]- 5361 Oct, [facility] [place] [facility] [address] [id number] [place] [address]- 5368 Oct, [facility] [place] [facility] [address] [id number] [place] [address]- 3827 Oct, [facility] [place] [facility] [address] [id number] [place] [address]- 4964 Oct, [facility] [place] [facility] [address] [id number] [place] [address]- 5451 Aug, [facility] [place] [facility] [address] [id number] [place] [address]- 8681 17 Sep, 2010 [facility] [address] [facility] [id number] [place] [address]- 1052 13 May, 2010 [facility] [address] [facility] [id number] [place] [address]- 2361 17 Jul, 2009 [facility] [address] [facility] [id number] [place] [address]- 4649 16 Jul, 2009 [facility] [address] [facility] [id number], [place] [address]- 6018 10 May, 2009 IMMUNIZATIONS No Known Immunizations SOCIAL HISTORY Never Assessed REASON FOR VISIT Home Health Discharge PLAN OF CARE VITAL SIGNS MEDICATIONS Unknown [...] influenza A, Sepsis, Pneumonia, Elevated liver enzymes -[facility] 10/21/16 Hospitalization History fatigue, observation 11/17
--- OUTSIDE RECORDS SUMMARY | 2018-10-14 15:14 | XMS REPORT ---
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 Active 087812315319953 Problem Hyperbilirubinemia E80.6 Active 40066590 Problem Non-ischemic cardiomyopathy I42.9 Apr, Active 74107953 Problem S/P CABG (coronary artery bypass graft) Z95.1 Active 823974818 Problem Risk for falls Z91.81 Active 490811465 Problem Chronic kidney disease, unspecified CKD stage N18.9 Active 589271391 Problem Increased ammonia level R79.89 Active 085548576 Problem Chronic atrial fibrillation I48.2 Active 404233310 Problem Essential hypertension I10 Active 37146230 Problem Atypical atrial flutter I48.4 Apr, Active 7994715 Problem 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 Active 5866364297076 Problem Hyperammonemia E72.20 Active 4942233 Problem Dilated cardiomyopathy I42.0 Active 919088307 Problem Typical atrial flutter I48.3 Active 613497118 Problem Nonsustained ventricular tachycardia I47.2 Active 746139917 Problem Hypokalemia E87.6 Active 09185455 Problem Acute on chronic systolic (congestive) heart failure I50.23 Active 480584406 Problem Hx of renal calculi Z87.442 Active 107424862 Problem Chronic gout, unspecified cause, unspecified site M1A.9XX0 Active 81616971 Problem Persistent atrial fibrillation I48.1 Active 552504791 ALLERGIES No Information ENCOUNTERS Encounter Location Date Diagnosis [place] [id number] [place] [address] 97045- 0565 Apr, [place] [id number] [place] [address] 36665- 8167 December, [place] [id number] [place] [address] 37311- 2601 December, [place] [id number] [place] [address] 20100- 2636 Dec, Hyperammonemia E72.20 [place] [id number] [place] [address] 75687- 5800 Oct, Increased ammonia level R79.89 ; Pleural effusion, left J90 ; Dilated cardiomyopathy I42.0 ; Weakness R53.1 ; Gait disturbance R26.9 and Diabetes mellitus E11.9 [place] [id number] [place] [address] 13173- 8774 Oct, [place] [id number] [place] [address] 81294- 9681 Oct, [place] [id number] [place] [address] 37013- 8601 Oct, [place] [id number] [place] [address] 76818- 7382 Oct, Weakness R53.1 and Gait disturbance R26.9 [place] [id number] [place] [address] 01408- 0671 Oct, Weakness R53.1 ; 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 ; Type 2 diabetes mellitus without complication E11.9 ; Hypokalemia E87.6 ; Chronic atrial fibrillation I48.2 and Chronic kidney disease, unspecified CKD stage N18.9 [place] [id number] [place] [address] 47284- 9355 19 Oct, 2017 Dilated cardiomyopathy I42.0 ; 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 ; Type 2 diabetes mellitus without complication E11.9 and Chronic atrial fibrillation I48.2 [place] [address] 09169- 4319 09 Oct, 2017 [place] [address] 67648- 4858 Oct, Hypokalemia E87.6 ; Other specified hypotension I95.89 ; Type 2 diabetes mellitus without complication E11.9 and Weakness R53.1 [place] [address] 17500- 1189 Sep, Hypokalemia E87.6 [place] [address] 96514- 6339 Sep, Chronic kidney disease, unspecified CKD stage N18.9 [place] [address] 36464- 3303 Sep, Type 2 diabetes mellitus without complication E11.9 ; Cough R05 and Chronic kidney disease, unspecified CKD stage N18.9 [place] [address] 79274- 2874 Aug, Hypokalemia E87.6 and Acute bronchitis, unspecified organism J20.9 [place] [address] 78621- 9786 Aug, Gait disturbance R26.9 ; Risk for falls Z91.81 ; Acute bronchitis, unspecified organism J20.9 and Hypokalemia E87.6 [place] [address] 30513- 5141 Aug, Hypokalemia E87.6 [place] [address] 33067- 1399 Jul, [place] [address] 82943- 4933 Jul, Encounter for immunization Z23 [place] [id number] [place] [address] 92938- 2812 Jun, Encounter for immunization Z23 [place] [id number] [place] [address] 78716- 0055 Apr, Type 2 diabetes mellitus without complication E11.9 [place] [address] 34468- 9954 Mar, [place] [address] 59448- 0747 Jan, [place] [address] 67699- 9693 Oct, 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 ; Weakness R53.1 and Gait disturbance R26.9 [place] [address] 20361- 2587 Oct, [place] [address] [id number] Oct, 2016 [place] [address] 69175- 0201 13 Oct, 2016 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 ; 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 and Typical atrial flutter I48.3 [place] [id number] [place] [address] 90747- 1291 03 Oct, 2016 Presence of combination internal cardiac defibrillator (ICD ) and pacemaker Z95.810 ; Hx of atrioventricular node ablation Z98.890 and Type 2 diabetes mellitus with hypoglycemia without coma, without long-term current use of insulin E11.649 [place] [id number] [place] [address] 21085- 0512 Sep, Chronic gout, unspecified cause, unspecified site M1A.9XX0 [place] [id number] [place] [address] 16904- 1017 Sep, Type 2 diabetes mellitus without complication E11.9 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 and Non-ischemic cardiomyopathy I42.9 [place] [address] [place] [address] 56108- 5998 Aug, 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 [place] [address] [place] [address] 70366- 8555 Jul, Type 2 diabetes mellitus without complication E11.9 [place] [address] [place] [address] 20789- 2349 Jul, 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 ; Typical atrial flutter I48.3 ; 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 ; Acute on chronic systolic (congestive) heart failure I50.23 ; Dilated cardiomyopathy I42.0 and Status post internal cardiac defibrillator procedure Z95.810 [place] [address] [place] [address] 01417- 0748 May, 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 [address] [address] 8[address] Apr, [facility] [address] [place] [address]- 8322 Apr, 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 [id number] [place] [address] 36002- 9106 Mar, Chronic gout, unspecified cause, unspecified site M1A.9XX0 [facility] [id number] [address] 3310 Mar, [facility] [address] [place] [address]- 2366 Jan, [facility] [address] [place] [address] 87521- 6054 Jan, Left arm swelling M79.89 ; Diabetes mellitus E11.9 and CAD ( coronary artery disease) I25.10 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 [address] [address] 2049 Jan, [facility] [address] [place] [address]- 0608 Jan, [facility] [address] [place] [address]- 2076 Jan, [place] [address] [address]- 2728 December, [facility] [id number] [place] [address] 35700- 3841 December, [facility] [id number] [place] [address] 98130- 4978 December, Type 2 diabetes mellitus with complication, without long- term current use of insulin E11.8 ; Hyperlipidemia, unspecified hyperlipidemia type E78.5 and Neuropathy G62.9 [place] [id number] [place] [address] 68196- 9903 Dec, [place] [id number] [place] [address] 70267- 2817 Oct, [place] [id number] [place] [address] 98400- 7869 Oct, Dilated cardiomyopathy I42.0 ; CAD (coronary artery disease ) I25.10 ; Typical atrial flutter I48.3 and Diabetes mellitus type II, controlled E11.9 [place] [id number] [place] [address] 01550- 5484 Aug, Diabetes mellitus E11.9 and History of atrial flutter Z86.79 [place] [id number] [place] [address] 94145- 0166 May, [place] [id number] [place] [address] 36659- 4761 May, Hyperkalemia 276.7 and Atrial flutter 427.32 [place] [id number] [place] [address] 21226- 6615 May, [place] [id number] [place] [address] 79971- 1414 May, [place] [id number] [place] [address] 63868- 3193 May, [place] [id number] [address]- 9004 Apr, 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 [id number] [place] [address] 59621- 8833 Apr, [facility] [id number] [place] [address] 19257- 6540 Apr, [facility] [id number] [place] [address] 29265- 8183 Apr, [facility] [id number] [place] [address] 38161- 1148 Mar, CAD (coronary artery disease) 414.00 ; Diabetes mellitus, type 2 250.00 and HTN (hypertension), benign 401.1 [facility] [id number] [place] [address] 51740- 3323 Mar, Diabetes mellitus, type II 250.00 and CAD (coronary artery disease) 414.00 [facility] [address] [place] [address] 41536- 7579 Mar, [facility] [id number] [place] [address] 27752- 3440 Mar, [facility] [address] [address] 5864 Jan, [facility] [id number] [place] [address] 94444- 6705 December, [facility] [id number] [address] 4062 December, [facility] [id number] [place] [address] 13363- 2078 Dec, [facility] [place] [facility] [address] [id number] [place] [address]- 9303 Dec, [facility] [place] [facility] [address] [id number] [place] [address]- 1905 Oct, [facility] [place] [facility] [address] [id number] [place] [address]- 8891 Oct, [facility] [place] [facility] [address] [id number] [place] [address]- 2648 Sep, [facility] [place] [facility] [address] [id number] [place] [address]- 2483 Sep, [facility] [place] [facility] [address] [id number] [place] [address]- 7876 Sep, [facility] [place] [facility] [address] [id number] [place] [address]- 1761 Sep, [facility] [place] [facility] [address] [id number] [place] [address]- 0798 Aug, [facility] [place] [facility] [address] [id number] [place] [address]- 0617 Aug, [facility] [place] [facility] [address] [id number] [place] [address]- 3146 Mar, [facility] [place] [facility] [address] [id number] [place] [address]- 4287 Mar, [facility] [place] [facility] [address] [id number], [place] [address]- 3955 Mar, [facility] [place] [facility] [address] [id number] [place] [address]- 0340 Mar, [facility] [place] [facility] [address] [id number] [place] [address]- 8209 Mar, [facility] [place] [facility] [address] [id number], [place] [address]- 6552 Mar, [facility] [place] [facility] [address] [id number], [place] [address]- 8278 Mar, [facility] [address] [id number] [place] [address]- 6255 Dec, [facility] [place] [facility] [address] [id number] [place] [address]- 5486 Dec, [facility] [place] [facility] [address] [id number] [place] [address]- 0061 Dec, [facility] [place] [facility] [address] [id number] [place] [address]- 1523 Dec, [facility] [place] [facility] [address] [id number] [place] [address]- 9139 Oct, [facility] [place] [facility] [address] [id number] [place] [address]- 8216 Oct, [facility] [address] [id number] [place] [address]- 5320 May, [facility] [place] [facility] [address] [id number] [place] [address]- 3051 Apr, [facility] [address] [id number] [place] [address]- 9860 Apr, [facility] [place] [facility] [address] [id number] [place] [address]- 1371 December, [facility] [place] [facility] [address] [id number] [place] [address]- 0572 Dec, [facility] [place] [facility] [address] [id number] [place] [address]- 4617 Sep, [facility] [place] [facility] [address] [id number] [place] [address]- 1344 Sep, [facility] [place] [facility] [address] [id number] [place] [address]- 2325 Sep, [facility] [place] [facility] [address] [id number] [place] [address]- 3826 Jul, [facility] [place] [facility] [address] [id number] [place] [address]- 8551 05 May, 2012 [facility] [place] [facility] [address] [id number] [place] [address]- 8771 05 May, 2012 [facility] [place] [facility] [address] [id number] [place] [address]- 9826 04 May, 2012 [facility] [place] [facility] [address] [id number] [place] [address]- 0572 27 Apr, 2012 [facility] [place] [facility] [address] [id number] [place] [address]- 4675 15 Apr, 2012 [facility] [place] [facility] [address] [id number] [place] [address]- 7273 14 Apr, 2012 [facility] [place] [facility] [address] [id number] [place] [address]- 4788 Mar, [facility] [place] [facility] [address] [id number] [place] [address]- 0230 Mar, [facility] [place] [facility] [address] [id number] [place] [address]- 4517 Dec, [facility] [place] [facility] [address] [id number] [place] [address]- 4449 Oct, [facility] [place] [facility] [address] [id number] [place] [address]- 3010 Oct, [facility] [place] [facility] [address] [id number] [place] [address]- 7446 Oct, [facility] [place] [facility] [address] [id number] [place] [address]- 4342 Oct, [facility] [place] [facility] [address] [id number] [place] [address]- 5964 Oct, [facility] [place] [facility] [address] [id number] [place] [address]- 6318 Aug, [facility] [place] [facility] [address] [id number] [place] [address]- 1589 17 Sep, 2010 [facility] [address] [facility] [id number] [place] [address]- 3493 13 May, 2010 [facility] [address] [facility] [id number], [place] [address]- 6574 17 Jul, 2009 [facility] [address] [facility] [id number], [place] [address]- 8426 [address], [address] [facility] [address] [facility] [id number], [place] [address]- 0939 10 May, 2009 IMMUNIZATIONS No Known Immunizations SOCIAL HISTORY Never Assessed REASON FOR VISIT Medication list update PLAN OF CARE VITAL SIGNS MEDICATIONS Medication Instructions Dosage Frequency Start Date End Date Duration Status Cod Liver Oil Unknown Eliquis 2.5 MG Orally 2 times a day 1 tablet 12h Apr, Active Allopurinol 100 mg Orally Once a day 1 tablet 24h 90 Active Cane - as directed Aug, Active Lactulose 20 GM/30ML Orally Once a day 15 ml 24h Active Lancets Ultra Thin Lancets test blood sugar 12h Sep, 30 days Active Blood Glucose Test Strip Test Strips test blood sugar 12h Sep, 30 days Active Lisinopril 10 MG Orally Once a day 1 tablet 24h Active GlyBURIDE 5 MG Orally Once a day 0.5 tablet 24h Mar, Active Furosemide 80 MG Orally Once a day 1 tablet in the morning 24h Active Metolazone 5 MG Orally Once a day 1 tablet 24h Active Carvedilol 3.125 MG Orally 2 times a day 1 tablet 12h Active Entresto 24-26 MG Orally Twice a day 1 tablet 12h Unknown Blood Glucose Meter 1 glucometer test blood sugar 12h Sep, lifetime Active Aspir-81 81 MG Orally Once a day 1 tablet 24h Active Klor-Con 10 10 MEQ Orally Once a day 1 tablet 24h Active RESULTS No Results PROCEDURES No Known [...] node ablation 09/2016 Hospitalization History Heart Monitoring 2013 Hospitalization History influenza A, Sepsis, Pneumonia, Elevated liver enzymes -[facility] 10/21/16 Hospitalization History fatigue, observation 11/17
--- OUTSIDE RECORDS SUMMARY | 2018-10-14 15:14 | XMS REPORT ---
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 Active [id number] Problem Hyperbilirubinemia E80.6 Active 74919068 Problem Non-ischemic cardiomyopathy I42.9 Apr, Active 46751857 Problem S/P CABG (coronary artery bypass graft) Z95.1 Active 112765485 Problem Risk for falls Z91.81 Active 691599274 Problem Chronic kidney disease, unspecified CKD stage N18.9 Active 889734383 Problem Increased ammonia level R79.89 Active 311173664 Problem Chronic atrial fibrillation I48.2 Active 905163165 Problem Essential hypertension I10 Active 39751709 Problem Atypical atrial flutter I48.4 Apr, Active 1078580 Problem 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 Active [id number] Problem Hyperammonemia E72.20 Active 2749105 Problem Dilated cardiomyopathy I42.0 Active 094933188 Problem Typical atrial flutter I48.3 Active 512818294 Problem Nonsustained ventricular tachycardia I47.2 Active 704614950 Problem Hypokalemia E87.6 Active 11491177 Problem Acute on chronic systolic (congestive) heart failure I50.23 Active 461334812 Problem Hx of renal calculi Z87.442 Active 578176789 Problem Chronic gout, unspecified cause, unspecified site M1A.9XX0 Active 53612892 Problem Persistent atrial fibrillation I48.1 Active 542585888 ALLERGIES No Information ENCOUNTERS Encounter Location Date Diagnosis [facility] [id number] [place] [address] 47798- 2252 Apr, [place] [id number] [place] [address] 42291- 5143 December, [facility] [id number] [place] [address] 69449- 3056 December, [place] [id number] [place] [address] 71913- 1513 Dec, Hyperammonemia E72.20 [place] [id number] [place] [address] 61765- 6289 Oct, Increased ammonia level R79.89 ; Pleural effusion, left J90 ; Dilated cardiomyopathy I42.0 ; Weakness R53.1 ; Gait disturbance R26.9 and Diabetes mellitus E11.9 [place] [id number] [place] [address] 72755- 7575 Oct, [place] [id number] [place] [address] 16229- 7090 Oct, [place] [id number] [place] [address] 82725- 1874 Oct, [place] [id number] [place] [address] 55161- 7845 Oct, Weakness R53.1 and Gait disturbance R26.9 [place] [id number] [place] [address] 44625- 6803 Oct, Weakness R53.1 ; 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6 ; Other specified hypotension I95.89 ; Type 2 diabetes mellitus without complication E11.9 and Weakness R53.1 [place] [address] 53478- 3812 Sep, Hypokalemia E87.6 [place] [address] 59342- 4740 Sep, Chronic kidney disease, unspecified CKD stage N18.9 [place] [address] 68502- 4815 Sep, Type 2 diabetes mellitus without complication E11.9 ; Cough R05 and Chronic kidney disease, unspecified CKD stage N18.9 [place] [address] 88893- 4606 Aug, Hypokalemia E87.6 and Acute bronchitis, unspecified organism J20.9 [place] [address] 51028- 8046 Aug, Gait disturbance R26.9 ; Risk for falls Z91.81 ; Acute bronchitis, unspecified organism J20.9 and Hypokalemia E87.6 [place] [address] 19750- 9869 Aug, Hypokalemia E87.6 [place] [address] 08053- 9678 Jul, [place] [address] 95270- 9025 Jul, Encounter for immunization Z23 [place] [id number] [place] [address] 69705- 7688 Jun, Encounter for immunization Z23 [place] [id number] [place] [address] 58761- 4342 Apr, Type 2 diabetes mellitus without complication E11.9 [place] [address] 70360- 1527 Mar, [place] [address] 74114- 7644 Jan, [place] [address] 88977- 7795 Oct, 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 ; Weakness R53.1 and Gait disturbance R26.9 [place] [address] 22827- 7013 Oct, [place] [address] [id number] Oct, 2016 [place] [address] 43752- 1418 13 Oct, 2016 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 ; 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 and Typical atrial flutter I48.3 [place] [id number] [place] [address] 80714- 8887 03 Oct, 2016 Presence of combination internal cardiac defibrillator (ICD ) and pacemaker Z95.810 ; Hx of atrioventricular node ablation Z98.890 and Type 2 diabetes mellitus with hypoglycemia without coma, without long-term current use of insulin E11.649 [place] [id number] [place] [address] 61887- 5180 Sep, Chronic gout, unspecified cause, unspecified site M1A.9XX0 [place] [id number] [place] [address] 99770- 7102 Sep, Type 2 diabetes mellitus without complication E11.9 [facility] [address] [place] [address] 05486- 6597 Sep, Persistent atrial fibrillation I48.1 ; 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 and Non-ischemic cardiomyopathy I42.9 [place] [address] [place] [address] 16228- 7266 Sep, Persistent atrial fibrillation I48.1 ; 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 and Non-ischemic cardiomyopathy I42.9 [place] [address] [place] [address] 59504- 2799 Aug, 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 [place] [address] [place] [address] 66455- 5200 Jul, Type 2 diabetes mellitus without complication E11.9 [place] [address] [place] [address] 69569- 0594 Jul, 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 ; Typical atrial flutter I48.3 ; 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 ; Acute on chronic systolic (congestive) heart failure I50.23 ; Dilated cardiomyopathy I42.0 and Status post internal cardiac defibrillator procedure Z95.810 [place] [address] [place] [address] 22861- 1469 May, 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 ; Dilated cardiomyopathy I42.0 and Typical atrial flutter I48.3 [place] [address] [place] [address] 29834- 9109 Apr, [place] [address] [place] [address] 89551- 3946 Apr, 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 ; Type 2 diabetes mellitus without complication E11.9 and 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 [facility] [address] [place] [address]- 9416 Apr, [facility] [address] [place] [address]- 8077 Apr, [facility] [address] [place] [address]- 6451 Apr, Dilated cardiomyopathy I42.0 ; 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 ; Typical atrial flutter I48.3 and Automatic implantable cardioverter- defibrillator in situ Z95.810 [facility] [id number] [place] [address] 69850- 0144 Mar, Chronic gout, unspecified cause, unspecified site M1A.9XX0 [facility] [id number] [address]- 8971 Mar, [facility] [address] [place] [address]- 3590 Jan, [facility] [address] [place] [address] 17722- 4127 Jan, Left arm swelling M79.89 ; Diabetes mellitus E11.9 and CAD ( coronary artery disease) I25.10 [facility] [address] [place] [address]- 3210 Jan, Essential hypertension I10 ; 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 ; Type 2 diabetes mellitus without complication E11.9 and 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 [facility] [address] [place] [address]- 1801 Jan, [facility] [address] [place] [address]- 3679 Jan, [facility] [address] [place] [address]- 2569 Jan, [place] [address] [place] [address]- 7886 December, [facility] [id number] [place] [address] 63394- 8396 December, [facility] [id number] [place] [address] 28640- 8723 December, Type 2 diabetes mellitus with complication, without long- term current use of insulin E11.8 ; Hyperlipidemia, unspecified hyperlipidemia type E78.5 and Neuropathy G62.9 [place] [id number] [place] [address] 33047- 9949 Dec, [place] [id number] [place] [address] 73742- 9369 Oct, [place] [id number] [place] [address] 87409- 3704 Oct, Dilated cardiomyopathy I42.0 ; CAD (coronary artery disease ) I25.10 ; Typical atrial flutter I48.3 and Diabetes mellitus type II, controlled E11.9 [place] [id number] [place] [address] 45941- 5469 Aug, Diabetes mellitus E11.9 and History of atrial flutter Z86.79 [place] [id number] [place] [address] 10425- 4735 May, [place] [id number] [place] [address] 33030- 1189 May, Hyperkalemia 276.7 and Atrial flutter 427.32 [place] [id number] [place] [address] 08917- 0456 May, [place] [id number] [place] [address] 50512- 1270 May, [place] [id number] [place] [address] 29609- 5618 May, [place] [id number] [place] [address]- 5912 Apr, [facility] [id number] [place] [address] 89010- 9183 Apr, A-fib 427.31 ; Chronic ischemic heart disease, 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 ; Ischemic cardiomyopathy 414.8 ; Chronic combined systolic and diastolic heart failure 428.42 and Diabetes with hyperosmolarity, type II or unspecified type, uncontrolled 250.22 [facility] [id number] [place] [address] 78031- 7356 Apr, [facility] [id number] [place] [address] 33131- 0662 Apr, [facility] [id number] [place] [address] 04150- 1954 Apr, [facility] [id number] [place] [address] 64407- 2831 Mar, CAD (coronary artery disease) 414.00 ; Diabetes mellitus, type 2 250.00 and HTN (hypertension), benign 401.1 [facility] [id number] [place] [address] 75786- 4896 Mar, Diabetes mellitus, type II 250.00 and CAD (coronary artery disease) 414.00 [facility] [address] [place] [address] 46830- 8182 Mar, [facility] [id number] [place] [address] 07653- 5635 Mar, [facility] [address] [address]- 7546 Jan, [facility] [id number] [place] [address] 12127- 9145 December, [facility] [id number] [place] [address]- 3840 December, [facility] [id number] [place] [address] 83421- 8338 Dec, [facility] [place] [facility] [address] [id number] [place] [address]- 5692 Dec, [facility] [place] [facility] [address] [id number] [place] [address]- 1756 Oct, [facility] [place] [facility] [address] [id number] [place] [address]- 1158 Oct, [facility] [place] [facility] [address] [id number] [place] [address]- 3845 Sep, [facility] [place] [facility] [address] [id number] [place] [address]- 1618 Sep, [facility] [place] [facility] [address] [id number] [place] [address]- 1456 Sep, [facility] [place] [facility] [address] [id number] [place] [address]- 9385 Sep, [facility] [place] [facility] [address] [id number] [place] [address]- 3974 Aug, [facility] [place] [facility] [address] [id number] [place] [address]- 0781 Aug, [facility] [place] [facility] [address] [id number] [place] [address]- 5261 Mar, [facility] [place] [facility] [address] [id number] [place] [address]- 0149 Mar, [facility] [place] [facility] [address] [id number] [address]- 3918 Mar, [facility] [place] [facility] [address] [id number] [place] [address]- 8394 Mar, [facility] [place] [facility] [address] [id number] [place] [address]- 6746 Mar, [facility] [place] [facility] [address] [id number], [place] [address]- 5639 Mar, [facility] [place] [facility] [address] [id number], [place] [address]- 8216 Mar, [facility] [address] [id number] [place] [address]- 7960 Dec, [facility] [place] [facility] [address] [id number] [place] [address]- 4490 Dec, [facility] [place] [facility] [address] [id number] [place] [address]- 7356 Dec, [facility] [place] [facility] [address] [id number] [place] [address]- 5278 Dec, [facility] [place] [facility] [address] [id number] [place] [address]- 7907 Oct, [facility] [place] [facility] [address] [id number] [place] [address]- 6155 Oct, [facility] [address] [id number] [place] [address]- 5686 May, [facility] [place] [facility] [address] [id number] [place] [address]- 3748 Apr, [facility] [address] [id number] [place] [address]- 0807 Apr, [facility] [place] [facility] [address] [id number] [place] [address]- 5766 December, [facility] [place] [facility] [address] [id number] [place] [address]- 1038 Dec, [facility] [place] [facility] [address] [id number] [place] [address]- 3033 Sep, [facility] [place] [facility] [address] [id number] [place] [address]- 0071 Sep, [facility] [place] [facility] [address] [id number] [place] [address]- 5431 Sep, [facility] [place] [facility] [address] [id number] [place] [address]- 3425 Jul, [facility] [place] [facility] [address] [id number] [place] [address]- 6234 05 May, 2012 [facility] [place] [facility] [address] [id number] [place] [address]- 3088 05 May, 2012 [facility] [place] [facility] [address] [id number] [place] [address]- 7096 04 May, 2012 [facility] [place] [facility] [address] [id number] [place] [address]- 7255 27 Apr, 2012 [facility] [place] [facility] [address] [id number] [place] [address]- 2422 15 Apr, 2012 [facility] [place] [facility] [address] [id number] [place] [address]- 9927 14 Apr, 2012 [facility] [place] [facility] [address] [id number] [place] [address]- 3434 Mar, [facility] [place] [facility] [address] [id number] [place] [address]- 9819 Mar, [facility] [place] [facility] [address] [id number] [place] [address]- 3128 Dec, [facility] [place] [facility] [address] [id number] [place] [address]- 9229 Oct, [facility] [place] [facility] [address] [id number] [place] [address]- 5568 Oct, [facility] [place] [facility] [address] [id number] [place] [address]- 1821 Oct, [facility] [place] [facility] [address] [id number] [place] [address]- 9228 Oct, [facility] [place] [facility] [address] [id number] [place] [address]- 4986 Oct, [facility] [place] [facility] [address] [id number] [place] [address]- 4907 Aug, [facility] [place] [facility] [address] [id number] [place] [address]- 4066 17 Sep, 2010 [facility] [address] [facility] [id number] [place] [address]- 5310 13 May, 2010 [facility] [address] [facility] [id number] [place] [address]- 0140 17 Jul, 2009 [facility] [address] [facility] [id number] [place] [address]- 0896 16 Jul, 2009 [facility] [address] [facility] [id number], [place] [address]- 9692 10 May, 2009 IMMUNIZATIONS No Known Immunizations SOCIAL HISTORY Never Assessed REASON FOR VISIT BP Update PLAN OF CARE VITAL SIGNS MEDICATIONS Unknown [...]
--- OUTSIDE RECORDS SUMMARY | 2018-10-14 15:15 | XMS REPORT ---
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 Active [id number] Problem Hyperbilirubinemia E80.6 Active 10219177 Problem Non-ischemic cardiomyopathy I42.9 Apr, Active 24988382 Problem S/P CABG (coronary artery bypass graft) Z95.1 Active 572554567 Problem Risk for falls Z91.81 Active 816636618 Problem Chronic kidney disease, unspecified CKD stage N18.9 Active 653656216 Problem Increased ammonia level R79.89 Active 625347926 Problem Chronic atrial fibrillation I48.2 Active 225954185 Problem Essential hypertension I10 Active 07485411 Problem Atypical atrial flutter I48.4 Apr, Active 7685893 Problem Coronary 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 pectoris I25.10 Active 0708188904215 Problem Hyperammonemia E72.20 Active 8241400 Problem Dilated cardiomyopathy I42.0 Active 652959098 Problem Typical atrial flutter I48.3 Active 945271112 Problem Nonsustained ventricular tachycardia I47.2 Active 494483084 Problem Hypokalemia E87.6 Active 19771568 Problem Acute on chronic systolic (congestive) heart failure I50.23 Active 592151800 Problem Hx of renal calculi Z87.442 Active 916965862 Problem Chronic gout, unspecified cause, unspecified site M1A.9XX0 Active 38655218 Problem Persistent atrial fibrillation I48.1 Active 264222934 ALLERGIES No Information ENCOUNTERS Encounter Location Date Diagnosis [place] [id number] [place] [address] 39859- 8164 Apr, [place] [id number] [place] [address] 95218- 8086 December, [place] [id number] [place] [address] 62202- 6365 December, [place] [id number] [place] [address] 23296- 9856 Dec, Hyperammonemia E72.20 [place] [id number] [place] [address] 72673- 9286 Oct, Increased ammonia level R79.89 ; Pleural effusion, left J90 ; Dilated cardiomyopathy I42.0 ; Weakness R53.1 ; Gait disturbance R26.9 and Diabetes mellitus E11.9 [place] [id number] [place] [address] 82765- 4380 Oct, [place] [id number] [place] [address] 44936- 6831 Oct, [facility] [id number] [place] [address] 29805- 7689 Oct, [place] [id number] [place] [address] 83403- 8125 Oct, Weakness R53.1 and Gait disturbance R26.9 [place] [id number] [place] [address] 64208- 9044 Oct, Weakness R53.1 ; 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 ; Type 2 diabetes mellitus without complication E11.9 ; Chronic kidney disease, unspecified CKD stage N18.9 ; Chronic atrial fibrillation I48.2 and Hypokalemia E87.6 [place] [id number] [place] [address] 98735- 5599 Oct, Dilated cardiomyopathy I42.0 ; 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 ; Type 2 diabetes mellitus without complication E11.9 and Chronic atrial fibrillation I48.2 [place] [id number] [place] [address] 77322- 8468 09 Oct, 2017 [place] [id number] [place] [address] 20002- 3114 Oct, Hypokalemia E87.6 ; Other specified hypotension I95.89 ; Type 2 diabetes mellitus without complication E11.9 and Weakness R53.1 [place] [address] 96176- 9705 Sep, Hypokalemia E87.6 [place] [address] 70614- 2957 Sep, Chronic kidney disease, unspecified CKD stage N18.9 [place] [address] 81366- 4422 Sep, Type 2 diabetes mellitus without complication E11.9 ; Cough R05 and Chronic kidney disease, unspecified CKD stage N18.9 [place] [id number] [place] [address] 91184- 7981 Aug, Hypokalemia E87.6 and Acute bronchitis, unspecified organism J20.9 [place] [id number] [place] [address] 20749- 9634 Aug, Gait disturbance R26.9 ; Risk for falls Z91.81 ; Acute bronchitis, unspecified organism J20.9 and Hypokalemia E87.6 [place] [id number] [place] [address] 31325- 2904 Aug, Hypokalemia E87.6 [place] [id number] [place] [address] 67162- 2489 Jul, [place] [address] 44485- 9575 Jul, Encounter for immunization Z23 [facility] [id number] [place] [address] 14085- 9309 Jun, Encounter for immunization Z23 [place] [address] 97043- 7424 Apr, Type 2 diabetes mellitus without complication E11.9 [place] [address] 74512- 2831 Mar, [place] [address] 68676- 0162 Jan, [place] [address] 79074- 3965 Oct, 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 ; Weakness R53.1 and Gait disturbance R26.9 [place] [address] 30732- 4870 Oct, [place] [address] [id number] Oct, [place] [address] 23102- 6028 Oct, 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 ; 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 and Typical atrial flutter I48.3 [place] [id number] [place] [address] 90963- 7798 03 Oct, 2016 Hx of atrioventricular node ablation Z98.890 ; 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 and Type 2 diabetes mellitus with hypoglycemia without coma, without long-term current use of insulin E11.649 [place] [id number] [place] [address] 00484- 3257 Sep, Chronic gout, unspecified cause, unspecified site M1A.9XX0 [place] [address] 80666- 6988 Sep, Type 2 diabetes mellitus without complication E11.9 [place] [address] [address]- 6771 Sep, Persistent atrial fibrillation I48.1 ; 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 and Non-ischemic cardiomyopathy I42.9 [place] [address] [address]- 2281 Sep, Persistent atrial fibrillation I48.1 ; 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 and Non-ischemic cardiomyopathy I42.9 [place] [address] [address]- 7163 Aug, 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 [place] [id number] [place] [address] 81151- 7784 Jul, Type 2 diabetes mellitus without complication E11.9 [place] [id number] [place] [address] 25053- 8166 Jul, Coronary 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 pectoris I25.10 ; Typical atrial flutter I48.3 ; 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 ; Acute on chronic systolic (congestive) heart failure I50.23 ; Dilated cardiomyopathy I42.0 and Status post internal cardiac defibrillator procedure Z95.810 [place] [address], [place] [address]- 4640 May, Coronary 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 pectoris I25.10 ; Dilated cardiomyopathy I42.0 and Typical atrial flutter I48.3 [place] [address], [place] [address]- 4862 Apr, [place] [id number] [place] [address] 11152- 8438 Apr, Coronary 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 pectoris I25.10 ; Type 2 diabetes mellitus without complication E11.9 and 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 [facility] [address] [facility] [id number] [address] 2633 Apr, [facility] [address], [place] [address]- 8914 Apr, [facility] [address] [place] [address]- 8572 Apr, Dilated cardiomyopathy I42.0 ; Coronary 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 pectoris I25.10 ; Typical atrial flutter I48.3 and Automatic implantable cardioverter- defibrillator in situ Z95.810 [facility] [address] [place] [address]- 2343 Mar, Chronic gout, unspecified cause, unspecified site M1A.9XX0 [facility] [address], [place] [address]- 4729 Mar, [facility] [address] [place] [address]- 0289 Jan, [facility] [address], [place] [address]- 7035 Jan, Left arm swelling M79.89 ; Diabetes mellitus E11.9 and CAD ( coronary artery disease) I25.10 [facility] [id number] [address]- 6808 Jan, Essential hypertension I10 ; 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 ; Type 2 diabetes mellitus without complication E11.9 and Coronary 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 pectoris I25.10 [facility] [id number], [place] [address]- 5821 Jan, [facility] [address] [place] [address]- 8234 Jan, [facility] [id number], [place] [address]- 6830 Jan, [facility] [address], [place] [address]- 2213 December, [facility] [id number] [place] [address] 14100- 0546 December, [facility] [id number] [place] [address] 14663- 8464 December, Type 2 diabetes mellitus with complication, without long- term current use of insulin E11.8 ; Hyperlipidemia, unspecified hyperlipidemia type E78.5 and Neuropathy G62.9 [place] [id number] [place] [address] 36410- 6448 Dec, [place] [id number] [place] [address] 82236- 0694 Oct, [place] [id number] [place] [address] 92458- 0987 Oct, Dilated cardiomyopathy I42.0 ; CAD (coronary artery disease ) I25.10 ; Typical atrial flutter I48.3 and Diabetes mellitus type II, controlled E11.9 [place] [id number] [place] [address] 69004- 5983 Aug, Diabetes mellitus E11.9 and History of atrial flutter Z86.79 [place] [id number] [place] [address] 44905- 5329 May, [place] [id number] [place] [address] 69304- 4941 May, Hyperkalemia 276.7 and Atrial flutter 427.32 [place] [id number] [place] [address] 58744- 2939 May, [place] [id number] [place] [address] 29262- 0845 May, [place] [id number] [place] [address] 03747- 4832 May, [place] [id number] [place] [address] 86570- 0033 Apr, [facility] [address], [place] [address]- 3990 Apr, A-fib 427.31 ; Chronic ischemic heart disease, 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 ; Ischemic cardiomyopathy 414.8 ; Chronic combined systolic and diastolic heart failure 428.42 and Diabetes with hyperosmolarity, type II or unspecified type, uncontrolled 250.22 [facility] [id number] [place] [address] 67679- 3914 Apr, [facility] [id number] [address]- 1197 Apr, [facility] [id number] [place] [address] 26801- 5555 Apr, [facility] [id number] [place] [address] 14303- 0211 Mar, CAD (coronary artery disease) 414.00 ; Diabetes mellitus, type 2 250.00 and HTN (hypertension), benign 401.1 [facility] [address], [place] [address]- 3659 Mar, Diabetes mellitus, type II 250.00 and CAD (coronary artery disease) 414.00 [facility] [address], [place] [address]- 2193 Mar, [facility] [address], [place] [address]- 0044 Mar, [facility] [address], [place] [address]- 5743 Jan, [facility] [address], [place] [address]- 6357 December, [facility] [address], [place] [address]- 1049 December, [facility] [address], [place] [address]- 2840 Dec, [facility] [place] [facility] [address] [id number] [place] [address]- 7650 Dec, [facility] [place] [facility] [address] [id number] [place] [address]- 4722 Oct, [facility] [place] [facility] [address] [id number] [place] [address]- 0140 Oct, [facility] [place] [facility] [address] [id number] [place] [address]- 2710 Sep, [facility] [place] [facility] [address] [id number] [place] [address]- 0276 Sep, [facility] [place] [facility] [address] [id number] [place] [address]- 0507 Sep, [facility] [place] [facility] [address] [id number] [place] [address]- 9621 Sep, [facility] [place] [facility] [address] [id number] [place] [address]- 1228 Aug, [facility] [place] [facility] [address] [id number] [place] [address]- 4469 Aug, [facility] [place] [facility] [address] [id number] [place] [address]- 5811 Mar, [facility] [place] [facility] [address] [id number] [place] [address]- 5746 Mar, [facility] [place] [facility] [address] [id number] [place] [address]- 9325 Mar, [facility] [place] [facility] [address] [id number] [place] [address]- 3622 Mar, [facility] [place] [facility] [address] [id number] [place] [address]- 7421 Mar, [facility] [place] [facility] [address] [id number] [place] [address]- 3059 Mar, [facility] [place] [facility] [address] [id number] [place] [address]- 9118 Mar, [facility] [place] [facility] [address] [id number] [place] 5924 Dec, [facility] [place] [facility] [address] [id number] [place] [address]- 7089 Dec, [facility] [place] [facility] [address] [id number] [place] [address]- 8713 Dec, [facility] [place] [facility] [address] [id number] [place] [address]- 5397 Dec, [facility] [place] [facility] [address] [id number] [place] [address]- 0967 Oct, [facility] [place] [facility] [address] [id number] [place] [address]- 4450 Oct, [facility] [place] [facility] [address] [id number] [place] [address]- 0503 May, [facility] [place] [facility] [address] [id number] [place] [address]- 1672 Apr, [facility] [place] [facility] [address] [id number] [place] [address]- 4573 Apr, [facility] [place] [facility] [address] [id number] [place] [address]- 0247 December, [facility] [place] [facility] [address] [id number] [place] [address]- 8505 Dec, [facility] [place] [facility] [address] [id number] [place] [address]- 1835 Sep, [facility] [place] [facility] [address] [id number] [place] [address]- 3723 Sep, [facility] [place] [facility] [address] [id number] [place] [address]- 7042 Sep, [facility] [place] [facility] [address] [id number] [place] [address]- 2117 Jul, [facility] [place] [facility] [address] [id number] [place] [address]- 2546 05 May, 2012 [facility] [address] [id number] [place] [address]- 3490 05 May, 2012 [facility] [place] [facility] [address] [id number] [place] [address]- 8976 04 May, 2012 [facility] [address] [id number] [place] [address]- 2888 27 Apr, 2012 [facility] [address] [id number] [place] [address]- 2421 15 Apr, 2012 [facility] [address] [id number] [place] [address]- 3644 14 Apr, 2012 [facility] [address] [id number] [place] [address]- 8485 13 Mar, 2012 [facility] [address] [id number] [place] [address]- 4542 Mar, [facility] [address] [id number] [place] [address]- 7781 Dec, [facility] [address] [id number] [place] [address]- 7049 Oct, [facility] [address] [id number] [place] [address]- 2735 Oct, [facility] [address] [id number] [place] [address]- 5984 Oct, [facility] [address] [id number] [place] [address]- 5702 08 Nov, 2011 [facility] [place] [facility] [address] [id number] [place] [address]- 3811 06 Nov, 2011 [facility] [address] [id number] [place] [address]- 4976 Aug, [facility] [address] [id number] [place] 3834 17 Sep, 2010 [facility] [address] [facility] [id number], [place] [address]- 8854 13 May, 2010 [facility] [address] [facility] [id number], [place] [address]- 8574 17 Jul, 2009 [facility] [address] [facility] [id number], [place] [address]- 0260 16 Jul, 2009 [facility] [address] [facility] [id number], [place] [address]- 0934 10 May, 2009 IMMUNIZATIONS No Known Immunizations SOCIAL HISTORY Never Assessed REASON FOR VISIT Lab Order PLAN OF CARE VITAL SIGNS MEDICATIONS Unknown Medications RESULTS Name Result Date Reference Range [facility] 2017-10-25 Request Problem NTI Urine Tube ([place]) Ingrid Hua [facility]14 Default Request Problem Request Problem Sodium, Serum Potassium, Serum Chloride, Serum Carbon Dioxide, Total BUN Creatinine, Serum eGFR If NonAfricn Am eGFR If Africn Am BUN/Creatinine Ratio Glucose, Serum Calcium, Serum Bilirubin, Total AST (SGOT) ALT (SGPT) Alkaline Phosphatase, S Protein, Total, Serum Albumin, Serum Globulin, Total A/G Ratio Specimen Identification Status Please note GLUCOSE UREA NITROGEN (BUN) CREATININE eGFR NON-AFR. MALAWIAN eGFR BUN/CREATININE RATIO SODIUM POTASSIUM CHLORIDE CARBON DIOXIDE CALCIUM PROTEIN, TOTAL ALBUMIN GLOBULIN ALBUMIN/GLOBULIN RATIO BILIRUBIN, TOTAL ALKALINE PHOSPHATASE AST ALT MAGNESIUM SERUM 2017-10-25 NTI Urine Tube ([place]) Please note Request Problem Request Problem Request Problem Magnesium, Serum MAGNESIUM PHOSPHORUS 2017-10-25 Request Problem Phosphorus, Serum 3.8 PHOSPHATE ( PHOSPHORUS) CBC 2017-10-25 ABSOLUTE LYMPHOCYTES Please note ABSOLUTE PLASMA CELLS WBC ABSOLUTE PROLYMPHOCYTES RBC ABSOLUTE REACTIVE LYMPHOCYTES Hemoglobin CBC MORPHOLOGY Hematocrit CONTAINER TYPE: MCV FINAL RESOLUTION MCH MCHC MESSAGE: NOTE RDW PLASMA CELLS Platelets NRBC PLATELET ESTIMATION Neutrophils PROLYMPHOCYTES Lymphs QUESTION/PROBLEM Monocytes WHITE BLOOD CELL COUNT Eos RED BLOOD CELL COUNT Basos HEMOGLOBIN HEMATOCRIT Immature Granulocytes MCV Neutrophils (Absolute) Lymphs (Absolute) MCH MCHC Monocytes(Absolute) Eos (Absolute) RDW Baso (Absolute) PLATELET COUNT Immature Grans (Abs) NEUTROPHILS BAND NEUTROPHILS Immature Cells Bands ABSOLUTE BAND NEUTROPHILS Blasts/blast like cells METAMYELOCYTES Megakaryocytes ABSOLUTE METAMYELOCYTES Metamyelocytes MYELOCYTES Myelocytes ABSOLUTE MYELOCYTES Other, Lineage Uncertain PROMYELOCYTES Promyelocytes ABSOLUTE PROMYELOCYTES ABSOLUTE NEUTROPHILS Hematology Comments: LYMPHOCYTES Request Problem REACTIVE LYMPHOCYTES Request Problem ABSOLUTE LYMPHOCYTES MONOCYTES ABSOLUTE MONOCYTES EOSINOPHILS ABSOLUTE EOSINOPHILS BASOPHILS ABSOLUTE BASOPHILS BLASTS ABSOLUTE BLASTS NUCLEATED RBC ABSOLUTE NUCLEATED RBC COMMENT(S) MPV PROCEDURES Procedure Date Ordered Result Body Site LAB NOT BILLED BY [facility] Oct 25, 2017 INSTRUCTIONS MEDICATIONS ADMINISTERED No Known Medications [...] influenza A, Sepsis, Pneumonia, Elevated liver enzymes -[facility] 10/21/16 Hospitalization History fatigue, observation 11/17
--- OUTSIDE RECORDS SUMMARY | 2018-10-14 15:15 | XMS REPORT ---
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 Active [id number] Problem Hyperbilirubinemia E80.6 Active 00981368 Problem Non-ischemic cardiomyopathy I42.9 Apr, Active 04746914 Problem S/P CABG (coronary artery bypass graft) Z95.1 Active 834185500 Problem Risk for falls Z91.81 Active 316501759 Problem Chronic kidney disease, unspecified CKD stage N18.9 Active 752474583 Problem Increased ammonia level R79.89 Active 459588311 Problem Chronic atrial fibrillation I48.2 Active 356752684 Problem Essential hypertension I10 Active 19743767 Problem Atypical atrial flutter I48.4 Apr, Active 6129815 Problem 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 Active 6109968787787 Problem Hyperammonemia E72.20 Active 5704616 Problem Dilated cardiomyopathy I42.0 Active 312185481 Problem Typical atrial flutter I48.3 Active 162216896 Problem Nonsustained ventricular tachycardia I47.2 Active 910223565 Problem Hypokalemia E87.6 Active 75939715 Problem Acute on chronic systolic (congestive) heart failure I50.23 Active 530040122 Problem Hx of renal calculi Z87.442 Active 140467765 Problem Chronic gout, unspecified cause, unspecified site M1A.9XX0 Active 72786343 Problem Persistent atrial fibrillation I48.1 Active 188286541 ALLERGIES No Known Allergies ENCOUNTERS Encounter Location Date Diagnosis [facility] [facility] [id number] [place] [address] 47094- 6785 December, [facility] [facility] [id number] [place] [address] 71017- 9184 December, [facility] [facility] [id number] [place] [address] 18989- 2188 Dec, Hyperammonemia E72.20 [facility] [id number] [place] [address] 06187- 7358 Oct, Increased ammonia level R79.89 ; Pleural effusion, left J90 ; Dilated cardiomyopathy I42.0 ; Weakness R53.1 ; Gait disturbance R26.9 and Diabetes mellitus E11.9 [facility] [id number] [place] [address] 84758- 9276 Oct, [facility] [facility] [id number] [place] [address] 76220- 7428 Oct, [facility] [id number] [place] [address] 25256- 1744 Oct, [facility] [id number] [place] [address] 92404- 4510 Oct, Weakness R53.1 and Gait disturbance R26.9 [facility] [facility] [id number] [place] [address] 83397- 3113 Oct, Weakness R53.1 ; 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 ; Type 2 diabetes mellitus without complication E11.9 ; Chronic kidney disease, unspecified CKD stage N18.9 ; Chronic atrial fibrillation I48.2 and Hypokalemia E87.6 [facility] [id number] [place] [address] 44191- 2764 Oct, Dilated cardiomyopathy I42.0 ; 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 ; Type 2 diabetes mellitus without complication E11.9 and Chronic atrial fibrillation I48.2 [facility] [address] 51910- 1798 09 Oct, 2017 [place] [address] 33441- 6090 05 Oct, 2017 Hypokalemia E87.6 ; Other specified hypotension I95.89 ; Type 2 diabetes mellitus without complication E11.9 and Weakness R53.1 [place] [address] 78958- 5186 Sep, Hypokalemia E87.6 [place] [address] 84342- 2736 Sep, Chronic kidney disease, unspecified CKD stage N18.9 [place] [address] 69080- 7033 Sep, Type 2 diabetes mellitus without complication E11.9 ; Cough R05 and Chronic kidney disease, unspecified CKD stage N18.9 [facility] [address] 29640- 3419 Aug, Hypokalemia E87.6 and Acute bronchitis, unspecified organism J20.9 [facility] [facility] [address] 52175- 3549 Aug, Gait disturbance R26.9 ; Risk for falls Z91.81 ; Acute bronchitis, unspecified organism J20.9 and Hypokalemia E87.6 [facility] [id number] [place] [address] 26578- 3810 Aug, Hypokalemia E87.6 [facility] [address] 30932- 4375 Jul, [place] [address] 62457- 5484 Jul, Encounter for immunization Z23 [facility] [address] 87391- 8198 Jun, Encounter for immunization Z23 [facility] [id number] [place] [address] 05090- 4500 Apr, Type 2 diabetes mellitus without complication E11.9 [place] [id number] [place] [address] 03909- 8526 Mar, [facility] [address] 71451- 8931 Jan, [place] [id number] [place] [address] 62469- 5409 Oct, 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 ; Weakness R53.1 and Gait disturbance R26.9 [place] [id number] [place] [address] 18303- 1418 Oct, [place] [facility] [address] [id number] Oct, [facility] [id number] [place] [address] 85073- 7473 Oct, 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 ; 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 and Typical atrial flutter I48.3 [place] [address] [place] [address] 98512- 8634 03 Oct, 2016 Hx of atrioventricular node ablation Z98.890 ; 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 and Type 2 diabetes mellitus with hypoglycemia without coma, without long-term current use of insulin E11.649 [place] [address] [place] [address] 76097- 7336 Sep, Chronic gout, unspecified cause, unspecified site M1A.9XX0 [place] [address] [place] [address] 75364- 0291 Sep, Type 2 diabetes mellitus without complication E11.9 [place] [address] [address]- 3788 Sep, Persistent atrial fibrillation I48.1 ; 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 and Non-ischemic cardiomyopathy I42.9 [place] [address] [place] [address] 99754- 2851 Sep, Persistent atrial fibrillation I48.1 ; 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 and Non-ischemic cardiomyopathy I42.9 [facility] [id number] [place] [address] 75333- 1465 Aug, 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 [facility] [facility] [id number] [place] [address] 85491- 7418 Jul, Type 2 diabetes mellitus without complication E11.9 [place] [id number] [place] [address] 23662- 0017 Jul, 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 ; Typical atrial flutter I48.3 ; 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 ; Acute on chronic systolic (congestive) heart failure I50.23 ; Dilated cardiomyopathy I42.0 and Status post internal cardiac defibrillator procedure Z95.810 [facility] [address] [place] [address] 94360- 0380 May, 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 ; Dilated cardiomyopathy I42.0 and Typical atrial flutter I48.3 [facility] [facility] [address] [address]- 5330 Apr, [facility] [id number] [place] [address] 93843- 4881 Apr, 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 ; Type 2 diabetes mellitus without complication E11.9 and 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 [place] [id number] [place] [address] 09777- 3791 Apr, [facility] [place] [address] [address]- 6344 Apr, [facility] [place] [address] [place] [address] 33205- 0272 Apr, Dilated cardiomyopathy I42.0 ; 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 ; Typical atrial flutter I48.3 and Automatic implantable cardioverter- defibrillator in situ Z95.810 [facility] [address] [address]- 7987 Mar, Chronic gout, unspecified cause, unspecified site M1A.9XX0 [facility] [id number] [place] [address] 05673- 4087 Mar, [facility] [id number] [place] [address] 18200- 1815 Jan, [facility] [place] [id number] [place] [address] 67304- 9062 Jan, Left arm swelling M79.89 ; Diabetes mellitus E11.9 and CAD ( coronary artery disease) I25.10 [facility] [address] [address]- 7935 Jan, Essential hypertension I10 ; 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 ; Type 2 diabetes mellitus without complication E11.9 and 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 [facility] [address] [address]- 6629 Jan, [facility] [address] [address]- 5683 Jan, [facility] [address] [address]- 1092 Jan, [facility] [address] [address]- 0573 December, [facility] [id number] [place] [address] 26063- 3990 December, [facility] [place] [id number] [place] [address] 85368- 6922 December, Type 2 diabetes mellitus with complication, without long- term current use of insulin E11.8 ; Hyperlipidemia, unspecified hyperlipidemia type E78.5 and Neuropathy G62.9 [place] [address] 05208- 7530 Dec, [place] [id number] [place] [address] 19492- 7360 Oct, [place] [id number] [place] [address] 87921- 8179 Oct, Dilated cardiomyopathy I42.0 ; CAD (coronary artery disease ) I25.10 ; Typical atrial flutter I48.3 and Diabetes mellitus type II, controlled E11.9 [place] [id number] [place] [address] 16699- 8560 Aug, Diabetes mellitus E11.9 and History of atrial flutter Z86.79 [place] [id number] [place] [address] 71919- 9681 May, [place] [id number] [place] [address] 57862- 6814 May, Hyperkalemia 276.7 and Atrial flutter 427.32 [place] [address] [place] [address] 76366- 5227 May, [place] [id number] [place] [address] 10984- 0567 May, [place] [id number] [place] [address] 03387- 7672 May, [place] [id number] [place] [address] 95088- 5528 Apr, [place] [address] [place] [address]- 6362 Apr, A-fib 427.31 ; Chronic ischemic heart disease, 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 ; Ischemic cardiomyopathy 414.8 ; Chronic combined systolic and diastolic heart failure 428.42 and Diabetes with hyperosmolarity, type II or unspecified type, uncontrolled 250.22 [facility] [id number] [place] [address] 64013- 3099 Apr, [facility] [id number] [place] [address] 49498- 4727 Apr, [facility] [id number] [place] [address] 88883- 9780 Apr, [facility] [id number] [place] [address] 32612- 7888 Mar, CAD (coronary artery disease) 414.00 ; Diabetes mellitus, type 2 250.00 and HTN (hypertension), benign 401.1 [facility] [id number] [place] [address] 97688- 2102 Mar, Diabetes mellitus, type II 250.00 and CAD (coronary artery disease) 414.00 [facility] [id number] [place] [address] 30777- 5166 Mar, [facility] [id number] [place] [address] 45731- 2799 Mar, [facility] [id number] [place] [address] 51356- 3524 Jan, [facility] [id number] [place] [address] 87740- 9785 December, [facility] [id number] [place] [address] 11050- 9901 December, [facility] [id number] [place] [address] 95102- 4731 Dec, [facility] [id number] [place] [address] 81204- 5792 Dec, [facility] [place] [facility] [address] [id number] [place] [address]- 9178 Oct, [facility] [place] [facility] [address] [id number] [place] [address]- 8919 Oct, [facility] [place] [facility] [address] [id number] [place] [address]- 5911 Sep, [facility] [place] [facility] [address] [id number] [place] [address]- 5030 Sep, [facility] [place] [facility] [address] [id number] [place] [address]- 5973 Sep, [facility] [place] [facility] [address] [id number] [place] [address]- 0134 Sep, [facility] [place] [facility] [address] [id number] [place] [address]- 2198 Aug, [facility] [place] [facility] [address] [id number] [place] [address]- 0372 Aug, [facility] [place] [facility] [address] [id number] [place] [address]- 0334 Mar, [facility] [place] [facility] [address] [id number] [place] [address]- 6504 Mar, [facility] [place] [facility] [address] [id number] [place] [address]- 4512 Mar, [facility] [place] [facility] [address] [id number] [place] [address]- 8496 Mar, [facility] [place] [facility] [address] [id number] [place] [address]- 4092 Mar, [facility] [place] [facility] [address] [id number] [place] [address]- 8877 Mar, [facility] [place] [facility] [address] [id number] [place] [address]- 3250 Mar, [facility] [place] [facility] [address] [id number] [place] [address]- 8907 Dec, [facility] [address] [id number] [place] [address]- 9232 Dec, [facility] [place] [facility] [address] [id number] [place] [address]- 7534 Dec, [facility] [address] [id number] [place] [address]- 5429 Dec, [facility] [place] [facility] [address] [id number] [place] [address]- 0360 Oct, [facility] [place] [facility] [address] [id number] [place] [address]- 1399 Oct, [facility] [place] [facility] [address] [id number] [place] [address]- 8490 May, [facility] [address] [id number] [place] [address]- 9872 Apr, [facility] [address] [id number] [place] [address]- 7154 Apr, [facility] [address] [id number] [place] [address]- 7571 December, [facility] [address] [id number] [place] [address]- 9371 Dec, [facility] [address] [id number] [place] [address]- 5409 Sep, [facility] [place] [facility] [address] [id number] [place] [address]- 7220 Sep, [facility] [place] [facility] [address] [id number] [place] [address]- 0402 Sep, [facility] [place] [facility] [address] [id number] [place] [address]- 9170 Jul, [facility] [place] [facility] [address] [id number] [place] [address]- 2044 May, [facility] [place] [facility] [address] [id number] [place] [address]- 7180 05 May, 2012 [facility] [place] [facility] [address] [id number] [place] [address]- 8121 04 May, 2012 [facility] [place] [facility] [address] [id number] [place] [address]- 4542 27 Apr, 2012 [facility] [place] [facility] [address] [id number] [place] [address]- 3969 15 Apr, 2012 [facility] [place] [facility] [address] [id number] [place] [address]- 1115 14 Apr, 2012 [facility] [place] [facility] [address] [id number] [place] [address]- 9878 Mar, [facility] [place] [facility] [address] [id number] [place] [address]- 1599 Mar, [facility] [place] [facility] [address] [id number] [place] [address]- 9128 Dec, [facility] [place] [facility] [address] [id number] [place] [address]- 5448 Oct, [facility] [place] [facility] [address] [id number] [place] [address]- 6262 Oct, [facility] [place] [facility] [address] [id number] [place] [address]- 8396 Oct, [facility] [place] [facility] [address] [id number] [place] [address]- 7905 Oct, [facility] [place] [facility] [address] [id number] [place] [address]- 0135 Oct, [facility] [place] [facility] [address] [id number] [place] [address]- 7744 Aug, [facility] [place] [facility] [address] [id number] [place] [address]- 4311 17 Sep, 2010 [facility] [place] [facility] [address] [id number] [address]- 9766 13 May, 2010 [facility] [address] [facility] [id number] [place] [address]- 1886 17 Jul, 2009 [facility] [address] [facility] [id number] [address]- 8686 16 Jul, 2009 [facility] [address] [facility] [id number] [address]- 8626 10 May, 2009 IMMUNIZATIONS No Known Immunizations SOCIAL HISTORY Never Assessed REASON FOR VISIT Diabetes-Cindy CARUSO PLAN OF CARE Activity Details Follow Up 4 Weeks Reason:foot sores VITAL SIGNS Height 74 in 2017-09-09 Weight 163.8 lbs 2017-09-09 Temperature 98.0 degrees Fahrenheit 2017-09-09 Heart Rate 68 bpm 2017-09-09 Respiratory Rate 18 2017-09-09 BMI 21.03 kg/m2 2017-09-09 Blood pressure systolic 104 mmHg 2017-09-09 Blood pressure diastolic 68 mmHg 2017-09-09 MEDICATIONS Medication Instructions Dosage Frequency Start Date End Date Duration Status Entresto 24-26 MG Orally Twice a day 1 tablet 12h Active Allopurinol 100 mg Orally Once a day 1 tablet 24h 90 Active Aspir-81 81 MG Orally Once a day 1 tablet 24h Active Garlic 1000 MG Active Klor-Con 10 Active Benzonatate 100 mg Orally Three times a day 1 capsule as needed 8h Sep, Sep, 07 days Active Lancets Ultra Thin Lancets test blood sugar 12h Sep, 30 days Not-Taking Blood Glucose Test Strip Test Strips test blood sugar 12h Sep, 30 days Not-Taking Eliquis 2.5 MG Orally 2 times a day 1 tablet 12h Apr, Active Cane - as directed Aug, Active Potassium Chloride Rosa ER 20 MEQ Orally 2 times a day 1 tablet 12h Active Furosemide 80 MG Orally Once a day 1 tablet in the morning 24h Active Metolazone 5 MG Orally Once a day 1 tablet 24h Active Amiodarone HCl 200 MG Orally Once a day 1 tablet 24h Active Metoprolol Succinate ER 50 MG Orally Once a day 1 tablet in the morning 24h Active GlyBURIDE 5 mg Orally Once a day 1/2 tablet 24h Mar, 90 Active Cod Liver Oil Active Blood Glucose Meter 1 glucometer test blood sugar 12h Sep, lifetime Not-Taking RESULTS No Results PROCEDURES Procedure Date Ordered Result Body Site GLYCATED HEMOGLOBIN TEST Sep 09, 2017 LAB NOT BILLED BY [facility] Sep 09, 2017 [facility] VISIT ESTABLISHED PATIENT Sep 09, 2017 VENALEXX, ROUTINE* Sep 09, 2017 INSTRUCTIONS MEDICATIONS ADMINISTERED No Known Medications [...]
--- OUTSIDE RECORDS SUMMARY | 2018-10-14 15:15 | XMS REPORT ---
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 Active 812125742499536 Problem Hyperbilirubinemia E80.6 Active 88035094 Problem Non-ischemic cardiomyopathy I42.9 Apr, Active 08406374 Problem S/P CABG (coronary artery bypass graft) Z95.1 Active 023278310 Problem Risk for falls Z91.81 Active 487583415 Problem Chronic kidney disease, unspecified CKD stage N18.9 Active 341583203 Problem Increased ammonia level R79.89 Active 271379810 Problem Chronic atrial fibrillation I48.2 Active 888666273 Problem Essential hypertension I10 Active 45259411 Problem Atypical atrial flutter I48.4 Apr, Active 5758007 Problem Coronary artery disease involving [place] coronary artery of [place] heart without angina pectoris I25.10 Active 3733303408184 Problem Hyperammonemia E72.20 Active 1555088 Problem Dilated cardiomyopathy I42.0 Active 692323950 Problem Typical atrial flutter I48.3 Active 590196993 Problem Nonsustained ventricular tachycardia I47.2 Active 878740464 Problem Hypokalemia E87.6 Active 26592191 Problem Acute on chronic systolic (congestive) heart failure I50.23 Active 843401691 Problem Hx of renal calculi Z87.442 Active 660048007 Problem Chronic gout, unspecified cause, unspecified site M1A.9XX0 Active 12302602 Problem Persistent atrial fibrillation I48.1 Active 021609770 ALLERGIES No Information ENCOUNTERS Encounter Location Date Diagnosis [place] [id number] [place] [address] 71088- 0394 December, [place] [id number] [place] [address] 88101- 6639 December, [place] [id number] [place] [address] 71150- 8550 Dec, Hyperammonemia E72.20 [place] [id number] [place] [address] 11742- 5643 Oct, Increased ammonia level R79.89 ; Pleural effusion, left J90 ; Dilated cardiomyopathy I42.0 ; Weakness R53.1 ; Gait disturbance R26.9 and Diabetes mellitus E11.9 [place] [id number] [place] [address] 07856- 5303 Oct, [place] [id number] [place] [address] 09129- 5416 Oct, [place] [id number] [place] [address] 05417- 8015 Oct, [place] [id number] [place] [address] 28931- 3509 Oct, Weakness R53.1 and Gait disturbance R26.9 [place] [id number] [place] [address] 07912- 5075 Oct, Weakness R53.1 ; 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 ; Type 2 diabetes mellitus without complication E11.9 ; Chronic kidney disease, unspecified CKD stage N18.9 ; Chronic atrial fibrillation I48.2 and Hypokalemia E87.6 [place] [id number] [place] [address] 34053- 8969 Oct, Dilated cardiomyopathy I42.0 ; 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 ; Type 2 diabetes mellitus without complication E11.9 and Chronic atrial fibrillation I48.2 [place] [address] 03218- 7385 09 Oct, 2017 [place] [address] 98152- 6447 05 Oct, 2017 Hypokalemia E87.6 ; Other specified hypotension I95.89 ; Type 2 diabetes mellitus without complication E11.9 and Weakness R53.1 [place] [address] 93308- 9893 Sep, Hypokalemia E87.6 [place] [address] 63514- 7995 Sep, Chronic kidney disease, unspecified CKD stage N18.9 [place] [address] 06695- 5089 Sep, Type 2 diabetes mellitus without complication E11.9 ; Cough R05 and Chronic kidney disease, unspecified CKD stage N18.9 [place] [address] 87619- 3073 Aug, Hypokalemia E87.6 and Acute bronchitis, unspecified organism J20.9 [place] [address] 29982- 1754 Aug, Gait disturbance R26.9 ; Risk for falls Z91.81 ; Acute bronchitis, unspecified organism J20.9 and Hypokalemia E87.6 [place] [id number] [place] [address] 16341- 5218 Aug, Hypokalemia E87.6 [place] [address] 96677- 0079 Jul, [place] [address] 36335- 8300 Jul, Encounter for immunization Z23 [place] [address] 11207- 7408 Jun, Encounter for immunization Z23 [place] [id number] [place] [address] 18625- 8515 Apr, Type 2 diabetes mellitus without complication E11.9 [place] [id number] [place] [address] 00681- 0080 Mar, [place] [id number] [place] [address] 40579- 6497 Jan, [place] [id number] [place] [address] 31795- 0066 Oct, 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 ; Weakness R53.1 and Gait disturbance R26.9 [place] [id number] [place] [address] 05001- 0726 Oct, [place] [id number] [place] [address] [id number] Oct, [place] [id number] [place] [address] 23683- 9318 Oct, 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 ; 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 and Typical atrial flutter I48.3 [place] [id number] [place] [address] 71007- 8403 03 Oct, 2016 Hx of atrioventricular node ablation Z98.890 ; 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 and Type 2 diabetes mellitus with hypoglycemia without coma, without long-term current use of insulin E11.649 [place] [id number] [place] [address] 15321- 8842 Sep, Chronic gout, unspecified cause, unspecified site M1A.9XX0 [place] [id number] [place] [address] 98144- 4051 Sep, Type 2 diabetes mellitus without complication E11.9 [place] [id number] [address] 7864 Sep, Persistent atrial fibrillation I48.1 ; 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 and Non-ischemic cardiomyopathy I42.9 [place] [id number] [place] [address] 11257- 6302 Sep, Persistent atrial fibrillation I48.1 ; 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 and Non-ischemic cardiomyopathy I42.9 [place] [id number] [place] [address] 17484- 8456 Aug, 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 [place] [id number] [place] [address] 09140- 2947 Jul, Type 2 diabetes mellitus without complication E11.9 [place] [id number] [place] [address] 01013- 8614 Jul, Coronary artery disease involving [place] coronary artery of [place] heart without angina pectoris I25.10 ; Typical atrial flutter I48.3 ; 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 ; Acute on chronic systolic (congestive) heart failure I50.23 ; Dilated cardiomyopathy I42.0 and Status post internal cardiac defibrillator procedure Z95.810 [place] [id number] [place] [address] 39801- 1291 May, Coronary artery disease involving [place] coronary artery of [place] heart without angina pectoris I25.10 ; Dilated cardiomyopathy I42.0 and Typical atrial flutter I48.3 [place] [id number] [place] [address] 18421- 4328 Apr, [place] [id number] [place] [address] 61108- 2313 Apr, Coronary artery disease involving [place] coronary artery of [place] heart without angina pectoris I25.10 ; Type 2 diabetes mellitus without complication E11.9 and 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 [place] [id number] [place] [address] 11622- 3110 Apr, [facility] [address] [address]- 5370 Apr, [facility] [id number] [place] [address] 93576- 5744 Apr, Dilated cardiomyopathy I42.0 ; Coronary artery disease involving [place] coronary artery of [place] heart without angina pectoris I25.10 ; Typical atrial flutter I48.3 and Automatic implantable cardioverter- defibrillator in situ Z95.810 [facility] [address] [address]- 8070 Mar, Chronic gout, unspecified cause, unspecified site M1A.9XX0 [facility] [id number] [place] [address] 32809- 8817 Mar, [facility] [id number] [place] [address] 13407- 5591 Jan, [facility] [id number] [place] [address] 08434- 1008 Jan, Left arm swelling M79.89 ; Diabetes mellitus E11.9 and CAD ( coronary artery disease) I25.10 [facility] [address] [address]- 3282 Jan, Essential hypertension I10 ; 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 ; Type 2 diabetes mellitus without complication E11.9 and Coronary artery disease involving [place] coronary artery of [place] heart without angina pectoris I25.10 [facility] [address] [address]- 3101 Jan, [facility] [address] [address]- 0010 Jan, [facility] [address] [address]- 2572 Jan, [facility] [address] [address]- 0246 December, [place] [id number] [place] [address] 92950- 2872 December, [facility] [id number] [place] [address] 10561- 8659 December, Type 2 diabetes mellitus with complication, without long- term current use of insulin E11.8 ; Hyperlipidemia, unspecified hyperlipidemia type E78.5 and Neuropathy G62.9 [place] [address] 56246- 3124 Dec, [place] [id number] [place] [address] 15775- 6214 Oct, [place] [id number] [place] [address] 36833- 3828 Oct, Dilated cardiomyopathy I42.0 ; CAD (coronary artery disease ) I25.10 ; Typical atrial flutter I48.3 and Diabetes mellitus type II, controlled E11.9 [place] [id number] [place] [address] 46582- 7439 Aug, Diabetes mellitus E11.9 and History of atrial flutter Z86.79 [place] [id number] [place] [address] 38701- 2454 May, [place] [id number] [place] [address] 31312- 6086 May, Hyperkalemia 276.7 and Atrial flutter 427.32 [place] [id number] [place] [address] 04729- 6665 May, [place] [id number] [place] [address] 86213- 9874 May, [place] [id number] [place] [address] 46452- 6765 May, [place] [id number] [place] [address] 47171- 6750 Apr, [place] [address] [place] [address]- 4578 Apr, A-fib 427.31 ; Chronic ischemic heart disease, 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 ; Ischemic cardiomyopathy 414.8 ; Chronic combined systolic and diastolic heart failure 428.42 and Diabetes with hyperosmolarity, type II or unspecified type, uncontrolled 250.22 [facility] [id number] [place] [address] 86641- 1064 Apr, [facility] [address] 21881- 4298 Apr, [facility] [id number] [place] [address] 82760- 7381 Apr, [facility] [id number] [place] [address] 56532- 4317 Mar, CAD (coronary artery disease) 414.00 ; Diabetes mellitus, type 2 250.00 and HTN (hypertension), benign 401.1 [facility] [id number] [place] [address] 69079- 8538 Mar, Diabetes mellitus, type II 250.00 and CAD (coronary artery disease) 414.00 [facility] [id number] [place] [address] 44864- 5241 Mar, [facility] [id number] [place] [address] 80951- 3468 Mar, [facility] [id number] [place] [address] 92526- 3744 Jan, [facility] [id number] [place] [address] 65749- 7941 December, [facility] [id number] [place] [address] 18963- 4205 December, [facility] [id number] [place] [address] 93952- 2695 Dec, [facility] [id number] [place] [address] 32317- 7264 Dec, [facility] [place] [facility] [address] [id number] [place] [address]- 0075 Oct, [facility] [place] [facility] [address] [id number] [place] [address]- 1456 Oct, [facility] [place] [facility] [address] [id number] [place] [address]- 0346 Sep, [facility] [place] [facility] [address] [id number] [place] [address]- 4727 Sep, [facility] [place] [facility] [address] [id number] [place] [address]- 8573 Sep, [facility] [place] [facility] [address] [id number] [place] [address]- 2795 Sep, [facility] [place] [facility] [address] [id number] [place] [address]- 1944 Aug, [facility] [place] [facility] [address] [id number] [place] [address]- 6979 Aug, [facility] [place] [facility] [address] [id number] [place] [address]- 5700 Mar, [facility] [place] [facility] [address] [id number] [place] [address]- 5576 Mar, [facility] [place] [facility] [address] [id number] [place] [address]- 8685 Mar, [facility] [place] [facility] [address] [id number] [address]- 6247 Mar, [facility] [place] [facility] [address] [id number] [place] [address]- 4111 Mar, [facility] [place] [facility] [address] [id number] [place] [address]- 7592 Mar, [facility] [place] [facility] [address] [id number] [place] [address]- 2662 Mar, [facility] [place] [facility] [address] [id number] [address]- 8282 Dec, [facility] [address] [id number] [place]- 3980 Dec, [facility] [place] [facility] [address] [id number] [place] [address]- 2610 Dec, [facility] [place] [facility] [address] [id number] [place] [address]- 0520 Dec, [facility] [place] [facility] [address] [id number] [place] [address]- 6424 Oct, [facility] [place] [facility] [address] [id number] [place] [address]- 9156 Oct, [facility] [place] [facility] [address] [id number] [place] [address]- 4525 May, [facility] [address] [id number] [place] [address]- 7559 Apr, [facility] [place] [facility] [address] [id number] [place] [address]- 3797 Apr, [facility] [address] [id number] [place] [address]- 2849 December, [facility] [address] [id number] [place] [address]- 1797 Dec, [facility] [address] [id number] [place] [address]- 4243 Sep, [facility] [place] [facility] [address] [id number] [place] [address]- 6491 Sep, [facility] [place] [facility] [address] [id number] [place] [address]- 0930 Sep, [facility] [place] [facility] [address] [id number] [place] [address]- 3374 Jul, [facility] [place] [facility] [address] [id number] [place] [address]- 6493 May, [facility] [place] [facility] [address] [id number] [place] [address]- 3029 05 May, 2012 [facility] [place] [facility] [address] [id number] [place] [address]- 7553 04 May, 2012 [facility] [place] [facility] [address] [id number] [place] [address]- 4260 Apr, [facility] [place] [facility] [address] [id number] [place] [address]- 8770 15 Apr, 2012 [facility] [place] [facility] [address] [id number] [place] [address]- 4148 14 Apr, 2012 [facility] [place] [facility] [address] [id number] [place] [address]- 4014 Mar, [facility] [place] [facility] [address] [id number] [place] [address]- 5313 Mar, [facility] [place] [facility] [address] [id number] [place] [address]- 7551 Dec, [facility] [place] [facility] [address] [id number] [place] [address]- 5682 Oct, [facility] [place] [facility] [address] [id number] [place] [address]- 1931 Oct, [facility] [place] [facility] [address] [id number] [place] [address]- 9528 Oct, [facility] [place] [facility] [address] [id number] [place] [address]- 3935 Oct, [facility] [place] [facility] [address] [id number] [place] [address]- 8730 Oct, [facility] [place] [facility] [address] [id number] [place] [address]- 4306 Aug, [facility] [place] [facility] [address] [id number] [place] [address]- 5525 Sep, [facility] [place] [facility] [address] [id number] [place] [address]- 9720 13 May, 2010 [facility] [address] [facility] [id number] [place] [address]- 7196 17 Jul, 2009 [facility] [address] [facility] [id number] [place] [address]- 0712 16 Jul, 2009 [facility] [address] [facility] [id number] [place] [address]- 0307 10 May, 2009 IMMUNIZATIONS No Known Immunizations SOCIAL HISTORY Never Assessed REASON FOR VISIT lab order PLAN OF CARE VITAL SIGNS MEDICATIONS Unknown [...] influenza A, Sepsis, Pneumonia, Elevated liver enzymes -[facility] 10/21/16 Hospitalization History fatigue, observation 11/17
--- OUTSIDE RECORDS SUMMARY | 2018-10-14 15:16 | XMS REPORT ---
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 Active [id number] Problem Hyperbilirubinemia E80.6 Active 88139990 Problem Non-ischemic cardiomyopathy I42.9 Apr, Active 38056804 Problem S/P CABG (coronary artery bypass graft) Z95.1 Active 187499086 Problem Risk for falls Z91.81 Active 125797155 Problem Chronic kidney disease, unspecified CKD stage N18.9 Active 512994226 Problem Increased ammonia level R79.89 Active 250990231 Problem Chronic atrial fibrillation I48.2 Active 439476611 Problem Essential hypertension I10 Active 90629712 Problem Atypical atrial flutter I48.4 Apr, Active 7860690 Problem Coronary artery disease involving winneb[place] coronary artery of win[place] heart without angina pectoris I25.10 Active 9923064495729 Problem Hyperammonemia E72.20 Active 5375530 Problem Dilated cardiomyopathy I42.0 Active 493713230 Problem Typical atrial flutter I48.3 Active 328800026 Problem Nonsustained ventricular tachycardia I47.2 Active 342224388 Problem Hypokalemia E87.6 Active 80027235 Problem Acute on chronic systolic (congestive) heart failure I50.23 Active 540027475 Problem Hx of renal calculi Z87.442 Active 216984405 Problem Chronic gout, unspecified cause, unspecified site M1A.9XX0 Active 68266584 Problem Persistent atrial fibrillation I48.1 Active 068255769 ALLERGIES No Information ENCOUNTERS Encounter Location Date Diagnosis [place] [id number] [place] [address] 18457- 8102 Apr, [place] [id number] [place] [address] 17219- 5592 December, [place] [id number] [place] [address] 00596- 5283 December, [place] [id number] [place] [address] 78036- 2075 Dec, Hyperammonemia E72.20 [place] [id number] [place] [address] 11987- 4507 Oct, Increased ammonia level R79.89 ; Pleural effusion, left J90 ; Dilated cardiomyopathy I42.0 ; Weakness R53.1 ; Gait disturbance R26.9 and Diabetes mellitus E11.9 [place] [id number] [place] [address] 70266- 4482 Oct, [place] [id number] [place] [address] 92760- 8792 Oct, [facility] [place] [id number] [place] [address] 32128- 0768 Oct, [place] [id number] [place] [address] 54301- 5206 Oct, Weakness R53.1 and Gait disturbance R26.9 [place] [id number] [place] [address] 89807- 9467 Oct, Weakness R53.1 ; 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 ; Type 2 diabetes mellitus without complication E11.9 ; Chronic kidney disease, unspecified CKD stage N18.9 ; Chronic atrial fibrillation I48.2 and Hypokalemia E87.6 [place] [id number] [place] [address] 89852- 4696 Oct, Dilated cardiomyopathy I42.0 ; 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 ; Type 2 diabetes mellitus without complication E11.9 and Chronic atrial fibrillation I48.2 [place] [id number] [place] [address] 39698- 7508 09 Oct, 2017 [place] [id number] [place] [address] 71413- 4906 Oct, Hypokalemia E87.6 ; Other specified hypotension I95.89 ; Type 2 diabetes mellitus without complication E11.9 and Weakness R53.1 [place] [address] 47623- 5971 Sep, Hypokalemia E87.6 [place] [address] 29718- 8324 Sep, Chronic kidney disease, unspecified CKD stage N18.9 [place] [address] 72128- 7143 Sep, Type 2 diabetes mellitus without complication E11.9 ; Cough R05 and Chronic kidney disease, unspecified CKD stage N18.9 [place] [id number] [place] [address] 60475- 7982 Aug, Hypokalemia E87.6 and Acute bronchitis, unspecified organism J20.9 [place] [id number] [place] [address] 57456- 9912 Aug, Gait disturbance R26.9 ; Risk for falls Z91.81 ; Acute bronchitis, unspecified organism J20.9 and Hypokalemia E87.6 [place] [id number] [place] [address] 42676- 3780 Aug, Hypokalemia E87.6 [place] [id number] [place] [address] 48654- 5184 Jul, [place] [address] 92946- 5419 Jul, Encounter for immunization Z23 [facility], [place] [id number] [place] [address] 62365- 1948 Jun, Encounter for immunization Z23 [place] [address] 68865- 4361 Apr, Type 2 diabetes mellitus without complication E11.9 [place] [address] 47765- 7470 Mar, [place] [address] 12958- 1765 Jan, [place] [address] 56526- 7822 Oct, 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 ; Weakness R53.1 and Gait disturbance R26.9 [place] [address] 03960- 6734 Oct, [place] [address] [id number] Oct, [place] [address] 31006- 9508 Oct, 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 ; 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 and Typical atrial flutter I48.3 [place] [id number] [place] [address] 92044- 7690 03 Oct, 2016 Hx of atrioventricular node ablation Z98.890 ; 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 and Type 2 diabetes mellitus with hypoglycemia without coma, without long-term current use of insulin E11.649 [place] [id number] [place] [address] 51148- 4635 Sep, Chronic gout, unspecified cause, unspecified site M1A.9XX0 [place] [address] 12819- 1452 Sep, Type 2 diabetes mellitus without complication E11.9 [place] [address] [address] 6049 Sep, Persistent atrial fibrillation I48.1 ; 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 and Non-ischemic cardiomyopathy I42.9 [place] [address] [address]- 2657 Sep, Persistent atrial fibrillation I48.1 ; 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 and Non-ischemic cardiomyopathy I42.9 [place] [address] [address]- 4970 Aug, 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 [place] [id number] [place] [address] 66825- 5954 Jul, Type 2 diabetes mellitus without complication E11.9 [place] [id number] [place] [address] 36211- 3732 Jul, Coronary artery disease involving win[place] coronary artery of win[place] heart without angina pectoris I25.10 ; Typical atrial flutter I48.3 ; 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 ; Acute on chronic systolic (congestive) heart failure I50.23 ; Dilated cardiomyopathy I42.0 and Status post internal cardiac defibrillator procedure Z95.810 [place] [address] [address]- 1523 May, Coronary artery disease involving [place] coronary artery of win[place] heart without angina pectoris I25.10 ; Dilated cardiomyopathy I42.0 and Typical atrial flutter I48.3 [place] [address] [address]- 4964 Apr, [place] [id number] [place] [address] 06038- 4996 Apr, Coronary artery disease involving win[place] coronary artery of win[place] heart without angina pectoris I25.10 ; Type 2 diabetes mellitus without complication E11.9 and 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 [facility], [place] [address] [facility] [id number] [address] 9979 Apr, [facility], [place] [address] [address]- 5702 Apr, [facility], [place] [address] [address]- 2467 Apr, Dilated cardiomyopathy I42.0 ; Coronary artery disease involving win[place] coronary artery of win[place] heart without angina pectoris I25.10 ; Typical atrial flutter I48.3 and Automatic implantable cardioverter- defibrillator in situ Z95.810 [facility], [place] [address] [address]- 8987 Mar, Chronic gout, unspecified cause, unspecified site M1A.9XX0 [facility], [place] [address] [address]- 6627 Mar, [facility], [place] [address] [address]- 4568 Jan, [facility], [place] [address] [address]- 4405 Jan, Left arm swelling M79.89 ; Diabetes mellitus E11.9 and CAD ( coronary artery disease) I25.10 [facility], [place] [id number] [address]- 8020 Jan, Essential hypertension I10 ; 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 ; Type 2 diabetes mellitus without complication E11.9 and Coronary artery disease involving [place] coronary artery of [place] heart without angina pectoris I25.10 [facility], [place] [id number] [address]- 9503 Jan, [facility], [place] [address] [address]- 3499 Jan, [facility], [place] [id number] [address]- 2584 Jan, [facility], [place] [address] [address]- 7906 December, [facility], [place] [id number] [place] [address] 43110- 5252 December, [facility], [place] [id number] [place] [address] 31418- 0361 December, Type 2 diabetes mellitus with complication, without long- term current use of insulin E11.8 ; Hyperlipidemia, unspecified hyperlipidemia type E78.5 and Neuropathy G62.9 [place] [id number] [place] [address] 75124- 2283 Dec, [place] [id number] [place] [address] 74796- 8491 Oct, [place] [id number] [place] [address] 79264- 2070 Oct, Dilated cardiomyopathy I42.0 ; CAD (coronary artery disease ) I25.10 ; Typical atrial flutter I48.3 and Diabetes mellitus type II, controlled E11.9 [place] [id number] [place] [address] 18787- 6652 Aug, Diabetes mellitus E11.9 and History of atrial flutter Z86.79 [place] [id number] [place] [address] 70482- 0352 May, [place] [id number] [place] [address] 28775- 9713 May, Hyperkalemia 276.7 and Atrial flutter 427.32 [place] [id number] [place] [address] 62195- 4915 May, [place] [id number] [place] [address] 57020- 3944 May, [place] [id number] [place] [address] 25405- 4094 May, [place] [id number] [place] [address] 32159- 5007 Apr, [facility], [place] [address] [address]- 2936 Apr, A-fib 427.31 ; Chronic ischemic heart disease, 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 ; Ischemic cardiomyopathy 414.8 ; Chronic combined systolic and diastolic heart failure 428.42 and Diabetes with hyperosmolarity, type II or unspecified type, uncontrolled 250.22 [facility], [place] [id number] [place] [address] 73803- 3366 Apr, [facility], [place] [id number] [address]- 8074 Apr, [facility], [place] [id number] [place] [address] 12960- 2950 Apr, [facility], [place] [id number] [place] [address] 75980- 8167 Mar, CAD (coronary artery disease) 414.00 ; Diabetes mellitus, type 2 250.00 and HTN (hypertension), benign 401.1 [facility], [place] [address] [address]- 4692 Mar, Diabetes mellitus, type II 250.00 and CAD (coronary artery disease) 414.00 [facility], [place] [address] [address]- 5341 Mar, [facility], [place] [address] [address]- 8494 Mar, [facility], [place] [address] [address]- 6901 Jan, [facility], [place] [address] [address]- 0802 December, [facility], [place] [address] [address]- 9305 December, [facility], [place] [address] [address]- 6120 Dec, [facility] [place] [facility] [address] [id number] [place] [address]- 4533 Dec, [facility] [place] [facility] [address] [id number] [place] [address]- 9511 Oct, [facility] [place] [facility] [address] [id number] [place] [address]- 7508 Oct, [facility] [place] [facility] [address] [id number] [place] [address]- 7652 Sep, [facility] [place] [facility] [address] [id number] [place] [address]- 9116 Sep, [facility] [place] [facility] [address] [id number] [place] [address]- 4946 Sep, [facility] [place] [facility] [address] [id number] [place] [address]- 0068 Sep, [facility] [place] [facility] [address] [id number] [place] [address]- 6592 Aug, [facility] [place] [facility] [address] [id number] [place] [address]- 0221 Aug, [facility] [place] [facility] [address] [id number] [place] [address]- 0264 Mar, [facility] [place] [facility] [address] [id number] [place] [address]- 5077 Mar, [facility] [place] [facility] [address] [id number] [place] [address]- 9150 Mar, [facility] [place] [facility] [address] [id number] [place] [address]- 5274 Mar, [facility] [place] [facility] [address] [id number] [place] [address]- 5668 Mar, [facility] [place] [facility] [address] [id number] [place] [address]- 6616 Mar, [facility] [place] [facility] [address] [id number] [place] [address]- 8233 Mar, [facility] [place] [facility] [address] [id number] [place] 8166 Dec, [facility] [place] [facility] [address] [id number] [place] [address]- 6190 Dec, [facility] [place] [facility] [address] [id number] [place] [address]- 6150 Dec, [facility] [place] [facility] [address] [id number] [place] [address]- 4251 Dec, [facility] [place] [facility] [address] [id number] [place] [address]- 5075 Oct, [facility] [place] [facility] [address] [id number] [place] [address]- 8615 Oct, [facility] [place] [facility] [address] [id number] [place] [address]- 1767 May, [facility] [place] [facility] [address] [id number] [place] [address]- 0504 Apr, [facility] [place] [facility] [address] [id number] [place] [address]- 8239 Apr, [facility] [place] [facility] [address] [id number] [place] [address]- 3153 December, [facility] [place] [facility] [address] [id number] [place] [address]- 4163 Dec, [facility] [place] [facility] [address] [id number] [place] [address]- 2673 Sep, [facility] [place] [facility] [address] [id number] [place] [address]- 0629 Sep, [facility] [place] [facility] [address] [id number] [place] [address]- 7348 Sep, [facility] [place] [facility] [address] [id number] [place] [address]- 9089 Jul, [facility] [place] [facility] [address] [id number] [place] [address]- 2546 05 May, 2012 [facility] [address] [id number] [place] [address]- 8834 05 May, 2012 [facility] [place] [facility] [address] [id number] [place] [address]- 2576 04 May, 2012 [facility] [address] [id number] [place] [address]- 0548 27 Apr, 2012 [facility] [address] [id number] [place] [address]- 7685 15 Apr, 2012 [facility] [address] [id number] [place] [address]- 4873 14 Apr, 2012 [facility] [address] [id number] [place] [address]- 1728 13 Mar, 2012 [facility] [address] [id number] [place] [address]- 4498 Mar, [facility] [address] [id number] [place] [address]- 6895 Dec, [facility] [address] [id number] [place] [address]- 4791 Oct, [facility] [address] [id number] [place] [address]- 3502 Oct, [facility] [address] [id number] [place] [address]- 2435 Oct, [facility] [address] [id number] [place] [address]- 1750 08 Nov, 2011 [facility] [place] [facility] [address] [id number] [place] [address]- 6086 06 Nov, 2011 [facility] [address] [id number] [place] [address]- 9386 Aug, [facility] [address] [id number] [place] [address]- 7147 17 Sep, 2010 [facility] [place] [address] [facility] [id number] [address]- 8342 13 May, 2010 [facility] [place] [id number] [address]- 5689 17 Jul, 2009 [facility] [place] [address] [facility] [id number] [address]- 7472 16 Jul, 2009 [facility] [place] [id number] [address]- 6841 10 May, 2009 IMMUNIZATIONS No Known Immunizations SOCIAL HISTORY Never Assessed REASON FOR VISIT Physical Therapy Order PLAN OF CARE VITAL SIGNS MEDICATIONS [...] influenza A, Sepsis, Pneumonia, Elevated liver enzymes -[facility] 10/21/16 Hospitalization History fatigue, observation 11/17
--- OUTSIDE RECORDS SUMMARY | 2018-10-14 15:16 | XMS REPORT ---
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 Active [id number] Problem Hyperbilirubinemia E80.6 Active 67487481 Problem Non-ischemic cardiomyopathy I42.9 Apr, Active 00555905 Problem S/P CABG (coronary artery bypass graft) Z95.1 Active 733331993 Problem Risk for falls Z91.81 Active 553580310 Problem Chronic kidney disease, unspecified CKD stage N18.9 Active 489487319 Problem Increased ammonia level R79.89 Active 897033956 Problem Chronic atrial fibrillation I48.2 Active 026660313 Problem Essential hypertension I10 Active 73031974 Problem Atypical atrial flutter I48.4 Apr, Active 0082215 Problem Coronary 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.10 Active 6599172278711 Problem Hyperammonemia E72.20 Active 6467562 Problem Dilated cardiomyopathy I42.0 Active 080331887 Problem Typical atrial flutter I48.3 Active 733848379 Problem Nonsustained ventricular tachycardia I47.2 Active 428039702 Problem Hypokalemia E87.6 Active 04262723 Problem Acute on chronic systolic (congestive) heart failure I50.23 Active 830309659 Problem Hx of renal calculi Z87.442 Active 460459819 Problem Chronic gout, unspecified cause, unspecified site M1A.9XX0 Active 94454951 Problem Persistent atrial fibrillation I48.1 Active 957208954 ALLERGIES No Information ENCOUNTERS Encounter Location Date Diagnosis [facility] [address] [place] [address] [id number] [place] [address] 95875- 6243 December, [facility] [id number] [place] [address] 43732- 0093 December, [facility] [id number] [place] [address] 87608- 5714 Dec, Hyperammonemia E72.20 [facility] [id number] [place] [address] 04615- 3508 Oct, Increased ammonia level R79.89 ; Pleural effusion, left J90 ; Dilated cardiomyopathy I42.0 ; Weakness R53.1 ; Gait disturbance R26.9 and Diabetes mellitus E11.9 [facility] [id number] [place] [address] 54433- 2805 Oct, [facility] [id number] [place] [address] 13639- 5256 Oct, [facility] [id number] [place] [address] 73021- 8549 Oct, [facility] [id number] [place] [address] 56894- 6475 Oct, Weakness R53.1 and Gait disturbance R26.9 [facility] [id number] [place] [address] 26169- 0510 Oct, Weakness R53.1 ; 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 ; Type 2 diabetes mellitus without complication E11.9 ; Hypokalemia E87.6 ; Chronic atrial fibrillation I48.2 and Chronic kidney disease, unspecified CKD stage N18.9 [facility] [id number] [place] [address] 78201- 4586 Oct, Dilated cardiomyopathy I42.0 ; 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 ; Type 2 diabetes mellitus without complication E11.9 and Chronic atrial fibrillation I48.2 [facility] [facility] [address] 80497- 7221 09 Oct, 2017 [place] [address] [place] [id number]- 8499 05 Oct, 2017 Hypokalemia E87.6 ; Other specified hypotension I95.89 ; Type 2 diabetes mellitus without complication E11.9 and Weakness R53.1 [facility] [address] 32558- 6949 Sep, Hypokalemia E87.6 [facility] [address] 53327- 3417 Sep, Chronic kidney disease, unspecified CKD stage N18.9 [facility] [address] 22401- 7347 Sep, Type 2 diabetes mellitus without complication E11.9 ; Cough R05 and Chronic kidney disease, unspecified CKD stage N18.9 [facility] [id number] [place] [address] 03992- 7265 Aug, Hypokalemia E87.6 and Acute bronchitis, unspecified organism J20.9 [facility] [id number] [place] [address] 01095- 3885 Aug, Gait disturbance R26.9 ; Risk for falls Z91.81 ; Acute bronchitis, unspecified organism J20.9 and Hypokalemia E87.6 [facility] [id number] [place] [address] 09129- 8410 Aug, Hypokalemia E87.6 [place] [address] 35747- 9377 Jul, [facility] [address] 68257- 6513 Jul, Encounter for immunization Z23 [facility] [address] 24074- 4335 Jun, Encounter for immunization Z23 [facility] [id number] [place] [address] 22103- 9923 Apr, Type 2 diabetes mellitus without complication E11.9 [place] [id number] [place] [address] 09611- 7560 Mar, [place] [address] 07645- 8462 Jan, [place] [address] 00130- 7810 Oct, 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 ; Weakness R53.1 and Gait disturbance R26.9 [place] [id number] [place] [address] 79723- 9064 Oct, [place] [address] [id number] Oct, [facility] [id number] [place] [address] 89807- 1857 Oct, 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 ; 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 and Typical atrial flutter I48.3 [facility] [id number] [place] [address] 67581- 6373 03 Oct, 2016 Presence of combination internal cardiac defibrillator (ICD ) and pacemaker Z95.810 ; Hx of atrioventricular node ablation Z98.890 and Type 2 diabetes mellitus with hypoglycemia without coma, without long-term current use of insulin E11.649 [place] [id number] [place] [address] 02351- 4709 Sep, Chronic gout, unspecified cause, unspecified site M1A.9XX0 [facility] [address] [place] [address] 59967- 6794 Sep, Type 2 diabetes mellitus without complication E11.9 [facility] [facility] [id number] [place] [address] 64724- 7605 Sep, Persistent atrial fibrillation I48.1 ; 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 and Non-ischemic cardiomyopathy I42.9 [facility] [address] [place] [address] 12972- 6091 Sep, Persistent atrial fibrillation I48.1 ; 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 and Non-ischemic cardiomyopathy I42.9 [place] [id number] [place] [address] 41908- 0601 Aug, 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 [place] [facility] [id number] [place] [address] 40863- 0063 Jul, Type 2 diabetes mellitus without complication E11.9 [place] [id number] [place] [address] 63885- 3352 Jul, Coronary 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.10 ; Typical atrial flutter I48.3 ; 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 ; Acute on chronic systolic (congestive) heart failure I50.23 ; Dilated cardiomyopathy I42.0 and Status post internal cardiac defibrillator procedure Z95.810 [place] [address] [place] [address] 03099- 7856 May, Coronary 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.10 ; Dilated cardiomyopathy I42.0 and Typical atrial flutter I48.3 [place] [address] [place] [address] 59973- 1642 Apr, [place] [address] [place] [address] 25281- 4089 Apr, Coronary 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.10 ; Type 2 diabetes mellitus without complication E11.9 and 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 [place] [id number] [place] [address] 84365- 9515 Apr, [facility] [address] [address]- 2500 Apr, [facility] [address] [address]- 0000 Apr, Dilated cardiomyopathy I42.0 ; Coronary 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.10 ; Typical atrial flutter I48.3 and Automatic implantable cardioverter- defibrillator in situ Z95.810 [facility] [address] [address]- 2395 Mar, Chronic gout, unspecified cause, unspecified site M1A.9XX0 [facility] [id number] [place] [address] 99684- 2654 Mar, [facility] [id number] [address]- 4477 Jan, [facility] [id number] [place] [address] 24053- 1377 Jan, Left arm swelling M79.89 ; Diabetes mellitus E11.9 and CAD ( coronary artery disease) I25.10 [facility] [address] [place] [address]- 6760 Jan, Essential hypertension I10 ; 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 ; Type 2 diabetes mellitus without complication E11.9 and Coronary 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.10 [facility] [address] [place] [address]- 2449 Jan, [facility] [address] [place] [address]- 4566 Jan, [facility] [address] [place] [address]- 7633 Jan, [facility] [address] [place] [address]- 3206 December, [facility] [id number] [place] [address] 75868- 6558 December, [place] [id number] [place] [address] 76195- 9165 December, Type 2 diabetes mellitus with complication, without long- term current use of insulin E11.8 ; Hyperlipidemia, unspecified hyperlipidemia type E78.5 and Neuropathy G62.9 [place] [address] 07610- 7738 Dec, [place] [id number] [place] [address] 01600- 4107 Oct, [place] [address] 32050- 2588 Oct, Dilated cardiomyopathy I42.0 ; CAD (coronary artery disease ) I25.10 ; Typical atrial flutter I48.3 and Diabetes mellitus type II, controlled E11.9 [place] [id number] [place] [address] 40495- 1169 Aug, Diabetes mellitus E11.9 and History of atrial flutter Z86.79 [place] [id number] [place] [address] 78211- 2485 May, [place] [id number] [place] [address] 87310- 9642 May, Hyperkalemia 276.7 and Atrial flutter 427.32 [place] [id number] [place] [address] 33726- 1890 May, [place] [id number] [place] [address] 42427- 6153 May, [place] [id number] [place] [address] 96267- 2854 May, [place] [id number] [place] [address] 85265- 3944 Apr, [place] [id number] [place] [address] 05725- 8142 Apr, A-fib 427.31 ; Chronic ischemic heart disease, 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 ; Ischemic cardiomyopathy 414.8 ; Chronic combined systolic and diastolic heart failure 428.42 and Diabetes with hyperosmolarity, type II or unspecified type, uncontrolled 250.22 [facility] [address], [place] [address]- 0602 Apr, [facility] [id number] [place] [address] 53934- 3623 Apr, [facility] [id number] [place] [address] 71394- 6844 Apr, [facility] [id number] [place] [address] 95106- 9793 Mar, CAD (coronary artery disease) 414.00 ; Diabetes mellitus, type 2 250.00 and HTN (hypertension), benign 401.1 [facility] [id number] [place] [address] 67042- 3707 Mar, Diabetes mellitus, type II 250.00 and CAD (coronary artery disease) 414.00 [facility] [id number] [place] [address] 71787- 1992 Mar, [facility] [id number] [place] [address] 50255- 9997 Mar, [facility] [address] [place] [address]- 5540 Jan, [facility] [address] [place] [address]- 5738 December, [facility] [id number] [place] [address] 85769- 7776 December, [facility] [id number] [place] [address] 29855- 3278 Dec, [facility] [address] [place] [address]- 0376 Dec, [facility] [place] [facility] [address] [id number] [place] [address]- 7012 Oct, [facility] [place] [facility] [address] [id number] [place] [address]- 5020 Oct, [facility] [place] [facility] [address] [id number] [place] [address]- 7476 Sep, [facility] [place] [facility] [address] [id number] [place] [address]- 0616 Sep, [facility] [place] [facility] [address] [id number] [place] [address]- 4959 Sep, [facility] [place] [facility] [address] [id number] [place] [address]- 9979 Sep, [facility] [place] [facility] [address] [id number] [place] [address]- 6954 Aug, [facility] [place] [facility] [address] [id number] [place] [address]- 3796 Aug, [facility] [place] [facility] [address] [id number] [place] [address]- 5840 Mar, [facility] [place] [facility] [address] [id number] [place] [address]- 5320 Mar, [facility] [place] [facility] [address] [id number] [place] [address]- 9529 Mar, [facility] [place] [facility] [address] [id number] [place] [address]- 1966 Mar, [facility] [place] [facility] [address] [id number] [place] [address]- 2433 Mar, [facility] [place] [facility] [address] [id number] [place] [address]- 9589 Mar, [facility] [place] [facility] [address] [id number] [place] [address]- 5358 Mar, [facility] [place] [facility] [address] [id number] [place] [address]- 7064 Dec, [facility] [place] [facility] [address] [id number] [place] 0956 Dec, [facility] [place] [facility] [address] [id number] [place] [address]- 5371 Dec, [facility] [place] [facility] [address] [id number] [place] [address]- 2556 Dec, [facility] [place] [facility] [address] [id number] [place] [address]- 8780 Oct, [facility] [place] [facility] [address] [id number] [place] [address]- 5385 Oct, [facility] [place] [facility] [address] [id number] [place] 5698 May, [facility] [place] [facility] [address] [id number] [place] [address]- 2002 Apr, [facility] [place] [facility] [address] [id number] [place] [address]- 5792 Apr, [facility] [place] [facility] [address] [id number] [place] [address]- 7033 December, [facility] [place] [facility] [address] [id number] [place] [address]- 4796 Dec, [facility] [place] [facility] [address] [id number] [place] [address]- 6887 Sep, [facility] [place] [facility] [address] [id number] [place] [address]- 9079 Sep, [facility] [place] [facility] [address] [id number] [place] [address]- 2298 Sep, [facility] [place] [facility] [address] [id number] [place] [address]- 7984 Jul, [facility] [place] [facility] [address] [id number] [place] [address]- 0779 May, [facility] [place] [facility] [address] [id number] [place] [address]- 5756 05 May, 2012 [facility] [address] [id number] [place] [address]- 5088 04 May, 2012 [facility] [address] [id number] [place] [address]- 0406 27 Apr, 2012 [facility] [address] [id number] [place] [address]- 4236 15 Apr, 2012 [facility] [address] [id number] [place] [address]- 8267 14 Apr, 2012 [facility] [address] [id number] [place] [address]- 7387 Mar, [facility] [address] [id number] [place] [address]- 5455 Mar, [facility] [address] [id number] [place] [address]- 7610 Dec, [facility] [address] [id number] [place] [address]- 4914 Oct, [facility] [address] [id number] [place] [address]- 2441 Oct, [facility] [address] [id number] [place] [address]- 4867 Oct, [facility] [address] [id number] [place] [address]- 8731 Oct, [facility] [address] [id number] [place] [address]- 0195 Oct, [facility] [address] [id number] [place] [address]- 9092 Aug, [facility] [address] [id number] [place] [address]- 2546 17 Sep, 2010 [facility] [address] [id number] [place] 6506 13 May, 2010 [facility] [address] [facility] [id number] [place] [address]- 1237 17 Jul, 2009 [facility] [address] [facility] [id number] [place] [address]- 6331 16 Jul, 2009 [facility] [address] [facility] [id number] [place] [address]- 0286 10 May, 2009 IMMUNIZATIONS No Known Immunizations SOCIAL HISTORY Never Assessed REASON FOR VISIT Future order PLAN OF CARE VITAL SIGNS MEDICATIONS [...] influenza A, Sepsis, Pneumonia, Elevated liver enzymes -[facility] 10/21/16 Hospitalization History fatigue, observation 11/17
--- OUTSIDE RECORDS SUMMARY | 2018-10-14 15:17 | XMS REPORT ---
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 Active [id number] Problem Hyperbilirubinemia E80.6 Active 56273379 Problem Non-ischemic cardiomyopathy I42.9 Apr, Active 64877580 Problem S/P CABG (coronary artery bypass graft) Z95.1 Active 349434601 Problem Risk for falls Z91.81 Active 982542819 Problem Chronic kidney disease, unspecified CKD stage N18.9 Active 935465707 Problem Increased ammonia level R79.89 Active 172733299 Problem Chronic atrial fibrillation I48.2 Active 688010879 Problem Essential hypertension I10 Active 60458351 Problem Atypical atrial flutter I48.4 Apr, Active 7195842 Problem Coronary artery disease involving [place] coronary artery of [place] heart without angina pectoris I25.10 Active 1918035197013 Problem Hyperammonemia E72.20 Active 4073479 Problem Dilated cardiomyopathy I42.0 Active 204503826 Problem Typical atrial flutter I48.3 Active 740844982 Problem Nonsustained ventricular tachycardia I47.2 Active 506753362 Problem Hypokalemia E87.6 Active 32124955 Problem Acute on chronic systolic (congestive) heart failure I50.23 Active 359615040 Problem Hx of renal calculi Z87.442 Active 864004809 Problem Chronic gout, unspecified cause, unspecified site M1A.9XX0 Active 27696314 Problem Persistent atrial fibrillation I48.1 Active 634862135 ALLERGIES No Information ENCOUNTERS Encounter Location Date Diagnosis [place] [id number] [place] [address] 73339- 5883 December, [place] [id number] [place] [address] 02043- 4814 December, [place] [id number] [place] [address] 49375- 4262 Dec, Hyperammonemia E72.20 [place] [id number] [place] [address] 90291- 1513 Oct, Increased ammonia level R79.89 ; Pleural effusion, left J90 ; Dilated cardiomyopathy I42.0 ; Weakness R53.1 ; Gait disturbance R26.9 and Diabetes mellitus E11.9 [place] [id number] [place] [address] 19900- 3846 Oct, [place] [id number] [place] [address] 01873- 7217 Oct, [place] [id number] [place] [address] 66882- 6003 Oct, [place] [id number] [place] [address] 40651- 4881 Oct, Weakness R53.1 and Gait disturbance R26.9 [place] [id number] [place] [address] 58698- 9630 Oct, Weakness R53.1 ; 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 ; Type 2 diabetes mellitus without complication E11.9 ; Chronic kidney disease, unspecified CKD stage N18.9 ; Chronic atrial fibrillation I48.2 and Hypokalemia E87.6 [place] [id number] [place] [address] 88854- 7336 Oct, Dilated cardiomyopathy I42.0 ; 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 ; Type 2 diabetes mellitus without complication E11.9 and Chronic atrial fibrillation I48.2 [place] [address] 17436- 1800 09 Oct, 2017 [place] [address] 10971- 7033 05 Oct, 2017 Hypokalemia E87.6 ; Other specified hypotension I95.89 ; Type 2 diabetes mellitus without complication E11.9 and Weakness R53.1 [place] [address] 89743- 8086 Sep, Hypokalemia E87.6 [place] [address] 70962- 4642 Sep, Chronic kidney disease, unspecified CKD stage N18.9 [place] [address] 04287- 4517 Sep, Type 2 diabetes mellitus without complication E11.9 ; Cough R05 and Chronic kidney disease, unspecified CKD stage N18.9 [place] [address] 27241- 4367 Aug, Hypokalemia E87.6 and Acute bronchitis, unspecified organism J20.9 [place] [address] 21414- 0860 Aug, Gait disturbance R26.9 ; Risk for falls Z91.81 ; Acute bronchitis, unspecified organism J20.9 and Hypokalemia E87.6 [place] [id number] [place] [address] 91694- 6646 Aug, Hypokalemia E87.6 [place] [address] 05101- 9023 Jul, [place] [address] 33449- 5989 Jul, Encounter for immunization Z23 [place] [address] 38560- 6027 Jun, Encounter for immunization Z23 [place] [id number] [place] [address] 34968- 2871 Apr, Type 2 diabetes mellitus without complication E11.9 [place] [id number] [place] [address] 47986- 4371 Mar, [place] [id number] [place] [address] 31726- 2717 Jan, [place] [id number] [place] [address] 41473- 8987 Oct, 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 ; Weakness R53.1 and Gait disturbance R26.9 [place] [address] [place] [address] 60372- 9908 Oct, [place] [id number] [place] [address] [id number] Oct, [place] [id number] [place] [address] 29511- 8878 Oct, 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 ; 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 and Typical atrial flutter I48.3 [place] [address] [place] [address] 25981- 2516 03 Oct, 2016 Hx of atrioventricular node ablation Z98.890 ; 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 and Type 2 diabetes mellitus with hypoglycemia without coma, without long-term current use of insulin E11.649 [place] [address] [place] [address] 04373- 6657 Sep, Chronic gout, unspecified cause, unspecified site M1A.9XX0 [place] [address] [place] [address] 05546- 5834 Sep, Type 2 diabetes mellitus without complication E11.9 [place] [id number] [address]- 8147 Sep, Persistent atrial fibrillation I48.1 ; 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 and Non-ischemic cardiomyopathy I42.9 [place] [address] [place] [address] 50018- 7937 Sep, Persistent atrial fibrillation I48.1 ; 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3 ; 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 ; Acute on chronic systolic (congestive) heart failure I50.23 ; Dilated cardiomyopathy I42.0 and Status post internal cardiac defibrillator procedure Z95.810 [place] [address] [place] [address] 15889- 1181 May, Coronary artery disease involving [place] coronary artery of [place] heart without angina pectoris I25.10 ; Dilated cardiomyopathy I42.0 and Typical atrial flutter I48.3 [place] [address] [place] [address] 24709- 3832 Apr, [place] [id number] [place] [address] 37621- 3323 Apr, Coronary artery disease involving [place] coronary artery of [place] heart without angina pectoris I25.10 ; Type 2 diabetes mellitus without complication E11.9 and 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 [place] [id number] [place] [address] 17351- 1704 Apr, [facility] [address] [address]- 0294 Apr, [facility] [address] [place] [address] 09360- 8502 Apr, Dilated cardiomyopathy I42.0 ; Coronary artery disease involving [place] coronary artery of [place] heart without angina pectoris I25.10 ; Typical atrial flutter I48.3 and Automatic implantable cardioverter- defibrillator in situ Z95.810 [facility] [address] [address]- 1909 Mar, Chronic gout, unspecified cause, unspecified site M1A.9XX0 [facility] [address] [place] [address] 68752- 5222 Mar, [facility] [id number] [place] [address] 12427- 6461 Jan, [facility] [id number] [place] [address] 89861- 4358 Jan, Left arm swelling M79.89 ; Diabetes mellitus E11.9 and CAD ( coronary artery disease) I25.10 [facility] [address] [address]- 4305 Jan, Essential hypertension I10 ; 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 ; Type 2 diabetes mellitus without complication E11.9 and Coronary artery disease involving [place] coronary artery of [place] heart without angina pectoris I25.10 [facility] [address] [address]- 6023 Jan, [facility] [address] [address]- 1054 Jan, [facility] [address] [address]- 8799 Jan, [facility] [address] [address]- 9501 December, [place] [id number] [place] [address] 38591- 7754 December, [facility] [id number] [place] [address] 65295- 0370 December, Type 2 diabetes mellitus with complication, without long- term current use of insulin E11.8 ; Hyperlipidemia, unspecified hyperlipidemia type E78.5 and Neuropathy G62.9 [place] [address] 99648- 7609 Dec, [place] [id number] [place] [address] 65892- 8414 Oct, [place] [id number] [place] [address] 48473- 5930 Oct, Dilated cardiomyopathy I42.0 ; CAD (coronary artery disease ) I25.10 ; Typical atrial flutter I48.3 and Diabetes mellitus type II, controlled E11.9 [place] [id number] [place] [address] 79870- 3321 Aug, Diabetes mellitus E11.9 and History of atrial flutter Z86.79 [place] [id number] [place] [address] 89994- 1208 May, [place] [id number] [place] [address] 37556- 6369 May, Hyperkalemia 276.7 and Atrial flutter 427.32 [place] [id number] [place] [address] 78895- 1201 May, [place] [id number] [place] [address] 93332- 7450 May, [place] [id number] [place] [address] 00150- 7888 May, [place] [id number] [place] [address] 24018- 0124 Apr, [place] [address] [place] [address]- 0912 Apr, A-fib 427.31 ; Chronic ischemic heart disease, 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 ; Ischemic cardiomyopathy 414.8 ; Chronic combined systolic and diastolic heart failure 428.42 and Diabetes with hyperosmolarity, type II or unspecified type, uncontrolled 250.22 [facility] [id number] [place] [address] 96545- 4233 Apr, [facility] [address] 25009- 5092 Apr, [facility] [id number] [place] [address] 04541- 8435 Apr, [facility] [id number] [place] [address] 81667- 7560 Mar, CAD (coronary artery disease) 414.00 ; Diabetes mellitus, type 2 250.00 and HTN (hypertension), benign 401.1 [facility] [id number] [place] [address] 92784- 0922 Mar, Diabetes mellitus, type II 250.00 and CAD (coronary artery disease) 414.00 [facility] [id number] [place] [address] 18711- 6559 Mar, [facility] [id number] [place] [address] 01174- 4660 Mar, [facility] [id number] [place] [address] 54520- 8027 Jan, [facility] [id number] [place] [address] 92018- 3562 December, [facility] [id number] [place] [address] 37936- 3191 December, [facility] [id number] [place] [address] 12831- 2978 Dec, [facility] [id number] [place] [address] 59521- 8812 Dec, [facility] [place] [facility] [address] [id number] [place] [address]- 2816 Oct, [facility] [place] [facility] [address] [id number] [place] [address]- 7759 Oct, [facility] [place] [facility] [address] [id number] [place] [address]- 7171 Sep, [facility] [place] [facility] [address] [id number] [place] [address]- 0819 Sep, [facility] [place] [facility] [address] [id number] [place] [address]- 8021 Sep, [facility] [place] [facility] [address] [id number] [place] [address]- 9397 Sep, [facility] [place] [facility] [address] [id number] [place] [address]- 5808 Aug, [facility] [place] [facility] [address] [id number] [place] [address]- 3111 Aug, [facility] [place] [facility] [address] [id number] [place] [address]- 4822 Mar, [facility] [place] [facility] [address] [id number] [place] [address]- 3392 Mar, [facility] [place] [facility] [address] [id number] [place] [address]- 8445 Mar, [facility] [place] [facility] [address] [id number] [address]- 6784 Mar, [facility] [place] [facility] [address] [id number] [place] [address]- 5881 Mar, [facility] [place] [facility] [address] [id number] [place] [address]- 3461 Mar, [facility] [place] [facility] [address] [id number] [place] [address]- 5295 Mar, [facility] [place] [facility] [address] [id number] [address]- 6233 Dec, [facility] [address] [id number] [place] 2602 Dec, [facility] [place] [facility] [address] [id number] [place] [address]- 6047 Dec, [facility] [place] [facility] [address] [id number] [place] [address]- 0858 Dec, [facility] [place] [facility] [address] [id number] [place] [address]- 1684 Oct, [facility] [place] [facility] [address] [id number] [place] [address]- 3539 Oct, [facility] [place] [facility] [address] [id number] [place] [address]- 4922 May, [facility] [address] [id number] [place] [address]- 8966 Apr, [facility] [place] [facility] [address] [id number] [place] [address]- 8590 Apr, [facility] [address] [id number] [place] [address]- 2891 December, [facility] [address] [id number] [place] [address]- 8405 Dec, [facility] [address] [id number] [place] [address]- 0205 Sep, [facility] [place] [facility] [address] [id number] [place] [address]- 7541 Sep, [facility] [place] [facility] [address] [id number] [place] [address]- 7973 Sep, [facility] [place] [facility] [address] [id number] [place] [address]- 2921 Jul, [facility] [place] [facility] [address] [id number] [place] [address]- 4413 May, [facility] [place] [facility] [address] [id number] [place] [address]- 4687 05 May, 2012 [facility] [place] [facility] [address] [id number] [place] [address]- 2433 04 May, 2012 [facility] [place] [facility] [address] [id number] [place] [address]- 3368 Apr, [facility] [place] [facility] [address] [id number] [place] [address]- 6133 15 Apr, 2012 [facility] [place] [facility] [address] [id number] [place] [address]- 9995 14 Apr, 2012 [facility] [place] [facility] [address] [id number] [place] [address]- 4469 Mar, [facility] [place] [facility] [address] [id number] [place] [address]- 0082 Mar, [facility] [place] [facility] [address] [id number] [place] [address]- 8254 Dec, [facility] [place] [facility] [address] [id number] [place] [address]- 6427 Oct, [facility] [place] [facility] [address] [id number] [place] [address]- 0445 Oct, [facility] [place] [facility] [address] [id number] [place] [address]- 5482 Oct, [facility] [place] [facility] [address] [id number] [place] [address]- 6544 Oct, [facility] [place] [facility] [address] [id number] [place] [address]- 7021 Oct, [facility] [place] [facility] [address] [id number] [place] [address]- 5145 Aug, [facility] [place] [facility] [address] [id number] [place] [address]- 6382 Sep, [facility] [place] [facility] [address] [id number] [place] [address]- 0783 13 May, 2010 [facility] [address] [facility] [id number] [place] [address]- 2473 17 Jul, 2009 [facility] [address] [facility] [id number] [place] [address]- 7312 16 Jul, 2009 [facility] [address] [facility] [id number] [place] [address]- 0414 10 May, 2009 IMMUNIZATIONS No Known Immunizations SOCIAL HISTORY Never Assessed REASON FOR VISIT Lab Request PLAN OF CARE VITAL SIGNS MEDICATIONS [...] Sepsis, Pneumonia, Elevated liver enzymes -[facility] 10/21/16 Hospitalization History fatigue, observation 11/17
--- OUTSIDE RECORDS SUMMARY | 2018-10-14 15:17 | XMS REPORT ---
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 Active 458540134716147 Problem Hyperbilirubinemia E80.6 Active 70973558 Problem Non-ischemic cardiomyopathy I42.9 Apr, Active 42191620 Problem S/P CABG (coronary artery bypass graft) Z95.1 Active 187224407 Problem Risk for falls Z91.81 Active 253736153 Problem Chronic kidney disease, unspecified CKD stage N18.9 Active 607346884 Problem Increased ammonia level R79.89 Active 298169520 Problem Chronic atrial fibrillation I48.2 Active 747699458 Problem Essential hypertension I10 Active 45810051 Problem Atypical atrial flutter I48.4 Apr, Active 0336549 Problem 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 Active 9649046829548 Problem Hyperammonemia E72.20 Active 8953641 Problem Dilated cardiomyopathy I42.0 Active 250799810 Problem Typical atrial flutter I48.3 Active 018793721 Problem Nonsustained ventricular tachycardia I47.2 Active 464389512 Problem Hypokalemia E87.6 Active 07883269 Problem Acute on chronic systolic (congestive) heart failure I50.23 Active 124729184 Problem Hx of renal calculi Z87.442 Active 888930578 Problem Chronic gout, unspecified cause, unspecified site M1A.9XX0 Active 74653477 Problem Persistent atrial fibrillation I48.1 Active 343349945 ALLERGIES No Information ENCOUNTERS Encounter Location Date Diagnosis [place] [id number] [place] [address] 47928- 2539 December, [place] [id number] [place] [address] 52509- 4788 December, [place] [id number] [place] [address] 03468- 8785 Dec, Hyperammonemia E72.20 [place] [id number] [place] [address] 89454- 2037 Oct, Increased ammonia level R79.89 ; Pleural effusion, left J90 ; Dilated cardiomyopathy I42.0 ; Weakness R53.1 ; Gait disturbance R26.9 and Diabetes mellitus E11.9 [place] [id number] [place] [address] 08967- 8769 Oct, [place] [id number] [place] [address] 06458- 2518 Oct, [place] [id number] [place] [address] 04971- 3233 Oct, [place] [id number] [place] [address] 41213- 0555 Oct, Weakness R53.1 and Gait disturbance R26.9 [place] [id number] [place] [address] 80589- 6335 Oct, Weakness R53.1 ; 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 ; Type 2 diabetes mellitus without complication E11.9 ; Chronic kidney disease, unspecified CKD stage N18.9 ; Chronic atrial fibrillation I48.2 and Hypokalemia E87.6 [place] [id number] [place] [address] 70719- 2918 Oct, Dilated cardiomyopathy I42.0 ; 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 ; Type 2 diabetes mellitus without complication E11.9 and Chronic atrial fibrillation I48.2 [place] [address] 87065- 3087 09 Oct, 2017 [place] [address] [place] [id number]- 5539 05 Oct, 2017 Hypokalemia E87.6 ; Other specified hypotension I95.89 ; Type 2 diabetes mellitus without complication E11.9 and Weakness R53.1 [place] [address] 25686- 8734 Sep, Hypokalemia E87.6 [place] [address] 00709- 2573 Sep, Chronic kidney disease, unspecified CKD stage N18.9 [place] [address] 08924- 2401 Sep, Type 2 diabetes mellitus without complication E11.9 ; Cough R05 and Chronic kidney disease, unspecified CKD stage N18.9 [place] [id number] [place] [address] 70607- 1446 Aug, Hypokalemia E87.6 and Acute bronchitis, unspecified organism J20.9 [place] [id number] [place] [address] 29823- 5951 Aug, Gait disturbance R26.9 ; Risk for falls Z91.81 ; Acute bronchitis, unspecified organism J20.9 and Hypokalemia E87.6 [place] [id number] [place] [address] 87492- 8260 Aug, Hypokalemia E87.6 [place] [address] 20419- 8630 Jul, [place] [address] 28833- 1416 Jul, Encounter for immunization Z23 [place] [address] 48565- 4521 Jun, Encounter for immunization Z23 [place] [id number] [place] [address] 86062- 5501 Apr, Type 2 diabetes mellitus without complication E11.9 [place] [id number] [place] [address] 14048- 8241 Mar, [place] [address] 14038- 3569 Jan, [place] [address] 80492- 8172 Oct, 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 ; Weakness R53.1 and Gait disturbance R26.9 [place] [id number] [place] [address] 62055- 6470 Oct, [place] [address] [id number] Oct, [place] [id number] [place] [address] 32420- 6429 Oct, 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 ; 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 and Typical atrial flutter I48.3 [place] [id number] [place] [address] 38249- 4801 03 Oct, 2016 Hx of atrioventricular node ablation Z98.890 ; 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 and Type 2 diabetes mellitus with hypoglycemia without coma, without long-term current use of insulin E11.649 [place] [address] [place] [address] 81692- 3192 Sep, Chronic gout, unspecified cause, unspecified site M1A.9XX0 [place] [address] [place] [address] 07545- 5370 Sep, Type 2 diabetes mellitus without complication E11.9 [place] [id number] [place] [address] 61024- 2386 Sep, Persistent atrial fibrillation I48.1 ; 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 and Non-ischemic cardiomyopathy I42.9 [place] [address] [place] [address] 81022- 7671 Sep, Persistent atrial fibrillation I48.1 ; 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 and Non-ischemic cardiomyopathy I42.9 [place] [id number] [place] [address] 91761- 5008 Aug, 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 [place] [id number] [place] [address] 90371- 3269 Jul, Type 2 diabetes mellitus without complication E11.9 [place] [id number] [place] [address] 80438- 2851 Jul, 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 ; Typical atrial flutter I48.3 ; 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 ; Acute on chronic systolic (congestive) heart failure I50.23 ; Dilated cardiomyopathy I42.0 and Status post internal cardiac defibrillator procedure Z95.810 [place] [address] [place] [address] 47396- 2800 May, 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 ; Dilated cardiomyopathy I42.0 and Typical atrial flutter I48.3 [place] [address] [place] [address] 57320- 9731 Apr, [place] [id number] [place] [address] 15904- 6813 Apr, 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 ; Type 2 diabetes mellitus without complication E11.9 and 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 [place] [id number] [place] [address] 60713- 1578 Apr, [facility] [address] [address]- 3632 Apr, [facility] [id number] [address]- 9863 Apr, Dilated cardiomyopathy I42.0 ; 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 ; Typical atrial flutter I48.3 and Automatic implantable cardioverter- defibrillator in situ Z95.810 [facility] [address] [address]- 6619 Mar, Chronic gout, unspecified cause, unspecified site M1A.9XX0 [facility] [id number] [place] [address] 98653- 3253 Mar, [facility] [id number] [address]- 7565 Jan, [facility] [id number] [place] [address] 82799- 6264 Jan, Left arm swelling M79.89 ; Diabetes mellitus E11.9 and CAD ( coronary artery disease) I25.10 [facility] [address] [address]- 9723 Jan, Essential hypertension I10 ; 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 ; Type 2 diabetes mellitus without complication E11.9 and 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 [facility] [address] [place] [address]- 0442 Jan, [facility] [address] [place] [address]- 4867 Jan, [facility] [address] [place] [address]- 6687 Jan, [facility] [address] [place] [address]- 0627 December, [facility] [id number] [place] [address] 92250- 7168 December, [place] [id number] [place] [address] 90365- 9282 December, Type 2 diabetes mellitus with complication, without long- term current use of insulin E11.8 ; Hyperlipidemia, unspecified hyperlipidemia type E78.5 and Neuropathy G62.9 [place] [address] 54082- 3930 Dec, [place] [id number] [place] [address] 57564- 0943 Oct, [place] [address] 48119- 6767 Oct, Dilated cardiomyopathy I42.0 ; CAD (coronary artery disease ) I25.10 ; Typical atrial flutter I48.3 and Diabetes mellitus type II, controlled E11.9 [place] [id number] [place] [address] 07641- 7969 Aug, Diabetes mellitus E11.9 and History of atrial flutter Z86.79 [place] [id number] [place] [address] 20913- 0619 May, [place] [id number] [place] [address] 04386- 1795 May, Hyperkalemia 276.7 and Atrial flutter 427.32 [place] [id number] [place] [address] 35015- 0622 May, [place] [id number] [place] [address] 61798- 0743 May, [place] [id number] [place] [address] 20083- 2700 May, [place] [id number] [place] [address] 72249- 3703 Apr, [place] [id number] [place] [address] 45990- 0518 Apr, A-fib 427.31 ; Chronic ischemic heart disease, 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 ; Ischemic cardiomyopathy 414.8 ; Chronic combined systolic and diastolic heart failure 428.42 and Diabetes with hyperosmolarity, type II or unspecified type, uncontrolled 250.22 [facility] [address] [address]- 0866 Apr, [facility] [id number] [place] [address] 01551- 2993 Apr, [facility] [id number] [place] [address] 18902- 5175 Apr, [facility] [id number] [place] [address] 67619- 9432 Mar, CAD (coronary artery disease) 414.00 ; Diabetes mellitus, type 2 250.00 and HTN (hypertension), benign 401.1 [facility] [id number] [place] [address] 09968- 1778 Mar, Diabetes mellitus, type II 250.00 and CAD (coronary artery disease) 414.00 [facility] [id number] [place] [address] 18543- 5563 Mar, [facility] [id number] [place] [address] 69410- 9393 Mar, [facility] [address] [address]- 3586 Jan, [facility] [id number] [address]- 4491 December, [facility] [id number] [place] [address] 15800- 8299 December, [facility] [id number] [place] [address] 44831- 0700 Dec, [facility] [address], [place] [address]- 6399 Dec, [facility] [place] [facility] [address] [id number] [place] [address]- 1275 Oct, [facility] [place] [facility] [address] [id number] [place] [address]- 8339 Oct, [facility] [place] [facility] [address] [id number] [place] [address]- 7263 Sep, [facility] [place] [facility] [address] [id number] [place] [address]- 8862 Sep, [facility] [place] [facility] [address] [id number] [place] [address]- 1341 Sep, [facility] [place] [facility] [address] [id number] [place] [address]- 9529 Sep, [facility] [place] [facility] [address] [id number] [place] [address]- 3667 Aug, [facility] [place] [facility] [address] [id number] [place] [address]- 9426 Aug, [facility] [place] [facility] [address] [id number] [place] [address]- 5152 Mar, [facility] [place] [facility] [address] [id number] [place] [address]- 6104 Mar, [facility] [place] [facility] [address] [id number] [place] [address]- 6510 Mar, [facility] [place] [facility] [address] [id number] [place] [address]- 3492 Mar, [facility] [place] [facility] [address] [id number] [place] [address]- 9239 Mar, [facility] [place] [facility] [address] [id number] [place] [address]- 2339 Mar, [facility] [place] [facility] [address] [id number] [place] [address]- 6751 Mar, [facility] [place] [facility] [address] [id number] [place] [address]- 2047 Dec, [facility] [place] [facility] [address] [id number] [place] 2568 Dec, [facility] [place] [facility] [address] [id number] [place] [address]- 5329 Dec, [facility] [place] [facility] [address] [id number] [place] [address]- 1130 Dec, [facility] [place] [facility] [address] [id number] [place] [address]- 9035 Oct, [facility] [place] [facility] [address] [id number] [place] [address]- 2774 Oct, [facility] [place] [facility] [address] [id number] [place] 9298 May, [facility] [place] [facility] [address] [id number] [place] [address]- 8988 Apr, [facility] [place] [facility] [address] [id number] [place] [address]- 8694 Apr, [facility] [place] [facility] [address] [id number] [place] [address]- 5355 December, [facility] [place] [facility] [address] [id number] [place] [address]- 7533 Dec, [facility] [place] [facility] [address] [id number] [place] [address]- 3381 Sep, [facility] [place] [facility] [address] [id number] [place] [address]- 9329 Sep, [facility] [place] [facility] [address] [id number] [place] [address]- 6192 Sep, [facility] [place] [facility] [address] [id number] [place] [address]- 5896 Jul, [facility] [place] [facility] [address] [id number] [place] [address]- 0371 May, [facility] [place] [facility] [address] [id number] [place] [address]- 5436 05 May, 2012 [facility] [address] [id number] [place] [address]- 0835 04 May, 2012 [facility] [address] [id number] [place] [address]- 7246 27 Apr, 2012 [facility] [address] [id number] [place] [address]- 3326 15 Apr, 2012 [facility] [address] [id number] [place] [address]- 0289 14 Apr, 2012 [facility] [address] [id number] [place] [address]- 4134 Mar, [facility] [address] [id number] [place] [address]- 1563 Mar, [facility] [address] [id number] [place] [address]- 9653 Dec, [facility] [address] [id number] [place] [address]- 6372 Oct, [facility] [address] [id number] [place] [address]- 5424 Oct, [facility] [address] [id number] [place] [address]- 7864 Oct, [facility] [address] [id number] [place] [address]- 5788 Oct, [facility] [address] [id number] [place] [address]- 2592 Oct, [facility] [address] [id number] [place] [address]- 8782 Aug, [facility] [address] [id number] [place] [address]- 2546 17 Sep, 2010 [facility] [address] [id number] [place] [address]- 1473 13 May, 2010 [facility] [address] [facility] [id number] [place] [address]- 1588 17 Jul, 2009 [facility] [address] [facility] [id number] [address]- 0513 16 Jul, 2009 [facility] [address] [facility] [id number], [place] [address]- 3990 10 May, 2009 IMMUNIZATIONS No Known Immunizations SOCIAL HISTORY Never Assessed REASON FOR VISIT Cough x3 weeks/RX PLAN OF CARE VITAL SIGNS MEDICATIONS Medication Instructions Dosage Frequency Start Date End Date Duration Status Zithromax Z-Calin 250 MG Orally Once a day 2 tablets on the first day, then 1 tablet daily for 4 days 24h Jul, Aug, 5 day(s) Active RESULTS No Results PROCEDURES No Known [...]
--- OUTSIDE RECORDS SUMMARY | 2018-10-14 15:18 | XMS REPORT ---
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 Active [id number] Problem Hyperbilirubinemia E80.6 Active 30998788 Problem Non-ischemic cardiomyopathy I42.9 Apr, Active 24585174 Problem S/P CABG (coronary artery bypass graft) Z95.1 Active 534419072 Problem Risk for falls Z91.81 Active 896155153 Problem Chronic kidney disease, unspecified CKD stage N18.9 Active 730211650 Problem Increased ammonia level R79.89 Active 930291098 Problem Chronic atrial fibrillation I48.2 Active 889903858 Problem Essential hypertension I10 Active 83026980 Problem Atypical atrial flutter I48.4 Apr, Active 6825883 Problem Coronary artery disease involving [place] coronary artery of [place] heart without angina pectoris I25.10 Active 1437435976204 Problem Hyperammonemia E72.20 Active 5628714 Problem Dilated cardiomyopathy I42.0 Active 664620153 Problem Typical atrial flutter I48.3 Active 397380430 Problem Nonsustained ventricular tachycardia I47.2 Active 882325050 Problem Hypokalemia E87.6 Active 93542712 Problem Acute on chronic systolic (congestive) heart failure I50.23 Active 324520866 Problem Hx of renal calculi Z87.442 Active 536073447 Problem Chronic gout, unspecified cause, unspecified site M1A.9XX0 Active 64473619 Problem Persistent atrial fibrillation I48.1 Active 258347216 ALLERGIES No Information ENCOUNTERS Encounter Location Date Diagnosis [place] [id number] [place] [address] 95645- 0072 Apr, [place] [id number] [place] [address] 30423- 0388 December, [place] [id number] [place] [address] 95823- 1014 December, [place] [id number] [place] [address] 30997- 8758 Dec, Hyperammonemia E72.20 [place] [id number] [place] [address] 78529- 8414 Oct, Increased ammonia level R79.89 ; Pleural effusion, left J90 ; Dilated cardiomyopathy I42.0 ; Weakness R53.1 ; Gait disturbance R26.9 and Diabetes mellitus E11.9 [place] [id number] [place] [address] 42795- 3427 Oct, [place] [id number] [place] [address] 54633- 4989 Oct, [place] [id number] [place] [address] 94251- 1976 Oct, [place] [id number] [place] [address] 97933- 4121 Oct, Weakness R53.1 and Gait disturbance R26.9 [place] [id number] [place] [address] 52106- 7473 Oct, Weakness R53.1 ; 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 ; Type 2 diabetes mellitus without complication E11.9 ; Chronic kidney disease, unspecified CKD stage N18.9 ; Chronic atrial fibrillation I48.2 and Hypokalemia E87.6 [place] [id number] [place] [address] 04394- 7410 19 Oct, 2017 Dilated cardiomyopathy I42.0 ; 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 ; Type 2 diabetes mellitus without complication E11.9 and Chronic atrial fibrillation I48.2 [place] [address] 53663- 0332 09 Oct, 2017 [place] [address] 73471- 8683 Oct, Hypokalemia E87.6 ; Other specified hypotension I95.89 ; Type 2 diabetes mellitus without complication E11.9 and Weakness R53.1 [place] [address] 51306- 9384 Sep, Hypokalemia E87.6 [place] [address] 14397- 1047 Sep, Chronic kidney disease, unspecified CKD stage N18.9 [place] [address] 66985- 7148 Sep, Type 2 diabetes mellitus without complication E11.9 ; Cough R05 and Chronic kidney disease, unspecified CKD stage N18.9 [place] [address] 59848- 1593 Aug, Hypokalemia E87.6 and Acute bronchitis, unspecified organism J20.9 [place] [address] 12206- 8556 Aug, Gait disturbance R26.9 ; Risk for falls Z91.81 ; Acute bronchitis, unspecified organism J20.9 and Hypokalemia E87.6 [place] [address] 24484- 0819 Aug, Hypokalemia E87.6 [place] [address] 91593- 2407 Jul, [place] [address] 84969- 0234 Jul, Encounter for immunization Z23 [place] [id number] [place] [address] 59308- 5348 Jun, Encounter for immunization Z23 [place] [id number] [place] [address] 60508- 5454 Apr, Type 2 diabetes mellitus without complication E11.9 [place] [address] 89511- 2076 Mar, [place] [address] 65698- 6149 Jan, [place] [address] 62401- 6730 Oct, 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 ; Weakness R53.1 and Gait disturbance R26.9 [place] [address] 69564- 1052 Oct, [place] [address] [id number] Oct, 2016 [place] [address] 22662- 3931 13 Oct, 2016 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 ; 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 and Typical atrial flutter I48.3 [place] [id number] [place] [address] 08809- 7582 03 Oct, 2016 Hx of atrioventricular node ablation Z98.890 ; 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 and Type 2 diabetes mellitus with hypoglycemia without coma, without long-term current use of insulin E11.649 [place] [id number] [place] [address] 35841- 0945 Sep, Chronic gout, unspecified cause, unspecified site M1A.9XX0 [place] [id number] [place] [address] 69879- 4485 Sep, Type 2 diabetes mellitus without complication E11.9 [facility] [address] [place] [address] 95256- 4838 Sep, Persistent atrial fibrillation I48.1 ; 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 and Non-ischemic cardiomyopathy I42.9 [place] [address] [place] [address] 62470- 5015 Sep, Persistent atrial fibrillation I48.1 ; 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 and Non-ischemic cardiomyopathy I42.9 [place] [address] [place] [address] 96432- 7377 Aug, 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 [place] [address] [place] [address] 26615- 2019 Jul, Type 2 diabetes mellitus without complication E11.9 [place] [address] [place] [address] 53114- 7697 Jul, Coronary artery disease involving [place] coronary artery of [place] heart without angina pectoris I25.10 ; Typical atrial flutter I48.3 ; 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 ; Acute on chronic systolic (congestive) heart failure I50.23 ; Dilated cardiomyopathy I42.0 and Status post internal cardiac defibrillator procedure Z95.810 [place] [address] [place] [address] 94482- 1887 May, Coronary artery disease involving [place] coronary artery of [place] heart without angina pectoris I25.10 ; Dilated cardiomyopathy I42.0 and Typical atrial flutter I48.3 [place] [address] [place] [address] 69002- 4071 Apr, [place] [address] [place] [address] 86592- 6338 Apr, Coronary artery disease involving [place] coronary artery of [place] heart without angina pectoris I25.10 ; Type 2 diabetes mellitus without complication E11.9 and 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 [facility] [address] [address]- 8873 Apr, [facility] [address] [address]- 6114 Apr, [facility] [address] [address]- 3824 Apr, Dilated cardiomyopathy I42.0 ; Coronary artery disease involving [place] coronary artery of [place] heart without angina pectoris I25.10 ; Typical atrial flutter I48.3 and Automatic implantable cardioverter- defibrillator in situ Z95.810 [facility] [id number] [place] [address] 31257- 5183 Mar, Chronic gout, unspecified cause, unspecified site M1A.9XX0 [facility] [id number] [address]- 9205 Mar, [facility] [address] [address]- 1597 Jan, [facility] [id number] [place] [address] 54216- 1443 Jan, Left arm swelling M79.89 ; Diabetes mellitus E11.9 and CAD ( coronary artery disease) I25.10 [facility] [address] [address]- 6219 Jan, Essential hypertension I10 ; 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 ; Type 2 diabetes mellitus without complication E11.9 and Coronary artery disease involving [place] coronary artery of [place] heart without angina pectoris I25.10 [facility] [address] [address]- 4024 Jan, [facility] [address] [address]- 7758 Jan, [facility] [address] [address]- 8602 Jan, [place] [id number] [address]- 9630 December, [facility] [id number] [place] [address] 33821- 5012 December, [facility] [id number] [place] [address] 94161- 9098 December, Type 2 diabetes mellitus with complication, without long- term current use of insulin E11.8 ; Hyperlipidemia, unspecified hyperlipidemia type E78.5 and Neuropathy G62.9 [place] [id number] [place] [address] 53770- 7160 Dec, [place] [id number] [place] [address] 29476- 3196 Oct, [place] [id number] [place] [address] 15700- 0809 Oct, Dilated cardiomyopathy I42.0 ; CAD (coronary artery disease ) I25.10 ; Typical atrial flutter I48.3 and Diabetes mellitus type II, controlled E11.9 [place] [id number] [place] [address] 09632- 3179 Aug, Diabetes mellitus E11.9 and History of atrial flutter Z86.79 [place] [id number] [place] [address] 40259- 9327 May, [place] [id number] [place] [address] 06999- 3676 May, Hyperkalemia 276.7 and Atrial flutter 427.32 [place] [id number] [place] [address] 18934- 4448 May, [place] [id number] [place] [address] 89401- 4005 May, [place] [id number] [place] [address] 76191- 7506 May, [place] [id number] [address]- 6409 Apr, [facility] [id number] [place] [address] 62030- 6504 Apr, A-fib 427.31 ; Chronic ischemic heart disease, 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 ; Ischemic cardiomyopathy 414.8 ; Chronic combined systolic and diastolic heart failure 428.42 and Diabetes with hyperosmolarity, type II or unspecified type, uncontrolled 250.22 [facility] [id number] [place] [address] 43515- 1543 Apr, [facility] [id number] [place] [address] 16564- 9371 Apr, [facility] [id number] [place] [address] 39562- 6068 Apr, [facility] [id number] [place] [address] 83275- 8421 Mar, CAD (coronary artery disease) 414.00 ; Diabetes mellitus, type 2 250.00 and HTN (hypertension), benign 401.1 [facility] [id number] [place] [address] 56679- 3994 Mar, Diabetes mellitus, type II 250.00 and CAD (coronary artery disease) 414.00 [facility] [address] [place] [address] 48087- 0938 Mar, [facility] [id number] [place] [address] 63065- 9135 Mar, [facility] [address] [address]- 7125 Jan, [facility] [id number] [place] [address] 46966- 9262 December, [facility] [id number] [address]- 0444 December, [facility] [id number] [place] [address] 60386- 9497 Dec, [facility] [place] [facility] [address] [id number] [place] [address]- 2976 Dec, [facility] [place] [facility] [address] [id number] [place] [address]- 4261 Oct, [facility] [place] [facility] [address] [id number] [place] [address]- 9733 Oct, [facility] [place] [facility] [address] [id number] [place] [address]- 3783 Sep, [facility] [place] [facility] [address] [id number] [place] [address]- 8405 Sep, [facility] [place] [facility] [address] [id number] [place] [address]- 1640 Sep, [facility] [place] [facility] [address] [id number] [place] [address]- 0213 Sep, [facility] [place] [facility] [address] [id number] [place] [address]- 6281 Aug, [facility] [place] [facility] [address] [id number] [place] [address]- 6689 Aug, [facility] [place] [facility] [address] [id number] [place] [address]- 6770 Mar, [facility] [place] [facility] [address] [id number] [place] [address]- 4026 Mar, [facility] [place] [facility] [address] [id number] [address]- 2712 Mar, [facility] [place] [facility] [address] [id number] [place] [address]- 0826 Mar, [facility] [place] [facility] [address] [id number] [place] [address]- 5948 Mar, [facility] [place] [facility] [address] [id number] [address]- 1300 Mar, [facility] [place] [facility] [address] [id number] [address]- 7836 Mar, [facility] [address] [id number] [place] [address]- 5265 Dec, [facility] [place] [facility] [address] [id number] [place] [address]- 5479 Dec, [facility] [place] [facility] [address] [id number] [place] [address]- 0810 Dec, [facility] [place] [facility] [address] [id number] [place] [address]- 1746 Dec, [facility] [place] [facility] [address] [id number] [place] [address]- 9555 Oct, [facility] [place] [facility] [address] [id number] [place] [address]- 9410 Oct, [facility] [address] [id number] [place] [address]- 8554 May, [facility] [place] [facility] [address] [id number] [place] [address]- 4266 Apr, [facility] [address] [id number] [place] [address]- 0577 Apr, [facility] [place] [facility] [address] [id number] [place] [address]- 2755 December, [facility] [place] [facility] [address] [id number] [place] [address]- 0373 Dec, [facility] [place] [facility] [address] [id number] [place] [address]- 9190 Sep, [facility] [place] [facility] [address] [id number] [place] [address]- 4350 Sep, [facility] [place] [facility] [address] [id number] [place] [address]- 8349 Sep, [facility] [place] [facility] [address] [id number] [place] [address]- 6198 Jul, [facility] [place] [facility] [address] [id number] [place] [address]- 8669 05 May, 2012 [facility] [place] [facility] [address] [id number] [place] [address]- 0857 05 May, 2012 [facility] [place] [facility] [address] [id number] [place] [address]- 8626 04 May, 2012 [facility] [place] [facility] [address] [id number] [place] [address]- 7223 27 Apr, 2012 [facility] [place] [facility] [address] [id number] [place] [address]- 3636 15 Apr, 2012 [facility] [place] [facility] [address] [id number] [place] [address]- 7398 14 Apr, 2012 [facility] [place] [facility] [address] [id number] [place] [address]- 0956 Mar, [facility] [place] [facility] [address] [id number] [place] [address]- 9601 Mar, [facility] [place] [facility] [address] [id number] [place] [address]- 0244 Dec, [facility] [place] [facility] [address] [id number] [place] [address]- 4067 Oct, [facility] [place] [facility] [address] [id number] [place] [address]- 0727 Oct, [facility] [place] [facility] [address] [id number] [place] [address]- 0365 Oct, [facility] [place] [facility] [address] [id number] [place] [address]- 0188 Oct, [facility] [place] [facility] [address] [id number] [place] [address]- 8822 Oct, [facility] [place] [facility] [address] [id number] [place] [address]- 9046 Aug, [facility] [place] [facility] [address] [id number] [place] [address]- 4288 17 Sep, 2010 [facility] [address] [facility] [id number] [place] [address]- 2343 13 May, 2010 [facility] [address] [facility] [id number] [place] [address]- 2121 17 Jul, 2009 [facility] [address] [facility] [id number] [place] [address]- 8388 16 Jul, 2009 [facility] [address] [facility] [id number] [address]- 0116 10 May, 2009 IMMUNIZATIONS No Known Immunizations [...]
--- OUTSIDE RECORDS SUMMARY | 2018-10-14 15:18 | XMS REPORT ---
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 Active 174647873167337 Problem Hyperbilirubinemia E80.6 Active 96336564 Problem Non-ischemic cardiomyopathy I42.9 Apr, Active 58894789 Problem S/P CABG (coronary artery bypass graft) Z95.1 Active 104414419 Problem Risk for falls Z91.81 Active 452987747 Problem Chronic kidney disease, unspecified CKD stage N18.9 Active 435485993 Problem Increased ammonia level R79.89 Active 901598916 Problem Chronic atrial fibrillation I48.2 Active 888523707 Problem Atypical atrial flutter I48.4 Apr, Active 2522197 Problem Hypokalemia E87.6 Active 86551301 Problem Coronary artery disease involving [place] coronary artery of [place] heart without angina pectoris I25.10 Active 3424565455276 Problem Essential hypertension I10 Active 32909641 Problem Dilated cardiomyopathy I42.0 Active 811584199 Problem Typical atrial flutter I48.3 Active 156215282 Problem Nonsustained ventricular tachycardia I47.2 Active 400750740 Problem Acute on chronic systolic (congestive) heart failure I50.23 Active 274525500 Problem Hx of renal calculi Z87.442 Active 910926768 Problem Chronic gout, unspecified cause, unspecified site M1A.9XX0 Active 16879287 Problem Persistent atrial fibrillation I48.1 Active 708788313 ALLERGIES No Information ENCOUNTERS Encounter Location Date Diagnosis [place] [id number] [place] [address] 00576- 5645 Oct, Increased ammonia level R79.89 ; Pleural effusion, left J90 ; Dilated cardiomyopathy I42.0 ; Weakness R53.1 ; Gait disturbance R26.9 and Diabetes mellitus E11.9 [place] [address] [address]- 2935 Oct, [place] [id number] [place] [address] 16488- 1738 Oct, [place] [address] 37840- 8873 Oct, [place] [address] 50844- 8055 Oct, Weakness R53.1 and Gait disturbance R26.9 [place] [id number] [place] [address] 39144- 6320 Oct, Weakness R53.1 ; 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 ; Type 2 diabetes mellitus without complication E11.9 ; Chronic kidney disease, unspecified CKD stage N18.9 ; Chronic atrial fibrillation I48.2 and Hypokalemia E87.6 [place] [id number] [place] [address] 13734- 6022 Oct, Dilated cardiomyopathy I42.0 ; 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 ; Type 2 diabetes mellitus without complication E11.9 and Chronic atrial fibrillation I48.2 [place] [id number] [place] [address] 56455- 1956 Oct, [place] [id number] [place] [address] 35556- 5451 05 Oct, 2017 Hypokalemia E87.6 ; Other specified hypotension I95.89 ; Type 2 diabetes mellitus without complication E11.9 and Weakness R53.1 [place] [id number] [place] [address] 59500- 1614 Sep, Hypokalemia E87.6 [place] [id number] [place] [address] 84723- 9766 Sep, Chronic kidney disease, unspecified CKD stage N18.9 [place] [id number] [place] [address] 60900- 7766 Sep, Type 2 diabetes mellitus without complication E11.9 ; Cough R05 and Chronic kidney disease, unspecified CKD stage N18.9 [place] [id number] [place] [address] 88264- 4185 Aug, Hypokalemia E87.6 and Acute bronchitis, unspecified organism J20.9 [place] [id number] [place] [address] 70471- 3279 Aug, Gait disturbance R26.9 ; Risk for falls Z91.81 ; Acute bronchitis, unspecified organism J20.9 and Hypokalemia E87.6 [place] [id number] [place] [address] 12862- 1554 Aug, Hypokalemia E87.6 [place] [id number] [place] [address] 01724- 7634 Jul, [place] [id number] [place] [address] 42259- 2462 Jul, Encounter for immunization Z23 [place] [id number] [place] [address] 90773- 2879 Jun, Encounter for immunization Z23 [place] [id number] [place] [address] 53622- 5969 Apr, Type 2 diabetes mellitus without complication E11.9 [place] [id number] [place] [address] 10733- 8869 Mar, [place] [id number] [place] [address] 48292- 6329 Jan, [place] [address] [address] 3313 Oct, 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 ; Weakness R53.1 and Gait disturbance R26.9 [place] [address] [address] 3822 Oct, [facility] [place] [address] [id number] [place] [address] [id number] Oct, [place] [address] [place] [address] 62822- 0264 Oct, 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 ; 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 and Typical atrial flutter I48.3 [place] [address] [place] [address] 36305- 1354 Oct, Hx of atrioventricular node ablation Z98.890 ; 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 and Type 2 diabetes mellitus with hypoglycemia without coma, without long-term current use of insulin E11.649 [place] [address] [place] [address] 04335- 5724 Sep, Chronic gout, unspecified cause, unspecified site M1A.9XX0 [place] [address] [address]- 2569 Sep, Type 2 diabetes mellitus without complication E11.9 [place] [address] [place] [address] 05335- 7654 Sep, Persistent atrial fibrillation I48.1 ; 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 and Non-ischemic cardiomyopathy I42.9 [place] [address] [place] [address] 52788- 8777 Sep, Persistent atrial fibrillation I48.1 ; 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 and Non-ischemic cardiomyopathy I42.9 [place] [id number] [address]- 8339 05 Aug, 2016 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 [facility] [place] [address] [address]- 9104 Jul, Type 2 diabetes mellitus without complication E11.9 [facility] [place] [address] [address]- 4639 Jul, Coronary artery disease involving k[place] coronary artery of [place] heart without angina pectoris I25.10 ; Typical atrial flutter I48.3 ; 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 ; Acute on chronic systolic (congestive) heart failure I50.23 ; Dilated cardiomyopathy I42.0 and Status post internal cardiac defibrillator procedure Z95.810 [facility] [place] [address] [address]- 7087 May, Coronary artery disease involving k[place] coronary artery of [place] heart without angina pectoris I25.10 ; Dilated cardiomyopathy I42.0 and Typical atrial flutter I48.3 [place] [address] [address]- 8749 Apr, [facility] [place] [address] [place] [address] 31154- 1719 Apr, Coronary artery disease involving k[place] coronary artery of [place] heart without angina pectoris I25.10 ; Type 2 diabetes mellitus without complication E11.9 and 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 [facility] [place] [address] [address]- 3595 Apr, [facility] [place] [address] [address]- 4915 Apr, [facility] [address] [place] [address] 08874- 0351 Apr, Dilated cardiomyopathy I42.0 ; Coronary artery disease involving k[place] coronary artery of k[place] heart without angina pectoris I25.10 ; Typical atrial flutter I48.3 and Automatic implantable cardioverter- defibrillator in situ Z95.810 [place] [address] [place] [address] 93397- 3571 Mar, Chronic gout, unspecified cause, unspecified site M1A.9XX0 [place] [id number] [place] [address] 16583- 6702 Mar, [place] [id number] [place] [address] 07259- 0463 Jan, [place] [id number] [place] [address] 85510- 2851 Jan, Left arm swelling M79.89 ; Diabetes mellitus E11.9 and CAD ( coronary artery disease) I25.10 [place] [id number] [place] [address] 00731- 6049 Jan, Essential hypertension I10 ; 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 ; Type 2 diabetes mellitus without complication E11.9 and Coronary artery disease involving [place] coronary artery of [place] heart without angina pectoris I25.10 [place] [id number] [place] [address] 79930- 1182 Jan, [place] [id number] [place] [address] 61486- 1901 Jan, [place] [id number] [place] [address] 43788- 1174 Jan, [place] [id number] [place] [address] 45995- 4863 December, [place] [id number] [place] [address] 74662- 0492 December, [place] [id number] [place] [address] 06724- 7225 December, Type 2 diabetes mellitus with complication, without long- term current use of insulin E11.8 ; Hyperlipidemia, unspecified hyperlipidemia type E78.5 and Neuropathy G62.9 [place] [id number] [place] [address] 77426- 0012 Dec, [place] [id number] [place] [address] 81416- 8050 Oct, [place] [address] 56922- 9506 Oct, Dilated cardiomyopathy I42.0 ; CAD (coronary artery disease ) I25.10 ; Typical atrial flutter I48.3 and Diabetes mellitus type II, controlled E11.9 [place] [address] 65025- 2154 Aug, Diabetes mellitus E11.9 and History of atrial flutter Z86.79 [place] [address] 00049- 2078 May, [place] [address] 56300- 5266 May, Hyperkalemia 276.7 and Atrial flutter 427.32 [place] [address] 53224- 7759 May, [place] [address] 99246- 3069 May, [place] [id number] [place] [address] 31180- 2003 May, [place] [id number] [place] [address] 62056- 3422 Apr, [place] [address] 58993- 3030 Apr, A-fib 427.31 ; Chronic ischemic heart disease, 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 ; Ischemic cardiomyopathy 414.8 ; Chronic combined systolic and diastolic heart failure 428.42 and Diabetes with hyperosmolarity, type II or unspecified type, uncontrolled 250.22 [place] [id number] [place] [address] 73199- 5620 Apr, [place] [address] 99280- 6456 Apr, [facility] [place] [address] [id number] [place] [address]- 8916 Apr, [facility] [place] [address] [facility] [id number] [address]- 1806 Mar, CAD (coronary artery disease) 414.00 ; Diabetes mellitus, type 2 250.00 and HTN (hypertension), benign 401.1 [facility] [place] [address] [id number] [address]- 5222 Mar, Diabetes mellitus, type II 250.00 and CAD (coronary artery disease) 414.00 [facility] [place] [address] [id number] [place] [address]- 7949 Mar, [facility] [place] [address] [facility] [id number] [address]- 0976 Mar, [facility] [place] [address] [place] [address]- 3734 Jan, [facility] [place] [address] [place] [id number] [place] [address]- 4852 December, [facility] [place] [address] [place] [address]- 5286 December, [facility] [place] [id number] [address]- 0109 Dec, [facility] [place] [address] [id number] [place] [address]- 9915 Dec, [facility] [place] [address] [facility] [id number] [place] [address]- 2031 Oct, [facility] [place] [address] [facility] [id number] [place] [address]- 3606 Oct, [facility] [place] [address] [facility] [id number] [place] [address]- 0016 14 Sep, 2014 [facility] [place] [address] [facility] [id number] [place] [address]- 6312 Sep, [facility] [place] [facility] [address] [id number] [place] [address]- 7852 Sep, [facility] [place] [facility] [address] [id number] [place] [address]- 0705 Sep, [facility] [place] [facility] [address] [id number] [place] [address]- 8952 Aug, [facility] [place] [facility] [address] [id number] [place] [address]- 3405 Aug, [facility] [place] [facility] [address] [id number] [place] [address]- 9083 Mar, [facility] [place] [facility] [address] [id number] [place] [address]- 1962 Mar, [facility] [place] [facility] [address] [id number] [place] [address]- 4271 Mar, [facility] [place] [facility] [address] [id number] [place] [address]- 1437 Mar, [facility] [place] [facility] [address] [id number] [place] [address]- 9147 Mar, [facility] [place] [facility] [address] [id number] [place] [address]- 7669 Mar, [facility] [place] [facility] [address] [id number] [place] [address]- 4778 Mar, [facility] [place] [facility] [address] [id number] [place] [address]- 8715 Dec, [facility] [place] [facility] [address] [id number] [place] [address]- 7860 Dec, [facility] [place] [facility] [address] [id number] [place] [address]- 3745 Dec, [facility] [place] [facility] [address] [id number] [place] [address]- 6898 Dec, [facility] [place] [facility] [address] [id number] [place] [address]- 5557 Oct, [facility] [address] [id number] [place] [address]- 2504 Oct, [facility] [address] [id number] [place] [address]- 8802 May, [facility] [address] [id number] [place] [address]- 1206 Apr, [facility] [address] [id number] [place] [address]- 8410 Apr, [facility] [address] [id number] [place] [address]- 0237 December, [facility] [address] [id number] [place] [address]- 2522 Dec, [facility] [address] [id number] [place] [address]- 9282 Sep, [facility] [address] [id number] [place] [address]- 9227 Sep, [facility] [address] [id number] [place] [address]- 2965 Sep, [facility] [address] [id number] [place] [address]- 7254 Jul, [facility] [address] [id number] [place] [address]- 3894 May, [facility] [address] [id number] [place] [address]- 6727 May, [facility] [place] [facility] [address] [id number] [place] [address]- 7313 May, [facility] [address] [id number] [place] [address]- 9116 Apr, [facility] [address] [id number] [place] [address]- 7955 Apr, [facility] [place] [address] [id number] [place] [address]- 2445 14 Apr, 2012 [facility] [place] [address] [facility] [id number] [place] [address]- 4166 Mar, [facility] [place] [address] [facility] [id number] [place] [address]- 3286 Mar, [facility] [place] [address] [facility] [id number] [place] [address]- 8776 Dec, [facility] [place] [address] [id number] [place] [address]- 5696 Oct, [facility] [place] [address] [facility] [id number] [place] [address]- 4516 Oct, [facility] [place] [address] [facility] [id number] [place] [address]- 7286 Oct, [facility] [place] [address] [facility] [id number] [place] [address]- 4246 Oct, [facility] [place] [address] [facility] [id number] [place] [address]- 3866 Oct, [facility] [address] [facility] [id number] [place] [address]- 0326 Aug, [facility] [place] [address] [facility] [id number] [place] [address]- 6196 Sep, [facility] [place] [address] [facility] [id number] [place] [address]- 4146 13 May, 2010 [facility] [place] [address] [facility] [id number] [place] [address]- 0646 17 Jul, 2009 [facility] [place] [address] [facility] [id number] [place] [address]- 3006 16 Jul, 2009 [facility] [place] [address] [facility] [id number] [place] [address]- 0361 10 May, 2009 IMMUNIZATIONS No Known Immunizations SOCIAL HISTORY Never Assessed REASON FOR VISIT Diabetic Shoe Paperwork PLAN OF CARE VITAL SIGNS MEDICATIONS Unknown [...] History Hyperbilirubinemia Medical History Increased ammonia level Surgical History Cardiac Ablation Surgical History Cardiac Bypasses x5 2012 Surgical History History of placement of internal cardiac defibrillator ( [place]) 02/2016 Surgical History implantable cardioverter/defibrillator KU 09/2016 Surgical History AV node ablation 09/2016 Hospitalization History Heart Monitoring 2012 Hospitalization History influenza A, Sepsis, Pneumonia, Elevated liver enzymes -[facility] 10/21/16 Hospitalization History fatigue, observation 11/17
--- OUTSIDE RECORDS SUMMARY | 2018-10-14 15:18 | XMS REPORT ---
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 Active 144084466919984 Problem Hyperbilirubinemia E80.6 Active 39868185 Problem Non-ischemic cardiomyopathy I42.9 Apr, Active 30943900 Problem S/P CABG (coronary artery bypass graft) Z95.1 Active 713839442 Problem Risk for falls Z91.81 Active 111637100 Problem Chronic kidney disease, unspecified CKD stage N18.9 Active 679560164 Problem Increased ammonia level R79.89 Active 744161519 Problem Chronic atrial fibrillation I48.2 Active 423725925 Problem Essential hypertension I10 Active 28936870 Problem Atypical atrial flutter I48.4 Apr, Active 3633500 Problem Coronary artery disease involving [place] coronary artery of [place] heart without angina pectoris I25.10 Active 1044810388281 Problem Hyperammonemia E72.20 Active 7945355 Problem Dilated cardiomyopathy I42.0 Active 203556085 Problem Typical atrial flutter I48.3 Active 715089258 Problem Nonsustained ventricular tachycardia I47.2 Active 462715362 Problem Hypokalemia E87.6 Active 24498512 Problem Acute on chronic systolic (congestive) heart failure I50.23 Active 950341637 Problem Hx of renal calculi Z87.442 Active 425520975 Problem Chronic gout, unspecified cause, unspecified site M1A.9XX0 Active 89368700 Problem Persistent atrial fibrillation I48.1 Active 832963987 ALLERGIES No Information ENCOUNTERS Encounter Location Date Diagnosis [place] [id number] [place] [address] 20232- 9931 December, [place] [id number] [place] [address] 30580- 2430 December, [place] [id number] [place] [address] 51568- 7146 Dec, Hyperammonemia E72.20 [place] [id number] [place] [address] 14108- 6183 Oct, Increased ammonia level R79.89 ; Pleural effusion, left J90 ; Dilated cardiomyopathy I42.0 ; Weakness R53.1 ; Gait disturbance R26.9 and Diabetes mellitus E11.9 [place] [id number] [place] [address] 85013- 7382 Oct, [place] [id number] [place] [address] 97489- 5442 Oct, [place] [id number] [place] [address] 84949- 6780 Oct, [place] [id number] [place] [address] 40608- 7763 Oct, Weakness R53.1 and Gait disturbance R26.9 [place] [id number] [place] [address] 21060- 9455 Oct, Weakness R53.1 ; 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6 ; Other specified hypotension I95.89 ; Type 2 diabetes mellitus without complication E11.9 and Weakness R53.1 [place] [address] 81513- 5160 Sep, Hypokalemia E87.6 [place] [address] 33149- 3787 Sep, Chronic kidney disease, unspecified CKD stage N18.9 [place] [address] 66969- 2233 Sep, Type 2 diabetes mellitus without complication E11.9 ; Cough R05 and Chronic kidney disease, unspecified CKD stage N18.9 [place] [address] 45872- 0975 Aug, Hypokalemia E87.6 and Acute bronchitis, unspecified organism J20.9 [place] [id number] [place] [address] 85291- 2374 Aug, Gait disturbance R26.9 ; Risk for falls Z91.81 ; Acute bronchitis, unspecified organism J20.9 and Hypokalemia E87.6 [place] [id number] [place] [address] 61449- 4158 Aug, Hypokalemia E87.6 [place] [address] 79115- 3964 Jul, [place] [address] 73432- 3499 Jul, Encounter for immunization Z23 [place] [address] 06891- 2860 Jun, Encounter for immunization Z23 [place] [id number] [place] [address] 10700- 0048 Apr, Type 2 diabetes mellitus without complication E11.9 [place] [id number] [place] [address] 84497- 6706 Mar, [place] [address] 80758- 5526 Jan, [place] [address] 37396- 7982 Oct, 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 ; Weakness R53.1 and Gait disturbance R26.9 [place] [id number] [place] [address] 65957- 7734 Oct, [place] [address] [id number] Oct, [place] [id number] [place] [address] 27086- 7113 Oct, 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 ; 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 and Typical atrial flutter I48.3 [place] [id number] [place] [address] 38570- 9049 03 Oct, 2016 Presence of combination internal cardiac defibrillator (ICD ) and pacemaker Z95.810 ; Hx of atrioventricular node ablation Z98.890 and Type 2 diabetes mellitus with hypoglycemia without coma, without long-term current use of insulin E11.649 [place] [id number] [place] [address] 36420- 2479 Sep, Chronic gout, unspecified cause, unspecified site M1A.9XX0 [place] [address] [place] [address] 31740- 3215 Sep, Type 2 diabetes mellitus without complication E11.9 [place] [address] [place] [address]- 6343 Sep, Persistent atrial fibrillation I48.1 ; 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 and Non-ischemic cardiomyopathy I42.9 [place] [address] [place] [address] 41838- 1450 Sep, Persistent atrial fibrillation I48.1 ; 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 and Non-ischemic cardiomyopathy I42.9 [place] [id number] [place] [address] 44600- 3273 Aug, 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 [place] [id number] [place] [address] 99957- 6393 Jul, Type 2 diabetes mellitus without complication E11.9 [place] [id number] [place] [address] 90682- 0492 Jul, Coronary artery disease involving [place] coronary artery of [place] heart without angina pectoris I25.10 ; Typical atrial flutter I48.3 ; 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 ; Acute on chronic systolic (congestive) heart failure I50.23 ; Dilated cardiomyopathy I42.0 and Status post internal cardiac defibrillator procedure Z95.810 [place] [address] [place] [address] 42410- 1607 May, Coronary artery disease involving [place] coronary artery of [place] heart without angina pectoris I25.10 ; Dilated cardiomyopathy I42.0 and Typical atrial flutter I48.3 [place] [address] [place] [address] 17613- 0722 Apr, [place] [id number] [place] [address] 02956- 4115 Apr, Coronary artery disease involving [place] coronary artery of [place] heart without angina pectoris I25.10 ; Type 2 diabetes mellitus without complication E11.9 and 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 [place] [id number] [place] [address] 24135- 2302 Apr, [facility] [address] [address]- 2158 Apr, [facility] [address] [address]- 9553 Apr, Dilated cardiomyopathy I42.0 ; Coronary artery disease involving [place] coronary artery of [place] heart without angina pectoris I25.10 ; Typical atrial flutter I48.3 and Automatic implantable cardioverter- defibrillator in situ Z95.810 [facility] [address] [address]- 4081 Mar, Chronic gout, unspecified cause, unspecified site M1A.9XX0 [place] [id number] [address]- 0924 Mar, [facility] [id number] [address]- 1687 Jan, [facility] [id number] [address]- 3384 Jan, Left arm swelling M79.89 ; Diabetes mellitus E11.9 and CAD ( coronary artery disease) I25.10 [facility] [address] [address]- 7884 Jan, Essential hypertension I10 ; 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 ; Type 2 diabetes mellitus without complication E11.9 and Coronary artery disease involving [place] coronary artery of [place] heart without angina pectoris I25.10 [facility] [address] [address]- 4549 Jan, [facility] [address] [address]- 5473 Jan, [facility] [address] [address]- 7220 Jan, [facility] [address] [address]- 4341 December, [facility] [id number] [place] [address] 52844- 1672 December, [place] [id number] [place] [address] 15051- 6693 December, Type 2 diabetes mellitus with complication, without long- term current use of insulin E11.8 ; Hyperlipidemia, unspecified hyperlipidemia type E78.5 and Neuropathy G62.9 [place] [address] 45879- 1177 Dec, [place] [id number] [place] [address] 28659- 8636 Oct, [place] [address] 31825- 4078 Oct, Dilated cardiomyopathy I42.0 ; CAD (coronary artery disease ) I25.10 ; Typical atrial flutter I48.3 and Diabetes mellitus type II, controlled E11.9 [place] [id number] [place] [address] 40742- 3663 Aug, Diabetes mellitus E11.9 and History of atrial flutter Z86.79 [place] [id number] [place] [address] 03987- 3175 May, [place] [id number] [place] [address] 00115- 8896 May, Hyperkalemia 276.7 and Atrial flutter 427.32 [place] [id number] [place] [address] 59457- 6302 May, [place] [id number] [place] [address] 88705- 1469 May, [place] [id number] [place] [address] 00509- 9081 May, [place] [id number] [place] [address] 06063- 8387 Apr, [place] [id number] [place] [address] 86265- 4629 Apr, A-fib 427.31 ; Chronic ischemic heart disease, 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 ; Ischemic cardiomyopathy 414.8 ; Chronic combined systolic and diastolic heart failure 428.42 and Diabetes with hyperosmolarity, type II or unspecified type, uncontrolled 250.22 [facility] [address] [address]- 4536 Apr, [facility] [id number] [place] [address] 11471- 3042 Apr, [facility] [id number] [place] [address] 73072- 7922 Apr, [facility] [id number] [place] [address] 65428- 0085 Mar, CAD (coronary artery disease) 414.00 ; Diabetes mellitus, type 2 250.00 and HTN (hypertension), benign 401.1 [facility] [id number] [place] [address] 07444- 7077 Mar, Diabetes mellitus, type II 250.00 and CAD (coronary artery disease) 414.00 [facility] [id number] [address]- 5312 Mar, [facility] [address] [address]- 5551 Mar, [facility] [address] [address]- 0231 Jan, [facility] [address] [address]- 5843 December, [facility] [address] [address]- 7567 December, [facility] [address] [address]- 6277 Dec, [facility] [address] [address]- 9613 Dec, [facility] [place] [facility] [address] [id number] [place] [address]- 6914 Oct, [facility] [place] [facility] [address] [id number] [place] [address]- 0982 Oct, [facility] [place] [facility] [address] [id number] [place] [address]- 9407 Sep, [facility] [place] [facility] [address] [id number] [place] [address]- 3749 Sep, [facility] [place] [facility] [address] [id number] [place] [address]- 1645 Sep, [facility] [place] [facility] [address] [id number] [place] [address]- 4593 Sep, [facility] [place] [facility] [address] [id number] [place] [address]- 2350 Aug, [facility] [place] [facility] [address] [id number] [place] [address]- 7017 Aug, [facility] [place] [facility] [address] [id number] [place] [address]- 8177 Mar, [facility] [place] [facility] [address] [id number] [place] [address]- 6477 Mar, [facility] [place] [facility] [address] [id number] [place] [address]- 9208 Mar, [facility] [place] [facility] [address] [id number] [place] [address]- 1618 Mar, [facility] [place] [facility] [address] [id number] [place] [address]- 6100 Mar, [facility] [place] [facility] [address] [id number] [place] [address]- 8615 Mar, [facility] [place] [facility] [address] [id number] [place] [address]- 7973 Mar, [facility] [place] [facility] [address] [id number] [place] [address]- 6196 Dec, [facility] [address] [id number] [place] [address]- 5897 Dec, [facility] [place] [facility] [address] [id number] [place] [address]- 6382 Dec, [facility] [place] [facility] [address] [id number] [place] [address]- 7333 Dec, [facility] [place] [facility] [address] [id number] [place] [address]- 3458 Oct, [facility] [place] [facility] [address] [id number] [place] [address]- 0092 Oct, [facility] [place] [facility] [address] [id number] [place] [address]- 6900 May, [facility] [place] [facility] [address] [id number] [place] [address]- 1692 Apr, [facility] [place] [facility] [address] [id number] [place] [address]- 3235 Apr, [facility] [place] [facility] [address] [id number] [place] [address]- 9139 December, [facility] [place] [facility] [address] [id number] [place] [address]- 2094 Dec, [facility] [place] [facility] [address] [id number] [place] [address]- 4236 Sep, [facility] [place] [facility] [address] [id number] [place] [address]- 5413 Sep, [facility] [place] [facility] [address] [id number] [place] [address]- 4146 Sep, [facility] [place] [facility] [address] [id number] [place] [address]- 5165 Jul, [facility] [place] [facility] [address] [id number] [place] [address]- 2361 May, [facility] [place] [facility] [address] [id number] [place] [address]- 7698 05 May, 2012 [facility] [address] [id number] [place] [address]- 9292 04 May, 2012 [facility] [address] [id number] [place] [address]- 3926 27 Apr, 2012 [facility] [address] [id number] [place] [address]- 3076 15 Apr, 2012 [facility] [address] [id number] [place] [address]- 5318 14 Apr, 2012 [facility] [address] [id number] [place] [address]- 5000 Mar, [facility] [address] [id number] [place] [address]- 5504 Mar, [facility] [address] [id number] [place] [address]- 5155 Dec, [facility] [address] [id number] [place] [address]- 3271 Oct, [facility] [address] [id number] [place] [address]- 0346 Oct, [facility] [address] [id number] [place] [address]- 5856 Oct, [facility] [address] [id number] [place] [address]- 7426 Oct, [facility] [address] [id number] [place] [address]- 7931 Oct, [facility] [place] [facility] [address] [id number] [place] [address]- 5911 Aug, [facility] [address] [id number] [place] [address]- 2546 17 Sep, 2010 [facility] [address] [id number] [place] [address]- 5464 13 May, 2010 [facility] [address] [facility] [id number] [place] [address]- 6685 17 Jul, 2009 [facility] [address] [facility] [id number] [place] 3420 16 Jul, 2009 [facility] [address] [facility] [id number] [address]- 3294 10 May, 2009 IMMUNIZATIONS No Known Immunizations SOCIAL HISTORY Never Assessed REASON FOR VISIT Lab (walk-in) PLAN OF CARE VITAL SIGNS MEDICATIONS Unknown Medications RESULTS No Results PROCEDURES Procedure Date Ordered Result Body Site LAB NOT BILLED BY [facility] Aug 16, 2017 VENIPUNCT, ROUTINE* Aug 16, 2017 INSTRUCTIONS MEDICATIONS ADMINISTERED No Known Medications [...] influenza A, Sepsis, Pneumonia, Elevated liver enzymes -[facility] [place] 10/21/16 Hospitalization History fatigue, observation 11/17
--- OUTSIDE RECORDS SUMMARY | 2018-10-14 15:19 | XMS REPORT ---
Author Author SAPPHIRE FRANK Organization [facility] Address [address] [place] [address] Care Team Providers Care Travel Sales Consultant Name Role Phone SAPPHIRE FRANK Unavailable PROBLEMS Type Condition ICD9-CM Code MVQ19-UV Code Onset Dates Condition Status SNOMED Code Problem Dilated cardiomyopathy I42.0 Active 438260570 Problem Persistent atrial fibrillation I48.1 Active 553146811 Problem Typical atrial flutter I48.3 Active 262370137 Problem Chronic atrial fibrillation I48.2 Active 186577973 Problem S/P CABG (coronary artery bypass graft) Z95.1 Active 215406288 Problem Risk for falls Z91.81 Active 267070214 Problem Hx of renal calculi Z87.442 Active 577349317 Problem 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 12 Sep, 2016 Active 334536214 Problem Hx of atrioventricular node ablation Z98.890 12 Sep, 2016 Active 817268567 Problem Chronic kidney disease, unspecified CKD stage N18.9 Active 706356088 Problem Gait disturbance R26.9 Active 06646899 Problem Coronary artery disease involving [place] coronary artery of [place] heart without angina pectoris I25.10 Active 0496524228397 Problem Type 2 diabetes mellitus without complication E11.9 Active 95971005 Problem Non-ischemic cardiomyopathy I42.9 Apr, Active 91581821 Problem 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 Active [id number] Problem Hypokalemia E87.6 Active 85284064 Problem Nonsustained ventricular tachycardia I47.2 Active 104051160 Problem Essential hypertension I10 Active 68822292 Problem Chronic gout, unspecified cause, unspecified site M1A.9XX0 Active 13311521 Problem Atypical atrial flutter I48.4 Apr, Active 1481417 Problem Acute on chronic systolic (congestive) heart failure I50.23 Active 103542246 ALLERGIES No Information ENCOUNTERS Encounter Location Date Diagnosis [place] [id number] [place] [address] 94198- 6534 Oct, [place] [id number] [place] [address] 19275- 5910 Oct, [place] [id number] [place] [address] 50131- 3125 Oct, Weakness R53.1 and Gait disturbance R26.9 [place] [id number] [place] [address] 08667- 3996 Oct, Weakness R53.1 ; 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 ; Type 2 diabetes mellitus without complication E11.9 ; Hypokalemia E87.6 ; Chronic atrial fibrillation I48.2 and Chronic kidney disease, unspecified CKD stage N18.9 [place] [id number] [place] [address] 87832- 8937 Oct, Dilated cardiomyopathy I42.0 ; 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 ; Type 2 diabetes mellitus without complication E11.9 and Chronic atrial fibrillation I48.2 [place] [id number] [place] [address] 60754- 6336 Oct, [place] [id number] [place] [address] 77441- 8824 Oct, Hypokalemia E87.6 ; Other specified hypotension I95.89 ; Type 2 diabetes mellitus without complication E11.9 and Weakness R53.1 [place] [id number] [place] [address] 22336- 9413 Sep, Hypokalemia E87.6 [place] [id number] [place] [address] 00679- 4914 Sep, Chronic kidney disease, unspecified CKD stage N18.9 [place] [id number] [place] [address] 68979- 1094 Sep, Type 2 diabetes mellitus without complication E11.9 ; Cough R05 and Chronic kidney disease, unspecified CKD stage N18.9 [facility] [id number] [place] [address] 49631- 1014 Aug, Hypokalemia E87.6 and Acute bronchitis, unspecified organism J20.9 [facility] [id number] [place] [address] 35947- 4491 Aug, Gait disturbance R26.9 ; Risk for falls Z91.81 ; Acute bronchitis, unspecified organism J20.9 and Hypokalemia E87.6 [place] [address] 71538- 9926 Aug, Hypokalemia E87.6 [place] [address] 86140- 7728 Jul, [place] [address] 75236- 4964 Jul, Encounter for immunization Z23 [place] [address] 85435- 5060 Jun, Encounter for immunization Z23 [place] [address] 63789- 9659 Apr, Type 2 diabetes mellitus without complication E11.9 [place] [id number] [place] [address] 91126- 3216 Mar, [facility] [id number] [place] [address] 18975- 9322 Jan, [facility] [id number] [place] [address] 85150- 6221 Oct, 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 ; Weakness R53.1 and Gait disturbance R26.9 [facility] [id number] [place] [address] 37349- 6711 Oct, [facility] [address] [id number] Oct, [place] [id number] [place] [address] 57686- 8687 Oct, 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 ; 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 and Typical atrial flutter I48.3 [place] [id number] [place] [address] 77552- 3934 03 Oct, 2016 Presence of combination internal cardiac defibrillator (ICD ) and pacemaker Z95.810 ; Hx of atrioventricular node ablation Z98.890 and Type 2 diabetes mellitus with hypoglycemia without coma, without long-term current use of insulin E11.649 [place] [id number] [place] [address] 65358- 7811 Sep, Chronic gout, unspecified cause, unspecified site M1A.9XX0 [place] [id number] [place] [address] 03740- 6880 Sep, Type 2 diabetes mellitus without complication E11.9 [place] [id number] [place] [address] 55480- 3323 Sep, Persistent atrial fibrillation I48.1 ; 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 and Non-ischemic cardiomyopathy I42.9 [place] [id number] [place] [address] 67631- 3935 Sep, Persistent atrial fibrillation I48.1 ; 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 and Non-ischemic cardiomyopathy I42.9 [place] [id number] [place] [address] 22716- 9158 Aug, 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 [place] [id number] [place] [address] 23003- 3334 Jul, Type 2 diabetes mellitus without complication E11.9 [place] [id number] [place] [address] 87403- 3651 Jul, Coronary artery disease involving [place] coronary artery of [place] heart without angina pectoris I25.10 ; Typical atrial flutter I48.3 ; 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 ; Acute on chronic systolic (congestive) heart failure I50.23 ; Dilated cardiomyopathy I42.0 and Status post internal cardiac defibrillator procedure Z95.810 [facility] [address] [address] 7862 07 May, 2016 Coronary artery disease involving [place] coronary artery of [place] heart without angina pectoris I25.10 ; Dilated cardiomyopathy I42.0 and Typical atrial flutter I48.3 [facility] [id number] [place] [address] 35311- 9352 Apr, [facility] [id number] [place] [address] 10035- 7898 Apr, Coronary artery disease involving [place] coronary artery of [place] heart without angina pectoris I25.10 ; Type 2 diabetes mellitus without complication E11.9 and 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 [facility] [id number] [place] [address] 76711- 7189 Apr, [facility] [id number] [place] [address] 64775- 8439 Apr, [facility] [id number] [place] [address] 23575- 4886 Apr, Dilated cardiomyopathy I42.0 ; Coronary artery disease involving [place] coronary artery of [place] heart without angina pectoris I25.10 ; Typical atrial flutter I48.3 and Automatic implantable cardioverter- defibrillator in situ Z95.810 [facility] [address] [address]- 9681 Mar, Chronic gout, unspecified cause, unspecified site M1A.9XX0 [facility] [id number] [place] [address] 77975- 8152 Mar, [facility] [id number] [place] [address] 58540- 6943 Jan, [facility] [id number] [place] [address] 20128- 8980 Jan, Left arm swelling M79.89 ; Diabetes mellitus E11.9 and CAD ( coronary artery disease) I25.10 [place] [id number] [place] [address] 72920- 2798 Jan, Essential hypertension I10 ; 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 ; Type 2 diabetes mellitus without complication E11.9 and Coronary artery disease involving [place] coronary artery of [place] heart without angina pectoris I25.10 [place] [address] [place] [address] 47444- 7072 Jan, [place] [id number] [place] [address] 84593- 2166 Jan, [place] [id number] [place] [address] 82672- 1960 Jan, [place] [id number] [place] [address] 63998- 3852 December, [place] [id number] [place] [address] 18283- 2141 December, [place] [id number] [place] [address] 62306- 9733 December, Type 2 diabetes mellitus with complication, without long- term current use of insulin E11.8 ; Hyperlipidemia, unspecified hyperlipidemia type E78.5 and Neuropathy G62.9 [place] [address] [place] [address] 93245- 7834 Dec, [place] [id number] [place] [address] 63408- 9129 Oct, [place] [id number] [place] [address] 03033- 6521 Oct, Dilated cardiomyopathy I42.0 ; CAD (coronary artery disease ) I25.10 ; Typical atrial flutter I48.3 and Diabetes mellitus type II, controlled E11.9 [place] [id number] [place] [address] 38511- 4782 Aug, Diabetes mellitus E11.9 and History of atrial flutter Z86.79 [place] [id number] [place] [address] 31804- 5967 May, [facility] [id number] [place] [address] 42937- 7691 May, Hyperkalemia 276.7 and Atrial flutter 427.32 [place] [id number] [place] [address] 40662- 6953 May, [place] [address] 20832- 5254 May, [place] [id number] [place] [address] 00561- 0723 May, [place] [address] 76171- 1984 Apr, [facility] [id number] [place] [address] 95753- 7640 Apr, A-fib 427.31 ; Chronic ischemic heart disease, 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 ; Ischemic cardiomyopathy 414.8 ; Chronic combined systolic and diastolic heart failure 428.42 and Diabetes with hyperosmolarity, type II or unspecified type, uncontrolled 250.22 [place] [id number] [place] [address] 04098- 6283 Apr, [place] [id number] [place] [address] 26047- 7908 Apr, [place] [id number] [place] [address] 18995- 4877 Apr, [place] [id number] [place] [address] 51007- 5629 Mar, CAD (coronary artery disease) 414.00 ; Diabetes mellitus, type 2 250.00 and HTN (hypertension), benign 401.1 [place] [id number] [place] [address] 45642- 6501 Mar, Diabetes mellitus, type II 250.00 and CAD (coronary artery disease) 414.00 [facility] [address] [id number] [place] [address]- 2602 Mar, [facility] [address] [id number] [address]- 8929 Mar, [facility] [address] [id number], [place] [address]- 8740 Jan, [facility] [address] [id number] [place] [address]- 2736 December, [facility] [address] [id number] [place] [address]- 5499 December, [facility] [address] [address]- 7500 Dec, [facility] [address] [id number], [place] [address]- 0812 Dec, [facility] [id number] [place] [address]- 8426 Oct, [facility] [id number] [address]- 9571 Oct, [facility] [address] [id number], [place] [address]- 7690 Sep, [facility] [id number], [place] [address]- 6547 Sep, [facility] [address] [id number], [place] [address]- 6416 Sep, [facility] [address] [facility] [id number], [place] [address]- 2313 Sep, [facility] [id number] 4362 Aug, [facility] [address] [id number], [place] [address]- 9948 Aug, [facility] [place] [facility] [address] [id number] [place] [address]- 3135 Mar, [facility] [place] [facility] [address] [id number] [place] [address]- 1846 Mar, [facility] [place] [facility] [address] [id number] [place] [address]- 7590 Mar, [facility] [place] [facility] [address] [id number] [place] [address]- 3366 Mar, [facility] [place] [facility] [address] [id number] [place] [address]- 5182 Mar, [facility] [place] [facility] [address] [id number] [place] [address]- 4278 Mar, [facility] [place] [facility] [address] [facility] [id number] [place] [address]- 6785 Mar, [facility] [place] [facility] [address] [id number] [place] [address]- 1523 Dec, [facility] [place] [facility] [address] [id number] [place] [address]- 4947 Dec, [facility] [place] [facility] [address] [facility] [id number] [place] [address]- 1286 Dec, [facility] [place] [facility] [address] [id number] [place] [address]- 9955 Dec, [facility] [place] [facility] [address] [id number] [place] [address]- 4117 Oct, [facility] [place] [facility] [address] [id number] [place] [address]- 0696 Oct, [facility] [place] [facility] [address] [id number] [place] [address]- 8050 May, [facility] [place] [facility] [address] [facility] [id number] [place] [address]- 5193 Apr, [facility] [place] [facility] [address] [id number] [place] [address]- 4099 Apr, [facility] [place] [facility] [address] [id number] [place] [address]- 4029 December, [facility] [place] [facility] [address] [id number] [place] [address]- 2654 Dec, [facility] [place] [facility] [address] [id number] [place] [address]- 3217 Sep, [facility] [place] [facility] [address] [id number] [place] [address]- 9188 Sep, [facility] [place] [facility] [address] [id number] [place] [address]- 6691 Sep, [facility] [place] [facility] [address] [id number] [place] [address]- 9623 Jul, [facility] [address] [id number] [place] [address]- 6162 May, [facility] [place] [facility] [address] [id number] [place] [address]- 6802 May, [facility] [place] [facility] [address] [id number] [place] [address]- 2407 May, [facility] [place] [facility] [address] [id number] [place] [address]- 3466 Apr, [facility] [place] [facility] [address] [id number] [place] [address]- 0583 Apr, [facility] [place] [facility] [address] [id number] [place] [address]- 5241 14 Apr, 2012 [facility] [place] [facility] [address] [id number] [place] [address]- 5771 Mar, [facility] [place] [facility] [address] [id number] [place] [address]- 7043 Mar, [facility] [place] [facility] [address] [id number] [place] [address]- 0271 Dec, [facility] [id number], [place] [address]- 9269 Oct, [facility] [address], [place] [address]- 6256 Oct, [facility] [address], [place] [address]- 4919 Oct, [facility] [address], [place] [address]- 8392 Oct, [facility] [address], [place] [address]- 3540 Oct, [facility] [address], [place] [address]- 9554 Aug, [facility] [address], [place] [address]- 3649 Sep, [facility] [address], [place] [address]- 9387 May, [facility] [address], [place] [address]- 9878 Jul, [facility] [address], [place] [address]- 2841 16 Jul, 2009 [facility] [id number], [place] [address]- 0591 10 May, 2009 IMMUNIZATIONS No Known Immunizations SOCIAL HISTORY Never Assessed REASON FOR VISIT Med List Update PLAN OF CARE VITAL SIGNS MEDICATIONS Medication Instructions Dosage Frequency Start Date End Date Duration Status Potassium Chloride Rosa ER 20 MEQ Orally 2 times a day 1 tablet 12h Active Metolazone 5 MG 1 tablet Active Furosemide 80 MG Orally Once a day 1 tablet in the morning 24h Active Toprol XL 25 MG Orally Once a day 1 tablet at bedtime 24h Active Magnesium Oxide 400 MG Orally Once a day 1 tablet as needed 24h Active Lancets Ultra Thin Lancets test blood sugar 12h 23 Sep, 2016 30 days Active Allopurinol 100 mg Orally Once a day 1 tablet 24h Active Cod Liver Oil Active Garlic 1000 MG Active Eliquis 2.5 MG Orally 2 times a day 1 tablet 12h 24 Apr, 2015 Active Aspir-81 81 MG Orally Once a day 1 tablet 24h Active Blood Glucose Meter 1 glucometer test blood sugar 12h Sep, lifetime Active Metoprolol Succinate ER 50 MG Orally Once a day 1 tablet in the morning 24h Active Entresto 24-26 MG Orally Twice a day 1 tablet 12h Active Blood Glucose Test Strip Test Strips test blood sugar 12h Sep, 30 days Active Amiodarone HCl 200 MG Orally Once a day 1 tablet 24h Active GlyBURIDE 5 mg Orally Once a day 1/2 tablet 24h Mar, Active RESULTS No Results [...] influenza A, Sepsis, Pneumonia, Elevated liver enzymes -[facility] 10/21/16
--- OUTSIDE RECORDS SUMMARY | 2018-10-14 15:19 | XMS REPORT ---
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 Active [id number] Problem Hyperbilirubinemia E80.6 Active 85541462 Problem Non-ischemic cardiomyopathy I42.9 Apr, Active 06689817 Problem S/P CABG (coronary artery bypass graft) Z95.1 Active 807749790 Problem Risk for falls Z91.81 Active 916263325 Problem Chronic kidney disease, unspecified CKD stage N18.9 Active 670000131 Problem Increased ammonia level R79.89 Active 154223659 Problem Chronic atrial fibrillation I48.2 Active 913663720 Problem Essential hypertension I10 Active 25513405 Problem Atypical atrial flutter I48.4 Apr, Active 6236082 Problem 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 Active 9758405727545 Problem Hyperammonemia E72.20 Active 4794572 Problem Dilated cardiomyopathy I42.0 Active 193058191 Problem Typical atrial flutter I48.3 Active 650209195 Problem Nonsustained ventricular tachycardia I47.2 Active 810182931 Problem Hypokalemia E87.6 Active 12871910 Problem Acute on chronic systolic (congestive) heart failure I50.23 Active 718548596 Problem Hx of renal calculi Z87.442 Active 762092040 Problem Chronic gout, unspecified cause, unspecified site M1A.9XX0 Active 63731012 Problem Persistent atrial fibrillation I48.1 Active 340835344 ALLERGIES No Information ENCOUNTERS Encounter Location Date Diagnosis [facility] [id number] [place] [address] 42650- 2295 December, [facility] [id number] [place] [address] 59068- 8998 December, [facility] [id number] [place] [address] 13295- 4585 Dec, Hyperammonemia E72.20 [facility] [id number] [place] [address] 41786- 8259 Oct, Increased ammonia level R79.89 ; Pleural effusion, left J90 ; Dilated cardiomyopathy I42.0 ; Weakness R53.1 ; Gait disturbance R26.9 and Diabetes mellitus E11.9 [facility] [id number] [place] [address] 61682- 4800 Oct, [facility] [id number] [place] [address] 89453- 0893 Oct, [facility] [id number] [place] [address] 84283- 8489 Oct, [facility] [id number] [place] [address] 57942- 4868 Oct, Weakness R53.1 and Gait disturbance R26.9 [facility] [id number] [place] [address] 74930- 4501 Oct, Weakness R53.1 ; 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 ; Type 2 diabetes mellitus without complication E11.9 ; Chronic kidney disease, unspecified CKD stage N18.9 ; Chronic atrial fibrillation I48.2 and Hypokalemia E87.6 [facility] [id number] [place] [address] 17152- 4578 Oct, Dilated cardiomyopathy I42.0 ; 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 ; Type 2 diabetes mellitus without complication E11.9 and Chronic atrial fibrillation I48.2 [facility] [address] 94957- 7527 09 Oct, 2017 [facility] [place] [address] [place] [id number]- 8554 05 Oct, 2017 Hypokalemia E87.6 ; Other specified hypotension I95.89 ; Type 2 diabetes mellitus without complication E11.9 and Weakness R53.1 [facility] [address] 09582- 0720 Sep, Hypokalemia E87.6 [facility] [address] 82419- 8212 Sep, Chronic kidney disease, unspecified CKD stage N18.9 [facility] [address] 70346- 4360 Sep, Type 2 diabetes mellitus without complication E11.9 ; Cough R05 and Chronic kidney disease, unspecified CKD stage N18.9 [facility] [id number] [place] [address] 80062- 5840 Aug, Hypokalemia E87.6 and Acute bronchitis, unspecified organism J20.9 [facility] [id number] [place] [address] 65295- 5928 Aug, Gait disturbance R26.9 ; Risk for falls Z91.81 ; Acute bronchitis, unspecified organism J20.9 and Hypokalemia E87.6 [facility] [id number] [place] [address] 18299- 8066 Aug, Hypokalemia E87.6 [facility] [address] 23388- 4091 Jul, [facility] [address] 26173- 7596 Jul, Encounter for immunization Z23 [facility] [address] 95711- 2761 Jun, Encounter for immunization Z23 [facility] [id number] [place] [address] 01837- 1863 Apr, Type 2 diabetes mellitus without complication E11.9 [facility] [id number] [place] [address] 71262- 2294 Mar, [facility] [address] 20446- 5226 Jan, [facility] [address] 80053- 9514 Oct, 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 ; Weakness R53.1 and Gait disturbance R26.9 [facility] [id number] [place] [address] 95147- 1542 Oct, [place] [facility] [address] [id number] Oct, [facility] [id number] [place] [address] 23096- 5301 Oct, 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 ; 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 and Typical atrial flutter I48.3 [facility] [id number] [place] [address] 33729- 5747 03 Oct, 2016 Hx of atrioventricular node ablation Z98.890 ; 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 and Type 2 diabetes mellitus with hypoglycemia without coma, without long-term current use of insulin E11.649 [facility] [id number] [place] [address] 11836- 1059 Sep, Chronic gout, unspecified cause, unspecified site M1A.9XX0 [facility] [id number] [place] [address] 67801- 5037 Sep, Type 2 diabetes mellitus without complication E11.9 [facility] [id number] [place] [address] 88101- 5474 Sep, Persistent atrial fibrillation I48.1 ; 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 and Non-ischemic cardiomyopathy I42.9 [facility] [id number] [place] [address] 47056- 4848 Sep, Persistent atrial fibrillation I48.1 ; 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 and Non-ischemic cardiomyopathy I42.9 [facility] [id number] [place] [address] 83098- 4542 Aug, 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 [facility] [id number] [place] [address] 25062- 6059 Jul, Type 2 diabetes mellitus without complication E11.9 [facility] [id number] [place] [address] 61742- 0043 Jul, 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 ; Typical atrial flutter I48.3 ; 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 ; Acute on chronic systolic (congestive) heart failure I50.23 ; Dilated cardiomyopathy I42.0 and Status post internal cardiac defibrillator procedure Z95.810 [facility] [id number] [place] [address] 42863- 2656 May, 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 ; Dilated cardiomyopathy I42.0 and Typical atrial flutter I48.3 [facility] [id number] [place] [address] 10272- 4387 Apr, [facility] [id number] [place] [address] 94889- 0231 Apr, 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 ; Type 2 diabetes mellitus without complication E11.9 and 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 [facility] [id number] [place] [address] 76064- 0818 Apr, [facility] [place] [facility] [address] [address]- 2059 Apr, [facility] [place] [facility] [id number] [address]- 9473 Apr, Dilated cardiomyopathy I42.0 ; 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 ; Typical atrial flutter I48.3 and Automatic implantable cardioverter- defibrillator in situ Z95.810 [facility] [place] [facility] [address] [address]- 9177 Mar, Chronic gout, unspecified cause, unspecified site M1A.9XX0 [facility] [facility] [id number] [place] [address] 83952- 2185 Mar, [facility] [place] [facility] [id number] [address]- 0263 Jan, [facility] [place] [facility] [id number] [place] [address] 81451- 2441 Jan, Left arm swelling M79.89 ; Diabetes mellitus E11.9 and CAD ( coronary artery disease) I25.10 [facility] [place] [facility] [address] [address]- 8998 Jan, Essential hypertension I10 ; 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 ; Type 2 diabetes mellitus without complication E11.9 and 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 [facility] [place] [facility] [address] [address]- 5337 Jan, [facility] [place] [facility] [address] [address]- 2657 Jan, [facility] [place] [facility] [address] [address]- 8624 Jan, [facility] [place] [facility] [address] [address]- 4505 December, [facility] [place] [facility] [id number] [place] [address] 64901- 5675 December, [facility] [id number] [place] [address] 06463- 3138 December, Type 2 diabetes mellitus with complication, without long- term current use of insulin E11.8 ; Hyperlipidemia, unspecified hyperlipidemia type E78.5 and Neuropathy G62.9 [facility] [address] 96100- 4671 Dec, [facility] [id number] [place] [address] 83348- 7725 Oct, [facility] [address] 49135- 5643 Oct, Dilated cardiomyopathy I42.0 ; CAD (coronary artery disease ) I25.10 ; Typical atrial flutter I48.3 and Diabetes mellitus type II, controlled E11.9 [facility] [id number] [place] [address] 41143- 5027 Aug, Diabetes mellitus E11.9 and History of atrial flutter Z86.79 [facility] [id number] [place] [address] 23149- 2992 May, [facility] [id number] [place] [address] 46457- 5410 May, Hyperkalemia 276.7 and Atrial flutter 427.32 [facility] [id number] [place] [address] 67279- 9872 May, [facility] [id number] [place] [address] 27192- 7597 May, [facility] [id number] [place] [address] 03034- 0614 May, [facility] [place] [id number] [place] [address] 81804- 9161 Apr, [facility] [id number] [place] [address] 99806- 3514 Apr, A-fib 427.31 ; Chronic ischemic heart disease, 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 ; Ischemic cardiomyopathy 414.8 ; Chronic combined systolic and diastolic heart failure 428.42 and Diabetes with hyperosmolarity, type II or unspecified type, uncontrolled 250.22 [facility] [place] [facility] [address] [address]- 5086 Apr, [facility] [place] [facility] [id number] [place] [address] 56441- 2609 Apr, [facility] [place] [facility] [id number] [place] [address] 70514- 3691 Apr, [facility] [place] [facility] [id number] [place] [address] 53254- 5484 Mar, CAD (coronary artery disease) 414.00 ; Diabetes mellitus, type 2 250.00 and HTN (hypertension), benign 401.1 [facility] [place] [facility] [id number] [place] [address] 86093- 7430 Mar, Diabetes mellitus, type II 250.00 and CAD (coronary artery disease) 414.00 [facility] [place] [facility] [id number] [place] [address] 09456- 3078 Mar, [facility] [place] [facility] [id number] [place] [address] 59271- 0222 Mar, [facility] [place] [facility] [address] [address]- 6981 Jan, [facility] [place] [facility] [id number] [address]- 5380 December, [facility] [place] [facility] [id number] [place] [address] 95109- 6479 December, [facility] [place] [facility] [id number] [place] [address] 27999- 2697 Dec, [facility] [place] [facility] [address] [address]- 7554 Dec, [facility] [place] [facility] [address] [id number] [place] [address]- 1494 Oct, [facility] [place] [facility] [address] [id number] [place] [address]- 3387 Oct, [facility] [place] [facility] [address] [id number] [place] [address]- 1019 Sep, [facility] [place] [facility] [address] [id number] [place] [address]- 0333 Sep, [facility] [place] [facility] [address] [id number] [place] [address]- 8967 Sep, [facility] [place] [facility] [address] [id number] [place] [address]- 1893 Sep, [facility] [place] [facility] [address] [id number] [place] [address]- 8125 Aug, [facility] [place] [facility] [address] [id number] [place] [address]- 7348 Aug, [facility] [place] [facility] [address] [id number] [place] [address]- 5865 Mar, [facility] [place] [facility] [address] [id number] [place] [address]- 7844 Mar, [facility] [place] [facility] [address] [id number] [place] [address]- 1031 Mar, [facility] [place] [facility] [address] [id number] [place] [address]- 1967 Mar, [facility] [place] [facility] [address] [id number] [place] [address]- 5915 Mar, [facility] [place] [facility] [address] [id number] [place] [address]- 4669 Mar, [facility] [place] [facility] [address] [id number] [place] [address]- 8197 Mar, [facility] [place] [facility] [address] [id number] [place] [address]- 5914 Dec, [facility] [place] [facility] [address] [id number] [place] 7988 Dec, [facility] [place] [facility] [address] [id number] [place] [address]- 3697 Dec, [facility] [place] [facility] [address] [id number] [place] [address]- 5580 Dec, [facility] [place] [facility] [address] [id number] [place] [address]- 6512 Oct, [facility] [place] [facility] [address] [id number] [place] [address]- 2603 Oct, [facility] [place] [facility] [address] [id number] [place] 1589 May, [facility] [place] [facility] [address] [id number] [place] [address]- 6803 Apr, [facility] [place] [facility] [address] [id number] [place] [address]- 4232 Apr, [facility] [place] [facility] [address] [id number] [place] [address]- 9009 December, [facility] [place] [facility] [address] [id number] [place] [address]- 3992 Dec, [facility] [place] [facility] [address] [id number] [place] [address]- 9820 Sep, [facility] [place] [facility] [address] [id number] [place] [address]- 4464 Sep, [facility] [place] [facility] [address] [id number] [place] [address]- 9115 Sep, [facility] [place] [facility] [address] [id number] [place] [address]- 3036 Jul, [facility] [place] [facility] [address] [id number] [place] [address]- 7170 May, [facility] [place] [facility] [address] [id number] [place] [address]- 3336 05 May, 2012 [facility] [address] [id number] [place] [address]- 9519 04 May, 2012 [facility] [address] [id number] [place] [address]- 1326 27 Apr, 2012 [facility] [address] [id number] [place] [address]- 6816 15 Apr, 2012 [facility] [address] [id number] [place] [address]- 5673 14 Apr, 2012 [facility] [address] [id number] [place] [address]- 2287 Mar, [facility] [address] [id number] [place] [address]- 2091 Mar, [facility] [address] [id number] [place] [address]- 4497 Dec, [facility] [address] [id number] [place] [address]- 4186 Oct, [facility] [address] [id number] [place] [address]- 8671 Oct, [facility] [address] [id number] [place] [address]- 0950 Oct, [facility] [address] [id number] [place] [address]- 1440 Oct, [facility] [address] [id number] [place] [address]- 4432 Oct, [facility] [address] [id number] [place] [address]- 0689 Aug, [facility] [address] [id number] [place] [address]- 2546 17 Sep, 2010 [facility] [address] [id number] [place] 1917 13 May, 2010 [facility] [place] [facility] [address] [facility] [id number] [place] [address]- 2113 17 Jul, 2009 [facility] [place] [facility] [address] [facility] [id number] [place] [address]- 6274 16 Jul, 2009 [facility] [place] [facility] [address] [facility] [id number] [place] [address]- 5813 10 May, 2009 IMMUNIZATIONS No Known Immunizations SOCIAL HISTORY Never Assessed REASON FOR VISIT Influenza/Pneumonia Vaccine Order PLAN OF CARE VITAL SIGNS MEDICATIONS [...] influenza A, Sepsis, Pneumonia, Elevated liver enzymes -[facility] 10/21/16 Hospitalization History fatigue, observation 11/17
--- OUTSIDE RECORDS SUMMARY | 2018-10-14 15:20 | XMS REPORT ---
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 Active [id number] Problem Hyperbilirubinemia E80.6 Active 22695845 Problem Non-ischemic cardiomyopathy I42.9 Apr, Active 99748191 Problem S/P CABG (coronary artery bypass graft) Z95.1 Active 114305811 Problem Risk for falls Z91.81 Active 618196566 Problem Chronic kidney disease, unspecified CKD stage N18.9 Active 770815258 Problem Increased ammonia level R79.89 Active 491977558 Problem Chronic atrial fibrillation I48.2 Active 903034332 Problem Essential hypertension I10 Active 78822627 Problem Atypical atrial flutter I48.4 Apr, Active 7295730 Problem Coronary artery disease involving k[place] de[place] coronary artery of k[place] de[place] heart without angina pectoris I25.10 Active 1442765778135 Problem Hyperammonemia E72.20 Active 9017534 Problem Dilated cardiomyopathy I42.0 Active 176642073 Problem Typical atrial flutter I48.3 Active 831776971 Problem Nonsustained ventricular tachycardia I47.2 Active 193834913 Problem Hypokalemia E87.6 Active 26658036 Problem Acute on chronic systolic (congestive) heart failure I50.23 Active 144493465 Problem Hx of renal calculi Z87.442 Active 881889505 Problem Chronic gout, unspecified cause, unspecified site M1A.9XX0 Active 89108318 Problem Persistent atrial fibrillation I48.1 Active 809320434 ALLERGIES No Information ENCOUNTERS Encounter Location Date Diagnosis [facility] [id number] [place] [address] 61065- 2216 December, [facility] [id number] [place] [address] 26723- 2730 December, [facility] [id number] [place] [address] 44083- 4095 Dec, Hyperammonemia E72.20 [facility] [id number] [place] [address] 34983- 9902 Oct, Increased ammonia level R79.89 ; Pleural effusion, left J90 ; Dilated cardiomyopathy I42.0 ; Weakness R53.1 ; Gait disturbance R26.9 and Diabetes mellitus E11.9 [facility] [id number] [place] [address] 89822- 9658 Oct, [facility] [id number] [place] [address] 54753- 2168 Oct, [facility] [id number] [place] [address] 03978- 7848 Oct, [facility] [id number] [place] [address] 06337- 5733 Oct, Weakness R53.1 and Gait disturbance R26.9 [facility] [id number] [place] [address] 70914- 9148 Oct, Weakness R53.1 ; 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 ; Type 2 diabetes mellitus without complication E11.9 ; Hypokalemia E87.6 ; Chronic atrial fibrillation I48.2 and Chronic kidney disease, unspecified CKD stage N18.9 [facility] [id number] [place] [address] 47759- 4773 Oct, Dilated cardiomyopathy I42.0 ; 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 ; Type 2 diabetes mellitus without complication E11.9 and Chronic atrial fibrillation I48.2 [facility] [address] 67214- 5180 09 Oct, 2017 [place] [place] [address] [place] [id number]- 2199 05 Oct, 2017 Hypokalemia E87.6 ; Other specified hypotension I95.89 ; Type 2 diabetes mellitus without complication E11.9 and Weakness R53.1 [facility] [address] 42207- 4325 Sep, Hypokalemia E87.6 [facility] [address] 70446- 2524 Sep, Chronic kidney disease, unspecified CKD stage N18.9 [facility] [address] 27774- 3885 Sep, Type 2 diabetes mellitus without complication E11.9 ; Cough R05 and Chronic kidney disease, unspecified CKD stage N18.9 [facility] [id number] [place] [address] 52303- 9987 Aug, Hypokalemia E87.6 and Acute bronchitis, unspecified organism J20.9 [facility] [id number] [place] [address] 31093- 7795 Aug, Gait disturbance R26.9 ; Risk for falls Z91.81 ; Acute bronchitis, unspecified organism J20.9 and Hypokalemia E87.6 [facility] [id number] [place] [address] 46129- 5885 Aug, Hypokalemia E87.6 [facility] [address] 55160- 2939 Jul, [facility] [address] 33976- 1218 Jul, Encounter for immunization Z23 [facility] [address] 04567- 9467 Jun, Encounter for immunization Z23 [facility] [id number] [place] [address] 15116- 6344 Apr, Type 2 diabetes mellitus without complication E11.9 [facility] [id number] [place] [address] 51284- 5983 Mar, [facility] [address] 18917- 8095 Jan, [facility] [address] 07151- 3417 Oct, Chronic combined systolic 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 ; Weakness R53.1 and Gait disturbance R26.9 [facility] [id number] [place] [address] 55016- 2783 Oct, [facility] [place] [address] [id number] Oct, [facility] [id number] [place] [address] 80022- 7268 Oct, Chronic combined systolic and diastolic congestive heart failure I50.42 ; 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 and Typical atrial flutter I48.3 [facility] [id number] [place] [address] 04195- 3850 03 Oct, 2016 Presence of combination internal cardiac defibrillator (ICD ) and pacemaker Z95.810 ; Hx of atrioventricular node ablation Z98.890 and Type 2 diabetes mellitus with hypoglycemia without coma, without long-term current use of insulin E11.649 [facility] [id number] [place] [address] 17975- 8813 Sep, Chronic gout, unspecified cause, unspecified site M1A.9XX0 [facility] [address] [place] [address] 99387- 6108 Sep, Type 2 diabetes mellitus without complication E11.9 [facility] [id number] [place] [address] 21729- 5452 Sep, Persistent atrial fibrillation I48.1 ; 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 and Non-ischemic cardiomyopathy I42.9 [facility] [address] [place] [address] 21867- 9018 Sep, Persistent atrial fibrillation I48.1 ; 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 and Non-ischemic cardiomyopathy I42.9 [facility] [id number] [place] [address] 45004- 6463 Aug, 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 [facility] [id number] [place] [address] 22311- 9774 Jul, Type 2 diabetes mellitus without complication E11.9 [facility] [id number] [place] [address] 88026- 6703 Jul, Coronary artery disease involving k[place]sel de[place] coronary artery of k[place] heart without angina pectoris I25.10 ; Typical atrial flutter I48.3 ; 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 ; Acute on chronic systolic (congestive) heart failure I50.23 ; Dilated cardiomyopathy I42.0 and Status post internal cardiac defibrillator procedure Z95.810 [facility] [address] [place] [address] 83858- 5982 May, Coronary artery disease involving k[place] de[place] coronary artery of k[place] heart without angina pectoris I25.10 ; Dilated cardiomyopathy I42.0 and Typical atrial flutter I48.3 [facility] [address] [place] [address] 16703- 4811 Apr, [facility] [address] [place] [address] 34410- 3076 Apr, Coronary artery disease involving k[place]sel de[place] coronary artery of [place] heart without angina pectoris I25.10 ; Type 2 diabetes mellitus without complication E11.9 and 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 [facility] [id number] [place] [address] 38972- 4511 Apr, [facility] [address] [address]- 4937 Apr, [facility] [id number] [address]- 3468 Apr, Dilated cardiomyopathy I42.0 ; Coronary artery disease involving k[place] coronary artery of k[place] heart without angina pectoris I25.10 ; Typical atrial flutter I48.3 and Automatic implantable cardioverter- defibrillator in situ Z95.810 [facility] [address] [address]- 4577 Mar, Chronic gout, unspecified cause, unspecified site M1A.9XX0 [facility] [id number] [place] [address] 14439- 2356 Mar, [facility] [id number] [address]- 4808 Jan, [facility] [id number] [place] [address] 86746- 2936 Jan, Left arm swelling M79.89 ; Diabetes mellitus E11.9 and CAD ( coronary artery disease) I25.10 [facility] [address] [address]- 9524 Jan, Essential hypertension I10 ; 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 ; Type 2 diabetes mellitus without complication E11.9 and Coronary artery disease involving kletsel de[place] coronary artery of k[place] de[place] heart without angina pectoris I25.10 [facility] [address] [address]- 7988 Jan, [facility] [address] [address]- 4784 Jan, [facility] [address] [address]- 0168 Jan, [facility] [address] [address]- 0202 December, [facility] [id number] [place] [address] 02877- 5681 December, [facility] [id number] [place] [address] 08050- 3431 December, Type 2 diabetes mellitus with complication, without long- term current use of insulin E11.8 ; Hyperlipidemia, unspecified hyperlipidemia type E78.5 and Neuropathy G62.9 [facility] [address] 19366- 9274 Dec, [facility] [id number] [place] [address] 25837- 6065 Oct, [facility] [address] 93533- 0943 Oct, Dilated cardiomyopathy I42.0 ; CAD (coronary artery disease ) I25.10 ; Typical atrial flutter I48.3 and Diabetes mellitus type II, controlled E11.9 [facility] [id number] [place] [address] 18239- 2841 Aug, Diabetes mellitus E11.9 and History of atrial flutter Z86.79 [facility] [place] [id number] [place] [address] 20283- 7647 May, [facility] [id number] [place] [address] 34217- 7875 May, Hyperkalemia 276.7 and Atrial flutter 427.32 [facility] [id number] [place] [address] 66480- 0249 May, [facility] [id number] [place] [address] 24681- 5849 May, [facility] [id number] [place] [address] 02905- 7779 May, [facility] [id number] [place] [address] 99798- 1912 Apr, [facility] [id number] [place] [address] 76370- 5009 Apr, A-fib 427.31 ; Chronic ischemic heart disease, 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 ; Ischemic cardiomyopathy 414.8 ; Chronic combined systolic and diastolic heart failure 428.42 and Diabetes with hyperosmolarity, type II or unspecified type, uncontrolled 250.22 [facility] [address] [address]- 4583 Apr, [facility] [id number] [place] [address] 23341- 6135 Apr, [facility] [id number] [place] [address] 27099- 8417 Apr, [facility] [id number] [place] [address] 75574- 4290 Mar, CAD (coronary artery disease) 414.00 ; Diabetes mellitus, type 2 250.00 and HTN (hypertension), benign 401.1 [facility] [id number] [place] [address] 34875- 5864 Mar, Diabetes mellitus, type II 250.00 and CAD (coronary artery disease) 414.00 [facility] [id number] [place] [address] 52005- 5976 Mar, [facility] [id number] [place] [address] 81718- 0267 Mar, [facility] [address] [address]- 7021 Jan, [facility] [id number] [address]- 3411 December, [facility] [id number] [place] [address] 79802- 2043 December, [facility] [id number] [place] [address] 74821- 7991 Dec, [facility] [address], [place] [address]- 4610 Dec, [facility] [place] [facility] [address] [id number] [place] [address]- 6846 Oct, [facility] [place] [facility] [address] [id number] [place] [address]- 8388 Oct, [facility] [place] [facility] [address] [id number] [place] [address]- 9250 Sep, [facility] [place] [facility] [address] [id number] [place] [address]- 2216 Sep, [facility] [place] [facility] [address] [id number] [place] [address]- 8737 Sep, [facility] [place] [facility] [address] [id number] [place] [address]- 1518 Sep, [facility] [place] [facility] [address] [id number] [place] [address]- 4321 Aug, [facility] [place] [facility] [address] [id number] [place] [address]- 4872 Aug, [facility] [place] [facility] [address] [id number] [place] [address]- 4392 Mar, [facility] [place] [facility] [address] [id number] [place] [address]- 4259 Mar, [facility] [place] [facility] [address] [id number] [place] [address]- 5296 Mar, [facility] [place] [facility] [address] [id number] [place] [address]- 1403 Mar, [facility] [place] [facility] [address] [id number] [place] [address]- 4919 Mar, [facility] [place] [facility] [address] [id number] [place] [address]- 6275 Mar, [facility] [place] [facility] [address] [id number] [place] [address]- 1463 Mar, [facility] [place] [facility] [address] [id number] [place] [address]- 3871 Dec, [facility] [place] [facility] [address] [id number] [place] 7533 Dec, [facility] [place] [facility] [address] [id number] [place] [address]- 3663 Dec, [facility] [place] [facility] [address] [id number] [place] [address]- 5104 Dec, [facility] [place] [facility] [address] [id number] [place] [address]- 9329 Oct, [facility] [place] [facility] [address] [id number] [place] [address]- 6703 Oct, [facility] [place] [facility] [address] [id number] [place] 6956 May, [facility] [place] [facility] [address] [id number] [place] [address]- 7780 Apr, [facility] [place] [facility] [address] [id number] [place] [address]- 4396 Apr, [facility] [place] [facility] [address] [id number] [place] [address]- 2984 December, [facility] [place] [facility] [address] [id number] [place] [address]- 3155 Dec, [facility] [place] [facility] [address] [id number] [place] [address]- 5921 Sep, [facility] [place] [facility] [address] [id number] [place] [address]- 2130 Sep, [facility] [place] [facility] [address] [id number] [place] [address]- 1261 Sep, [facility] [place] [facility] [address] [id number] [place] [address]- 7298 Jul, [facility] [place] [facility] [address] [id number] [place] [address]- 5967 May, [facility] [place] [facility] [address] [id number] [place] [address]- 6986 05 May, 2012 [facility] [address] [id number] [place] [address]- 8414 04 May, 2012 [facility] [address] [id number] [place] [address]- 7816 27 Apr, 2012 [facility] [address] [id number] [place] [address]- 1806 15 Apr, 2012 [facility] [address] [id number] [place] [address]- 4037 14 Apr, 2012 [facility] [address] [id number] [place] [address]- 4623 Mar, [facility] [address] [id number] [place] [address]- 0427 Mar, [facility] [address] [id number] [place] [address]- 0723 Dec, [facility] [address] [id number] [place] [address]- 1202 Oct, [facility] [address] [id number] [place] [address]- 8597 Oct, [facility] [address] [id number] [place] [address]- 5553 Oct, [facility] [address] [id number] [place] [address]- 5641 Oct, [facility] [address] [id number] [place] [address]- 3586 Oct, [facility] [address] [id number] [place] [address]- 0290 Aug, [facility] [address] [id number] [place] [address]- 2546 17 Sep, 2010 [facility] [address] [id number] [place] [address]- 2119 13 May, 2010 [facility] [address] [facility] [id number] [place] [address]- 9104 17 Jul, 2009 [facility] [address] [facility] [id number] [place] [address]- 7699 16 Jul, 2009 [facility] [address] [facility] [id number] [place] [address]- 3589 10 May, 2009 IMMUNIZATIONS No Known Immunizations SOCIAL HISTORY Never Assessed REASON FOR VISIT Cane order; lab order PLAN OF CARE VITAL SIGNS MEDICATIONS Medication Instructions Dosage Frequency Start Date End Date Duration Status Cane - as directed Aug, Active RESULTS No Results PROCEDURES No Known [...] -[facility] 10/21/16 Hospitalization History fatigue, observation 11/17
[2018-10-14 15:37] LABS: BASOPHILS % (AUTO) 0 % (0-10); EOSINOPHILS % (AUTO) 0 % (0-10); HEMATOCRIT 44 % (40-54); HEMOGLOBIN 14.5 G/DL (13.3-17.7); LYMPHOCYTES # (AUTO) 0.4 X 10^3 (1.0-4.0); LYMPHOCYTES % (AUTO) 9 % (12-44); MEAN CORPUSCULAR HEMOGLOBIN 26 PG (25-34); MEAN CORPUSCULAR HGB CONC 33 G/DL (32-36); MEAN CORPUSCULAR VOLUME 80 FL (80-99); MEAN PLATELET VOLUME 10.9 FL (7.4-10.4); MONOCYTES # (AUTO) 0.8 X 10^3 (0.0-1.0); MONOCYTES % (AUTO) 17 % (0-12); NEUTROPHILS # (AUTO) 3.4 X 10^3 (1.8-7.8); NEUTROPHILS % (AUTO) 74 % (42-75); PLATELET COUNT 89 10^3/uL (130-400); RED CELL DISTRIBUTION WIDTH 18.4 % (10.0-14.5); WHITE BLOOD COUNT 4.7 10^3/uL (4.3-11.0)
--- NOTE | 2018-10-14 15:46 | ED General ---
General Chief Complaint: Glucose Problems Stated Complaint: CONFUSED/LOW BLOOD SUGAR Nursing Triage Note: "sitting on toilet and became dizzy" Nursing Sepsis Screen: No Definite Risk Source of Information: Patient Exam Limitations: No Limitations History of Present Illness Date Seen by Provider: Oct 14, 2018 Time Seen by Provider: 15:10 Initial Comments 78-year-old male who was brought to the emergency room by [facility] for complaints of confusion and low blood sugar. The patient reports that he was using the toilet when he became dizzy. EMS reports on arrival to the patient 's home he had a blood sugar of 56 and was very confused and had slurred speech. They gave the patient will glucose and one half of an amp of D50 and on arrival to the emergency room the patient's blood sugar is 152 and the patient is alert, oriented, and is no longer having slurred speech. He reports that he is feeling much better at this time. Timing/Duration: 1 Hour Associated Systoms: Other (slurred speech and confusion.) Allergies and Home Medications Allergies Coded Allergies: No Known Drug Allergies (Unverified , 04/17/15) Home Medications Allopurinol 100 Mg Tablet, 100 MG PO DAILY, (Reported) Apixaban 2.5 Mg Tablet, 2.5 MG PO BID Prescribed by: SINGH REYES on 11/22/17 1111 Aspirin 81 Mg Tablet.dr, 81 MG PO DAILY, (Reported) Carvedilol 3.125 Mg Tablet, 3.125 MG PO BID Prescribed by: SINGH REYES on 11/22/17 1111 Furosemide 40 Mg Tablet, 80 MG PO DAILY, (Reported) LAST FILLED #60 17 TAKES 2 (40MG) TABLETS Garlic 1,000 Mg Capsule, 1,000 MG PO DAILY, (Reported) Glyburide 5 Mg Tablet, 2.5 MG PO DAILY, (Reported) LAST FILLED #45 05-27-17 TAKES 1/2 (5MG) TABLET Lactulose 20 Gm/30 Ml Solution, 10 GM PO DAILY Prescribed by: SINGH REYES on 11/22/17 1111 Metolazone 5 Mg Tablet, 5 MG PO DAILY, (Reported) LAST FILLED #31 AUGUST 2017 Multivitamin 1 Each Tablet, 1 TAB PO DAILY, (Reported) Potassium Chloride 10 Meq Tablet.er, 10 MEQ PO DAILY, (Reported) Sacubitril/Valsartan 1 Each Tablet, 1 TAB PO BID Prescribed by: SINGH REYES on 11/22/17 1111 Zinc Oxide 28 Gm Oint, 0 GM TOP TID Prescribed by: SINGH REYES on 11/22/17 1111 Past Tyloagr-Mvmerd-Nqqdbj Hx Patient Social History Alcohol Use: Denies Use Recreational Drug Use: No Smoking Status: Former Smoker Former Smoker, Quit: Sep 02, 1973 2nd Hand Smoke Exposure: No Recent Foreign Travel: No Contact w/Someone Who Travel: No Recent Infectious Disease Expo: No Recent Hopitalizations: Yes Physical Abuse: No Sexual Abuse: No Mistreated: No Fear: No Immunizations Up To Date Tetanus Booster (TDap): Unknown PED Vaccines UTD: No Date of Pneumonia Vaccine: Jun 02, 2017 Date of Influenza Vaccine: Jun 05, 2017 Seasonal Allergies Seasonal Allergies: No Past Medical History Surgeries: Yes (PACEMAKER) Cardiac, CABG, Defibrillator, Pacemaker Respiratory: No Currently Using CPAP: No Currently Using BIPAP: No Cardiac: Yes (CABG/ATRIAL FLUTTER, congestive heart failure) Atrial Fibrillation, Cardiomyopathy, Coronary Artery Disease, Hypertension, Valvular Heart Disease Neurological: No Reproductive Disorders: No Sexually Transmitted Disease: No HIV/AIDS: No Genitourinary: No Kidney Stones Gastrointestinal: No Musculoskeletal: No Endocrine: Yes Diabetes, Non-Insulin dep HEENT: No Loss of Vision: Bilateral Hearing Impairment: Denies Cancer: No Psychosocial: No Integumentary: No Blood Disorders: No Family Medical History Patient reports no known family medical history. Cancer, Hypertension Physical Exam Vital Signs Vital Signs - First Documented 10/14/18 15:21 Pulse 81 Resp 18 B/P (MAP) 85/64 (71) Capillary Refill : Less Than 3 Seconds Height, Weight, BMI Height: 6'0.00" Weight: 173lbs. 8.0oz. [id number]; 26.3 BMI Method:Stated Progress/Results/Core Measures Suspected Sepsis Recent Fever Within 48 Hours: No Infection Criteria Present: None New/Unexplained Altered Menta: Yes Sepsis Screen: No Definite Risk SIRS Temperature: Pulse: 81 Respiratory Rate: 18 Laboratory Tests 10/14/18 15:14: White Blood Count 4.7 Blood Pressure 85 /64 Mean: 71 Laboratory Tests 10/14/18 15:14: Platelet Count 89L Results/Orders Lab Results Laboratory Tests Test 10/14/18 15:06 10/14/18 15:14 Range/Units Glucometer 152 H 70-110 MG/DL White Blood Count 4.7 4.3-11.0 10^3/uL Red Blood Count 5.57 4.35-5.85 10^6/uL Hemoglobin 14.5 13.3-17.7 G/DL Hematocrit 44 40-54 % Mean Corpuscular Volume 80 80-99 FL Mean Corpuscular Hemoglobin 26 25-34 PG Mean Corpuscular Hemoglobin Concent 33 32-36 G/DL Red Cell Distribution Width 18.4 H 10.0-14.5 % Platelet Count 89 L 130-400 10^3/uL Mean Platelet Volume 10.9 H 7.4-10.4 FL Neutrophils (%) (Auto) 74 42-75 % Lymphocytes (%) (Auto) 9 L 12-44 % Monocytes (%) (Auto) 17 H 0-12 % Eosinophils (%) (Auto) 0 0-10 % Basophils (%) (Auto) 0 0-10 % Neutrophils # (Auto) 3.4 1.8-7.8 X 10^3 Lymphocytes # (Auto) 0.4 L 1.0-4.0 X 10^3 Monocytes # (Auto) 0.8 0.0-1.0 X 10^3 Eosinophils # (Auto) 0.0 0.0-0.3 10^3/uL Basophils # (Auto) 0.0 0.0-0.1 10^3/uL My Orders Orders - BENEDICT REED Comprehensive Metabolic Panel (10/14/18 15:18) Saline Lock/Iv-Start (10/14/18 15:18) Cbc With Automated Diff (10/14/18 15:18) General/Regular (10/14/18 Lunch) Accucheck Stat ONCE (10/14/18 15:37) Accucheck Stat ONCE (10/14/18 15:37) Vital Signs/I&O 10/14/18 15:21 Pulse 81 Resp 18 B/P (MAP) 85/64 (71) Capillary Refill : Less Than 3 Seconds Blood Pressure Mean: 71 Departure Impression Primary Impression: Hypoglycemia associated with diabetes Disposition: 01 HOME, SELF-CARE Condition: Stable/Unchanged Departure-Patient Inst. Decision time for Depature: 15:53 Referrals: KYLE FARIAS DO (PCP/Family) Primary Care Physician Patient Instructions: HYPOGLYCEMIA Add. Discharge Instructions: Keep an eye on your blood sugars at home along with your blood pressure. Eat a well-balanced diet that is diabetic appropriate. Return back to the emergency room for worsening symptoms or concerns as needed. All discharge instructions reviewed with patient and/or family. Voiced understanding. BENEDICT REED Oct 14, 2018 15:46
--- NOTE | 2018-10-14 15:51 | NUR ---
FOOD TRAY GIVEN.
[2018-10-14 15:58] LABS: ALANINE AMINOTRANSFERASE 19 U/L (0-55); ALBUMIN 3.1 GM/DL (3.2-4.5); ALKALINE PHOSPHATASE 102 U/L (40-136); BILIRUBIN,TOTAL 2.3 MG/DL (0.1-1.0); BUN/CREATININE RATIO 30; CALCIUM 8.4 MG/DL (8.5-10.1); CARBON DIOXIDE 24 MMOL/L (21-32); CHLORIDE 99 MMOL/L (98-107); CREATININE SERUM 1.14 MG/DL (0.60-1.30); GFR ESTIMATED > 60; GLUCOSE 146 MG/DL (70-105); POTASSIUM 3.4 MMOL/L (3.6-5.0); SODIUM 134 MMOL/L (135-145); TOTAL PROTEIN 6.7 GM/DL (6.4-8.2)
[2018-10-14 16:30] VITALS: BP 101/69
== END 2018-10-14 16:35 | disposition home or self-care (01) ==
LOC: EDUNIT# 14:59 → ER 15:00
DX: E11.649 Type 2 diabetes mellitus with hypoglycemia without coma (principal); I48.91 Unspecified atrial fibrillation; I11.0 Hypertensive heart disease with heart failure; I50.9 Heart failure, unspecified; I25.10 Atherosclerotic heart disease of native coronary artery without angina pectoris; I73.9 Peripheral vascular disease, unspecified; Z82.49 Family history of ischemic heart disease and other diseases of the circulatory system; Z87.442 Personal history of urinary calculi; Z79.82 Long term (current) use of aspirin; Z79.01 Long term (current) use of anticoagulants; Z79.4 Long term (current) use of insulin; Z87.891 Personal history of nicotine dependence; Z95.810 Presence of automatic (implantable) cardiac defibrillator; Z98.890 Other specified postprocedural states; Z95.1 Presence of aortocoronary bypass graft
CPT/HCPCS: 36415; 80053; 82962; 85025

== ENCOUNTER 2019-03-25 13:27 | Day surgery (SDC) | payer MEDICARE, OTHER ==
[~2019-03-25] VITALS: Ht 182.9 cm; Wt 68.3 kg
[2019-03-25] VITALS (22 sets, daily range): BP systolic 80–101; BP diastolic 51–68
[2019-03-25] MEDS ORDERED: NS IV 500 ML 500 ML IV PRN (13:37)
[2019-03-25] MEDS ORDERED: NS IV 500 ML 500 ML ONE (13:37)
--- NOTE | 2019-03-25 13:40 | Conscious Sedation/ASA ---
Conscious Sedation Pre-Proced Time 13:00 ASA Score 3 For ASA 3 and 4: Consider anesthesia and medical clearance. Also, for patients with a history of failed moderate sedation consider anesthesia. Airway Lungs Heart ASA score ASA 1: a normal healthy patient ASA 2: a patient with a mild systemic disease (mid diabetes, controlled hypertension, obesity ASA 3: a patient with a severe systemic disease that limits activity (angina, COPD, prior Myocardial infarction) ASA 4: a patient with an incapacitating disease that is a constant threat to life (CHF, renal failure) ASA 5: a moribund patient not expected to survive 24 hrs. (ruptured aneurysm) ASA 6: a declared brain- patient whose organs are being harvested. For emergent operations, add the letter E after the classification Mallampati Classification Grade 2 Sedation Plan Analgesia, Amnesia, Plan communicated to team members, Discussed options with patient/fam, Discussed risks with patient/fam The patient is an appropriate candidate to undergo the planned procedure, sedation, and anesthesia. The patient immediately re-assessed prior to indication. MAUDE GOLDSMITH MD Mar 25, 2019 13:40
--- NOTE | 2019-03-25 13:41 | Progress Note-Pre Operative ---
Pre-Operative Progress Note H&P Reviewed The H&P was reviewed, patient examined and no changes noted. Date Seen by Provider: Mar 25, 2019 Time Seen by Provider: 13:00 Date H&P Reviewed: Mar 25, 2019 Time H&P Reviewed: 13:00 Pre-Operative Diagnosis: dysphagia, weight loss MAUDE GOLDSMITH MD Mar 25, 2019 13:41
--- NOTE | 2019-03-25 13:42 | Discharge Inst-Surgical ---
D/C Lap Instructions-AGUS Follow Up Activity as tolerated High Fiber Diet 25g or more per day Avoid Alcohol, Caffeine, Spicy Cleone and Acid foods. Drink 64 fluid oz or more of fluids per day. Symptoms to Report: Fever over 101 degree F, Nausea/Vomiting If any problems/questions: Contact your physician or go to Emergency Room MAUDE GOLDSMITH MD Mar 25, 2019 13:42
[2019-03-25] MEDS ORDERED: ONDANSETRON 4 MG/2 ML (SDV) Z0FRAN IVP PRN (13:45)
[2019-03-25] MEDS ORDERED: fentaNYL INJECTION 100 MCG/2 ML AMP IVP ONE (13:45)
[2019-03-25] MEDS ORDERED: LIDOCAINE JELLY 2% 6 ML SYRINGE MM PRN (13:45)
[2019-03-25] MEDS ORDERED: morphine INJ 10 MG/ML 1ML (SYR OR VIAL) IVP PRN ×2 (13:45)
[2019-03-25] MEDS ORDERED: HURRICAINE EXT TUBE (BENZOCAINE) XX PRN (13:45)
[2019-03-25] MEDS ORDERED: HYDROcodone/APAP 5 MG/325 MG (LORTAB) TAB PO PRN (13:45)
[2019-03-25] MEDS ORDERED: MIDAZOLAM 2 MG/2 ML (VERSED) VIAL IVP ONE (13:45)
[2019-03-25] MEDS ORDERED: ACETAMINOPHEN 325 MG TABLET PO PRN (13:45)
--- OUTSIDE RECORDS SUMMARY | 2019-03-25 13:52 | XMS REPORT ---
Author Author SAPPHIRE FRANK [facility] Address [address] [place] [address] Care Team Providers Care Regrinder Operator Name Role Phone SAPPHIRE FRANK Unavailable PROBLEMS Type Condition ICD9-CM Code TSH52-KO Code Onset Dates Condition Status SNOMED Code Problem Hypokalemia E87.6 Active 77279137 Problem Atypical atrial flutter I48.4 16 Apr, 2015 Active 4588872 Problem Essential hypertension I10 Active 26826402 Problem Hyperammonemia E72.20 Active 3145969 Problem Chronic gout, unspecified cause, unspecified site [id number].[id number] Active 39661318 Problem Nonsustained ventricular tachycardia I47.2 Active 929971116 Problem Typical atrial flutter I48.3 Active 775663613 Problem S/P CABG (coronary artery bypass graft) Z95.1 Active 885322203 Problem Dilated cardiomyopathy I42.0 Active 741330822 Problem Hx of renal calculi Z87.442 Active 430855600 Problem Hx of atrioventricular node ablation Z98.890 12 Sep, 2016 Active 552908342 Problem 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 12 Sep, 2016 Active 887154587 Problem Gait disturbance R26.9 Active 11120119 Problem Hyperbilirubinemia E80.6 Active 28568137 Problem Persistent atrial fibrillation I48.1 Active 630874741 Problem 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 Active 390428407799002 Problem Type 2 diabetes mellitus without complication E11.9 Active 495585939 Problem Acute on chronic systolic (congestive) heart failure I50.23 Active 725413512 Problem Non-ischemic cardiomyopathy I42.9 16 Apr, 2015 Active 53369298 Problem 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 Active 9210562172839 Problem Chronic kidney disease, unspecified CKD stage N18.9 Active 759867602 Problem Risk for falls Z91.81 Active 474592322 Problem Chronic atrial fibrillation I48.2 Active 362052607 Problem Increased ammonia level R79.89 Active 487381425 ALLERGIES No Information ENCOUNTERS Encounter Location Date Diagnosis [place] [id number] [place] [id number] 15 Mar, 2019 Eructation R14.2 and Type 2 diabetes mellitus without complication E11.9 [place] [id number] [place] [address] Jan, [place] [id number] [place] [address] 06 Jan, 2019 Atypical atrial flutter I48.4 ; 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 and Type 2 diabetes mellitus without complication E11.[address] [place] [address] 08 Oct, 2018 Dental examination Z01.20 and Caries K02.9 [place] [id number] [place] [address] 13 Oct, 2018 Type 2 diabetes mellitus without complication E11.9 [place] [id number] [place] [address] 01 Oct, 2018 Hypokalemia E87.6 [place] [id number] [place] [address] Sep, Hypokalemia E87.[address] [place] [address] Sep, [address] [address] 14 Sep, 2018 Dental examination Z01.20 and Caries K02.9 [place] [id number] [place] [address] Aug, Hypokalemia E87.6 [place] [id number] [place] [address] Aug, Type 2 diabetes mellitus without complication E11.9 and 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 [facility] [address] [address] Apr, Chronic atrial fibrillation I48.2 and 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 [place] [address] [place] [id number] [place] [address] Apr, Type 2 diabetes mellitus without complication E11.9 ; Hypokalemia E87.6 ; Chronic atrial fibrillation I48.2 and Dilated cardiomyopathy I42.0 [place] [address] [place] [id number] [place] [address] December, [place] [address] [place] [id number] [place] [address] December, [place] [address] [place] [id number] [place] [address] Dec, Hyperammonemia E72.20 [place] [address] [place] [id number] [place] [address] Oct, Increased ammonia level R79.89 ; Pleural effusion, left J90 ; Dilated cardiomyopathy I42.0 ; Weakness R53.1 ; Gait disturbance R26.9 and Diabetes mellitus E11.9 [place] [address] [place] [id number] [place] [address] Oct, [place] [address] [place] [id number] [place] [address] Oct, [facility] [id number] [place] [address] Oct, [place] [address] [place] [id number] [place] [address] Oct, Weakness R53.1 and Gait disturbance R26.9 [place] [address] [place] [id number] [place] [address] Oct, Weakness R53.1 ; 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 ; Type 2 diabetes mellitus without complication E11.9 ; Chronic kidney disease, unspecified CKD stage N18.9 ; Chronic atrial fibrillation I48.2 and Hypokalemia E87.6 [place] [address] [address] 19 Oct, 2017 Dilated cardiomyopathy I42.0 ; 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 ; Type 2 diabetes mellitus without complication E11.9 and Chronic atrial fibrillation I48.2 [place] [address] [address] Oct, [place] [address] [address] Oct, Hypokalemia E87.6 ; Other specified hypotension I95.89 ; Type 2 diabetes mellitus without complication E11.9 and Weakness R53.[address] [address] Sep, Hypokalemia E87.6 [place] [address] [address] Sep, Chronic kidney disease, unspecified CKD stage N18.9 [place] [address] [address] Sep, Type 2 diabetes mellitus without complication E11.9 ; Cough R05 and Chronic kidney disease, unspecified CKD stage N18.9 [place] [address] [address] Aug, Hypokalemia E87.6 and Acute bronchitis, unspecified organism J20.9 [place] [address] [address] Aug, Gait disturbance R26.9 ; Risk for falls Z91.81 ; Acute bronchitis, unspecified organism J20.9 and Hypokalemia E87.6 [place] [address] [address] Aug, Hypokalemia E87.6 [facility] [address] [id number] [place] [address] Jul, [facility] [address] [address] Jul, Encounter for immunization Z23 [place] [address] [address] Jun, Encounter for immunization Z23 [facility] [address] [address] Apr, Type 2 diabetes mellitus without complication E11.9 [place] [address] [address] Mar, [place] [address] [address] Jan, [place] [address] [address] Oct, 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 ; Weakness R53.1 and Gait disturbance R26.9 [place] [address] [address] 28 Oct, 2016 [facility] [address] [id number] 24 Oct, 2016 [place] [address] [address] 13 Oct, 2016 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 ; 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 and Typical atrial flutter I48.3 [place] [address] [address] 03 Oct, 2016 Hx of atrioventricular node ablation Z98.890 ; 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 and Type 2 diabetes mellitus with hypoglycemia without coma, without long-term current use of insulin E11.649 [place] [address] [place] [address] Sep, Chronic gout, unspecified cause, unspecified site M1A.9XX0 [place] [address] [place] [address] Sep, Type 2 diabetes mellitus without complication E11.9 [place] [address] [place] [id number] [place] [address] Sep, Persistent atrial fibrillation I48.1 ; 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 and Non-ischemic cardiomyopathy I42.9 [place] [address] [place] [id number] [place] [address] Sep, Persistent atrial fibrillation I48.1 ; 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 and Non-ischemic cardiomyopathy I42.9 [place] [address] [place] [id number] [place] [address] Aug, 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 [place] [address] [place] [id number] [place] [address] Jul, Type 2 diabetes mellitus without complication E11.9 [place] [address] [place] [id number] [place] [address] Jul, 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 ; Typical atrial flutter I48.3 ; 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 ; Acute on chronic systolic (congestive) heart failure I50.23 ; Dilated cardiomyopathy I42.0 and Status post internal cardiac defibrillator procedure Z95.810 [place] [address] [place] [address] May, 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 ; Dilated cardiomyopathy I42.0 and Typical atrial flutter I48.3 [place] [address] [place] [address] Apr, [place] [address] [address] Apr, 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 ; Type 2 diabetes mellitus without complication E11.9 and 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 [place] [address] [place] [id number] [address] Apr, [place] [address] [place] [id number] [place] [address] Apr, [place] [address] [place] [id number] [place] [address] Apr, Dilated cardiomyopathy I42.0 ; 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 ; Typical atrial flutter I48.3 and Automatic implantable cardioverter-defibrillator in situ Z95.810 [place] [address] [place] [id number] [place] [address] Mar, Chronic gout, unspecified cause, unspecified site M1A.9XX0 [place] [address] [place] [id number] [place] [address] Mar, [place] [id number] [place] [address] Jan, [place] [address] [place] [address] Jan, Left arm swelling M79.89 ; Diabetes mellitus E11.9 and CAD (coronary artery disease) I25.10 [place] [address] [address] Jan, Essential hypertension I10 ; 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 ; Type 2 diabetes mellitus without complication E11.9 and 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 [place] [address] [place] [address] Jan, [facility] [address] [address] Jan, [facility] [address] [place] [id number] [place] [address] Jan, [facility] [address] [id number] [address] December, [facility] [address] [place] [id number] [place] [address] December, [facility] [address] [place] [id number] [place] [address] December, Type 2 diabetes mellitus with complication, without long-term current use of insulin E11.8 ; Hyperlipidemia, unspecified hyperlipidemia type E78.5 and Neuropathy G62.9 [place] [address] [place] [id number] [place] [address] Dec, [place] [address] [place] [id number] [place] [address] Oct, [facility] [address] [place] [address] Oct, Dilated cardiomyopathy I42.0 ; CAD (coronary artery disease) I25.10 ; Typical atrial flutter I48.3 and Diabetes mellitus type II, controlled E11.9 [place] [address] [address] Aug, Diabetes mellitus E11.9 and History of atrial flutter Z86.79 [place] [address] [address] May, [place] [address] [place] [id number] [place] [address] May, Hyperkalemia 276.7 and Atrial flutter 427.32 [place] [address] [address] May, [facility] [id number] [address] May, [facility] [address], [place] [address] May, [facility] [address], [place] [address] Apr, [facility] [address] [id number] [place] [address] Apr, A-fib 427.31 ; Chronic ischemic heart disease, 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 ; Ischemic cardiomyopathy 414.8 ; Chronic combined systolic and diastolic heart failure 428.42 and Diabetes with hyperosmolarity, type II or unspecified type, uncontrolled 250.22 [facility] [address] [id number] [place] [address] Apr, [facility] [address] [id number] [place] [address] Apr, [facility] [address] [place] [id number] [place] [address] Apr, [facility] [address] [place] [address] Mar, CAD (coronary artery disease) 414.00 ; Diabetes mellitus, type 2 250.00 and HTN (hypertension), benign 401.1 [facility] [address], [place] [address] Mar, Diabetes mellitus, type II 250.00 and CAD (coronary artery disease) 414.00 [facility] [address], [place] [address] Mar, [facility] [address] [place] [id number] [place] [address] Mar, [facility] [address], [place] [address] Jan, [facility] [address] [place] [address] December, [facility] [place] [facility] [address] [id number] [place] [address] December, [facility] [place] [facility] [address] [id number] [place] [address] Dec, [facility] [place] [facility] [address] [id number] [place] [address] Dec, [facility] [place] [facility] [address] [id number] [place] [address] Oct, [facility] [place] [facility] [address] [id number] [place] [address] Oct, [facility] [place] [facility] [address] [id number] [place] [address] Sep, [facility] [place] [facility] [address] [id number] [place] [address] Sep, [facility] [place] [facility] [address] [id number] [place] [address] Sep, [facility] [place] [facility] [address] [id number] [place] [address] Sep, [facility] [place] [facility] [address] [id number] [place] [address] Aug, [facility] [place] [facility] [address] [id number] [place] [address] Aug, [facility] [place] [facility] [address] [id number] [place] [address] Mar, [facility] [place] [facility] [address] [id number] [place] [address] Mar, [facility] [place] [facility] [address] [id number] [place] [address] Mar, [facility] [place] [facility] [address] [id number] [place] [address] Mar, [facility] [place] [facility] [address] [id number] [place] [address] Mar, [facility] [address] [id number] [place] [address] Mar, [facility] [place] [facility] [address] [id number] [place] [address] Mar, [facility] [place] [facility] [address] [id number] [place] [address] Dec, [facility] [place] [facility] [address] [id number] [place] [address] Dec, [facility] [place] [facility] [address] [id number] [place] [address] Dec, [facility] [place] [facility] [address] [id number] [place] [address] Dec, [facility] [place] [facility] [address] [id number] [place] [address] Oct, [facility] [place] [facility] [address] [id number] [place] [address] Oct, [facility] [place] [facility] [address] [id number] [place] [address] May, [facility] [place] [facility] [address] [id number] [place] [address] Apr, [facility] [place] [facility] [address] [id number] [place] [address] Apr, [facility] [place] [facility] [address] [id number] [place] [address] December, [facility] [place] [facility] [address] [id number] [place] [address] Dec, [facility] [place] [facility] [address] [id number] [place] [address] Sep, [facility] [place] [facility] [address] [id number] [place] [address] Sep, [facility] [place] [facility] [address] [id number] [place] [address] Sep, [facility] [place] [facility] [address] [id number] [place] [address] Jul, [facility] [place] [facility] [address] [id number] [place] [address] 05 May, 2012 [facility] [place] [facility] [address] [id number] [place] [address] 05 May, 2012 [facility] [place] [facility] [address] [id number] [place] [address] 04 May, 2012 [facility] [place] [facility] [address] [id number] [place] [address] Apr, [facility] [place] [facility] [address] [id number] [place] [address] 15 Apr, 2012 [facility] [place] [facility] [address] [id number] [place] [address] 14 Apr, 2012 [facility] [place] [facility] [address] [id number] [place] [address] Mar, [facility] [place] [facility] [address] [id number] [place] [address] Mar, [facility] [place] [facility] [address] [id number] [place] [address] Dec, [facility] [place] [facility] [address] [id number] [place] [address] Oct, [facility] [place] [facility] [address] [id number] [place] [address] Oct, [facility] [place] [facility] [address] [id number] [place] [address] 21 Nov, 2011 [facility] [place] [facility] [address] [id number] [place] [address] 08 Nov, 2011 [facility] [place] [facility] [address] [id number] [address] 06 Nov, 2011 [facility] [id number] [address] 27 Aug, 2011 [facility] [address], [place] [address] 17 Sep, 2010 [facility] [id number], [place] [address] 13 May, 2010 [facility] [address], [place] [address] 17 Jul, 2009 [facility] [id number] [address] 16 Jul, 2009 [facility] [address], [place] [address] 10 May, 2009 IMMUNIZATIONS No Known Immunizations SOCIAL HISTORY Never Assessed REASON FOR VISIT PLAN OF CARE VITAL SIGNS MEDICATIONS No [...] node ablation w/ upgrade of device to pacemaker/defibrillator 09/13/16 (Dr. Hernández) Medical History Hyperbilirubinemia Medical History Increased ammonia level Medical History Increased ammonia level Surgical History Cardiac Ablation Surgical History Cardiac Bypasses x5 2012 Surgical History History of placement of internal cardiac defibrillator ([facility]) 02/2016 Surgical History implantable cardioverter/defibrillator KU 09/2016 Surgical History AV node ablation 09/2016 Hospitalization History Heart Monitoring 2012 Hospitalization History influenza A, Sepsis, Pneumonia, Elevated liver enzymes-[facility] 10/21/16 Hospitalization History fatigue, observation 11/17
--- OUTSIDE RECORDS SUMMARY | 2019-03-25 13:53 | XMS REPORT ---
Author Author SAPPHIRE FRANK [facility] Address [address] [place] [address] Care Team Providers Care Launch Check Out Name Role Phone SAPPHIRE FRANK Unavailable PROBLEMS Type Condition ICD9-CM Code DAB60-RE Code Onset Dates Condition Status SNOMED Code Problem Hypokalemia E87.6 Active 82193531 Problem Atypical atrial flutter I48.4 16 Apr, 2015 Active 1096408 Problem Essential hypertension I10 Active 76691098 Problem Hyperammonemia E72.20 Active 9706071 Problem Chronic gout, unspecified cause, unspecified site M1A.[id number] Active 11668977 Problem Nonsustained ventricular tachycardia I47.2 Active 514638112 Problem Typical atrial flutter I48.3 Active 409547915 Problem S/P CABG (coronary artery bypass graft) Z95.1 Active 633389127 Problem Dilated cardiomyopathy I42.0 Active 143254298 Problem Hx of renal calculi Z87.442 Active 176107486 Problem Hx of atrioventricular node ablation Z98.890 12 Sep, 2016 Active 797139201 Problem 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 12 Sep, 2016 Active 711929555 Problem Gait disturbance R26.9 Active 22662237 Problem Hyperbilirubinemia E80.6 Active 46979378 Problem Persistent atrial fibrillation I48.1 Active 513797765 Problem 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 Active 751073200734786 Problem Type 2 diabetes mellitus without complication E11.9 Active 749792872 Problem Acute on chronic systolic (congestive) heart failure I50.23 Active 126527796 Problem Non-ischemic cardiomyopathy I42.9 16 Apr, 2015 Active 50720560 Problem Coronary artery disease involving [place] coronary artery of [place] heart without angina pectoris I25.10 Active 4440247330386 Problem Chronic kidney disease, unspecified CKD stage N18.9 Active 333875619 Problem Risk for falls Z91.81 Active 050165863 Problem Chronic atrial fibrillation I48.2 Active 992488012 Problem Increased ammonia level R79.89 Active 767766472 ALLERGIES No Information ENCOUNTERS Encounter Location Date Diagnosis [place] [id number] [place] [address] 15 Mar, 2019 Eructation R14.2 and Type 2 diabetes mellitus without complication E11.9 [place] [id number] [place] [address] Jan, [place] [id number] [address] 06 Jan, 2019 Atypical atrial flutter I48.4 ; Coronary artery disease involving [place] coronary artery of [place] heart without angina pectoris I25.10 and Type 2 diabetes mellitus without complication E11.[address] [place] [address] 08 Oct, 2018 Dental examination Z01.20 and Caries K02.9 [place] [id number] [place] [address] 13 Oct, 2018 Type 2 diabetes mellitus without complication E11.9 [place] [id number] [address] 01 Oct, 2018 Hypokalemia E87.6 [place] [id number] [address] Sep, Hypokalemia E87.[address] [place] [address] Sep, [address] [address] 14 Sep, 2018 Dental examination Z01.20 and Caries K02.9 [place] [id number] [address] Aug, Hypokalemia E87.6 [place] [id number] [address] Aug, Type 2 diabetes mellitus without complication E11.9 and 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 [facility] [place] [address] [place] [address] Apr, Chronic atrial fibrillation I48.2 and Coronary artery disease involving [place] coronary artery of [place] heart without angina pectoris I25.10 [place] [address] [place] [id number] [address] Apr, Type 2 diabetes mellitus without complication E11.9 ; Hypokalemia E87.6 ; Chronic atrial fibrillation I48.2 and Dilated cardiomyopathy I42.0 [place] [address] [place] [id number] [address] December, [place] [address] [place] [id number] [address] December, [place] [address] [place] [id number] [address] Dec, Hyperammonemia E72.20 [place] [address] [place] [id number] [address] Oct, Increased ammonia level R79.89 ; Pleural effusion, left J90 ; Dilated cardiomyopathy I42.0 ; Weakness R53.1 ; Gait disturbance R26.9 and Diabetes mellitus E11.9 [place] [address] [place] [id number] [address] Oct, [place] [address] [place] [id number] [address] Oct, [facility] [place] [id number] [place] [address] Oct, [place] [address] [place] [id number] [address] Oct, Weakness R53.1 and Gait disturbance R26.9 [place] [address] [place] [id number] [address] Oct, Weakness R53.1 ; 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 ; Type 2 diabetes mellitus without complication E11.9 ; Chronic kidney disease, unspecified CKD stage N18.9 ; Chronic atrial fibrillation I48.2 and Hypokalemia E87.6 [place] [address] [address] 19 Oct, 2017 Dilated cardiomyopathy I42.0 ; 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 ; Type 2 diabetes mellitus without complication E11.9 and Chronic atrial fibrillation I48.2 [place] [address] [address] Oct, [place] [address] [address] Oct, Hypokalemia E87.6 ; Other specified hypotension I95.89 ; Type 2 diabetes mellitus without complication E11.9 and Weakness R53.[address] [address] Sep, Hypokalemia E87.6 [place] [address] [address] Sep, Chronic kidney disease, unspecified CKD stage N18.9 [place] [address] [address] Sep, Type 2 diabetes mellitus without complication E11.9 ; Cough R05 and Chronic kidney disease, unspecified CKD stage N18.9 [place] [address] [address] Aug, Hypokalemia E87.6 and Acute bronchitis, unspecified organism J20.9 [place] [address] [address] Aug, Gait disturbance R26.9 ; Risk for falls Z91.81 ; Acute bronchitis, unspecified organism J20.9 and Hypokalemia E87.6 [place] [address] [address] Aug, Hypokalemia E87.6 [facility] [place] [address] [place] [id number] [address] Jul, [facility] [place] [address] [address] Jul, Encounter for immunization Z23 [place] [address] [address] Jun, Encounter for immunization Z23 [facility] [place] [address] [address] Apr, Type 2 diabetes mellitus without complication E11.9 [place] [address] [address] Mar, [place] [address] [address] Jan, [place] [address] [address] Oct, 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 ; Weakness R53.1 and Gait disturbance R26.9 [place] [address] [address] 28 Oct, 2016 [facility] [address] [id number] 24 Oct, 2016 [place] [address] [address] 13 Oct, 2016 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 ; 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 and Typical atrial flutter I48.3 [place] [address] [address] 03 Oct, 2016 Hx of atrioventricular node ablation Z98.890 ; 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 and Type 2 diabetes mellitus with hypoglycemia without coma, without long-term current use of insulin E11.649 [place] [address] [address] Sep, Chronic gout, unspecified cause, unspecified site M1A.9XX0 [place] [address] [address] Sep, Type 2 diabetes mellitus without complication E11.9 [place] [address] [place] [id number] [address] Sep, Persistent atrial fibrillation I48.1 ; 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 and Non-ischemic cardiomyopathy I42.9 [place] [address] [place] [id number] [address] Sep, Persistent atrial fibrillation I48.1 ; 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 and Non-ischemic cardiomyopathy I42.9 [place] [address] [place] [id number] [address] Aug, 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 [place] [address] [place] [id number] [address] Jul, Type 2 diabetes mellitus without complication E11.9 [place] [address] [place] [id number] [address] Jul, Coronary artery disease involving [place] coronary artery of [place] heart without angina pectoris I25.10 ; Typical atrial flutter I48.3 ; 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 ; Acute on chronic systolic (congestive) heart failure I50.23 ; Dilated cardiomyopathy I42.0 and Status post internal cardiac defibrillator procedure Z95.810 [place] [address] [address] May, Coronary artery disease involving [place] coronary artery of [place] heart without angina pectoris I25.10 ; Dilated cardiomyopathy I42.0 and Typical atrial flutter I48.3 [place] [address] [address] Apr, [place] [address], [place] [address] Apr, Coronary artery disease involving [place] coronary artery of [place] heart without angina pectoris I25.10 ; Type 2 diabetes mellitus without complication E11.9 and 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 [place] [address] [place] [id number] [address] Apr, [place] [address] [place] [id number] [address] Apr, [place] [address] [place] [id number] [address] Apr, Dilated cardiomyopathy I42.0 ; Coronary artery disease involving [place] coronary artery of [place] heart without angina pectoris I25.10 ; Typical atrial flutter I48.3 and Automatic implantable cardioverter-defibrillator in situ Z95.810 [place] [address] [place] [id number] [address] Mar, Chronic gout, unspecified cause, unspecified site M1A.9XX0 [place] [address] [place] [id number] [address] Mar, [place] [address] [address] Jan, [place] [address] [address] Jan, Left arm swelling M79.89 ; Diabetes mellitus E11.9 and CAD (coronary artery disease) I25.10 [place] [address], [place] [address] Jan, Essential hypertension I10 ; 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 ; Type 2 diabetes mellitus without complication E11.9 and Coronary artery disease involving [place] coronary artery of [place] heart without angina pectoris I25.10 [place] [address] [address] Jan, [facility] [place] [address], [place] [address] Jan, [facility] [place] [address] [place] [id number] [address] Jan, [facility] [place] [address] [place] [id number] [address] December, [facility] [place] [address] [place] [id number] [address] December, [facility] [place] [address] [place] [id number] [address] December, Type 2 diabetes mellitus with complication, without long-term current use of insulin E11.8 ; Hyperlipidemia, unspecified hyperlipidemia type E78.5 and Neuropathy G62.9 [place] [address] [place] [id number] [address] Dec, [place] [address] [place] [id number] [address] Oct, [facility] [place] [address] [address] Oct, Dilated cardiomyopathy I42.0 ; CAD (coronary artery disease) I25.10 ; Typical atrial flutter I48.3 and Diabetes mellitus type II, controlled E11.9 [place] [address], [place] [address] Aug, Diabetes mellitus E11.9 and History of atrial flutter Z86.79 [place] [address], [place] [address] May, [place] [address] [place] [id number] [address] May, Hyperkalemia 276.7 and Atrial flutter 427.32 [place] [address], [place] [address] May, [facility] [place] [address] [place] [id number] [address] May, [facility] [place] [address], [place] [address] May, [facility] [place] [address], [place] [address] Apr, [facility] [place] [address] [place] [id number] [address] Apr, A-fib 427.31 ; Chronic ischemic heart disease, 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 ; Ischemic cardiomyopathy 414.8 ; Chronic combined systolic and diastolic heart failure 428.42 and Diabetes with hyperosmolarity, type II or unspecified type, uncontrolled 250.22 [facility] [place] [address] [place] [id number] [address] Apr, [facility] [place] [address] [place] [id number] [address] Apr, [facility] [place] [address] [place] [id number] [place] [address] Apr, [facility] [place] [address] [address] Mar, CAD (coronary artery disease) 414.00 ; Diabetes mellitus, type 2 250.00 and HTN (hypertension), benign 401.1 [facility] [place] [address], [place] [address] Mar, Diabetes mellitus, type II 250.00 and CAD (coronary artery disease) 414.00 [facility] [place] [address], [place] [address] Mar, [facility] [place] [address] [place] [id number] [address] Mar, [facility] [place] [address], [place] [address] Jan, [facility] [place] [address] [place] [address] December, [facility] [place] [facility] [address] [id number] [place] [address] December, [facility] [place] [facility] [address] [id number] [place] [address] Dec, [facility] [place] [facility] [address] [id number] [place] [address] Dec, [facility] [place] [facility] [address] [id number] [place] [address] Oct, [facility] [place] [facility] [address] [id number] [place] [address] Oct, [facility] [place] [facility] [address] [id number] [place] [address] Sep, [facility] [place] [facility] [address] [id number] [place] [address] Sep, [facility] [place] [facility] [address] [id number] [place] [address] Sep, [facility] [place] [facility] [address] [id number] [place] [address] Sep, [facility] [place] [facility] [address] [id number] [place] [address] Aug, [facility] [place] [facility] [address] [id number] [place] [address] Aug, [facility] [place] [facility] [address] [id number] [place] [address] Mar, [facility] [place] [facility] [address] [id number] [place] [address] Mar, [facility] [place] [facility] [address] [id number] [place] [address] Mar, [facility] [place] [facility] [address] [id number] [place] [address] Mar, [facility] [place] [facility] [address] [id number] [place] [address] Mar, [facility] [address] [id number] [place] [address] Mar, [facility] [place] [facility] [address] [id number] [place] [address] Mar, [facility] [place] [facility] [address] [id number] [place] [address] Dec, [facility] [place] [facility] [address] [id number] [place] [address] Dec, [facility] [place] [facility] [address] [id number] [place] [address] Dec, [facility] [place] [facility] [address] [id number] [place] [address] Dec, [facility] [place] [facility] [address] [id number] [place] [address] Oct, [facility] [place] [facility] [address] [id number] [place] [address] Oct, [facility] [place] [facility] [address] [id number] [place] [address] May, [facility] [place] [facility] [address] [id number] [place] [address] Apr, [facility] [place] [facility] [address] [id number] [place] [address] Apr, [facility] [place] [facility] [address] [id number] [place] [address] December, [facility] [place] [facility] [address] [id number] [place] [address] Dec, [facility] [place] [facility] [address] [id number] [place] [address] Sep, [facility] [place] [facility] [address] [id number] [place] [address] Sep, [facility] [place] [facility] [address] [id number] [place] [address] Sep, [facility] [place] [facility] [address] [id number] [place] [address] Jul, [facility] [place] [facility] [address] [id number] [place] [address] 05 May, 2012 [facility] [place] [facility] [address] [id number] [place] [address] 05 May, 2012 [facility] [place] [facility] [address] [id number] [place] [address] 04 May, 2012 [facility] [place] [facility] [address] [id number] [place] [address] Apr, [facility] [place] [facility] [address] [id number] [place] [address] 15 Apr, 2012 [facility] [place] [facility] [address] [id number] [place] [address] 14 Apr, 2012 [facility] [place] [facility] [address] [id number] [place] [address] Mar, [facility] [place] [facility] [address] [id number] [place] [address] Mar, [facility] [place] [facility] [address] [id number] [place] [address] Dec, [facility] [place] [facility] [address] [id number] [place] [address] Oct, [facility] [place] [facility] [address] [id number] [place] [address] Oct, [facility] [place] [facility] [address] [id number] [place] [address] 21 Nov, 2011 [facility] [place] [facility] [address] [id number] [place] [address] 08 Nov, 2011 [facility] [place] [facility] [address] [id number] [address] 06 Nov, 2011 [facility] [place] [id number] [address] 27 Aug, 2011 [facility] [place] [address], [place] [address] 17 Sep, 2010 [facility] [place] [id number], [place] [address] 13 May, 2010 [facility] [place] [address], [place] [address] 17 Jul, 2009 [facility] [place] [id number], [place] [address] 16 Jul, 2009 [facility] [place] [address], [place] [address] 10 May, 2009 IMMUNIZATIONS No Known Immunizations [...] History influenza A, Sepsis, Pneumonia, Elevated liver enzymes-[facility] 10/21/16 Hospitalization History fatigue, observation 11/17
--- OUTSIDE RECORDS SUMMARY | 2019-03-25 13:53 | XMS REPORT ---
Author Author Migration, Doctor Organization [facility] Address Unknown Phone Unavailable Care Team Providers Care Orthotic And Prosthetic Technician Name Role Phone Migration, Doctor Unavailable Unavailable PROBLEMS Type Condition ICD9-CM Code [id number] Code Onset Dates Condition Status SNOMED Code Problem Hypokalemia E87.6 Active 85183686 Problem Atypical atrial flutter I48.4 16 Apr, 2015 Active 9317376 Problem Essential hypertension I10 Active 13150995 Problem Hyperammonemia E72.20 Active 5453559 Problem Chronic gout, unspecified cause, unspecified site M1A.[id number] Active 05297422 Problem Nonsustained ventricular tachycardia I47.2 Active 108654507 Problem Typical atrial flutter I48.3 Active 274679478 Problem S/P CABG (coronary artery bypass graft) Z95.1 Active 390986315 Problem Dilated cardiomyopathy I42.0 Active 253399682 Problem Hx of renal calculi Z87.442 Active 642483252 Problem Hx of atrioventricular node ablation Z98.890 Sep, Active 791319438 Problem 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 Sep, Active 168664206 Problem Gait disturbance R26.9 Active 40794570 Problem Hyperbilirubinemia E80.6 Active 31152448 Problem Persistent atrial fibrillation I48.1 Active 196938390 Problem 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 Active 023507267143011 Problem Type 2 diabetes mellitus without complication E11.9 Active 996269000 Problem Acute on chronic systolic (congestive) heart failure I50.23 Active 006427853 Problem Non-ischemic cardiomyopathy I42.9 Apr, Active 58747350 Problem 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 Active 9517477177702 Problem Chronic kidney disease, unspecified CKD stage N18.9 Active 452268672 Problem Risk for falls Z91.81 Active 527812321 Problem Chronic atrial fibrillation I48.2 Active 790120404 Problem Increased ammonia level R79.89 Active 437008634 ALLERGIES No Information ENCOUNTERS Encounter Location Date Diagnosis [address] [place] [address] 08 Oct, 2018 Dental examination Z01.20 and Caries K02.9 [place] [address] [address] 13 Oct, 2018 Type 2 diabetes mellitus without complication E11.9 [place] [address] [place] [id number] [place] [address] 01 Oct, 2018 Hypokalemia E87.6 [place] [address] [place] [id number] [place] [address] 28 Sep, 2018 Hypokalemia E87.6 [facility] [place] [address] 16 Sep, [address] [address] 14 Sep, 2018 Dental examination Z01.20 and Caries K02.9 [place] [address] [place] [id number] [place] [address] Aug, Hypokalemia E87.6 [place] [address] [place] [id number] [place] [address] 17 Aug, 2018 Type 2 diabetes mellitus without complication E11.9 and 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 [place] [id number] [place] [address] Apr, Chronic atrial fibrillation I48.2 and 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 [place] [id number] [place] [address] Apr, Type 2 diabetes mellitus without complication E11.9 ; Hypokalemia E87.6 ; Chronic atrial fibrillation I48.2 and Dilated cardiomyopathy I42.0 [place] [address] [place] [id number] [place] [address] December, [place] [address] [place] [id number] [place] [address] December, [place] [address] [place] [id number] [place] [address] Dec, Hyperammonemia E72.20 [facility] [address] [place] [id number] [place] [address] Oct, Increased ammonia level R79.89 ; Pleural effusion, left J90 ; Dilated cardiomyopathy I42.0 ; Weakness R53.1 ; Gait disturbance R26.9 and Diabetes mellitus E11.9 [place] [address] [place] [id number] [place] [address] Oct, [place] [address] [place] [id number] [place] [address] Oct, [place] [address] [place] [id number] [place] [address] Oct, [place] [address] [place] [id number] [place] [address] Oct, Weakness R53.1 and Gait disturbance R26.9 [place] [address] [place] [id number] [place] [address] Oct, Weakness R53.1 ; 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 ; Type 2 diabetes mellitus without complication E11.9 ; Chronic kidney disease, unspecified CKD stage N18.9 ; Chronic atrial fibrillation I48.2 and Hypokalemia E87.6 [place] [address] [place] [id number] [place] [address] Oct, Dilated cardiomyopathy I42.0 ; 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 ; Type 2 diabetes mellitus without complication E11.9 and Chronic atrial fibrillation I48.2 [place] [address] [place] [id number] [place] [address] Oct, [place] [address] [place] [id number] [place] [address] Oct, Hypokalemia E87.6 ; Other specified hypotension I95.89 ; Type 2 diabetes mellitus without complication E11.9 and Weakness R53.1 [place] [address] [address] Sep, Hypokalemia E87.6 [place] [address] [address] Sep, Chronic kidney disease, unspecified CKD stage N18.9 [place] [address] [address] Sep, Type 2 diabetes mellitus without complication E11.9 ; Cough R05 and Chronic kidney disease, unspecified CKD stage N18.9 [place] [address] [address] Aug, Hypokalemia E87.6 and Acute bronchitis, unspecified organism J20.9 [place] [address] [address] Aug, Gait disturbance R26.9 ; Risk for falls Z91.81 ; Acute bronchitis, unspecified organism J20.9 and Hypokalemia E87.6 [place] [address] [address] Aug, Hypokalemia E87.6 [place] [address] [address] Jul, [place] [address] [address] Jul, Encounter for immunization Z23 [place] [address] [address] Jun, Encounter for immunization Z23 [place] [address] [address] Apr, Type 2 diabetes mellitus without complication E11.9 [place] [address] [address] Mar, [facility] [id number] [place] [address] Jan, [place] [address] [place] [id number] [place] [address] Oct, 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 ; Weakness R53.1 and Gait disturbance R26.9 [place] [address] [address] Oct, [facility] [address] [id number] Oct, [place] [address] [place] [id number] [place] [address] Oct, 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 ; 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 and Typical atrial flutter I48.3 [place] [address] [place] [id number] [place] [address] 03 Oct, 2016 Hx of atrioventricular node ablation Z98.890 ; 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 and Type 2 diabetes mellitus with hypoglycemia without coma, without long-term current use of insulin E11.649 [place] [address] [place] [address] Sep, Chronic gout, unspecified cause, unspecified site M1A.9XX0 [place] [address] [place] [address] Sep, Type 2 diabetes mellitus without complication E11.9 [place] [address] [address] Sep, Persistent atrial fibrillation I48.1 ; 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 and Non-ischemic cardiomyopathy I42.9 [place] [address] [place] [id number] [place] [address] Sep, Persistent atrial fibrillation I48.1 ; 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 and Non-ischemic cardiomyopathy I42.9 [place] [id number] [place] [address] Aug, 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 [place] [address] [place] [id number] [place] [address] Jul, Type 2 diabetes mellitus without complication E11.9 [place] [address] [place] [id number] [place] [address] Jul, 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 ; Typical atrial flutter I48.3 ; 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 ; Acute on chronic systolic (congestive) heart failure I50.23 ; Dilated cardiomyopathy I42.0 and Status post internal cardiac defibrillator procedure Z95.810 [place] [address] [place] [id number] [place] [address] May, 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 ; Dilated cardiomyopathy I42.0 and Typical atrial flutter I48.3 [place] [address] [place] [address] Apr, [place] [address] [place] [address] Apr, 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 ; Type 2 diabetes mellitus without complication E11.9 and 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 [place] [address] [address] Apr, [place] [address] [place] [id number] [place] [address] Apr, [place] [address] [place] [id number] [place] [address] Apr, Dilated cardiomyopathy I42.0 ; 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 ; Typical atrial flutter I48.3 and Automatic implantable cardioverter-defibrillator in situ Z95.810 [place] [address] [place] [id number] [place] [address] Mar, Chronic gout, unspecified cause, unspecified site M1A.9XX0 [place] [address] [place] [id number] [place] [address] Mar, [place] [address] [place] [id number] [place] [address] Jan, [place] [address] [place] [id number] [place] [address] Jan, Left arm swelling M79.89 ; Diabetes mellitus E11.9 and CAD (coronary artery disease) I25.10 [place] [address] [place] [id number] [place] [address] Jan, Essential hypertension I10 ; 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 ; Type 2 diabetes mellitus without complication E11.9 and 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 [place] [address] [place] [id number] [place] [address] Jan, [place] [address] [place] [id number] [place] [address] Jan, [place] [address] [place] [id number] [place] [address] Jan, [place] [address] [place] [id number] [place] [address] December, [place] [address] [place] [id number] [place] [address] December, [place] [address] [place] [address] December, Type 2 diabetes mellitus with complication, without long-term current use of insulin E11.8 ; Hyperlipidemia, unspecified hyperlipidemia type E78.5 and Neuropathy G62.9 [place] [address] [place] [id number] [place] [address] Dec, [place] [address] [place] [id number] [place] [address] Oct, [place] [address] [address] Oct, Dilated cardiomyopathy I42.0 ; CAD (coronary artery disease) I25.10 ; Typical atrial flutter I48.3 and Diabetes mellitus type II, controlled E11.[address] [address] Aug, Diabetes mellitus E11.9 and History of atrial flutter Z86.[address] [address] May, [place] [address] [address] May, Hyperkalemia 276.7 and Atrial flutter 427.32 [place] [id number] [place] [address] May, [place] [address] [place] [id number] [place] [address] May, [place] [address] [place] [id number] [place] [address] May, [place] [address] [place] [id number] [place] [address] Apr, [place] [address] [place] [id number] [place] [address] Apr, A-fib 427.31 ; Chronic ischemic heart disease, 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 ; Ischemic cardiomyopathy 414.8 ; Chronic combined systolic and diastolic heart failure 428.42 and Diabetes with hyperosmolarity, type II or unspecified type, uncontrolled 250.22 [place] [address] [place] [address] Apr, [facility] [address] [id number] [address] Apr, [facility] [address] [id number] [address] Apr, [facility] [address] [facility] [id number] [address] Mar, CAD (coronary artery disease) 414.00 ; Diabetes mellitus, type 2 250.00 and HTN (hypertension), benign 401.1 [facility] [address] [id number] [address] Mar, Diabetes mellitus, type II 250.00 and CAD (coronary artery disease) 414.00 [facility] [address] [facility] [id number] [address] Mar, [facility] [address] [id number], [place] [address] Mar, [facility] [address] [place] [id number] [address] Jan, [facility] [address] [place] [id number] [address] December, [facility] [address] [place] [id number] [address] December, [facility] [address] [facility] [id number] [address] Dec, [facility] [address] [id number] [place] [address] Dec, [facility] [address] [place] [id number] [address] Oct, [facility] [address] [place] [id number] [address] Oct, [facility] [address] [facility] [id number], [place] [address] Sep, [facility] [place] [facility] [address] [id number] [place] [address] Sep, [facility] [place] [facility] [address] [id number] [place] [address] Sep, [facility] [place] [facility] [address] [id number] [place] [address] Sep, [facility] [place] [facility] [address] [id number] [place] [address] Aug, [facility] [place] [facility] [address] [id number] [place] [address] Aug, [facility] [place] [facility] [address] [id number] [place] [address] Mar, [facility] [place] [facility] [address] [id number] [place] [address] Mar, [facility] [place] [facility] [address] [id number] [place] [address] Mar, [facility] [place] [facility] [address] [id number] [place] [address] Mar, [facility] [place] [facility] [address] [id number] [place] [address] Mar, [facility] [place] [facility] [address] [id number] [place] [address] Mar, [facility] [place] [facility] [address] [id number] [place] [address] Mar, [facility] [place] [facility] [address] [id number] [place] [address] Dec, [facility] [place] [facility] [address] [id number] [place] [address] Dec, [facility] [place] [facility] [address] [id number] [place] [address] Dec, [facility] [place] [facility] [address] [id number] [place] [address] Dec, [facility] [place] [facility] [address] [id number] [place] [address] Oct, [facility] [place] [facility] [address] [id number] [place] [address] Oct, [facility] [place] [facility] [address] [id number] [place] [address] May, [facility] [place] [facility] [address] [id number] [place] [address] Apr, [facility] [place] [facility] [address] [id number] [place] [address] Apr, [facility] [place] [facility] [address] [id number] [place] [address] December, [facility] [place] [facility] [address] [id number] [place] [address] Dec, [facility] [place] [facility] [address] [id number] [place] [address] Sep, [facility] [place] [facility] [address] [id number] [place] [address] Sep, [facility] [place] [facility] [address] [id number] [place] [address] Sep, [facility] [place] [facility] [address] [id number] [place] [address] Jul, [facility] [place] [facility] [address] [id number] [place] [address] May, [facility] [place] [facility] [address] [id number] [place] [address] May, [facility] [place] [facility] [address] [id number] [place] [address] May, [facility] [place] [facility] [address] [id number] [place] [address] 27 Apr, 2012 [facility] [place] [facility] [address] [id number] [place] [address] 15 Apr, 2012 [facility] [place] [facility] [address] [id number] [place] [address] 14 Apr, 2012 [facility] [place] [facility] [address] [id number] [place] [address] 13 Mar, 2012 [facility] [place] [facility] [address] [id number] [place] [address] 13 Mar, 2012 [facility] [place] [facility] [address] [id number] [place] [address] Dec, [facility] [place] [facility] [address] [id number] [place] [address] 28 Nov, 2011 [facility] [place] [facility] [address] [id number] [place] [address] Oct, [facility] [place] [facility] [address] [id number] [place] [address] Oct, [facility] [place] [facility] [address] [id number] [place] [address] Oct, [facility] [place] [facility] [address] [id number] [place] [address] Oct, [facility] [place] [facility] [address] [id number] [place] [address] Aug, [facility] [place] [facility] [address] [id number] [place] [address] Sep, [facility] [place] [facility] [address] [id number] [place] [address] May, [facility] [place] [facility] [address] [id number] [place] [address] 17 Jul, 2009 [facility] [place] [facility] [address] [id number] [place] [address] 16 Jul, 2009 [facility] [place] [facility] [address] [facility] [id number] [place] [address] 10 May, 2009 IMMUNIZATIONS No Known Immunizations SOCIAL HISTORY Never Assessed REASON FOR VISIT [place] [place] VITAL SIGNS MEDICATIONS Unknown [...] History influenza A, Sepsis, Pneumonia, Elevated liver enzymes-[facility] 10/21/16 Hospitalization History fatigue, observation 11/17
--- OUTSIDE RECORDS SUMMARY | 2019-03-25 13:54 | XMS REPORT ---
Author Author Migration, Doctor Organization [facility] Address Unknown Phone Unavailable Care Team Providers Care Product Development Technician Name Role Phone Migration, Doctor Unavailable Unavailable PROBLEMS Type Condition ICD9-CM Code [id number] Code Onset Dates Condition Status SNOMED Code Problem Hypokalemia E87.6 Active 30993597 Problem Atypical atrial flutter I48.4 16 Apr, 2015 Active 4566700 Problem Essential hypertension I10 Active 35557442 Problem Hyperammonemia E72.20 Active 7769553 Problem Chronic gout, unspecified cause, unspecified site M1A.9XX0 Active 27629666 Problem Nonsustained ventricular tachycardia I47.2 Active 642381397 Problem Typical atrial flutter I48.3 Active 842900664 Problem S/P CABG (coronary artery bypass graft) Z95.1 Active 752061114 Problem Dilated cardiomyopathy I42.0 Active 298674050 Problem Hx of renal calculi Z87.442 Active 957675304 Problem Hx of atrioventricular node ablation Z98.890 Sep, Active 571372752 Problem 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 Sep, Active 034054938 Problem Gait disturbance R26.9 Active 49862019 Problem Hyperbilirubinemia E80.6 Active 23372206 Problem Persistent atrial fibrillation I48.1 Active 746276393 Problem 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 Active 119183425960810 Problem Type 2 diabetes mellitus without complication E11.9 Active 933357989 Problem Acute on chronic systolic (congestive) heart failure I50.23 Active 656659343 Problem Non-ischemic cardiomyopathy I42.9 Apr, Active 93859710 Problem 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 Active 2700547788493 Problem Chronic kidney disease, unspecified CKD stage N18.9 Active 999164849 Problem Risk for falls Z91.81 Active 196819822 Problem Chronic atrial fibrillation I48.2 Active 312981664 Problem Increased ammonia level R79.89 Active 169623207 ALLERGIES No Information ENCOUNTERS Encounter Location Date Diagnosis [address] [place] [address] 08 Oct, 2018 Dental examination Z01.20 and Caries K02.9 [place] [address] [address] 13 Oct, 2018 Type 2 diabetes mellitus without complication E11.9 [place] [address] [place] [id number] [place] [address] 01 Oct, 2018 Hypokalemia E87.6 [place] [address] [place] [id number] [place] [address] 28 Sep, 2018 Hypokalemia E87.[address] 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 [place] [id number] [place] [address] Apr, Chronic atrial fibrillation I48.2 and 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 [place] [address] [place] [address] Apr, Type 2 diabetes mellitus without complication E11.9 ; Hypokalemia E87.6 ; Chronic atrial fibrillation I48.2 and Dilated cardiomyopathy I42.0 [place] [address] [place] [id number] [place] [address] December, [place] [address] [place] [id number] [place] [address] December, [place] [address] [place] [id number] [place] [address] Dec, Hyperammonemia E72.20 [facility] [address] [place] [id number] [place] [address] Oct, Increased ammonia level R79.89 ; Pleural effusion, left J90 ; Dilated cardiomyopathy I42.0 ; Weakness R53.1 ; Gait disturbance R26.9 and Diabetes mellitus E11.9 [place] [address] [place] [id number] [place] [address] Oct, [place] [address] [place] [id number] [place] [address] Oct, [place] [address] [place] [id number] [place] [address] Oct, [place] [address] [place] [id number] [place] [address] Oct, Weakness R53.1 and Gait disturbance R26.9 [place] [address] [place] [id number] [place] [address] Oct, Weakness R53.1 ; 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 ; Type 2 diabetes mellitus without complication E11.9 ; Chronic kidney disease, unspecified CKD stage N18.9 ; Chronic atrial fibrillation I48.2 and Hypokalemia E87.6 [place] [address] [place] [id number] [place] [address] Oct, Dilated cardiomyopathy I42.0 ; 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 ; Type 2 diabetes mellitus without complication E11.9 and Chronic atrial fibrillation I48.2 [place] [address] [place] [id number] [place] [address] Oct, [place] [address] [place] [id number] [place] [address] Oct, Hypokalemia E87.6 ; Other specified hypotension I95.89 ; Type 2 diabetes mellitus without complication E11.9 and Weakness R53.1 [place] [address] [address] Sep, Hypokalemia E87.6 [place] [address] [address] Sep, Chronic kidney disease, unspecified CKD stage N18.9 [place] [address] [address] Sep, Type 2 diabetes mellitus without complication E11.9 ; Cough R05 and Chronic kidney disease, unspecified CKD stage N18.9 [place] [address] [address] Aug, Hypokalemia E87.6 and Acute bronchitis, unspecified organism J20.9 [place] [address] [address] Aug, Gait disturbance R26.9 ; Risk for falls Z91.81 ; Acute bronchitis, unspecified organism J20.9 and Hypokalemia E87.6 [place] [address] [address] Aug, Hypokalemia E87.6 [place] [address] [address] Jul, [place] [address] [address] Jul, Encounter for immunization Z23 [place] [address] [address] Jun, Encounter for immunization Z23 [place] [address] [address] Apr, Type 2 diabetes mellitus without complication E11.9 [place] [address] [address] Mar, [facility] [address] [place] [address] Jan, [place] [address] [place] [id number] [place] [address] Oct, 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 ; Weakness R53.1 and Gait disturbance R26.9 [place] [address] [address] Oct, [facility] [address] [id number] Oct, [place] [address] [place] [id number] [place] [address] Oct, 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 ; 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 and Typical atrial flutter I48.3 [place] [address] [place] [id number] [place] [address] 03 Oct, 2016 Hx of atrioventricular node ablation Z98.890 ; 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 and Type 2 diabetes mellitus with hypoglycemia without coma, without long-term current use of insulin E11.649 [place] [address] [place] [address] Sep, Chronic gout, unspecified cause, unspecified site M1A.9XX0 [place] [address] [place] [address] Sep, Type 2 diabetes mellitus without complication E11.9 [place] [address] [address] Sep, Persistent atrial fibrillation I48.1 ; 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 and Non-ischemic cardiomyopathy I42.9 [place] [address] [place] [id number] [place] [address] Sep, Persistent atrial fibrillation I48.1 ; 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 and Non-ischemic cardiomyopathy I42.9 [place] [address] [place] [address] Aug, 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 [place] [address] [place] [id number] [place] [address] Jul, Type 2 diabetes mellitus without complication E11.9 [place] [address] [place] [id number] [place] [address] Jul, 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 ; Typical atrial flutter I48.3 ; 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 ; Acute on chronic systolic (congestive) heart failure I50.23 ; Dilated cardiomyopathy I42.0 and Status post internal cardiac defibrillator procedure Z95.810 [place] [address] [place] [id number] [place] [address] May, 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 ; Dilated cardiomyopathy I42.0 and Typical atrial flutter I48.3 [place] [address] [place] [address] Apr, [place] [address] [place] [address] Apr, 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 ; Type 2 diabetes mellitus without complication E11.9 and 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 [place] [address], [place] [address] Apr, [place] [address] [place] [id number] [place] [address] Apr, [place] [address] [place] [id number] [place] [address] Apr, Dilated cardiomyopathy I42.0 ; 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 ; Typical atrial flutter I48.3 and Automatic implantable cardioverter-defibrillator in situ Z95.810 [place] [address] [place] [id number] [place] [address] Mar, Chronic gout, unspecified cause, unspecified site M1A.9XX0 [place] [address] [place] [id number] [place] [address] Mar, [place] [address] [place] [id number] [place] [address] Jan, [place] [address] [place] [id number] [place] [address] Jan, Left arm swelling M79.89 ; Diabetes mellitus E11.9 and CAD (coronary artery disease) I25.10 [place] [address] [place] [id number] [place] [address] Jan, Essential hypertension I10 ; 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 ; Type 2 diabetes mellitus without complication E11.9 and 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 [place] [address] [place] [id number] [place] [address] Jan, [place] [address] [place] [id number] [place] [address] Jan, [place] [address] [place] [id number] [place] [address] Jan, [place] [address] [place] [id number] [place] [address] December, [place] [address] [place] [id number] [place] [address] December, [place] [address] [place] [address] December, Type 2 diabetes mellitus with complication, without long-term current use of insulin E11.8 ; Hyperlipidemia, unspecified hyperlipidemia type E78.5 and Neuropathy G62.9 [place] [address] [place] [id number] [place] [address] Dec, [place] [address] [place] [id number] [place] [address] Oct, [place] [address] [address] Oct, Dilated cardiomyopathy I42.0 ; CAD (coronary artery disease) I25.10 ; Typical atrial flutter I48.3 and Diabetes mellitus type II, controlled E11.[address] [address] Aug, Diabetes mellitus E11.9 and History of atrial flutter Z86.[address] [address] May, [place] [address] [address] May, Hyperkalemia 276.7 and Atrial flutter 427.32 [place] [id number] [place] [address] May, [place] [address] [place] [id number] [place] [address] May, [place] [address] [place] [id number] [place] [address] May, [place] [address] [place] [id number] [place] [address] Apr, [place] [address] [place] [id number] [place] [address] Apr, A-fib 427.31 ; Chronic ischemic heart disease, 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 ; Ischemic cardiomyopathy 414.8 ; Chronic combined systolic and diastolic heart failure 428.42 and Diabetes with hyperosmolarity, type II or unspecified type, uncontrolled 250.22 [place] [address] [place] [address] Apr, [facility] [address] [id number], [place] [address] Apr, [facility] [address] [id number], [place] [address] Apr, [facility] [address] [facility] [id number], [place] [address] Mar, CAD (coronary artery disease) 414.00 ; Diabetes mellitus, type 2 250.00 and HTN (hypertension), benign 401.1 [facility] [address] [id number], [place] [address] Mar, Diabetes mellitus, type II 250.00 and CAD (coronary artery disease) 414.00 [facility] [address] [facility] [id number], [place] [address] Mar, [facility] [address] [id number], [place] [address] Mar, [facility] [address] [place] [id number] [address] Jan, [facility] [address] [place] [id number] [address] December, [facility] [address] [place] [id number] [address] December, [facility] [address] [facility] [id number], [place] [address] Dec, [facility] [address] [id number] [place] [address] Dec, [facility] [address] [place] [id number], [place] [address] Oct, [facility] [address] [place] [id number] [address] Oct, [facility] [address] [facility] [id number], [place] [address] Sep, [facility] [place] [facility] [address] [id number] [place] [address] Sep, [facility] [place] [facility] [address] [id number] [place] [address] Sep, [facility] [place] [facility] [address] [id number] [place] [address] Sep, [facility] [place] [facility] [address] [id number] [place] [address] Aug, [facility] [place] [facility] [address] [id number] [place] [address] Aug, [facility] [place] [facility] [address] [id number] [place] [address] Mar, [facility] [place] [facility] [address] [id number] [place] [address] Mar, [facility] [place] [facility] [address] [id number] [place] [address] Mar, [facility] [place] [facility] [address] [id number] [place] [address] Mar, [facility] [place] [facility] [address] [id number] [place] [address] Mar, [facility] [place] [facility] [address] [id number] [place] [address] Mar, [facility] [place] [facility] [address] [id number] [place] [address] Mar, [facility] [place] [facility] [address] [id number] [place] [address] Dec, [facility] [place] [facility] [address] [id number] [place] [address] Dec, [facility] [place] [facility] [address] [id number] [place] [address] Dec, [facility] [place] [facility] [address] [id number] [place] [address] Dec, [facility] [place] [facility] [address] [id number] [place] [address] Oct, [facility] [place] [facility] [address] [id number] [place] [address] Oct, [facility] [place] [facility] [address] [id number] [place] [address] May, [facility] [place] [facility] [address] [id number] [place] [address] Apr, [facility] [place] [facility] [address] [id number] [place] [address] Apr, [facility] [place] [facility] [address] [id number] [place] [address] December, [facility] [place] [facility] [address] [id number] [place] [address] Dec, [facility] [place] [facility] [address] [id number] [place] [address] Sep, [facility] [place] [facility] [address] [id number] [place] [address] Sep, [facility] [place] [facility] [address] [id number] [place] [address] Sep, [facility] [place] [facility] [address] [id number] [place] [address] Jul, [facility] [place] [facility] [address] [id number] [place] [address] May, [facility] [place] [facility] [address] [id number] [place] [address] May, [facility] [place] [facility] [address] [id number] [place] [address] May, [facility] [place] [facility] [address] [id number] [place] [address] 27 Apr, 2012 [facility] [place] [facility] [address] [id number] [place] [address] 15 Apr, 2012 [facility] [place] [facility] [address] [id number] [place] [address] 14 Apr, 2012 [facility] [place] [facility] [address] [id number] [place] [address] 13 Mar, 2012 [facility] [place] [facility] [address] [id number] [place] [address] 13 Mar, 2012 [facility] [place] [facility] [address] [id number] [place] [address] Dec, [facility] [place] [facility] [address] [id number] [place] [address] 28 Nov, 2011 [facility] [place] [facility] [address] [id number] [place] [address] Oct, [facility] [place] [facility] [address] [id number] [place] [address] Oct, [facility] [place] [facility] [address] [id number] [place] [address] Oct, [facility] [place] [facility] [address] [id number] [place] [address] Oct, [facility] [place] [facility] [address] [id number] [place] [address] Aug, [facility] [place] [facility] [address] [id number] [place] [address] Sep, [facility] [place] [facility] [address] [id number] [place] [address] May, [facility] [place] [facility] [address] [id number] [place] [address] 17 Jul, 2009 [facility] [place] [facility] [address] [id number] [place] [address] 16 Jul, 2009 [facility] [place] [facility] [address] [facility] [id number] [place] [address] 10 May, 2009 IMMUNIZATIONS No Known Immunizations SOCIAL HISTORY Never Assessed REASON FOR VISIT EMR-[facility] PLAN OF CARE VITAL SIGNS MEDICATIONS Unknown [...] History influenza A, Sepsis, Pneumonia, Elevated liver enzymes-[facility] 10/21/16 Hospitalization History fatigue, observation 11/17
--- OUTSIDE RECORDS SUMMARY | 2019-03-25 13:54 | XMS REPORT ---
Author Author SAPPHIRE FRANK [facility] Address [address] [place] [address] Care Team Providers Care Unix Architect Name Role Phone SAPPHIRE FRANK Unavailable PROBLEMS Type Condition ICD9-CM Code NFR33-VF Code Onset Dates Condition Status SNOMED Code Problem Hypokalemia E87.6 Active 86026849 Problem Atypical atrial flutter I48.4 16 Apr, 2015 Active 9494365 Problem Essential hypertension I10 Active 09058131 Problem Hyperammonemia E72.20 Active 1056097 Problem Chronic gout, unspecified cause, unspecified site M1A.9XX0 Active 63631995 Problem Nonsustained ventricular tachycardia I47.2 Active 548124248 Problem Typical atrial flutter I48.3 Active 508593671 Problem S/P CABG (coronary artery bypass graft) Z95.1 Active 203343455 Problem Dilated cardiomyopathy I42.0 Active 279885110 Problem Hx of renal calculi Z87.442 Active 079484523 Problem Hx of atrioventricular node ablation Z98.890 12 Sep, 2016 Active 340164804 Problem 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 12 Sep, 2016 Active 317529092 Problem Gait disturbance R26.9 Active 99545389 Problem Hyperbilirubinemia E80.6 Active 81388950 Problem Persistent atrial fibrillation I48.1 Active 355780745 Problem 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 Active 662608534322412 Problem Type 2 diabetes mellitus without complication E11.9 Active 226075955 Problem Acute on chronic systolic (congestive) heart failure I50.23 Active 394167315 Problem Non-ischemic cardiomyopathy I42.9 16 Apr, 2015 Active 18447371 Problem Coronary artery disease involving [place] coronary artery of [place] heart without angina pectoris I25.10 Active 4013108389699 Problem Chronic kidney disease, unspecified CKD stage N18.9 Active 081438504 Problem Risk for falls Z91.81 Active 221901922 Problem Chronic atrial fibrillation I48.2 Active 008867609 Problem Increased ammonia level R79.89 Active 043598513 ALLERGIES No Information ENCOUNTERS Encounter Location Date Diagnosis [address] [place] [address] 08 Oct, 2018 Dental examination Z01.20 and Caries K02.9 [place] [address] [address] 13 Oct, 2018 Type 2 diabetes mellitus without complication E11.9 [place] [address] [place] [id number] [place] [address] Oct, Hypokalemia E87.[address] [address] 28 Sep, 2018 Hypokalemia E87.6 [facility] [address] [place] [address] 16 Sep, [address] [address] 14 Sep, 2018 Dental examination Z01.20 and Caries K02.9 [place] [address] [address] Aug, Hypokalemia E87.6 [place] [address] [address] Aug, Type 2 diabetes mellitus without complication E11.9 and 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 [place] [address] [place] [id number] [place] [address] Apr, Chronic atrial fibrillation I48.2 and Coronary artery disease involving [place] coronary artery of [place] heart without angina pectoris I25.10 [place] [address] [place] [id number] [place] [address] Apr, Type 2 diabetes mellitus without complication E11.9 ; Hypokalemia E87.6 ; Chronic atrial fibrillation I48.2 and Dilated cardiomyopathy I42.0 [place] [address] [place] [address] December, [facility] [address] [place] [id number] [place] [address] December, [facility] [address] [place] [id number] [place] [address] Dec, Hyperammonemia E72.20 [place] [address] [place] [id number] [place] [address] Oct, Increased ammonia level R79.89 ; Pleural effusion, left J90 ; Dilated cardiomyopathy I42.0 ; Weakness R53.1 ; Gait disturbance R26.9 and Diabetes mellitus E11.9 [place] [address] [place] [id number] [place] [address] Oct, [place] [address] [place] [id number] [place] [address] Oct, [place] [address] [place] [id number] [place] [address] Oct, [facility] [address] [place] [id number] [place] [address] Oct, Weakness R53.1 and Gait disturbance R26.9 [place] [address] [place] [id number] [place] [address] Oct, Weakness R53.1 ; 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 ; Type 2 diabetes mellitus without complication E11.9 ; Chronic kidney disease, unspecified CKD stage N18.9 ; Chronic atrial fibrillation I48.2 and Hypokalemia E87.6 [place] [address] [place] [id number] [place] [address] Oct, Dilated cardiomyopathy I42.0 ; 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 ; Type 2 diabetes mellitus without complication E11.9 and Chronic atrial fibrillation I48.2 [place] [address] [place] [id number] [place] [address] Oct, [place] [address] [place] [id number] [place] [address] 05 Oct, 2017 Hypokalemia E87.6 ; Other specified hypotension I95.89 ; Type 2 diabetes mellitus without complication E11.9 and Weakness R53.1 [place] [address] [place] [id number] [place] [address] Sep, Hypokalemia E87.6 [place] [address] [address] Sep, Chronic kidney disease, unspecified CKD stage N18.9 [place] [address] [address] Sep, Type 2 diabetes mellitus without complication E11.9 ; Cough R05 and Chronic kidney disease, unspecified CKD stage N18.9 [place] [address] [place] [id number] [place] [address] Aug, Hypokalemia E87.6 and Acute bronchitis, unspecified organism J20.9 [place] [address] [place] [id number] [place] [address] Aug, Gait disturbance R26.9 ; Risk for falls Z91.81 ; Acute bronchitis, unspecified organism J20.9 and Hypokalemia E87.6 [place] [address] [place] [id number] [place] [address] Aug, Hypokalemia E87.6 [place] [address] [place] [id number] [place] [address] Jul, [place] [address] [place] [id number] [place] [address] Jul, Encounter for immunization Z23 [place] [address] [place] [id number] [place] [address] Jun, Encounter for immunization Z23 [place] [address] [place] [id number] [place] [address] Apr, Type 2 diabetes mellitus without complication E11.9 [place] [address] [address] Mar, [place] [address] [place] [id number] [place] [address] Jan, [place] [address] [place] [id number] [place] [address] Oct, 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 ; Weakness R53.1 and Gait disturbance R26.9 [place] [address] [place] [id number] [place] [address] Oct, [place] [address] [place] [id number] [place] [id number] Oct, [place] [address] [place] [id number] [place] [address] Oct, 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 ; 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 and Typical atrial flutter I48.3 [place] [address] [place] [address] 03 Oct, 2016 Hx of atrioventricular node ablation Z98.890 ; 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 and Type 2 diabetes mellitus with hypoglycemia without coma, without long-term current use of insulin E11.649 [place] [address] [place] [address] Sep, Chronic gout, unspecified cause, unspecified site M1A.9XX0 [place] [address] [place] [address] Sep, Type 2 diabetes mellitus without complication E11.9 [place] [address] [place] [address] Sep, Persistent atrial fibrillation I48.1 ; 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 and Non-ischemic cardiomyopathy I42.9 [place] [address], [place] [address] 05 Sep, 2016 Persistent atrial fibrillation I48.1 ; 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 and Non-ischemic cardiomyopathy I42.9 [facility] [address], [place] [address] 05 Aug, 2016 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 [place] [address] [place] [id number] [place] [address] Jul, Type 2 diabetes mellitus without complication E11.9 [place] [address] [place] [id number] [place] [address] Jul, Coronary artery disease involving [place] coronary artery of [place] heart without angina pectoris I25.10 ; Typical atrial flutter I48.3 ; 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 ; Acute on chronic systolic (congestive) heart failure I50.23 ; Dilated cardiomyopathy I42.0 and Status post internal cardiac defibrillator procedure Z95.810 [place] [address] [place] [address] May, Coronary artery disease involving [place] coronary artery of [place] heart without angina pectoris I25.10 ; Dilated cardiomyopathy I42.0 and Typical atrial flutter I48.3 [place] [address], [place] [address] Apr, [facility] [address] [place] [address] Apr, Coronary artery disease involving [place] coronary artery of [place] heart without angina pectoris I25.10 ; Type 2 diabetes mellitus without complication E11.9 and 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 [place] [address] [place] [id number] [place] [address] Apr, [place] [address], [place] [address] Apr, [place] [address] [place] [id number] [address] Apr, Dilated cardiomyopathy I42.0 ; Coronary artery disease involving [place] coronary artery of [place] heart without angina pectoris I25.10 ; Typical atrial flutter I48.3 and Automatic implantable cardioverter-defibrillator in situ Z95.810 [facility] [address], [place] [address] Mar, Chronic gout, unspecified cause, unspecified site M1A.9XX0 [facility] [address] [place] [id number] [place] [address] Mar, [facility] [address] [place] [id number] [place] [address] Jan, [facility] [address] [place] [id number] [place] [address] Jan, Left arm swelling M79.89 ; Diabetes mellitus E11.9 and CAD (coronary artery disease) I25.10 [facility] [address] [place] [id number] [address] Jan, Essential hypertension I10 ; 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 ; Type 2 diabetes mellitus without complication E11.9 and Coronary artery disease involving [place] coronary artery of [place] heart without angina pectoris I25.10 [place] [address], [place] [address] Jan, [facility] [address], [place] [address] Jan, [facility] [address] [place] [id number] [address] Jan, [facility] [address] [place] [id number] [place] [address] December, [facility] [address], [place] [address] December, [facility] [address] [place] [id number] [place] [address] December, Type 2 diabetes mellitus with complication, without long-term current use of insulin E11.8 ; Hyperlipidemia, unspecified hyperlipidemia type E78.5 and Neuropathy G62.9 [place] [id number] [place] [address] Dec, [place] [id number] [place] [address] Oct, [address] [address] Oct, Dilated cardiomyopathy I42.0 ; CAD (coronary artery disease) I25.10 ; Typical atrial flutter I48.3 and Diabetes mellitus type II, controlled E11.9 [place] [id number] [place] [address] Aug, Diabetes mellitus E11.9 and History of atrial flutter Z86.79 [place] [id number] [place] [address] May, [place] [id number] [place] [address] May, Hyperkalemia 276.7 and Atrial flutter 427.32 [place] [id number] [place] [address] May, [place] [id number] [place] [address] May, [place] [id number] [place] [address] May, [place] [id number] [place] [address] Apr, [place] [id number] [place] [address] Apr, A-fib 427.31 ; Chronic ischemic heart disease, 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 ; Ischemic cardiomyopathy 414.8 ; Chronic combined systolic and diastolic heart failure 428.42 and Diabetes with hyperosmolarity, type II or unspecified type, uncontrolled 250.22 [facility] [address] [place] [id number] [address] Apr, [facility] [address] [place] [id number] [place] [address] Apr, [facility] [address] [place] [id number] [place] [address] Apr, [facility] [address] [place] [id number] [place] [address] Mar, CAD (coronary artery disease) 414.00 ; Diabetes mellitus, type 2 250.00 and HTN (hypertension), benign 401.1 [facility] [address] [place] [id number] [place] [address] Mar, Diabetes mellitus, type II 250.00 and CAD (coronary artery disease) 414.00 [facility] [address] [place] [id number] [place] [address] Mar, [facility] [address] [place] [id number] [address] Mar, [facility] [address] [place] [id number] [place] [address] Jan, [facility] [address], [place] [address] December, [facility] [address] [place] [address] December, [facility] [address], [place] [address] Dec, [facility] [address] [place] [id number] [place] [address] Dec, [facility] [address], [place] [address] Oct, [facility] [address] [place] [id number] [place] [address] Oct, [facility] [place] [facility] [address] [id number] [place] [address] Sep, [facility] [place] [facility] [address] [id number] [place] [address] Sep, [facility] [place] [facility] [address] [id number] [place] [address] Sep, [facility] [place] [facility] [address] [id number] [place] [address] Sep, [facility] [place] [facility] [address] [id number] [place] [address] Aug, [facility] [place] [facility] [address] [id number] [place] [address] Aug, [facility] [place] [facility] [address] [id number] [place] [address] Mar, [facility] [place] [facility] [address] [id number] [place] [address] Mar, [facility] [place] [facility] [address] [id number] [place] [address] Mar, [facility] [place] [facility] [address] [id number] [place] [address] Mar, [facility] [place] [facility] [address] [id number] [place] [address] Mar, [facility] [place] [facility] [address] [id number] [place] [address] Mar, [facility] [place] [facility] [address] [id number] [place] [address] Mar, [facility] [place] [facility] [address] [id number] [place] [address] Dec, [facility] [place] [facility] [address] [id number] [place] [address] Dec, [facility] [place] [facility] [address] [id number] [place] [address] Dec, [facility] [address] [id number] [place] [address] Dec, [facility] [place] [facility] [address] [id number] [place] [address] Oct, [facility] [address] [id number] [place] [address] Oct, [facility] [place] [facility] [address] [id number] [place] [address] May, [facility] [place] [facility] [address] [id number] [place] [address] Apr, [facility] [place] [facility] [address] [id number] [place] [address] Apr, [facility] [address] [id number] [place] [address] December, [facility] [address] [id number] [place] [address] Dec, [facility] [place] [facility] [address] [id number] [place] [address] Sep, [facility] [place] [facility] [address] [id number] [place] [address] Sep, [facility] [place] [facility] [address] [id number] [place] [address] Sep, [facility] [place] [facility] [address] [id number] [place] [address] Jul, [facility] [place] [facility] [address] [id number] [place] [address] May, [facility] [place] [facility] [address] [id number] [place] [address] May, [facility] [place] [facility] [address] [id number] [place] [address] 04 May, 2012 [facility] [place] [facility] [address] [id number] [place] [address] 27 Apr, 2012 [facility] [place] [facility] [address] [id number] [place] [address] 15 Apr, 2012 [facility] [place] [facility] [address] [id number] [place] [address] 14 Apr, 2012 [facility] [place] [facility] [address] [id number] [place] [address] Mar, [facility] [place] [facility] [address] [id number] [place] [address] Mar, [facility] [place] [facility] [address] [id number] [place] [address] Dec, [facility] [place] [facility] [address] [id number] [place] [address] Oct, [facility] [place] [facility] [address] [id number] [place] [address] Oct, [facility] [place] [facility] [address] [id number] [place] [address] Oct, [facility] [place] [facility] [address] [id number] [place] [address] Oct, [facility] [place] [facility] [address] [id number] [place] [address] Oct, [facility] [place] [facility] [address] [id number], [place] [address] Aug, [facility] [place] [facility] [address] [id number] [place] [address] Sep, [facility] [place] [facility] [address] [id number] [place] [address] 13 May, 2010 [facility] [place] [facility] [address] [id number] [place] [address] 17 Jul, 2009 [facility] [place] [facility] [address] [facility] [id number] [place] [address] 16 Jul, 2009 [facility] [address] [facility] [id number] [place] [address] 10 May, 2009 IMMUNIZATIONS No Known Immunizations SOCIAL HISTORY Never Assessed REASON FOR VISIT ED visit PLAN OF CARE VITAL SIGNS MEDICATIONS Unknown [...] History influenza A, Sepsis, Pneumonia, Elevated liver enzymes-[facility] 10/21/16 Hospitalization History fatigue, observation 11/17
--- OUTSIDE RECORDS SUMMARY | 2019-03-25 13:55 | XMS REPORT ---
Author Author Migration, Doctor Organization [facility] Address Unknown Phone Unavailable Care Team Providers Care Diagrammer Name Role Phone Migration, Doctor Unavailable Unavailable PROBLEMS Type Condition ICD9-CM Code TCI83-CH Code Onset Dates Condition Status SNOMED Code Problem Hypokalemia E87.6 Active 44794208 Problem Atypical atrial flutter I48.4 16 Apr, 2015 Active 0311959 Problem Essential hypertension I10 Active 96982215 Problem Hyperammonemia E72.20 Active 3740945 Problem Chronic gout, unspecified cause, unspecified site M1A.[id number] Active 17796274 Problem Nonsustained ventricular tachycardia I47.2 Active 799531322 Problem Typical atrial flutter I48.3 Active 962398225 Problem S/P CABG (coronary artery bypass graft) Z95.1 Active 682895190 Problem Dilated cardiomyopathy I42.0 Active 577214230 Problem Hx of renal calculi Z87.442 Active 939322382 Problem Hx of atrioventricular node ablation Z98.890 Sep, Active 226362258 Problem 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 Sep, Active 819338808 Problem Gait disturbance R26.9 Active 62908052 Problem Hyperbilirubinemia E80.6 Active 74343492 Problem Persistent atrial fibrillation I48.1 Active 035285969 Problem 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 Active 004815898647650 Problem Type 2 diabetes mellitus without complication E11.9 Active 740223624 Problem Acute on chronic systolic (congestive) heart failure I50.23 Active 070677180 Problem Non-ischemic cardiomyopathy I42.9 Apr, Active 40147451 Problem Coronary artery disease involving [place] coronary artery of [place] heart without angina pectoris I25.10 Active 8995958269376 Problem Chronic kidney disease, unspecified CKD stage N18.9 Active 574348486 Problem Risk for falls Z91.81 Active 893902430 Problem Chronic atrial fibrillation I48.2 Active 988119379 Problem Increased ammonia level R79.89 Active 439984796 ALLERGIES No Information ENCOUNTERS Encounter Location Date Diagnosis [address] [place] [address] 08 Oct, 2018 Dental examination Z01.20 and Caries K02.9 [place] [address] [address] 13 Oct, 2018 Type 2 diabetes mellitus without complication E11.9 [place] [address] [place] [id number] [place] [address] 01 Oct, 2018 Hypokalemia E87.6 [place] [address] [place] [id number] [place] [address] 28 Sep, 2018 Hypokalemia E87.6 [facility] [place] [address] 16 Sep, [address] [address] 14 Sep, 2018 Dental examination Z01.20 and Caries K02.9 [place] [address] [place] [id number] [place] [address] Aug, Hypokalemia E87.6 [place] [address] [place] [id number] [place] [address] 17 Aug, 2018 Type 2 diabetes mellitus without complication E11.9 and 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 [place] [id number] [place] [address] Apr, Chronic atrial fibrillation I48.2 and Coronary artery disease involving [place] coronary artery of [place] heart without angina pectoris I25.10 [place] [id number] [place] [address] Apr, Type 2 diabetes mellitus without complication E11.9 ; Hypokalemia E87.6 ; Chronic atrial fibrillation I48.2 and Dilated cardiomyopathy I42.0 [place] [address] [place] [id number] [place] [address] December, [place] [address] [place] [id number] [place] [address] December, [place] [address] [place] [id number] [place] [address] Dec, Hyperammonemia E72.20 [facility] [address] [place] [id number] [place] [address] Oct, Increased ammonia level R79.89 ; Pleural effusion, left J90 ; Dilated cardiomyopathy I42.0 ; Weakness R53.1 ; Gait disturbance R26.9 and Diabetes mellitus E11.9 [place] [address] [place] [id number] [place] [address] Oct, [place] [address] [place] [id number] [place] [address] Oct, [place] [address] [place] [id number] [place] [address] Oct, [place] [address] [place] [id number] [place] [address] Oct, Weakness R53.1 and Gait disturbance R26.9 [place] [address] [place] [id number] [place] [address] Oct, Weakness R53.1 ; 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 ; Type 2 diabetes mellitus without complication E11.9 ; Chronic kidney disease, unspecified CKD stage N18.9 ; Chronic atrial fibrillation I48.2 and Hypokalemia E87.6 [place] [address] [place] [id number] [place] [address] Oct, Dilated cardiomyopathy I42.0 ; 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 ; Type 2 diabetes mellitus without complication E11.9 and Chronic atrial fibrillation I48.2 [place] [address] [place] [id number] [place] [address] Oct, [place] [address] [place] [id number] [place] [address] Oct, Hypokalemia E87.6 ; Other specified hypotension I95.89 ; Type 2 diabetes mellitus without complication E11.9 and Weakness R53.1 [place] [address] [address] Sep, Hypokalemia E87.6 [place] [address] [address] Sep, Chronic kidney disease, unspecified CKD stage N18.9 [place] [address] [address] Sep, Type 2 diabetes mellitus without complication E11.9 ; Cough R05 and Chronic kidney disease, unspecified CKD stage N18.9 [place] [address] [address] Aug, Hypokalemia E87.6 and Acute bronchitis, unspecified organism J20.9 [place] [address] [address] Aug, Gait disturbance R26.9 ; Risk for falls Z91.81 ; Acute bronchitis, unspecified organism J20.9 and Hypokalemia E87.6 [place] [address] [address] Aug, Hypokalemia E87.6 [place] [address] [address] Jul, [place] [address] [address] Jul, Encounter for immunization Z23 [place] [address] [address] Jun, Encounter for immunization Z23 [place] [address] [address] Apr, Type 2 diabetes mellitus without complication E11.9 [place] [address] [address] Mar, [facility] [id number] [place] [address] Jan, [place] [address] [place] [id number] [place] [address] Oct, 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 ; Weakness R53.1 and Gait disturbance R26.9 [place] [address] [address] Oct, [facility] [address] [id number] Oct, [place] [address] [place] [id number] [place] [address] Oct, 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 ; 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 and Typical atrial flutter I48.3 [place] [address] [place] [id number] [place] [address] 03 Oct, 2016 Hx of atrioventricular node ablation Z98.890 ; 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 and Type 2 diabetes mellitus with hypoglycemia without coma, without long-term current use of insulin E11.649 [place] [address] [place] [address] Sep, Chronic gout, unspecified cause, unspecified site M1A.9XX0 [place] [address] [place] [address] Sep, Type 2 diabetes mellitus without complication E11.9 [place] [address] [address] Sep, Persistent atrial fibrillation I48.1 ; 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 and Non-ischemic cardiomyopathy I42.9 [place] [address] [place] [id number] [place] [address] Sep, Persistent atrial fibrillation I48.1 ; 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 and Non-ischemic cardiomyopathy I42.9 [place] [address] [place] [address] Aug, 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 [place] [address] [place] [id number] [place] [address] Jul, Type 2 diabetes mellitus without complication E11.9 [place] [address] [place] [id number] [place] [address] Jul, Coronary artery disease involving [place] coronary artery of [place] heart without angina pectoris I25.10 ; Typical atrial flutter I48.3 ; 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 ; Acute on chronic systolic (congestive) heart failure I50.23 ; Dilated cardiomyopathy I42.0 and Status post internal cardiac defibrillator procedure Z95.810 [place] [address] [place] [id number] [place] [address] May, Coronary artery disease involving [place] coronary artery of [place] heart without angina pectoris I25.10 ; Dilated cardiomyopathy I42.0 and Typical atrial flutter I48.3 [place] [address] [place] [address] Apr, [place] [address] [place] [address] Apr, Coronary artery disease involving [place] coronary artery of [place] heart without angina pectoris I25.10 ; Type 2 diabetes mellitus without complication E11.9 and 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 [place] [address] [address] Apr, [place] [address] [place] [id number] [place] [address] Apr, [place] [address] [place] [id number] [place] [address] Apr, Dilated cardiomyopathy I42.0 ; Coronary artery disease involving [place] coronary artery of [place] heart without angina pectoris I25.10 ; Typical atrial flutter I48.3 and Automatic implantable cardioverter-defibrillator in situ Z95.810 [place] [address] [place] [id number] [place] [address] Mar, Chronic gout, unspecified cause, unspecified site M1A.9XX0 [place] [address] [place] [id number] [place] [address] Mar, [place] [address] [place] [id number] [place] [address] Jan, [place] [address] [place] [id number] [place] [address] Jan, Left arm swelling M79.89 ; Diabetes mellitus E11.9 and CAD (coronary artery disease) I25.10 [place] [address] [place] [id number] [place] [address] Jan, Essential hypertension I10 ; 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 ; Type 2 diabetes mellitus without complication E11.9 and Coronary artery disease involving [place] coronary artery of [place] heart without angina pectoris I25.10 [place] [address] [place] [id number] [place] [address] Jan, [place] [address] [place] [id number] [place] [address] Jan, [place] [address] [place] [id number] [place] [address] Jan, [place] [address] [place] [id number] [place] [address] December, [place] [address] [place] [id number] [place] [address] December, [place] [address] [place] [address] December, Type 2 diabetes mellitus with complication, without long-term current use of insulin E11.8 ; Hyperlipidemia, unspecified hyperlipidemia type E78.5 and Neuropathy G62.9 [place] [address] [place] [id number] [place] [address] Dec, [place] [address] [place] [id number] [place] [address] Oct, [place] [address] [address] Oct, Dilated cardiomyopathy I42.0 ; CAD (coronary artery disease) I25.10 ; Typical atrial flutter I48.3 and Diabetes mellitus type II, controlled E11.[address] [address] Aug, Diabetes mellitus E11.9 and History of atrial flutter Z86.[address] [address] May, [place] [address] [address] May, Hyperkalemia 276.7 and Atrial flutter 427.32 [place] [id number] [place] [address] May, [place] [address] [place] [id number] [place] [address] May, [place] [address] [place] [id number] [place] [address] May, [place] [address] [place] [id number] [place] [address] Apr, [place] [address] [place] [id number] [place] [address] Apr, A-fib 427.31 ; Chronic ischemic heart disease, 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 ; Ischemic cardiomyopathy 414.8 ; Chronic combined systolic and diastolic heart failure 428.42 and Diabetes with hyperosmolarity, type II or unspecified type, uncontrolled 250.22 [place] [address] [place] [address] Apr, [facility] [address] [id number] [address] Apr, [facility] [address] [id number] [address] Apr, [facility] [address] [facility] [address] [id number] [address] Mar, CAD (coronary artery disease) 414.00 ; Diabetes mellitus, type 2 250.00 and HTN (hypertension), benign 401.1 [facility] [address] [id number] [address] Mar, Diabetes mellitus, type II 250.00 and CAD (coronary artery disease) 414.00 [facility] [address] [facility] [address] [id number] [address] Mar, [facility] [address] [id number] [address] Mar, [facility] [address] [place] [id number] [address] Jan, [facility] [id number] [address] December, [facility] [id number] [address] December, [facility] [address] [facility] [address] [id number] [address] Dec, [facility] [address] [id number] [place] [address] Dec, [facility] [id number] [address] Oct, [facility] [id number] [address] Oct, [facility] [address] [facility] [address] [id number] [address] Sep, [facility] [place] [facility] [address] [id number] [place] [address] Sep, [facility] [place] [facility] [address] [id number] [place] [address] Sep, [facility] [place] [facility] [address] [id number] [place] [address] Sep, [facility] [place] [facility] [address] [id number] [place] [address] Aug, [facility] [place] [facility] [address] [id number] [place] [address] Aug, [facility] [place] [facility] [address] [id number] [place] [address] Mar, [facility] [place] [facility] [address] [id number] [place] [address] Mar, [facility] [place] [facility] [address] [id number] [place] [address] Mar, [facility] [place] [facility] [address] [id number] [place] [address] Mar, [facility] [place] [facility] [address] [id number] [place] [address] Mar, [facility] [place] [facility] [address] [id number] [place] [address] Mar, [facility] [place] [facility] [address] [id number] [place] [address] Mar, [facility] [place] [facility] [address] [id number] [place] [address] Dec, [facility] [place] [facility] [address] [id number] [place] [address] Dec, [facility] [place] [facility] [address] [id number] [place] [address] Dec, [facility] [place] [facility] [address] [id number] [place] [address] Dec, [facility] [place] [facility] [address] [id number] [place] [address] Oct, [facility] [place] [facility] [address] [id number] [place] [address] Oct, [facility] [place] [facility] [address] [id number] [place] [address] May, [facility] [place] [facility] [address] [id number] [place] [address] Apr, [facility] [place] [facility] [address] [id number] [place] [address] Apr, [facility] [place] [facility] [address] [id number] [place] [address] December, [facility] [place] [facility] [address] [id number] [place] [address] Dec, [facility] [place] [facility] [address] [id number] [place] [address] Sep, [facility] [place] [facility] [address] [id number] [place] [address] Sep, [facility] [place] [facility] [address] [id number] [place] [address] Sep, [facility] [place] [facility] [address] [id number] [place] [address] Jul, [facility] [place] [facility] [address] [id number] [place] [address] May, [facility] [place] [facility] [address] [id number] [place] [address] May, [facility] [place] [facility] [address] [id number] [place] [address] May, [facility] [place] [facility] [address] [id number] [place] [address] 27 Apr, 2012 [facility] [place] [facility] [address] [id number] [place] [address] 15 Apr, 2012 [facility] [place] [facility] [address] [id number] [place] [address] 14 Apr, 2012 [facility] [place] [facility] [address] [id number] [place] [address] 13 Mar, 2012 [facility] [place] [facility] [address] [id number] [place] [address] 13 Mar, 2012 [facility] [place] [facility] [address] [id number] [place] [address] Dec, [facility] [place] [facility] [address] [id number] [place] [address] 28 Nov, 2011 [facility] [place] [facility] [address] [id number] [place] [address] Oct, [facility] [place] [facility] [address] [id number] [place] [address] Oct, [facility] [place] [facility] [address] [id number] [place] [address] Oct, [facility] [place] [facility] [address] [id number] [place] [address] Oct, [facility] [place] [facility] [address] [id number] [place] [address] Aug, [facility] [place] [facility] [address] [id number] [place] [address] Sep, [facility] [place] [facility] [address] [id number] [place] [address] May, [facility] [place] [facility] [address] [id number] [place] [address] 17 Jul, 2009 [facility] [place] [facility] [address] [id number] [place] [address] 16 Jul, 2009 [facility] [place] [facility] [address] [facility] [address] [id number] [place] [address] 10 May, 2009 IMMUNIZATIONS No Known Immunizations SOCIAL HISTORY Never Assessed REASON FOR VISIT [facility] PLAN OF CARE VITAL SIGNS MEDICATIONS Medication Instructions Dosage Frequency Start Date End Date Duration Status Doxycycline Hyclate 100 mg take 1 tablet (100 mg) by oral route 2 times per day for 7 days Sep, Active Caduet 10-10 mg take 1 tablet by oral route once daily Oct, Active amiodarone 200 mg take 1 tablet (200 mg) by oral route once daily Apr, Active atorvastatin 10 mg take 1 tablet (10 mg) by oral route once daily at bedtime Sep, Active Furosemide 40 mg take 1 tablet (40 mg) by oral route once daily May, Active Atenolol 25 mg take 1 tablet by Oral route 1 time per day (Must have appt in the next 30 days) Oct, Active Potassium Chloride 10 mEq 1 time per day May, Active RESULTS No Results PROCEDURES No Known [...] History influenza A, Sepsis, Pneumonia, Elevated liver enzymes-[facility] 10/21/16 Hospitalization History fatigue, observation 11/17
[2019-03-25] MEDS ORDERED: AMLO10TA7 PO (14:09)
[2019-03-25] MEDS ORDERED: MIDAZOLAM 2 MG/2 ML (VERSED) VIAL ONE ×2 (15:20→15:21)
[2019-03-25] MEDS ORDERED: LIDOCAINE JELLY 2% 6 ML SYRINGE ONE (15:20)
[2019-03-25] MEDS ORDERED: fentaNYL INJECTION 100 MCG/2 ML AMP ONE (15:20)
[2019-03-25] MEDS ORDERED: LACTATED RINGERS 1,000 ML IV ONE ×4 (15:21→17:16)
[2019-03-25] MEDS ORDERED: HURRICAINE EXT TUBE (BENZOCAINE) ONE (15:21)
--- NOTE | 2019-03-25 16:35 | Progress Note-Post Operative ---
Post-Operative Progess Note Surgeon (s)/Pattern Maker Programer (s) Surgeon MAUDE GOLDSMITH MD Pattern Maker Programer: none Pre-Operative Diagnosis dysphagia, weight loss Post-Operative Diagnosis circumferential distal esophageal mass, small HH(2cm), mild gastritis. Procedure & Operative Findings Date of Procedure 03/25/19 Procedure Performed/Findings EGD with bx. Anesthesia Type cs Estimated Blood Loss Estimated blood loss (mL): minimal Specimens/Packing Specimens Removed ge jxn mass, antrum MAUDE GOLDSMITH MD Mar 25, 2019 16:34
[2019-03-25 19:42] LABS: HEMOGLOBIN 17.7 G/DL (13.3-17.7); MEAN PLATELET VOLUME 11.4 FL (7.4-10.4); RED CELL DISTRIBUTION WIDTH 19.4 % (10.0-14.5)
[2019-03-25 19:55] LABS: INR 1.4 (0.8-1.4); PROTHROMBIN TIME PATIENT 18.1 SEC (12.2-14.7)
[2019-03-25 20:16] LABS: ALANINE AMINOTRANSFERASE 9 U/L (0-55); ALBUMIN 3.3 GM/DL (3.2-4.5); ALKALINE PHOSPHATASE 94 U/L (40-136); BUN/CREATININE RATIO 26; CALCIUM 9.7 MG/DL (8.5-10.1); CARBON DIOXIDE 26 MMOL/L (21-32); CHLORIDE 99 MMOL/L (98-107); CREATININE SERUM 0.82 MG/DL (0.60-1.30); GFR ESTIMATED > 60; GLUCOSE 98 MG/DL (70-105); POTASSIUM 4.2 MMOL/L (3.6-5.0); SODIUM 139 MMOL/L (135-145); TOTAL PROTEIN 7.2 GM/DL (6.4-8.2)
--- NOTE | 2019-03-25 20:31 | OPERATIVE REPORT ---
DATE OF SERVICE: 03/25/2019 ATTENDING PRIMARY CARE PHYSICIAN: Dr. Roper as well as Amanda Titus APRN. PREOPERATIVE DIAGNOSES: Dysphagia, weight loss. 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 Small hiatal hernia approximately 2.5 cm in size, mild gastritis. No distal obstructions. PROCEDURE: EGD with biopsy. SURGEON: Maude Goldsmith MD. ANESTHESIA: Conscious sedation. ESTIMATED BLOOD LOSS: Minimal. FINDINGS: Large esophageal mass, which was fungating appears to be concerning for carcinoma. The mass was circumferential and did cause partial obstruction of the distal esophagus; however, we were able to get the scope through this region. A small hiatal hernia 2.5 cm in size, mild gastritis. Pylorus and duodenum appeared normal. No distal obstructions. DISPOSITION: The patient tolerated the procedure well. INDICATIONS: The patient is a 78-year-old male referred over to us for a one month history of dysphagia, nausea, vomiting and weight loss. He reports that shortly after eating a meal, he would feel nausea and then the production of salivation and phlegm and then he would have coughing episodes and then vomiting. He states that he has lost 10 pounds over the past month due to this issue. He does not report any classic symptoms of heartburn, reflux or peptic ulcer disease; however, was recently started on Nexium. DESCRIPTION OF PROCEDURE: The patient was brought to the endoscopy suite, laid in left lateral decubitus position. After adequate IV pain and sedating medications and conscious sedation anesthesia, the mouthpiece was applied. Endoscope was placed in the mouth, visualizing the pharynx and hypopharyngeal region. Vocal cords, epiglottis and vallecula were identified and appeared to be normal. Endoscope was gently intubated in the esophageal opening and esophagus insufflated. The endoscope was then advanced to the first, second and third portion of the esophagus at the level of the GE junction. A circumferential fungating mass was identified, which was worrisome for carcinoma. Multiple biopsies were taken with forceps with visualization of good hemostasis. With gentle pressure, the endoscope was able to pass through the area of occlusion and mass. The endoscope was retroflexed, visualizing the mass again with a small hiatal hernia approximately 2.5 cm in size. There was a mild severity gastritis. No formal ulcerations, polyps, or any neoplasms. A biopsy was taken of the antrum to rule out H. pylori with visualization of good hemostasis. The endoscope was then advanced to the pylorus and the first and second portion of the duodenum, which appeared normal with no distal obstructions. The endoscope was then slowly withdrawn while taking a second look and suctioning of residual air with no additional findings. The patient tolerated the procedure well. We will await the biopsy results; however, this is worrisome for carcinoma and he will need further workup including a CT scan of the chest and abdomen as well as laboratory work including liver function enzymes. It is unsure if he is a candidate for an esophageal surgery, which would encompass further evaluation with an endoscopic ultrasound to identify the depth; however, this does appear to be a more advanced lesion that would require neoadjuvant chemoradiation before proceeding with an esophagectomy. We will have him follow up in the office within one week. Job ID: [id number] DocumentID: [id number] Dictated Date: 03/25/2019 15:59:26 Timber Skidder Date: 03/25/2019 20:31:43 Dictated By: MAUDE GOLDSMITH MD MTDD
== END 2019-03-25 19:30 | disposition home or self-care (01) ==
LOC: ENDO 13:27
PROVIDERS: ATTEND Surgery
DX: C16.0 Malignant neoplasm of cardia (principal); K29.70 Gastritis, unspecified, without bleeding; K44.9 Diaphragmatic hernia without obstruction or gangrene; K31.89 Other diseases of stomach and duodenum; I48.92 Unspecified atrial flutter; I11.0 Hypertensive heart disease with heart failure; I50.9 Heart failure, unspecified; I25.10 Atherosclerotic heart disease of native coronary artery without angina pectoris; E11.9 Type 2 diabetes mellitus without complications; M10.9 Gout, unspecified; E78.5 Hyperlipidemia, unspecified; Z87.442 Personal history of urinary calculi; Z79.82 Long term (current) use of aspirin; Z79.01 Long term (current) use of anticoagulants; Z79.899 Other long term (current) drug therapy; Z87.891 Personal history of nicotine dependence; Z80.0 Family history of malignant neoplasm of digestive organs
CPT/HCPCS: 36415; 80053; 84134; 85027; 85610

== ENCOUNTER 2019-04-01 09:47 | Day surgery (SDC) | payer MEDICARE, OTHER ==
[~2019-04-01] VITALS: Ht 182.9 cm; Wt 68.3 kg
[2019-04-01] VITALS (8 sets, daily range): BP systolic 92–107; BP diastolic 62–76
--- OUTSIDE RECORDS SUMMARY | 2019-04-01 09:54 | XMS REPORT | Clinical Summary ---
Author Author [facility] Organization [facility] Address Unknown Phone Unavailable Care Team Providers Care Grape Cutter Name Role Phone Kalina Garza Unavailable Nidhi Roper DO PCP Vickie Monroe RN Unavailable Unavailable Source Comments Some departments are not documenting in the electronic medical record. If you d o not see the information that you expected, contact Release of Information in [facility] Clerk Information Management department at [phone] for further assistan ce in locating additional records.[facility] Allergies No Known Allergies Medications End Date [...] with involving coronary bypass food. graft of [place] heart without angina pectoris, Essential hypertension, PVC's [...] disease food. involving coronary bypass graft of [place] heart without angina pectoris, Essential hypertension, PVC's [...] 09/19/2016 ICD (implantable cardioverter-defibrillator), biventricular, in situ 09/13/2016 Overview: 2016 Single-chamber ICD ([employer]) 09/13/16 RV lead revision, RA/LV lead placement and upgrade to OUTDOOR ILLUMINATING ENGINEER-D (Defibrillation threshold testing (DFTs) at the time [...] CROW LVEF 35 - 40% 02/07/16 Via [facility]: Single chamber ICD implantation: [employer] [place] passive dual coil 64 cm lead with model number 0286 and serial number [id number], lead - [employer] model E140 serial number [id number] Chronic combined systolic and diastolic congestive heart failure 05/17/2015 Typical atrial flutter 05/17/2015 Overview: 04/19/15: Successful DCCV. 04/19/15: CROW: EF 35-40%. Moderately impaired LV function. Moderate AV sclerosis. No thrombus. Mild MR. 04/18/15: Echo: LA size 5.1cm. EF 30%. 04/17/15: CT angio chest: No Pulm Embolism. Cardiac enlargement wit post sternotomy changes. Coronary artery disease involving coronary bypass graft of [place] heart 05/17/2015 without angina pectoris Overview: 2009: CABG at [facility]. CABG x 5 - CARDONA [...] 0.5 5 Smokeless Tobacco: Former Chew User Drinks/Week oz/Week Comments Alcohol Use No Sex Assigned at Date Recorded Not on file Industry Job Start Date Occupation Not on file Not on file Not on file Travel End Travel History Travel Start No recent travel history available. Last Filed Vital Signs Reading Time Taken Comments Vital Sign 94/63 09/19/2016 12:08 PM DEPUTY SHERIFF GENERALIST RN notified Blood Pressure 80 09/19/2016 12:08 PM DEPUTY SHERIFF GENERALIST Pulse 36.5 C (97.7 F) 09/19/2016 12:08 PM DEPUTY SHERIFF GENERALIST Temperature - - Respiratory Rate 97% 09/19/2016 12:08 PM DEPUTY SHERIFF GENERALIST Oxygen Saturation - - Inhaled Oxygen Concentration 89.8 kg (198 lb) 09/19/2016 6:00 AM DEPUTY SHERIFF GENERALIST Weight 182.9 cm (6') 09/13/2016 7:51 PM DEPUTY SHERIFF GENERALIST Height 26.85 09/13/2016 7:51 PM DEPUTY SHERIFF GENERALIST Body Mass Index Plan of Treatment Health Maintenance Due Date Last Done Comments PHYSICAL (COMPREHENSIVE) 1947 EXAM DILATED EYE EXAM 1959 DTAP/TDAP VACCINES (1 - 1959 Tdap) FOOT EXAM 1959 HBA1C 1959 MICROALBUMIN 1959 SHINGLES RECOMBINANT 1991 VACCINE (1 of 2) PNEUMONIA (PCV13/PPSV23) 2006 VACCINES (1 of 2 - PCV13) INFLUENZA VACCINE 06/02/2019 Implants Device Identifier Shelf Expiration Date Model / Serial / Lot Implanted Type Area Manufactur er Icd ICD Results Not on filefrom Last 3 Months Insurance Type Payer Benefit Subscriber ID Effective Phone Address Plan / Dates Group Medicare MEDICARE MEDICARE xxxxxxxxxx 2006-P PART A AND resent B [employer] OF [employer] M[employer] OF xxxxxx-xx 2015- IZZY Present Advance Directives Patient Occupational Therapist Assistants Explanation Type Date Recorded Advance 06/09/2015 6:53 AM Directive/DPOA Date Inactivated Comments Code Status Date Activated 09/19/2016 4:40 PM Full Code 09/12/2016 2:01 PM Provider has discussed Code Status No, more discussion w/Patient or Family? needed 06/10/2015 12:42 PM Full Code 06/09/2015 7:03 AM Provider has discussed Code Status No, more discussion w/Patient or Family? needed
[2019-04-01] MEDS ORDERED: CATHETER FLUSH 10 ML SYR IV PRN (10:15)
[2019-04-01] MEDS ORDERED: ceFAZolin INJECTION 1,000 MG in WATER (STERILE) FOR INJECTION 10 ML IV ONE (10:15)
[2019-04-01] MEDS: LACTATED RINGERS 1,000 ML IV PRN ×2 (10:38→15:30)
[2019-04-01 10:56] LABS: BASOPHILS % (AUTO) 0 % (0-10); EOSINOPHILS % (AUTO) 0 % (0-10); HEMATOCRIT 49 % (40-54); HEMOGLOBIN 17.1 G/DL (13.3-17.7); LYMPHOCYTES # (AUTO) 1.2 X 10^3 (1.0-4.0); LYMPHOCYTES % (AUTO) 12 % (12-44); MEAN CORPUSCULAR HEMOGLOBIN 32 PG (25-34); MEAN CORPUSCULAR HGB CONC 35 G/DL (32-36); MEAN CORPUSCULAR VOLUME 91 FL (80-99); MEAN PLATELET VOLUME 10.9 FL (7.4-10.4); MONOCYTES # (AUTO) 0.7 X 10^3 (0.0-1.0); MONOCYTES % (AUTO) 7 % (0-12); NEUTROPHILS # (AUTO) 7.8 X 10^3 (1.8-7.8); NEUTROPHILS % (AUTO) 80 % (42-75); PLATELET COUNT 125 10^3/uL (130-400); RED CELL DISTRIBUTION WIDTH 18.8 % (10.0-14.5); WHITE BLOOD COUNT 9.7 10^3/uL (4.3-11.0)
[2019-04-01 11:15] LABS: ALANINE AMINOTRANSFERASE 9 U/L (0-55); ALBUMIN 3.3 GM/DL (3.2-4.5); ALKALINE PHOSPHATASE 88 U/L (40-136); BILIRUBIN,TOTAL 3.1 MG/DL (0.1-1.0); BUN/CREATININE RATIO 23; CALCIUM 9.6 MG/DL (8.5-10.1); CARBON DIOXIDE 25 MMOL/L (21-32); CHLORIDE 103 MMOL/L (98-107); CREATININE SERUM 0.75 MG/DL (0.60-1.30); GFR ESTIMATED > 60; GLUCOSE 78 MG/DL (70-105); POTASSIUM 4.2 MMOL/L (3.6-5.0); SODIUM 144 MMOL/L (135-145); TOTAL PROTEIN 6.9 GM/DL (6.4-8.2)
--- NOTE | 2019-04-01 12:26 | NUR ---
Janki Senior, Director Information, here to see patient.
[2019-04-01] MEDS ORDERED: PROPOFOL INJECTION 50 ML IV ONE ×2 (12:39→13:56)
[2019-04-01] MEDS ORDERED: HEParin (CENTRAL IV FLUSH) 500 UNIT/5 ML SYR ONE (13:29)
[2019-04-01] MEDS ORDERED: LIDOCAINE/EPI 1%-1:100,000 (XYLOCAINE) 20ML ONE (13:29)
--- NOTE | 2019-04-01 13:52 | NUR ---
PT TO GET A PEG TUBE DUE TO DYSPHAGIA/REFLUX AND WEIGHT LOSS. PT HAS HAD MINIMAL INTAKE FOR A FEW WEEKS DUE TO THE ABOVE, AND STATED THAT THE PAST WEEK HAS NOT EVEN BEEN ABLE TO SWALLOW WATER.. ESTIMATED NEEDS ARE 2113 KCAL, 86-130 GRAMS PROTEIN, 2110 FLUID PER DAY. RECOMMEND ENSURE PLUS, 6 CANS PER DAY TO PROVIDE 2100 KCAL, 78 GRAMS PROTEIN, 1212 ML FREE WATER. PT WILL NEED ADDITIONAL 1 LITER OF FLUID PER DAY PER FLUSHES. IF PT IS ABLE TO OBTAIN DIFFERENT FORMULA, RECOMMEND JEVITY 1.5 TO INCREASE PROTEIN INTAKE AND TO DECREASE LIKELIHOOD OF DIARRHEA.
--- NOTE | 2019-04-01 14:22 | Progress Note-Pre Operative ---
Pre-Operative Progress Note H&P Reviewed The H&P was reviewed, patient examined and no changes noted. Date Seen by Provider: Apr 01, 2019 Time Seen by Provider: 14:00 Date H&P Reviewed: Apr 01, 2019 Time H&P Reviewed: 14:00 Pre-Operative Diagnosis: esophageal cancer MAUDE GOLDSMITH MD Apr 01, 2019 14:22
[2019-04-01] MEDS ORDERED: HYDR-34 PO (14:23)
--- NOTE | 2019-04-01 14:24 | Discharge Inst-Surgical ---
D/C Lap Instructions-KIDO New, Converted, or Re-Newed RX: RX on Chart Follow Up PRN Activity as tolerated may use g-tube and groshong at any time. Incentive Spirometry use every 2 hours while awake Regular Diet Symptoms to Report: Fever over 101 degree F, Nausea/Vomiting Infection Signs and Symptoms to report: Increased redness, Foul odor of wound, Increased drainage Bathing instructions: May shower Operative Area Clean/Dry; Keep incision clean/dry If any problems/questions: Contact your physician or go to Emergency Room MAUDE GOLDSMITH MD Apr 01, 2019 14:24
[2019-04-01] MEDS ORDERED: HYDROcodone/APAP 5 MG/325 MG (LORTAB) TAB PO PRN (14:30)
[2019-04-01] MEDS ORDERED: ONDANSETRON 4 MG/2 ML (SDV) Z0FRAN IVP PRN ×2 (14:30→16:30)
[2019-04-01] MEDS ORDERED: morphine INJ 10 MG/ML 1ML (SYR OR VIAL) IVP PRN ×2 (14:30)
[2019-04-01] MEDS ORDERED: ceFAZolin INJECTION 1,000 MG ONE (14:55)
[2019-04-01] MEDS ORDERED: ONDANSETRON 4 MG/2 ML (SDV) Z0FRAN ONE ×2 (15:13→15:19)
[2019-04-01] MEDS ORDERED: PHENYLEPHRINE 100 MCG/ML 10 ML (ANESTHESIA) SYR ONE (15:27)
--- NOTE | 2019-04-01 16:29 | Diagnostic Imaging Report ---
INDICATION: Fluoroscopy for Groshong catheter placement. FINDINGS: Fluoroscopy was provided in the OR during Groshong catheter placement. 18 seconds of fluoroscopy was utilized. Images demonstrate a right-sided Groshong catheter. IMPRESSION: Fluoroscopy during Groshong catheter placement. Dictated by: Dictated on workstation # [id number]
[2019-04-01] MEDS ORDERED: HYDROmorphone 2 MG/ML VIAL (DILAUDID) IV ONE (16:30)
--- NOTE | 2019-04-01 16:35 | Progress Note-Post Operative ---
Post-Operative Progess Note Surgeon (s)/Business And Marketing Teacher (s) Surgeon MAUDE GOLDSMITH MD Business And Marketing Teacher: none Pre-Operative Diagnosis esophageal cancer Post-Operative Diagnosis same Procedure & Operative Findings Date of Procedure 04/01/19 Procedure Performed/Findings right sc groshong placement under flouro. PEG tube placement. Anesthesia Type mac with local Estimated Blood Loss Estimated blood loss (mL): minimal Specimens/Packing Specimens Removed none MAUDE GOLDSMITH MD Apr 01, 2019 16:35
--- NOTE | 2019-04-01 16:47 | Diagnostic Imaging Report ---
Indication: Central line placement Portable chest 4:37 PM There is left subclavian dual-chamber pacemaker with IACD. Postop changes from a median sternotomy. Right subclavian Port-A-Cath tip projects over the SVC. There is cardiomegaly. There is a small left pleural effusion. Impression: Left pleural effusion appears smaller compared to prior exam done 11/14/2017. Dictated by: Dictated on workstation # [id number]
--- NOTE | 2019-04-01 16:50 | NUR ---
TO AMB SURG FROM PAR PER CART. ALERT, DENIES RIGHT UPPER CHEST PORT INSERTION SITE PAIN, RATES UPPER ABD PEG INSERTION SITE PAIN 1. AT SIDE.
--- NOTE | 2019-04-01 17:45 | NUR ---
NO CHANGE IN SITE OR PAIN ASSESSMENTS. CASE OF ENSURE PROVIDED. READY FOR DISMISSAL.
--- NOTE | 2019-04-01 21:46 | OPERATIVE REPORT ---
DATE OF SERVICE: 04/01/2019 ATTENDING PRIMARY CARE PHYSICIAN: Nidhi Roper DO PREOPERATIVE DIAGNOSIS: Esophageal cancer, dysphagia, weight loss. POSTOPERATIVE DIAGNOSES: Esophageal cancer, dysphagia, weight loss. PROCEDURE: Placement of right subclavian Groshong implantable catheter, percutaneous endoscopic gastrostomy tube placement. SURGEON: Maude Goldsmith MD ANESTHESIA: Monitored anesthesia care with local. ESTIMATED BLOOD LOSS: Minimal. DISPOSITION: The patient tolerated the procedure well. INDICATIONS: The patient is a 78-year-old male who was found to have an esophageal mass one week ago. This was biopsied and consistent with an adenocarcinoma. The family wishes to proceed with further care including potential chemotherapy as well as an augmentation of nutritional status with placement of a percutaneous gastrostomy tube and tube feeds. After chemotherapy he will most likely need further imaging to restage and also to evaluate his overall clinical status potentially for further therapy including surgical resection. DESCRIPTION OF PROCEDURE: The patient was brought to the operating room, laid supine on the table. After adequate IV pain and sedating medications and monitored anesthesia care, the chest and neck were prepped and draped in standard surgical fashion. A 0.5% Marcaine with epinephrine was used to anesthetize the right subclavian region. The right subclavian vein was then cannulated with drawing of venous blood. The guidewire was then inserted under fluoroscopy. A small skin incision was then made using a 15 blade and a tract was then created using a venous dilator and sheath. The guidewire and the dilator were then removed and the Groshong implantable catheter was placed until the catheter tip was at the superior vena cava -- right atrial junction. The sheath was then removed. The inner wire within the catheter was then removed and the catheter cut down to size and port placed on to the catheter. The skin incision was then extended laterally and a chest reservoir was then created between the subcutaneous fat and affect anterior pectoralis fascia using blunt dissection as well as electrocautery with visualization of good hemostasis. The port was then placed in the reservoir and sutured to the anterior pectoralis fascia using interrupted 3-0 Vicryl. The subcutaneous tissue was then reapproximated using 3-0 Vicryl interrupted sutures and the skin was closed using 4-0 Monocryl running subcuticular sutures. Wound was then cleaned and covered with Dermabond. Under the same anesthesia, we then proceeded with percutaneous gastrostomy tube placement. An EGD was performed after the mouthpiece was applied and the anterior wall of the stomach identified. The subcutaneous tissue was then anesthetized using a localizing needle. The needle was identified going through the stomach wall. Before this, the abdomen was prepped and draped in standard surgical fashion. A small incision was then made using 11 blade transversely and the cannulating needle and sheath were then introduced under direct visualization into the anterior wall of the stomach. The trocar was then removed and the guidewire was then inserted and then a snare through the endoscope and pulled out the mouth. The gastrostomy tube was placed onto the wire and pulled through until the rubber bolster was firmly abutting the anterior stomach wall under direct visualization through the endoscope. The catheter was then cut down to size Betadine was placed on the skin followed by gauze sponges followed by the external rubber bolster. The stop rubber stopper was then placed on the end of the catheter and 4 x 4 gauze placed over the abdomen and taped to the abdominal wall. The patient tolerated the procedure well. We will get a post-procedure chest x-ray. The gastrostomy tube as well as a Groshong catheter may be accessed and used at any time. He is scheduled for further evaluation with oncology visit as well as further metastatic workup with a CT scan of the neck, abdomen, and chest tomorrow. Job ID: [id number] DocumentID: [id number] Dictated Date: 04/01/2019 16:48:21 Lumber Racker Date: 04/01/2019 21:45:06 Dictated By: MAUDE GOLDSMITH MD [facility]
== END 2019-04-01 17:45 | disposition home or self-care (01) ==
LOC: SDC 09:47
PROVIDERS: ATTEND Surgery
DX: C15.9 Malignant neoplasm of esophagus, unspecified (principal); R13.10 Dysphagia, unspecified; I25.10 Atherosclerotic heart disease of native coronary artery without angina pectoris; I11.0 Hypertensive heart disease with heart failure; I50.9 Heart failure, unspecified; K21.9 Gastro-esophageal reflux disease without esophagitis; K29.70 Gastritis, unspecified, without bleeding; K44.9 Diaphragmatic hernia without obstruction or gangrene; E11.9 Type 2 diabetes mellitus without complications; E78.5 Hyperlipidemia, unspecified; I48.92 Unspecified atrial flutter; E80.6 Other disorders of bilirubin metabolism; Z95.1 Presence of aortocoronary bypass graft; Z95.0 Presence of cardiac pacemaker; Z79.82 Long term (current) use of aspirin; Z79.01 Long term (current) use of anticoagulants; Z79.899 Other long term (current) drug therapy; Z87.891 Personal history of nicotine dependence; Z80.0 Family history of malignant neoplasm of digestive organs
CPT/HCPCS: 36415; 71045; 80053; 82378; 85025; 87081

== ENCOUNTER → 2019-04-02 | Outpatient (CLI) | payer MEDICARE, OTHER ==
[~2019-04-02] MED LIST changes: +HYDR-34 PO
--- NOTE | 2019-04-02 17:47 | Diagnostic Imaging Report ---
PROCEDURE: CT chest, abdomen, and pelvis without contrast. TECHNIQUE: Multiple contiguous axial images were obtained through the chest, abdomen, and pelvis without the use of intravenous contrast. Auto Exposure Controls were utilized during the CT exam to meet ALARA standards for radiation dose reduction. INDICATION: 78-year-old male with esophageal CA. COMPARISON: 11/10/2017. FINDINGS: There is no axillary adenopathy. Assessment of mediastinum is limited due to the lack of IV contrast. Cardiac contour is upper limits of normal. Coronary calcifications are seen. There is also calcification of the aortic root. Nonaneurysmal aortic calcifications are seen. There is also calcification at the origin of great vessels. There is a moderate-sized right pleural effusion with a large left pleural effusion. There is volume loss with atelectatic consolidation in left lower lobe. No discrete lung nodules are identified. A [id number] right pleural effusion is also present. Liver shows volume loss suggesting cirrhosis. There is a moderate amount of ascites. Paucity of mesenteric fat does limit assessment. Lack of IV and luminal contrast also limits assessment. There otherwise appears to be new uniform attenuation within the liver. Gallbladder shows several small granular type calcifications. There is wall thickening most likely due to hepatic dysfunction. Spleen is normal. There is a small hiatal hernia. Stomach and duodenal sweep are grossly normal. There is a PEG tube in place. Nonopacified loops of small show segmental loops of small bowel mucosal thickening but no distention. Kidneys appear normal in size, composition, and contour. There is no evidence of obstructive uropathy. Both ureters are seen intermittently through their course. Filled bladder is unremarkable. Large bowel contains fecal material and gas. Nonaneurysmal aortic calcifications extend the iliac and femoral arteries. Bone windows show degenerative changes in the axial skeleton with marginal endplate osteophytes as well as multilevel hypertrophic facet changes. No discrete lytic or blastic changes suggested. IMPRESSION: 1. Large left pleural effusion with moderate-sized right pleural effusion. 2. There is near-complete atelectatic consolidation with volume loss in the left lower lobe. Overall assessment of the mediastinum is limited due to lack of IV contrast. 3. Coronary calcifications as well as borderline cardiomegaly. 4. Probable cirrhosis with volume loss and nodularity of the liver but no definite discrete mass is identified. 5. Moderate ascites. 6. Gallbladder mucosal thickening is felt to be due to hepatic dysfunction. There is however suggestion of cholelithiasis with calcified granular stones in the gallbladder fundus. Assessment is limited due to motion. 7. There is nondistended small bowel with some mucosal thickening which may be due to mesenteric venous congestion. 8. Osteoporosis with diffuse degenerative changes throughout the axial skeleton but no lytic or blastic changes. Additional nonemergent findings as described above. Dictated by: Dictated on workstation # [id number]
== END ==
LOC: RAD 16:31
PROVIDERS: ATTEND Surgery
DX: C15.9 Malignant neoplasm of esophagus, unspecified (principal); J90 Pleural effusion, not elsewhere classified; J98.11 Atelectasis; J18.1 Lobar pneumonia, unspecified organism; J98.4 Other disorders of lung; I25.10 Atherosclerotic heart disease of native coronary artery without angina pectoris; K82.8 Other specified diseases of gallbladder; K63.89 Other specified diseases of intestine
CPT/HCPCS: 71250; 74176

== ENCOUNTER 2019-04-10 10:03 | Outpatient (RCR) | payer MEDICARE, OTHER | END 2019-04-23 11:17 | disposition home or self-care (01) | LOC: ONC 10:03 | PROVIDERS: ATTEND Internal Medicine Hematology & Oncology | DX: C15.9 Malignant neoplasm of esophagus, unspecified (principal); I25.10 Atherosclerotic heart disease of native coronary artery without angina pectoris; I11.0 Hypertensive heart disease with heart failure; I50.9 Heart failure, unspecified; E11.9 Type 2 diabetes mellitus without complications; E78.5 Hyperlipidemia, unspecified; Z95.1 Presence of aortocoronary bypass graft; Z95.0 Presence of cardiac pacemaker; Z79.82 Long term (current) use of aspirin; Z79.01 Long term (current) use of anticoagulants; Z79.899 Other long term (current) drug therapy; Z87.891 Personal history of nicotine dependence; Z80.0 Family history of malignant neoplasm of digestive organs | CPT/HCPCS: 77290; 77295; 77300; 77334; 77417; 77470; 99204; 99214 ==